=== PATIENT | female | born 1940 | race Caucasian/White ===

== ENCOUNTER 2019-04-21 17:59 | Inpatient (IN) | payer MEDICARE, OTHER, SELFPAY ==
[2019-04-21] VITALS (8 sets, daily range): BP systolic 113–135; BP diastolic 65–71; PULSE 62–115; RESP 16–20; TEMP 36.1–36.7; O2SAT 94–98; BMI 19.6; BMI 20.1
--- NOTE | 2019-04-21 18:50 | RAD_ITS ---
STUDY: X-RAY CHEST REASON FOR EXAM: Female, 78 years old. Cough, SOB. TECHNIQUE: PA and lateral chest. COMPARISON: None. FINDINGS: The lungs are clear and expanded. There is no demonstrated pleural abnormality. Normal size heart. Normal mediastinum and torsten. Normal visualized pulmonary arteries. Normal visualized aortic arch and descending thoracic aorta. Normal visualized thoracic spine. Normal visualized ribs, clavicles, and shoulders. There is no demonstrated abnormality of the visualized soft tissue structures of the upper abdomen. RAD/Chest PA and Lateral IMPRESSION: Normal x-ray examination of the chest. Electronically Signed: Edith Jade MD at 20:17 EST Tel , Service support ,
[2019-04-21] MEDS: Albuterol 2.5 MG/3 ML VIAL.NEB. INHALATION ×3 (18:57→19:36)
[2019-04-21] MEDS: Ipratropium/Albuterol Sulfate 3 ML AMPUL.NEB INHALATION (18:57)
--- NOTE | 2019-04-21 20:11 | ED.VISSUMM ---
- ER Visit Summary Date of Service: 04/21/19 Chief Complaint: Bronchitis History of Present Illness: The patient is a 78 F who states that about 2 weeks ago she became ill starting with a sore throat and then progressed with shortness of breath and cough. She notes a history of asthma and is a former smoker. She states that she went to see her nurse practitioner a few days ago and was started on what sounds like methylprednisolone as well as albuterol. She used to have a nebulizer at home but recently moved from [place] and lost it. She denies any fevers or chills. She states that she has been taking a cough medicine with codeine. She does note sputum production. She states that she just feels very poorly and cannot take a deep breath. Physical Examination: Afebrile vital signs are stable. Gen: Well-nourished well-developed Head: Normocephalic atraumatic Eyes: Perrl EOMI ENT: TMs clear no rhinorrhea moist mucous membranes Neck: Supple no lymphadenopathy no JVD nontender CVS: Regular rate rhythm no murmurs normal S1-S2 Respiratory: No distress diminished breath sounds bilaterally rhonchi and inspiratory and expiratory wheezing chest nontender Abdomen: Soft nontender nondistended normal bowel sounds no masses Back: Nontender Extremity: Nontender no edema Skin: Normal color no rash Neuro: alert orientated ?3 CN II-XII intact normal strength sensation reflexes gait cerebellar Psych: Normal affect normal mood Test Results: Chest x-ray was negative for infiltrate. Potassium 3.1 is most likely due to the albuterol we gave her. Emergency Department Course and Treatment: Patient received 3 breathing treatments. Upon repeat lung auscultation there is improved aeration but continued rhonchi and expiratory wheezing. Patient's peak flows the first 1 was around 350 but the rest were under 300. Patient states she does not feel well and is concerned about her breathing. I think would be reasonable to bring her in under observation status. I administered Solu-Medrol and a dose of doxycycline. Impression: 1. Acute asthmatic bronchitis with bronchospasm This note was generated with [employer] dictation software. It may contain incorrect words, spelling, and punctuation that were not noted in review of the chart prior to signing ED Disposition - Plan for ED Patient: Referrals: Qian Colindres MD [Primary Care Provider] -
[2019-04-21] MEDS: Doxycycline 100 MG CAPSULE PO (20:43)
[2019-04-21] MEDS: MethylPREDNISolone 125 MG/2 ML Vial IV (20:43)
[2019-04-21 21:35] LABS: Anion Gap 9 (5-15); BUN 18 mg/dL (7-18); BUN/Creat Ratio 20.6 RATIO (10-20); Chloride 101 mmol/L (98-107); Creatinine, Serum 0.87 mg/dL (0.55-1.02); EST Glomerular Filtration Rate 66 mL/min (>60); Est Glom Filt Rate - Afr Amer 80 mL/min (>60); Estimated Creatinine Clearance 45.06 ml/min; Glucose 190 mg/dL (74-106); Potassium 3.1 mmol/L (3.5-5.1); Sodium Level 137 mmol/L (136-145)
--- NOTE | 2019-04-21 21:39 | HP.PCM_ITS ---
Problem List (1) Asthmatic bronchitis with acute exacerbation Status: Acute (2) Anxiety Status: Acute History of Present Illness Date of Admission: 04/21/19 Chief Complaint: shortness of breath The patient is a 78 year old F with a significant history of anxiety disorder and asthma who presented to emergency department with 2 weeks of persistent shortness of breath. Her symptoms started with sore throat. Associated with her symptoms is productive cough of dark green sputum. Also she has some mild running nose. Further she has chest pain. She feels congestion in her chest. Reportedly she has been on 2 rounds of Z-Rey. Also she has received Solu-Medrol Dosepak at home. At the emergency department patient was given breathing treatment.; doxycycline and Solu-Medrol. At home she used to use a nebulizer machine for breathing treatment. She recently moved from [place] to [place] and lost her nebulization machine in transit. Now she is on home multidose inhaler. At the emergency department her initial peak flow was about 350. Later it decreased to about 300. Past Medical History Medical History: Medical History (Last Reviewed 04/21/19 @ 22:53 by Phi Bowen MD) Asthma J45.909 Allergies Penicillins Allergy (Verified 04/21/19 18:01) Vomiting MYOCIN Allergy (Uncoded 04/21/19 18:01) Other PT STATES SHE IS ALLERGIC TO MOST MOYCIN DRUGS. Home Medications: Ambulatory Orders Medication Instructions Recorded Albuterol Inhaler [Ventolin Hfa 2 puff INHALATION Q4H PRN PRN 04/21/19 (SP)] Azithromycin 250 mg PO DAILY 04/21/19 Clonazepam 1 mg PO BID 04/21/19 Hydrocodone/Acetaminophen 1 tab PO BID PRN 04/21/19 [Hydrocodone-Acetamin 5-325 mg] MethylPREDNISolone DosePak [Medrol 4 mg PO DAILY 04/21/19 DosePak] Trazodone HCl 100 mg PO DAILY 04/21/19 Surgical History: appendectomy, cholecystectomy, tonsillectomy, - - Lives: With Family Smoking Status: Former smoker Alcohol: None - *Family History Maternal History Items: Cancer - Breast, Dementia Paternal History Items: Heart Disease - Her father from heart problem at age 57 Review of Systems Constitutional: Denies: Chills, Fever, Weight Change HEENT: Reports: Head Aches, Sinus Drainage, Sore Throat Cardiovascular: Reports: Chest Pain. Denies: Palpitations Respiratory: Reports: Cough, Shortness of Breath, Sputum production, Wheezing Gastrointestinal: Denies: Abdominal Pain, Nausea, Vomiting Genitourinary: Denies: Dysuria Musculoskeletal: Denies: Joint Pain, Joint Tenderness Skin: Denies: Rash, Wounds Neurological: Denies: Numbness, Tingling, Focal weakness Psychiatric: Reports: Anxiety. Denies: Depression, Homicidal Ideations, Suicidal Ideations Hematologic/ Lymphatic: Denies: Easy Bruising, Easy Bleeding VTE Information - Inpt Only VTE Present on Admission: No VTE Mechan Device Prophylaxis: None VTE Pharm Prophylaxis ordered?: Yes Patient Problems: Active and Suspected Problems (Last Updated 04/21/19 @ 22:47 by Phi Bowen MD) Asthmatic bronchitis with acute exacerbation (Acute) Anxiety (Acute) - Physical Exam Vitals/I&O's: Vital Signs Temp Pulse Resp BP Pulse Ox 96.9 F L 101 H 20 H 113/68 94 04/21/19 18:01 04/21/19 20:51 04/21/19 20:51 04/21/19 20:51 04/21/19 20:51 Oxygen Delivery Method Room Air Weight: 54.431 kg Body Mass Index (BMI) 19.6 General: Alert, Oriented x3, Cooperative HEENT: Atraumatic, PERRLA, EOMI, Normocephalic, TM's Clear, EAC Clear Neck: Supple, No JVD, Negative Carotid Bruits Lungs: No rales, Rhonchi, Tachypneic, Wheezes Cardiovascular: Regular Rhythm, Normal S1, Normal S2, No murmurs, Tachycardic Abdomen: Bowel Sounds Present, Soft, Non Tender Extremities: No edema, Capillary Refill Less than 3 Seconds Skin: No rashes, No breakdown Musculoskeletal: No Tenderness to Palpation of Joints or Extremities Neurological: Cranial nerves II-XII grossly intact Psych/Mental Status: Anxious Laboratory Results 04/21/19 20:35: WBC Cancelled, Corrected WBC Cancelled, RBC Cancelled, Hgb Cancelled, Hct Cancelled, MCV Cancelled, MCH Cancelled, MCHC Cancelled, RDW Std Deviation Cancelled, RDW Coeff of Ester Cancelled, Plt Count Cancelled, MPV Cancelled, Immature Gran % (Auto) Cancelled, Neut % (Auto) Cancelled, Lymph % (Auto) Cancelled, [place] % (Auto) Cancelled, Eos % (Auto) Cancelled, Baso % (Auto) Cancelled, Absolute Neuts (auto) Cancelled, Absolute Lymphs (auto) Cancelled, Total Counted Cancelled, Neutrophils % (Manual) Cancelled, Band Neutrophils % Cancelled, Lymphocytes % (Manual) Cancelled, Monocytes % (Manual) Cancelled, Eosinophils % (Manual) Cancelled, Basophils % (Manual) Cancelled, Metamyelocytes % Cancelled, Myelocytes % Cancelled, Promyelocytes % Cancelled, Blast Cells % Cancelled, Plasma Cell % (Manual) Cancelled, Other Cells % Cancelled, Nucleated RBC % Cancelled, Nucleated RBCs/100 WBC Cancelled, Differential Comment Cancelled, Diff Path Review Cancelled, Hypersegmented Neuts Cancelled, Atypical Lymphocytes Cancelled, Reactive Lymphocytes Cancelled, Smudge Cells Cancelled, Toxic Granulation Cancelled, Toxic Vacuolation Cancelled, Dohle Bodies Cancelled, Amber Rods Cancelled, Platelet Estimate Cancelled, Plt Morphology Comment Cancelled, RBC Morphology Cancelled, Polychromasia Cancelled, Hypochromasia Cancelled, Poikilocytosis Cancelled, Basophilic Stippling Cancelled, Anisocytosis Cancelled, Microcytosis Cancelled, Macrocytosis Cancelled, Spherocytes Cancelled, Sickle Cells Cancelled, Target Cells Cancelled, Tear Drop Cells Cancelled, Ovalocytes Cancelled, Stomatocytes Cancelled, [place] Bodies Cancelled, [place] Cells Cancelled, Bite Cells Cancelled, Crenated Cell Cancelled, Acanthocytes (Spur) Cancelled, Rouleaux Cancelled, Schistocytes Cancelled 04/21/19 20:35: Sodium Cancelled, Potassium Cancelled, Chloride Cancelled, Carbon Dioxide Cancelled, Anion Gap Cancelled, BUN Cancelled, Creatinine Cancelled, Estim Creat Clear Calc Cancelled, Est GFR (MDRD) Af Amer Cancelled, Est GFR (MDRD) Non-Af Cancelled, BUN/Creatinine Ratio Cancelled, Glucose Cancelled, Calcium Cancelled 04/21/19 21:15: WBC Cancelled, Corrected WBC Cancelled, RBC Cancelled, Hgb Cancelled, Hct Cancelled, MCV Cancelled, MCH Cancelled, MCHC Cancelled, RDW Std Deviation Cancelled, RDW Coeff of Ester Cancelled, Plt Count Cancelled, MPV Cancelled, Immature Gran % (Auto) Cancelled, Neut % (Auto) Cancelled, Lymph % (Auto) Cancelled, [place] % (Auto) Cancelled, Eos % (Auto) Cancelled, Baso % (Auto) Cancelled, Absolute Neuts (auto) Cancelled, Absolute Lymphs (auto) Cancelled, Total Counted Cancelled, Neutrophils % (Manual) Cancelled, Band Neutrophils % Cancelled, Lymphocytes % (Manual) Cancelled, Monocytes % (Manual) Cancelled, Eosinophils % (Manual) Cancelled, Basophils % (Manual) Cancelled, Metamyelocytes % Cancelled, Myelocytes % Cancelled, Promyelocytes % Cancelled, Blast Cells % Cancelled, Plasma Cell % (Manual) Cancelled, Other Cells % Cancelled, Nucleated RBC % Cancelled, Nucleated RBCs/100 WBC Cancelled, Differential Comment Cancelled, Diff Path Review Cancelled, Hypersegmented Neuts Cancelled, Atypical Lymphocytes Cancelled, Reactive Lymphocytes Cancelled, Smudge Cells Cancelled, Toxic Granulation Cancelled, Toxic Vacuolation Cancelled, Dohle Bodies Cancelled, Amber Rods Cancelled, Platelet Estimate Cancelled, Plt Morphology Comment Cancelled, RBC Morphology Cancelled, Polychromasia Cancelled, Hypochromasia Cancelled, Poikilocytosis Cancelled, Basophilic Stippling Cancelled, Anisocytosis Cancelled, Microcytosis Cancelled, Macrocytosis Cancelled, Spherocytes Cancelled, Sickle Cells Cancelled, Target Cells Canc elled, Tear Drop Cells Cancelled, Ovalocytes Cancelled, Stomatocytes Cancelled, [place] Bodies Cancelled, [place] Cells Cancelled, Bite Cells Cancelled, Crenated Cell Cancelled, Acanthocytes (Spur) Cancelled, Rouleaux Cancelled, Schistocytes Cancelled 04/21/19 21:15: Sodium 137, Potassium 3.1 L, Chloride 101, Carbon Dioxide 27.0, Anion Gap 9, BUN 18, Creatinine 0.87, Estim Creat Clear Calc 45.06, Est GFR (MDRD) Af Amer 80, Est GFR (MDRD) Non-Af 66, BUN/Creatinine Ratio 20.6 H, Glucose 190 H, Calcium 9.0 Assessment/Plan All Active Problems (Last Updated 04/21/19 @ 22:47 by Phi Bowen MD) Asthmatic bronchitis with acute exacerbation (Acute) Anxiety (Acute) The patient is a 78 year old F with a significant history of anxiety disorder and asthma who presented to emergency department with 2 weeks of persistent shortness of breath; sore throat; productive cough of dark green sputum; mild runny nose; chest pain consistent acute asthmatic bronchitis. Acute exacerbation of asthmatic bronchitis Likely viral but with but with persistent symptoms for about 2 weeks we will continue patient on doxycycline that was started at the emergency department. Schedule breathing treatments and PRN breathing treatments ordered. Patient received Solu-Medrol 125 mg in the emergency department. Continue patient on salmeterol inpatient. Acapella and peak flow ordered. Mucinex ordered We will get comprehensive respiratory pathogen panel. 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 Placed on MedSurg on telemetry. Potassium 60 mEq x 1; and 40 mEq twice daily Trend BMP. Anxiety disorder: Klonopin continued Insomnia Home trazodone continued DVT Prophylaxis Subcutaneous Lovenox ordered. Code Visit OBSV E&M: 91268 Initial observation care L3
[2019-04-21 22:02] LABS: Absolute Lymphocyte Count 0.87 X10^3/uL (0.83-4.51); Absolute Neutrophil Count 7.8 X10^3/uL (2.0-7.7); Basophil# 0.01 X10^3/uL; Basophil% 0.1 % (0-1); Hematocrit 42.1 % (37-47); Hemoglobin 14.2 g/dL (12.0-15.0); Lymphocyte # 0.87 X10^3/ul (4.0); Lymphocyte % 9.5 % (19-41); Mean Corp Hgb Conc 33.7 g/dL (32-36); Mean Corpuscular Hgb 33.1 pg (27.0-32.0); Mean Corpuscular Volume 98.1 fL (81-99); Mean Platelet Vol. 9.1 fl (6.2-12.0); Monocyte# 0.46 X10^3/uL; NRBC Flagged by Analyzer 0 % (0-5); Neutrophil # 7.76 X10^3/uL (2.7-7.7); Neutrophil % 84.9 % (47-70); Platelet Count 185 K/mm3 (150-450); RBC Distribution Width SD 43.3 fl (35.1-43.9); Red Blood Count 4.29 M/mm3 (4.2-5.4); White Blood Count 9.2 K/mm3 (4.4-11.0)
[2019-04-21 23:12] LABS: Hemoglobin A1c 5.2 % (4.2-6.3)
[2019-04-22] VITALS (13 sets, daily range): BP systolic 125–137; BP diastolic 65–83; PULSE 70–119; RESP 14–20; TEMP 36.7–37.1; O2SAT 97–100
[2019-04-22] MEDS: traZODone 100 MG Tablet PO ×2 (00:25→21:13)
[2019-04-22] MEDS: guaiFENesin 1,200 MG Tablet 1200 MG PO ×3 (00:26→21:13)
[2019-04-22] MEDS: Acetaminophen 325 MG Tablet 650 MG PO (04:15)
[2019-04-22] MEDS: Albuterol 2.5 MG/3 ML VIAL.NEB. INHALATION ×2 (05:49→20:29)
[2019-04-22 05:57] LABS: Anion Gap 7 (5-15); BUN 13 mg/dL (7-18); BUN/Creat Ratio 16.4 RATIO (10-20); Calcium,Total 8.7 mg/dL (8.5-10.1); Chloride 105 mmol/L (98-107); EST Glomerular Filtration Rate 74 mL/min (>60); Est Glom Filt Rate - Afr Amer 90 mL/min (>60); Estimated Creatinine Clearance 50.14 ml/min; Glucose 144 mg/dL (74-106); Potassium 4.5 mmol/L (3.5-5.1); Sodium Level 137 mmol/L (136-145)
--- NOTE | 2019-04-22 07:33 | PN_ITS ---
Patient Problems: Active and Suspected Problems (Last Reviewed 04/21/19 @ 22:53 by Phi Bowen MD) Asthmatic bronchitis with acute exacerbation (Acute) Anxiety (Acute) Reason for Visit: Follow-up acute asthma exacerbation Subjective: Patient is a 78-year-old lady with history of moderate intermittent asthma who presented with shortness of breath an assessment of acute asthma exacerbation made admitted to regular nursing floor for further management Objective: GENERAL: cooperative HEENT: Atraumatic; EYES; Anicteric, Normal Conjunctiva NECK; supple, normal thyroid, RESPIRATORY: Diminished to auscultation with bilateral wheezes CARDIOVASCULAR: Regular S1 S2, GI: soft, normoactive bowel sounds, : No Renal angle tenderness; EXTREMITIES: No edema, no clubbing, MUSCULOSKELETAL: no muscle waisting NEURO: Awake; no lateralizing signs. SKIN: No Rash PSYCH; Flat affect Vitals/I&O's: Vital Signs Temp Pulse Resp BP Pulse Ox 98.7 F 85 18 130/72 H 98 04/22/19 05:17 04/22/19 05:49 04/22/19 05:49 04/22/19 05:17 04/22/19 05:17 Oxygen Delivery Method Room Air Weight: 55.7 kg Body Mass Index (BMI) 20.1 Intake and Output for Last 24 Hours 04/20/19 04/21/19 04/22/19 23:59 23:59 23:59 Intake Total 1200 / 1200 Balance 1200 / 1200 Laboratory Results 04/21/19 20:35: WBC Cancelled, Corrected WBC Cancelled, RBC Cancelled, Hgb Cancelled, Hct Cancelled, MCV Cancelled, MCH Cancelled, MCHC Cancelled, RDW Std Deviation Cancelled, RDW Coeff of Ester Cancelled, Plt Count Cancelled, MPV Cancelled, Immature Gran % (Auto) Cancelled, Neut % (Auto) Cancelled, Lymph % (Auto) Cancelled, [place] % (Auto) Cancelled, Eos % (Auto) Cancelled, Baso % (Auto) Cancelled, Absolute Neuts (auto) Cancelled, Absolute Lymphs (auto) Cancelled, Total Counted Cancelled, Neutrophils % (Manual) Cancelled, Band Neutrophils % Cancelled, Lymphocytes % (Manual) Cancelled, Monocytes % (Manual) Cancelled, Eosinophils % (Manual) Cancelled, Basophils % (Manual) Cancelled, Metamyelocytes % Cancelled, Myelocytes % Cancelled, Promyelocytes % Cancelled, Blast Cells % Cancelled, Plasma Cell % (Manual) Cancelled, Other Cells % Cancelled, Nucleated RBC % Cancelled, Nucleated RBCs/100 WBC Cancelled, Differential Comment Cancelle d, Diff Path Review Cancelled, Hypersegmented Neuts Cancelled, Atypical Lymphocytes Cancelled, Reactive Lymphocytes Cancelled, Smudge Cells Cancelled, Toxic Granulation Cancelled, Toxic Vacuolation Cancelled, Dohle Bodies Cancelled, Amber Rods Cancelled, Platelet Estimate Cancelled, Plt Morphology Comment Cancelled, RBC Morphology Cancelled, Polychromasia Cancelled, Hypochromasia Cancelled, Poikilocytosis Cancelled, Basophilic Stippling Cancelled, Anisocytosis Cancelled, Microcytosis Cancelled, Macrocytosis Cancelled, Spherocytes Cancelled, Sickle Cells Cancelled, Target Cells Cancelled, Tear Drop Cells Cancelled, Ovalocytes Cancelled, Stomatocytes Cancelled, [place] Bodies Cancelled, [place] Cells Cancelled, Bite Cells Cancelled, Crenated Cell Cancelled, Acanthocytes (Spur) Cancelled, Rouleaux Cancelled, Schistocytes Cancelled 04/21/19 20:35: Sodium Cancelled, Potassium Cancelled, Chloride Cancelled, Carbon Dioxide Cancelled, Anion Gap Cancelled, BUN Cancelled, Creatinine Cancelled, Estim Creat Clear Calc Cancelled, Est GFR (MDRD) Af Amer Cancelled, Est GFR (MDRD) Non-Af Cancelled, BUN/Creatinine Ratio Cancelled, Glucose Cancelled, Calcium Cancelled 04/21/19 21:15: WBC Cancelled, Corrected WBC Cancelled, RBC Cancelled, Hgb Cancelled, Hct Cancelled, MCV Cancelled, MCH Cancelled, MCHC Cancelled, RDW Std Deviation Cancelled, RDW Coeff of Ester Cancelled, Plt Count Cancelled, MPV Cancelled, Immature Gran % (Auto) Cancelled, Neut % (Auto) Cancelled, Lymph % (Auto) Cancelled, [place] % (Auto) Cancelled, Eos % (Auto) Cancelled, Baso % (Auto) Cancelled, Absolute Neuts (auto) Cancelled, Absolute Lymphs (auto) Cancelled, Total Counted Cancelled, Neutrophils % (Manual) Cancelled, Band Neutrophils % Cancelled, Lymphocytes % (Manual) Cancelled, Monocytes % (Manual) Cancelled, Eosinophils % (Manual) Cancelled, Basophils % (Manual) Cancelled, Metamyelocytes % Cancelled, Myelocytes % Cancelled, Promyelocytes % Cancelled, Blast Cells % Cancelled, Plasma Cell % (Manual) Cancelled, Other Cells % Cancelled, Nucleated RBC % Cancelled, Nucleated RBCs/100 WBC Cancelled, Differential Comment Cancelled, Diff Path Review Cancelled, Hypersegmented Neuts Cancelled, Atypical Lymphocytes Cancelled, Reactive Lymphocytes Cancelled, Smudge Cells Cancelled, Toxic Granulation Cancelled, Toxic Vacuolation Cancelled, Dohle Bodies Cancelled, Amber Rods Cancelled, Platelet Estimate Cancelled, Plt Morphology Comment Cancelled, RBC Morphology Cancelled, Polychromasia Cancelled, Hypochromasia Cancelled, Poikilocytosis Cancelled, Basophilic Stippling Cancelled, Anisocytosis Cancelled, Microcytosis Cancelled, Macrocytosis Cancelled, Spherocytes Cancelled, Sickle Cells Cancelled, Target Cells Cancelled, Tear Drop Cells Cancelled, Ovalocytes Cancelled, Stomatocytes Cancelled, [place] Bodies Cancelled, [place] Cells Cancelled, Bite Cells Cancelled, Crenated Cell Cancelled, Acanthocytes (Spur) Cancelled, Rouleaux Cancelled, Schistocytes Cancelled 04/21/19 21:15: Sodium 137, Potassium 3.1 L, Chloride 101, Carbon Dioxide 27.0, Anion Gap 9, BUN 18, Creatinine 0.87, Estim Creat Clear Calc 45.06, Est GFR (MDRD) Af Amer 80, Est GFR (MDRD) Non-Af 66, BUN/Creatinine Ratio 20.6 H, Glucose 190 H, Calcium 9.0 04/21/19 21:39: WBC 9.2, RBC 4.29, Hgb 14.2, Hct 42.1, MCV 98.1, MCH 33.1 H, MCHC 33.7, RDW Std Deviation 43.3, RDW Coeff of Ester 12.0, Plt Count 185, MPV 9.1, Immature Gran % (Auto) 0.500, Neut % (Auto) 84.9 H, Lymph % (Auto) 9.5 L, [place] % (Auto) 5.0, Eos % (Auto) 0.0, Baso % (Auto) 0.1, Absolute Neuts (auto) 7.8 H, Absolute Lymphs (auto) 0.87, Nucleated RBC % 0 04/21/19 21:39: Hemoglobin A1c 5.2 04/22/19 05:05: Sodium 137, Potassium 4.5, Chloride 105, Carbon Dioxide 25.0, Anion Gap 7, BUN 13, Creatinine 0.80, Estim Creat Clear Calc 50.14, Est GFR (MDRD) Af Amer 90, Est GFR (MDRD) Non-Af 74, BUN/Creatinine Ratio 16.4, Glucose 144 H, Calcium 8.7 Current Medications Acetaminophen (Tylenol) 650 mg PO Q6H PRN PRN PRN Reason: Pain Score 1-3/Temp > 100.7 F Last Admin: 04/22/19 04:15 Dose: 650 mg Documented by: Albuterol Sulfate (Ventolin Aerosols) 2.5 mg INHALATION Q2H PRN PRN PRN Reason: Shortness of Breath/Wheezing Last Admin: 04/22/19 05:49 Dose: 2.5 mg Documented by: Clonazepam (Klonopin) 1 mg PO BID COUNTS INCLUDE 234 BEDS AT THE [facility] Dextrose (D50w Syringe) 0 gm IV X1 PRN; Protocol PRN Reason: Hypoglycemia Doxycycline Monohydrate (Doxycycline) 100 mg PO BID RAM[facility]N Enoxaparin Sodium (Lovenox) 40 mg SC DAILY RAM[facility]N Glucagon () 1 mg IM .X1 PRN PRN Reason: Hypoglycemia Guaifenesin (Mucinex) 1,200 mg PO BID COUNTS INCLUDE 234 BEDS AT THE [facility] Last Admin: 04/22/19 00:26 Dose: 1,200 mg Documented by: Insulin Human Lispro (Humalog Kwikpen (Bkc)) 0 unit SC [facility] COUNTS INCLUDE 234 BEDS AT THE [facility]; Protocol Last Admin: 04/22/19 06:49 Dose: Not Given Documented by: Methylprednisolone (Solu-Medrol) 40 mg IV Q8 COUNTS INCLUDE 234 BEDS AT THE [facility] Last Admin: 04/22/19 05:16 Dose: Not Given Documented by: Ondansetron HCl (Zofran) 4 mg IV Q8H PRN PRN PRN Reason: NAUSEA/VOMITING Potassium Chloride (K-Dur) 40 meq PO BIDCM COUNTS INCLUDE 234 BEDS AT THE [facility] Senna/Docusate Sodium (Senokot-S, Violet-Colace) 2 tablet PO BID PRN PRN PRN Reason: Constipation Sodium Chloride () 10 - 40 ml IV UD PRN PRN Reason: SALINE FLUSH Trazodone HCl (Desyrel) 100 mg PO QHS COUNTS INCLUDE 234 BEDS AT THE [facility] Last Admin: 04/22/19 00:25 Dose: 100 mg Documented by: STROKE Vital Signs/Narrative: Vital Signs Temp Pulse Resp BP Pulse Ox 04/22/19 05:49 85 18 04/22/19 05:17 98.7 F 70 20 H 130/72 H 98 04/22/19 04:35 97 04/22/19 04:00 89 Medical Necessity - Tobacco Use Smoking Status: Former smoker Tobacco Use: Cigarettes Assessment/Plan All Active Problems (Last Reviewed 04/21/19 @ 22:53 by Phi Bowen MD) Asthmatic bronchitis with acute exacerbation (Acute) Anxiety (Acute) Patient is a 78-year-old lady with history of moderate intermittent asthma who presented with shortness of breath an assessment of acute asthma exacerbation made admitted to regular nursing floor for further management 1. Acute asthma exacerbation ?Suspected to be preceded by probable viral bronchitis. Admitted to regular nursing floor managed with aerosol treatment systemic steroid as well as doxycycline. Patient is scheduled to be seen by a superintendent gas distribution at [facility] Main campus 2. Chronic diarrhea - patient has had extensive work-up with no identifiable source takes Imodium as needed this was resumed 3. Hypokalemia corrected per protocol 4. Anxiety disorder Patient is on Klonopin continued 5. DVT prophylaxis ~ on enoxaparin Code Visit OBSV E&M: 60213 Subsequent observation care L3
[2019-04-22] MEDS: Enoxaparin 40 MG/0.4 ML Syringe SC (09:01)
[2019-04-22] MEDS: clonazePAM 1 MG Tablet PO ×2 (09:04→19:55)
[2019-04-22 12:00] LABS: Bedside Glucose 62 mg/dL (70-110)
[2019-04-22 17:01] LABS: Bedside Glucose 97 mg/dL (70-110)
[2019-04-22 21:45] LABS: Bedside Glucose 117 mg/dL (70-110)
[2019-04-23] VITALS (16 sets, daily range): BP systolic 116–156; BP diastolic 63–87; PULSE 55–99; RESP 16–22; TEMP 36.4–36.8; O2SAT 95–100
--- NOTE | 2019-04-23 07:26 | PCM.PN.HOSP ---
Patient Problems: Active and Suspected Problems (Last Reviewed 04/21/19 @ 22:53 by Phi Bowen MD) Asthmatic bronchitis with acute exacerbation (Acute) Anxiety (Acute) Reason for Visit: Acute viral asthmatic bronchitis Subjective: Patient seen has persistent cough. Her viral assay came back positive for RSV A. The patient still experiencing significant bronchospasm consult was placed to pulmonary medicine. Objective: GENERAL: cooperative HEENT: Atraumatic; EYES; Anicteric, Normal Conjunctiva NECK; supple, normal thyroid, RESPIRATORY: Diminished to auscultation with bilateral wheezes CARDIOVASCULAR: Regular S1 S2, GI: soft, normoactive bowel sounds, : No Renal angle tenderness; EXTREMITIES: No edema, no clubbing, MUSCULOSKELETAL: no muscle waisting NEURO: Awake; no lateralizing signs. SKIN: No Rash PSYCH; Flat affect Vitals/I&O's: Vital Signs Temp Pulse Resp BP Pulse Ox 98.1 F 55 L 18 136/77 H 96 04/23/19 03:25 04/23/19 03:25 04/23/19 03:30 04/23/19 03:25 04/23/19 03:25 Oxygen Delivery Method Room Air Weight: 55.7 kg Body Mass Index (BMI) 20.1 Intake and Output for Last 24 Hours 04/21/19 04/22/19 04/23/19 23:59 23:59 23:59 Intake Total 1840 / 1840 Balance 1840 / 1840 Microbiology Past 72 Hours 04/22/19 04:10 Mucosa - Nasopharyngeal Respiratory Panel (PCR) - Final RSV A Laboratory Results 04/22/19 11:30: POC Glucose 62 L 04/22/19 16:51: POC Glucose 97 04/22/19 21:30: POC Glucose 117 H Current Medications Acetaminophen (Tylenol) 650 mg PO Q6H PRN PRN PRN Reason: Pain Score 1-3/Temp > 100.7 F Last Admin: 04/22/19 04:15 Dose: 650 mg Documented by: Albuterol Sulfate (Ventolin Aerosols) 2.5 mg INHALATION Q2H PRN PRN PRN Reason: Shortness of Breath/Wheezing Last Admin: 04/22/19 20:29 Dose: 2.5 mg Documented by: Clonazepam (Klonopin) 1 mg PO BID RAMÓN Last Admin: 04/22/19 19:55 Dose: 1 mg Documented by: Dextrose (D50w Syringe) 0 gm IV X1 PRN; Protocol PRN Reason: Hypoglycemia Enoxaparin Sodium (Lovenox) 40 mg SC DAILY [facility] Last Admin: 04/22/19 09:01 Dose: 40 mg Documented by: Glucagon () 1 mg IM .X1 PRN PRN Reason: Hypoglycemia Guaifenesin (Mucinex) 1,200 mg PO BID [facility] Last Admin: 04/22/19 21:13 Dose: 1,200 mg Documented by: Insulin Human Lispro (Humalog Kwikpen (Bkc)) 0 unit SC ACHS [facility]; Protocol Last Admin: 04/23/19 06:35 Dose: Not Given Documented by: Methylprednisolone (Solu-Medrol) 40 mg IV Q8 [facility] Last Admin: 04/23/19 06:35 Dose: Not Given Documented by: Ondansetron HCl (Zofran) 4 mg IV Q8H PRN PRN PRN Reason: NAUSEA/VOMITING Potassium Chloride (K-Dur) 40 meq PO BIDCM [facility] Last Admin: 04/22/19 16:52 Dose: 40 meq Documented by: Senna/Docusate Sodium (Senokot-S, Violet-Colace) 2 tablet PO BID PRN PRN PRN Reason: Constipation Sodium Chloride () 10 - 40 ml IV UD PRN PRN Reason: SALINE FLUSH Sodium Chloride () 10 - 40 ml IV UD PRN PRN Reason: SALINE FLUSH Trazodone HCl (Desyrel) 100 mg PO QHS [facility] Last Admin: 04/22/19 21:13 Dose: 100 mg Documented by: STROKE Vital Signs/Narrative: Vital Signs Resp 04/23/19 03:30 18 Medical Necessity - Tobacco Use Smoking Status: Former smoker Tobacco Use: Cigarettes Assessment/Plan All Active Problems (Last Reviewed 04/21/19 @ 22:53 by Phi Bowen MD) Asthmatic bronchitis with acute exacerbation (Acute) Anxiety (Acute) Patient is a 78-year-old lady with history of moderate intermittent asthma who presented with shortness of breath an assessment of acute asthma exacerbation made admitted to regular nursing floor for further management 1. Acute asthma exacerbation ?Suspected to be preceded by probable viral bronchitis. Admitted to regular nursing floor managed with aerosol treatment systemic steroid as well as doxycycline. Patient is scheduled to be seen by a integration solution architect at [facility] Main campus ?04/23/2019:Patient seen has persistent cough. Her viral assay came back positive for RSV A. The patient still experiencing significant bronchospasm consult was placed to pulmonary medicine. 2. Chronic diarrhea - patient has had extensive work-up with no identifiable source; takes Imodium as needed this was resumed 3. Hypokalemia corrected per protocol 4. Anxiety disorder Patient is on Klonopin continued 5. DVT prophylaxis ~ on enoxaparin Code Visit OBSV E&M: 16715 Subsequent observation care L3
[2019-04-23] MEDS: clonazePAM 1 MG Tablet PO ×2 (08:13→21:06)
[2019-04-23 08:15] LABS: Bedside Glucose 108 mg/dL (70-110)
[2019-04-23] MEDS: guaiFENesin Dm 10 ML UDC PO ×2 (10:21→19:28)
[2019-04-23] MEDS: predniSONE 20 MG Tablet 40 MG PO (10:21)
[2019-04-23] MEDS: Enoxaparin 40 MG/0.4 ML Syringe SC (10:34)
--- NOTE | 2019-04-23 10:36 | PCM.CONS.PUL ---
Problem List (1) Asthmatic bronchitis with acute exacerbation Status: Acute Qualifiers: Asthma severity: moderate Asthma persistence: persistent Qualified Code(s): J45.41 - Moderate persistent asthma with (acute) exacerbation (2) Anxiety Status: Chronic Reason for Consult Date of Consultation: 04/23/19 Reason for Consultation: Asthma exacerbation History of Present Illness: The patient is a 78 year old F, with past medical history listed below, who presented to [facility] on 04/21/2019 secondary to progressive shortness of breath and cough. Patient reportedly had been complaining for over 2 weeks prior to presentation. Patient had been seen by a nurse practitioner at the primary primary care office and was placed on methylprednisolone and albuterol. Patient denied any fevers or chills, but stated that her cough was productive of clear to pale yellow sputum. Patient had been taking codeine as a cough suppressant. On presentation to the ER, patient was noted to be diminished with peak flows under 300. Patient received 3 breathing treatments, but continued to have rhonchi and wheezing. Patient was placed on Solu-Medrol, doxycycline and admitted to the floor for further evaluation. Over the course of the hospitalization, patient has done okay. Patient has persisted in coughing and wheezing, so a pulmonary consult was obtained. Patient reports a long history of asthma. Patient states that as a child she had been hospitalized many times and placed in an oxygen tent. Patient states that she did well for some time after teenage years, but started to have issues in the late 70s. Patient states that she does have a history of using albuterol as needed. Patient estimates that she has been receiving prednisone bursts 1-3 times a year for the past 3 years. Patient has not seen a hospitality manager or received pulmonary function testing that time. Patient states that she has not required hospitalization previously. Patient does state the prednisone tends to lead to significant anxiety, so I hate to take it. Patient does not believe she has been on a controller medication in many years. Patient does give a history of smoking in the past, but has not smoked in several years. Patient denies any alcohol or drug use. Patient denies any exposure to asbestos or TB. Patient recently moved back to [place], but plans to move to [place] in the next year or so. Review of systems otherwise negative from a constitutional, HEENT, respiratory, cardiovascular, GI, genitourinary, musculoskeletal, skin, neurologic, psychiatric and hematologic system unless stated above. Past Medical History Past Medical History (Chronic Problems): Chronic Problems (Last Reviewed 04/21/19 @ 22:53 by Phi Bowen MD) Anxiety (Chronic) Medical History: Medical History (Last Reviewed 04/21/19 @ 22:53 by Phi Bowen MD) Asthma J45.909 Allergies Penicillins Allergy (Verified 04/21/19 18:01) Vomiting MYOCIN Allergy (Uncoded 04/21/19 23:08) Nausea PT STATES SHE IS ALLERGIC TO MOST MYOCIN DRUGS. Home Medications: Ambulatory Orders Medication Instructions Recorded Albuterol Inhaler [Ventolin Hfa 2 puff INHALATION Q4H PRN PRN 04/21/19 (SP)] Clonazepam 1 mg PO BID 04/21/19 MethylPREDNISolone DosePak [Medrol 4 mg PO DAILY 04/21/19 DosePak] Trazodone HCl 100 mg PO QHS 04/21/19 Surgical History: appendectomy, cholecystectomy, tonsillectomy, - - Lives: With Family Smoking Status: Former smoker Tobacco Use: Cigarettes Alcohol: None - *Family History Maternal History Items: Cancer - Breast, Dementia Paternal History Items: Heart Disease - Her father from heart problem at age 57 Review of Systems Comment: See HPI Patient Problems: Active and Suspected Problems (Last Reviewed 04/21/19 @ 22:53 by Phi Bowen MD) Asthmatic bronchitis with acute exacerbation (Acute) Objective: Chest x-ray was personally reviewed and shows no acute infiltrate or effusion. - Physical Exam Vitals/I&O's: Vital Signs Temp Pulse Resp BP Pulse Ox 36.8 C 64 22 H 156/87 H 96 04/23/19 08:05 04/23/19 08:05 04/23/19 08:05 04/23/19 08:05 04/23/19 08:05 Oxygen Delivery Method Room Air Weight: 55.7 kg Body Mass Index (BMI) 20.1 Intake and Output for Last 24 Hours 04/21/19 04/22/19 04/23/19 23:59 23:59 23:59 Intake Total 1840 / 1840 0 / 0 Balance 1840 / 1840 0 / 0 General: Alert, Oriented x3, Cooperative, - - Mild conversational dyspnea. Thin build. Anxious. Multiple coughing episodes during evaluation. HEENT: Atraumatic, PERRLA, EOMI, Normocephalic, - - No scleral icterus or injection noted Oral: Moist Mucosa, No Gingival or Mucosal Lesions/ Ulcerations Neck: Supple, No JVD, No Nodes, Trachea Midline Lungs: No rhonchi, No rales, Diminished, Wheezes - At end exhalation, - Cardiovascular: Regular rate - Symmetric expansion. No dullness to percussion., Regular Rhythm, Normal S1, Normal S2, No murmurs, No rub noted, No Gallop Abdomen: Bowel Sounds Present, Soft, Non Tender, Non-Distended Extremities: No clubbing, No cyanosis, No edema, Capillary Refill Less than 3 Seconds Skin: No rashes, No breakdown, - - Some dermal atrophy Musculoskeletal: No Tenderness to Palpation of Joints or Extremities Lymphatic: No Cervical, Supraclavicular, or Inguinal Adenopathy Neurological: Cranial nerves II-XII grossly intact, Neuro grossly intact, Motor Exam 5/5 strength throughout Psych/Mental Status: Alert and oriented to time, place, person, mood and affect Microbiology Past 72 Hours 04/22/19 04:10 Mucosa - Nasopharyngeal Respiratory Panel (PCR) - Final RSV A Laboratory Results 04/22/19 11:30: POC Glucose 62 L 04/22/19 16:51: POC Glucose 97 04/22/19 21:30: POC Glucose 117 H 04/23/19 06:34: POC Glucose 108 Clinical Impression(s) from Imaging Studies Chest X-Ray 04/21/19 18:50 IMPRESSION: Normal x-ray examination of the chest. Electronically Signed: Edith Jade MD at 20:17 EST Tel , Service support , Current Medications Acetaminophen (Tylenol) 650 mg PO Q6H PRN PRN PRN Reason: Pain Score 1-3/Temp > 100.7 F Last Admin: 04/22/19 04:15 Dose: 650 mg Documented by: Albuterol Sulfate (Ventolin Aerosols) 2.5 mg INHALATION Q2H PRN PRN PRN Reason: Shortness of Breath/Wheezing Last Admin: 04/22/19 20:29 Dose: 2.5 mg Documented by: Clonazepam (Klonopin) 1 mg PO BID [facility] Last Admin: 04/23/19 08:13 Dose: 1 mg Documented by: Dextrose (D50w Syringe) 0 gm IV X1 PRN; Protocol PRN Reason: Hypoglycemia Enoxaparin Sodium (Lovenox) 40 mg SC DAILY [facility] Last Admin: 04/23/19 10:34 Dose: 40 mg Documented by: Glucagon () 1 mg IM .X1 PRN PRN Reason: Hypoglycemia Guaifenesin (Robitussin Dm) 10 ml PO Q6H PRN PRN PRN Reason: COUGH Last Admin: 04/23/19 10:21 Dose: 10 ml Documented by: Insulin Human Lispro (Humalog Kwikpen (Bkc)) 0 unit SC [facility]; Protocol Last Admin: 04/23/19 06:35 Dose: Not Given Documented by: Loperamide HCl (Imodium) 2 mg PO Q4H PRN PRN PRN Reason: diarhea Ondansetron HCl (Zofran) 4 mg IV Q8H PRN PRN PRN Reason: NAUSEA/VOMITING Potassium Chloride (K-Dur) 40 meq PO BIDCM [facility] Last Admin: 04/23/19 08:13 Dose: 40 meq Documented by: Prednisone () 40 mg PO DAILY@0800 [facility] Last Admin: 04/23/19 10:21 Dose: 40 mg Documented by: Sodium Chloride () 10 - 40 ml IV UD PRN PRN Reason: SALINE FLUSH Sodium Chloride () 10 - 40 ml IV UD PRN PRN Reason: SALINE FLUSH Trazodone HCl (Desyrel) 100 mg PO QHS [facility] Last Admin: 04/22/19 21:13 Dose: 100 mg Documented by: Assessment/Plan All Active Problems (Last Reviewed 04/21/19 @ 22:53 by Phi Bowen MD) Asthmatic bronchitis with acute exacerbation (Acute) RECOMMENDATIONS: 1. Obtain walking oximetry 2. Continue steroids to complete a 5-day burst 3. PRN albuterol likely sufficient at discharge 4. Outpatient follow-up with nurse practitioner 2 weeks after discharge 5. Obtain complete PFT 6. Okay to discharge from a pulmonary perspective if no supplemental oxygen is necessary IMPRESSIONS: 1. Probable acute asthma exacerbation secondary to RSV Patient's protracted course not unexpected with RSV in the setting of uncontrolled asthma. That being said, patient appears to be receiving multiple steroid bursts a year secondary to poor baseline control. Patient should have an outpatient complete pulmonary function test. From an acute standpoint, a walking oximetry should be obtained to rule out exertional hypoxemia. If patient is doing well, likely okay to discharge with a 5-day steroid burst. Patient can follow-up in our office in 2 weeks to establish care and obtain pulmonary function test. Patient does have a smoking history, but it does not appear to be long enough to lead to COPD. Likely okay to just have the 5-day burst. No eosinophils were noted on presentation, but patient had been treated with steroids, so this is questionable for interpretation. 2. Anxiety/advanced age Complicates care, management, recovery and prognosis. Stressed to the patient the importance of recovery from the acute exacerbation. Code Visit Inpatient E&M: 90224 Init Hosp L2
--- NOTE | 2019-04-23 11:28 | NURSING ---
one touch 52, lunch tray present and eating now. pt is asymptomatic. [place] juice given.
--- NOTE | 2019-04-23 13:40 | CASEMGMT ---
RN CM Face to Face with patient for initial transition planning/care coordination assessment. RN CM introduced self and role at [facility]. Patient lying in bed, alert and oriented. Patient willing to participate in assessment and is able to answer all questions appropriately. Care providers, pharmacy, and demographics verified. Patient wishes to discharge home, denies need for home health at this time. Patient states she has no further needs or concerns at this time. CM to follow for discharge planning needs that may arise. PCP: Jens Specialists: Jonny Coy Preferred Pharmacy: [place] [facility] Prescription Benefit: yes Living Will/HPOA: None LNOK: Sister Living Arrangements: Patient lives with sister in first floor apartment with no steps to enter. Patient is independent at home and still works as [employer] 3x per week. Transportation: self DME/HHC: Patient states that she has a nebulizer machine, but has missed placed it during her recent move. CM to assist with new nebulizer. Patient states she prefers [facility]. Disposition Plan: Patient to discharge home with family support and follow-up plans in place. Sri SOW, RN, CM
[2019-04-23 13:55] LABS: Bedside Glucose 124 mg/dL (70-110)
[2019-04-23 13:55] LABS: Bedside Glucose 53 mg/dL (70-110)
[2019-04-23] MEDS: Albuterol 2.5 MG/3 ML VIAL.NEB. INHALATION ×2 (15:53→19:30)
[2019-04-23 16:10] LABS: Bedside Glucose 90 mg/dL (70-110)
[2019-04-23] MEDS: Acetaminophen 325 MG Tablet 650 MG PO (17:12)
[2019-04-23] MEDS: Loperamide 2 MG Capsule PO (19:28)
[2019-04-23] MEDS: traZODone 100 MG Tablet PO (22:39)
[2019-04-23] MEDS: 0.9% Saline Lock 10 ML Syringe IV (22:40)
[2019-04-23 22:50] LABS: Bedside Glucose 84 mg/dL (70-110)
[2019-04-24] VITALS (12 sets, daily range): BP systolic 109–141; BP diastolic 70–83; PULSE 56–130; RESP 16–18; TEMP 36.4–36.6; O2SAT 94–98
[2019-04-24] MEDS: 0.9% Saline Lock 10 ML Syringe IV ×3 (06:34→21:43)
[2019-04-24 06:40] LABS: Bedside Glucose 98 mg/dL (70-110)
[2019-04-24] MEDS: Albuterol 2.5 MG/3 ML VIAL.NEB. INHALATION ×2 (07:41→19:38)
--- NOTE | 2019-04-24 07:47 | PCM.PN.HOSP ---
Patient Problems: Active and Suspected Problems (Last Reviewed 04/21/19 @ 22:53 by Phi Bowen MD) Asthmatic bronchitis with acute exacerbation (Acute) Reason for Visit: Follow-up acute asthmatic bronchitis Subjective: Seen appears back to baseline. Patient however states she is not ready for discharge and thinks she will be ready for discharge on 04/25/2019 Objective: GENERAL: cooperative HEENT: Atraumatic; EYES; Anicteric, Normal Conjunctiva NECK; supple, normal thyroid, RESPIRATORY: Diminished to auscultation with bilateral wheezes CARDIOVASCULAR: Regular S1 S2, GI: soft, normoactive bowel sounds, : No Renal angle tenderness; EXTREMITIES: No edema, no clubbing, MUSCULOSKELETAL: no muscle waisting NEURO: Awake; no lateralizing signs. SKIN: No Rash PSYCH; Flat affect Vitals/I&O's: Vital Signs Temp Pulse Resp BP Pulse Ox 97.6 F L 63 18 140/82 H 98 04/24/19 06:06 04/24/19 07:41 04/24/19 07:41 04/24/19 06:06 04/24/19 07:41 Oxygen Delivery Method Room Air Weight: 55.7 kg Body Mass Index (BMI) 20.1 Intake and Output for Last 24 Hours 04/22/19 04/23/19 04/24/19 23:59 23:59 23:59 Intake Total 1840 / 1840 300 / 300 100 / 100 Balance 1840 / 1840 300 / 300 100 / 100 Microbiology Past 72 Hours 04/22/19 04:10 Mucosa - Nasopharyngeal Respiratory Panel (PCR) - Final RSV A Laboratory Results 04/23/19 06:34: POC Glucose 108 04/23/19 11:26: POC Glucose 53 L 04/23/19 12:12: POC Glucose 124 H 04/23/19 15:58: POC Glucose 90 04/23/19 22:38: POC Glucose 84 04/24/19 06:32: POC Glucose 98 Current Medications Acetaminophen (Tylenol) 650 mg PO Q6H PRN PRN PRN Reason: Pain Score 1-3/Temp > 100.7 F Last Admin: 04/23/19 17:12 Dose: 650 mg Documented by: Albuterol Sulfate (Ventolin Aerosols) 2.5 mg INHALATION Q2H PRN PRN PRN Reason: Shortness of Breath/Wheezing Last Admin: 04/24/19 07:41 Dose: 2.5 mg Documented by: Clonazepam (Klonopin) 1 mg PO BID [facility] Last Admin: 04/23/19 21:06 Dose: 1 mg Documented by: Dextrose (D50w Syringe) 0 gm IV X1 PRN; Protocol PRN Reason: Hypoglycemia Enoxaparin Sodium (Lovenox) 40 mg SC DAILY [facility] Last Admin: 04/23/19 10:34 Dose: 40 mg Documented by: Glucagon () 1 mg IM .X1 PRN PRN Reason: Hypoglycemia Guaifenesin (Robitussin Dm) 10 ml PO Q6H PRN PRN PRN Reason: COUGH Last Admin: 04/23/19 19:28 Dose: 10 ml Documented by: Insulin Human Lispro (Humalog Kwikpen (Bkc)) 0 unit SC [facility]; Protocol Last Admin: 04/24/19 06:34 Dose: Not Given Documented by: Loperamide HCl (Imodium) 2 mg PO Q4H PRN PRN PRN Reason: diarhea Last Admin: 04/23/19 19:28 Dose: 2 mg Documented by: Methylprednisolone (Solu-Medrol) 40 mg IV Q8 [facility] Last Admin: 04/24/19 06:34 Dose: 40 mg Documented by: Ondansetron HCl (Zofran) 4 mg IV Q8H PRN PRN PRN Reason: NAUSEA/VOMITING Potassium Chloride (K-Dur) 40 meq PO BIDCM [facility] Last Admin: 04/23/19 17:12 Dose: 40 meq Documented by: Sodium Chloride () 10 - 40 ml IV UD PRN PRN Reason: SALINE FLUSH Last Admin: 04/24/19 06:34 Dose: 10 ml Documented by: Sodium Chloride () 10 - 40 ml IV UD PRN PRN Reason: SALINE FLUSH Trazodone HCl (Desyrel) 100 mg PO QHS [facility] Last Admin: 04/23/19 22:39 Dose: 100 mg Documented by: STROKE Vital Signs/Narrative: Vital Signs Temp Pulse Resp BP Pulse Ox 04/24/19 07:41 63 18 98 04/24/19 06:22 88 04/24/19 06:06 97.6 F L 69 18 140/82 H 94 Medical Necessity - Tobacco Use Smoking Status: Former smoker Tobacco Use: Cigarettes Assessment/Plan All Active Problems (Last Reviewed 04/21/19 @ 22:53 by Phi Bowen MD) Asthmatic bronchitis with acute exacerbation (Acute) Patient is a 78-year-old lady with history of moderate intermittent asthma who presented with shortness of breath an assessment of acute asthma exacerbation made admitted to regular nursing floor for further management 1. Acute asthma exacerbation ?Suspected to be preceded by probable viral bronchitis. Admitted to regular nursing floor managed with aerosol treatment systemic steroid as well as doxycycline. Patient is scheduled to be seen by a lube attendant at [facility] ?04/23/2019:Patient seen has persistent cough. Her viral assay came back positive for RSV A. The patient still experiencing significant bronchospasm consult was placed to pulmonary medicine. ?04/24/2019 patient was seen in consultation by pulmonary medicine notes and recommendations reviewed. 2. Chronic diarrhea - patient has had extensive work-up with no identifiable source; takes Imodium as needed this was resumed 3. Hypokalemia corrected per protocol 4. Anxiety disorder Patient is on Klonopin continued 5. DVT prophylaxis ~ on enoxaparin Code Visit OBSV E&M: 09646 Initial observation care L2
--- NOTE | 2019-04-24 08:48 | PCM.PN.PUL ---
Patient Problems: Active and Suspected Problems (Last Reviewed 04/21/19 @ 22:53 by Phi Bowen MD) Asthmatic bronchitis with acute exacerbation (Acute) Subjective: Patient was hemodynamically stable overnight. Patient does report significant coughing leading to decreased sleep. Patient did have a walking oximetry showing no significant desaturation. Patient denies any chest pain. Patient has had lower blood sugars, but this has been treated with p.o. intake. - Physical Exam Vitals/I&O's: Vital Signs Temp Pulse Resp BP Pulse Ox 36.4 C L 73 18 140/82 H 98 04/24/19 06:06 04/24/19 07:41 04/24/19 07:41 04/24/19 06:06 04/24/19 07:41 Oxygen Delivery Method Room Air Weight: 55.7 kg Body Mass Index (BMI) 20.1 Intake and Output for Last 24 Hours 04/22/19 04/23/19 04/24/19 23:59 23:59 23:59 Intake Total 1840 / 1840 300 / 300 100 / 100 Balance 1840 / 1840 300 / 300 100 / 100 General: Alert, Oriented x3, Cooperative, No apparent distress, - - Appears young for stated age. HEENT: Atraumatic, PERRLA, EOMI, Normocephalic, - - No scleral icterus or injection noted Oral: Moist Mucosa, No Gingival or Mucosal Lesions/ Ulcerations Neck: Supple, No JVD, No Nodes, Trachea Midline Lungs: No rhonchi, No rales, Diminished, Wheezes - At end exhalation. Exacerbated with forced exhalation, - - Symmetric expansion. No dullness to percussion. Cardiovascular: Regular rate, Regular Rhythm, Normal S1, Normal S2, No murmurs, No rub noted, No Gallop Abdomen: Bowel Sounds Present, Soft, Non Tender, Non-Distended Extremities: No clubbing, No cyanosis, No edema, Capillary Refill Less than 3 Seconds Skin: No rashes, No breakdown Musculoskeletal: No Tenderness to Palpation of Joints or Extremities Lymphatic: No Cervical, Supraclavicular, or Inguinal Adenopathy Neurological: Cranial nerves II-XII grossly intact, Neuro grossly intact, Motor Exam 5/5 strength throughout Psych/Mental Status: Alert and oriented to time, place, person, mood and affect Microbiology Past 72 Hours 04/22/19 04:10 Mucosa - Nasopharyngeal Respiratory Panel (PCR) - Final RSV A Laboratory Results 04/23/19 11:26: POC Glucose 53 L 04/23/19 12:12: POC Glucose 124 H 04/23/19 15:58: POC Glucose 90 04/23/19 22:38: POC Glucose 84 04/24/19 06:32: POC Glucose 98 Current Medications Acetaminophen (Tylenol) 650 mg PO Q6H PRN PRN PRN Reason: Pain Score 1-3/Temp > 100.7 F Last Admin: 04/23/19 17:12 Dose: 650 mg Documented by: Albuterol Sulfate (Ventolin Aerosols) 2.5 mg INHALATION Q2H PRN PRN PRN Reason: Shortness of Breath/Wheezing Last Admin: 04/24/19 07:41 Dose: 2.5 mg Documented by: Clonazepam (Klonopin) 1 mg PO BID [facility] Last Admin: 04/23/19 21:06 Dose: 1 mg Documented by: Dextrose (D50w Syringe) 0 gm IV X1 PRN; Protocol PRN Reason: Hypoglycemia Enoxaparin Sodium (Lovenox) 40 mg SC DAILY [facility] Last Admin: 04/23/19 10:34 Dose: 40 mg Documented by: Glucagon () 1 mg IM .X1 PRN PRN Reason: Hypoglycemia Guaifenesin (Robitussin Dm) 10 ml PO Q6H PRN PRN PRN Reason: COUGH Last Admin: 04/23/19 19:28 Dose: 10 ml Documented by: Insulin Human Lispro (Humalog Kwikpen (Bkc)) 0 unit SC [facility]; Protocol Last Admin: 04/24/19 06:34 Dose: Not Given Documented by: Loperamide HCl (Imodium) 2 mg PO Q4H PRN PRN PRN Reason: diarhea Last Admin: 04/23/19 19:28 Dose: 2 mg Documented by: Methylprednisolone (Solu-Medrol) 40 mg IV Q8 [facility] Last Admin: 04/24/19 06:34 Dose: 40 mg Documented by: Ondansetron HCl (Zofran) 4 mg IV Q8H PRN PRN PRN Reason: NAUSEA/VOMITING Potassium Chloride (K-Dur) 40 meq PO BIDCM [facility] Last Admin: 04/24/19 07:55 Dose: 40 meq Documented by: Sodium Chloride () 10 - 40 ml IV UD PRN PRN Reason: SALINE FLUSH Last Admin: 04/24/19 06:34 Dose: 10 ml Documented by: Sodium Chloride () 10 - 40 ml IV UD PRN PRN Reason: SALINE FLUSH Trazodone HCl (Desyrel) 100 mg PO QHS [facility] Last Admin: 04/23/19 22:39 Dose: 100 mg Documented by: Medical Necessity - Tobacco Use Smoking Status: Former smoker Tobacco Use: Cigarettes Assessment/Plan All Active Problems (Last Reviewed 04/21/19 @ 22:53 by Phi Bowen MD) Asthmatic bronchitis with acute exacerbation (Acute) RECOMMENDATIONS: 1. Okay to transition to prednisone from my perspective 2. Continue steroids to complete a 5-day burst 3. PRN albuterol likely sufficient at discharge 4. Outpatient follow-up with nurse practitioner 2 weeks after discharge 5. Obtain complete PFT 6. Okay to discharge from a pulmonary perspective IMPRESSIONS: 1. Probable acute asthma exacerbation secondary to RSV Patient is highly anxious about her overall condition. Patient is not desaturating with ambulation, so can likely be transition to prednisone therapy to complete a 5-day burst. Stressed to the patient the importance of compliance with prednisone to limit bronchial airway swelling. Patient does need an outpatient complete PFT for verification of asthma diagnosis given smoking history, but would likely benefit from maintenance inhaler of some sort depending on results of complete PFT. Close follow-up with the patient in 2 weeks with nurse practitioner in our office can be arranged at discharge. 2. Anxiety/advanced age Complicates care, management, recovery and prognosis. Stressed to the patient the importance of recovery from the acute exacerbation. Code Visit Inpatient E&M: 15691 Subs Hosp L2
[2019-04-24] MEDS: clonazePAM 1 MG Tablet PO ×2 (10:49→19:27)
[2019-04-24] MEDS: Enoxaparin 40 MG/0.4 ML Syringe SC (10:50)
[2019-04-24 12:05] LABS: Bedside Glucose 73 mg/dL (70-110)
[2019-04-24 18:50] LABS: Bedside Glucose 105 mg/dL (70-110)
[2019-04-24] MEDS: guaiFENesin Dm 10 ML UDC PO (19:27)
[2019-04-24] MEDS: traZODone 100 MG Tablet PO (21:42)
[2019-04-25] VITALS: PULSE 94
[2019-04-25 03:50] VITALS: BP 126/76; PULSE 69; RESP 16; TEMP 36.6; O2SAT 96
[2019-04-25 04:00] VITALS: PULSE 94
[2019-04-25] MEDS: 0.9% Saline Lock 10 ML Syringe IV (06:45)
[2019-04-25 06:50] LABS: Bedside Glucose 109 mg/dL (70-110)
[2019-04-25 07:09] VITALS: PULSE 98
[2019-04-25 07:36] VITALS: O2SAT 97
--- NOTE | 2019-04-25 08:16 | PCM.DC.SUM ---
Discharge Date and Diagnosis - Problem List Patient Problems: Active and Suspected Problems (Last Reviewed 04/21/19 @ 22:53 by Phi Bowen MD) Asthmatic bronchitis with acute exacerbation (Acute) Date of Admission: 04/21/19 Date of Discharge: 04/25/19 - Primary Discharge Diagnosis Active and Suspected Problems (Last Reviewed 04/21/19 @ 22:53 by Phi Bowen MD) Asthmatic bronchitis with acute exacerbation (Acute) - Secondary Discharge Diagnosis Chronic Problems (Last Reviewed 04/21/19 @ 22:53 by Phi Bowen MD) Anxiety (Chronic) Hospital Course and Treatment Imaging Results: Clinical Impression(s) from Imaging Studies Chest X-Ray 04/21/19 18:50 IMPRESSION: Normal x-ray examination of the chest. Electronically Signed: Edith aJde MD at 20:17 EST Tel , Service support , Summary of Care Provided: Patient is a 78-year-old lady with history of moderate intermittent asthma who presented with shortness of breath an assessment of acute asthma exacerbation made admitted to regular nursing floor for further management 1. Acute asthma exacerbation ?Suspected to be preceded by probable viral bronchitis. Admitted to regular nursing floor managed with aerosol treatment systemic steroid as well as doxycycline. Her viral assay came back positive for RSV A. With the patient still experiencing significant bronchospasm consult was placed to pulmonary medicine. Patient was seen by Dr. Coy his recommendations reviewed. Patient was discharged home once condition improved with 5 days of prednisone 40 mg albuterol as needed as well as cough syrup. Was instructed to follow-up with pulmonology as scheduled and with her PCP. 2. Chronic diarrhea - patient has had extensive work-up with no identifiable source; takes Imodium as needed this was resumed 3. Hypokalemia corrected per protocol 4. Anxiety disorder Patient is on Klonopin continued 5. DVT prophylaxis ~ on enoxaparin Patient Problems: Active and Suspected Problems (Last Reviewed 04/21/19 @ 22:53 by Phi Bowen MD) Asthmatic bronchitis with acute exacerbation (Acute) Objective: GENERAL: cooperative HEENT: Atraumatic; EYES; Anicteric, Normal Conjunctiva NECK; supple, normal thyroid, RESPIRATORY: Diminished to auscultation CARDIOVASCULAR: Regular S1 S2, GI: soft, normoactive bowel sounds, : No Renal angle tenderness; EXTREMITIES: No edema, no clubbing, MUSCULOSKELETAL: no muscle waisting NEURO: Awake; no lateralizing signs. SKIN: No Rash PSYCH; Flat affect - Physical Exam Vitals/I&O's: Vital Signs Temp Pulse Resp BP Pulse Ox 97.8 F 98 16 126/76 H 96 04/25/19 03:50 04/25/19 07:09 04/25/19 03:50 04/25/19 03:50 04/25/19 03:50 Oxygen Delivery Method Room Air Weight: 55.7 kg Body Mass Index (BMI) 20.1 Intake and Output for Last 24 Hours 04/23/19 04/24/19 04/25/19 23:59 23:59 23:59 Intake Total 300 / 300 1300 / 1300 Balance 300 / 300 1300 / 1300 Microbiology Past 72 Hours 04/22/19 04:10 Mucosa - Nasopharyngeal Respiratory Panel (PCR) - Final RSV A Laboratory Results 04/24/19 11:54: POC Glucose 73 04/24/19 16:56: POC Glucose 105 04/25/19 06:43: POC Glucose 109 Current Medications Acetaminophen (Tylenol) 650 mg PO Q6H PRN PRN PRN Reason: Pain Score 1-3/Temp > 100.7 F Last Admin: 04/23/19 17:12 Dose: 650 mg Documented by: Albuterol Sulfate (Ventolin Aerosols) 2.5 mg INHALATION Q2H PRN PRN PRN Reason: Shortness of Breath/Wheezing Last Admin: 04/24/19 19:38 Dose: 2.5 mg Documented by: Clonazepam (Klonopin) 1 mg PO BID [facility] Last Admin: 04/24/19 19:27 Dose: 1 mg Documented by: Dextrose (D50w Syringe) 0 gm IV X1 PRN; Protocol PRN Reason: Hypoglycemia Enoxaparin Sodium (Lovenox) 40 mg SC DAILY [facility] Last Admin: 04/24/19 10:50 Dose: 40 mg Documented by: Glucagon () 1 mg IM .X1 PRN PRN Reason: Hypoglycemia Guaifenesin (Robitussin Dm) 10 ml PO Q6H PRN PRN PRN Reason: COUGH Last Admin: 04/24/19 19:27 Dose: 10 ml Documented by: Insulin Human Lispro (Humalog Kwsharpen (Bkc)) 0 unit SC [facility]; Protocol Last Admin: 04/25/19 06:45 Dose: Not Given Documented by: Loperamide HCl (Imodium) 2 mg PO Q4H PRN PRN PRN Reason: diarhea Last Admin: 04/23/19 19:28 Dose: 2 mg Documented by: Methylprednisolone (Solu-Medrol) 40 mg IV Q8 [facility] Last Admin: 04/25/19 06:45 Dose: 40 mg Documented by: Ondansetron HCl (Zofran) 4 mg IV Q8H PRN PRN PRN Reason: NAUSEA/VOMITING [facility] Last Admin: 04/24/19 17:01 Dose: 40 meq Documented by: Sodium Chloride () 10 - 40 ml IV UD PRN PRN Reason: SALINE FLUSH Last Admin: 04/25/19 06:45 Dose: 10 ml Documented by: Sodium Chloride () 10 - 40 ml IV UD PRN PRN Reason: SALINE FLUSH Trazodone HCl (Desyrel) 100 mg PO QHS [facility] Last Admin: 04/24/19 21:42 Dose: 100 mg Documented by: Discharge Diet: No Restrictions Discharge Activity: Return to Normal Activity, May not drive while taking narcotic pain medications. Home Medications: Medications to take at Discharge Clonazepam 1 mg PO BID 04/21/19 Trazodone HCl 100 mg PO QHS 04/21/19 Albuterol Inhaler [Ventolin Hfa] 2 puff INHALATION Q4H PRN PRN #1 inhaler 04/25/19 Codeine Phosphate/Guaifenesin [Codeine-Guaifen 10-100 mg/5 ml] 5 ml PO Q6H PRN PRN 6 Days #120 ml 04/25/19 Prednisone 20 mg PO BID #10 tab 04/25/19 Following Prescrptions Were Given to Patient: Codeine Phosphate/Guaifenesin [Codeine-Guaifen 10-100 mg/5 ml] 5 ml PO Q6H PRN PRN 6 Days #120 ml PRN Reason: Cough/Congestion Transmission Status: Sent to [facility] Prednisone 20 mg PO BID #10 tab Transmission Status: Sent to [facility] Albuterol Inhaler [Ventolin Hfa] 2 puff INHALATION Q4H PRN PRN #1 inhaler PRN Reason: Sob &/Or Wheezing Transmission Status: Sent to [facility] Primary Care Physician: Qina Colindres MD [Primary Care Provider] - Please follow up with your Primary Care Physician in: in 3-5 days Please Follow Up With: Horacio Coy MD When: as scheduled Disposition: Home Minutes spent on discharge:: 35 Patient Condition:: Stable Medical Necessity - Tobacco Use Smoking Status: Former smoker Tobacco Use: Cigarettes Meaningful Use Info Meaningful Use Diagnoses (Choose all that apply): None applicable Code Visit Inpatient E&M: 43735 Disch Hosp
--- NOTE | 2019-04-25 08:20 | DCINST_ITS ---
- Discharge Diagnoses Current Active Problems: Current Active and Chronic Problems (Last Reviewed 04/21/19 @ 22:53 by Phi Bowen MD) Asthmatic bronchitis with acute exacerbation (Acute) Anxiety (Chronic) You will use the following diet at home:: No restrictions Your food should be the consistency of: Regular Discharge Activity: Return to Normal Activity, May not drive while taking narcotic pain medications. Allergies/Adverse Reactions: Allergies Penicillins Allergy (Verified 04/21/19 18:01) Vomiting MYOCIN Allergy (Uncoded 04/21/19 23:08) Nausea PT STATES SHE IS ALLERGIC TO MOST MYOCIN DRUGS. Medications to take at Discharge Clonazepam 1 mg PO BID 04/21/19 Trazodone HCl 100 mg PO QHS 04/21/19 Albuterol Inhaler [Ventolin Hfa] 2 puff INHALATION Q4H PRN PRN #1 inhaler 04/25/19 Codeine Phosphate/Guaifenesin [Codeine-Guaifen 10-100 mg/5 ml] 5 ml PO Q6H PRN PRN 6 Days #120 ml 04/25/19 Prednisone 20 mg PO BID #10 tab 04/25/19 The following prescriptions were given: Codeine Phosphate/Guaifenesin [Codeine-Guaifen 10-100 mg/5 ml] 5 ml PO Q6H PRN PRN 6 Days #120 ml PRN Reason: Cough/Congestion Transmission Status: Sent to [facility] Prednisone 20 mg PO BID #10 tab Transmission Status: Sent to [facility] Albuterol Inhaler [Ventolin Hfa] 2 puff INHALATION Q4H PRN PRN #1 inhaler PRN Reason: Sob &/Or Wheezing Transmission Status: Sent to [facility] Primary Care Physician: Qian Colindres MD [Primary Care Provider] - Please follow up with your Primary Care Physician in: in 3-5 days Test Results: Test results from this visit will be discussed in further detail at your follow- up appointment, if applicable. Please Follow Up With: Horacio Coy MD When: as scheduled Proposed Discharge Date: 04/25/19
[2019-04-25] MEDS: clonazePAM 1 MG Tablet PO (09:31)
[2019-04-25 09:45] VITALS: BP 126/76; PULSE 68; RESP 18; TEMP 36.4; O2SAT 98
--- NOTE | 2019-04-25 09:53 | PCM.PN.PUL ---
Patient Problems: Active and Suspected Problems (Last Reviewed 04/21/19 @ 22:53 by Phi Bowen MD) Asthmatic bronchitis with acute exacerbation (Acute) Subjective: Patient did well overnight. No acute issues were reported. Patient reportedly has been walking around the room without difficulty. Continues to have a nonproductive cough. Patient feels more safe to go home. - Physical Exam Vitals/I&O's: Vital Signs Temp Pulse Resp BP Pulse Ox 36.6 C 98 16 126/76 H 96 04/25/19 03:50 04/25/19 07:09 04/25/19 03:50 04/25/19 03:50 04/25/19 03:50 Oxygen Delivery Method Room Air Weight: 55.7 kg Body Mass Index (BMI) 20.1 Intake and Output for Last 24 Hours 04/23/19 04/24/19 04/25/19 23:59 23:59 23:59 Intake Total 300 / 300 1300 / 1300 Balance 300 / 300 1300 / 1300 General: Alert, Oriented x3, Cooperative, No apparent distress, Well developed, Well nourished, - - No conversational dyspnea. HEENT: Atraumatic, PERRLA, EOMI, Normocephalic, - - No scleral icterus or injection Oral: Moist Mucosa, No Gingival or Mucosal Lesions/ Ulcerations Neck: Supple, No JVD, No Nodes, Trachea Midline Lungs: No rhonchi, No rales, Diminished - Improved from yesterday, Wheezes - At end exhalation Cardiovascular: Regular rate, Regular Rhythm, Normal S1, Normal S2, No murmurs, No rub noted, No Gallop Abdomen: Bowel Sounds Present, Soft, Non Tender, Non-Distended Extremities: No clubbing, No cyanosis, No edema Skin: No rashes, No breakdown Musculoskeletal: No Tenderness to Palpation of Joints or Extremities Lymphatic: No Cervical, Supraclavicular, or Inguinal Adenopathy Neurological: Cranial nerves II-XII grossly intact, Neuro grossly intact, Motor Exam 5/5 strength throughout Psych/Mental Status: Alert and oriented to time, place, person, mood and affect Microbiology Past 72 Hours 04/22/19 04:10 Mucosa - Nasopharyngeal Respiratory Panel (PCR) - Final RSV A Laboratory Results 04/24/19 11:54: POC Glucose 73 04/24/19 16:56: POC Glucose 105 04/25/19 06:43: POC Glucose 109 Current Medications Acetaminophen (Tylenol) 650 mg PO Q6H PRN PRN PRN Reason: Pain Score 1-3/Temp > 100.7 F Last Admin: 04/23/19 17:12 Dose: 650 mg Documented by: Albuterol Sulfate (Ventolin Aerosols) 2.5 mg INHALATION Q2H PRN PRN PRN Reason: Shortness of Breath/Wheezing Last Admin: 04/24/19 19:38 Dose: 2.5 mg Documented by: Clonazepam (Klonopin) 1 mg PO BID [facility] Last Admin: 04/25/19 09:31 Dose: 1 mg Documented by: Dextrose (D50w Syringe) 0 gm IV X1 PRN; Protocol PRN Reason: Hypoglycemia Enoxaparin Sodium (Lovenox) 40 mg SC DAILY [facility] Last Admin: 04/24/19 10:50 Dose: 40 mg Documented by: Glucagon () 1 mg IM .X1 PRN PRN Reason: Hypoglycemia Guaifenesin (Robitussin Dm) 10 ml PO Q6H PRN PRN PRN Reason: COUGH Last Admin: 04/24/19 19:27 Dose: 10 ml Documented by: Insulin Human Lispro (Humalog Kwikpen (Bkc)) 0 unit SC [facility]; Protocol Last Admin: 04/25/19 06:45 Dose: Not Given Documented by: Loperamide HCl (Imodium) 2 mg PO Q4H PRN PRN PRN Reason: diarhea Last Admin: 04/23/19 19:28 Dose: 2 mg Documented by: Methylprednisolone (Solu-Medrol) 40 mg IV Q8 [facility] Last Admin: 04/25/19 06:45 Dose: 40 mg Documented by: Ondansetron HCl (Zofran) 4 mg IV Q8H PRN PRN PRN Reason: NAUSEA/VOMITING Potassium Chloride (K-Dur) 40 meq PO BIDCM [facility] Last Admin: 04/25/19 09:31 Dose: 40 meq Documented by: Sodium Chloride () 10 - 40 ml IV UD PRN PRN Reason: SALINE FLUSH Last Admin: 04/25/19 06:45 Dose: 10 ml Documented by: Sodium Chloride () 10 - 40 ml IV UD PRN PRN Reason: SALINE FLUSH Trazodone HCl (Desyrel) 100 mg PO QHS [facility] Last Admin: 12/03/19 21:42 Dose: 100 mg Documented by: Medical Necessity - Tobacco Use Smoking Status: Former smoker Tobacco Use: Cigarettes Assessment/Plan All Active Problems (Last Reviewed 04/21/19 @ 22:53 by Phi Bowen MD) Asthmatic bronchitis with acute exacerbation (Acute) RECOMMENDATIONS: 1. Okay to transition to prednisone to complete a 5-day burst 2. Patient should be given an albuterol inhaler at discharge 3. Hold on controller medication until further information can be gathered 4. Outpatient follow-up with nurse practitioner 2 weeks after discharge 5. Obtain complete PFT 6. Okay to discharge from a pulmonary perspective IMPRESSIONS: 1. Probable acute asthma exacerbation secondary to RSV Patient is highly anxious about her overall condition, but appears more confident today. Patient is not desaturating with ambulation, so can likely be transition to prednisone therapy to complete a 5-day burst. Stressed to the patient the importance of compliance with prednisone to limit bronchial airway swelling. Patient does need an outpatient complete PFT for verification of asthma diagnosis given smoking history, but would likely benefit from maintenance inhaler of some sort depending on results of complete PFT. Close follow-up with the patient in 2 weeks with nurse practitioner in our office can be arranged at discharge. 2. Anxiety/advanced age Complicates care, management, recovery and prognosis. Stressed to the patient the importance of recovery from the acute exacerbation. Code Visit Inpatient E&M: 11302 Subs Hosp L2
== END 2019-04-25 12:05 | disposition home or self-care (01) | DRG 203 ==
LOC: ED 18:53 → MS3 04-22 00:17
PROVIDERS: Admitting Provider Hospitalist; Emergency Provider Emergency Medicine; Family Provider Internal Medicine; PCP Internal Medicine; Referring Provider Hospitalist; Visit Provider Internal Medicine
DX: J45.41 Moderate persistent asthma with (acute) exacerbation (principal); B97.4 Respiratory syncytial virus as the cause of diseases classified elsewhere; J20.5 Acute bronchitis due to respiratory syncytial virus; F41.9 Anxiety disorder, unspecified; G47.00 Insomnia, unspecified; K52.9 Noninfective gastroenteritis and colitis, unspecified; E87.6 Hypokalemia; Z79.899 Other long term (current) drug therapy; Z87.891 Personal history of nicotine dependence
CPT/HCPCS: 36415; 71046; 80048; 82962; 83036; 85025; 87633; 94640; 94667; 94668; 99251; 99285; A4216; G0463

== ENCOUNTER → 2019-06-05 13:10 | Outpatient (CLI) | payer MEDICARE, OTHER, SELFPAY ==
[2019-05-03 14:52] VITALS: BMI 20.1
--- NOTE | 2019-06-06 08:15 | PFT ---
INTRODUCTION: The patient is a 78-year-old female that presents for pulmonary function studies secondary to a diagnosis of asthma. Respiratory therapy reports good patient effort. Bronchodilators were used during testing. INTERPRETATION: Forced expiration spirometry demonstrates no evidence of a large airways obstructive ventilatory defect. There was no significant response to aerosolized bronchodilators, based upon strict ATS criteria. Spirograms are of good quality and plateau normally. Body plethysmography was performed and reveals lung volumes to be within normal limits. Diffusing capacity by single breath CO is also within normal limits at 83% of predicted. IMPRESSION: Normal pulmonary function studies.
== END ==
PROVIDERS: Family Provider Internal Medicine; PCP Internal Medicine; Referring Provider Nurse Practitioner Acute Care; Visit Provider Nurse Practitioner Acute Care
DX: J45.901 Unspecified asthma with (acute) exacerbation (principal)
CPT/HCPCS: 94060; 94726; 94729

== ENCOUNTER 2020-06-12 10:00 | Outpatient (RCR) | payer MEDICARE, OTHER, SELFPAY ==
[2019-07-24 14:41] VITALS: BMI 20.1
== END 2020-06-12 23:59 ==
LOC: IMMUN 10:00
PROVIDERS: PCP Internal Medicine; Visit Provider Family Medicine
DX: Z23 Encounter for immunization (principal)
CPT/HCPCS: 0011A; 0012A; 91301

== ENCOUNTER 2020-07-22 07:12 | Day surgery (SDC) | payer MEDICARE, OTHER, SELFPAY ==
[2020-07-16 15:28] VITALS: BMI 19.1
[2020-07-22] VITALS (7 sets, daily range): BP systolic 96–128; BP diastolic 63–103; PULSE 65–77; RESP 16; TEMP 36.1–36.6; O2SAT 98–100; BMI 19.3
--- NOTE | 2020-07-22 | GASB_PTH ---
PATIENT: TIFFANI MA LOC: EN U#:[id number] AGE/SX: 79/F ROOM: RE07/22/[address]: Dr. Domingo Glez MD : 1940 BED: DIS: 07/22/2020 SPEC #: [id number] RECD: 07/22/20 11:31 STATUS: [facility] [place] #: [id number] MARI AGUADALUPE: 07/22/20 00:[address]: Domingo Glez DEPT: SURGICAL PATHOLOGY RECD BY: Rajendra Bustamante ENTERED: 07/22/20 13:06 SP TYPE: Gastric Bx OTHR DR: Dr. Qian Colindres MD Tissues: A - Gastric mucous membrane B - Stomach, NOS C - Esophageal mucous membrane D - Duodenum, NOS E - Esophageal mucous membrane F - COLON BIOPSY Procedures: Surgery Specimen Level IV HEADER OPERATION: [place]oscopy, [place] PRE-OP DIAGNOSIS: GE reflux, abdominal pain TISSUE SUBMITTED: A - Antral biopsy for H. pylori and path, B - Greater curvature gastric polyp, C - Distal esophageal biopsy, D - Duodenum biopsy, E - Mid esophagus biopsy, F - Random colonic biopsies MICROSCOPIC DIAGNOSIS A. Antral biopsy: Mild to moderate gastritis. See microscopic description and comment. B. Greater curvature polyp, biopsy: Fundic gland polyp. C. Distal esophageal biopsy: Fragments of gastroesophageal mucosa with mild chronic inflammation. See comment. D. Duodenum biopsy: A fragment of small intestinal mucosa, no pathologic diagnosis. E. Mid esophagus, biopsy: A fragment of squamous epithelium, no pathologic diagnosis. F. Colon, random biopsy: Fragments of colonic mucosa, no pathologic diagnosis. SJ:amparo 07/23/2020 COMMENT A. The results of immunohistochemistry for Helicobacter pylori will be reported separately ([id number]). C. Scant detached fragments of small intestinal mucosa are noted and may represent contaminant from the duodenal biopsy. Correlation with clinical findings is necessary to rule out Nolan's esophagus. MICROSCOPIC DESCRIPTION Slides are reviewed. A. The specimen shows fragments of gastric mucosa with chronic inflammatory cell infiltrates in the lamina propria consisting of lymphocytes and plasma cells, consistent with mild to moderate chronic gastritis. GROSS DESCRIPTION A - Received in fixative is one container labeled with the patient's name and designated antral biopsy. The specimen consists of one irregular fragment of light wan soft tissue that measures 0.3 x 0.3 x 0.1 cm. The specimen is totally submitted in one cassette. B - Received in fixative is one container labeled with the patient's name and designated greater curvature gastric polyp. The specimen consists of one irregular fragment of light wan soft tissue that measures 0.3 x 0.2 x 0.1 cm. The specimen is totally submitted in one cassette. C - Received in fixative is one container labeled with the patient's name and designated distal esophageal biopsy. The specimen consists of two irregular fragments of light wan soft tissue that in aggregate measure 0.8 x 0.4 x 0.1 cm. The specimen is totally submitted in one cassette. D - Received in fixative is one container labeled with the patient's name and designated duodenum biopsy. The specimen consists of one irregular fragment of light wan soft tissue that measures 0.3 x 0.3 x 0.1 cm. The specimen is totally submitted in one cassette. E - Received in fixative is one container labeled with the patient's name and designated mid esophagus biopsy. The specimen consists of one irregular fragment of light wan soft tissue that measures 0.5 x 0.3 x 0.1 cm. The specimen is totally submitted in one cassette. F - Received in fixative is one container labeled with the patient's name and designated random colonic biopsy. The specimen consists of multiple irregular fragments of light wan soft tissue that in aggregate measure 1.2 x 0.7 x 0.1 cm. The specimen is totally submitted in one cassette. / SJ:rg 07/22/20 TC:3 CPT: 01664 x6
[2020-07-22 07:46] LABS: Bedside Glucose 92 mg/dL (70-110)
--- NOTE | 2020-07-22 08:12 | PCM.HP.BLA ---
Problem List (1) Gastroesophageal reflux disease Status: Acute Qualifiers: (2) Abdominal pain Status: Acute Qualifiers: History and Physical Date of Admission: 07/22/[address] Domingo Glez MD on 07/17/20 at 0627 Addendum entered and electronically signed by Domingo Glez MD 07/17/20 06:27: Intake Chief Complaint: generalized abd pain/ constipation Allergies Penicillins Allergy (Verified 07/24/19 14:39) Vomiting MYOCIN Allergy (Uncoded 05/03/19 14:32) Nausea Medications Clonazepam 1 mg PO BID 04/21/19 [History Confirmed 07/16/20] Trazodone HCl 100 mg PO QHS 04/21/19 [History Confirmed 07/16/20] Albuterol Inhaler [Ventolin Hfa] 2 puff INHALATION Q4H PRN PRN #1 inhaler 04/25/19 [Rx Confirmed 07/16/20] valacyclovir 1 gram tablet PO #5 tab 05/03/19 [History Confirmed 07/16/20] estradiol 1 mg tablet mg PO 07/24/19 [History Confirmed 07/16/20] cholecalciferol (vitamin D3) 250 mcg (10,000 unit) capsule 250 mcg PO DAILY 07/16/20 [History Confirmed 07/16/20] multivitamin 1 tab PO DAILY 07/16/20 [History Confirmed 07/16/20] ondansetron HCl 4 mg tablet 4 mg PO Q12H PRN tab 07/16/20 [History Confirmed 07/16/20] pantoprazole 40 mg tablet,delayed release 40 mg PO BID tab 07/16/20 [History Confirmed 07/16/20] Assessment & Plan Problems 1. Generalized abdominal pain R10.84 2. Gastroesophageal reflux disease, unspecified whether esophagitis present K21.9 Plan - Dr. Domingo Glez MD 79-year-old female where she previously had severe GERD symptoms and diarrhea now it is GERD symptoms and severe constipation.As I did a year ago I recommend to her combined esophagogastroduodenoscopy with biopsy and colonoscopy with possible biopsy or polypectomy as indicated. This would be performed with monitored anesthesia care. Because now her symptoms are severe constipation I would recommend a 2-day bowel prep. I would recommend monitored anesthesia care. She has had an opportunity to ask and have questions answered. We will try to schedule and proceed as noted. I very much appreciate the ongoing opportunity of assisting with her surgical care. Copy: Jessica Vasquez CNP and Dr. Qian Glez M.D., .A.C.S. 07/17/20 0627 <Electronically signed by Domingo Glez MD> Date Domingo Glez MD cc: AIDA Vasquez; Dr. 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 Is patient in pain?: Yes (generalized abdomen ) Pain scale (1-10): 8 Allergies Penicillins Allergy (Verified 07/24/19 14:39) Vomiting MYOCIN Allergy (Uncoded 05/03/19 14:32) Nausea Medications Clonazepam 1 mg PO BID 04/21/19 [History Confirmed 07/16/20] Trazodone HCl 100 mg PO QHS 04/21/19 [History Confirmed 07/16/20] Albuterol Inhaler [Ventolin Hfa] 2 puff INHALATION Q4H PRN PRN #1 inhaler 04/25/19 [Rx Confirmed 07/16/20] valacyclovir 1 gram tablet PO #5 tab 05/03/19 [History Confirmed 07/16/20] estradiol 1 mg tablet mg PO 07/24/19 [History Confirmed 07/16/20] cholecalciferol (vitamin D3) 250 mcg (10,000 unit) capsule 250 mcg PO DAILY 07/16/20 [History Confirmed 07/16/20] multivitamin 1 tab PO DAILY 07/16/20 [History Confirmed 07/16/20] ondansetron HCl 4 mg tablet 4 mg PO Q12H PRN tab 07/16/20 [History Confirmed 07/16/20] pantoprazole 40 mg tablet,delayed release 40 mg PO BID tab 07/16/20 [History Confirmed 07/16/20] Is last menstrual period known: No Post menopausal: Yes Patient : No PFSH Medical History (Updated 07/16/20 @ 15:24 by Lindy Mai) Abdominal pain (Acute) Anxiety (Acute) Asthma (Acute) GERD (gastroesophageal reflux disease) (Acute) Hemorrhoids (Acute) History of bronchitis (Acute) Chronic constipation (Chronic) Surgical History (Updated 07/16/20 @ 15:24 by Lindy Mai) History of appendectomy (Acute) History of breast implant (Acute) History of breast implant removal (Acute) History of colonoscopy (Acute ~2010) History of esophagogastroduodenoscopy (EGD) (Acute ~2013) History of hysterectomy with oophorectomy (Acute) History of appendectomy (Resolved) History of cholecystectomy (Resolved) History of tonsillectomy and adenoidectomy (Resolved) Family History Father , 57 Heart disease Myocardial infarction Mother Alzheimer disease Social History (Updated 07/16/20 @ 15:[address] Domingo Glez MD) Smoking Status: Former smoker HPI HPI HPI: TIFFANI MA, is a 79 F who presents to the office today for Surgical consultation regarding abdominal pain and change of bowel habits now constipation. The patient is referred by Jessica Vasquez CNP and a written copy of my surgical consult and recommendations will be returned to Liliam well as forwarded on to Dr. Qian Colindres. The patient presented to Jessica Vasquez with complaint of new onset of constipation. Chronic ongoing problems with abdominal pain. Her previous colonoscopy was May [address] Tyson Elliott. The patient is presenting for an updated examination. It is also of note that the patient states that she is taking a proton pump a bit or twice a day but there is some concern that if she were doing this that her prescription would have already . The patient's current referral is because she did not proceed with the previous upper and lower scope as anticipated. She is gone 1 additional 4-year. She was taking significant amounts of Imodium and then developed constipation. She states now for the past 6 months she has had been severely constipated. She continues to have GERD type symptoms. She claims that she is lost 4 to 5 pounds in weight. There is been no family history of colon cancer. She states that she develops abdominal pain that is very severe.She also has ongoing GERD symptoms. She claims as noted to be taking pantoprazole twice daily. She states that her symptoms are improved but not resolved. She claims that the pain is very severe in the low mid abdomen.As noted in her history she has had problems with chronic abdominal pain. It has been difficult to determine the precise etiology. My previous notes from July 24, 2019 reflect the following HPI: TIFFANI MA, is a 78 F who presents to the office today for surgical consultation today regarding abdominal pain diarrhea. The patient is referred by Jessica Vasquez CNP and a written complement surgical consult will return to her. 78-year-old female who appears very anxious and agitated today presents in referral. She states that she just cannot live any longer. She has incredible amounts of abdominal pain and and frequent diarrhea. She takes Imodium 3 times daily [id number]. There is evidence had a previous screening colonoscopy performed by Dr. Tyson Elliott May 26, 2010 was not remarkable. Random biopsies were not obtained at that time. The patient has had a much more recent esophagogastroduodenoscopy on May 11, 2018 for reported heartburn. Normal esophagus and stomach and duodenum identified with a few gastric polyps. Biopsies did not show Helicobacter pylori noted to demonstrate active gastritis. The patient is complaining of severe generalized epigastric abdominal pain. She feels like she cannot go on. There is evidence that the patient has actually had previous multiple upper endoscopies. HPI HPI HPI: TIFFANI MA, is a 79 F who presents to the office today for ROS General General: Yes weight change and fatigue; no appetite, colon cancer, breast cancer or weakness HEENT HEENT: No difficulty swallowing, eye injury, eye surgery, swollen glands or hoarseness Endo Endocrine: No thyroid disease, diabetes mellitus, thyroid cancer, Hair loss, heat intolerance or cold intolerance Musc Musculoskeletal: No back problems, arthritis, rheumatoid arthritis, gout or joint pain Cardio Cardiovascular: No murmur, pacemaker, heart disease, atrial fibrillation, high blood pressure, heart attack, heart stent, palpitations, shortness of breat with exertion or chest pain Psych Psychiatric: Yes anxiety; no depression or hearing voices Resp Respiratory: No shortness of breath, No sleep apnea, No cough, No COPD, Yes asthma, No emphysema, No wheezing Gastro Gastrointestinal: Yes abdominal pain, Yes nausea or vomiting, No diarrhea, Yes constipation, No blood in stool, Yes acid reflux, Yes hemorrhoids, No ulcers, No gallbladder problem, No black,tarry stools Jay Hematologic: No blood thinners, No blood disorders, No bleeding, No anemia, No blood clots Neuro Neurologic: No weakness Exam Const General: comfortable, no acute distress Nutritional Appearance: underweight Orientation: alert HENMT Head: normal to inspection Eyes General: appearance normal, both eyes and all related structures Resp Effort & Inspection: normal respiratory effort Auscultation: clear to auscultation bilaterally Cardio Rate: regular rate Heart Sounds: no murmurs GI Other: Patient holds her abdomen somewhat tense, I do not detect any hepatosplenomegaly, bowel sounds are present and normal Musc Cervical Spine: normal cervical lordosis Neuro Cognition: normal cognition Psych Affect: normal affect Assessment & Plan Plan 79-year-old female where she previously had severe GERD symptoms and diarrhea now it is GERD symptoms and severe constipation.As I did a year ago I recommend to her combined esophagogastroduodenoscopy with biopsy and colonoscopy with possible biopsy or polypectomy as indicated. This would be performed with monitored anesthesia care. Because now her symptoms are severe constipation I would recommend a 2-day bowel prep. I would recommend monitored anesthesia care. She has had an opportunity to ask and have questions answered. We will try to schedule and proceed as noted. I very much appreciate the ongoing opportunity of assisting with her surgical care. Copy: Jessica Vasquez CNP and Dr. Qian Glez M.D., F.A.C.S. I have re-examined the patient. There are no clinical changes since date of exam. Procedure Criteria Procedure Type: Elective COVID Risk Discussion: The surgeon/proceduralist and patient have discussed in detail the risk of exposure to and/or potential harm posed by the COVID-19 virus with having a surgery/procedure at this time versus the risk of delaying the surgery/procedure. It is not possible to know either the risk of delaying the surgery or procedure or chance of getting an infection with perfect accuracy, but a joint decision was made between the patient and the surgeon/proceduralist to proceed at this time with the scheduled surgery/procedure as indicated on the consent form.
[2020-07-22] MEDS: Lactated Ringers 1,000 ML 100 ML IV ×2 (08:16→11:00)
--- NOTE | 2020-07-22 09:45 | IMM_PTH ---
PATIENT: TIFFANI MA LOC: EN U#:[id number] AGE/SX: 79/F ROOM: RE07/22/[address]: Dr. Domingo Glez MD : 1940 BED: DIS: 07/22/2020 SPEC #: [id number] RECD: 07/22/20 14:26 STATUS: UMU REQ #: [id number] MARIA GUADALUPE: 07/22/20 09:[address]: Domingo Glez DEPT: IMMUNOHISTOCHEMISTRY RECD BY: Crystal Conrad ENTERED: 07/22/20 14:26 SP TYPE: IMMUNO OTHR DR: Dr. Qian Colindres MD Tissues: A - Stomach, NOS Procedures: H Pylori (initial) PHYSICIAN & INSTITUTION [place] [id number] SPECIMEN INFORMATION: Tissue Source: A - Antral biopsy Clinical Info: GE reflux, abdominal pain Specimen Number: [id number] CPT code: 11322 METHODOLOGY: Deparaffinized sections of prefer/formalin-fixed tissue or PAP/DQ stained slides are incubated with monoclonal/polyclonal antibodies/oligonucleotide probes. Localization is made via biotin free immunoperoxidase method. Appropriate controls are performed and reacted as expected. Results on target cell population are indicated in the following table: RESULTS: ANTIBODY / CLONE RESULT Block A H Pylori (polyclonal) negative These tests were developed and their performance characteristics determined by [facility]. They may not have been cleared or approved by the [place].S. Food and Drug Administration. The FDA has determined that such clearance or approval is not necessary. INTERPRETATION: A. Antral biopsy: Negative for Helicobacter pylori organisms. SJ:amparo 07/23/2020
--- NOTE | 2020-07-22 11:23 | OP.CCLET_ITS ---
07/22/2020 Qian Colindres [address] [place] [address] Re : Upper GI endoscopy procedure for Chelsy Tran Dear Dr. Colindres This procedure was performed on Wednesday, July 22, 2020. My impressions and recommendations are as follows: Impressions : - Normal middle third of esophagus. Biopsied. - Z-line regular, 40 cm from the incisors. Biopsied. Small hiatal hernia - Multiple gastric polyps. Resected and retrieved. - Erythematous mucosa in the antrum. Biopsied. - Normal examined duodenum. Biopsied. Recommendations : - Discharge patient to home. - Resume previous diet. - Continue present medications. - Telephone my office for pathology results in 1 week. My findings are described in the full procedure note, which is enclosed. If I can be of further assistance, please feel free to contact me at Doctor phone number(s): Work: . Sincerely, Domingo Glez MD 07/22/2020 11:23:24 AM This report has been signed electronically.
--- NOTE | 2020-07-22 11:23 | OP.EGD_ITS ---
Patient Name: Chelsy Tran Procedure Date: 07/22/2020 10:22 AM Date of : 1940 Age: 79 Procedure: Upper GI endoscopy Indications: Epigastric abdominal pain Providers: Domingo Glez MD Medicines: See the Anesthesia note for documentation of the administered medications Complications: No immediate complications. Procedure: Pre-Anesthesia Assessment: - Prior to the procedure, a History and Physical was performed, and patient medications and allergies were reviewed. The patient's tolerance of previous anesthesia was also reviewed. The risks and benefits of the procedure and the sedation options and risks were discussed with the patient. All questions were answered, and informed consent was obtained. Prior Anticoagulants: The patient has taken no previous anticoagulant or antiplatelet agents. ASA Grade Assessment: II - A patient with mild systemic disease. After reviewing the risks and benefits, the patient was deemed in satisfactory condition to undergo the procedure. After obtaining informed consent, the endoscope was passed under direct vision. Throughout the procedure, the patient's blood pressure, pulse, and oxygen saturations were monitored continuously. The Endoscope was introduced through the mouth, and advanced to the second part of duodenum. The upper GI endoscopy was accomplished without difficulty. The patient tolerated the procedure well. Scope In: 10:29:47 AM Scope Out: 10:36:43 AM Total Procedure Duration Time 0 hours 6 minutes 56 seconds Findings: The middle third of the esophagus was normal. Biopsies were taken with a cold forceps for histology. The Z-line was regular and was found 40 cm from the incisors. Biopsies were taken with a cold forceps for histology. Multiple sessile polyps with no stigmata of recent bleeding were found on the greater curvature of the stomach. The polyp was removed with a cold biopsy forceps. Resection and retrieval were complete. Diffuse mildly erythematous mucosa without bleeding was found in the gastric antrum. Biopsies were taken with a cold forceps for histology. The examined duodenum was normal. Biopsies were taken with a cold forceps for histology. Impression: - Normal middle third of esophagus. Biopsied. - Z-line regular, 40 cm from the incisors. Biopsied. Small hiatal hernia - Multiple gastric polyps. Resected and retrieved. - Erythematous mucosa in the antrum. Biopsied. - Normal examined duodenum. Biopsied. Recommendation: - Discharge patient to home. - Resume previous diet. - Continue present medications. - Telephone my office for pathology results in 1 week. Procedure Code(s): --- Professional --- 23191, Esophagogastroduodenoscopy, flexible, transoral; with biopsy, single or multiple Diagnosis Code(s): --- Professional --- K31.7, Polyp of stomach and duodenum K31.89, Other diseases of stomach and duodenum R10.13, Epigastric pain CPT copyright 2017 [employer]. All rights reserved. The codes documented in this report are preliminary and upon traveling representative review may be revised to meet current compliance requirements. Domingo Glez MD 07/22/2020 11:23:24 AM This report has been signed electronically. Number of Addenda: 0 Note Initiated On: 07/22/2020 10:22 AM
--- NOTE | 2020-07-22 11:27 | OP.CCLET_ITS ---
07/22/2020 Qian Colindres [address] [place] [address] Re : Colonoscopy procedure for Chelsy Tran Dear Dr. Colindres This procedure was performed on Wednesday, July 22, 2020. My impressions and recommendations are as follows: Impressions : - Non-thrombosed external hemorrhoids, non-thrombosed internal hemorrhoids and internal hemorrhoids that prolapse with straining, but require manual replacement into the anal canal (Grade III) found on digital rectal exam. - Tortuous colon. - Diverticulosis in the sigmoid colon and in the descending colon. - Biopsies were taken with a cold forceps from the entire colon for evaluation of microscopic colitis. Recommendations : - Discharge patient to home. - Resume previous diet. - Continue present medications. - Repeat colonoscopy is not recommended due to current age (66 years or older) for screening purposes. - Telephone my office for pathology results in 1 week. My findings are described in the full procedure note, which is enclosed. If I can be of further assistance, please feel free to contact me at Doctor phone number(s): Work: . Sincerely, Domingo Glez MD 07/22/2020 11:26:58 AM This report has been signed electronically.
--- NOTE | 2020-07-22 11:27 | OP.COLON_ITS ---
Patient Name: Chelsy Tran Procedure Date: 07/22/2020 10:37 AM Date of : 1940 Age: 79 Procedure: Colonoscopy Indications: Generalized abdominal pain Providers: Domingo Glez MD Medicines: See the Anesthesia note for documentation of the administered medications Patient Profile: Last Colonoscopy: 2010. Complications: No immediate complications. Procedure: Pre-Anesthesia Assessment: - Prior to the procedure, a History and Physical was performed, and patient medications and allergies were reviewed. The patient's tolerance of previous anesthesia was also reviewed. The risks and benefits of the procedure and the sedation options and risks were discussed with the patient. All questions were answered, and informed consent was obtained. Prior Anticoagulants: The patient has taken no previous anticoagulant or antiplatelet agents. ASA Grade Assessment: II - A patient with mild systemic disease. After reviewing the risks and benefits, the patient was deemed in satisfactory condition to undergo the procedure. After I obtained informed consent, the scope was passed under direct vision. Throughout the procedure, the patient's blood pressure, pulse, and oxygen saturations were monitored continuously. The pediatric colonoscope was introduced through the anus and advanced to the cecum, identified by appendiceal orifice and ileocecal valve. The colonoscopy was technically difficult and complex due to a tortuous colon. The patient tolerated the procedure well. The quality of the bowel preparation was good. Scope In: 10:39:36 AM Scope Withdrawal Time 0 hours 6 minutes 12 seconds Scope Out: 11:17:02 AM Total Procedure Duration Time 0 hours 37 minutes 26 seconds Findings: The digital rectal exam findings include non-thrombosed external hemorrhoids, non-thrombosed internal hemorrhoids and internal hemorrhoids that prolapse with straining, but require manual replacement into the anal canal (Grade III). The colon (entire examined portion) was significantly tortuous. Advancing the scope required changing the patient to a supine position and using manual pressure. Multiple diverticula were found in the sigmoid colon and descending colon. Biopsies for histology were taken with a cold forceps from the entire colon for evaluation of microscopic colitis. Impression: - Non-thrombosed external hemorrhoids, non-thrombosed internal hemorrhoids and internal hemorrhoids that prolapse with straining, but require manual replacement into the anal canal (Grade III) found on digital rectal exam. - Tortuous colon. - Diverticulosis in the sigmoid colon and in the descending colon. - Biopsies were taken with a cold forceps from the entire colon for evaluation of microscopic colitis. Recommendation: - Discharge patient to home. - Resume previous diet. - Continue present medications. - Repeat colonoscopy is not recommended due to current age (66 years or older) for screening purposes. - Telephone my office for pathology results in 1 week. Procedure Code(s): --- Professional --- 46714, Colonoscopy, flexible; with biopsy, single or multiple Diagnosis Code(s): --- Professional --- K64.2, Third degree hemorrhoids K64.4, Residual hemorrhoidal skin tags R10.84, Generalized abdominal pain K57.30, Diverticulosis of large intestine without perforation or abscess without bleeding Q43.8, Other specified congenital malformations of intestine CPT copyright 2017 [employer]. All rights reserved. The codes documented in this report are preliminary and upon pipelayer review may be revised to meet current compliance requirements. Domingo Glez MD 07/22/2020 11:26:58 AM This report has been signed electronically. Number of Addenda: 0 Note Initiated On: 07/22/2020 10:37 AM
== END 2020-07-22 12:59 | disposition home or self-care (01) ==
LOC: EN 07:15 → AC 07:22
PROVIDERS: PCP Internal Medicine; Referring Provider Internal Medicine; Visit Provider Surgery
PROC: 0DJD8ZZ Inspection of Lower Intestinal Tract, Via Natural or Artificial Opening Endoscopic (ICD-10-PCS; CPT 45378; principal; 2020-07-22 09:40)
DX: K21.9 Gastro-esophageal reflux disease without esophagitis (principal); Z20.828 Contact with and (suspected) exposure to other viral communicable diseases; F41.9 Anxiety disorder, unspecified; K59.00 Constipation, unspecified; J45.909 Unspecified asthma, uncomplicated; Z79.899 Other long term (current) drug therapy; Z87.891 Personal history of nicotine dependence; K44.9 Diaphragmatic hernia without obstruction or gangrene; K31.7 Polyp of stomach and duodenum; K57.30 Diverticulosis of large intestine without perforation or abscess without bleeding; K64.4 Residual hemorrhoidal skin tags; Q43.8 Other specified congenital malformations of intestine; K64.2 Third degree hemorrhoids
CPT/HCPCS: 43239; 45380; 82962; 87426; 88305; 88342; J7120; J2405

== ENCOUNTER 2020-09-29 19:44 | Emergency (ER) | payer MEDICARE, OTHER, SELFPAY ==
[2020-07-22 08:02] VITALS: BMI 19.3
[2020-09-29 19:44] VITALS: BP 131/64; PULSE 87; RESP 16; TEMP 36.2; O2SAT 97; BMI 19.1
--- NOTE | 2020-09-29 20:47 | EDS_ITS ---
HPI History of Present Illness Chief Complaint: Edema Detail of Chief Complaint: Bruising and swelling of right upper leg after procedure Informant: patient Onset/Context/Timing Onset: Yesterday Context: Gradual Onset Timing: Continuous Current Severity: Mild Maximum Severity: Mild Narrative Narrative: Patient complaining of mild discomfort in her right thigh area and swelling. She had some type of vascular procedure done in [place] at [facility] about 2 to 3 weeks ago. It sounds like they did dilatation of one of the abdominal arteries for possibly mesenteric ischemia. Patient states she was doing fine until last 2 to 3 days has had mild bruising and swelling to her right leg with mild pain in her right groin. She denies any abdominal pain whatsoever. Prior similar symptoms: No Recent Illness/Hospitalization: Yes [facility] Medical History Abdominal pain Anxiety Asthma Chronic constipation Gastroesophageal reflux disease GERD (gastroesophageal reflux disease) Hemorrhoids History of bronchitis Home Medications clonazepam 1 mg PO BID 04/21/19 [History Last Taken 07/22/20] trazodone 100 mg PO QHS 04/21/19 [History Last Taken 04/20/19 22:00] albuterol sulfate 2 puff INHALATION Q4H PRN PRN #1 inhaler 04/25/19 [Rx Last Taken Unknown] valacyclovir 1 gram tablet 1 tab PO DAILY #5 tab 05/03/19 [History Last Taken Unknown] cholecalciferol (vitamin D3) 250 mcg (10,000 unit) capsule 250 mcg PO DAILY 07/16/20 [History Last Taken Unknown] multivitamin 1 tab PO DAILY 07/16/20 [History Last Taken Unknown] ondansetron HCl 4 mg tablet 4 mg PO Q12H PRN tab 07/16/20 [History Last Taken Unknown] fluticasone furoate-vilanterol 1 ea IH PRN PRN 07/17/20 [History Last Taken Unknown] Allergy/AdvReac Type Severity Reaction Status Date / Time Penicillins Allergy Vomiting Verified 09/29/20 19:47 MYOCIN Allergy Nausea Uncoded 09/29/20 19:47 Family History Father , 57 Heart disease Myocardial infarction Mother Alzheimer disease Surgical History History of appendectomy History of appendectomy History of breast implant History of breast implant removal History of cholecystectomy History of colonoscopy (~2010) History of esophagogastroduodenoscopy (EGD) (~2013) History of hysterectomy with oophorectomy History of tonsillectomy and adenoidectomy Social History Smoking Status: Former smoker ROS ROS ED ROS Narrative She denies any recent illness. Review of Systems ROS Unobtainable: Denies due to encephalopathy Constitutional Constitutional ED: Denies fever(s) or sweats Eyes Eyes: Denies change in vision ENT ENT ED: Denies sore throat Cardiovascular Cardiovascular: Denies chest pain Respiratory/Chest Respiratory/Chest: Denies dyspnea Gastrointestinal Gastrointestinal: Denies abdominal pain, constipation, diarrhea, nausea or vomiting Genitourinary Genitourinary ED: Denies dysuria or hematuria Musculoskeletal Musculoskeletal: Denies myalgias Integumentary Denies rash Neurologic Neurologic: Denies headache(s) Psychiatric Psychiatric: Denies depression Endocrine Endocrinology: Denies polyuria Allergic/Immunologic Allergic/Immunologic ED: Denies urticaria EXAM Physical Exam Narrative Exam Narrative: Well-appearing older female no acute distress. Vital signs stable afebrile. HEENT exam unremarkable. Lungs clear to auscultation. Heart regular rhythm no murmur. Abdomen soft nontender normal bowel sounds no peritoneal signs. Moving all 4 extremities. Neurovascular intact. She has mild bruising in the suprapubic area. Also along the anterior medial right thigh. Minimally tender. No cord. No lower extremity edema. Both lower extremities are neurovascularly intact. Normal DP pulse. Normal dorsi plantar flexion. Back nontender. Neurologically she is awake alert with no focal motor deficits. Const Vital Signs: 09/29/20 19:44 Temperature 97.2 F L Temperature Source Temporal Pulse Rate 87 Respiratory Rate 16 Blood Pressure 131/64 H Blood Pressure Mean 86 Pulse Ox 97 Oxygen Delivery Method Room Air Positive well nourished and well developed General Appearance ED: well developed HEENT Reports moist mucous membranes Negative for trauma or tenderness Eyes PERRL and EOMs intact bilaterally Neck no lymphadenopathy, supple and no JVD Chest Wall inspection of chest normal Resp normal respiratory effort Cardio regular rate, regular rhythm and no murmurs GI normal to inspection, nondistended, normoactive bowel sounds, non-tender, non- distended and no masses Auscultation: normoactive bowel sounds Palpation: soft Back/Spine no CVA tenderness General Back: Negative for CVA tenderness Extremity normal to inspection Extremity Narrative: Except mild bruising to her right thigh. No calf edema. Minimal tenderness in the right groin. Neuro oriented x3 Sensorium / Orientation: alert Motor Exam: strength 5/5 throughout Psych mental status grossly normal Skin no rashes or lesions noted MDM MDM MDM Narrative Medical decision making narrative: Patient with right thigh bruising mild swelling status post vascular procedure through the catheter about 2 to 3 weeks ago in [place]. Concern for possible DVT which I think is less likely versus a pseudoaneurysm. Ultrasound is being obtained. The tech knowledges its on the night is not arterial tech and is unable to do an arterial study looking for pseudoaneurysm. That will be of pain through a CAT scan. Repeat exam patient is doing well at 11:48 PM will be discharged home. Repeat exam no change. Lab Data Labs: Laboratory Results - last 24 hr 09/29/20 09/29/20 21:30 21:30 WBC 9.8 RBC 3.84 L Hgb 13.4 Hct 39.9 MCV 103.9 H MCH 34.9 H MCHC 33.6 RDW Std Deviation 48.8 H RDW Coeff of Ester 12.8 Plt Count 210 MPV 9.1 Immature Gran % (Auto) 0.300 Neut % (Auto) 69.8 Lymph % (Auto) 20.1 Ness % (Auto) 7.5 Eos % (Auto) 1.9 Baso % (Auto) 0.4 Absolute Neuts (auto) 6.8 Absolute Lymphs (auto) 1.96 Nucleated RBC % 0 Sodium 137 Potassium 3.9 Chloride 104 Carbon Dioxide 30.0 Anion Gap 3 L BUN 17 Creatinine 0.80 Estim Creat Clear Calc 45.42 Est GFR (MDRD) Af Amer 88 Est GFR (MDRD) Non-Af 73 BUN/Creatinine Ratio 21.2 H Glucose 91 Calcium 8.8 CBC unremarkable normal white count. Normal hemoglobin. Chemistries normal normal creatinine and gap. Ultrasound of the right lower extremity revealed no DVT. There appear to be a fluid collection per the residential pest control technician. CTA abdomen with runoff showed subcu edema in the right thigh region. No acute hemorrhage. No stenosis. No pseudoaneurysm. Read by the radiologist and reviewed by me. All test results were gone over with the patient. Radiography Diagnostic Testing: Radiology Impression Venous Duplex 09/29/20 20:48 IMPRESSION: No sonographic evidence of deep venous thrombosis. In the right upper anterior thigh at area of palpable concern, one of the quadriceps muscles appears enlarged and heterogeneous with intramuscular edema. Differential includes intramuscular hematoma, infarction and other less likely etiologies. Electronically Signed: Angelito Adamson MD at 21:53 EDT Tel , Service support , Abdomen/Pelvis CTA 09/29/20 22:20 IMPRESSION: 1. Right common femoral artery: No demonstrated narrowing. Mild subcutaneous edema or scarring is present in the right inguinal region. No demonstrated active arterial hemorrhaging or pseudoaneurysm on this study. Mild reactive inguinal subcentimeter adenopathy is present. 2. Colonic diverticulosis Electronically Signed: Haresh Daniels MD at 23:19 EDT , Service support , Discharge Plan Triage Chief Complaint: Edema ED Provider: Alex Briones Dx/Rx/DC Orders Clinical Impression: Leg edema Prescriptions: No Action valacyclovir 1 gram tablet 1 tab PO DAILY Qty: 5 RF: 0 ondansetron HCl 4 mg tablet 4 mg PO Q12H PRN (Reason: Nausea) RF: 0 multivitamin Tablet 1 tab PO DAILY RF: 0 cholecalciferol (vitamin D3) 250 mcg (10,000 unit) capsule 250 mcg PO DAILY RF: 0 clonazepam 1 MG tablet 1 mg PO BID RF: 0 trazodone 100 MG tablet 100 mg PO QHS RF: 0 albuterol sulfate 1 INHALER inhaler 2 puff inhalation Q4H PRN PRN (Reason: Sob &/Or Wheezing) Qty: 1 RF: 0 fluticasone furoate-vilanterol 1 EACH blister with device 1 ea IH PRN PRN (Reason: Sob &/Or Wheezing) RF: 0 Primary Care Provider: Qian Colindres Referrals: Qian Colindres MD [Primary Care Provider] - 3-5 Days if not improving Activity Restrictions/Additional Instructions: Follow-up with your vascular surgeon in [place]. This appears to be post procedure swelling of the soft tissue. There is no blood clot. There is no bleeding. There is no pseudoaneurysm. This should improve with time. Ice and elevate your leg. Disposition Disposition: Home, self care
--- NOTE | 2020-09-29 20:48 | US_ITS ---
INDICATION: S/P VASCULAR PROCEDURE- NOW WITH ANTERIOR THIGH SWELLING/ PALP EXAMINATION: US Venous Duplex LE Unilat / Limited TECHNIQUE: Wang scale, pulse wave, and color flow Doppler imaging was performed of the lower extremity venous system. The right greater saphenous, common femoral, femoral, and popliteal veins were interrogated. COMPARISON: None. FINDINGS: There is normal compression, augmentation, and signal throughout the visualized deep lower extremity veins. In the right upper anterior thigh at area of palpable concern, one of the quadriceps muscles appears enlarged and heterogeneous with intramuscular edema. This area measures approximately 5.3 cm. US/Venous Duplex Imag/Limited/Uni IMPRESSION: No sonographic evidence of deep venous thrombosis. In the right upper anterior thigh at area of palpable concern, one of the quadriceps muscles appears enlarged and heterogeneous with intramuscular edema. Differential includes intramuscular hematoma, infarction and other less likely etiologies. Electronically Signed: Angelito Adamson MD at 21:53 EDT Tel , Service support ,
[2020-09-29 21:39] LABS: Absolute Lymphocyte Count 1.96 X10^3/uL (0.83-4.51); Absolute Neutrophil Count 6.8 X10^3/uL (2.0-7.7); Basophil# 0.04 X10^3/uL; Basophil% 0.4 % (0-1); Eosinophil# 0.19 X10^3/uL; Eosinophils% 1.9 % (0-5); Hematocrit 39.9 % (37-47); Hemoglobin 13.4 g/dL (12.0-15.0); Lymphocyte # 1.96 X10^3/ul (0.83-4.51); Lymphocyte % 20.1 % (19-41); Mean Corp Hgb Conc 33.6 g/dL (32-36); Mean Corpuscular Hgb 34.9 pg (27.0-32.0); Mean Corpuscular Volume 103.9 fL (81-99); Mean Platelet Vol. 9.1 fl (6.2-12.0); Monocyte# 0.73 X10^3/uL; Monocyte% 7.5 % (0-10); NRBC Flagged by Analyzer 0 % (0-5); Neutrophil % 69.8 % (47-70); Platelet Count 210 K/mm3 (150-450); RBC Distribution Width CV 12.8 % (11.6-14.6); RBC Distribution Width SD 48.8 fl (35.1-43.9); Red Blood Count 3.84 M/mm3 (4.2-5.4); White Blood Count 9.8 K/mm3 (4.4-11.0)
[2020-09-29 21:53] LABS: Anion Gap 3 (5-15); BUN 17 mg/dL (7-18); BUN/Creat Ratio 21.2 RATIO (10-20); Calcium,Total 8.8 mg/dL (8.5-10.1); Chloride 104 mmol/L (98-107); EST Glomerular Filtration Rate 73 mL/min (>60); Est Glom Filt Rate - Afr Amer 88 mL/min (>60); Estimated Creatinine Clearance 45.42 ml/min; Glucose 91 mg/dL (74-106); Potassium 3.9 mmol/L (3.5-5.1); Sodium Level 137 mmol/L (136-145)
--- NOTE | 2020-09-29 22:20 | CT_ITS ---
STUDY: CTA OF THE ABDOMINAL AORTA AND BILATERAL LOWER EXTREMITIES REASON FOR EXAM: Female, 80 years old. Question right femoral pseudoaneurysm versus other RADIATION DOSAGE (If Supplied By Facility): CTDIvol = ( 9.326 ) mGy, DLP = ( 944.54 ) mGycm TECHNIQUE: Axial CT angiography multi-detector data acquisition was obtained from the to the following intravenous administration of IV 100mL Isovue-370. Axial images and MIP images were reconstructed from the axial data set. Post-processing of the angiographic images was performed, with multiplanar reformation and 3D reconstruction. Individualized dose optimization techniques were used for this CT. TECHNICAL QUALITY: Good COMPARISON: None. Descriptors of Narrowing: None (0%) Mild (< 50%) Moderate (50-70%) Severe (70-90%) Subtotal/Total Occlusion (90-100%) Non-Evaluable (technically non-diagnostic FINDINGS: Abdominal aorta: No demonstrated narrowing. Mild calcified atherosclerotic plaque. No aneurysm or dissection. Celiac and superior mesenteric arteries: No demonstrated narrowing. Inferior mesenteric artery: No demonstrated narrowing. Right renal artery(arteries): No demonstrated narrowing. Left renal artery(arteries): No demonstrated narrowing. Right common iliac artery: No demonstrated narrowing. Right external iliac artery: No demonstrated narrowing. Right internal iliac artery: No demonstrated narrowing. Left common iliac artery: No demonstrated narrowing. Tiny focus of calcified plaque. Left external iliac artery: No demonstrated narrowing. Left internal iliac artery: There is mild diffuse narrowing. RIGHT LOWER EXTREMITY Right common femoral artery: No demonstrated narrowing. Mild subcutaneous edema or scarring is present in the right inguinal region. No demonstrated active arterial hemorrhaging or pseudoaneurysm on this study. Mild reactive inguinal subcentimeter adenopathy is present. Right profundus femoris: No demonstrated narrowing. Right superficial femoral: No demonstrated narrowing. Right popliteal artery: No demonstrated narrowing. Right tibioperoneal trunk: No demonstrated narrowing. Right anterior tibial artery: No demonstrated narrowing. Right posterior tibial artery: No demonstrated narrowing. Right peroneal artery: No demonstrated narrowing. LEFT LOWER EXTREMITY Left common femoral artery: No demonstrated narrowing. Left profundus femoris: No demonstrated narrowing. Left superficial femoral: No demonstrated narrowing. Left popliteal artery: No demonstrated narrowing. Left tibioperoneal trunk: No demonstrated narrowing. Left anterior tibial artery: No demonstrated narrowing. Left posterior tibial artery: No demonstrated narrowing. Left peroneal artery: No demonstrated narrowing. NONVASCULAR FINDINGS: Bilateral breast implants are present. A small calcified granulomas present in the left lower lobe. Normal liver. No intrahepatic biliary duct dilatation or liver mass. There are surgical clips in the gallbladder fossa consistent with a prior cholecystectomy. Normal spleen. Normal pancreas. Normal bilateral adrenal glands. Normal right kidney. Normal left kidney. No hydronephrosis or renal masses. No large stones. Normal visualized stomach. Normal small intestine. There are multiple sigmoid colonic diverticula consistent with diverticulosis. No bowel dilatation or obstruction. No free air or free fluid. The full length of the colon is stool-filled. The appendix is visualized and appears normal. There is diffuse atherosclerotic calcification of the abdominal aorta, without a demonstrated aneurysm. Normal inferior vena cava. Normal retroperitoneum. Normal urinary bladder. There is absence of the uterus consistent with a prior hysterectomy. Normal abdominal wall. Small calcified granuloma of the right buttock. There are diffuse degenerative changes of the visualized lumbar spine. CT/CTA Abd w/Runoff W/WO Contrast IMPRESSION: 1. Right common femoral artery: No demonstrated narrowing. Mild subcutaneous edema or scarring is present in the right inguinal region. No demonstrated active arterial hemorrhaging or pseudoaneurysm on this study. Mild reactive inguinal subcentimeter adenopathy is present. 2. Colonic diverticulosis Electronically Signed: Haresh Daniels MD at 23:19 EDT , Service support ,
[2020-09-29 23:56] VITALS: BP 138/64; PULSE 77; RESP 16; O2SAT 98
== END 2020-09-29 23:57 | disposition home or self-care (01) ==
PROVIDERS: Emergency Provider Emergency Medicine; PCP Internal Medicine
DX: R60.0 Localized edema (principal); J45.909 Unspecified asthma, uncomplicated; Z87.891 Personal history of nicotine dependence
CPT/HCPCS: 75635; 80048; 85025; 93971; 99283; Q9967; A4216

== ENCOUNTER 2021-07-16 09:18 | Day surgery (SDC) | payer MEDICARE, OTHER, SELFPAY ==
--- NOTE | 2021-07-13 13:31 | EKG12_ITS ---
Test Reason : PREOP Blood Pressure : / mmHG Vent. Rate : 065 BPM Atrial Rate : 065 BPM P-R Int : 174 ms QRS Dur : 072 ms QT Int : 370 ms P-R-T Axes : 074 050 081 degrees QTc Int : 384 ms Sinus rhythm with Premature atrial complexes Septal infarct , age undetermined , cannot be excluded Abnormal ECG Confirmed by EDGAR SALINAS, JULIUS ([id number]), general expeditor AMITA RUDOLPH ([id number]) on 07/14/2021 6:43:37 AM Referred By: WILLIAM Confirmed By:JULIUS HERNÁNDEZ MD
[2021-07-13 14:44] LABS: Hematocrit 38.6 % (37-47); Hemoglobin 13.2 g/dL (12.0-15.0); Mean Corp Hgb Conc 34.2 g/dL (32-36); Mean Corpuscular Volume 96.5 fL (81-99); Mean Platelet Vol. 9.1 fl (6.2-12.0); Platelet Count 148 K/mm3 (150-450); RBC Distribution Width CV 12.3 % (11.6-14.6); RBC Distribution Width SD 43.4 fl (35.1-43.9); White Blood Count 6.6 K/mm3 (4.4-11.0)
[2021-07-13 15:33] LABS: ALB/GLOB Ratio 1.1 RATIO (0.9-2.4); AST(SGOT) 22 U/L (15-37); Alanine Aminotransfer ALT/SGPT 26 U/L (13-56); Albumin, Serum 3.6 g/dL (3.2-5.0); Alkaline Phosphatase 81 U/L (45-117); Anion Gap 4 (5-15); BUN 9 mg/dL (7-18); BUN/Creat Ratio 10.7 RATIO (10-20); Calcium,Total 8.5 mg/dL (8.5-10.1); Chloride 101 mmol/L (98-107); Creatinine, Serum 0.84 mg/dL (0.55-1.02); EST Glomerular Filtration Rate 69 mL/min (>60); Est Glom Filt Rate - Afr Amer 84 mL/min (>60); Globulin 3.3 g/dL (2.2-4.2); Glucose 100 mg/dL (74-106); Potassium 3.9 mmol/L (3.5-5.1); Protein, Total 6.9 g/dL (6.4-8.2); Sodium Level 136 mmol/L (136-145)
[2021-07-16] VITALS (9 sets, daily range): BP systolic 100–147; BP diastolic 52–116; PULSE 66–94; RESP 16–18; TEMP 36.3–36.6; O2SAT 94–100; BMI 19.5
--- NOTE | 2021-07-16 | CYST_PTH ---
PATIENT: TIFFANI MA LOC: [facility] [place] U#:[id number] AGE/SX: 80/F ROOM: RE07/16/[address]: Dr. Riddhi Ty DO : 1940 BED: DIS: 07/16/2021 SPEC #: [id number] RECD: 07/16/21 12:44 STATUS: UMU DEANNE #: [id number] MARIA GUADALUPE: 07/16/21 00:[address]: Riddhi yT DEPT: SURGICAL PATHOLOGY RECD BY: Rajendra Bustamante ENTERED: 07/16/21 12:44 SP TYPE: Cyst OTHR DR: Dr. Qian Colindres MD Tissues: CYST Procedures: Surgery Specimen Level III HEADER OPERATION: Excision Bartholin cyst PRE-OP DIAGNOSIS: Right Bartholin cyst TISSUE SUBMITTED: Right Bartholin cyst MICROSCOPIC DIAGNOSIS Right Bartholin cyst, excision: Consistent with Bartholin cyst with associated mild chronic inflammation. AM:amparo 07/17/2021 MICROSCOPIC DESCRIPTION Slides are reviewed. GROSS DESCRIPTION Received in fixative is one container labeled with the patient's name and designated right Bartholin cyst. The specimen consists of an irregular fragment of pink-wan, rubbery tissue measuring 2.8 x 2.5 x 1.5 cm. The specimen is serially sectioned and totally submitted in one cassette. / AM:amparo 07/16/2021 TC:5 [facility]: [id number]
[2021-07-16] MEDS: Lactated Ringers 1,000 ML 15 ML IV (10:12)
[2021-07-16] MEDS: Lidocaine 1% /Epi 1:100 (50ml) 50 ML VIAL (11:14)
--- NOTE | 2021-07-16 11:44 | PCM.OPRPT ---
Problems Associated Problem List Diagnoses (1) Bartholin cyst: (2) Vulvar pain: Report of Operation Date of Procedure: 07/16/21 Pre-Operative Diagnosis: Bartholin cyst, vulvar pain Post-Operative Diagnosis: As above Surgery/Procedure Performed:: Excision of bartholin cyst Description of Surgical Findings:: Right vulvar bartholin cyst measuring about 4 cm in size with dark bloody fluid present in the cyst Surgeon: Riddhi Ty inspector and adjuster golf club head: Alisha Baltazar Type of Anesthesia: MAC Special Medications: None Specimen's removed: Right bartholin cyst Drains: None Estimated Blood Loss (mL): < 50 cc Description of Procedure: Indications: The patient has had a persistent right Bartholin gland cyst despite multiple incision and drainages, Word catheter placement, and conservative therapies. The Bartholin cyst was bothersome for the patient, and she noted persistent vulvar discomfort from the cyst. She desired excision of the cyst. Discussed risk, benefits, and alternatives of excision of the Bartholin cyst and she desired to proceed. Procedure: Patient was taken to the operating room where MAC anesthesia was found be adequate. She was prepped and draped in the dorsal lithotomy position using yellowfin stirrups. The vulva was atrophic but otherwise normal-appearing. There was a 4 cm right Bartholin gland cyst that was palpated. Over the cyst and just inside the vaginal introitus, 1% lidocaine with epinephrine was injected along the incision line. An incision was made just inside the vaginal introitus over the cyst using the scalpel. Using pickups and Metzenbaum scissors the Bartholin cyst was dissected away, and in the process the cyst was ruptured for dark bloody fluid. The entire cyst was removed and sent to pathology for review. Bleeding was made hemostatic with the Bovie cautery and 2 [id number] Vicryl stitches. The vaginal mucosa was closed with 3-0 Vicryl in a running fashion. All instruments were removed. Instrument, needle, sponge counts were correct. Bleeding was hemostatic. Vaginal sweep was performed. Patient was taken to recovery in stable condition. Analysis Intern Dr. Alisha Baltazar was present for the entire surgery and assisted with draping the patient, and removing the Bartholin cyst. Grafts/Implants Used: None Procedure Start Time: 11:14 Procedure Stop Time: 11:41 Complications None Admit VTE Documentation VTE Present on Admission: No VTE Mechan Device Prophylaxis: SCD's
--- NOTE | 2021-07-16 11:54 | PCM.DC ---
Discharge Instructions Diet Discharge Diet: No restrictions Activity Discharge Activity: May Not Drive and May Shower May resume sexual activity in: 6-8 weeks Ice area for (Minutes): 15 Weight Bearing Status: Weight bearing as tolerated Lifting Restrictions: No restrictions Additional Activity Instructions:: Nothing in vagina for 6 weeks. No tampons, intercourse, hot tubs, or pools. Dressing / Incision Call your doctor if your incision/area has: Sudden Increased Bleeding, Increased Pain/ Swelling, Increased Redness, Foul Smelling Discharge and Swelling at the incision site Call your doctor if you observe: Fever of 101 or Higher, Coldness, Increased Pain, Numbness or Tingling, Change in Color, Inability to urinate, Inability to have a bowel movement, Using more than 1 pad per hour, Shortness of breath, Dizziness, Fainting spells, Swelling in the ankles, Chest pain, Increased palpitations (irregular heartbeat), Calf discomfort and Uncontrolled pain Cleanse incision/area with: Soap & Water Additional Dressing/Incision Instructions:: Allow warm soapy water to run over vaginal area/incision. Do not scrub. Pat dry or blow dry using a blow centrifugal drier operator on low setting. Keep area as clean and dry as possible. Wear cotton underwear only and loose fitting clothing. Ice will help with the pain. You will have vaginal soreness and light bleeding/spotting for 2-3 weeks. Follow Up Care Please Follow Up With: Melony When: 1-2 weeks Test Results: Test results from this visit will be discussed in further detail at your follow-up appointment, if applicable. Discharge Plan Admission Primary Reason for Your Visit: Surgery - excision of Bartholin gland cyst Attending Provider: Riddhi Ty Primary Care Provider: Qian Colindres Discharge Orders/Prescriptions Prescriptions: Continued cholecalciferol (vitamin D3) 250 mcg (10,000 unit) capsule 250 mcg PO DAILY RF: 0 clonazepam 1 MG tablet 1 mg PO BID RF: 0 trazodone 100 MG tablet 100 mg PO QHS RF: 0 albuterol sulfate 1 INHALER inhaler 2 puff inhalation Q4H PRN PRN (Reason: Sob &/Or Wheezing) Qty: 1 RF: 0 aspirin 81 mg Tablet,Delayed Release (Dr/Ec) 81 mg PO DAILY RF: 0 ascorbic acid (vitamin C) [Vitamin C] 500 mg Tablet 500 mg PO BID RF: 0 omeprazole 20 mg Tablet,Delayed Release (Dr/Ec) 20 mg PO DAILY RF: 0 Centrum Men 8 mg iron- 200 mcg-600 mcg Tablet 1 tab PO DAILY RF: 0 gabapentin 300 mg Tablet 300 mg PO QHS RF: 0 Other Ambulatory Orders: Type & Screen - PAT ONLY (Routine) Timeframe: 20200716 Facility: [facility] - Location: Laboratory Ordered By: Dr. Riddhi Ty 12 Lead EKG (Routine) Timeframe: [id number] Location: None Selected Ordered By: Dr. Riddhi Ty Referrals / Follow Up: Qian Colindres MD [Primary Care Provider] - Disposition Disposition (needs filled in before D/C Order can be placed): Home, Self Care
[2021-07-16] MEDS: HYDROcodone Bitartrate/Apap 5/325 Tablet PO (13:09)
== END 2021-07-16 23:59 | disposition home or self-care (01) ==
LOC: SDC 09:20 → AC 09:20
PROVIDERS: PCP Internal Medicine; Referring Provider Obstetrics & Gynecology; Visit Provider Obstetrics & Gynecology
PROC: (CPT 56740; principal; 2021-07-16 10:40)
DX: N75.0 Cyst of Bartholin's gland (principal); Z79.82 Long term (current) use of aspirin; Z79.899 Other long term (current) drug therapy; K21.9 Gastro-esophageal reflux disease without esophagitis; J45.909 Unspecified asthma, uncomplicated; F41.9 Anxiety disorder, unspecified; K59.09 Other constipation; R94.31 Abnormal electrocardiogram [ECG] [EKG]; Z87.891 Personal history of nicotine dependence
CPT/HCPCS: 56740; 00940; 36415; 80053; 85027; 86850; 86900; 86901; 88304; 93005; J7120; J2405

== ENCOUNTER 2022-01-11 13:00 | Outpatient (RCR) | payer MEDICARE, OTHER, SELFPAY ==
[2021-12-23 13:07] VITALS: BP 128/76; PULSE 68; TEMP 35.6
--- NOTE | 2021-12-23 14:01 | PCM.WC.HP ---
History of Present Illness Date of Service: 12/23/21 Chief Complaint: non healing ulcer on left lateral leg History of Wound: Patient is an 81 year old female who presents with left lateral leg ulcer that occurred in October when she bumped it on the corner of the car door. She has been placing neosporin ointment on it. She went and saw Dr. Casiano who put her on Amoxicillin for a cellulitis and referred her to us. She previously was on another antibiotic that she doesn't remember the name. She has a history of GERD, asthma, anxiety, she has had her gallbladder and appendix removed. Today she denies any fever, chills, nausea or vomiting. She states her appetite is good. Progress of Wound: Left lateral leg ulcer is very painful, the base is beefy pink. She has erythema surrounding the ulcer. She has minimal edema present. [facility] Medical History (Updated 12/23/21 @ 14:32 by Alison Freitas LEGAL RECOVERY SPECIALIST, LEGAL RECOVERY SPECIALIST-C) Abdominal pain Anxiety Asthma Chronic constipation Diarrhea Former smoker Gastroesophageal reflux disease GERD (gastroesophageal reflux disease) Hemorrhoids History of bronchitis Leg cramps Leg edema Wears dentures Home Medications trazodone 100 mg tablet 100 mg PO QHS sleep 04/21/19 [History Last Taken 07/15/21] albuterol sulfate 90 mcg/actuation aerosol inhaler 2 puff inhalation Q4H PRN PRN Sob &/Or Wheezing ##1 04/25/19 [Rx Last Taken 07/15/21] cholecalciferol (vitamin D3) 250 mcg (10,000 unit) capsule 250 mcg PO DAILY 07/16/20 [History Last Taken 07/15/21] ascorbic acid (vitamin C) 500 mg tablet (Vitamin C) 500 mg PO BID 07/10/21 [History Last Taken 07/15/21] aspirin 81 mg tablet,delayed release 81 mg PO DAILY 07/10/21 [History Last Taken 07/15/21] gabapentin 300 mg tablet 300 mg PO QHS 07/10/21 [History Last Taken 07/15/21] multivit,Ca,min-iron 8 mg-folic acid 200 mcg-lycopene 600 mcg tablet (Centrum Men) 1 tab PO DAILY 07/10/21 [History Last Taken 07/15/21] clonazepam 1 mg tablet See Rx Instructions PO .COMPLEX anxiety 11/16/21 [History Last Taken Unknown] fluticasone furoate 100 mcg/actuation blister powder for inhalation (Arnuity Ellipta) 1 inh inhalation DAILY #30 ea 11/16/21 [Rx Last Taken Unknown] Allergy/AdvReac Type Severity Reaction Status Date / Time Penicillins Allergy Vomiting Verified 11/16/21 11:02 MYOCIN Allergy Nausea Uncoded 11/16/21 11:02 Family History (Reviewed 12/23/21 @ 14:24 by Alison Freitas LEGAL RECOVERY SPECIALIST, LEGAL RECOVERY SPECIALIST-C) Father , 57 Heart disease Myocardial infarction Mother Alzheimer disease Surgical History (Reviewed 12/23/21 @ 14:24 by Alison Freitas LEGAL RECOVERY SPECIALIST, LEGAL RECOVERY SPECIALIST-C) History of appendectomy History of appendectomy History of breast implant History of breast implant removal History of cholecystectomy History of colonoscopy (~2010) History of esophagogastroduodenoscopy (EGD) (~2013) History of hysterectomy with oophorectomy History of tonsillectomy and adenoidectomy Social History (Reviewed 12/23/21 @ 14:24 by Alison Freitas LEGAL RECOVERY SPECIALIST, LEGAL RECOVERY SPECIALIST-C) Smoking Status: Former smoker alcohol intake: never substance use type: does not use ROS Constitutional Constitutional: Denies chills, fever(s), malaise or poor appetite Eyes Eyes: Reports none ENT HEENT: Reports none Cardiovascular Cardiovascular: Denies chest pain or dyspnea Respiratory/Chest Respiratory/Chest: Denies cough, dyspnea or dyspnea on exertion Gastrointestinal Gastrointestinal: Denies abdominal pain, nausea or vomiting Musculoskeletal Musculoskeletal: Denies joint pain or joint stiffness Integumentary Integumentary: Reports skin ulcer Neurologic Neurologic: Reports none Psychiatric Psychiatric: Reports anxiety Endocrine Endocrinology: Reports none Hematologic/Lymphatic Hematologic/Lymphatic: Reports none Vital Signs Vital Signs Vital Signs: 12/23/21 13:07 Temperature 96.0 F L Temperature Source Temporal Pulse Rate 68 Blood Pressure 128/76 H Blood Pressure Mean 93 Blood Pressure Source Monitor Blood Pressure Position Sitting Blood Pressure Location Right Arm Physical Exam Const alert, oriented x3 and no apparent distress General Appearance: cooperative and well kempt HEENT normocephalic Eyes General Eye: normal appearance of both eyes Neck full ROM Resp normal respiratory effort, normal air movement and clear to auscultation bilaterally Effort and Inspection: able to speak in complete sentences Cardio regular rate and regular rhythm Peripheral Pulses: posterior tibial pulses present bilateral 2+ GI soft to palpation and non-tender Extremity full ROM and normal capillary refill Extremity Narrative: +1 non pitting edema left leg surrounding the ulcer. Peripheral Pulses: Yes posterior tibial pulses present Skin Wound Narrative: Left lateral leg ulcer is beefy pink in the base of the ulcer, with violet wound being erythematous. Very sensitive to palpation. Neuro oriented x3 Psych thought process normal Appearance: well kempt Debridement Note Debridement Note Wound debrided: lateral leg ulcer Laterality: Left Type of Debridement: Excisional debridement Anesthesia Used: 5% Lidocaine Gel Depth: Down to and including healthy tissue and in the subcutaneous layer Percentage of wound debrided: 100 Instrument Used: 3mm curette Tissue Removed: Non viable tissue and slough Severity: Fat Layer Exposed Amount of bleeding with debridement: Mild Bleeding Controlled with: Pressure and Compression and gauze Patient tolerated procedure: Patient tolerated procedure well Post-Debridement Measurements and Additional Note: Post-Debridement Measurements/Treatment DAKSHA - Nurse 1 - General Ulcer Assessment Start: 12/23/21 13:07 Freq: Status: Active Protocol: DEEDEE Activity Type Activity Date Activity User E-sign Co-sign Detail Recorded Client Recorded Date Recorded By Document 12/23/21 13:07 SHANTELL [id number] 12/23/21 13:25 SHANTELL 12/23/21 13:07 - Today's Visit Information Type of service Initial Visit Arrival Mode Ambulatory Patient Identification Verified (Name & Yes ) Vital Signs Temperature (97.8 F-99.1 F) 96.0 F L Temperature Source Temporal Pulse Rate (60-100) 68 Pulse Location Monitor Blood Pressure (90/60-120/80) 128/76 H Blood Pressure Mean 93 Source Monitor Position Sitting Blood Pressure Location Right Arm History Since Last Visit- (Skip if this is Patient's initial visit) Have you changed medications since your No last visit? Any new allergies or adverse reactions No Had a fall/change in ADL's that may No increase risk of falls Signs or symptoms of abuse and/or No neglect since last visit Have you been in the hospital since your No last visit? Has dressing in place as prescribed No Has compression in place as prescribed N/A Has offloadiing in place as prescribed N/A Experienced any changes in pain level or No management Left Footwear Regular Shoe Right Footwear Regular Shoe Pain Scale: 0-10 Numeric Is Patient Pain Free? Yes - Nurse 1 - General Ulcer Measurement Start: 12/23/21 13:07 Freq: Status: Active Protocol: Activity Type Activity Date Activity User E-sign Co-sign Detail Recorded Client Recorded Date Recorded By Document 12/23/21 13:07 SHANTELL [id number] 12/23/21 13:25 KR 12/23/21 13:07 Wound Center Nurse 1 #1 Left Lateral Leg -Current Size (cm) - Length 0.6 -Current Size (cm) - Width 0.6 -Current Size (cm) - Depth 0.2 -Total Square Cm 0.36 -Exudate Amt Small -Exudate Type Serosanguineous -Wound Margin Distinct, Outline Attached -Granulation Amt Medium (34-66%) -Granulation Quality Red -Necrosis Amt None Present (0 %) -Texture (Violet-wound Skin Appearance) Assessed, Scarring -Moisture (Violet-wound Skin Appearance) No Abnormality, Assessed -Color (Violet-wound Skin Appearance) No Abnormality, Assessed -Temperature (Violet-wound Skin No Abnormality Appearance) (Pt Warm) -Tenderness on Palpation (Violet-wound No Skin Appearance) -Ulcer Cleansing Rinsed/ Irrigated with Saline -Foul Odor after Cleansing No -Anesthetic Used 5% Lidocaine Gel Right Calf (cm) 32 Right Ankle (cm) 20.1 Left Calf (cm) 32.1 Left Ankle (cm) 20 WC - Nurse 2 - General Ulcer CM Notes Start: 12/23/21 13:07 Freq: Status: Active Protocol: Activity Type Activity Date Activity User E-sign Co-sign Detail Recorded Client Recorded Date Recorded By Document 12/23/21 13:59 PL [id number] 12/23/21 14:00 PL 12/23/21 13:59 Wound Center Nurse 2 #1 Left Lateral Leg -Time 13:43 -Correct Patient Yes -Correct Side, Site, Position Yes -Correct Procedure Yes -Procedure Performed Yes -Type of Procedure Debridement -Clinical Debridement Subcutaneous -Tissue Removed Subcutaneous -Post Debridement (cm) - Length 1.4 -Post Debridement (cm) - Width 0.7 -Post Debridement (cm) - Depth 0.2 -Total Square (Post) (cm) 0.98 -Area of Debridement (cm) - Length 1.4 -Area of Debridement (cm) - Width 0.7 -Total Square (Area) (cm) 0.98 -Tunneling No -Undermining/Tunneling No -Circular Undermining No -Wound/Ulcer Outcome Not Healed -Ulcer Cleansing Rinsed/ Irrigated with Saline -Foul Odor after Cleansing No -Bioengineered Tissue No -Bleeding Controlled with Pressure -Treatment Response Procedure Tolerated Well -Debridement - Subq, 1st 20sq cm Yes Pain Scale: 0-10 Numeric Is Patient Pain Free? Yes Charges/Coding Visit Charges Office Visits / Consults: [id number] OV L4 Est (25 modifier) Procedures Integumentary 111xxx-113xx: [id number] Jenifer subq tissue 20 sq cm/< Assessment/Plan Assessment/Plan (1) Ulcer of left lower extremity with fat layer exposed: CODE(S): L97.922 - Non-pressure chronic ulcer of unspecified part of left lower leg with fat layer exposed (2) Leg edema, left: CODE(S): R60.0 - Localized edema PLAN: Plan Patient was seen and evaluated at the wound healing center today and a subcutaneous debridement was performed. Wound care - Collagen hydrogel covered with adaptic and topped with gauze. Single layer tubigrip for compression. Wound culture obtained today. Depending on the results of the culture, it may necessitate the need to change her antibiotics. If her wound doesn't show improvement over the next couple weeks, I will consider ordering vascular studies. Encouraged to avoid standing for long periods of time to prevent increase in swelling, elevate legs when sitting, encouraged to walk as much as she likes. Follow up one week.
[2021-12-31 13:18] VITALS: BP 110/87; PULSE 72; RESP 18; TEMP 36.3
--- NOTE | 2021-12-31 14:28 | PN.PCM_ITS ---
History of Present Illness Date of Service: 12/31/21 Chief Complaint: non healing ulcer on left lateral leg History of Wound: Patient is an 81 year old female who presents with left lateral leg ulcer that occurred in October when she bumped it on the corner of the car door. She has been placing neosporin ointment on it. She went and saw Dr. Casiano who put her on Amoxicillin for a cellulitis and referred her to us. She previously was on another antibiotic that she doesn't remember the name. She has a history of GERD, asthma, anxiety, she has had her gallbladder and appendix removed. Wound culture obtained on 12/23/21 was positive for Staphylococcus epidermidis. Will start her on Bactrim due her allergies and the sensitivity. Wound care - Collagen Hydrogel covered with adaptic and topped with gauze daily. Tubigrip with compression. Today she denies any fever, chills, nausea or vomiting. She states her appetite is good. Progress of Wound: Left lateral leg ulcer is smaller and continues to be painful. She has been wearing her compression. Objective Data Objective Data Vital Signs: Vital Signs Temp Pulse Resp BP 97.4 F L 72 18 110/87 H 12/31/21 13:18 12/31/21 13:18 12/31/21 13:18 12/31/21 13:18 Lab / Micro Data Micro: Microbiology 12/23/21 13:50 Wound Abcess - Leg, Left Gram Stain - Final 12/23/21 13:50 Wound Abcess - Leg, Left Wound Culture - Final Staphylococcus epidermidis 12/23/21 13:50 Wound Abcess - Leg, Left Anaerobic Culture - Final No anaerobic bacteria isolated. Charges/Coding Procedures Integumentary 111xxx-113xx: [id number] Jenifer subq tissue 20 sq cm/< Physical Exam Const alert, oriented x3 and no apparent distress General Appearance: cooperative and well kempt HEENT normocephalic Eyes General Eye: normal appearance of both eyes Resp normal respiratory effort Effort and Inspection: able to speak in complete sentences Cardio regular rate Peripheral Pulses: posterior tibial pulses present bilateral 2+ Extremity full ROM and normal capillary refill Extremity Narrative: +1 non pitting edema left leg surrounding the ulcer. Peripheral Pulses: Yes posterior tibial pulses present Skin Wound Narrative: Left lateral leg ulcer is beefy pink in the base of the ulcer, it is smaller is this week. Very sensitive to palpation. Neuro oriented x3 Psych thought process normal Appearance: well kempt Debridement Note Debridement Note Wound debrided: lateral leg ulcer Laterality: Left Type of Debridement: Excisional debridement Anesthesia Used: 5% Lidocaine Gel Depth: Down to and including healthy tissue and in the subcutaneous layer Percentage of wound debrided: 100 Instrument Used: 3mm curette Tissue Removed: Non viable tissue and slough Severity: Fat Layer Exposed Amount of bleeding with debridement: Mild Bleeding Controlled with: Pressure and Compression and gauze Patient tolerated procedure: Patient tolerated procedure well Post-Debridement Measurements and Additional Note: Post-Debridement Measurements/Treatment - Nurse 1 - General Ulcer Assessment Start: 12/23/21 13:07 Freq: Status: Active Protocol: DEEDEE Activity Type Activity Date Activity User E-sign Co-sign Detail Recorded Client Recorded Date Recorded By Document 12/23/21 13:07 KR [id number] 12/23/21 13:25 KR Document 12/31/21 13:18 DL [id number] 12/31/21 13:22 DL 12/23/21 12/31/21 13:07 13:18 - Today's Visit Information Type of service Initial Visit Follow-up Visit (Physician/[employer]LECT[employer]ES[employer]ER ) Arrival Mode Ambulatory Ambulatory Transfer Assistance None Patient Identification Verified (Name & Yes Yes ) Vital Signs Temperature (97.8 F-99.1 F) 96.0 F L 97.4 F L Temperature Source Temporal Temporal Pulse Rate (60-100) 68 72 Pulse Location Monitor Monitor Respiratory Rate (12-18) 18 Respiratory rate source Observation Blood Pressure (90/60-120/80) 128/76 H 110/87 H Blood Pressure Mean (mm Hg) 93 94 Source Monitor Monitor Position Sitting Blood Pressure Location Right Arm History Since Last Visit- (Skip if this is Patient's initial visit) Have you changed medications since your No No last visit? Any new allergies or adverse reactions No No Had a fall/change in ADL's that may No No increase risk of falls Signs or symptoms of abuse and/or No No neglect since last visit Have you been in the hospital since your No No last visit? Has dressing in place as prescribed No Yes Has compression in place as prescribed N/A Yes Has offloadiing in place as prescribed N/A N/A Experienced any changes in pain level or No No management Left Footwear Regular Shoe Right Footwear Regular Shoe Pain Scale: 0-10 Numeric Is Patient Pain Free? Yes Yes WC - Nurse 1 - General Ulcer Measurement Start: 12/23/21 13:07 Freq: Status: Active Protocol: Activity Type Activity Date Activity User E-sign Co-sign Detail Recorded Client Recorded Date Recorded By Document 12/23/21 13:07 KR [id number] 12/23/21 13:25 KR Document 12/31/21 13:18 DL [id number] 12/31/21 13:22 DL 12/23/21 12/31/21 13:07 13:18 Wound Center Nurse 1 #1 Left Lateral Leg -Current Size (cm) - Length 0.6 0.1 -Current Size (cm) - Width 0.6 0.1 -Current Size (cm) - Depth 0.2 0.1 -Total Square Cm 0.36 0.01 -Photo Taken No -Exudate Amt Small None Present -Exudate Type Serosanguineous -Wound Margin Distinct, Outline Attached -Granulation Amt Medium (34-66%) Small (1-33%) -Granulation Quality Red Red -Necrosis Amt None Present (0 None Present (0 %) %) -Structure Exposed N/A -Texture (Violet-wound Skin Appearance) Assessed, Scarring Scarring -Moisture (Violet-wound Skin Appearance) No Abnormality, No Abnormality Assessed -Color (Violet-wound Skin Appearance) No Abnormality, No Abnormality Assessed -Temperature (Violet-wound Skin No Abnormality No Abnormality Appearance) (Pt Warm) (Pt Warm) -Tenderness on Palpation (Violet-wound No No Skin Appearance) -Ulcer Cleansing Rinsed/ Rinsed/ Irrigated with Irrigated with Saline Saline -Foul Odor after Cleansing No No -Anesthetic Used 5% Lidocaine 5% Lidocaine Gel Gel Right Calf (cm) 32 Right Ankle (cm) 20.1 Left Calf (cm) 32.1 30 Left Ankle (cm) 20 17.5 WC - Nurse 2 - General Ulcer CM Notes Start: 12/23/21 13:07 Freq: Status: Active Protocol: Activity Type Activity Date Activity User E-sign Co-sign Detail Recorded Client Recorded Date Recorded By Document 12/23/21 13:59 PL [id number] 12/23/21 14:00 PL Document 12/31/21 13:49 MW [id number] 12/31/21 13:55 MW 12/23/21 12/31/21 13:59 13:49 Wound Center Nurse 2 #1 Left Lateral Leg -Time 13:43 13:51 -Correct Patient Yes Yes -Correct Side, Site, Position Yes Yes -Correct Procedure Yes Yes -Procedure Performed Yes Yes -Type of Procedure Debridement Debridement -Clinical Debridement Subcutaneous Subcutaneous -Tissue Removed Subcutaneous Subcutaneous -Post Debridement (cm) - Length 1.4 0.7 -Post Debridement (cm) - Width 0.7 0.3 -Post Debridement (cm) - Depth 0.2 0.1 -Total Square (Post) (cm) 0.98 0.21 -Area of Debridement (cm) - Length 1.4 0.7 -Area of Debridement (cm) - Width 0.7 0.3 -Total Square (Area) (cm) 0.98 0.21 -Tunneling No No -Undermining/Tunneling No No -Circular Undermining No No -Wound/Ulcer Outcome Not Healed Not Healed -Ulcer Cleansing Rinsed/ Rinsed/ Irrigated with Irrigated with Saline Saline -Foul Odor after Cleansing No No -Bioengineered Tissue No No -Bleeding Controlled with Pressure Pressure -Treatment Response Procedure Procedure Tolerated Well Tolerated Well -Offloading No -Debridement - Subq, 1st 20sq cm Yes Yes Pain Scale: 0-10 Numeric Is Patient Pain Free? Yes Yes Assessment/Plan Assessment/Plan (1) Ulcer of left lower extremity with fat layer exposed: CODE(S): L97.922 - Non-pressure chronic ulcer of unspecified part of left lower leg with fat layer exposed (2) Leg edema, left: CODE(S): R60.0 - Localized edema PLAN: Plan Patient was seen and evaluated at the wound healing center today and a subcutaneous debridement was performed. Wound care - Collagen hydrogel covered with adaptic and topped with gauze. Single layer tubigrip for compression. Wound culture obtained on 12/23/21 was positive for Staphylococcus epidermidis. Will start her on Bactrim due her allergies and the sensitivity. If her wound doesn't show improvement over the next couple weeks, I will consider ordering vascular studies. Encouraged to avoid standing for long periods of time to prevent increase in swelling, elevate legs when sitting, encouraged to walk as much as she likes. Follow up one week.
[2022-01-11 12:59] VITALS: BP 119/82; PULSE 80; TEMP 36.3
--- NOTE | 2022-01-11 15:04 | PN.PCM_ITS ---
History of Present Illness Date of Service: 01/11/22 Chief Complaint: non healing ulcer on left lateral leg History of Wound: Patient is an 81 year old female who presents with left lateral leg ulcer that occurred in October when she bumped it on the corner of the car door. She has been placing neosporin ointment on it. She went and saw Dr. Casiano who put her on Amoxicillin for a cellulitis and referred her to us. She previously was on another antibiotic that she doesn't remember the name. She has a history of GERD, asthma, anxiety, she has had her gallbladder and appendix removed. Wound culture obtained on 12/23/21 was positive for Staphylococcus epidermidis. She will finish Bacitracin this week. Wound care - Collagen Hydrogel covered with adaptic and topped with gauze daily. Tubigrip with compression. Today she denies any fever, chills, nausea or vomiting. She states her appetite is good. Progress of Wound: Left lateral leg ulcer is healed today. She has been wearing her compression. Objective Data Objective Data Vital Signs: Vital Signs Temp Pulse Resp BP 97.3 F L 80 18 119/82 H 01/11/22 12:59 01/11/22 12:59 12/31/21 13:18 01/11/22 12:59 Lab / Micro Data Micro: Microbiology 12/23/21 13:50 Wound Abcess - Leg, Left Gram Stain - Final 12/23/21 13:50 Wound Abcess - Leg, Left Wound Culture - Final Staphylococcus epidermidis 12/23/21 13:50 Wound Abcess - Leg, Left Anaerobic Culture - Final No anaerobic bacteria isolated. Charges/Coding Visit Charges Office Visits / Consults: 80176 OV L3 Est Physical Exam Const alert and oriented x3 General Appearance: well kempt HEENT normocephalic Eyes General Eye: normal appearance of both eyes Resp normal respiratory effort Effort and Inspection: able to speak in complete sentences Cardio regular rate Peripheral Pulses: posterior tibial pulses present bilateral 2+ Extremity full ROM and normal capillary refill Extremity Narrative: +1 edema left leg . Peripheral Pulses: Yes posterior tibial pulses present Skin Wound Narrative: Left lateral leg ulcer is healed. Still is tender to palpation. Neuro oriented x3 Psych thought process normal Appearance: well kempt Debridement Note Debridement Note No debridement was completed: No debridement was completed today Post-Debridement Measurements and Additional Note: Post-Debridement Measurements/Treatment WC - Nurse 1 - General Ulcer Assessment Start: 12/23/21 13:07 Freq: Status: Active Protocol: DEEDEE Activity Type Activity Date Activity User E-sign Co-sign Detail Recorded Client Recorded Date Recorded By Document 12/23/21 13:07 KR [id number] 12/23/21 13:25 KR Document 12/31/21 13:18 DL [id number] 12/31/21 13:22 DL Document 01/11/22 12:59 AK [id number] 01/11/22 13:02 AK 12/23/21 12/31/21 01/11/22 13:07 13:18 12:59 WC - Today's Visit Information Type of service Initial Visit Follow-up Visit Follow-up Visit (Physician/OPTIMIZATION SPECIALIST (Physician/OPTIMIZATION SPECIALIST ) ) Arrival Mode Ambulatory Ambulatory Ambulatory Transfer Assistance None Patient Identification Verified (Name & Yes Yes Yes ) Patient Requires Transmission-Based No Precautions Vital Signs Temperature (97.8 F-99.1 F) 96.0 F L 97.4 F L 97.3 F L Temperature Source Temporal Temporal Temporal Pulse Rate (60-100) 68 72 80 Pulse Location Monitor Monitor Monitor Respiratory Rate (12-18) 18 Respiratory rate source Observation Blood Pressure (90/60-120/80) 128/76 H 110/87 H 119/82 H Blood Pressure Mean (mm Hg) 93 94 94 Source Monitor Monitor Monitor Position Sitting Blood Pressure Location Right Arm History Since Last Visit- (Skip if this is Patient's initial visit) Have you changed medications since your No No No last visit? Any new allergies or adverse reactions No No No Had a fall/change in ADL's that may No No No increase risk of falls Signs or symptoms of abuse and/or No No No neglect since last visit Have you been in the hospital since your No No No last visit? Has dressing in place as prescribed No Yes Yes Has compression in place as prescribed N/A Yes N/A Has offloadiing in place as prescribed N/A N/A N/A Experienced any changes in pain level or No No No management Left Footwear Regular Shoe Regular Shoe Right Footwear Regular Shoe Regular Shoe Pain Scale: 0-10 Numeric Is Patient Pain Free? Yes Yes Yes DAKSHA - Nurse 1 - General Ulcer Measurement Start: 12/23/21 13:07 Freq: Status: Active Protocol: Activity Type Activity Date Activity User E-sign Co-sign Detail Recorded Client Recorded Date Recorded By Document 12/23/21 13:07 KR [id number] 12/23/21 13:25 KR Document 12/31/21 13:18 DL [id number] 12/31/21 13:22 DL Document 01/11/22 12:59 AK [id number] 01/11/22 13:02 AK 12/23/21 12/31/21 01/11/22 13:07 13:18 12:59 Wound Center Nurse 1 #1 Left Lateral Leg -Combined with other wound No -Current Size (cm) - Length 0.6 0.1 0.1 -Current Size (cm) - Width 0.6 0.1 0.1 -Current Size (cm) - Depth 0.2 0.1 0.1 -Total Square Cm 0.36 0.01 0.01 -Date of Last Picture (Recall this 01/11/22 field) -Photo Taken No Yes -Tunneling No -Undermining/Tunneling No -Circular Undermining No -Change in Wound Grade/Stage No -Exudate Amt Small None Present None Present -Exudate Type Serosanguineous -Wound Margin Distinct, Distinct, Outline Outline Attached Attached -Granulation Amt Medium (34-66%) Small (1-33%) None Present (0 %) -Granulation Quality Red Red N/A -Slough/Fibrin No -Necrosis Amt None Present (0 None Present (0 None Present (0 %) %) %) -Structure Exposed N/A N/A -Texture (Violet-wound Skin Appearance) Assessed, Scarring Assessed, Scarring Scarring -Moisture (Violet-wound Skin Appearance) No Abnormality, No Abnormality No Abnormality, Assessed Assessed -Color (Violet-wound Skin Appearance) No Abnormality, No Abnormality No Abnormality, Assessed Assessed -Temperature (Violet-wound Skin No Abnormality No Abnormality No Abnormality Appearance) (Pt Warm) (Pt Warm) (Pt Warm) -Tenderness on Palpation (Violet-wound No No No Skin Appearance) -Ulcer Cleansing Rinsed/ Rinsed/ Rinsed/ Irrigated with Irrigated with Irrigated with Saline Saline Saline -Foul Odor after Cleansing No No No -Anesthetic Used 5% Lidocaine 5% Lidocaine 5% Lidocaine Gel Gel Gel Right Calf (cm) 32 Right Ankle (cm) 20.1 Left Calf (cm) 32.1 30 Left Ankle (cm) 20 17.5 - Nurse 2 - General Ulcer CM Notes Start: 12/23/21 13:07 Freq: Status: Active Protocol: Activity Type Activity Date Activity User E-sign Co-sign Detail Recorded Client Recorded Date Recorded By Document 12/23/21 13:59 PL [id number] 12/23/21 14:00 PL Document 12/31/21 13:49 MW [id number] 12/31/21 13:55 MW Document 01/11/22 13:18 JF [id number] 01/11/22 13:19 JF 12/23/21 12/31/21 01/11/22 13:59 13:49 13:18 Wound Center Nurse 2 #1 Left Lateral Leg -Time 13:43 13:51 -Correct Patient Yes Yes No -Correct Side, Site, Position Yes Yes No -Correct Procedure Yes Yes No -Procedure Performed Yes Yes No -Type of Procedure Debridement Debridement -Clinical Debridement Subcutaneous Subcutaneous -Tissue Removed Subcutaneous Subcutaneous -Post Debridement (cm) - Length 1.4 0.7 0 -Post Debridement (cm) - Width 0.7 0.3 0 -Post Debridement (cm) - Depth 0.2 0.1 0 -Total Square (Post) (cm) 0.98 0.21 0 -Area of Debridement (cm) - Length 1.4 0.7 0 -Area of Debridement (cm) - Width 0.7 0.3 0 -Total Square (Area) (cm) 0.98 0.21 0 -Tunneling No No -Undermining/Tunneling No No -Circular Undermining No No -Wound/Ulcer Outcome Not Healed Not Healed Healed- Epithelialized -Ulcer Cleansing Rinsed/ Rinsed/ Irrigated with Irrigated with Saline Saline -Foul Odor after Cleansing No No -Bioengineered Tissue No No -Bleeding Controlled with Pressure Pressure -Treatment Response Procedure Procedure Tolerated Well Tolerated Well -Offloading No -Debridement - Subq, 1st 20sq cm Yes Yes Pain Scale: 0-10 Numeric Is Patient Pain Free? Yes Yes Yes DAKSHA - Nurse 3 - General Ulcer D/C NN Start: 12/23/21 13:07 Freq: Status: Active Protocol: Activity Type Activity Date Activity User E-sign Co-sign Detail Recorded Client Recorded Date Recorded By Document 12/31/21 14:34 DL [id number] 12/31/21 14:35 DL 12/31/21 14:34 Wound Care Nurse 3 #1 Left Lateral Leg -Ulcer Cleansing Rinsed/ Irrigated with Saline -Foul Odor after Cleansing No -Primary Dressing Applied NonAdherent Contact Layer -Other Dressing hydrogel -Primary Dressing Covered/Secured with Dry Gauze & Roll Gauze, Secured with Tape Left -Tubular Bandage Single Layer -Size of Tubigrip Used Size D -Size D ($) 1 Treatment Response Procedure Tolerated Well Pain Scale: 0-10 Numeric Is Patient Pain Free? Yes WC - Visit Discharge Discharge Condition Stable Ambulatory Status Ambulatory Transportation Private Auto Assessment/Plan Assessment/Plan (1) Ulcer of left lower extremity with fat layer exposed: CODE(S): L97.922 - Non-pressure chronic ulcer of unspecified part of left lower leg with fat layer exposed (2) Leg edema, left: CODE(S): R60.0 - Localized edema PLAN: Plan Patient was seen and evaluated at the wound healing center today. Her left leg ulcer is healed. She should continue to wear gauze over it for another week due to how fragile the skin is. Massage with lotion daily to help soften scarring and prevent it from becoming dry. She will complete her antibiotic over the next couple days. Continue to wear Tubigrip for compression. Follow up as needed.
== END 2022-01-15 13:47 | disposition home or self-care (01) ==
LOC: WC 13:00
PROVIDERS: PCP Internal Medicine; Referring Provider Family Medicine; Visit Provider Nurse Practitioner Family
DX: L97.822 Non-pressure chronic ulcer of other part of left lower leg with fat layer exposed (principal); R60.0 Localized edema; Z79.82 Long term (current) use of aspirin; F41.9 Anxiety disorder, unspecified; M79.605 Pain in left leg; Z87.891 Personal history of nicotine dependence; K21.9 Gastro-esophageal reflux disease without esophagitis; J45.909 Unspecified asthma, uncomplicated; Z79.899 Other long term (current) drug therapy
CPT/HCPCS: 11042; 87070; 87075; 87077; 87186; 87205; 99213; G0463

== ENCOUNTER 2022-05-19 09:21 | Emergency (ER) | payer MEDICARE, OTHER, SELFPAY ==
[2022-05-19 09:22] VITALS: BP 121/99; PULSE 79; RESP 17; TEMP 36.2; O2SAT 100; BMI 17.0
--- NOTE | 2022-05-19 10:18 | CT_ITS ---
STUDY: CT ABDOMEN AND PELVIS WITH CONTRAST REASON FOR EXAM: Female, 81 years old. Pain RADIATION DOSAGE (If Supplied By Facility): CTDIvol = ( 11.63 ) mGy, DLP = ( 315.64 ) mGycm TECHNIQUE: Transaxial images were obtained from the dome of the diaphragm to the symphysis pubis without oral contrast. IV 100mL Isovue-370 was administered. Sagittal and coronal images were reconstructed. Individualized dose optimization techniques were used for this CT. COMPARISON: September 29, 2020 CT angiogram abdomen and pelvis with runoff FINDINGS: The visualized lung bases are unremarkable. The visualized portions of the heart are within normal limits. There are bilateral breast implants. Normal liver. There are surgical clips in the gallbladder fossa consistent with a prior cholecystectomy. Normal spleen. Normal pancreas. Normal bilateral adrenal glands. There is mild right sided extrarenal pelvis stable since prior study. There is mild distention of the proximal left ureter. There are no visualized stones along the course of the left ureter. Findings are similar to the prior study. There is a small 2 to 3 mm cystic structure left kidney partially seen on prior study. There is mild thickening of the distal esophagus. There is a mildly distended gaseous appearance of most of the small bowel. There are numerous diverticula within the colon with retained contrast. There is no visualized inflammation or diverticulitis. There is quite a bit artifact within the study. Allowing for artifact the appendix is partially visualized and appears of normal caliber. Image #65 axial views. Aorta is tortuous and minimally calcified. There is a patent appearance of the bilateral common iliac arteries and branches. Normal inferior vena cava. Normal retroperitoneum. The bladder is distended. There is absence of the uterus consistent with a prior hysterectomy. Normal abdominal wall. There is visualized degenerative change in the thoracolumbar spine. There are Schmorl''s nodes in the lower thoracic spine. At L1-L2 there is disc space narrowing and endplate sclerosis without neural foramina narrowing the central stenosis. At L2-3 there is minimal disc space narrowing and no significant neural foramina narrowing or central stenosis. There is mild disc space narrowing at L3-L4 with minimal endplate sclerosis. There is a Schmorl''s node. At L4-L5 there is mild disc space narrowing minimal broad disc bulge. There is ligamentum flavum hypertrophy mild central stenosis and mild neural foramina narrowing. L5-S1 there is vacuum phenomenon without neural foramina narrowing or central stenosis. There is degenerative change of the SI joints. CT/Abdomen/Pelvis W IV Cont ONLY IMPRESSION: Moderate constipation gassy appearance of most of the small bowel consider ileus. There is diverticulosis without visualized diverticulitis. Status post cholecystectomy. Status post hysterectomy. Degenerative changes of the thoracolumbar spine. Bilateral breast implants. Minimal bilateral renal pelviectasis stable since prior study. Partially visualized appendix without evidence of inflammatory change. Electronically Signed: Kala Camilo MD at 13:11 EST Reading Location ID and State: [facility] / [place] Tel , Service support ,
--- NOTE | 2022-05-19 10:20 | ED.VIS.GI ---
HPI HPI - GI History of Present Illness Chief Complaint: Diarrhea Informant: patient Narrative Narrative: Patient presents with approximately 2 months of generalized abdominal pain. It does seem to be more in the epigastric area and not as much lower though. She states she gets nauseated if she eats but she has never vomited. She has lost a total of 11 pounds over the last 2 months. She estimates that 6 pounds just in the last week. She has been having black stools the entire time. Sometimes they will be soft but she has had episodes with watery stools also. None seem like they are melena. She is denying any recent surgeries. She has had prior cholecystectomy, appendectomy, hysterectomy. She thinks she has had colonoscopy and endoscopy but it has been a long time. She saw a paid search specialist in [place] about 10 days ago. She states he was supposed to be the most brilliant doctor in [place]. She was started on Pepcid. Since she was leaving town they could not do a work-up there. Therefore no blood work or imaging was done. She called their office and they referred her to the emergency department. She called her primary doctor who recommended she come to the emergency department for IV. It took quite some questioning. But it sounds like the only medicine the patient takes regularly is trazodone at night. Pepcid she has been taking once a day for the last approximately 10 days. She takes no other medications. Despite her allergies she denied any actual allergies to me. Nothing specifically makes her symptoms better or worse but eating does make the nausea come on. PFSH PFSH Medical History Abdominal bloating Abdominal pain Acute depression Acute gastritis Anxiety Asthma Chronic constipation Diarrhea Diverticulosis Former smoker Gastroesophageal reflux disease GERD (gastroesophageal reflux disease) Hemorrhoids History of bronchitis IBS (irritable bowel syndrome) Leg cramps Leg edema Nausea Wears dentures Home Medications trazodone 100 mg tablet 100 mg PO QHS sleep 04/21/19 [History Last Taken 07/15/21] esomeprazole magnesium 20 mg capsule,delayed release (Nexium) 20 mg PO DAILY #30 caps 05/19/22 [Rx Last Taken Unknown] famotidine 20 mg tablet mg 05/19/22 [History Last Taken Unknown] ondansetron 4 mg disintegrating tablet 4 mg PO Q8H PRN nausea and vomiting #10 tabs 12/28/22 [Rx Last Taken Unknown] sucralfate 1 gram tablet (Carafate) 1 g PO TID #30 tabs 05/19/22 [Rx Last Taken Unknown] Allergy/AdvReac Type Severity Reaction Status Date / Time cephalexin Allergy Intermediate Other Verified 05/19/22 09:22 nitrofurantoin Allergy Intermediate Other Verified 05/19/22 09:22 [From Macrobid] prednisone Allergy Intermediate Other Verified 05/19/22 09:22 Sulfa (Sulfonamide Allergy Intermediate Other Verified 05/19/22 09:22 Antibiotics) Penicillins Allergy Vomiting Verified 05/19/22 09:22 MYOCIN Allergy Nausea Uncoded 05/19/22 09:22 Family History Father , 57 Heart disease Myocardial infarction Mother Alzheimer disease Surgical History History of appendectomy History of appendectomy History of breast implant History of breast implant removal History of cholecystectomy History of colonoscopy (~2010) History of esophagogastroduodenoscopy (EGD) (~2013) History of hysterectomy with oophorectomy History of tonsillectomy and adenoidectomy Social History Smoking Status: Former smoker alcohol intake: never substance use type: does not use ROS ROS ED Constitutional Constitutional ED: Denies chills, fever(s) or subjective ENT ENT ED: Denies rhinorrhea Cardiovascular Cardiovascular: Denies chest pain or palpitations Respiratory/Chest Respiratory/Chest: Denies cough or dyspnea Gastrointestinal Gastrointestinal: Reports abdominal pain, diarrhea and nausea; Denies constipation, melena or vomiting Genitourinary Genitourinary ED: Denies hematuria Musculoskeletal Musculoskeletal: Denies back pain Integumentary Denies rash Neurologic Neurologic: Denies headache(s) Psychiatric Psychiatric: Reports anxiety Endocrine Endocrinology: Denies polydipsia or polyuria Hematologic/Lymphatic Hematologic/Lymphatic: Denies easy bleeding or easy bruising Allergic/Immunologic Allergic/Immunologic ED: Denies urticaria EXAM Physical Exam Const Vital Signs: 05/19/22 09:22 05/19/22 11:22 05/19/22 13:00 Temperature 97.1 F L Temperature Source Temporal Pulse Rate 79 85 Respiratory Rate 17 18 18 Blood Pressure 121/99 H 130/85 H Blood Pressure Mean 106 100 Pulse Ox 100 97 100 Oxygen Delivery Method Room Air Room Air Room Air Positive well nourished and well developed General Appearance ED: well developed and NAD; Negative for pallor HEENT Reports moist mucous membranes Eyes Eyes Narrative: No notable pallor. General Eye ED: Negative for pale conjunctiva Neck no lymphadenopathy Resp normal respiratory effort and clear to auscultation bilaterally Cardio regular rate and regular rhythm GI GI Narrative: Abdomen is thin. Bowel sounds are slightly increased. I do not feel any mass. There is no focal tenderness on exam. No rebound or guarding. Palpation: soft Back/Spine no CVA tenderness Extremity General Extremety ED: Negative for tenderness Neuro Sensorium / Orientation: alert; Negative for confused, lethargic or stuporous Psych mental status grossly normal Skin no wounds General Skin Exam: Negative for pallor MDM MDM MDM Narrative Medical decision making narrative: CT was hinting of an ileus but this does not match the clinical picture as she is still moving her bowels regularly. White count is normal. Hemoglobin is 15.1 despite reported black stools for 2 months. Her platelets are normal. Electrolytes are normal. Liver function test is normal. Lipase is normal. Patient was still nauseated. I gave her some Phenergan which helped. Patient is very concerned that she has lost weight. I explained that it is concerning but she is also had abdominal pain and nausea. If we can control these hopefully we can get her to eat. There is no indication of dehydration or acute laboratory abnormalities. CAT scan is not showing an acute process that requires admission at this time. I think she does need follow-up. When I mention following up with Dr. Quesada, she states she is already supposed to see him soon but I do not know when this appointment was made because it sounds like she was in [place] until recently. But I think it is a good plan. She may need endoscopy. I will write for some Nexium. I asked planed she can take this instead of the Pepcid that she has been trying. We will write for some Carafate. I will write for some Zofran also. We discussed reasons to return. Lab Data Attestation: I reviewed the patient's lab results. Labs: Laboratory Results - last 24 hr 05/19/22 05/19/22 05/19/22 10:36 10:36 10:59 WBC 7.7 RBC 4.51 Hgb 15.1 H Hct 43.4 MCV 96.2 MCH 33.5 H MCHC 34.8 RDW Std Deviation 45.2 H RDW Coeff of Ester 12.8 Plt Count 206 MPV 9.0 Immature Gran % (Auto) 0.300 Neut % (Auto) 71.7 H Lymph % (Auto) 18.7 L [place] % (Auto) 8.1 Eos % (Auto) 0.8 Baso % (Auto) 0.4 Absolute Neuts (auto) 5.5 Absolute Lymphs (auto) 1.43 Nucleated RBC % 0 Sodium Cancelled Cancelled Potassium Cancelled Cancelled Chloride Cancelled Cancelled Carbon Dioxide Cancelled Cancelled Anion Gap Cancelled Cancelled BUN Cancelled Cancelled Creatinine Cancelled Cancelled Estim Creat Clear Calc Cancelled Cancelled Est GFR (MDRD) Af Amer Cancelled Cancelled Est GFR (MDRD) Non-Af Cancelled Cancelled BUN/Creatinine Ratio Cancelled Cancelled Glucose Cancelled Cancelled Calcium Cancelled Cancelled Total Bilirubin Cancelled Cancelled AST Cancelled Cancelled ALT Cancelled Cancelled Alkaline Phosphatase Cancelled Cancelled Total Protein Cancelled Cancelled Albumin Cancelled Cancelled Globulin Cancelled Cancelled Albumin/Globulin Ratio Cancelled Cancelled Lipase Cancelled Cancelled 05/19/22 11:38 WBC RBC Hgb Hct MCV MCH MCHC RDW Std Deviation RDW Coeff of Ester Plt Count MPV Immature Gran % (Auto) Neut % (Auto) Lymph % (Auto) [place] % (Auto) Eos % (Auto) Baso % (Auto) Absolute Neuts (auto) Absolute Lymphs (auto) Nucleated RBC % Sodium 139 Potassium 3.6 Chloride 105 Carbon Dioxide 27.0 Anion Gap 7 BUN 11 Creatinine 0.90 Estim Creat Clear Calc 35.89 Est GFR (MDRD) Af Amer 77 Est GFR (MDRD) Non-Af 64 BUN/Creatinine Ratio 12.2 Glucose 96 Calcium 9.0 Total Bilirubin 0.60 AST 22 ALT 23 Alkaline Phosphatase 80 Total Protein 7.2 Albumin 3.9 Globulin 3.3 Albumin/Globulin Ratio 1.2 Lipase 78 Radiography Diagnostic Testing: Clinical Impression(s) from Imaging Studies Abdomen/Pelvis CT 05/19/22 10:18 IMPRESSION: Moderate constipation gassy appearance of most of the small bowel consider ileus. There is diverticulosis without visualized diverticulitis. Status post cholecystectomy. Status post hysterectomy. Degenerative changes of the thoracolumbar spine. Bilateral breast implants. Minimal bilateral renal pelviectasis stable since prior study. Partially visualized appendix without evidence of inflammatory change. Electronically Signed: Kala Camilo MD at 13:11 EST , CT scan looked at by me and read by radiology shows no sign of acute process. There is some mild constipation. And there were consideration of ileus. However, patient is still moving her bowels and still eating. I do not think this represents an ileus clinically. Discharge Plan Triage Chief Complaint: Diarrhea ED Provider: Tanner Chin Dx/Rx/DC Orders Clinical Impression: Abdominal pain, Gastritis, Nausea, Abnormal weight loss Instructions: ED Gastritis Ulcer No Abx Prescriptions: New esomeprazole magnesium [Nexium] 20 mg capsule,delayed release(DR/EC) 20 mg PO DAILY Qty: 30 0RF ondansetron 4 mg tablet,disintegrating 4 mg PO Q8H PRN (Reason: nausea and vomiting) Qty: 10 0RF sucralfate [Carafate] 1 gram tablet 1 g PO TID Qty: 30 0RF No Action trazodone 100 MG tablet 100 mg PO QHS famotidine 20 mg Tablet Primary Care Provider: Qian Colindres Referrals: Qian Colindres MD [Primary Care Provider] - 3-5 Days if not improving Gerardo Quesada DO [Med Staff - Active Staff] - As soon as possible Disposition Disposition: Home, Self Care
[2022-05-19] MEDS: Ondansetron 4 MG/2 ML Vial IV (10:35)
[2022-05-19] MEDS: 0.9% Normal Saline 1,000 ML 1000 ML IV (10:35)
[2022-05-19 10:42] LABS: Absolute Lymphocyte Count 1.43 X10^3/uL (0.83-4.51); Absolute Neutrophil Count 5.5 X10^3/uL (2.0-7.7); Basophil# 0.03 X10^3/uL; Basophil% 0.4 % (0-1); Eosinophil# 0.06 X10^3/uL; Eosinophils% 0.8 % (0-5); Hematocrit 43.4 % (37-47); Hemoglobin 15.1 g/dL (12.0-15.0); Lymphocyte # 1.43 X10^3/ul (0.83-4.51); Lymphocyte % 18.7 % (19-41); Mean Corp Hgb Conc 34.8 g/dL (32-36); Mean Corpuscular Hgb 33.5 pg (27.0-32.0); Mean Corpuscular Volume 96.2 fL (81-99); Monocyte# 0.62 X10^3/uL; Monocyte% 8.1 % (0-10); NRBC Flagged by Analyzer 0 % (0-5); Neutrophil # 5.49 X10^3/uL (2.7-7.7); Neutrophil % 71.7 % (47-70); Platelet Count 206 K/mm3 (150-450); RBC Distribution Width CV 12.8 % (11.6-14.6); RBC Distribution Width SD 45.2 fl (35.1-43.9); Red Blood Count 4.51 M/mm3 (4.2-5.4); White Blood Count 7.7 K/mm3 (4.4-11.0)
--- NOTE | 2022-05-19 10:46 | NURSING ---
CHEMISTRIES HEMOLIZED. NEEDS REDRAWN
[2022-05-19 11:22] VITALS: RESP 18; O2SAT 97
[2022-05-19 12:01] LABS: ALB/GLOB Ratio 1.2 RATIO (0.9-2.4); AST(SGOT) 22 U/L (15-37); Alanine Aminotransfer ALT/SGPT 23 U/L (13-56); Albumin, Serum 3.9 g/dL (3.2-5.0); Alkaline Phosphatase 80 U/L (45-117); Anion Gap 7 (5-15); BUN 11 mg/dL (7-18); BUN/Creat Ratio 12.2 RATIO (10-20); Chloride 105 mmol/L (98-107); EST Glomerular Filtration Rate 64 mL/min (>60); Est Glom Filt Rate - Afr Amer 77 mL/min (>60); Estimated Creatinine Clearance 35.89 ml/min; Globulin 3.3 g/dL (2.2-4.2); Glucose 96 mg/dL (74-106); Lipase 78 U/L (73-393); Potassium 3.6 mmol/L (3.5-5.1); Protein, Total 7.2 g/dL (6.4-8.2); Sodium Level 139 mmol/L (136-145)
[2022-05-19 13:00] VITALS: BP 130/85; PULSE 85; RESP 18; O2SAT 100
[2022-05-19] MEDS: proMETHazine 25 MG Tablet 12.5 MG PO (14:00)
--- NOTE | 2022-05-19 14:55 | ED.RN ---
PATIENT UPSET AND INFORMED SHE HAS BEEN DISCHARGED. RN AT BEDSIDE EXPLAINING MEDICATIONS. PT STATES THE MEDICATION YOU GAVE ME DID NOT WORK AT ALL. I DON'T FEEL WELL AND YOU GUYS AREN'T DOING ANYTHING. RN STATED THE PHENERGAN I GAVE YOU? THE DOCTOR ALSO WROTE A PRESCRIPTION FOR ZOFRAN TO HELP. PATIENT STATES SHE WANTED A WHEELCHAIR TO CARRY HER BAGS OUT. RN STATED OK, UNFORTUNATELY YOU CANT TAKE THE WHEELCHAIR TO THE CAR. DID YOU CARRY THEM IN? PATIENT STATES I DID MYSELF BUT THEY ARE PRETTY HEAVY. PICK THEM UP YOURSELF. RN PICKS UP THE BAG AND PATIENT STATES WELL, YOU'RE YOUNG AND HEALTHY. OF COURSE YOU CAN DO IT. PATIENT STATES NEVER MIND. I WILL CARRY THEM MYSELF. I AM GOING TO WRITE THIS PLACE UP.
== END 2022-05-19 14:59 | disposition home or self-care (01) ==
PROVIDERS: Emergency Provider Emergency Medicine; PCP Internal Medicine; Visit Provider Emergency Medicine
DX: K29.70 Gastritis, unspecified, without bleeding (principal); R63.4 Abnormal weight loss; Z87.891 Personal history of nicotine dependence
CPT/HCPCS: 36415; 74177; 80053; 83690; 85025; 96361; 96374; 99284; J7030; Q9967; A4216; J2405; J3490

== ENCOUNTER 2022-05-25 18:12 | Emergency (ER) | payer MEDICARE, OTHER, SELFPAY ==
[2022-05-25 18:15] VITALS: BP 134/67; PULSE 89; RESP 16; TEMP 36.2; O2SAT 99
[2022-05-25 18:17] VITALS: O2SAT 99
--- NOTE | 2022-05-25 18:31 | EKG12_ITS ---
Test Reason : SOB Blood Pressure : / mmHG Vent. Rate : 087 BPM Atrial Rate : 087 BPM P-R Int : 174 ms QRS Dur : 072 ms QT Int : 338 ms P-R-T Axes : -01 075 -11 degrees QTc Int : 406 ms Sinus rhythm with Premature supraventricular complexes Low voltage QRS (Limb Leads) Poor R wave progression Nonspecific T wave abnormality Abnormal ECG Confirmed by EDGAR SALINAS, JULIUS ([id number]), senior editor AMITA RUDOLPH ([id number]) on 05/27/2022 9:40:27 AM Referred By: Confirmed By:JULIUS HERNÁNDEZ MD
--- NOTE | 2022-05-25 18:34 | EX.ED.DYSGE1 ---
HPI History of Present Illness Chief Complaint: Shortness of Breath Informant: patient Narrative Narrative: Patient present secondary to shortness of breath and weight loss. Patient states that she is lost another 6 pounds since she was here last. She states that her primary care physician is aware of this and she is even seen specialist in the [place] area. She is try to supplement with extra Ensure drinks. When asked why she is in the emergency room specifically today she states it is because of shortness of breath. She states it started today but she has had intermittent shortness of breath for some time. She has occasional chest pain but cannot describe it for me. Patient states that she has difficulty eating because sometimes she will vomit her food back up and sometimes she has trouble getting it swallowed down. [facility] Medical History Abdominal bloating Abdominal pain Acute depression Acute gastritis Anxiety Asthma Chronic constipation Diarrhea Diverticulosis Former smoker Gastroesophageal reflux disease GERD (gastroesophageal reflux disease) Hemorrhoids History of bronchitis IBS (irritable bowel syndrome) Leg cramps Leg edema Nausea Wears dentures Home Medications trazodone 100 mg tablet 100 mg PO QHS sleep 04/21/19 [History Last Taken 07/15/21] esomeprazole magnesium 20 mg capsule,delayed release (Nexium) 20 mg PO DAILY #30 caps 05/19/22 [Rx Last Taken Unknown] famotidine 20 mg tablet 20 mg PO DAILY 05/19/22 [History Last Taken Unknown] ondansetron 4 mg disintegrating tablet 4 mg PO Q8H PRN nausea and vomiting #10 tabs 05/19/22 [Rx Last Taken Unknown] sucralfate 1 gram tablet (Carafate) 1 g PO TID #30 tabs 05/19/22 [Rx Last Taken Unknown] Allergy/AdvReac Type Severity Reaction Status Date / Time cephalexin Allergy Intermediate Other Verified 05/25/22 18:19 nitrofurantoin Allergy Intermediate Other Verified 05/25/22 18:19 [From Macrobid] prednisone Allergy Intermediate Other Verified 05/25/22 18:19 Sulfa (Sulfonamide Allergy Intermediate Other Verified 05/25/22 18:19 Antibiotics) Penicillins Allergy Vomiting Verified 05/25/22 18:19 MYOCIN Allergy Nausea Uncoded 05/25/22 18:19 Family History Father , 57 Heart disease Myocardial infarction Mother Alzheimer disease Surgical History History of appendectomy History of appendectomy History of breast implant History of breast implant removal History of cholecystectomy History of colonoscopy (~2010) History of esophagogastroduodenoscopy (EGD) (~2013) History of hysterectomy with oophorectomy History of tonsillectomy and adenoidectomy Social History Smoking Status: Former smoker alcohol intake: never substance use type: does not use ROS ROS ED Constitutional Constitutional ED: Denies chills or fever(s) Eyes Eyes: Denies change in vision or discharge from eye(s) ENT ENT ED: Denies discharge from eye(s), rhinorrhea or sore throat Cardiovascular Cardiovascular: Reports chest pain; Denies palpitations Respiratory/Chest Respiratory/Chest: Reports dyspnea; Denies cough Gastrointestinal Gastrointestinal: Denies abdominal pain, diarrhea, nausea or vomiting Genitourinary Genitourinary ED: Denies dysuria Musculoskeletal Musculoskeletal: Denies back pain or extremity pain Integumentary Denies Abrasions or rash Neurologic Neurologic: Denies headache(s) or weakness Endocrine Endocrinology: Denies polydipsia or polyuria Allergic/Immunologic Allergic/Immunologic ED: Denies lip swelling or urticaria EXAM Physical Exam Const Vital Signs: 05/25/22 18:15 05/25/22 18:17 Temperature 97.2 F L Temperature Source Temporal Pulse Rate 89 Respiratory Rate 16 Respiratory Effort Normal Non-Labored Respiratory Depth Normal Respiratory Pattern Normal Blood Pressure 134/67 H Blood Pressure Mean 89 Pulse Ox 99 Oxygen Delivery Method Room Air Room Air Positive well nourished and well developed General Appearance ED: well developed HEENT Reports normocephalic and head/scalp atraumatic Eyes PERRL and EOMs intact bilaterally Neck supple Chest Wall inspection of chest normal and palpation of chest normal Resp normal respiratory effort and clear to auscultation bilaterally Cardio regular rate and regular rhythm GI normal to inspection, nondistended, normoactive bowel sounds Palpation: soft Extremity normal to inspection Neuro oriented x3 and no sensory deficits noted Sensorium / Orientation: alert Motor Exam: strength 5/5 throughout Psych Mood & Affect: anxious Skin no rashes or lesions noted MDM MDM MDM Narrative Medical decision making narrative: Patient placed on cardiac monitor technician. EKG and chest x-ray obtained. Lab work ordered. Due to the patient having difficulty swallowing a CT head was obtained. Lab Data Attestation: I reviewed the patient's lab results. Labs: Laboratory Results - last 24 hr 05/25/22 05/25/22 05/25/22 18:50 18:50 18:50 WBC 8.8 RBC 4.33 Hgb 14.1 Hct 41.7 MCV 96.3 MCH 32.6 H MCHC 33.8 RDW Std Deviation 44.3 H RDW Coeff of Ester 12.5 Plt Count 199 MPV 9.1 Immature Gran % (Auto) 0.200 Neut % (Auto) 70.3 H Lymph % (Auto) 21.6 [place] % (Auto) 6.6 Eos % (Auto) 1.0 Baso % (Auto) 0.3 Absolute Neuts (auto) 6.2 Absolute Lymphs (auto) 1.89 Nucleated RBC % 0 D-Dimer Quant (PE/DVT) < 0.27 L Sodium 136 Potassium 3.9 Chloride 102 Carbon Dioxide 28.0 Anion Gap 6 BUN 31 H Creatinine 0.79 Estim Creat Clear Calc 37.39 Est GFR (MDRD) Af Amer 89 Est GFR (MDRD) Non-Af 74 BUN/Creatinine Ratio 39.1 H Glucose 109 H Calcium 9.7 Troponin I High Sens 4 B-Natriuretic Peptide TSH 2.63 05/25/22 18:50 WBC RBC Hgb Hct MCV MCH MCHC RDW Std Deviation RDW Coeff of Ester Plt Count MPV Immature Gran % (Auto) Neut % (Auto) Lymph % (Auto) [place] % (Auto) Eos % (Auto) Baso % (Auto) Absolute Neuts (auto) Absolute Lymphs (auto) Nucleated RBC % D-Dimer Quant (PE/DVT) Sodium Potassium Chloride Carbon Dioxide Anion Gap BUN Creatinine Estim Creat Clear Calc Est GFR (MDRD) Af Amer Est GFR (MDRD) Non-Af BUN/Creatinine Ratio Glucose Calcium Troponin I High Sens B-Natriuretic Peptide 9.6 TSH Radiography Chest X-Ray - ED: 1 View, Read by ED Physician, Normal, Heart, Lungs and Mediastinum Diagnostic Testing: Clinical Impression(s) from Imaging Studies Brain CT 05/25/22 18:38 IMPRESSION: 1. No acute intracranial abnormality. 2. Mild underlying senescent change with small vessel ischemia. Electronically Signed: Mack Bradley MD at 19:43 EST , Chest X-Ray 05/25/22 19:22 IMPRESSION: No radiographic evidence of acute cardiopulmonary disease. Electronically Signed: Mack Bradley MD at 19:49 EST , EKG Initial EKG: Attestation: I personally reviewed and interpreted this EKG as follows: Interpretation: Sinus Rhythm (Sinus 87 with no acute ischemia.) Treatment and Re-Evaluation Narrative: CBC and chemistry studies are unremarkable. D-dimer is negative. Troponin, TSH, BNP are all unremarkable. Chest x-ray per my interpretation reveals no acute findings. Radiology interpretation is reviewed and agrees. EKG is unremarkable. CT scan of the head reveals no acute findings. I did asked nursing staff to perform a bedside swallow test as the patient had reported difficulty with swallowing. She passed this without difficulty. On repeat evaluation she was reporting some mild nausea and was given a dose of Zofran. At this time her symptoms are improved. I will write her a prescription for Zofran. I did encourage her to follow-up with her primary care physician for further ongoing monitoring and testing. Discharge Plan Triage Chief Complaint: Shortness of Breath ED Provider: Odette Dobbins Dx/Rx/DC Orders Clinical Impression: Dyspnea, Difficulty swallowing Instructions: ED Dyspnea, ED Dysphagia (Adult) Prescriptions: No Action trazodone 100 MG tablet 100 mg PO QHS famotidine 20 mg Tablet 20 mg PO DAILY esomeprazole magnesium [Nexium] 20 mg capsule,delayed release(DR/EC) 20 mg PO DAILY Qty: 30 0RF ondansetron 4 mg tablet,disintegrating 4 mg PO Q8H PRN (Reason: nausea and vomiting) Qty: 10 0RF sucralfate [Carafate] 1 gram tablet 1 g PO TID Qty: 30 0RF Primary Care Provider: Qian Colindres Referrals: Qian Colindres MD [Primary Care Provider] - 1-2 Weeks Disposition Disposition: Home, Self Care
--- NOTE | 2022-05-25 18:38 | CT_ITS ---
EXAM: CT HEAD WITHOUT INTRAVENOUS CONTRAST CLINICAL INDICATION: dysphagia TECHNIQUE: Multiple axial images were obtained of the head without intravenous contrast. This CT exam was performed using one or more of the following dose reduction techniques: automated exposure control, adjustment of the mA and/or kV according to patient size, and/or use of iterative reconstruction technique. This report was created using [employer] report AllClear ID technology. COMPARISON: None. FINDINGS: BRAIN AND EXTRA-AXIAL SPACES: There is enlargement of ventricular system and cortical sulci. There is hypoattenuation in the periventricular white matter. No intra- or extra-axial hemorrhage. No evidence of acute infarct. No intracranial mass or mass effect. There is preservation of the parisi/white matter interface. Posterior fossa structures are unremarkable. Basal cisterns are patent. BONES/JOINTS: Unremarkable. No discrete lytic or blastic abnormalities. SINUSES: Unremarkable as visualized. Clear. MASTOID AIR CELLS: Unremarkable. Clear. ORBITS: Visualized globes, extraocular muscles, optic nerves and retrobulbar fat appear unremarkable. CT/Brain/Head without Contrast IMPRESSION: 1. No acute intracranial abnormality. 2. Mild underlying senescent change with small vessel ischemia. Electronically Signed: Mack Bradley MD at 19:43 EST ,
[2022-05-25 19:01] LABS: Absolute Lymphocyte Count 1.89 X10^3/uL (0.83-4.51); Absolute Neutrophil Count 6.2 X10^3/uL (2.0-7.7); Basophil# 0.03 X10^3/uL; Basophil% 0.3 % (0-1); Eosinophil# 0.09 X10^3/uL; Hematocrit 41.7 % (37-47); Hemoglobin 14.1 g/dL (12.0-15.0); Lymphocyte # 1.89 X10^3/ul (0.83-4.51); Lymphocyte % 21.6 % (19-41); Mean Corp Hgb Conc 33.8 g/dL (32-36); Mean Corpuscular Hgb 32.6 pg (27.0-32.0); Mean Corpuscular Volume 96.3 fL (81-99); Mean Platelet Vol. 9.1 fl (6.2-12.0); Monocyte# 0.58 X10^3/uL; Monocyte% 6.6 % (0-10); NRBC Flagged by Analyzer 0 % (0-5); Neutrophil # 6.16 X10^3/uL (2.7-7.7); Neutrophil % 70.3 % (47-70); Platelet Count 199 K/mm3 (150-450); RBC Distribution Width CV 12.5 % (11.6-14.6); RBC Distribution Width SD 44.3 fl (35.1-43.9); Red Blood Count 4.33 M/mm3 (4.2-5.4); White Blood Count 8.8 K/mm3 (4.4-11.0)
[2022-05-25] MEDS: 0.9% Normal Saline 1,000 ML 150 ML IV (19:01)
[2022-05-25 19:12] LABS: D-Dimer Quantitative (DVT/PE) < 0.27 FEU/ug/m (0.27-0.49)
[2022-05-25 19:19] LABS: BNP,B-Type NATRIURETIC PEPTIDE 9.6 pg/mL (0-100)
--- NOTE | 2022-05-25 19:22 | RAD_ITS ---
EXAM: XR CHEST, 1 VIEW CLINICAL INDICATION: sob TECHNIQUE: Frontal view of the chest. This report was created using Code42 report generation technology. COMPARISON: 04/21/2019 FINDINGS: LUNGS AND PLEURAL SPACES: Unremarkable. No consolidation or edema. No pneumothorax. No effusion. HEART: Unremarkable. Cardiac silhouette not enlarged. MEDIASTINUM: Central airways and mediastinal contour are unremarkable. BONES/JOINTS: Unremarkable. SOFT TISSUES: Unremarkable. RAD/Chest 1 View (Portable) IMPRESSION: No radiographic evidence of acute cardiopulmonary disease. Electronically Signed: Mack Bradley MD at 19:49 EST ,
[2022-05-25 19:29] LABS: Anion Gap 6 (5-15); BUN 31 mg/dL (7-18); BUN/Creat Ratio 39.1 RATIO (10-20); Calcium,Total 9.7 mg/dL (8.5-10.1); Chloride 102 mmol/L (98-107); Creatinine, Serum 0.79 mg/dL (0.55-1.02); EST Glomerular Filtration Rate 74 mL/min (>60); Est Glom Filt Rate - Afr Amer 89 mL/min (>60); Estimated Creatinine Clearance 37.39 ml/min; Glucose 109 mg/dL (74-106); Potassium 3.9 mmol/L (3.5-5.1); Sodium Level 136 mmol/L (136-145); Thyroid Stim Hormone (TSH) 2.63 uIU/mL (0.358-3.74); Troponin-I HS 4 pg/mL (3.0-54.0)
[2022-05-25] MEDS: Ondansetron 4 MG/2 ML Vial IV (20:47)
== END 2022-05-25 21:45 | disposition home or self-care (01) ==
PROVIDERS: Emergency Provider Emergency Medicine; PCP Internal Medicine; Visit Provider Emergency Medicine
DX: R13.10 Dysphagia, unspecified (principal); R06.02 Shortness of breath; Z87.891 Personal history of nicotine dependence
CPT/HCPCS: 70450; 71045; 80048; 83880; 84443; 84484; 85025; 85379; 87428; 93005; 96374; 99285; J7030; A4216; J2405

== ENCOUNTER → 2022-06-25 | Outpatient (CLI) | payer MEDICARE, OTHER, SELFPAY ==
[2022-06-25 15:36] LABS: Absolute Lymphocyte Count 1.74 X10^3/uL (0.83-4.51); Absolute Neutrophil Count 4.7 X10^3/uL (2.0-7.7); Basophil# 0.04 X10^3/uL; Basophil% 0.5 % (0-1); Eosinophil# 0.13 X10^3/uL; Eosinophils% 1.8 % (0-5); Hematocrit 41.4 % (37-47); Hemoglobin 13.7 g/dL (12.0-15.0); Lymphocyte # 1.74 X10^3/ul (0.83-4.51); Lymphocyte % 23.8 % (19-41); Mean Corp Hgb Conc 33.1 g/dL (32-36); Mean Corpuscular Hgb 33.7 pg (27.0-32.0); Mean Platelet Vol. 8.9 fl (6.2-12.0); Monocyte# 0.73 X10^3/uL; NRBC Flagged by Analyzer 0 % (0-5); Neutrophil # 4.66 X10^3/uL (2.7-7.7); Neutrophil % 63.8 % (47-70); Platelet Count 162 K/mm3 (150-450); RBC Distribution Width CV 13.4 % (11.6-14.6); RBC Distribution Width SD 50.8 fl (35.1-43.9); Red Blood Count 4.06 M/mm3 (4.2-5.4); White Blood Count 7.3 K/mm3 (4.4-11.0)
[2022-06-25 16:23] LABS: ALB/GLOB Ratio 1.3 RATIO (0.9-2.4); AST(SGOT) 25 U/L (15-37); Alanine Aminotransfer ALT/SGPT 24 U/L (13-56); Albumin, Serum 3.8 g/dL (3.2-5.0); Alkaline Phosphatase 63 U/L (45-117); Anion Gap 6 (5-15); BUN 27 mg/dL (7-18); BUN/Creat Ratio 31.6 RATIO (10-20); CRP < 2.90 mg/L (0.0-3.0); Chloride 100 mmol/L (98-107); Creatinine, Serum 0.86 mg/dL (0.55-1.02); EST Glomerular Filtration Rate 68 mL/min (>60); Est Glom Filt Rate - Afr Amer 82 mL/min (>60); Globulin 2.9 g/dL (2.2-4.2); Glucose 86 mg/dL (74-106); LDH 203 U/L (84-246); Potassium 4.5 mmol/L (3.5-5.1); Protein, Total 6.7 g/dL (6.4-8.2); Sodium Level 139 mmol/L (136-145)
[2022-06-25 17:18] LABS: Erythrocyte Sedimentation Rate 4 mm/hr (0-30)
[2022-06-28 13:07] LABS: Anti-Centromere B Ab <0.2 AI (0.0-0.9); Anti-Chromatin 0.8 AI (0.0-0.9); Anti-Jo <0.2 AI (0.0-0.9); Anti-Scleroderma-70 AB <0.2 AI (0.0-0.9); RNP Ab <0.2 AI (0.0-0.9); SJOGREN'S Anti-SS-A test < 0.2 AI (0.0-0.9); SJOGREN'S Anti-SS-B test 2.5 AI (0.0-0.9); Smith Ab <0.2 AI (0.0-0.9)
[2022-06-28 13:58] LABS: Anti-dsDNA Ab <1 IU/mL (0-9)
[2022-06-28 15:08] LABS: Endomysial Antibody IgA Negative (Negative)
[2022-06-28 15:51] LABS: Immunoglobulin A 153 mg/dL (64-422); t-Transglutaminase IgA <2 U/mL (0-3)
[2022-07-01 08:09] LABS: Albumin 3.8 g/dL (2.9-4.4); Alpha-1-Globulins 0.2 g/dL (0.0-0.4); Alpha-2-Globulins 0.8 g/dL (0.4-1.0); Immunoglobulin A 159 mg/dL (64-422); Immunoglobulin E 161 IU/mL (6-495); Immunoglobulin G 964 mg/dL (586-1602); Immunoglobulin M 76 mg/dL (26-217); PROEL- TOTAL PROTEIN 6.7 g/dL (6.0-8.5)
[2022-07-01 17:56] LABS: Cytoplasmic Ab (C-ANCA) <1:20 titer (Neg:<1:20); Perinuclear Ab (P-ANCA) <1:20 titer (Neg:<1:20)
== END | disposition home or self-care (01) ==
PROVIDERS: PCP Internal Medicine; Referring Provider Internal Medicine Gastroenterology; Visit Provider Internal Medicine Gastroenterology
DX: R10.9 Unspecified abdominal pain (principal)
CPT/HCPCS: 36415; 80053; 82784; 82785; 83516; 83615; 84165; 85025; 85652; 86140; 86225; 86235; 86255; 86256; 86334

== ENCOUNTER → 2022-07-06 | Outpatient (CLI) | payer MEDICARE, OTHER, SELFPAY ==
[2022-07-09 19:18] LABS: Calprotectin, Stool <16 ug/g (0-120)
[2022-07-09 19:21] LABS: Pancreatic Elastase, Fecal 162 (>200)
== END | disposition home or self-care (01) ==
LOC: LABSPEC 14:54
PROVIDERS: PCP Internal Medicine; Visit Provider Internal Medicine Gastroenterology
DX: R10.9 Unspecified abdominal pain (principal)
CPT/HCPCS: 82653; 83630; 83993

== ENCOUNTER 2022-08-25 08:48 | Day surgery (SDC) | payer MEDICARE, OTHER, SELFPAY ==
[2022-08-25] VITALS (9 sets, daily range): BP systolic 89–144; BP diastolic 46–88; PULSE 67–118; RESP 15–18; TEMP 36.2–36.6; O2SAT 95–100; BMI 18.7
--- NOTE | 2022-08-25 | EGD_PTH ---
PATIENT: TFIFANI MA LOC: EN U#:[id number] AGE/SX: 81/F ROOM: RE08/25/[address]: Dr. Gerardo Quesada DO : 1940 BED: DIS: 08/25/2022 SPEC #: [id number] RECD: 08/25/22 12:39 STATUS: UMU DEANNE #: [id number] MARIA GUADALUPE: 08/25/22 00:[address]: Gerardo Quesada DEPT: SURGICAL PATHOLOGY RECD BY: Rajendra Bustamante ENTERED: 08/25/22 12:39 SP TYPE: EGD BIOPSY SHERIN DR: Dr. Qian Colindres MD Tissues: A - Duodenum, NOS B - Esophageal mucous membrane Procedures: Special Stain Group II Surgery Specimen Level IV Alcian Blue/PAS (control) HEADER OPERATION: Colonoscopy, EGD ([facility]) PRE-OP DIAGNOSIS: Abdominal pain TISSUE SUBMITTED: A ? Duodenum biopsy, B ? Distal esophagus biopsy MICROSCOPIC DIAGNOSIS A. Duodenum, biopsy: No pathologic change. B. Distal esophagus, biopsy: Fragments of gastric mucosa with chronic inflammation. No evidence of goblet cell metaplasia. See comment. AM:amparo 08/26/2022 COMMENT B. Alcian blue/PAS stain with matched control supports the above diagnosis. MICROSCOPIC DESCRIPTION Slides are reviewed. GROSS DESCRIPTION A - Received in fixative is one container labeled with the patient's name and designated duodenum biopsy. The specimen consists of multiple irregular fragments of light wan soft tissue that in aggregate measure 1.5 x 0.5 x 0.1 cm. The specimen is totally submitted in one cassette. B - Received in fixative is one container labeled with the patient's name and designated distal esophagus. The specimen consists of one irregular fragment of light wan soft tissue that measures 0.6 x 0.6 x 0.1 cm. The specimen is totally submitted in one cassette. / AM:amparo 08/25/2022 TC:3 CPT: 98662 x2, 24497
[2022-08-25] MEDS: Lactated Ringers 1,000 ML 15 ML IV (09:00)
--- NOTE | 2022-08-25 09:09 | HP.PCM_ITS ---
History and Physical Date of Admission: 08/25/22 81 F who presents to the office today for Initial consult. Chelsy established with this clinic 2.3. with referral from PCP. She has had a longstanding history of constipation that has recently changed to frequent loose stools for many months with abdominal pain and nausea without emesis with weight loss of approximately 20lbs; she started ensure drinks and has been able to increase weight to 115lbs recently. Gastroenterology history includes acute gastritis, diverticulosis, reflux (we llchol), internal hemorrhoids PMH anxiety, bronchiectasis, depression, mitral valve prolapse, raynauds, psoriasis ROS Const Constitutional: No anorexia, fatigue, fever(s), weight change or sleep problems Eyes Eyes: No change in vision ENT ENT: No abnormal hearing, difficulty swallowing, mouth lesions, tongue swelling or throat swelling Resp Respiratory: No cough or shortness of breath Cardio Cardiology: No chest pain at rest, chest pain with exertion, shortness of breath or dyspnea on exertion Gastro GI: No difficulty swallowing Genitourinary-Female: No difficulty urinating or burning urination Musc Musculoskeletal: No joint pain, joint swelling, muscle weakness or decreased muscle mass Skin Skin: No hair loss in leg, yellowing of the eye, itchy eyes, rash, skin ulcer or skin swelling Neuro Neurology: No abnormal hearing, abnormal movements, confusion, unsteady gait/balance or memory loss Psych Psychiatric: No anxiety, No confusion and No memory loss Endo Endocrine: No fatigue or weight change Aller/Imm Allergy/Immunologic: No itchy eyes, throat swelling or tongue swelling Jay/Lymp Hematologic/Lymphatic: No easy bleeding, easy bruising or enlarged lymph nodes Exam Const General: cooperative and comfortable Nutritional Appearance: average body habitus and well nourished [facility] Head: normal to inspection Ears: hearing grossly normal bilaterally Nose: external nose normal Face and sinus: normal facial exam Mouth: oral mucosae normal Throat: posterior oropharynx normal Eyes General: appearance normal, both eyes and all related structures Neck Neck: normal visual inspection Chest Chest palpation & inspection: normal inspection of the chest and normal palpation of entire chest wall Resp Effort & Inspection: normal respiratory effort Auscultation: Bilateral: Clear to Auscultation Cardio Palpation: normal PMI Rate: regular rate Rhythm: regular rhythm GI Inspection: normal to inspection Auscultation: normal bowel sounds Percussion: normal to percussion Palpation: no hepatosplenomegaly Skin General: no rashes or lesions noted Neuro General: patient alert Extrem General: normal to inspection Psych Affect: normal affect Quality Reporting Tobacco Screening ([facility] 138) Smoking Status: Former smoker Assessment and Plan Assessment and Plan (1) Abdominal pain: ?Status:?Acute ?Plan: The differential diagnosis for her diarrhea and abdominal pain does include mi croscopic colitis collagenous colitis, IBS with diarrhea, exocrine pancreatic insufficiency and less likely inflammatory bowel disease.? She is also getting some bloating and cramping after eating.? Differential diagnosis would include H. pylori associated gastritis, peptic ulcer disease, IBS, celiac disease.? She will undergo an upper lower endoscopy to evaluate upper GI tract and lower GI tract.? We will take biopsies for microscopic disease.? I would not put her on any antibiotics or any medicines at this time.? That her stool culture and stool for enteric pathogens and C. difficile is subsequently negative.? We will get stool samples for fecal calprotectin in the near future along with stool for ova and parasites with lactoferrin.. ? ? ? Orders: Orders Comprehensive Metabolic Profil Today R10.9 - Unspecified abdominal pain ? CRP Today R10.9 - Unspecified abdominal pain ? LDH Today R10.9 - Unspecified abdominal pain ? CBC W/Diff, Automated Today J45.41 - Moderate persistent asthma with (acute) exacerbation, R10.9 - Unspecified abdominal pain ? Erythrocyte Sed Rate Today R10.9 - Unspecified abdominal pain ? EMILIA Comprehensive Panel Today R10.9 - Unspecified abdominal pain ? Calprotectin, Stool Today R10.9 - Unspecified abdominal pain ? Stool Lactoferrin/WBC Today R10.9 - Unspecified abdominal pain ? ANCA Today R10.9 - Unspecified abdominal pain ? Celiac Disease Profile Today R10.9 - Unspecified abdominal pain ? Immunoglobulins G/A/M/E Today R10.9 - Unspecified abdominal pain ? JOHN + Protein Elect, Serum Today R10.9 - Unspecified abdominal pain ? Pancreatic Elastase, Fecal Today R10.9 - Unspecified abdominal pain ? Miscellaneous Lab Procedure Today R10.9 - Unspecified abdominal pain ? I have examined the patient and the H&P has been reviewed. There are no clinical changes since date of exam.
[2022-08-25] MEDS: Lactated Ringers 1,000 ML 999 ML IV (09:16)
--- NOTE | 2022-08-25 10:40 | OP.EGD_ITS ---
Patient Name: Chelsy Tran Procedure Date: 08/25/2022 9:46 AM Date of : 1940 Age: 81 Procedure: Upper GI endoscopy Indications: Epigastric abdominal pain Providers: Gerardo Quesada DO Referring MD: Gerardo Quesada DO Medicines: Monitored Anesthesia Care Patient Profile: This is an 81 year old female. Refer to note in patient chart for documentation of history and physical. Patient has symptoms of chronic epigastric abdominal pain. Complications: No immediate complications. Procedure: Pre-Anesthesia Assessment: - Prior to the procedure, a History and Physical was performed, and patient medications and allergies were reviewed. The risks and benefits of the procedure and the sedation options and risks were discussed with the patient. All questions were answered and informed consent was obtained. Patient identification and proposed procedure were verified by the physician. Mental Status Examination: normal. Respiratory Examination: clear to auscultation. CV Examination: normal. Prophylactic Antibiotics: The patient does not require prophylactic antibiotics. Prior Anticoagulants: The patient has taken no previous anticoagulant or antiplatelet agents. After reviewing the risks and benefits, the patient was deemed in satisfactory condition to undergo the procedure. The anesthesia plan was to use moderate sedation / analgesia (conscious sedation). Immediately prior to administration of medications, the patient was re-assessed for adequacy to receive sedatives. The heart rate, respiratory rate, oxygen saturations, blood pressure, adequacy of pulmonary ventilation, and response to care were monitored throughout the procedure. The physical status of the patient was re-assessed after the procedure. After obtaining informed consent, the endoscope was passed under direct vision. Throughout the procedure, the patient's blood pressure, pulse, and oxygen saturations were monitored continuously. The colonoscope was introduced through the mouth, and advanced to the second part of duodenum. The upper GI endoscopy was accomplished without difficulty. The patient tolerated the procedure well. Scope In: 9:57:01 AM Scope Out: 10:01:03 AM Total Procedure Duration Time 0 hours 4 minutes 2 seconds Findings: Non-severe esophagitis with no bleeding was found 38 to 39 cm from the incisors. Patchy mild inflammation characterized by congestion (edema), erosions and erythema was found in the gastric body and in the gastric antrum. Biopsies were taken with a cold forceps for histology. Verification of patient identification for the specimen was done. Estimated blood loss was minimal. Mildly erythematous mucosa without active bleeding and with no stigmata of bleeding was found in the first portion of the duodenum. Biopsies were taken with a cold forceps for histology. Verification of patient identification for the specimen was done. Estimated blood loss was minimal. Impression: - Non-severe non-erosive esophagitis. - Gastritis. Biopsied. - Erythematous duodenopathy. Biopsied. Recommendation: - Discharge patient to home. - Resume previous diet. - Continue present medications. - Await pathology results. - Use Protonix (pantoprazole) 40 mg PO daily for 8 weeks. Procedure Code(s): --- Professional --- 96612, Esophagogastroduodenoscopy, flexible, transoral; with biopsy, single or multiple CPT copyright 2017 [employer]. All rights reserved. The codes documented in this report are preliminary and upon scenic arts supervisor review may be revised to meet current compliance requirements. Gerardo Quesada DO 08/25/2022 10:39:53 AM This report has been signed electronically. Number of Addenda: 0 Note Initiated On: 08/25/2022 9:46 AM
--- NOTE | 2022-08-25 10:41 | OP.CCLET_ITS ---
08/25/2022 Qian Colindres [address] [place] [address] Re : Upper GI endoscopy procedure for Chelsy Tran Dear Dr. Colindres This procedure was performed on Thursday, August 25, 2022. My impressions and recommendations are as follows: Impressions : - Non-severe non-erosive esophagitis. - Gastritis. Biopsied. - Erythematous duodenopathy. Biopsied. Recommendations : - Discharge patient to home. - Resume previous diet. - Continue present medications. - Await pathology results. - Use Protonix (pantoprazole) 40 mg PO daily for 8 weeks. My findings are described in the full procedure note, which is enclosed. If I can be of further assistance, please feel free to contact me at . Sincerely, Gerardo Quesada, 08/25/2022 10:39:53 AM This report has been signed electronically.
--- NOTE | 2022-08-25 10:45 | OP.COLON_ITS ---
Patient Name: Chelsy Tran Procedure Date: 08/25/2022 10:01 AM Date of : 1940 Age: 81 Procedure: Colonoscopy Indications: Screening for colorectal malignant neoplasm Providers: Gerardo Quesada DO Referring MD: Gerardo Quesada DO Medicines: See the Anesthesia note for documentation of the administered medications Patient Profile: This is an 81 year old female. Refer to note in patient chart for documentation of history and physical. Patient has symptoms of chronic epigastric abdominal pain. Last Colonoscopy: more than 10 years ago. Complications: No immediate complications. Procedure: Pre-Anesthesia Assessment: - Prior to the procedure, a History and Physical was performed, and patient medications and allergies were reviewed. The risks and benefits of the procedure and the sedation options and risks were discussed with the patient. All questions were answered and informed consent was obtained. Patient identification and proposed procedure were verified by the physician. Mental Status Examination: normal. Respiratory Examination: clear to auscultation. CV Examination: normal. Prophylactic Antibiotics: The patient does not require prophylactic antibiotics. Prior Anticoagulants: The patient has taken no previous anticoagulant or antiplatelet agents. After reviewing the risks and benefits, the patient was deemed in satisfactory condition to undergo the procedure. The anesthesia plan was to use moderate sedation / analgesia (conscious sedation). Immediately prior to administration of medications, the patient was re-assessed for adequacy to receive sedatives. The heart rate, respiratory rate, oxygen saturations, blood pressure, adequacy of pulmonary ventilation, and response to care were monitored throughout the procedure. The physical status of the patient was re-assessed after the procedure. After I obtained informed consent, the scope was passed under direct vision. Throughout the procedure, the patient's blood pressure, pulse, and oxygen saturations were monitored continuously. The colonoscope was introduced through the anus and advanced to the terminal ileum. The colonoscopy was performed without difficulty. The patient tolerated the procedure well. The quality of the bowel preparation was adequate. Scope In: 10:03:16 AM Scope Withdrawal Time 0 hours 9 minutes 1 second Scope Out: 10:30:59 AM Total Procedure Duration Time 0 hours 27 minutes 43 seconds Findings: The perianal and digital rectal examinations were normal. Multiple small and large-mouthed diverticula were found in the recto-sigmoid colon and sigmoid colon. There was narrowing of the colon in association with the diverticular opening. There was evidence of diverticular spasm. Erythema was seen in association with the diverticular opening. The exam was otherwise without abnormality on direct and retroflexion views. Impression: - Severe diverticulosis in the recto-sigmoid colon and in the sigmoid colon. There was narrowing of the colon in association with the diverticular opening. There was evidence of diverticular spasm. Erythema was seen in association with the diverticular opening. - The examination was otherwise normal on direct and retroflexion views. - No specimens collected. Recommendation: - Discharge patient to home. - Resume previous diet. - Cipro (ciprofloxacin) 500 mg PO BID for 7 days. - Flagyl (metronidazole) 500 mg PO TID for 7 weeks. - No repeat colonoscopy due to age. - Continue present medications. Procedure Code(s): --- Professional --- G0121, Colorectal cancer screening; colonoscopy on individual not meeting criteria for high risk CPT copyright 2017 [employer]. All rights reserved. The codes documented in this report are preliminary and upon technical project manager review may be revised to meet current compliance requirements. Gerardo Quesada DO 08/25/2022 10:44:59 AM This report has been signed electronically. Number of Addenda: 0 Note Initiated On: 08/25/2022 10:01 AM
--- NOTE | 2022-08-25 10:46 | OP.CCLET_ITS ---
08/25/2022 Qian Colindres [address] [place] [address] Re : Colonoscopy procedure for Chelsy Tran Dear Dr. Colindres This procedure was performed on Thursday, August 25, 2022. My impressions and recommendations are as follows: Impressions : - Severe diverticulosis in the recto-sigmoid colon and in the sigmoid colon. There was narrowing of the colon in association with the diverticular opening. There was evidence of diverticular spasm. Erythema was seen in association with the diverticular opening. - The examination was otherwise normal on direct and retroflexion views. - No specimens collected. Recommendations : - Discharge patient to home. - Resume previous diet. - Cipro (ciprofloxacin) 500 mg PO BID for 7 days. - Flagyl (metronidazole) 500 mg PO TID for 7 weeks. - No repeat colonoscopy due to age. - Continue present medications. My findings are described in the full procedure note, which is enclosed. If I can be of further assistance, please feel free to contact me at . Sincerely, Gerardo Quesada, 08/25/2022 10:44:59 AM This report has been signed electronically.
[2022-08-25] MEDS: Ondansetron ODT 4 MG Tablet PO (11:45)
--- NOTE | 2022-08-25 12:28 | SUR.PHASEII ---
patient states she is still nauseated and wants to speak to dr Bailey. Dr bailey spoke with patient and ordered compazine po. ok to dc patient home
[2022-08-25] MEDS: proCHLORPERazine 5 MG Tablet 10 MG PO (13:09)
== END 2022-08-25 13:58 | disposition home or self-care (01) ==
LOC: EN 08:48 → AC 08:50
PROVIDERS: PCP Internal Medicine; Referring Provider Internal Medicine; Visit Provider Internal Medicine Gastroenterology
PROC: 0DJD8ZZ Inspection of Lower Intestinal Tract, Via Natural or Artificial Opening Endoscopic (ICD-10-PCS; CPT 45378; principal; 2022-08-25 09:55)
DX: K57.30 Diverticulosis of large intestine without perforation or abscess without bleeding (principal); K21.00 Gastro-esophageal reflux disease with esophagitis, without bleeding; K31.89 Other diseases of stomach and duodenum; K29.70 Gastritis, unspecified, without bleeding; F41.9 Anxiety disorder, unspecified; Z79.899 Other long term (current) drug therapy; Z87.891 Personal history of nicotine dependence
CPT/HCPCS: 45378; 43239; 88305; 88313; J7120; J2405

== ENCOUNTER → 2022-09-30 | Outpatient (CLI) | payer MEDICARE, OTHER, SELFPAY ==
--- NOTE | 2022-09-30 16:49 | CT_ITS ---
STUDY: CT ABDOMEN AND PELVIS WITH CONTRAST REASON FOR EXAM: Female, 82 years old. ? Diverticulitis. Chronic abdominal pain. RADIATION DOSAGE (If Supplied By Facility): CTDIvol = ( 13.86 ) mGy, DLP = ( 337.79 ) mGycm TECHNIQUE: Transaxial images were obtained from the dome of the diaphragm to the symphysis pubis with oral contrast. IV 100mL Isovue-300 was administered. Sagittal and coronal images were reconstructed. Individualized dose optimization techniques were used for this CT. COMPARISON: Comparison is made with prior study dated May 19, 2022. FINDINGS: There is evidence of bilateral breast prostheses. The visualized lung bases are unremarkable. The visualized portions of the heart are within normal limits. Normal liver. There are surgical clips in the gallbladder fossa consistent with a prior cholecystectomy. Normal spleen. Normal pancreas. Normal bilateral adrenal glands. Normal right kidney. Normal left kidney. Normal visualized stomach. Normal small intestine. There are multiple colonic diverticula consistent with diverticulosis. Moderate amount of fecal material is seen throughout the colon. There is non-visualization of the appendix. There is scattered atherosclerotic calcification of the abdominal aorta, without a demonstrated aneurysm. Normal inferior vena cava. Normal retroperitoneum. Normal urinary bladder. There is absence of the uterus consistent with a prior hysterectomy. Normal abdominal wall. There are diffuse degenerative changes of the visualized lumbar spine. Loss of the normal lumbar lordosis. CT/Abdomen/Pelvis WITH Contrast IMPRESSION: Sigmoid diverticulosis. Status post cholecystectomy and hysterectomy. No acute abnormality is seen. Electronically Signed: Ge Pulido MD at 14:35 EDT ,
[2022-09-30 17:21] LABS: CREATININE FINGERSTICK < 0.9 mg/dL (0.55-1.02); EGFR FINGERSTICK > 60.0000 mL/min (>60)
== END | disposition home or self-care (01) ==
LOC: CT 16:48
PROVIDERS: PCP Internal Medicine; Referring Provider Internal Medicine Gastroenterology; Visit Provider Internal Medicine Gastroenterology
DX: K57.92 Diverticulitis of intestine, part unspecified, without perforation or abscess without bleeding (principal)
CPT/HCPCS: 74177; Q9967

== ENCOUNTER 2022-11-12 10:47 | Emergency (ER) | payer MEDICARE, OTHER, SELFPAY ==
[2022-11-12 10:48] VITALS: BP 139/114; PULSE 98; RESP 14; TEMP 36.6; O2SAT 97
--- NOTE | 2022-11-12 11:10 | EX.ED.DYSGE1 ---
HPI History of Present Illness Chief Complaint: Numb/Ting Informant: patient Onset/Context/Timing Onset: Days (3 days) Narrative Narrative: Patient presents with 3-day history of left facial numbness and tingling along with left arm numbness and tingling. She has not had any arm weakness. No known history of stroke or TIA. She called her PCPs office today and was directed to the emergency room. [facility] Medical History (Updated 11/12/22 @ 18:[address] Odette Dobbins MD) Abdominal bloating Abdominal pain Acute depression Acute gastritis Anxiety Asthma Chronic constipation Diarrhea Diverticulosis Former smoker Gastroesophageal reflux disease GERD (gastroesophageal reflux disease) Hemorrhoids History of bronchitis IBS (irritable bowel syndrome) Leg cramps Leg edema Nausea Non-smoker Wears dentures Wears glasses Wears partial dentures Home Medications trazodone 100 mg tablet 50 - 100 mg PO QHS sleep 04/21/19 [History Last Taken 11/11/22] ondansetron 4 mg disintegrating tablet 4 mg PO Q8H PRN nausea and vomiting #10 tabs 05/19/22 [Rx Last Taken 2 Days Ago ~11/10/22] gabapentin 300 mg capsule 300 - 600 mg PO DAILY 08/19/22 [History Last Taken 11/11/22] pantoprazole 40 mg tablet,delayed release 40 mg PO DAILY #30 tabs 08/25/22 [Rx Last Taken 11/11/22] prtlur-hcecuemo-zypfxdi 24,000-76,000-120,000 unit capsule,delayed rel (Creon) 1 cap PO BID 11/12/22 [History Last Taken 11/11/22] Allergy/AdvReac Type Severity Reaction Status Date / Time cephalexin Allergy Intermediate Other Verified 11/12/22 10:48 nitrofurantoin Allergy Intermediate Other Verified 11/12/22 10:48 [From Macrobid] prednisone Allergy Intermediate Other Verified 11/12/22 10:48 Sulfa (Sulfonamide Allergy Intermediate Other Verified 11/12/22 10:48 Antibiotics) Penicillins Allergy Vomiting Verified 11/12/22 10:48 MYOCIN Allergy Nausea Uncoded 11/12/22 10:48 Family History Father , 57 Heart disease Myocardial infarction Mother Alzheimer disease Surgical History (Updated 11/12/22 @ 11:[address] Odette Dobbins MD) History of appendectomy History of breast implant History of breast implant removal History of cholecystectomy History of colonoscopy (~2010) History of esophagogastroduodenoscopy (EGD) (~2013) History of hysterectomy with oophorectomy History of tonsillectomy and adenoidectomy Social History Smoking Status: Former smoker alcohol intake: never substance use type: does not use ROS ROS ED Constitutional Constitutional ED: Denies chills or fever(s) Eyes Eyes: Denies change in vision or discharge from eye(s) ENT ENT ED: Denies discharge from eye(s), rhinorrhea or sore throat Cardiovascular Cardiovascular: Denies chest pain or palpitations Respiratory/Chest Respiratory/Chest: Denies cough or dyspnea Gastrointestinal Gastrointestinal: Reports nausea; Denies abdominal pain, diarrhea or vomiting Genitourinary Genitourinary ED: Denies dysuria Musculoskeletal Musculoskeletal: Denies back pain or extremity pain Integumentary Denies Abrasions or rash Neurologic Neurologic: Reports paresthesias; Denies headache(s) or weakness Psychiatric Psychiatric: Denies anxiety or depression Allergic/Immunologic Allergic/Immunologic ED: Denies lip swelling or urticaria EXAM Physical Exam Const Vital Signs: 11/12/22 10:48 11/12/22 12:47 11/12/22 14:00 Temperature 98 F Temperature Source Temporal Pulse Rate 98 108 H Respiratory Rate 14 26 H 16 Blood Pressure 139/114 H 147/81 H Blood Pressure Mean 122 103 Pulse Ox 97 97 Oxygen Delivery Method Room Air Room Air 11/12/22 16:00 Temperature Temperature Source Pulse Rate Respiratory Rate 21 H Blood Pressure Blood Pressure Mean Pulse Ox Oxygen Delivery Method Positive well nourished and well developed General Appearance ED: well developed HEENT Reports normocephalic and head/scalp atraumatic Eyes PERRL and EOMs intact bilaterally Neck supple Chest Wall inspection of chest normal and palpation of chest normal Resp normal respiratory effort and clear to auscultation bilaterally Cardio regular rate and regular rhythm GI non-tender Palpation: soft Extremity normal to inspection Neuro oriented x3 Neuro Narrative: NIH equals 1 for decreased sensation to light touch in the left face and left arm. Sensorium / Orientation: alert Motor Exam: strength 5/5 throughout Psych mental status grossly normal Skin no rashes or lesions noted MDM MDM MDM Narrative Medical decision making narrative: Labwork obtained to evaluate for leukocytosis, anemia, and electrolyte derangement. Nursing staff was able to obtain the blood work but unable to establish an IV line. After multiple attempts patient declines any further attempts for IV placement. Noncontrast head CT is obtained. EKG obtained to evaluate for cardiac arrhythmia/ischemia. Lab Data Attestation: I reviewed the patient's lab results. Labs: Laboratory Results - last 24 hr 11/12/22 11/12/22 12:10 12:10 WBC 8.6 RBC 4.53 Hgb 14.6 Hct 43.8 MCV 96.7 MCH 32.2 H MCHC 33.3 RDW Std Deviation 47.9 H RDW Coeff of Ester 13.3 Plt Count MPV 9.1 Immature Gran % (Auto) 0.300 Neut % (Auto) 73.1 H Lymph % (Auto) 14.5 L [place] % (Auto) 10.6 H Eos % (Auto) 0.9 Baso % (Auto) 0.6 Absolute Neuts (auto) 6.3 Absolute Lymphs (auto) 1.25 Nucleated RBC % 0 Differential Comment SCANNED Platelet Estimate ADEQUATE Sodium 137 Potassium 3.9 Chloride 105 Carbon Dioxide 24.0 Anion Gap 8 BUN 32 H Creatinine 0.82 Estim Creat Clear Calc 42.67 Est GFR (MDRD) Af Amer 86 Est GFR (MDRD) Non-Af 71 BUN/Creatinine Ratio 39.2 H Glucose 97 Calcium 9.2 Troponin I High Sens 4 Radiography Diagnostic Testing: Clinical Impression(s) from Imaging Studies Brain CT 11/12/22 12:53 IMPRESSION: No acute intracranial process identified. Chronic involutional and white matter changes. Electronically Signed: Ness Mendieta MD at 14:29 EDT , Brain MRI 11/12/22 15:23 IMPRESSION: Mild atrophy and minor periventricular white matter ischemic change without evidence for acute infarct.. Electronically Signed: Wilfredo Davalos MD at 18:18 EDT , EKG Initial EKG: Attestation: I personally reviewed and interpreted this EKG as follows: Interpretation: Sinus Rhythm (Sinus 85 with no acute ischemia.) Treatment and Re-Evaluation :: CBC and chemistry studies are unremarkable. Troponin is normal at 4. EKG is sinus rhythm with no acute ischemia. Noncontrast head CT reveals no evidence of acute process. Chronic involutional and white matter changes are noted. Given the patient has had 3 days of symptoms I did elect to go ahead and perform a noncontrast MRI. This returns with no evidence of acute infarct. In light of this patient will be able to be discharged home. We discussed possibility of pinched nerve causing her symptoms as it does wrap around the left side of her neck onto her face and her left arm. She has no muscular weakness. She is to follow with her primary care physician. Return instructions were given. Discharge Plan Triage Chief Complaint: Numb/Ting ED Provider: Odette Dobbins Dx/Rx/DC Orders Clinical Impression: Paresthesias Instructions: ED Paraesthesias Prescriptions: No Action trazodone 100 MG tablet 50 - 100 mg PO QHS ondansetron 4 mg tablet,disintegrating 4 mg PO Q8H PRN (Reason: nausea and vomiting) Qty: 10 0RF gabapentin 300 mg capsule 300 - 600 mg PO DAILY Creon 24,000-76,000 -120,000 unit capsule,delayed release(DR/EC) 1 cap PO BID Rx Instructions: administer with meals and/or snacks pantoprazole 40 mg tablet,delayed release (DR/EC) 40 mg PO DAILY Qty: 30 3RF Primary Care Provider: Qian Colindres Referrals: Qian Colindres MD [Primary Care Provider] - 3-5 Days Disposition Disposition: Home, Self Care
[2022-11-12 12:27] LABS: Absolute Lymphocyte Count 1.25 X10^3/uL (0.83-4.51); Absolute Neutrophil Count 6.3 X10^3/uL (2.0-7.7); Basophil# 0.05 X10^3/uL; Basophil% 0.6 % (0-1); Eosinophil# 0.08 X10^3/uL; Eosinophils% 0.9 % (0-5); Hematocrit 43.8 % (37-47); Hemoglobin 14.6 g/dL (12.0-15.0); Lymphocyte # 1.25 X10^3/ul (0.83-4.51); Lymphocyte % 14.5 % (19-41); Mean Corp Hgb Conc 33.3 g/dL (32-36); Mean Corpuscular Hgb 32.2 pg (27.0-32.0); Mean Corpuscular Volume 96.7 fL (81-99); Mean Platelet Vol. 9.1 fl (6.2-12.0); Monocyte# 0.91 X10^3/uL; Monocyte% 10.6 % (0-10); NRBC Flagged by Analyzer 0 % (0-5); Neutrophil % 73.1 % (47-70); POSITIVE COUNT YES; RBC Distribution Width CV 13.3 % (11.6-14.6); RBC Distribution Width SD 47.9 fl (35.1-43.9); Red Blood Count 4.53 M/mm3 (4.2-5.4); White Blood Count 8.6 K/mm3 (4.4-11.0)
[2022-11-12 12:40] LABS: Anion Gap 8 (5-15); BUN 32 mg/dL (7-18); BUN/Creat Ratio 39.2 RATIO (10-20); Calcium,Total 9.2 mg/dL (8.5-10.1); Chloride 105 mmol/L (98-107); Creatinine, Serum 0.82 mg/dL (0.55-1.02); EST Glomerular Filtration Rate 71 mL/min (>60); Est Glom Filt Rate - Afr Amer 86 mL/min (>60); Estimated Creatinine Clearance 42.67 ml/min; Glucose 97 mg/dL (74-106); Potassium 3.9 mmol/L (3.5-5.1); Sodium Level 137 mmol/L (136-145); Troponin-I HS 4 pg/mL (3.0-54.0)
[2022-11-12 12:47] VITALS: BP 147/81; PULSE 108; RESP 26; O2SAT 97
[2022-11-12 12:47] LABS: Differential Indicated SCAN CRITERIA MET
[2022-11-12 12:48] LABS: Differential Comment SCANNED; Platelet Estimate ADEQUATE (ADEQ)
--- NOTE | 2022-11-12 12:53 | CT_ITS ---
HISTORY: paresthesias. TECHNIQUE: Multiple axial images were obtained of the head without intravenous contrast. A radiation dose optimization technique was used for this scan. 230 images. COMPARISON: 05/25/2022. FINDINGS: BRAIN PARENCHYMA: Multiple foci and zones of low attenuation in the bilateral cerebral white matter compatible with chronic small vessel ischemic gliosis. No acute intra-axial hemorrhage identified. CSF SPACES: Generalized volume loss. No midline shift or other significant mass effect. No acute extra-axial hemorrhage seen. OTHER: Intact calvarium. No significant air fluid levels in the paranasal sinuses or mastoid air cells. Unremarkable orbits. CT/Brain/Head without Contrast IMPRESSION: No acute intracranial process identified. Chronic involutional and white matter changes. Electronically Signed: Ness Mendieta MD at 14:29 EDT ,
[2022-11-12] MEDS: Ondansetron ODT 4 MG Tablet PO (13:21)
[2022-11-12 14:00] VITALS: RESP 16
--- NOTE | 2022-11-12 14:46 | CM.ED ---
Social Work SW assisted patient back into bed and placed her rail up. Patient was concerned about falling out of bed without rail. SW provided emotional support. Maria Luz David PROJECT LEAD, HAT FORMING MACHINE FEEDER
--- NOTE | 2022-11-12 15:23 | MRI_ITS ---
STUDY: MRI BRAIN WITHOUT CONTRAST REASON FOR EXAM: Female, 82 years old. paresthesias -- left facial and LUE paresthesias. NIH=1 TECHNIQUE: Standardized multiplanar fat and water weighted pulse sequences were obtained. COMPARISON: CT of the brain November 12, 2022 FINDINGS: Mild atrophy and minor periventricular white matter ischemic change without mass effect or restricted diffusion.. There is disproportionate dilatation of the lateral ventricles with respect cortical sulci raising question of communicating hydrocephalus or NPH. Normal bilateral basal ganglia. Normal thalami. There is no extra-axial fluid accumulation. Normal flow voids within the major intracranial circulation suggesting patency by spin echo criteria. Normal sella turcica, pituitary gland, infundibular stalk, optic chiasm and hypothalamus. Normal tectal plate and pineal gland. Normal midbrain, devon and medulla. Normal cerebellum. Normal basal cisterns. Normal bilateral temporal bones. Normal bilateral internal auditory canals. No demonstrated orbital abnormality, within the constraints of a routine brain study. Normal visualized paranasal sinuses. Normal calvarium and skull base. Normal visualized soft tissue structures. Normal visualized upper cervical spine. MRI/Brain without Contrast IMPRESSION: Mild atrophy and minor periventricular white matter ischemic change without evidence for acute infarct.. Electronically Signed: Wilfredo Davalos MD at 18:18 EDT ,
[2022-11-12 16:00] VITALS: RESP 21
== END 2022-11-12 19:10 | disposition home or self-care (01) ==
PROVIDERS: Emergency Provider Emergency Medicine; PCP Internal Medicine; Visit Provider Emergency Medicine
DX: R20.2 Paresthesia of skin (principal); Z87.891 Personal history of nicotine dependence
CPT/HCPCS: 70450; 70551; 80048; 84484; 85025; 93005; 99283; J7030; J2405

== ENCOUNTER 2023-04-25 14:58 | Observation (INO) | payer MEDICARE, OTHER, SELFPAY ==
[2023-04-25 14:59] VITALS: BP 116/72; PULSE 88; RESP 16; TEMP 36.2; O2SAT 97; BMI 18.3
--- NOTE | 2023-04-25 15:37 | ED.VIS.DYS ---
HPI History of Present Illness Chief Complaint: Shortness of Breath Narrative Narrative: 82-year-old female who denies significant past medical history presents with cough and shortness of breath that she has had for a week and a half. She relates history that her symptoms began approximately a week and a half ago, when she went to see her primary care provider, Dr. Colindres, who wrote her prescription for ciprofloxacin which she completed, and the strongest cough medicine. She states that she was told that if she was not seeing improvement that she might need to come to the emergency department. Today she went to urgent care who directed her here for further evaluation for her continuing shortness of breath. She currently denies any fever or chills but states she coughed up a lot of phlegm over the last few days. She continues to cough. No rhinorrhea or nasal congestion. [facility] Medical History Abdominal bloating Abdominal pain Acute depression Acute gastritis Anxiety Asthma Chronic constipation Diarrhea Diverticulosis Former smoker Gastroesophageal reflux disease GERD (gastroesophageal reflux disease) Hemorrhoids History of bronchitis IBS (irritable bowel syndrome) Leg cramps Leg edema Nausea Non-smoker Wears dentures Wears glasses Wears partial dentures Home Medications trazodone 100 mg tablet 50 - 100 mg PO QHS sleep 04/21/19 [History Last Taken 11/11/22] ondansetron 4 mg disintegrating tablet 4 mg PO Q8H PRN nausea and vomiting #10 tabs 05/19/22 [Rx Last Taken 2 Days Ago ~11/10/22] gabapentin 300 mg capsule 300 - 600 mg PO DAILY 08/19/22 [History Last Taken 11/11/22] pantoprazole 40 mg tablet,delayed release 40 mg PO DAILY #30 tabs 08/25/22 [Rx Last Taken 11/11/22] nklnxc-kziaruyi-kinpemv 24,000-76,000-120,000 unit capsule,delayed rel (Creon) 1 cap PO BID 11/12/22 [History Last Taken 11/11/22] Allergy/AdvReac Type Severity Reaction Status Date / Time cephalexin Allergy Intermediate Other Verified 11/12/22 10:48 nitrofurantoin Allergy Intermediate Other Verified 11/12/22 10:48 [From Macrobid] prednisone Allergy Intermediate Other Verified 11/12/22 10:48 Sulfa (Sulfonamide Allergy Intermediate Other Verified 11/12/22 10:48 Antibiotics) erythromycin base Allergy Nausea Verified 01/04/23 11:13 [From E-Mycin] Penicillins Allergy Vomiting Verified 11/12/22 10:48 Family History Father , 57 Heart disease Myocardial infarction Mother Alzheimer disease Surgical History History of appendectomy History of breast implant History of breast implant removal History of cholecystectomy History of colonoscopy (~2010) History of esophagogastroduodenoscopy (EGD) (~2013) History of hysterectomy with oophorectomy History of tonsillectomy and adenoidectomy Social History Smoking Status: Former smoker alcohol intake: never substance use type: does not use ROS ROS ED ROS Narrative Constitutional: No fever, no chills. HEENT: No sore throat. No neck pain. No loss of vision. No rhinorrhea. Cardiovascular: Positive chest tightness/chest pain. No palpitations. No pedal edema. Respiratory: Positive occasionally productive cough, positive shortness of breath. Abdominal: No abdominal pain. No nausea. No vomiting. Genitourinary: No dysuria. No hematuria. Musculoskeletal: No myalgias. No arthralgias. Neurologic: No headaches. No dizziness. No lightheadedness. Skin: No rash. No change in color. Psychiatric: No depression. No anxiety. EXAM Physical Exam Narrative Exam Narrative: Afebrile. Vital signs noted. HEENT: Normocephalic. Atraumatic. PERRL, EOMI. Neck soft and supple. No point tenderness or step off. Cardiovascular: Regular rate and rhythm. No murmurs, rubs, or gallops appreciated. Respiratory: No tachypnea. Lungs clear to auscultation bilaterally. No wheezing. Dry cough on examination. Moving a good amount of air. Speaking in full sentences. Gastrointestinal: Abdomen soft, nontender, with normoactive bowel sounds. No rebound or guarding. Neurological: Awake. Alert. Nonfocal, nonlateralizing. Skin: No rash. Normal color. No pallor. Musculoskeletal: No pedal edema. Full range of motion extremities. Const Vital Signs: 12/04/23 14:59 04/25/23 15:50 04/25/23 15:50 Temperature 97.2 F L Temperature Source Temporal Pulse Rate 88 76 Respiratory Rate 16 18 Respiratory Pattern Blood Pressure 116/72 Blood Pressure Mean 86 Pulse Ox 97 97 Oxygen Delivery Method Room Air Room Air 04/25/23 16:09 04/25/23 16:49 Temperature Temperature Source Pulse Rate 90 Respiratory Rate Respiratory Pattern Tachypnea Blood Pressure 147/72 H Blood Pressure Mean Pulse Ox Oxygen Delivery Method MDM MDM MDM Narrative Medical decision making narrative: has already been treated with a course of antibiotics. In the differential diagnosis is bronchitis versus pneumonia versus pneumothorax. I have low suspicion for pneumothorax because the history and physical does not support this. Given her chest tightness, I do feel that EKG and chest x-ray should be obtained along with laboratory work. I do feel a single troponin would be sufficient as her symptoms have been ongoing for a week and a half. I do not see the utility in obtaining respiratory swabs because she is already 10 days into her symptoms. EKG was obtained and interpreted by myself independently as normal sinus rhythm at 80 bpm with sinus arrhythmia but no acute ST changes. No STEMI. I do feel that cardiac ischemia is partially ruled out, at least STEMI. I will await her single troponin. I reviewed her laboratory work and she has a normal white count of 6.1, hemoglobin 13.9, hematocrit 43.6, platelet count normal at 224. We will 135 which I think is nonspecific, normal potassium of 4.1, BUN elevated at 30 with normal creatinine of 0.90. Her glucose is appropriately elevated at 97 with a normal anion gap of 8. BNP is normal at 26.2 and high-sensitivity troponin is 5. Chest x-ray in 2 views interpreted by myself independently shows no evidence of an acute process, no pneumonia. I reviewed the radiology report which confirms my independent interpretation. However, during her emergency department stay, she developed 9 out of 10 chest pain and pressure. Upon repeat examination, she is clutching her chest saying that she is having pain and pressure mainly on the left side of her chest. Repeat EKG will be obtained. I will obtain another troponin, and additionally a CTA to help rule out dissection or pulmonary embolism. Given her advanced age, and that she developed increasing chest pressure, she will be given aspirin and nitroglycerin, and I will discuss patient with the hospitalist for observation. Patient is in stable condition. Repeat EKG was obtained and interpreted by myself independently as normal sinus rhythm at 88 bpm without ectopy or acute ST changes. No significant change from previous. Upon repeat examination at approximately 1800, her pain has improved after nitroglycerin. I reviewed the CTA report which shows no evidence of pulmonary embolism or dissection. History & Record Review Discussion w/independent historian: Patient Additional record(s) reviewed:: Prior ED visit Lab Data Attestation: I reviewed the patient's lab results. Labs: Laboratory Results - last 24 hr 04/25/23 16:00 WBC 6.1 RBC 4.40 Hgb 13.9 Hct 43.6 MCV 99.1 H MCH 31.6 MCHC 31.9 L RDW Std Deviation 46.2 H RDW Coeff of Ester 12.6 Plt Count 224 MPV 9.1 Immature Gran % (Auto) 0.300 Neut % (Auto) 66.7 Lymph % (Auto) 18.1 L [place] % (Auto) 13.5 H Eos % (Auto) 0.7 Baso % (Auto) 0.7 Absolute Neuts (auto) 4.1 Absolute Lymphs (auto) 1.10 Nucleated RBC % 0 Sodium 135 L Potassium 4.1 Chloride 102 Carbon Dioxide 25.0 Anion Gap 8 BUN 30 H Creatinine 0.90 Estim Creat Clear Calc 37.44 Est GFR (MDRD) Af Amer 76 Est GFR (MDRD) Non-Af 63 BUN/Creatinine Ratio 33.2 H Glucose 97 Calcium 8.9 Troponin I High Sens 5 B-Natriuretic Peptide 26.2 Radiography Diagnostic Testing: Clinical Impression(s) from Imaging Studies Chest X-Ray 04/25/23 16:05 IMPRESSION: No radiographic evidence of acute cardiopulmonary disease. Electronically Signed: Mack Bradley MD at 16:29 EST , Chest CTA 04/25/23 17:00 IMPRESSION: Negative CTA chest. Electronically Signed: Mack Bradley MD at 17:37 EST , Management Discussion w/another healthcare provider: Hospitalist (Dr. Castanon) Discharge Plan Dx/Rx/DC Orders Clinical Impression: SOB (shortness of breath), Anxiety, Chest pain Disposition Disposition: Acute Care Hospital [facility]
[2023-04-25] MEDS: Albuterol 2.5 MG/3 ML VIAL.NEB. INHALATION (15:48)
[2023-04-25 15:50] VITALS: PULSE 76; RESP 18; O2SAT 97
--- NOTE | 2023-04-25 16:05 | RAD_ITS ---
EXAM: XR CHEST, 2 VIEWS CLINICAL INDICATION: Cough, shortness of breath TECHNIQUE: Frontal and lateral views of the chest. COMPARISON: 05/25/2022 FINDINGS: LUNGS AND PLEURAL SPACES: Unremarkable. No consolidation or edema. No pneumothorax. No effusion. HEART: Unremarkable. Cardiac silhouette not enlarged. MEDIASTINUM: Central airways and mediastinal contour are unremarkable. BONES/JOINTS: Unremarkable. No acute fracture. SOFT TISSUES: Unremarkable. RAD/Chest PA and Lateral IMPRESSION: No radiographic evidence of acute cardiopulmonary disease. Electronically Signed: Mack Bradley MD at 16:29 EST ,
[2023-04-25 16:14] LABS: Absolute Neutrophil Count 4.1 X10^3/uL (2.0-7.7); Basophil# 0.04 X10^3/uL; Basophil% 0.7 % (0-1); Eosinophil# 0.04 X10^3/uL; Eosinophils% 0.7 % (0-5); Hematocrit 43.6 % (37-47); Hemoglobin 13.9 g/dL (12.0-15.0); Lymphocyte % 18.1 % (19-41); Mean Corp Hgb Conc 31.9 g/dL (32-36); Mean Corpuscular Hgb 31.6 pg (27.0-32.0); Mean Corpuscular Volume 99.1 fL (81-99); Mean Platelet Vol. 9.1 fl (6.2-12.0); Monocyte# 0.82 X10^3/uL; Monocyte% 13.5 % (0-10); NRBC Flagged by Analyzer 0 % (0-5); Neutrophil # 4.06 X10^3/uL (2.7-7.7); Neutrophil % 66.7 % (47-70); Platelet Count 224 K/mm3 (150-450); RBC Distribution Width CV 12.6 % (11.6-14.6); RBC Distribution Width SD 46.2 fl (35.1-43.9); White Blood Count 6.1 K/mm3 (4.4-11.0)
[2023-04-25 16:28] LABS: Anion Gap 8 (5-15); BUN 30 mg/dL (7-18); BUN/Creat Ratio 33.2 RATIO (10-20); Calcium,Total 8.9 mg/dL (8.5-10.1); Chloride 102 mmol/L (98-107); EST Glomerular Filtration Rate 63 mL/min (>60); Est Glom Filt Rate - Afr Amer 76 mL/min (>60); Estimated Creatinine Clearance 37.44 ml/min; Glucose 97 mg/dL (74-106); Potassium 4.1 mmol/L (3.5-5.1); Sodium Level 135 mmol/L (136-145); Troponin-I HS 5 pg/mL (3.0-54.0)
[2023-04-25 16:33] LABS: BNP,B-Type NATRIURETIC PEPTIDE 26.2 pg/mL (0-100)
[2023-04-25] MEDS: Aspirin 81 MG TAB.CHEW 162 MG PO (16:47)
[2023-04-25 16:49] VITALS: BP 147/72; PULSE 90
[2023-04-25] MEDS: Nitroglycerin SL (ED/IMG/CATH) 0.4 MG TABLET SL (16:49)
--- NOTE | 2023-04-25 17:00 | CT_ITS ---
EXAM: CT ANGIOGRAPHY CHEST WITHOUT AND WITH INTRAVENOUS CONTRAST CLINICAL INDICATION: Chest Pain TECHNIQUE: Helically acquired angiography images were obtained of the chest without and with intravenous contrast. This CT exam was performed using one or more of the following dose reduction techniques: automated exposure control, adjustment of the mA and/or kV according to patient size, and/or use of iterative reconstruction technique. MIP reconstructed images were created and reviewed. CONTRAST: IV 100mL Isovue-370 COMPARISON: No relevant prior studies available. FINDINGS: PULMONARY ARTERIES: Unremarkable. Normal in caliber. No evidence of pulmonary embolism. AORTA: Unremarkable. Normal in caliber. No evidence of dissection. GREAT VESSELS OF AORTIC ARCH: Unremarkable. Normal in caliber. No evidence of dissection. LUNGS AND PLEURAL SPACES: Unremarkable. No mass. No consolidation or edema. No pleural effusion or thickening. No pneumothorax. HEART: Unremarkable. Heart size is normal. No pericardial effusion. No significant coronary artery calcifications. MEDIASTINUM: Unremarkable. No mediastinal or hilar adenopathy. Esophagus is unremarkable. No hiatal hernia. THYROID: Unremarkable. No thyroid lesions. BONES/JOINTS: Unremarkable. No suspicious lytic or blastic abnormality. CT/CTA Chest W/WO Contrast IMPRESSION: Negative CTA chest. Electronically Signed: Mack Bradley MD at 17:37 EST ,
[2023-04-25 18:15] VITALS: BP 115/56; PULSE 83; RESP 22; TEMP 36.6; O2SAT 96
--- NOTE | 2023-04-25 18:15 | HP.PCM.HOS_ITS ---
HPI - General General Date of Admission: 04/25/23 HPI Narrative TIFFANI MA, is a 82 F who presents to the hospital initially with complaints of shortness of breath for the last 10 days. During the work-up troponin was obtained which was normal at 5 and she has no cardiac risk factors other than a family history where her father at 58 from a heart attack. An initial BNP was also normal. EKG was unremarkable chest x-ray was normal and she is not behaving like she has an upper respiratory infection and its been 10 days. She states that she has taken ciprofloxacin as an outpatient by her PCP and a very strong cough medication. Today she went to urgent care and was told to come to the emergency room for evaluation. During her evaluation as everything was coming back normal she related to the ED physician that she was having severe chest pain that she rated as a 9 out of 10 that was going to her back. On my exam she indicated that the pain on palpation was identical to the pain she was feeling though she states that her chest pain is is improved currently. CTA of the chest was unremarkable for PE or aortic dissection. Throughout her ED stay she has not required any oxygen. To me she relates that she is also been having difficulty with swallowing and having white stuff in her mouth which she did not tell the ED physician about and she has not told her PCP about the white stuff but she states that she has been losing weight. She does appear very anxious bu t she denies any anxiety. [facility] Medical History (Updated 04/25/23 @ 19:28 by Ann Forbes) Abdominal bloating Abdominal pain Acute depression Acute gastritis Anxiety Asthma Chronic constipation Diarrhea Diverticulosis Former smoker Gastroesophageal reflux disease GERD (gastroesophageal reflux disease) GI bleed Hemorrhoids History of bronchitis IBS (irritable bowel syndrome) Leg cramps Leg edema Nausea Non-smoker Wears dentures Wears glasses Wears partial dentures Home Medications trazodone 100 mg tablet 50 - 100 mg PO QHS sleep 04/21/19 [History Last Taken 11/11/22] gabapentin 300 mg capsule 300 - 600 mg PO DAILY 08/19/22 [History Last Taken 11/11/22] Allergy/AdvReac Type Severity Reaction Status Date / Time cephalexin Allergy Intermediate Other Verified 11/12/22 10:48 nitrofurantoin Allergy Intermediate Other Verified 11/12/22 10:48 [From Macrobid] prednisone Allergy Intermediate Other Verified 11/12/22 10:48 Sulfa (Sulfonamide Allergy Intermediate Other Verified 11/12/22 10:48 Antibiotics) erythromycin base Allergy Nausea Verified 01/04/23 11:13 [From E-Mycin] Penicillins Allergy Vomiting Verified 11/12/22 10:48 Family History Father , 57 Heart disease Myocardial infarction Mother Alzheimer disease Surgical History History of appendectomy History of breast implant History of breast implant removal History of cholecystectomy History of colonoscopy (~2010) History of esophagogastroduodenoscopy (EGD) (~2013) History of hysterectomy with oophorectomy History of tonsillectomy and adenoidectomy Social History Smoking Status: Former smoker alcohol intake: never substance use type: does not use ROS Constitutional Constitutional: Denies chills, fatigue, fever(s) or malaise Eyes Eyes: Denies blurry vision ENT HEENT: Denies headache(s) or nasal discharge Cardiovascular Cardiovascular: Reports chest pain; Denies dyspnea on exertion or syncope Respiratory/Chest Respiratory/Chest: Reports cough, shortness of breath at rest and shortness of breath with exertion Gastrointestinal Gastrointestinal: Reports dysphagia; Denies constipation, diarrhea, nausea or vomiting Genitourinary Genitourinary: Denies dysuria Neurologic Neurologic: Denies focal weakness, numbness or tremor(s) Psychiatric Psychiatric: Denies anxiety or depression Vital Signs Vital Signs Vital Signs: 04/25/23 14:59 04/25/23 15:50 04/25/23 15:50 Temperature 97.2 F L Temperature Source Temporal Pulse Rate 88 76 Respiratory Rate 16 18 Respiratory Pattern Blood Pressure 116/72 Blood Pressure Mean 86 Pulse Ox 97 97 Oxygen Delivery Method Room Air Room Air 04/25/23 16:09 04/25/23 16:49 Temperature Temperature Source Pulse Rate 90 Respiratory Rate Respiratory Pattern Tachypnea Blood Pressure 147/72 H Blood Pressure Mean Pulse Ox Oxygen Delivery Method Weight Weight: 110 lb 6.4 oz Body Mass Index (BMI) 18.3 Physical Exam Narrative General: Alert, Oriented x3, Cooperative, anxious HEENT: Atraumatic, PERRLA, EOMI, Normocephalic Oral: Dry mucosa, no thrush noted Neck: Supple, No JVD Lungs: Diminished, Normal air movement, No rhonchi, No wheeze, No rales Cardiovascular: Regular rate, Regular Rhythm, Normal S1, Normal S2, No murmurs Abdomen: Soft, Non Tender, Non-Distended, No Hepato-splenomegaly Extremities: No edema, Capillary Refill Less than 3 Seconds Skin: No rashes, No breakdown Musculoskeletal: No Tenderness to Palpation of Joints or Extremities Neurological: Cranial nerves II-XII grossly intact, Motor Exam 5/5 strength throughout, Sensory exam intact to light touch and pain Psych/Mental Status: Anxious Results Lab / Micro Data 04/25/23 16:00 04/25/23 16:00 Labs: Laboratory Results - last 24 hr 04/25/23 16:00: WBC 6.1, RBC 4.40, Hgb 13.9, Hct 43.6, MCV 99.1 H, MCH 31.6, MCHC 31.9 L, RDW Std Deviation 46.2 H, RDW Coeff of Ester 12.6, Plt Count 224, MPV 9.1, Immature Gran % (Auto) 0.300, Neut % (Auto) 66.7, Lymph % (Auto) 18.1 L, [place] % (Auto) 13.5 H, Eos % (Auto) 0.7, Baso % (Auto) 0.7, Absolute Neuts (auto) 4.1, Absolute Lymphs (auto) 1.10, Nucleated RBC % 0, Sodium 135 L, Potassium 4.1, Chloride 102, Carbon Dioxide 25.0, Anion Gap 8, BUN 30 H, Creatinine 0.90, Estim Creat Clear Calc 37.44, Est GFR (MDRD) Af Amer 76, Est GFR (MDRD) Non-Af 63, BUN/Creatinine Ratio 33.2 H, Glucose 97, Calcium 8.9, Troponin I High Sens 5, B-Natriuretic Peptide 26.2 Imagaing Radiology Impression Chest X-Ray 04/25/23 16:05 IMPRESSION: No radiographic evidence of acute cardiopulmonary disease. Electronically Signed: Mack Bradley MD at 16:29 EST , Chest CTA 04/25/23 17:00 IMPRESSION: Negative CTA chest. Electronically Signed: Mack Bradley MD at 17:37 EST , Assessment & Plan Assessment/Plan (1) Chest pain: (2) SOB (shortness of breath): PLAN: Plan 1. Chest pain ? Her heart score is low at 3 however she does appear to be very anxious and is clutching her chest during my evaluation ? We will obtain serial troponins ? We will order a stress test for tomorrow morning ? CTA was unremarkable and this does not appear to be cardiac ? Her shortness of breath at this point does not have any etiology she is not requiring any oxygen and all imaging and lab tests have been normal 2. Dysphagia with a history of GERD ? She did have an EGD in August of this year with mild esophagitis we will continue with her PPI ? Her presentation is very scattered so it is unclear as to what the primary source of all of her issues and discomfort is, therefore we will proceed with a cardiac work-up first ? There is no mention in GIs EGD from August without any significant esophageal findings other than the esophagitis ? My evaluation did not demonstrate any thrush however may benefit from a repeat EGD as an outpatient DVT: Ambulation 75 minutes was spent on direct patient care, including documentation as well as chart review and collaboration with colleagues Charges/Coding Visit Charges Inpatient E&M: 41412 Init Hosp L3
[2023-04-25 19:23] VITALS: BMI 17.9
[2023-04-25 20:00] VITALS: BP 122/74; PULSE 78; RESP 17; TEMP 36.8; O2SAT 96
[2023-04-25 20:47] LABS: Troponin-I HS 6 pg/mL (3.0-54.0)
[2023-04-25] MEDS: Benzonatate 100 MG Capsule PO (22:22)
[2023-04-25] MEDS: 0.9% Saline Lock 10 ML Syringe IV (22:26)
[2023-04-25 22:46] VITALS: BP 122/74; PULSE 78; RESP 17; TEMP 36.8; O2SAT 96
[2023-04-26] MEDS: traZODone 100 MG Tablet PO (00:09)
[2023-04-26] MEDS: Gabapentin 600 MG Tablet PO (00:09)
[2023-04-26 01:32] VITALS: BP 92/51; PULSE 74
[2023-04-26] MEDS: Nitroglycerin (INPATIENT USE) 0.4 MG TAB.SUBL SL (01:32)
[2023-04-26 01:42] VITALS: BP 92/51; PULSE 74; RESP 16; TEMP 36.7; O2SAT 94
[2023-04-26 04:46] VITALS: BP 101/59; PULSE 73; RESP 17; TEMP 36.6; O2SAT 95
[2023-04-26 06:53] LABS: Absolute Lymphocyte Count 1.88 X10^3/uL (0.83-4.51); Absolute Neutrophil Count 1.9 X10^3/uL (2.0-7.7); Basophil# 0.02 X10^3/uL; Basophil% 0.4 % (0-1); Eosinophil# 0.18 X10^3/uL; Eosinophils% 3.8 % (0-5); Hemoglobin 13.1 g/dL (12.0-15.0); Lymphocyte # 1.88 X10^3/ul (0.83-4.51); Lymphocyte % 39.6 % (19-41); Mean Corp Hgb Conc 33.6 g/dL (32-36); Mean Corpuscular Volume 95.1 fL (81-99); Mean Platelet Vol. 9.1 fl (6.2-12.0); Monocyte# 0.73 X10^3/uL; Monocyte% 15.4 % (0-10); NRBC Flagged by Analyzer 0 % (0-5); Neutrophil # 1.92 X10^3/uL (2.7-7.7); Neutrophil % 40.4 % (47-70); Platelet Count 257 K/mm3 (150-450); RBC Distribution Width CV 12.7 % (11.6-14.6); RBC Distribution Width SD 44.2 fl (35.1-43.9); White Blood Count 4.8 K/mm3 (4.4-11.0)
[2023-04-26 07:24] LABS: Anion Gap 3 (5-15); BUN 17 mg/dL (7-18); BUN/Creat Ratio 22.7 RATIO (10-20); Calcium,Total 8.5 mg/dL (8.5-10.1); Chloride 106 mmol/L (98-107); Creatinine, Serum 0.75 mg/dL (0.55-1.02); EST Glomerular Filtration Rate 78 mL/min (>60); Est Glom Filt Rate - Afr Amer 95 mL/min (>60); Estimated Creatinine Clearance 32.97 ml/min; Glucose 97 mg/dL (74-106); Potassium 3.7 mmol/L (3.5-5.1); Sodium Level 137 mmol/L (136-145)
--- NOTE | 2023-04-26 07:42 | PCM.PN.HOSP ---
Reason for Visit Reason for Visit: Diagnoses Shortness of breath (04/25/23) Chest pain, unspecified (04/25/23) Subjective Subjective Patient is an 82-year-old lady admitted with a week history of chest pain. Admitted to a monitored bed where patient is currently undergoing evaluation Objective Data Objective Data Vital Signs: Vital Signs Temp Pulse Resp BP Pulse Ox O2 Del Method 98 F 73 17 101/59 L 95 Room Air 04/26/23 04:46 04/26/23 04:46 04/26/23 04:46 04/26/23 04:46 04/26/23 04:46 04/26/23 04:46 Oxygen Delivery Method Room Air Weight: 49 kg Body Mass Index (BMI) 17.9 Intake & Output: Intake and Output for Last 24 Hours 04/24/23 04/25/23 04/26/23 23:59 23:59 23:59 Intake Total 100 / 100 Output Total 0 / 0 Balance 100 / 100 Lab / Micro Data 04/26/23 06:20 04/26/23 06:20 Labs: Laboratory Results - last 24 hr 04/25/23 16:00: WBC 6.1, RBC 4.40, Hgb 13.9, Hct 43.6, MCV 99.1 H, MCH 31.6, MCHC 31.9 L, RDW Std Deviation 46.2 H, RDW Coeff of Ester 12.6, Plt Count 224, MPV 9.1, Immature Gran % (Auto) 0.300, Neut % (Auto) 66.7, Lymph % (Auto) 18.1 L, [place] % (Auto) 13.5 H, Eos % (Auto) 0.7, Baso % (Auto) 0.7, Absolute Neuts (auto) 4.1, Absolute Lymphs (auto) 1.10, Nucleated RBC % 0, Sodium 135 L, Potassium 4.1, Chloride 102, Carbon Dioxide 25.0, Anion Gap 8, BUN 30 H, Creatinine 0.90, Estim Creat Clear Calc 37.44, Est GFR (MDRD) Af Amer 76, Est GFR (MDRD) Non-Af 63, BUN/Creatinine Ratio 33.2 H, Glucose 97, Calcium 8.9, Troponin I High Sens 5, B-Natriuretic Peptide 26.2 04/25/23 20:20: Troponin I High Sens 6 04/26/23 06:20: WBC 4.8, RBC 4.10 L, Hgb 13.1, Hct 39.0, MCV 95.1, MCH 32.0, MCHC 33.6 D, RDW Std Deviation 44.2 H, RDW Coeff of Ester 12.7, Plt Count 257, MPV 9.1, Immature Gran % (Auto) 0.400, Neut % (Auto) 40.4 L, Lymph % (Auto) 39.6, [place] % (Auto) 15.4 H, Eos % (Auto) 3.8, Baso % (Auto) 0.4, Absolute Neuts (auto) 1.9 L, Absolute Lymphs (auto) 1.88, Nucleated RBC % 0, Sodium 137, Potassium 3.7, Chloride 106, Carbon Dioxide 28.0, Anion Gap 3 L, BUN 17, Creatinine 0.75, Estim Creat Clear Calc 32.97, Est GFR (MDRD) Af Amer 95, Est GFR (MDRD) Non-Af 78, BUN/Creatinine Ratio 22.7 H, Glucose 97, Calcium 8.5 Radiography Diagnostic Testing: Radiology Impression Chest X-Ray 04/25/23 16:05 IMPRESSION: No radiographic evidence of acute cardiopulmonary disease. Electronically Signed: Mack Bradley MD at 16:29 EST , Chest CTA 04/25/23 17:00 IMPRESSION: Negative CTA chest. Electronically Signed: Mack Bradley MD at 17:37 EST , Physical Exam Narrative GENERAL: cooperative HEENT: Atraumatic; normocephalic EYES; Anicteric, Normal Conjunctiva NECK; supple, normal thyroid, RESPIRATORY: Diminished to auscultation CARDIOVASCULAR: Regular S1 S2, GI: soft, normoactive bowel sounds, : No Renal angle tenderness; EXTREMITIES: No edema, no clubbing, MUSCULOSKELETAL: no muscle wasting NEURO: Awake; no lateralizing signs. SKIN: No Rash PSYCH; Flat affect Assessment & Plan Assessment/Plan (1) Chest pain: (2) SOB (shortness of breath): PLAN: Plan Patient is an 82-year-old lady admitted with a week history of chest pain. Admitted to a monitored bed where patient is currently undergoing evaluation 1. Chest pain ? Admitted to monitored bed serial cardiac enzymes so far negative to date patient to complete workup with a nuclear stress test 2. History of esophagitis ? Based on EGD performed on 09/09/2022 patient is on PPI continue. Patient has significant nausea and vomiting added Zofran as needed 3. DVT prophylaxis ? SC Lovenox Time spent in the patient's overall evaluation,decision-making process, review of diagnostic data, adjustment of management, discussion with other providers, nursing nursing and ancillary staff involved in patient's care documentation, 40 Minutes Charges/Coding Visit Charges Inpatient E&M: 13789 Subs Hosp L2
[2023-04-26 10:15] VITALS: BP 94/83; PULSE 75; RESP 18; TEMP 36.9; O2SAT 96
[2023-04-26] MEDS: Pantoprazole Sodium 40 MG Tablet PO (10:19)
[2023-04-26] MEDS: 0.9% Saline Lock 10 ML Syringe IV (11:56)
[2023-04-26] MEDS: Ondansetron 4 MG/2 ML Vial IV (11:56)
--- NOTE | 2023-04-26 13:43 | CASEMGMT ---
Per nursing admission questions patient does not have a Healthcare Power of Glass Cut Off Tender or Healthcare Living Will and patient is not interested in documents. Estrella CASH
[2023-04-26 14:22] VITALS: BP 108/90; PULSE 74; RESP 18; TEMP 36.4; O2SAT 97
--- NOTE | 2023-04-26 15:18 | STRESSREP ---
Stress Test Report Date: 04/26/2023 Procedure: Pharmacologic stress nuclear imaging study Indications: Chest pain Consent: Per the patient Procedure: The patient underwent pharmacologic (Regadenoson 0.4mg ) evaluation with a peak heart rate of 115 beats per minute (83%predicted maximal heart rate) and a peak blood pressure of 116/58 mmHg. The baseline ECG demonstrated sinus rhythm. The peak pharmacologic ECG demonstrated no ischemic changes. There were no cardiac dysrhythmias pretest, during pharmacologic infusion, or recovery. Patient complained of chest pain pretest which remained unchanged. The patient was injected with 11.7 millicuries of technetium 99m Cardiolite and subsequently rest SPECT Cardiolite nuclear imaging was obtained in the horizontal long, vertical long, and short axis views. The patient underwent pharmacologic (Regadenoson) evaluation. The patient was injected with 33.3 millicuries of technetium 99m Cardiolite and subsequently stress SPECT Cardiolite nuclear imaging was obtained in the horizontal long, vertical long, and short axis views. A gated Cardiolite study at peak stress was obtained. The examination was stopped secondary to completion of protocol. Rest and stress SPECT Cardiolite nuclear imaging status post realignment, normalization, and attenuation correction demonstrate no fixed or reversible perfusion defects. There is end systolic thickening and brightening. The gated Cardiolite study demonstrates myocardial thickening and inward wall motion. The reported LVEF is 79%. Impression: 1. Pharmacologic (Regadenoson) evaluation 2. Peak pharmacologic ECG with. 3. There were no cardiac dysrhythmias pretest, during pharmacologic infusion, or recovery. 5. Rest and stress SPECT Cardiolite nuclear imaging demonstrate relative uniform tracer uptake and myocardial perfusion appearing within normal limits. 6. The gated Cardiolite study reports an LVEF of 79%. This note was generated with [employer] software. It may contain incorrect words, spelling, and punctuation that were not noted in checking the note before signing.
--- NOTE | 2023-04-26 15:41 | DS.PCM_ITS ---
Providers Date of Admission: 04/25/23 Date of Discharge: 04/26/23 Primary Care Physician: Dr. Qian Colindres MD Reason For Visit: CHEST PAIN Diagnosis Discharge Diagnosis (1) Chest pain: Status: Acute Code(s): R07.9 - Chest pain, unspecified (2) SOB (shortness of breath): Status: Acute Code(s): R06.02 - Shortness of breath Plan Patient is an 82-year-old lady admitted with a week history of chest pain. Admitted to a monitored bed where patient is currently undergoing evaluation 1. Chest pain ? Admitted to monitored bed serial cardiac enzymes so far negative to date patient to complete workup with a nuclear stress test ? Patient underwent a nuclear stress test which was negative for stress-induced ischemia subsequently discharged home ? Was assessed patient was having anxiety attack. Prescription was written for Paxil 20 mg on discharge 2. History of esophagitis ? Based on EGD performed on 09/09/2022 patient is on PPI continue. Patient has significant nausea and vomiting added Zofran as needed 3. DVT prophylaxis ? SC Lovenox Time spent in the patient's overall evaluation,decision-making process, review of diagnostic data, adjustment of management, discussion with other providers, nursing nursing and ancillary staff involved in patient's care documentation, 35 Minutes Medications at Discharge Home Medications trazodone 100 mg tablet 50 - 100 mg PO QHS sleep 04/21/19 gabapentin 300 mg capsule 300 - 600 mg PO DAILY 08/19/22 paroxetine HCl 20 mg tablet (Paxil) 20 mg PO DAILY #30 tabs 04/26/23 Hospital Course Procedures Stress test Summary of Care Provided Minutes Spent on Discharge: 35 Physical Exam Narrative GENERAL: cooperative HEENT: Atraumatic; normocephalic EYES; Anicteric, Normal Conjunctiva NECK; supple, normal thyroid, RESPIRATORY: Diminished to auscultation CARDIOVASCULAR: Regular S1 S2, GI: soft, normoactive bowel sounds, : No Renal angle tenderness; EXTREMITIES: No edema, no clubbing, MUSCULOSKELETAL: no muscle wasting NEURO: Awake; no lateralizing signs. SKIN: No Rash PSYCH; Flat affect Medical Records Data Medical Nutrition Assessment Dietitian: Malnutrition Criteria Met Start: 04/26/23 13:08 Freq: Status: Active Protocol: Document 04/26/23 15:07 RMA (Rec: 04/26/23 15:08 RMA [id number]) Nutrition Malnutrition Evidence of Malnutrition Exists Yes Malnutrition (severe): Acute Illness/Injury Evidenced By Suboptimal Energy Intake ( Severe),Weight Loss (Severe), Physical Changes (Severe) Clinical Problem Acute Disease or Injury Related Malnutrition Etiology Severe protein-calorie malnutrition in the context of acute disease related to inability to take adequate oral nutrition, altered GI funtion and difficulty chewing /swallowing Signs/Symptoms as evidenced by BMI 18.0, ~10% unintentional weight loss x 6 months, PO meeting less than 50% estimated nutrition needs x 3-6 months and severe muscle wasting and fat depletion in the clavicle, orbitals, temporal region, arms and legs Status Active Problem Recommendation Dietitian Recommendations/Changes Recommend advance diet as tolerated to liberalized Regular with consistency/ texture as per POST DOCTORAL RESEARCHER. Will add 240mL ensure clear BID w/ breakfast and dinner meals for now. Change ONS to 240mL vanilla ensure plus HP BID w/ breakfast and dinner as diet advanced from clear liquids. May need to consider enteral nutrition support to supplement PO if oral intake remains inadequate and weight continues to decline. Weight / BMI Weight Weight: 49 kg Body Mass Index (BMI) 17.9 ABG / Lab / Microbiology Data 04/26/23 06:20 04/26/23 06:20 Laboratory: Laboratory Results - last 24 hr 04/25/23 16:00: WBC 6.1, RBC 4.40, Hgb 13.9, Hct 43.6, MCV 99.1 H, MCH 31.6, MCHC 31.9 L, RDW Std Deviation 46.2 H, RDW Coeff of Ester 12.6, Plt Count 224, MPV 9.1, Immature Gran % (Auto) 0.300, Neut % (Auto) 66.7, Lymph % (Auto) 18.1 L, H[place]go % (Auto) 13.5 H, Eos % (Auto) 0.7, Baso % (Auto) 0.7, Absolute Neuts (auto) 4.1, Absolute Lymphs (auto) 1.10, Nucleated RBC % 0, Sodium 135 L, Potassium 4.1, Chloride 102, Carbon Dioxide 25.0, Anion Gap 8, BUN 30 H, Creatinine 0.90, Estim Creat Clear Calc 37.44, Est GFR (MDRD) Af Amer 76, Est GFR (MDRD) Non-Af 63, BUN/Creatinine Ratio 33.2 H, Glucose 97, Calcium 8.9, Troponin I High Sens 5, B-Natriuretic Peptide 26.2 04/25/23 20:20: Troponin I High Sens 6 04/26/23 06:20: WBC 4.8, RBC 4.10 L, Hgb 13.1, Hct 39.0, MCV 95.1, MCH 32.0, MCHC 33.6 D, RDW Std Deviation 44.2 H, RDW Coeff of Ester 12.7, Plt Count 257, MPV 9.1, Immature Gran % (Auto) 0.400, Neut % (Auto) 40.4 L, Lymph % (Auto) 39.6, Hidalgo % (Auto) 15.4 H, Eos % (Auto) 3.8, Baso % (Auto) 0.4, Absolute Neuts (auto) 1.9 L, Absolute Lymphs (auto) 1.88, Nucleated RBC % 0, Sodium 137, Potassium 3.7, Chloride 106, Carbon Dioxide 28.0, Anion Gap 3 L, BUN 17, Creatinine 0.75, Estim Creat Clear Calc 32.97, Est GFR (MDRD) Af Amer 95, Est GFR (MDRD) Non-Af 78, BUN/Creatinine Ratio 22.7 H, Glucose 97, Calcium 8.5 Radiography Diagnostic Testing: Radiology Impression Chest X-Ray 04/25/23 16:05 IMPRESSION: No radiographic evidence of acute cardiopulmonary disease. Electronically Signed: Mack Bradley MD at 16:29 EST , Chest CTA 04/25/23 17:00 IMPRESSION: Negative CTA chest. Electronically Signed: Mack Bradley MD at 17:37 EST , D/C Instructions Discharge Diet: No restrictions Discharge Activity: Return to Normal Activity Call your doctor if you observe: Fever of 101 or Higher, Shortness of breath, Fainting spells and Chest pain Meaningful Use Info Meaningful Use Diagnoses (Choose all that apply): None applicable Discharge Plan Admission Admit Date/Time: 04/25/23 18:08 Attending Provider: Bert Lin Primary Care Provider: Qian Colindres Consulting Providers: Minesh Castanon Discharge Orders/Prescriptions Prescriptions: New paroxetine HCl [Paxil] 20 mg tablet 20 mg PO DAILY Qty: 30 0RF Continued trazodone 100 MG tablet 50 - 100 mg PO QHS gabapentin 300 mg capsule 300 - 600 mg PO DAILY Referrals / Follow Up: Qian Colindres MD [Primary Care Provider] - Within 2 Weeks Disposition Disposition (needs filled in before D/C Order can be placed): Home, Self Care Charges/Coding Visit Charges Inpatient E&M: 26976 Disch Hosp >30min
--- NOTE | 2023-04-26 16:17 | PHA.DC.MC.R ---
Pharmacy [facility] has performed discharge medication reconciliation and counseling for this patient. 1. PAROXETINE 20MG PO DAILY The patient's discharge medication list was reviewed for discrepancies and discrepancies were resolved. The patient was counseled on the following discharge medications and changes in medications for homegoing were reviewed. The Reason for Use, instructions for use, and potential side effects were reviewed for all new medications. The patient's questions regarding all of their medications were answered. The patient was able to verbally demonstrate an understanding of their discharge medications. Medications at Discharge Home Medications trazodone 100 mg tablet 50 - 100 mg PO QHS sleep 04/21/19 gabapentin 300 mg capsule 300 - 600 mg PO DAILY 08/19/22 paroxetine HCl 20 mg tablet (Paxil) 20 mg PO DAILY #30 tabs 04/26/23
== END 2023-04-26 15:43 | disposition home or self-care (01) ==
LOC: ED 18:06 → PCU 18:18
PROVIDERS: Admitting Provider Family Medicine; Emergency Provider Emergency Medicine; PCP Internal Medicine; Visit Provider Internal Medicine
DX: R07.89 Other chest pain (principal); F41.9 Anxiety disorder, unspecified; Z87.891 Personal history of nicotine dependence; I49.8 Other specified cardiac arrhythmias; R13.10 Dysphagia, unspecified; K21.9 Gastro-esophageal reflux disease without esophagitis; J45.909 Unspecified asthma, uncomplicated; Z79.899 Other long term (current) drug therapy; R06.02 Shortness of breath; R63.4 Abnormal weight loss; Z68.1 Body mass index [BMI] 19.9 or less, adult
CPT/HCPCS: 36415; 71046; 71275; 78452; 80048; 83880; 84484; 85025; 92610; 93005; 93017; 94640; 96374; 97802; 99221; 99285; A9500; Q9967; A4216; G0378; J2405; J2785

== ENCOUNTER → 2023-08-05 | Outpatient (CLI) | payer MEDICARE, SELFPAY ==
--- NOTE | 2023-08-05 12:15 | MRI_ITS ---
STUDY: MRI LEFT FOREFOOT WITHOUT CONTRAST REASON FOR EXAM: Female, 82 years old. OSTEOMYELITIS TECHNIQUE: Standardized fat and water weighted pulse sequences were obtained in all 3 orthogonal planes. COMPARISON: None. FINDINGS: There is mild degenerative arthrosis at the first MTP joint. Normal bone marrow of the metatarsals, phalanges and visualized distal tarsal row, without osteomyelitis, fracture, periostitis, erosions or reactive bone edema. Normal sesamoids without sesamoiditis, fracture or avascular necrosis. There are no significant joint effusions. There are no extraarticular fluid collections. Normal visualized Lisfranc joints and normal Lisfranc ligament. Normal intermetatarsal spaces without intermetatarsal ([place]) neuroma or bursitis. Normal visualized distal posterior tibialis tendon. Normal visualized distal anterior tibialis tendon. Normal visualized distal peroneus longus and brevis tendons. Normal visualized extensor digitorum longus, extensor hallucis longus, flexor digitorum brevis and flexor hallucis longus tendons. Normal visualized plantar fascia without fasciitis, fibromatosis or tear. Normal intrinsic muscles of the foot, without soft tissue masses or evidence of denervation atrophy. Normal dorsal and plantar subcutis adipose space. 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 No MRI evidence of osteomyelitis. Electronically Signed: Speedy Winslow MD at 13:47 EDT ,
--- OUTSIDE RECORDS SUMMARY | 2023-08-05 16:51 | XMS RPT_ITS | CCD ---
Author Name Unknown Address [address] [place] [address] Organization [facility] Care Team Providers Care Tunnel Heading Inspector Name Role Phone KRISTEN, SHARATH Referring Unavailable KRISTEN, SHARATH Referring Unavailable Jannet Mitchell MD Primary Care Provider Jannet Mitchell MD Primary Care Provider Jens SALINAS Jannet D Primary Care Provider GINA AZEVEDO Attending Unavailable TALAMPAS, JANNET D Referring Unavailable TALAMPAS, JANNET D Primary Care Unavailable TALAMPAS, JANNET D Attending Unavailable TALAMPAS, JANNET D Primary Care Unavailable TALAMPAS, JANNET D Attending Unavailable TALAMPAS, JANNET D Primary Care Unavailable TALAMPAS, JANNET D Attending Unavailable TALAMPAS, JANNET D Primary Care Unavailable TALAMPAS, JANNET D Primary Care Unavailable MATTHEW DIAZ Attending Unavailable TALAMPAS, JANNET D Primary Care Unavailable TALAMPAS, JANNET D Referring Unavailable MATTHEW DIAZ Attending Unavailable TALAMPAS, JANNET D Primary Care Unavailable TALAMPAS, JANNET D Referring Unavailable TALAMPAS, JANNET D Attending Unavailable TALAMPAS, JANNET D Primary Care Unavailable TALAMPAS, JANNET D Attending Unavailable TALAMPAS, JANNET D Primary Care Unavailable TALAMPAS, JANNET D Primary Care Unavailable TALAMPAS, JANNET D Primary Care Unavailable TALAMPAS, JANNET D Attending Unavailable TALAMPAS, JANNET D Primary Care Unavailable TALAMPAS, JANNET D Attending Unavailable TALAMPAS, JANNET D Attending Unavailable TALAMPAS, JANNET D Primary Care Unavailable TALAMPAS, JANNET D Primary Care Unavailable TALAMPAS, JANNET D Referring Unavailable TALAMPAS, JANNET D Attending Unavailable TALAMPAS, JANNET D Primary Care Unavailable TALAMPAS, JANNET D Attending Unavailable TALAMPAS, JANNET D Primary Care Unavailable TALAMPGRABIEL JANNET D Primary Care Unavailable MARIEAMPGRABIEL JANNET D Referring Unavailable MARIEAMPAS, JANNET D Attending Unavailable TALAMPAS, JANNET D Primary Care Unavailable MARIEAMPGRABIEL JANNET D Attending Unavailable MARIEAMPGRABIEL JANNET D Primary Care Unavailable Allergies Allergy Classification Reported Allergen(s) Allergy Type Date of Onset Reaction(s) Facility (20 sources) Aminoglycosides (Antibiotic); Translations: [AMINOGLYCOSIDES] Propensity to adverse reactions to drug (disorder) 06-13-19 08 Vomiting [facility] Repository (20 sources) cefdinir; Translations: [CEFDINIR] Drug Allergy 08-03-19 15 Hives [facility] Repository (20 sources) Erythromycin; Translations: [ERYTHROMYCIN] Drug Allergy 01-20-20 10 GI Upset [facility] Repository (20 sources) gabapentin; Translations: [GABAPENTIN] Drug Allergy 06-30-19 16 Other: See Comments [facility] Repository (20 sources) Penicillin; Translations: [PENICILLIN G] Drug Allergy 11-05-19 04 Rash [facility] Repository (20 sources) predniSONE; Translations: [PREDNISONE] Drug Allergy 02-05-20 10 GI Upset [facility] Repository (20 sources) Sulfonamides (Antibiotic); Translations: [SULFA (SULFONAMIDE ANTIBIOTICS)] Propensity to adverse reactions to drug (disorder) 06-13-19 08 Vomiting [facility] Repository (20 sources) NITROFURANTOIN MONOHYD/M-CRYST; Translations: [NITROFURANTOIN MONOHYD/M-CRYST] Propensity to adverse reactions to drug (disorder) 06-13-19 08 Vomiting [facility] Repository (20 sources) Cephalexin; Translations: [CEPHALEXIN] Drug Allergy 03-31-20 21 Diarrhea [facility] Work Phone: Medications Current Medications Medication Drug Class(es) Dates Sig (Normalized) Sig (Original) amoxicillin 875 mg oral tablet (9 sources) Penicillin-class Antibacterial Start: 07-19-2023 End: 07-26-2023 take 1 tablet by mouth twice daily amoxicillin (AMOXIL) 875 mg tablet Indications: Acute pansinusitis, recurrence not specified Take 1 tablet by mouth two times a day for 7 days. 14 tablet 0 07/19/2023 07/26/2023 Active Completed/Discontinued Medications Medication Drug Class(es) Dates Sig (Normalized) Sig (Original) acetaminophen 325 mg / HYDROcodone bitartrate 5 mg oral tablet (20 sources) Opioid Agonist Start: 05-24-2023 End: 05-31-2023 take 1 tablet by mouth every eight hours as needed for pain HYDROcodone-acetamin ophen (NORCO) 5-325 mg per tablet Indications: Anterior chest wall pain , Bronchiectasis with acute lower respiratory infection (HCC) , Epigastric pain Take 1 tablet by mouth every 8 hours as needed for pain for up to 7 days. 21 tablet 0 05/24/2023 05/31/2023 Problems Active Problems Problem Classification Problem Date Documented Da te Episodic/Chronic Abdominal pain (20 sources) Pain in female pelvis; Translations: [Pelvic and perineal pain] Onset: 3 Episodic Acute bronchitis (3 sources) Acute bronchitis; Translations: [Acute bronchitis, unspecified] Onset: 4 03-19-2023 Episodic Anxiety disorders (20 sources) Anxiety; Translations: [Anxiety disorder, unspecified] Onset: 5 02-22-2015 Chronic Asthma (20 sources) Asthma; Translations: [Unspecified asthma, uncomplicated] Onset: 9 10-31-2018 Chronic Chronic obstructive pulmonary disease and bronchiectasis (20 sources) Acute exacerbation of bronchiectasis; Translations: [Bronchiectasis with (acute) exacerbation] Onset: 0 09-11-2019 Chronic Complications of surgical procedures or medical care (4 sources) Arterial complication of procedure; Translations: [Complication of mesenteric artery following a procedure, not elsewhere classified, sequela] Episodic Diverticulosis and diverticulitis (5 sources) Diverticulitis; Translations: [Diverticulitis of intestine, part unspecified, without perforation or abscess without bleeding] Onset: 3 Chronic E Codes: Fall (1 source) Fall; Translations: [Unspecified fall, initial encounter] Episodic Esophageal disorders (20 sources) Gastro-esophageal reflux disease without esophagitis; Translations: [Gastroesophageal reflux disease] Onset: 6 03-18-2010 Chronic Fracture of lower limb (2 sources) Closed fracture of right foot; Translations: [Unspecified fracture of right foot, initial encounter for closed fracture] Episodic Genitourinary symptoms and ill-defined conditions (20 sources) Urge incontinence of urine; Translations: [Urge incontinence] Onset: 7 04-22-2017 Chronic Immunizations and screening for infectious disease (3 sources) Vaccination needed; Translations: [Encounter for immunization] Onset: 4 Episodic Inflammatory diseases of female pelvic organs (2 sources) Abscess of labia; Translations: [Abscess of vulva] Episodic Menopausal disorders (20 sources) Menopausal flushing; Translations: [Menopausal and female climacteric states] Onset: 9 01-08-2011 Chronic Miscellaneous mental health disorders (15 sources) Psychophysiologic insomnia; Translations: [Psychophysiologic insomnia] Onset: 3 Chronic Mycoses (2 sources) Candidiasis of mouth; Translations: [Candidal stomatitis] Onset: 4 06-19-2023 Episodic Nausea and vomiting (2 sources) Nausea; Translations: [Nausea] Episodic Nonmalignant breast conditions (1 source) Breast lump; Translations: [Unspecified lump in the left breast, overlapping quadrants] Episodic Nonspecific chest pain (2 sources) Anterior chest wall pain; Translations: [Other chest pain] Onset: 4 06-19-2023 Episodic Open wounds of extremities (2 sources) Open wound of lower limb; Translations: [Unspecified open wound, left lower leg, initial encounter] Episodic Open wounds of extremities (1 source) Tear of skin; Translations: [Laceration without foreign body, right lower leg, initial encounter] Episodic Other connective tissue disease (20 sources) Cramp in lower limb; Translations: [Sleep related leg cramps] Onset: 8 03-18-2010 Chronic Other connective tissue disease (1 source) Muscle spasm of cervical muscle of neck; Translations: [Other muscle spasm] 11-30-2022 Episodic Other female genital disorders (1 source) Hematoma of vulva; Translations: [Other specified noninflammatory disorders of vulva and perineum] Episodic Other gastrointestinal disorders (20 sources) Irritable bowel syndrome with diarrhea; 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 bowel syndrome with diarrhea] Onset: 9 10-31-2018 Chronic Other gastrointestinal disorders (1 source) Irritable bowel syndrome; Translations: [Mixed irritable bowel syndrome] Chronic Other gastrointestinal disorders (1 source) Mixed irritable bowel syndrome; 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 bowel syndrome with both constipation and diarrhea] Onset: 3 Chronic Other gastrointestinal disorders (4 sources) Diarrhea; Translations: [Diarrhea, unspecified] Episodic Other gastrointestinal disorders (1 source) Abdominal bloating; Translations: [Abdominal distension (gaseous)] Episodic Other gastrointestinal disorders (1 source) Acute diarrhea; Translations: [Diarrhea, unspecified] Episodic Other gastrointestinal disorders (2 sources) Constipation; Translations: [Constipation, unspecified] Episodic Other hereditary and degenerative nervous system conditions (20 sources) Restless legs; Translations: [Restless legs syndrome] Onset: 0 09-11-2019 Chronic Other inflammatory condition of skin (20 sources) Psoriasis; Translations: [Psoriasis, unspecified] Onset: 0 07-03-2009 Chronic Other lower respiratory disease (1 source) Dyspnea; Translations: [Shortness of breath] 04-25-2023 Episodic Other non-traumatic joint disorders (4 sources) Chronic ankle pain; Translations: [Pain in right ankle and joints of right foot] Episodic Other screening for suspected conditions (not mental disorders or infectious disease) (1 source) Patient encounter status; Translations: [Encounter for screening mammogram for malignant neoplasm of breast] Episodic Other skin disorders (1 source) Skin lesion; Translations: [Disorder of the skin and subcutaneous tissue, unspecified] Episodic Other upper respiratory infections (4 sources) Chronic sinusitis; Translations: [Chronic sinusitis, unspecified] Onset: 3 04-15-2023 Chronic Other upper respiratory infections (2 sources) Acute pansinusitis; Translations: [Acute pansinusitis, unspecified] Episodic Peripheral and visceral atherosclerosis (20 sources) Mesenteric artery stenosis; 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] Onset: 1 09-29-2020 Chronic Residual codes; unclassified (1 source) Pain, unspecified; Translations: [Pain, unspecified] Onset: 9 Skin and subcutaneous tissue infections (2 sources) Cellulitis of left lower limb; Translations: [Cellulitis of left lower limb] Episodic Spondylosis; intervertebral disc disorders; other back problems (20 sources) Pain in cervical spine; Translations: [Cervical disc disorder, unspecified, unspecified cervical region] Onset: 3 Chronic Spondylosis; intervertebral disc disorders; other back problems (4 sources) Cervical radiculopathy; Translations: [Radiculopathy, cervical region] Onset: 3 02-03-2023 Episodic Unclassified (1 source) Subacute cough; Translations: [Subacute cough] Onset: 4 Past or Other Problems Problem Classification Problem Date Documented Da te Episodic/Chronic Chronic obstructive pulmonary disease and bronchiectasis (1 source) Bronchitis, not specified as acute or chronic; Translations: [Sinobronchitis] Onset: 04-19-2023 Episodic Genitourinary symptoms and ill-defined conditions (20 sources) Urgent desire to urinate; Translations: [Urgency of urination] Onset: 04-22-2017 04-22-2017 Episodic Other bone disease and musculoskeletal deformities (1 source) Chondrocostal junction syndrome [Tietze]; Translations: [Acute costochondritis] Onset: 04-19-2023 Episodic Other connective tissue disease (20 sources) Spasm; Translations: [Other muscle spasm] Onset: 04-22-2017 04-22-2017 Episodic Other connective tissue disease (20 sources) Cramp in lower limb; Translations: [Cramp and spasm] Onset: 09-11-2019 09-11-2019 Episodic Other connective tissue disease (1 source) Other muscle spasm; Translations: [Neck muscle spasm] Onset: 11-30-2022 Episodic Other female genital disorders (20 sources) Burning sensation of vagina; Translations: [Unspecified condition associated with female genital organs and menstrual cycle] Onset: 09-11-2019 09-11-2019 Episodic Other gastrointestinal disorders (1 source) Constipation, unspecified; Translations: [Constipation, unspecified constipation type] Onset: 01-07-2023 Episodic Other injuries and conditions due to external causes (20 sources) Muscle strain; Translations: [Other injury of unspecified body region, initial encounter] Onset: 07-03-2009 07-03-2009 Episodic Other lower respiratory disease (20 sources) Multiple nodules of lung; Translations: [Other nonspecific abnormal finding of lung field] Onset: 09-11-2019 09-11-2019 Episodic Other lower respiratory disease (20 sources) Imaging of lung abnormal ; Translations: [Other nonspecific abnormal finding of lung field] Onset: 09-11-2019 09-11-2019 Episodic Other lower respiratory disease (14 sources) Cough; Translations: [Cough] Onset: 04-19-2023 Episodic Other nervous system disorders (20 sources) Numbness of face; Translations: [Anesthesia of skin] Onset: 12-09-2022 Episodic Other nervous system disorders (20 sources) Numbness of upper limb; Translations: [Anesthesia of skin] Onset: 12-09-2022 Episodic Other nervous system disorders (2 sources) Anesthesia of skin; Translations: [Arm numbness left] Onset: 12-09-2022 Episodic Pancreatic disorders (not diabetes) (20 sources) Cyst of pancreas; Translations: [Cyst of pancreas] Onset: 02-22-2014 02-22-2014 Episodic Residual codes; unclassified (20 sources) History of angioplasty; Translations: [Other specified postprocedural states] Onset: 09-29-2020 09-29-2020 Episodic Sprains and strains (3 sources) Shoulder strain; Translations: [Strain of unspecified muscle, fascia and tendon at shoulder and upper arm level, unspecified arm, initial encounter] Onset: 02-21-2023 Episodic Viral infection (20 sources) Herpes simplex; Translations: [Herpesviral infection, unspecified] Onset: 10-31-2018 10-31-2018 Episodic Results Test Name Value Interpretation Reference Range Facil ity Vital Signs Date Time Vital Sign Value Performing Clinician Faci lity 05-24-2023 14:53-0500 Body temperature 98.6 [degF] Jannet Mitchell MD Work Phone: [facility] 05-24-2023 14:53-0500 Body weight 50.76 kg Jannet Mitchell MD Work Phone: [facility] 05-24-2023 14:53-0500 Diastolic blood pressure 60 mm[Hg] Jannet Mitchell MD Work Phone: [facility] 05-24-2023 14:53-0500 Heart rate 85 /min Jannet Mitchell MD Work Phone: [facility] 05-24-2023 14:53-0500 Respiratory rate 18 /min Jannet Mitchell MD Work Phone: [facility] 05-24-2023 14:53-0500 SaO2% (BldA) [Mass fraction] 97 % Jannet Mitchell MD Work Phone: [facility] 05-24-2023 14:53-0500 Systolic blood pressure 104 mm[Hg] Jannet Mitchell MD Work Phone: [facility] 04-25-2023 14:13-0500 Body temperature 97.9 [degF] Sulma Mai APRN.CLIENT STRATEGIST Work Phone: [facility] 04-25-2023 14:13-0500 Body weight 50.35 kg Sulma Mai APRN.CLIENT STRATEGIST Work Phone: [facility] 04-25-2023 14:13-0500 Diastolic blood pressure 62 mm[Hg] Sulma Mai APRN.CLIENT STRATEGIST Work Phone: [facility] 04-25-2023 14:13-0500 Heart rate 84 /min Sulma Mai APRN.CLIENT STRATEGIST Work Phone: [facility] 04-25-2023 14:13-0500 Respiratory rate 18 /min Sulma Mai APRN.CLIENT STRATEGIST Work Phone: [facility] 04-25-2023 14:13-0500 SaO2% (BldA) [Mass fraction] 96 % Sulma Mai APRN.CLIENT STRATEGIST Work Phone: [facility] 04-25-2023 14:13-0500 Systolic blood pressure 92 mm[Hg] Sulma Mai APRN.CLIENT STRATEGIST Work Phone: [facility] 03-22-2023 16:21-0400 Body temperature 97.81 [degF] Jannet Mitchell MD Work Phone: [facility] 03-22-2023 16:21-0400 Body weight 51.71 kg Jannet Mitchell MD Work Phone: [facility] 03-22-2023 16:21-0400 Diastolic blood pressure 64 mm[Hg] Jannet Mitchell MD Work Phone: [facility] 03-22-2023 16:21-0400 Heart rate 83 /min Jannet Mitchell MD Work Phone: [facility] 03-22-2023 16:21-0400 Respiratory rate 18 /min Jannet Mitchell MD Work Phone: [facility] 03-22-2023 16:21-0400 SaO2% (BldA) [Mass fraction] 97 % Jannet Mitchell MD Work Phone: [facility] 03-22-2023 16:21-0400 Systolic blood pressure 122 mm[Hg] Jannet Mitchell MD Work Phone: [facility] 02-03-2023 14:33-0400 Heart rate 86 /min Gina Azevedo MD Work Phone: [facility] 02-03-2023 14:33-0400 Respiratory rate 18 /min Gina Azevedo MD Work Phone: [facility] 02-03-2023 14:33-0400 SaO2% (BldA) [Mass fraction] 96 % Gina Azevedo MD Work Phone: [facility] 11-30-2022 18:37-0400 Body temperature 96.8 [degF] Jannet Mitchell MD Work Phone: [facility] 11-30-2022 18:37-0400 Body weight 51.71 kg Jannet Mitchell MD Work Phone: [facility] 11-30-2022 18:37-0400 Diastolic blood pressure 62 mm[Hg] Jannet Mitchell MD Work Phone: [facility] 11-30-2022 18:37-0400 Heart rate 92 /min Jannet Mitchell MD Work Phone: [facility] 11-30-2022 18:37-0400 Respiratory rate 18 /min Jannet Mitchell MD Work Phone: [facility] 11-30-2022 18:37-0400 SaO2% (BldA) [Mass fraction] 95 % Jannet Mitchell MD Work Phone: [facility] 11-30-2022 18:37-0400 Systolic blood pressure 102 mm[Hg] Jannet Mitchell MD Work Phone: [facility] 11-15-2022 17:09-0400 Body temperature 98.91 [degF] Jannet Mitchell MD Work Phone: [facility] 11-15-2022 17:09-0400 Body weight 51.71 kg Jannet Mitchell MD Work Phone: [facility] 11-15-2022 17:09-0400 Diastolic blood pressure 80 mm[Hg] Jannet Mitchell MD Work Phone: [facility] 11-15-2022 17:09-0400 Heart rate 84 /min Jannet Mitchell MD Work Phone: [facility] 11-15-2022 17:09-0400 Respiratory rate 18 /min Jannet Mitchell MD Work Phone: [facility] 11-15-2022 17:09-0400 SaO2% (BldA) [Mass fraction] 94 % Jannet Mitchell MD Work Phone: [facility] 11-15-2022 17:09-0400 Systolic blood pressure 120 mm[Hg] Jannet Mitchell MD Work Phone: [facility] 10-27-2022 14:27-0400 Body temperature 97.9 [degF] Jannet Mitchell MD Work Phone: [facility] 10-27-2022 14:27-0400 Body weight 51.26 kg Jannet Mitchell MD Work Phone: [facility] 10-27-2022 14:27-0400 Diastolic blood pressure 60 mm[Hg] Jannet Mitchell MD Work Phone: [facility] 10-27-2022 14:27-0400 Heart rate 90 /min Jannet Mitchell MD Work Phone: [facility] 10-27-2022 14:27-0400 Respiratory rate 18 /min Jannet Mitchell MD Work Phone: [facility] 10-27-2022 14:27-0400 SaO2% (BldA) [Mass fraction] 95 % Jannet Mitchell MD Work Phone: [facility] 10-27-2022 14:27-0400 Systolic blood pressure 112 mm[Hg] Jannet Mitchell MD Work Phone: [facility] 10-05-2022 13:10-0400 Body temperature 96.69 [degF] Jannet Mitchell MD Work Phone: [facility] 10-05-2022 13:10-0400 Diastolic blood pressure 62 mm[Hg] Jannet Mitchell MD Work Phone: [facility] 10-05-2022 13:10-0400 Heart rate 89 /min Jannet Mitchell MD Work Phone: [facility] 10-05-2022 13:10-0400 Respiratory rate 18 /min Jannet Mitchell MD Work Phone: [facility] 10-05-2022 13:10-0400 SaO2% (BldA) [Mass fraction] 96 % Jannet Mitchell MD Work Phone: [facility] 10-05-2022 13:10-0400 Systolic blood pressure 118 mm[Hg] Jannet Mitchell MD Work Phone: [facility] 09-25-2022 10:49-0400 Body height 166.4 cm Jannet Mitchell MD Work Phone: [facility] 09-25-2022 10:49-0400 Body temperature 97.5 [degF] Jannet Mitchell MD Work Phone: [facility] 09-25-2022 10:49-0400 Body weight 52.16 kg Jannet Mitchell MD Work Phone: [facility] 09-25-2022 10:49-0400 Diastolic blood pressure 50 mm[Hg] Jannet Mitchell MD Work Phone: [facility] 09-25-2022 10:49-0400 Heart rate 91 /min Jannet Mitchell MD Work Phone: [facility] 09-25-2022 10:49-0400 Respiratory rate 14 /min Jannet Mitchell MD Work Phone: [facility] 09-25-2022 10:49-0400 SaO2% (BldA) [Mass fraction] 97 % Jannet Mitchell MD Work Phone: [facility] 09-25-2022 10:49-0400 Systolic blood pressure 120 mm[Hg] Jannet Mitchell MD Work Phone: [facility] 08-13-2022 14:50-0400 Body temperature 98.01 [degF] Jannet Mitchell MD Work Phone: [facility] 08-13-2022 14:50-0400 Body weight 52.16 kg Jannet Mitchell MD Work Phone: [facility] 08-13-2022 14:50-0400 Diastolic blood pressure 58 mm[Hg] Jannet Mitchell MD Work Phone: [facility] 08-13-2022 14:50-0400 Heart rate 74 /min Jannet Mitchell MD Work Phone: [facility] 08-13-2022 14:50-0400 Respiratory rate 18 /min Jannet Mitchell MD Work Phone: [facility] 08-13-2022 14:50-0400 SaO2% (BldA) [Mass fraction] 96 % Jannet Mitchell MD Work Phone: [facility] 08-13-2022 14:50-0400 Systolic blood pressure 116 mm[Hg] Jannet Mitchell MD Work Phone: [facility] 07-27-2022 19:21-0500 Body temperature 99.9 [degF] Jannet Mitchell MD Work Phone: [facility] 07-27-2022 19:21-0500 Body weight 52.16 kg Jannet Mitchell MD Work Phone: [facility] 07-27-2022 19:21-0500 Diastolic blood pressure 68 mm[Hg] Jannet Mitchell MD Work Phone: [facility] 07-27-2022 19:21-0500 Heart rate 94 /min Jannet Mitchell MD Work Phone: [facility] 07-27-2022 19:21-0500 Respiratory rate 18 /min Jannet Mitchell MD Work Phone: [facility] 07-27-2022 19:21-0500 SaO2% (BldA) [Mass fraction] 96 % Jannet Mitchell MD Work Phone: [facility] 07-27-2022 19:21-0500 Systolic blood pressure 110 mm[Hg] Jannet Mitchell MD Work Phone: [facility] 07-10-2022 11:37-0500 Body temperature 97.9 [degF] Jannet Mitchell MD Work Phone: [facility] 07-10-2022 11:37-0500 Body weight 52.16 kg Jannet Mitchell MD Work Phone: [facility] 07-10-2022 11:37-0500 Diastolic blood pressure 70 mm[Hg] Jannet Mitchell MD Work Phone: [facility] 07-10-2022 11:37-0500 Heart rate 72 /min Jannet Mitchell MD Work Phone: [facility] 07-10-2022 11:37-0500 Respiratory rate 16 /min Jannet Mitchell MD Work Phone: [facility] 07-10-2022 11:37-0500 SaO2% (BldA) [Mass fraction] 99 % Jannet Mitchell MD Work Phone: [facility] 07-10-2022 11:37-0500 Systolic blood pressure 108 mm[Hg] Jannet Mitchell MD Work Phone: [facility] 05-28-2022 14:46-0500 Body temperature 97.7 [degF] Jannet Mitchell MD Work Phone: [facility] 05-28-2022 14:46-0500 Body weight 50.98 kg Jannet Mitchell MD Work Phone: [facility] 05-28-2022 14:46-0500 Diastolic blood pressure 68 mm[Hg] Jannet Mitchell MD Work Phone: [facility] 05-28-2022 14:46-0500 Heart rate 58 /min Jannet Mitchell MD Work Phone: [facility] 05-28-2022 14:46-0500 Respiratory rate 18 /min Jannet Mitchell MD Work Phone: [facility] 05-28-2022 14:46-0500 SaO2% (BldA) [Mass fraction] 97 % Jannet Mitchell MD Work Phone: [facility] 05-28-2022 14:46-0500 Systolic blood pressure 110 mm[Hg] Jannet Mitchell MD Work Phone: [facility] 05-21-2022 15:32-0500 Body temperature 98.8 [degF] Jannet Mitchell MD Work Phone: [facility] 05-21-2022 15:32-0500 Body weight 47.17 kg Jannet Mitchell MD Work Phone: [facility] 05-21-2022 15:32-0500 Diastolic blood pressure 68 mm[Hg] Jannet Mitchell MD Work Phone: [facility] 05-21-2022 15:32-0500 Heart rate 68 /min Jannet Mitchell MD Work Phone: [facility] 05-21-2022 15:32-0500 Respiratory rate 18 /min Jannet Mitchell MD Work Phone: [facility] 05-21-2022 15:32-0500 SaO2% (BldA) [Mass fraction] 98 % Jannet Mitchell MD Work Phone: [facility] 05-21-2022 15:32-0500 Systolic blood pressure 122 mm[Hg] Jannet Mitchell MD Work Phone: [facility] 03-30-2022 18:41-0500 Diastolic blood pressure 82 mm[Hg] Jannet Mitchell MD Work Phone: [facility] 03-30-2022 18:41-0500 Heart rate 78 /min Jannet Mitchell MD Work Phone: [facility] 03-30-2022 18:41-0500 SaO2% (BldA) [Mass fraction] 98 % Jannet Mitchell MD Work Phone: [facility] 03-30-2022 18:41-0500 Systolic blood pressure 142 mm[Hg] Jannet Mitchell MD Work Phone: [facility] 03-22-2022 13:21-0400 Body temperature 97.59 [degF] Jill Older DE ICER INSTALLER.CLIENT STRATEGIST Work Phone: [facility] 03-22-2022 13:21-0400 Body weight 52.16 kg Jill Older DE ICER INSTALLER.CLIENT STRATEGIST Work Phone: [facility] 03-22-2022 13:21-0400 Diastolic blood pressure 64 mm[Hg] Jill Older DE ICER INSTALLER.CLIENT STRATEGIST Work Phone: [facility] 03-22-2022 13:21-0400 Heart rate 74 /min Jill Older DE ICER INSTALLER.CLIENT STRATEGIST Work Phone: [facility] 03-22-2022 13:21-0400 Respiratory rate 14 /min Jill Older DE ICER INSTALLER.CLIENT STRATEGIST Work Phone: [facility] 03-22-2022 13:21-0400 SaO2% (BldA) [Mass fraction] 98 % Jill Older DE ICER INSTALLER.CLIENT STRATEGIST Work Phone: [facility] 03-22-2022 13:21-0400 Systolic blood pressure 118 mm[Hg] Jill Older DE ICER INSTALLER.CLIENT STRATEGIST Work Phone: [facility] 12-21-2021 14:21-0400 Body temperature 97.9 [degF] Tracy Podlogar DE ICER INSTALLER.CLIENT STRATEGIST Work Phone: [facility] 12-21-2021 14:21-0400 Diastolic blood pressure 72 mm[Hg] Tracy Podlogar DE ICER INSTALLER.CLIENT STRATEGIST Work Phone: [facility] 12-21-2021 14:21-0400 Heart rate 64 /min Tracy Podlogar DE ICER INSTALLER.CLIENT STRATEGIST Work Phone: [facility] 12-21-2021 14:21-0400 Respiratory rate 16 /min Tracy Podlogar DE ICER INSTALLER.CLIENT STRATEGIST Work Phone: [facility] 12-21-2021 14:21-0400 SaO2% (BldA) [Mass fraction] 94 % Tracy Podlogar DE ICER INSTALLER.CLIENT STRATEGIST Work Phone: [facility] 12-21-2021 14:21-0400 Systolic blood pressure 126 mm[Hg] Tracy Podlogar DE ICER INSTALLER.CLIENT STRATEGIST Work Phone: [facility] 12-14-2021 10:40-0400 Diastolic blood pressure 64 mm[Hg] Angelito Casiano MD Work Phone: [facility] 12-14-2021 10:40-0400 Heart rate 80 /min Angelito Casiano MD Work Phone: [facility] 12-14-2021 10:40-0400 Respiratory rate 16 /min Angelito Casiano MD Work Phone: [facility] 12-14-2021 10:40-0400 SaO2% (BldA) [Mass fraction] 97 % Angelito Casiano MD Work Phone: [facility] 12-14-2021 10:40-0400 Systolic blood pressure 108 mm[Hg] Angelito Casiano MD Work Phone: [facility] 11-20-2021 11:23-0400 Diastolic blood pressure 68 mm[Hg] Basilia Kellogg DE ICER INSTALLER.FLOOR CLEANER Work Phone: [facility] 11-20-2021 11:23-0400 Heart rate 76 /min Basilia Kellogg DE ICER INSTALLER.FLOOR CLEANER Work Phone: [facility] 11-20-2021 11:23-0400 Respiratory rate 16 /min Basilia Klelogg DE ICER INSTALLER.FLOOR CLEANER Work Phone: [facility] 11-20-2021 11:23-0400 Systolic blood pressure 102 mm[Hg] Basilia Kellogg DE ICER INSTALLER.FLOOR CLEANER Work Phone: [facility] 11-03-2021 14:57-0400 Body weight 52.16 kg Jannet Mitchell MD Work Phone: [facility] 11-03-2021 14:57-0400 Diastolic blood pressure 80 mm[Hg] Jannet Mitchell MD Work Phone: [facility] 11-03-2021 14:57-0400 Heart rate 71 /min Jannet Mitchell MD Work Phone: [facility] 11-03-2021 14:57-0400 SaO2% (BldA) [Mass fraction] 99 % Jannet Mitchell MD Work Phone: [facility] 11-03-2021 14:57-0400 Systolic blood pressure 108 mm[Hg] Jannet Mitchell MD Work Phone: [facility] 08-28-2021 12:48-0400 Body weight 52.16 kg Riddhi Ty MD Work Phone: [facility] 08-28-2021 12:48-0400 Diastolic blood pressure 72 mm[Hg] Riddhi Ty MD Work Phone: [facility] 08-28-2021 12:48-0400 Systolic blood pressure 110 mm[Hg] Riddhi Ty MD Work Phone: [facility] 07-31-2021 16:50-0500 Diastolic blood pressure 62 mm[Hg] Jannet Mitchell MD Work Phone: [facility] 07-31-2021 16:50-0500 Heart rate 62 /min Jannet Mitchell MD Work Phone: [facility] 07-31-2021 16:50-0500 Systolic blood pressure 112 mm[Hg] Jannet Mitchell MD Work Phone: [facility] Encounters Encounter Date Encounter Type Care Provider Facility Start: 07-29-2023 Telephone encounter Jannet pagan MD Work Phone: [facility] Procedures Date Procedure Procedure Detail Performing Clinician Start: 02-17-2022 Diagnostic mammograp hy computer-aided detcj bi Jannet Mitchell MD Work Phone: Start: 12-28-2021 Ct lower extremity w /o contrast material Ephraim Medina MD Work Phone: Start: 12-25-2021 Mri lower extrem oth /thn jt w/o contr matrl Ephraim Medina MD Work Phone: Start: 11-03-2021 PFIZER-BIONTECH COVI D-19 VACCINE, AGE 12+ YR (TERRELL TOP) Jannet Mitchell MD Work Phone: Start: 08-28-2021 Urnls dip stick/tabl et rgnt auto w/o microscopy Riddhi Ty MD Work Phone: Start: 08-12-2021 Us pelvic nonobstetr ic real-time image complete Riddhi Ty MD Work Phone: Plan of Treatment Date Care Activity Detail Author Start: 01-02-2029 Urine microalbumin profile [facility] Start: 02-22-2024 Covid-19 Vaccine ( season) Covid-19 Vaccine ( season) [facility] Immunizations Immunization Date Immunization Notes Care Provider Fa el 02-21-2023 influenza (HD-IIV4) vaccine, age 65+ yr, high dose, quadrivalent, PF (FLUZONE HIGH-DOSE) Jannet Mitchell MD Work Phone: [facility] 02-03-2022 influenza, high-dose , quadrivalent vaccine (FLUZONE HIGH DOSE QUADRIVALENT) Jannet Mitchell MD Work Phone: [facility] 02-03-2022 influenza virus vacc ine, unspecified formulation Gina Azevedo MD Work Phone: [facility] 11-03-2021 COVID-19 vaccine, ag e 12+ yr ([employer] - TERRELL TOP) Basilia Kellogg FLOOR CLEANER Work Phone: [facility] 04-07-2021 influenza (aIIV4) vaccine, age 65+ yr, quadrivalent, PF (FLUAD QUAD) Jannet Mitchell MD Work Phone: [facility] 04-07-2021 influenza, injectabl e, quadrivalent, contains preservative Riddhi Ty MD Work Phone: [facility] Work Phone: 07-10-2020 COVID-19 vaccine, fu ll dose (MODERNA) Riddhi Ty MD Work Phone: [facility] 06-12-2020 COVID-19 vaccine, fu ll dose (MODERNA) Riddhi Ty MD Work Phone: [facility] 01-29-2020 influenza (HD-IIV4) vaccine, age 65+ yr, high dose, quadrivalent, PF (FLUZONE HIGH-DOSE) Jannet Mitchell MD Work Phone: [facility] 01-29-2020 influenza, high dose seasonal, preservative-free Riddhi Ty MD Work Phone: [facility] Work Phone: 02-14-2019 influenza, high dose seasonal, preservative-free Riddhi Ty MD Work Phone: [facility] 01-02-2019 tetanus toxoid, redu kendall diphtheria toxoid, and acellular pertussis vaccine, adsorbed Riddhi Ty MD Work Phone: [facility] 03-20-2018 influenza, high dose seasonal, preservative-free Riddhi Ty MD Work Phone: [facility] 02-22-2017 influenza, high dose seasonal, preservative-free Riddhi Ty MD Work Phone: [facility] 08-31-2016 pneumococcal conjuga te vaccine, 13 valent Riddhi Ty MD Work Phone: [facility] 02-12-2016 influenza, high dose seasonal, preservative-free Riddhi Ty MD Work Phone: [facility] 03-25-2015 influenza, high dose seasonal, preservative-free Riddhi Ty MD Work Phone: [facility] 02-04-2014 influenza, seasonal, injectable Riddhi Ty MD Work Phone: [facility] 01-14-2014 influenza, high dose seasonal, preservative-free Riddhi Ty MD Work Phone: [facility] 02-21-2013 influenza virus vacc ine, unspecified formulation Riddhi Ty MD Work Phone: [facility] 02-15-2012 tetanus and diphther ia toxoids, adsorbed, preservative free, for adult use (2 Lf of tetanus toxoid and 2 Lf of diphtheria toxoid) Riddhi Ty MD Work Phone: [facility] 01-15-2012 influenza virus vacc ine, unspecified formulation Riddhi Ty MD Work Phone: [facility] 02-27-2010 influenza virus vacc ine, unspecified formulation Riddhi Ty MD Work Phone: [facility] 02-27-2010 pneumococcal polysaccharide vaccine, 23 valent Riddhi Ty MD Work Phone: [facility] 03-15-2006 influenza virus vacc ine, unspecified formulation Riddhi Ty MD Work Phone: [facility] Work Phone: 03-25-2005 influenza virus vacc ine, unspecified formulation Riddhi Ty MD Work Phone: [facility] Work Phone: Payers Date Payer Category Payer Private Health Insurance [id number] 2019 Medicare [id number] 2019 Unknown MMO MMO MEDICARE SUPPLEMENT [id number] 2019-Present [phone] [address] [place] [address] Indemnity [id number] 2009 Unknown BWC BWC GENERIC [id number] 2009-Present [phone] [address] [address] [place] [address] [id number] 2009 Unknown [id number] 2008 Medicare MEDICARE MEDICAR E A AND B [id number] 2008-Present [phone] [address] [address] [place] [address] Medicare [id number] 2008 Medicare [id number] 2008 Medicare [id number] Social History Date Type Detail Facility Start: 10-14-2021 End: 02-03-2022 Tobacco smoking status NHIS Ex-smoker [facility] End: 05-23-1978 History of tobacco use Cigarette Smoker [facility] Start: 07-31-2021 End: 05-24-2023 Alcohol intake Current non-drinker of alcohol (finding) [facility] Start: 11-19-2019 Tobacco Comment Briefly in col [place]ge, stopped in early 30s. [facility] Start: 1940 Sex Assigned At Not on file [facility] Start: 07-21-2021 End: 03-30-2022 Exposure to SARS-CoV-2 (event) Not sure [facility] End: 05-23-1978 History of tobacco use Current smoker [facility] Start: 10-14-2021 End: 02-03-2022 Tobacco use and exposure Smokeless tobacco non-user [facility] Start: 09-25-2022 End: 11-30-2022 History of Social function [facility] Work Phone: Start: 09-25-2022 End: 11-30-2022 Tobacco use panel [facility] Work Phone: Adult Depression Screening Assessment 0 [facility] Work Phone: Medical Equipment Procedure Code Equipment Code Equipment Origin al Text Equipment Identifier Dates Implant Memoryge l 11.4cm P4.6cm High Profile Round Narrow Base Silicone - [id number] Start: 08-06-2016 Implant Memoryge l 11.4cm P4.6cm High Profile Round Narrow Base Silicone - [id number] Start: 08-06-2016 Clinical Notes 08-26-2009 to 07-29-2023 Telephone Encounter - Susy Milner LPN - 07/29/2023 1:21 PM ESTTelephone Encounter - Milena Faye LPN - 07/28/2023 12:15 PM ESTTelephone Encounter - Dacia Sanabria RN - 07/27/2023 6:49 PM EST Note Date & Type Note Facility 07-29-2023 Miscellaneous Notes Images from the original note were not included. Electronic PA rec'd and completed for omeprazole. This was approved. Prior authorization approved Payer: [facility] [phone] PA Case: [id number], Status: Approved, Coverage Starts on: 05/23/2023 12:00:00 AM, Coverage Ends on: 05/22/2024 12:00:00 AM. Questions? Contact . Approval Details Authorization number: 0 Authorized from May 23, 2023 to May 22, 2024 Electronic appeal: Not supported View History Medication Being Authorized omeprazole (PRILOSEC) 40 mg capsule Take 1 capsule by mouth once daily. Dispense: 90 capsule Refills: 3 Start: 07/29/2023 Class: Normal Diagnoses: Subacute cough, Epigastric pain This order has been released to its destination. To be filled at: [address] [address] [facility] [phone] [id number] documented in this encounter [facility] 07-28-2023 Miscellaneous Notes Pt notified of message from provider & voiced understanding. Pt wishes to see pcp on Tuesday, appt booked. Appt was offered with another provider today but pt declined, states she only wants to see pcp. Milena Faye LPN Attempted to contact patient. No answer. Left message to return call and ask for a triage nurse. Dacia Sanabria, RN May add at 11:20 on Tuesday. If having constipation, remind her to try Miralax. If having diarrhea and cramping, she has had RX for Levsin and Bentyl before--can try one or the other if has at home. Agree with ER evaluation if pain gets too severe, especially if signs of bowel obstruction with nausea and vomiting and not able to keep food and fluid down. Patient call in for abdominal pain mid lower. Patient states that this has been going on for about 4 days. Patient continues to work although patient is moaning while one phone. Nurse Triage assessment completed with protocol recommending for disposition of See PCP in 4 hours. Patient not wanting to see anyone but Dr. Mitchell. Patient asking if Dr. Mitchell can fit her into schedule on Tuesday? Patient advised to seek evaluation in ER if symptoms persist or gets worse. Patient states that she will never go to the ER again at least not this one. Reason for Disposition [1] MILD-MODERATE pain AND [2] constant AND [3] present > 2 hours Answer Assessment - Initial Assessment Questions 1. LOCATION: Middle lower abdomen below belly button 2. RADIATION: Denies 3. ONSET: 4 days ago 4. SUDDEN: Gradual 5. PATTERN Constant, seems like it hurts most of the time 6. SEVERITY: Patient continues to work, does not wake from sleep; 7. RECURRENT SYMPTOM: Denies 8. CAUSE: What do you think is causing the stomach pain? Unsure 9. RELIEVING/AGGRAVATING FACTORS: Denies 10. OTHER SYMPTOMS: Denies other symptoms Protocols used: Abdominal Pain - [id number] documented in this encounter [facility] 07-23-2023 Miscellaneous Notes Detailed VM left on pt's identified voicemail of information below. Edith Chester LPN The following approved medication requests have been transmitted electronically. Requested Prescriptions Signed Prescriptions Disp Refills codeine-guaiFENesin (ROBITUSSIN AC) 10-100 mg/5 mL syrup 240 mL 0 Sig: Take 5-10 mL by mouth four times a day as needed for cough for up to 7 days. May cause drowsiness. Authorizing Provider: JANNET MITCHELL MD Pt states she is out and still has a bad cough. Patient has been identified by name and date of : Yes, Provider Dr Mitchell Date 07/22/23 Time 1632. Patient phones for refill(s): Requested Prescriptions Pending Prescriptions Disp Refills codeine-guaiFENesin (ROBITUSSIN AC) 10-100 mg/5 mL syrup 240 mL 0 Sig: Take 5-10 mL by mouth four times a day as needed for cough for up to 7 days. May cause drowsiness. Date of last office visit in primary care: 05/24/2023 Date of next office visit in primary care: Visit date not found Please advise. Thank you. Janie Andre RN. documented in this encounter [facility] 07-19-2023 Miscellaneous Notes Patient notified and verbalized understanding. Patient stated that she will make an appointment. Florencia Ocampo LPN May treat this time without being seen, but if not improving with treatment, or has another recurrence in less than 2 months, needs seen. The following approved medication requests have been transmitted electronically. Requested Prescriptions Signed Prescriptions Disp Refills amoxicillin (AMOXIL) 875 mg tablet 14 tablet 0 Sig: Take 1 tablet by mouth two times a day for 7 days. Authorizing Provider: JANNET MITCHELL predniSONE (DELTASONE) 10 mg tablet 30 tablet 0 Si tabs x 4 days, then 1 tab x3 days with food. Authorizing Provider: JANNET MITCHELL MD Pt calls to report sx started a few days ago: Nasal congestion, sinus pressure, drainage, sore throat, cough. Pt reports she needs an atb and steroids for this sinus infection . Tried to have pt schedule an appt but pt reports her dr always calls medication in for her. Pt reports she has to work tomorrow also. Please review and advise. Geraldine Otero LPN documented in this encounter [facility] 05-24-2023 Note HNO ID: [id number] Author: JANNET MITCHELL MD Service: ? Author Type: Physician Type: Progress Notes Filed: 06/19/2023 16:15 Note Text: This note was created using goodideazs. Subjective Harry Tran is a 82 year old female. Patient presents with: Hospital F/U SUBJECTIVE: Harry Tran is a 82 year old year old lady here today for hospital follow up appointment for review of medical conditions. Was in hospital 04/25/23 and declined appointment within 2 weeks of discharge. Evaluated for chest pain and SOB. Diagnosed with anxiety. Prescribed Paxil. Declines Paxil. Does not thinks had anxiety or panic attacks. Also was worried about potential side effects from the med. No significant issues with chest pain or SOB since discharge. Trying to get weight up. Getting more Ensure now and food. Stomach pain noted. Having more constipation lately. Has noted pain in left upper chest with tenderness. Also pain in mid upper back. Noted recurrent cold symptoms and having hard time breathing through her nose. Finished Cipro. No pain or pressure in sinuses. Treated for thrush with nystatin suspension. Wondered about pills. Has been using the suspension 2 times daily. 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 1tsp swish in mouth for several minutes, then swallow (or expectorate) 4 times daily until thrush gone. Repeat course for recurrence of thrush ondansetron (ZOFRAN) 4 mg tablet Take 1-2 tablets by mouth every 8 hours as needed for nausea/vomiting. fluticasone (FLONASE) 50 mcg/actuation nasal spray Use 2 Sprays in each nostril once daily. Rinse mouth after use. traZODone (DESYREL) 50 mg tablet Take 1-2 tablets by mouth daily at bedtime. gabapentin (NEURONTIN) 300 mg capsule Take 1-2 capsules by mouth daily at bedtime for 180 days. As directed ciprofloxacin HCl (CIPRO) 500 mg tablet Take 1 tablet by mouth two times a day for 7 days. To extend current course another week (Patient not taking: Reported on 05/24/2023) clonazePAM (KLONOPIN) 0.5 mg tablet Take 1-2 tablets by mouth once daily as needed for up to 30 days. As directed. May fill today due to increase anxiety. diclofenac, EC, (VOLTAREN) 75 mg EC tablet TAKE 1 PILL BY MOUTH WITH FOOD UP TO EVERY 12 HOURS NEEDED FOR PAIN (Patient not taking: Reported on 02/21/2023) polyethylene glycol 3350 (MIRALAX) 17 gram/dose powder Will try 1 to to 3 teaspoon daily to prevent constipation; increase dose as needed to treat constipation. (Patient not taking: Reported on 03/22/2023) valACYclovir (VALTREX) 1 gram Take 1 pill daily for 5 days for recurrences. Re-treat as needed (Patient not taking: Reported on 02/21/2023) hyoscyamine (LEVSIN) 0.125 mg tablet Take 1 tablet by mouth every 8 hours as needed. (Patient not taking: Reported on 02/03/2023) dicyclomine (BENTYL) 20 mg tablet Take 1 tablet by mouth before meals and at bedtime. As directed (Patient not taking: Reported on 02/03/2023) loperamide (IMODIUM) 2 mg cap(s) Take 1 capsule by mouth four times daily as needed. (Patient not taking: Reported on 05/24/2023) No current facility-administered medications for this visit. Review of Systems Objective BP 104/60 Pulse 85 Temp 37 ?C (98.6 ?F) Resp 18 Wt 50.8 kg (111 lb 14.4 oz) SpO2 97% BMI 18.34 kg/m? Last 5 Encounter Wt Readings: Date: Wt: 05/24/2023 50.8 kg (111 lb 14.4 oz) 04/25/2023 50.3 kg (111 lb) 04/19/2023 49.9 kg (110 lb) 03/22/2023 51.7 kg (114 lb) 02/21/2023 52.5 kg (115 lb 11.2 oz) No waist measurement recorded Estimated body mass index is 18.34 kg/m? as calculated from the following: Height as of 09/25/22: 166.4 cm (5' 5.5 ). Weight as of this encounter: 50.8 kg (111 lb 14.4 oz). Last 5 Encounter BP Readings: Date: BP: 05/24/2023 104/60 04/25/2023 92/62 04/19/2023 118/60 03/22/2023 122/64 02/21/2023 122/73 Physical Exam Constitutional: Appearance: Normal appearance. HENT: Head: Normocephalic. Eyes: Conjunctiva/sclera: Conjunctivae normal. Cardiovascular: Rate and Rhythm: Normal rate and regular rhythm. Heart sounds: Normal heart sounds. Pulmonary: Effort: Pulmonary effort is normal. Breath sounds: (more content not included)... [facility] 05-24-2023 Instructions Jannet Mitchell MD - 05/24/2023 3:22 PM EST Ensure twice daily to get enough calories and protein in. Also milk is fine. Okay to stay hydrated with water but okay to get water in fluids with calories--some healthy juices, milk okay. Continue with potatoes. Chicken and turkey okay. Cooked vegetables and fruits. Cooked corn okay (starch). For bowels: Miralax 1 to 2 tablespoons in 4 to 8 ounces of water in the morning--to keep stools from getting too hard Metamucil (psyllium) 1 scoop in water in the evening--to keep stools bulked up so neither too loose or too hard. Okay to try gummies or capsules. Make sure to take something to prevent constipation if taking the pain pill (hydrocodone). Need to treat and prevent constipation since this can cause problems with reflux, nausea and vomiting and stomach pain from acid. documented in this encounter [facility] 05-24-2023 History of Present illness Narrative This note was created using TactoTekter. Subjective Harry Tran is a 82 year old female. Patient presents with: Hospital F/U SUBJECTIVE: Harry Tran is a 82 year old year old lady here today for hospital follow up appointment for review of medical conditions. Was in hospital 04/25/23 and declined appointment within 2 weeks of discharge. Evaluated for chest pain and SOB. Diagnosed with anxiety. Prescribed Paxil. Declines Paxil. Does not thinks had anxiety or panic attacks. Also was worried about potential side effects from the med. No significant issues with chest pain or SOB since discharge. Trying to get weight up. Getting more Ensure now and food. Stomach pain noted. Having more constipation lately. Has noted pain in left upper chest with tenderness. Also pain in mid upper back. Noted recurrent cold symptoms and having hard time breathing through her nose. Finished Cipro. No pain or pressure in sinuses. Treated for thrush with nystatin suspension. Wondered about pills. Has been using the suspension 2 times daily. 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 1tsp swish in mouth for several minutes, then swallow (or expectorate) 4 times daily until thrush gone. Repeat course for recurrence of thrush ondansetron (ZOFRAN) 4 mg tablet Take 1-2 tablets by mouth every 8 hours as needed for nausea/vomiting. fluticasone (FLONASE) 50 mcg/actuation nasal spray Use 2 Sprays in each nostril once daily. Rinse mouth after use. traZODone (DESYREL) 50 mg tablet Take 1-2 tablets by mouth daily at bedtime. gabapentin (NEURONTIN) 300 mg capsule Take 1-2 capsules by mouth daily at bedtime for 180 days. As directed ciprofloxacin HCl (CIPRO) 500 mg tablet Take 1 tablet by mouth two times a day for 7 days. To extend current course another week (Patient not taking: Reported on 05/24/2023) clonazePAM (KLONOPIN) 0.5 mg tablet Take 1-2 tablets by mouth once daily as needed for up to 30 days. As directed. May fill today due to increase anxiety. diclofenac, EC, (VOLTAREN) 75 mg EC tablet TAKE 1 PILL BY MOUTH WITH FOOD UP TO EVERY 12 HOURS NEEDED FOR PAIN (Patient not taking: Reported on 02/21/2023) polyethylene glycol 3350 (MIRALAX) 17 gram/dose powder Will try 1 to to 3 teaspoon daily to prevent constipation; increase dose as needed to treat constipation. (Patient not taking: Reported on 03/22/2023) valACYclovir (VALTREX) 1 gram Take 1 pill daily for 5 days for recurrences. Re-treat as needed (Patient not taking: Reported on 02/21/2023) hyoscyamine (LEVSIN) 0.125 mg tablet Take 1 tablet by mouth every 8 hours as needed. (Patient not taking: Reported on 02/03/2023) dicyclomine (BENTYL) 20 mg tablet Take 1 tablet by mouth before meals and at bedtime. As directed (Patient not taking: Reported on 02/03/2023) loperamide (IMODIUM) 2 mg cap(s) Take 1 capsule by mouth four times daily as needed. (Patient not taking: Reported on 05/24/2023) No current facility-administered medications for this visit. Review of Systems Objective BP 104/60 Pulse 85 Temp 37 C (98.6 F) Resp 18 Wt 50.8 kg (111 lb 14.4 oz) SpO2 97% BMI 18.34 kg/m Last 5 Encounter Wt Readings: Date: Wt: 05/24/2023 50.8 kg (111 lb 14.4 oz) 04/25/2023 50.3 kg (111 lb) 04/19/2023 49.9 kg (110 lb) 03/22/2023 51.7 kg (114 lb) 02/21/2023 52.5 kg (115 lb 11.2 oz) No waist measurement recorded Estimated body mass index is 18.34 kg/m as calculated from the following: Height as of 09/25/22: 166.4 cm (5' 5.5 ). Weight as of this encounter: 50.8 kg (111 lb 14.4 oz). Last 5 Encounter BP Readings: Date: BP: 05/24/2023 104/60 04/25/2023 92/62 04/19/2023 118/60 03/22/2023 122/64 02/21/2023 122/73 Physical Exam Constitutional: Appearance: Normal appearance. HENT: Head: Normocephalic. Eyes: Conjunctiva/sclera: Conjunctivae normal. Cardiovascular: Rate and Rhythm: Normal rate and regular rhythm. Heart sounds: Normal heart sounds. Pulmonary: Effort: Pulmonary effort is normal. Breath sounds: Normal breath sounds. Skin: General: Skin is warm and dry. Neurological: General: No focal deficit present. Mental Status: She is alert and oriented to person, place, and time. Psychiatric: Mood and Affect: Mood normal. Behavior: Behavior normal. Thought Content: Thought content normal. Judgment: Judgment normal. Assessment and Plan Encounter Diagnosis ICD-10-CM 1. Thrush (oral) B37.0 fluconazole (DIFLUCAN) 100 mg tablet Recurrent versus persistent thrush.Trreatment as discussed 2. Acute bronchitis, unspecified organism J20.9 amoxicillin (AMOXIL) 875 mg tablet Not resolved with Cipro and prednisone. Amoxil prescribed this time.Recommend follow up with [facility] if not improving or keeps having recurrent symptoms 3. Anterior chest wall pain R07.89 HYDROcodone-acetaminophen (NORCO) 5-325 mg per tablet Suspect associated with persisten cough. Treat to resolve cough. 4. Subacute cough R05.2 mometasone (NASONEX) 50 mcg/actuation nasal spray pantoprazole DR (PROTONIX) 40 mg tablet Treating infection as well as reflux 5. Bronchiectasis with acute lower respiratory infection (HCC) J47.0 HYDROcodone-acetaminophen (NORCO) 5-325 mg per tablet As noted above with treating with Amoxil since Cipro and prednisone did not help resolving symptoms 6. Epigastric pain R10.[address] (PROTONIX) 40 mg tablet HYDROcodone-acetaminophen (NORCO) 5-325 mg per tablet History of GERD, esophagitis and gastritis PPI as discussed along with lifestyle management for preventing reflux 7. Constipation, unspecified constipation type K59.00 Discussed management for treatment and prevention.Need to control this to help with reflux 8. Encounter for immunization Z23 RSV PRINTED PHARMACY INSTRUCTIONS Above issues addressed with patient. Patient involved in shared decision making for management of medical issues. History and medications reviewed. Epic updated as needed Refills and/or prescriptions taken care of and meds adjusted as indicated after reviewed history, exam and labs. Health Maintenance reviewed. Updated record and/or ordered tests as recorded. Encouraged on efforts at healthy diet and regular exercise and adequate sleep. I spent a total of 50 minutes on the date of the service which included [id number] patient care, completing clinical documentation, obtaining and/or reviewing separately obtained history, performing a medically appropriate examination, counseling and educating the patient/family/caregiver, ordering medications, tests, or procedures, independently interpreting results (not separately reported), and communicating results to the patient/family/caregiver. Jannet Mitchell MD documented in this encounter [facility] 04-29-2023 Miscellaneous Notes Left detailed vm on identified vm with provider's message below. Filed order for pulmonology consult for recurrent respiratory infections and her history of bronchiectasis. Try nystatin swish and swallow or swish and exepctorate (Spit). The following approved medication requests have been transmitted electronically. Requested Prescriptions Signed Prescriptions Disp Refills nystatin (MYCOSTATIN) 100,000 unit/mL suspension 200 mL 3 Sig: Take 5 mL by mouth four times daily. 1tsp swish in mouth for several minutes, then swallow (or expectorate) 4 times daily until thrush gone. Repeat course for recurrence of thrush Authorizing Provider: JANNET MITCHELL MD Patient calls and states that she forgot to mention at appointment that she has a white coating on tongue and roof of mouth. Patient also wants to know what doctor provider would recommend for her to see regarding her chronic issues. Patient states that provider was going to refer her to someone. Please review and advise, Desirae Case RN documented in this encounter [facility] 04-25-2023 Note HNO ID: [id number] Author: Sulma Mai APRN.JESSICA Service: ? Author Type: Nurse Practitioner Type: Progress Notes Filed: 04/25/2023 2:45 PM Note Text: Patient came in complaining of being sick for about 10 to 14 days. Over the last couple days has been having shortness of breath. Patient says when she takes a deep breath and she has pain on the left side. Patient does appear to be pursed lip breathing. Patient should be seen at the ER for full evaluation. Did offer a squad. Patient does not want a squad she wants to take her self. [facility] 04-25-2023 History of Present illness Narrative Patient came in complaining of being sick for about 10 to 14 days. Over the last couple days has been having shortness of breath. Patient says when she takes a deep breath and she has pain on the left side. Patient does appear to be pursed lip breathing. Patient should be seen at the ER for full evaluation. Did offer a squad. Patient does not want a squad she wants to take her self. documented in this encounter [facility] 04-22-2023 Miscellaneous Notes Patient calls for nose bleed earlier today. Nurse triage completed. Protocol recommends home care. Patient verbalizes understanding and will call back with further concerns or questions. Reason for Disposition [1] Mild-moderate nosebleed AND [2] bleeding stopped now Answer Assessment - Initial Assessment Questions 1. AMOUNT OF BLEEDING: - MODERATE: needed many tissues Patient reports one nose bleed earlier today that took several kleenex to stop and after stopped she had one clot the size do thumb nail come out. 2. ONSET: Earlier today. 3. FREQUENCY: 1 4. RECURRENT SYMPTOMS: Not for a long time 5. CAUSE: Patient not certain. Has a cold currently. 6. LOCAL FACTORS:Cold symptoms. 7. SYSTEMIC FACTORS: No 8. BLOOD THINNERS: No 9. OTHER SYMPTOMS: No light-headedness. Protocols used: [id number] documented in this encounter [facility] 04-19-2023 Note HNO ID: [id number] Author: Jannet Mitchell MD Service: ? Author Type: Physician Type: Progress Notes Filed: 05/21/2023 8:25 PM Note Text: This note was created using [employer]. Subjective Harry Tran is a 82 year old female. Patient presents with: F/U 4 week SUBJECTIVE: Harry Tran is a 82 year old year old lady here today for 4 week follow up appointment for review of medical conditions. Started with sinobronchitis symptoms at least 1 week ago. Every day gets sick. Ondansetron twice daily--helps some. Can stay hydrated. Eats some frosted flakes in AM. Mashed potatoes. No constipation or diarrhea. Having pain in left chest above breast and laterally. Has had increased coughing. Taking antibiotic and cough Needed work excuse. 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; was reactive depression after the of her mom, not active Diverticulosis of colon (without mention of hemorrhage) Esophageal reflux on [facility] Herpes simplex Hot flash, menopausal has been premarin since menopause Internal hemorrhoids without mention of complication Mitral valve disorders(424.0) MVP Nausea alone Other specified circulatory system disorders raynauds Psoriasis 07/03/2009 Unspecified gastritis and gastroduodenitis on [facility] Current Outpatient Medications Medication Sig ciprofloxacin HCl (CIPRO) 500 mg tablet Take 1 tablet by mouth two times a day for 7 days. ondansetron (ZOFRAN) 4 mg tablet Take 1-2 tablets by mouth every 8 hours as needed for nausea/vomiting. fluticasone (FLONASE) 50 mcg/actuation nasal spray Use 2 Sprays in each nostril once daily. Rinse mouth after use. traZODone (DESYREL) 50 mg tablet Take 1-2 tablets by mouth daily at bedtime. gabapentin (NEURONTIN) 300 mg capsule Take 1-2 capsules by mouth daily at bedtime for 180 days. As directed clonazePAM (KLONOPIN) 0.5 mg tablet Take 1-2 tablets by mouth once daily as needed for up to 30 days. As directed. May fill today due to increase anxiety. loperamide (IMODIUM) 2 mg cap(s) Take 1 capsule by mouth four times daily as needed. diclofenac, EC, (VOLTAREN) 75 mg EC tablet TAKE 1 PILL BY MOUTH WITH FOOD UP TO EVERY 12 HOURS NEEDED FOR PAIN (Patient not taking: Reported on 02/21/2023) polyethylene glycol 3350 (MIRALAX) 17 gram/dose powder Will try 1 to to 3 teaspoon daily to prevent constipation; increase dose as needed to treat constipation. (Patient not taking: Reported on 03/22/2023) valACYclovir (VALTREX) 1 gram Take 1 pill daily for 5 days for recurrences. Re-treat as needed (Patient not taking: Reported on 02/21/2023) hyoscyamine (LEVSIN) 0.125 mg tablet Take 1 tablet by mouth every 8 hours as needed. (Patient not taking: Reported on 02/03/2023) dicyclomine (BENTYL) 20 mg tablet Take 1 tablet by mouth before meals and at bedtime. As directed (Patient not taking: Reported on 02/03/2023) No current facility-administered medications for this visit. Review of Systems Objective BP 118/60 Pulse 98 Temp 36.2 ?C (97.1 ?F) Resp 20 Wt 49.9 kg (110 lb) SpO2 100% BMI 18.03 kg/m? Last 5 Encounter Wt Readings: Date: Wt: 04/19/2023 49.9 kg (110 lb) 03/22/2023 51.7 kg (114 lb) 02/21/2023 52.5 kg (115 lb 11.2 oz) 12/11/2022 49.9 kg (110 lb) 11/30/2022 51.7 kg (114 lb) No waist measurement recorded Estimated body mass index is 18.03 kg/m? as calculated from the following: Height as of 09/25/22: 166.4 cm (5' 5.5 ). Weight as of this encounter: 49.9 kg (110 lb). Last 5 Encounter BP Readings: Date: BP: 04/19/2023 118/60 03/22/2023 122/64 02/21/2023 122/73 12/11/2022 110/70 11/30/2022 102/62 Physical Exam Constitutional: General: She is not in acute distress. Appearance: Normal appearance. She is ill-appearing. She is not toxic-appearing or diaphoretic. HENT: Head: Normocephalic. Comments: Tenderness over sinuses Eyes: Conjunctiva/sclera: Conjunctivae normal. Cardiovascular: Rate and Rhythm: Normal rate and regular rhythm. Heart sounds: Normal heart sounds. Pulmonary: Effort: Pulmonary effort is normal. Breath sounds: Wheezing (With coughing) present. Musculoskeletal: Right lower leg: No edema. Left lower leg: No edema. Skin: General: Skin is warm and dry. Neurological: General: No focal deficit present. Mental Status: She is alert and oriented to person, place, and time. Psychiatric: Mood and Affect: Mood normal. Behavior: Behavior normal. Thought Content: Thought content normal. Judgment: Judgment normal. Assessment and Plan ASSESSMENT/PLAN: 1. Sinobronchitis - ICD9: 473.9, 490, ICD10: J32.9, J40 (primary diagnosis) - Will begin treatment with as per antibiotic as written, see orders - CODEINE 10 MG-GUAIFENESIN 100 MG/5 ML ORAL LI (more content not included)... [facility] 04-16-2023 Miscellaneous Notes Message left to pt with info. She was just on Cipro end of February. Recommend she see [facility] if she gets another episode of infection like this again in the next 1 to 2 months given her diagnosis of bronchiectasis. Up to her if back to Dr. Coy who she had seen at [facility], or with [facility] (prefer our providers ideally) Will treat given her history of bronchiectasis and it is the weekend. Follow up if not getting better. The following approved medication requests have been transmitted electronically. Requested Prescriptions Signed Prescriptions Disp Refills ciprofloxacin HCl (CIPRO) 500 mg tablet 14 tablet 0 Sig: Take 1 tablet by mouth two times a day for 7 days. Jannet Mitchell MD Patient calls to request antibiotic for cough and mild SOB. Nurse triage completed. Protocol recommends see provider within 4 hours. No appointments available. Patient declines EC. Requests her usual antibiotic . Care advice reviewed. Patient verbalizes understanding. [facility]acy is [facility]. Reason for Disposition [1] MILD difficulty breathing (e.g., minimal/no SOB at rest, SOB with walking, pulse <100) AND [2] still present when not coughing Answer Assessment - Initial Assessment Questions 1. ONSET: Patient reports she developed a cough 4 days ago and is bringing up yellowish green mucus. Patient has to work tonight and is requesting provider send in her usual antibiotic to [facility]. 2. SEVERITY: Patient reports it is severe and she needs her antibiotic to get rid of it. 3. SPUTUM: yellowish green. 4. HEMOPTYSIS: No 5. DIFFICULTY BREATHING: - MILD: No SOB at rest, mild SOB with walking, speaks normally in sentences, can lie down, no retractions, pulse < 100. 6. FEVER: No 7. CARDIAC HISTORY: No history of heart attack, congestive heart failure) 8. LUNG HISTORY: Asthma, Lung Nodules, Bronchiectasis, Chronic Asthmatic Bronchitis. 9. PE RISK FACTORS: No recent major surgery, recent prolonged travel, bedridden 10. OTHER SYMPTOMS: Runny nose. No wheezing or chest pain. 11. : NA 12. TRAVEL:NA Protocols used: Cough - Acute [id number]-IV documented in this encounter [facility] 03-22-2023 Note HNO ID: [id number] Author: Jannet Mitchell MD Service: ? Author Type: Physician Type: Progress Notes Filed: 04/17/2023 7:02 PM Note Text: This note was created using [employer]. Subjective Harry Tran is a 82 year old female. Patient presents with: F/U 4 week SUBJECTIVE: Harry Tran is a 82 year old year old lady here today for follow up appointment for review of medical conditions. Had eye surgery. Has been ill. Nasal congestion. Hard to breath through her nose. Voice getting hoarse from coughing. Ongoing symptoms the past 2 weeks and getting worse. Not really SOB. 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; was reactive depression after the of her mom, not active - Diverticulosis of colon (without mention of hemorrhage) - Esophageal reflux on wellchol - Herpes simplex - Hot flash, menopausal has been premarin since menopause - Internal hemorrhoids without mention of complication - Mitral valve disorders(424.0) MVP - Nausea alone - Other specified circulatory system disorders raynauds - Psoriasis 07/03/2009 - Unspecified gastritis and gastroduodenitis on [facility] Current Outpatient Medications Medication Sig - traZODone (DESYREL) 50 mg tablet Take 1-2 tablets by mouth daily at bedtime. - gabapentin (NEURONTIN) 300 mg capsule Take 1-2 capsules by mouth daily at bedtime for 180 days. As directed - clonazePAM (KLONOPIN) 0.5 mg tablet Take 1-2 tablets by mouth once daily as needed for up to 30 days. As directed. May fill today due to increase anxiety. - ondansetron (ZOFRAN) 4 mg tablet Take 1-2 tablets by mouth every 8 hours as needed for nausea/vomiting. - loperamide (IMODIUM) 2 mg cap(s) Take 1 capsule by mouth four times daily as needed. - diclofenac, EC, (VOLTAREN) 75 mg EC tablet TAKE 1 PILL BY MOUTH WITH FOOD UP TO EVERY 12 HOURS NEEDED FOR PAIN (Patient not taking: Reported on 02/21/2023) - polyethylene glycol 3350 (MIRALAX) 17 gram/dose powder Will try 1 to to 3 teaspoon daily to prevent constipation; increase dose as needed to treat constipation. (Patient not taking: Reported on 03/22/2023) - valACYclovir (VALTREX) 1 gram Take 1 pill daily for 5 days for recurrences. Re-treat as needed (Patient not taking: Reported on 02/21/2023) - hyoscyamine (LEVSIN) 0.125 mg tablet Take 1 tablet by mouth every 8 hours as needed. (Patient not taking: Reported on 02/03/2023) - dicyclomine (BENTYL) 20 mg tablet Take 1 tablet by mouth before meals and at bedtime. As directed (Patient not taking: Reported on 02/03/2023) No current facility-administered medications for this visit. Review of Systems Objective BP 122/64 Pulse 83 Temp 36.6 ?C (97.8 ?F) Resp 18 Wt 51.7 kg (114 lb) SpO2 97% BMI 18.68 kg/m? Physical Exam Constitutional: Appearance: Normal appearance. HENT: Head: Normocephalic. Eyes: Conjunctiva/sclera: Conjunctivae normal. Cardiovascular: Rate and Rhythm: Normal rate and regular rhythm. Heart sounds: Normal heart sounds. Pulmonary: Effort: Pulmonary effort is normal. Breath sounds: Normal breath sounds. No wheezing (no wheezing with forced expirations). Skin: General: Skin is warm and dry. Neurological: General: No focal deficit present. Mental Status: She is alert and oriented to person, place, and time. Psychiatric: Mood and Affect: Mood normal. Behavior: Behavior normal. Thought Content: Thought content normal. Judgment: Judgment normal. Assessment and Plan Encounter Diagnosis ICD-10-CM 1. Sinobronchitis J32.9 ciprofloxacin HCl (CIPRO) 500 mg tablet J40 codeine-guaiFENesin (ROBITUSSIN AC) 10-100 mg/5 mL syrup 2. Cough R05.9 ciprofloxacin HCl (CIPRO) 500 mg tablet codeine-guaiFENesin (ROBITUSSIN AC) 10-100 mg/5 mL syrup 3. Bronchiectasis with acute exacerbation (HCC) J47.1 ciprofloxacin HCl (CIPRO) 500 mg tablet codeine-guaiFENesin (ROBITUSSIN AC) 10-100 mg/5 mL syrup Suspect contributing to cough Above issues addressed with patient. Patient involved in shared decision making for management of medical issues. History and medications reviewed. Epic updated as needed Refills and/or prescriptions taken care of and meds adjusted as indicated after reviewed history, exam and labs. Health Maintenance reviewed. Updated record and/or ordered tests as recorded. Encouraged on efforts at healthy diet and regular exercise and adequate sleep. Jannet Mitchell MD [facility] 03-22-2023 History of Present illness Narrative This note was created using [employer]. Subjective Harry Tran is a 82 year old female. Patient presents with: F/U 4 week SUBJECTIVE: Harry Tran is a 82 year old year old lady here today for follow up appointment for review of medical conditions. Had eye surgery. Has been ill. Nasal congestion. Hard to breath through her nose. Voice getting hoarse from coughing. Ongoing symptoms the past 2 weeks and getting worse. Not really SOB. 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 gabapentin (NEURONTIN) 300 mg capsule Take 1-2 capsules by mouth daily at bedtime for 180 days. As directed clonazePAM (KLONOPIN) 0.5 mg tablet Take 1-2 tablets by mouth once daily as needed for up to 30 days. As directed. May fill today due to increase anxiety. ondansetron (ZOFRAN) 4 mg tablet Take 1-2 tablets by mouth every 8 hours as needed for nausea/vomiting. loperamide (IMODIUM) 2 mg cap(s) Take 1 capsule by mouth four times daily as needed. diclofenac, EC, (VOLTAREN) 75 mg EC tablet TAKE 1 PILL BY MOUTH WITH FOOD UP TO EVERY 12 HOURS NEEDED FOR PAIN (Patient not taking: Reported on 02/21/2023) polyethylene glycol 3350 (MIRALAX) 17 gram/dose powder Will try 1 to to 3 teaspoon daily to prevent constipation; increase dose as needed to treat constipation. (Patient not taking: Reported on 03/22/2023) valACYclovir (VALTREX) 1 gram Take 1 pill daily for 5 days for recurrences. Re-treat as needed (Patient not taking: Reported on 02/21/2023) hyoscyamine (LEVSIN) 0.125 mg tablet Take 1 tablet by mouth every 8 hours as needed. (Patient not taking: Reported on 02/03/2023) dicyclomine (BENTYL) 20 mg tablet Take 1 tablet by mouth before meals and at bedtime. As directed (Patient not taking: Reported on 02/03/2023) No current facility-administered medications for this visit. Review of Systems Objective BP 122/64 Pulse 83 Temp 36.6 C (97.8 F) Resp 18 Wt 51.7 kg (114 lb) SpO2 97% BMI 18.68 kg/m Physical Exam Constitutional: Appearance: Normal appearance. HENT: Head: Normocephalic. Eyes: Conjunctiva/sclera: Conjunctivae normal. Cardiovascular: Rate and Rhythm: Normal rate and regular rhythm. Heart sounds: Normal heart sounds. Pulmonary: Effort: Pulmonary effort is normal. Breath sounds: Normal breath sounds. No wheezing (no wheezing with forced expirations). Skin: General: Skin is warm and dry. Neurological: General: No focal deficit present. Mental Status: She is alert and oriented to person, place, and time. Psychiatric: Mood and Affect: Mood normal. Behavior: Behavior normal. Thought Content: Thought content normal. Judgment: Judgment normal. Assessment and Plan Encounter Diagnosis ICD-10-CM 1. Sinobronchitis J32.9 ciprofloxacin HCl (CIPRO) 500 mg tablet J40 codeine-guaiFENesin (ROBITUSSIN AC) 10-100 mg/5 mL syrup 2. Cough R05.9 ciprofloxacin HCl (CIPRO) 500 mg tablet codeine-guaiFENesin (ROBITUSSIN AC) 10-100 mg/5 mL syrup 3. Bronchiectasis with acute exacerbation (HCC) J47.1 ciprofloxacin HCl (CIPRO) 500 mg tablet codeine-guaiFENesin (ROBITUSSIN AC) 10-100 mg/5 mL syrup Suspect contributing to cough Above issues addressed with patient. Patient involved in shared decision making for management of medical issues. History and medications reviewed. Epic updated as needed Refills and/or prescriptions taken care of and meds adjusted as indicated after reviewed history, exam and labs. Health Maintenance reviewed. Updated record and/or ordered tests as recorded. Encouraged on efforts at healthy diet and regular exercise and adequate sleep. Jannet Mitchell MD documented in this encounter [facility] 03-22-2023 Miscellaneous Notes Patient calls back and notified of below. Patient has appointment with provider today and will discuss this today. Desirae Case RN Message left on voicemail to call CC for update. Magalie Ponce LPN Below noted. Did not sound like had signs of infection since only symptoms were maybe runny nose and trouble breathing but was able to speak in full sentences. Noted she said she did not have a cough but requested cough med. Need to clarify with her. Suspect allergies and maybe asthma symptoms. Prior PFTs did not looks consistent with COPD and she has a diagnosis of bronchiectasis. Given chronic lung issues, she should have follow up with pulmonology--she used to follow up with Dr. Coy at [facility] but could establish with [facility] provider (Dr. Wallace) Check on patient on Tuesday. I pended albuterol inhaler and fluticasone nasal steroid to treat symptoms if she wants/needs (she might already have these from prior RXs given). Requested Prescriptions Pending Prescriptions Disp Refills albuterol HFA (PROVENTIL HFA, VENTOLIN HFA) 90 mcg/actuation inhaler 1 Each 1 Sig: Inhale 2 Puffs as instructed every 4 hours as needed for wheezing/shortness of breath. fluticasone (FLONASE) 50 mcg/actuation nasal spray 1 Each 1 Sig: Use 2 Sprays in each nostril once daily as needed for cold/allergy symptoms (runny nose or congestion). Rinse mouth after use. Jannet Mitchell MD Patient calling and states she needs to have Dr. Mitchell order her something to make her cold go down and to help her breathe better . Reports she has to work this weekend . Requesting possibly an antibiotic and cough medicine . Reports: -runny nose x 2 weeks -reports trouble breathing at rest and with activity, able to speak full sentences -Denies: cough, sinus congestion or pressure, no N/V/D, no headache or muscle aches, no fever or chills Of note pt called in on 03/01/23 for similar sx's and pt was advised, as well as recommended to schedule an appointment if not feeling improved or concerning symptoms. Pt did not make appt. Pt advised that PCP is [facility] . Advised that she should go to [facility] for evaluation this afternoon or to ER for any severe sx's. Also adsvised to call back for any questions or further concerns. Myriam Burns RN documented in this encounter [facility] 03-03-2023 Miscellaneous Notes Patient notified of providers message and verbalized understanding. She can try Delsym or Robitussin DM +/- cough drops [id number] for cough She could try an [id number] antihistamine such as loratadine or nasal spray such as fluticasone for nasal congestion and drainage. Recommend scheduling an appointment if not feeling improved or concerning symptoms. Pt called back in asking if provider had called anything in for her cough. I let her know that message had not been looked at yet. Pt asking what she could use OTC for cough if nothing gets called in. Please call Pt and advise. Pt calls to report she has had nasal congestion, runny nose, cough x 3 days. Pt denies fever or any other sx. Pt is asking for pcp to call something in for this cold . Pt reports she has eye surgery the beginning of next week and needs to be better before then. Advised pt providers do not usually call something to pharmacy for a cold since it is a virus. Pt states to tell her and she will know and know what to do . Geraldine Otero LPN documented in this encounter [facility] 03-02-2023 Miscellaneous Notes Pt and daughter called to assist Pts son Wilfredo Sherman in scheduling with Dr. Edgar. She indicated that Pt has talked to Dr Mitchell about taking him on as a pt. Please advise this is approved. documented in this encounter [facility] 02-24-2023 Note HNO ID: [id number] Author: Matthew Diaz PT Service: ? Author Type: Physical Therapist Type: Progress Notes Filed: 02/24/2023 11:53 AM Note Text: 02/24/2023 [facility] PHYSICAL THERAPY DISCONTINUANCE OF CARE Plan of Care Period: Start of Care Date: 12/09/22 Last Visit Date: 12/16/2022 Therapy Program: The following is a summary of the interventions provided for this episode of care; Therapeutic exercise and Manual therapy Assessment: Based on most recent visit, patient was progressing slower than expected toward functional goals based on documented subjective information on progress. Unable to formally assess goal achievement, as patient has not returned to therapy or scheduled additional follow-up appointments. Reason for Discontinuation of Care: Patient has not returned to therapy or scheduled additional follow-up appointments. Matthew Diaz, PT [facility] 02-21-2023 Note HNO ID: [id number] Author: Jannet Mitchell MD Service: ? Author Type: Physician Type: Progress Notes Filed: 03/24/2023 5:00 PM Note Text: This note was created using goodideazs. Subjective Harry Tran is a 82 year old female. Patient presents with: F/U 4 week SUBJECTIVE: Harry Tran is a 82 year old year old lady here today for 4 week follow up appointment for review of medical conditions. Increased neck pain Worse at night. Greene at bedtime helps when pain severe, especially after working. Also numbness in side of face and neck and arm. Dr. Azevedo says maybe pinched nerve. Will address with shots in neck after eye surgery. Getting eye surgery. Dr. Todd. Clonazepam as needed but not at same times as pain med--patient aware of risks. 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; was reactive depression after the of her mom, not active Diverticulosis of colon (without mention of hemorrhage) Esophageal reflux on wellchol Herpes simplex Hot flash, menopausal has been premarin since menopause Internal hemorrhoids without mention of complication Mitral valve disorders(424.0) MVP Nausea alone Other specified circulatory system disorders raynauds Psoriasis 07/03/2009 [facility] and [facility] Outpatient Medications Medication Sig polyethylene glycol 3350 (MIRALAX) 17 gram/dose powder Will try 1 to to 3 teaspoon daily to prevent constipation; increase dose as needed to treat constipation. gabapentin (NEURONTIN) 300 mg capsule Take 1-2 capsules by mouth daily at bedtime for 90 days. As directed clonazePAM (KLONOPIN) 0.5 mg tablet Take 1-2 tablets by mouth once daily as needed for up to 30 days. As directed. May fill today due to increase anxiety. Do not start before December 15, 2022. ondansetron (ZOFRAN) 4 mg tablet Take 1-2 tablets by mouth every 8 hours as needed for nausea/vomiting. traZODone (DESYREL) 50 mg tablet Take 1-2 tablets by mouth daily at bedtime. loperamide (IMODIUM) 2 mg cap(s) Take 1 capsule by mouth four times daily as needed. diclofenac, EC, (VOLTAREN) 75 mg EC tablet TAKE 1 PILL BY MOUTH WITH FOOD UP TO EVERY 12 HOURS NEEDED FOR PAIN (Patient not taking: Reported on 02/21/2023) valACYclovir (VALTREX) 1 gram Take 1 pill daily for 5 days for recurrences. Re-treat as needed (Patient not taking: Reported on 02/21/2023) hyoscyamine (LEVSIN) 0.125 mg tablet Take 1 tablet by mouth every 8 hours as needed. (Patient not taking: Reported on 02/03/2023) pantoprazole DR (PROTONIX) 40 mg tablet Take 40 mg by mouth once daily. (Patient not taking: Reported on 02/03/2023) dicyclomine (BENTYL) 20 mg tablet Take 1 tablet by mouth before meals and at bedtime. As directed (Patient not taking: Reported on 02/03/2023) sucralfate (CARAFATE) 1 gram tablet Take 1 tablet by mouth before meals and at bedtime. (Patient not taking: Reported on 02/03/2023) Simethicone 125 mg cap Take 1 capsule by mouth four times daily. (For Gas) (Patient not taking: Reported on 02/03/2023) No current facility-administered medications for this visit. Review of Systems Objective BP 122/73 Pulse 82 Temp 36.8 ?C (98.2 ?F) Resp 18 Wt 52.5 kg (115 lb 11.2 oz) SpO2 98% BMI 18.96 kg/m? Physical Exam Constitutional: Appearance: Normal appearance. HENT: Head: Normocephalic. Eyes: Conjunctiva/sclera: Conjunctivae normal. Cardiovascular: Rate and Rhythm: Normal rate and regular rhythm. Heart sounds: Normal heart sounds. Pulmonary: Effort: Pulmonary effort is normal. Breath sounds: Normal breath sounds. Musculoskeletal: Cervical back: Pain with movement and muscular tenderness (with some muscle tightness with spasm) present. Decreased range of motion. Skin: General: Skin is warm and dry. Neurological: General: No focal deficit present. Mental Status: She is alert and oriented to person, place, and time. Psychiatric: Mood and Affect: Mood normal. Behavior: Behavior normal. Thought Content: Thought content normal. Judgment: Judgment normal. Assessment and Plan Encounter Diagnosis ICD-10-CM 1. Cervical neck pain with evidence of disc disease M50.90 Discussed symptoms and conservaitve management. Consider PT and pain management or spine center evaluation 2. Psychophysiological insomnia F51.04 traZODone (DESYREL) 50 mg tablet gabapentin (NEURONTIN) 300 mg capsule clonazePAM (KLONOPIN) 0.5 mg tablet Doing okay on current med(s) 3. Anxiety F41.9 clonazePAM (KLONOPIN) 0.5 mg tablet 4. Strain of shoulder, unspecified laterality, initial encounter S46.482D HYDROcodone-acetaminophen (NORCO) 5-325 mg per tablet due to fall 5. Neck muscle spasm M62.838 6. Encounter for immunization Z23 INFLUENZA VACCINE, [place] (more content not included)... [facility] 02-03-2023 Note HNO ID: [id number] Author: Trena Gibson LPN Service: ? Author Type: LICENSED NURSE Type: Progress Notes Filed: 02/03/2023 3:20 PM Note Text: Review of Systems Constitutional: Negative for activity change, chills, fever and unexpected weight change. Gastrointestinal: Negative for bowel retention or incontinence Genitourinary: Negative for difficulty urinating. Negative for bladder retention or incontinence Musculoskeletal: Positive for neck pain and neck stiffness. Negative for arthralgias, back pain, gait problem, joint swelling and myalgias. Neurological: Positive for numbness. Negative for weakness and headaches. Psychiatric/Behavioral: Positive for sleep disturbance. Negative for dysphoric mood and suicidal ideas. The patient is nervous/anxious. [facility] 02-03-2023 Miscellaneous Notes Procedure(s) being scheduled: 1.Are you diabetic No 2. Are you on any blood thinners? No If yes, does it require a hold? No If yes, was approval letter sent? No 3. Are you taking any aspirin? No 4. Are you currently taking any antibiotics? No If yes, is it prophylactic or for treatment of an infection? NA 5. Do you have any allergies to latex? No 6. Do you have any allergies to seafood or shellfish? No 7. Do you have any allergies to x-ray dye? No 8. Did the physician instruct you to take any medication prior to your procedure? No 9. Does this procedure require a helper driver? Yes If yes, has patient been notified that a helper driver is needed and must be present at check in? Yes 10. Were the pre-procedure instructions explained and provided to the patient? Yes 11. Do you have a pacemaker? No 12. Do you have an internal stimulator of any kind? No If yes, please bring the remote with you to your procedure visit. 13. Have you received the COVID-19 Vaccine? Yes. If yes, date(s) received: 10/2021 (Patient should not receive a procedure including steroids 14 days prior to their first dose of the COVID vaccine. They should not receive any procedure containing steroids in the time frame between their 1st and 2nd doses of the COVID vaccine. They should not receive a procedure containing steroids 14 days after their 2nd dose of the COVID vaccine.) Mirella Morris documented in this encounter [facility] 02-03-2023 History of Present illness Narrative Review of Systems Constitutional: Negative for activity change, chills, fever and unexpected weight change. Gastrointestinal: Negative for bowel retention or incontinence Genitourinary: Negative for difficulty urinating. Negative for bladder retention or incontinence Musculoskeletal: Positive for neck pain and neck stiffness. Negative for arthralgias, back pain, gait problem, joint swelling and myalgias. Neurological: Positive for numbness. Negative for weakness and headaches. Psychiatric/Behavioral: Positive for sleep disturbance. Negative for dysphoric mood and suicidal ideas. The patient is nervous/anxious. Images from the original note were not included. 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 Notable Events During Course of Treatment: 02/01/2023 - Initial HPI: Referred by Jannet Mitchell MD, for evaluation & management of neck pain Duration: 6 months Sudden onset? no, Trauma? no Prior Treatments: Medications (See below), Modalities (eg. Heat, Ice), Physical Therapy , Home Exercise Program , and Activity Modification Reports has had vision changes in the left eye, eye surgeon following, surgery planned for this fall Has had two visits of PT, 12/09 and 12/16/2022, was told by eye doctor not to continue INTAKE PAIN ASSESSMENT 01/07/2023 02/03/2023 Are you having pain associated with your visit today? No Yes, Provider notified Pain Scales - Verbal (Numeric Rating or Visual Analog Scale) Pain Level - 5 Pain Location - - Description - Radiating;Sore;Pressure Duration Amount of Time - - Duration Units - Months Frequency - Intermittent Intervention/Comfort measure - Heat;Relaxation Comments - - Pain Assessment - - Medications: CURRENT Pain Medications: Klonopin 0.5mg Greene 5-325mg - takes intermittently Gabapentin 300mg qHS - for restless legs, does not make her tired Trazodone 50mg Valtrex Pain Medications Taken TO DATE (for the chief complaint(s)): Membrane Stabilizers: Neurontin (Gabapentin) and Effexor (Venlafaxine) NSAIDS: Motrin (Ibuprofen) and Mobic (Meloxicam) Opioids: Vicodin or Greene (Hydrocodone) Muscle Relaxants: Flexeril (Cyclobenzaprine) and Zanaflex (Tizanidine) - did not take, did not help Topicals: Voltaren Gel Other Prescription or OTC Pain Medications: Aspirin Anti-depressants: Effexor, Zoloft, and Trazodone Non-Pain Meds of Note: Klonopin, Valtrex Allergies: ALLERGIES Allergen Reactions Erythromycin GI Upset Nausea and vomiting Gabapentin Other: See Comments dizziness and weakness after one 300mg pill Keflex [Cephalexin] Diarrhea Diarrhea Macrobid [Nitrofura* Vomiting Mycins [Aminoglycos* Vomiting Omnicef [Cefdinir] Hives Bilateral arms and itching Penicillin G Rash Can tolerate amoxicillin but not augmentin Prednisone GI Upset states that made her sick in the past but does not know dose Sulfa (Sulfonamide * Vomiting Compliance: PDMP website checked and validated. All prescriptions have been APPROPRIATELY filled. No suspicious activity was identified. on 02/03/2023 by Gina Azevedo MD Greene 5/325, #21 (01/22/2023, 10/27, 09/25, 08/04, 03/31)... (PCP) Clonazepam 0.5mg, #45 (current) Recent Drug screens: [facility] 02/03/2023 Questionnaire GREENLIGHT Completed Date 02/03/2023 Questionnaire Opiod Risk Tool Completed Date 02/03/2023 Risk Assessment: NEREYDA-7: NEREYDA - 7 SCORES 02/03/2023 NEREYDA-7 Score 2 (0-4) minimal anxiety, (5-9) mild anxiety, (10-14) moderate anxiety, (15-21) severe anxiety PHQ-9: PHQ-9 01/06/2017 02/03/2023 Score 4 0 (0-4) minimal depression, (5-9) mild depression, (10-14) moderate depression, (15-19) moderately severe depression, (20-27) severe depression Opioid Risk Tool: Family History of Substance Abuse: 0 - No Personal History of Substance Abuse: 0 - No Age between 16-45: 0 - No History of Pre-Adolescence Sexual Abuse: 0 - No Psychological Disease: 0 - No Risk Total: 0 Total Score Risk Category: Low Risk 0-3 (0-3, low risk or no risk; 4-7, moderate risk, 8+, high risk) Diagnostic Studies: Relevant Imaging: Reviewed Personally on today's date, noted above MRI Spine Report No resulted procedures found. X-ray Cervical 10/2022 RESULT: Moderate foraminal encroachment on the left at C3-4 and C4-5 and on the right at C4-5. No fracture or prevertebral swelling. Straightening of the normal lordosis. Severe disc space narrowing at C5-6. Moderate disc space narrowing at C3-4, C4-5 and C6-7. Mild osteophytosis throughout. No fracture or prevertebral swelling. IMPRESSION: DEGENERATIVE CHANGES DESCRIBED Electrodiagnostic Study (EMG): None Recent Labs: Creatinine Date Value Ref Range Status 10/25/2019 1.02 (H) 0.58 - 0.96 mg/dL Final No results found for: GFR No results found for: PCGLUCOSE Pain Procedures: DATE PROCEDURE IMPROVEMENT None Current Medications, Past Medical History, Past Surgical History, Family History, Social History and Review of Systems: On today's date, noted above, I have confirmed and edited as necessary, the PFSH and ROS obtained by others. Physical Exam: 02/03/23 1433 Pulse: 86 Resp: 18 SpO2: 96% Constitutional:normal weight Eyes: Conjunctiva clear. No discharge from eyes Cardiovascular: Appears well perfused Lymphatic: No visible regional lymphadenopathy Skin: No visible rashes or ecchymosis Psychiatric: Full affect, Alert, Pleasant Neuro-Upper: Sensation: Grossly intact to light touch in both upper limbs (C5-T1) dermatomes Strength: Deltoid (C5): 5 left, 5 Right Biceps (C6): 5 left, 5 Right Triceps (C7): 5 left, 5 Right Wrist Extensors (C8): 5 left, 5 Right Abduct. Pollicis Brevis (T1): 5 left, 5 Right Muscle Tone: Normal and symmetric throughout, without clonus Reflexes: Normal 2+ and symmetric biceps, triceps, brachioradialis Cordon: Negative (Normal) bilaterally Musculoskeletal-Upper: Inspection: Symmetric without atrophy Palpation: Cervical Paraspinal Tenderness: Concordant Greater Occipital Nerves: no tenderness in overlying tissue Paraspinal spasm: Moderate Range of Motion: Flexion/Extension: Normal Without end range pain Lateral Bending: Decreased 50% With end range pain Lateral Rotation: Decreased 50% With end range pain Diagnoses: (M47.812) Cervical spondylosis without myelopathy (primary encounter diagnosis) (M54.12) Cervical radiculopathy (M48.02) Cervical stenosis of spinal canal Pertinent Past Medical History: Sleep related leg cramps, RLS, Cervical neck pain with evidence of disc disease, Left arm numbness, Face numbness, H/O percutaneous angioplasty of SMA, Asthma, Esophageal reflux, Herpes simplex disease, Anxiety, Impression: 82 year old female presents with complaint(s) of left-sided neck pain, facet-mediated. Facial symptoms may be atypical myofascial-referred. Plan: Harry Tran would benefit from the following to reach personal goals for decreasing pain, improving function and work participation, and/or improving quality of life: -Interventional Procedure: Medial branch blocks, left C3-4,4-5 x 2, RFA if positive x 2 under fluoroscopic guidance The risks, benefits, alternative treatment options and prognosis of the procedure were discussed and all of the patient's questions/concerns were addressed to the patient s satisfaction. Patient was advised that they will need a helper driver for after the procedure and that if no helper driver is available and on site at the time of the procedure, the procedure will be cancelled. For any anticoagulants, the patient was advised on whether to continue or hold for this procedure. The patient expressed understanding and gave verbal consent to proceed. Medication(s): Voltaren 75mg BID PRN - will stop if upsets stomach Discussed no opioids given is taking regular Benzodiazepines Additional Studies: None Referrals: No additional considerations at present Functional Scientologist: Physical Therapy (Land-based) - resume, no decompression or traction please Depending on response to the above plan, consider: RFA; Increase Gabapentin to TID (advised, declined today); MRI -Follow-up: 3 months Attribution: In addition to reviewing the information noted above, some elements copied from my most recent clinical note(s), including the physical exam (completed in entirety today), and the impression and plan sections, have been updated where appropriate. All reflect current medical decision making from today's date. Gina Azevedo MD Pain Management [facility] documented in this encounter [facility] 02-01-2023 Note HNO ID: [id number] Author: Gina Azevedo MD Service: ? 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 Notable Events During Course of Treatment: 02/01/2023 - Initial HPI: Referred by Jannet Mitchell MD, for evaluation AND management of neck pain Duration: 6 months Sudden onset? no, Trauma? no Prior Treatments: Medications (See below), Modalities (eg. Heat, Ice), Physical Therapy , Home Exercise Program , and Activity Modification Reports has had vision changes in the left eye, eye surgeon following, surgery planned for this fall Has had two visits of PT, 12/09 and 12/16/2022, was told by eye doctor not to continue INTAKE PAIN ASSESSMENT 01/07/2023 02/03/2023 Are you having pain associated with your visit today? No Yes, Provider notified Pain Scales - Verbal (Numeric Rating or Visual Analog Scale) Pain Level - 5 Pain Location - - Description - Radiating;Sore;Pressure Duration Amount of Time - - Duration Units - Months Frequency - Intermittent Intervention/Comfort measure - Heat;Relaxation Comments - - Pain Assessment - - Medications: CURRENT Pain Medications: Klonopin 0.5mg Greene 5-325mg - takes intermittently Gabapentin 300mg qHS - for restless legs, does not make her tired Trazodone 50mg Valtrex Pain Medications Taken TO DATE (for the chief complaint(s)): Membrane Stabilizers: Neurontin (Gabapentin) and Effexor (Venlafaxine) NSAIDS: Motrin (Ibuprofen) and Mobic (Meloxicam) Opioids: Vicodin or Greene (Hydrocodone) Muscle Relaxants: Flexeril (Cyclobenzaprine) and Zanaflex (Tizanidine) - did not take, did not help Topicals: Voltaren Gel Other Prescription or OTC Pain Medications: Aspirin Anti-depressants: Effexor, Zoloft, and Trazodone Non-Pain Meds of Note: Klonopin, Valtrex Allergies: ALLERGIES Allergen Reactions Erythromycin GI Upset Nausea and vomiting Gabapentin Other: See Comments dizziness and weakness after one 300mg pill Keflex [Cephalexin] Diarrhea Diarrhea Macrobid [Nitrofura* Vomiting Mycins [Aminoglycos* Vomiting Omnicef [Cefdinir] Hives Bilateral arms and itching Penicillin G Rash Can tolerate amoxicillin but not augmentin Prednisone GI Upset states that made her sick in the past but does not know dose Sulfa (Sulfonamide * Vomiting Compliance: PDMP website checked and validated. All prescriptions have been APPROPRIATELY filled. No suspicious activity was identified. on 02/03/2023 by MD Loretta Polk 5/325, #21 (01/22/2023, 10/27, 09/25, 08/04, 03/31)... (PCP) Clonazepam 0.5mg, #45 (current) Recent Drug screens: AG SPINE COMBINATION 02/03/2023 Questionnaire GREENLIGHT Completed Date 02/03/2023 Questionnaire Opiod Risk Tool Completed Date 02/03/2023 Risk Assessment: NEREYDA-7: NEREYDA - 7 SCORES 02/03/2023 NEREYDA-7 Score 2 (0-4) minimal anxiety, (5-9) mild anxiety, (10-14) moderate anxiety, (15-21) severe anxiety PHQ-9: PHQ-9 01/06/2017 02/03/2023 Score 4 0 (0-4) minimal depression, (5-9) mild depression, (10-14) moderate depression, (15-19) moderately severe depression, (20-27) severe depression Opioid Risk Tool: Family History of Substance Abuse: 0 - No Personal History of Substance Abuse: 0 - No Age between 16-45: 0 - No History of Pre-Adolescence Sexual Abuse: 0 - No Psychological Disease: 0 - No Risk Total: 0 Total Score Risk Category: Low Risk 0-3 (0-3, low risk or no risk; 4-7, moderate risk, 8+, high risk) Diagnostic Studies: Relevant Imaging: Reviewed Personally on today's date, noted above MRI Spine Report No resulted procedures found. X-ray Cervical 10/2022 RESULT: Moderate foraminal encroachment on the left at C3-4 and C4-5 and on the right at C4-5. No fracture or prevertebral swelling. Straightening of the normal lordosis. Severe disc space narrowing at C5-6. Moderate disc space narrowing at C3-4, C4-5 and C6-7. Mild osteophytosis throughout. No fracture or prevertebral swelling. IMPRESSION: DEGENERATIVE CHANGES DESCRIBED Electrodiagnostic Study (EMG): None Recent Labs: Creatinine Date Value Ref Range Status 10/25/2019 1.02 (H) 0.58 - 0.96 mg/dL Final No results found for: GFR No results found for: PCGLUCOSE Pain Procedures: DATE PROCEDURE IMPROVEMENT None Current Medications, Past Medical History, Past Surgical Histo (more content not included)... [facility] 01-22-2023 Miscellaneous Notes Last RX was October. Has not needed to take daily or frequently for pain flare ups. Helps when has episodes of severe pain without needing to take routinely. Will okay RX and discuss at follow up appointment how things are going with work and pain issues. The following approved medication requests have been transmitted electronically. Requested Prescriptions Signed Prescriptions Disp Refills HYDROcodone-acetaminophen (NORCO) 5-325 mg per tablet 21 tablet 0 Sig: Take 1 tablet by mouth every 8 hours as needed for pain for up to 7 days. Authorizing Provider: JANNET MITCHELL MD Patient asking if Dr. Mitchell would send script for [place] [facility]. Reports she has to work this weekend and she will be lifting things which causes her neck and shoulder discomfort. Pt states Dr. Mitchell knows me and will know what I need . Pt states she has to work. States if she doesn't get pain medicine to help her through this weekend and week then she will be in a lot of pain. Pt will be seeing Dr. Mitchell on 02/04. Script pended. Thank you. documented in this encounter [facility] 01-20-2023 Miscellaneous Notes Patient calling with health information: patient requesting health information about pain medication , reviewed information from [facility] , and verbalized understanding of information provided. Patient denies any new or worsening symptoms of which a provider is not aware:Yes Patient questioned if hydrocodone is a pain medication. Patient has complaints of neck pain - has refused triage at this time. Source for information: [email or web address] GO TO THE EMERGENCY ROOM OR CALL 911 IF: * You develop any new symptoms * Your condition worsens * You are concerned or anxious about your condition for any other reason. If you have any questions, you can call Nurse fire protection engineer back. documented in this encounter [facility] 01-07-2023 Note HNO ID: [id number] Author: Jannet Mitchell MD Service: ? Author Type: Physician Type: Progress Notes Filed: 02/08/2023 10:53 AM Note Text: This note was created using [employer]. Subjective Harry Tran is a 82 year old female. Patient presents with: Abdominal Pain: Abdominal pain lower x2 weeks SUBJECTIVE: Harry Tran is a 82 year old year old lady here today for follow up appointment for review of medical conditions. Pain resolved and then recurred starting 2 weeks ago. No heartburn or burn. Lower abdomen pain. Doubles her over. Comes and goes. Lasts for hours. Any time of day. Not associated with eating. Not better with eating. No nausea or vomiting. No diarrhea Had to take Miralax for constipation to move bowels recently. Still hard for a few days then takes something. Took Miralax 1 packet plus some more and moved bowels today. 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; was reactive depression after the of her mom, not active Diverticulosis of colon (without mention of hemorrhage) Esophageal reflux on [facility] Herpes simplex Hot flash, menopausal has been premarin since menopause Internal hemorrhoids without mention of complication Mitral valve disorders(424.0) MVP Nausea alone Other specified circulatory system disorders raynauds Psoriasis 07/03/2009 Unspecified gastritis and gastroduodenitis on [facility] Current Outpatient Medications Medication Sig gabapentin (NEURONTIN) 300 mg capsule Take 1-2 capsules by mouth daily at bedtime for 90 days. As directed clonazePAM (KLONOPIN) 0.5 mg tablet Take 1-2 tablets by mouth once daily as needed for up to 30 days. As directed. May fill today due to increase anxiety. Do not start before December 15, 2022. ondansetron (ZOFRAN) 4 mg tablet Take 1-2 tablets by mouth every 8 hours as needed for nausea/vomiting. traZODone (DESYREL) 50 mg tablet Take 1-2 tablets by mouth daily at bedtime. hyoscyamine (LEVSIN) 0.125 mg tablet Take 1 tablet by mouth every 8 hours as needed. (Patient not taking: Reported on 01/07/2023) tiZANidine (ZANAFLEX) 4 mg tablet Take 0.5-1 tablets by mouth twice daily as needed (muscle spasms). (Patient not taking: Reported on 01/07/2023) pantoprazole DR (PROTONIX) 40 mg tablet Take 40 mg by mouth once daily. (Patient not taking: Reported on 01/07/2023) dicyclomine (BENTYL) 20 mg tablet Take 1 tablet by mouth before meals and at bedtime. As directed (Patient not taking: Reported on 01/07/2023) sucralfate (CARAFATE) 1 gram tablet Take 1 tablet by mouth before meals and at bedtime. (Patient not taking: Reported on 01/07/2023) loperamide (IMODIUM) 2 mg cap(s) Take 1 capsule by mouth four times daily as needed. (Patient not taking: Reported on 01/07/2023) Simethicone 125 mg cap Take 1 capsule by mouth four times daily. (For Gas) (Patient not taking: Reported on 10/27/2022) No current facility-administered medications for this visit. Review of Systems Objective BP (P) 122/74 (BP Site: Left Arm, BP Position: Sitting, BP Cuff Size: Regular Adult) Pulse (P) 78 Physical Exam Constitutional: Appearance: Normal appearance. HENT: Head: Normocephalic. Eyes: Conjunctiva/sclera: Conjunctivae normal. Cardiovascular: Rate and Rhythm: Normal rate and regular rhythm. Heart sounds: Normal heart sounds. Pulmonary: Effort: Pulmonary effort is normal. Breath sounds: Normal breath sounds. Abdominal: General: There is no distension. Palpations: There is no mass. Tenderness: There is abdominal tenderness (mild generalized). There is no guarding. Skin: General: Skin is warm and dry. Neurological: General: No focal deficit present. Mental Status: She is alert and oriented to person, place, and time. Psychiatric: Mood and Affect: Mood normal. Behavior: Behavior normal. Thought Content: Thought content normal. Judgment: Judgment normal. Assessment and Plan Encounter Diagnosis ICD-10-CM 1. Lower abdominal pain R10.30 See below 2. Constipation, unspecified constipation type K59.00 polyethylene glycol 3350 (MIRALAX) 17 gram/dose powder See below 3. Recurrent HSV (herpes simplex virus) B00.9 valACYclovir (VALTREX) 1 gram See below Above issues addressed with patient. Patient involved in shared decision making for management of medical issues. History and medications reviewed. Epic updated as needed Refills and/or prescriptions taken care of and meds adjusted as indicated after reviewed history, exam and labs. Work on getting bowels moving routinely. HSV with recurrence after none for several months. Further evaluation and treatment as indicated. Jannet Mitchell MD [facility] 12-16-2022 Note HNO ID: [id number] Author: Matthew Diaz PT Service: ? Author Type: Physical Therapist Type: Progress Notes Filed: 12/16/2022 1:59 PM Note Text: Episode Visit Count: 2 Therapist That Will Accept/Oversee The Plan Of Care: Matthew Diaz Start of Care Date: 12/09/22 Onset Date: 09/09/22 Plan of Care Certification Date: 12/09/22 Next Certification Due Date: 01/13/23 Patient Identified by Name and Date of : Yes REHABILITATION AND SPORTS THERAPY PHYSICAL THERAPY TREATMENT NOTE ASSESSMENT: Harry Tran tolerated the session with decreased symptoms. She demonstrated good tolerance to all manual therapy techniques. The patient will continue to benefit from ongoing skilled physical therapy to progress toward set goals. PLAN FOR NEXT VISIT: MT SUBJECTIVE: Patient Reason for Visit: Not feeling improved. The neck pain is worse. Pain: Pain Pain Location: Neck - Left OBJECTIVE MEASURES WITH LEVEL OF FUNCTION: Cervical L rotation mod limitation that improved to min limitation after mobilizations were performed TREATMENT: Therapeutic Exercise: 1: Discussed cervical flexion stretch x 30 sec Skilled Intervention: Patient was educated in proper exercise technique and purpose for exercises. Correct performance of therapeutic exercises was facilitated with verbal and visual cuing. Manual Therapy: 1: Firm STM along R cervical paraspinals 2: Cervical traction in supine x 10 min 3: Bowstringing cervical paraspinals 4: Opening L C3/C4 grade 3 x 20 Skilled Intervention: Manual skills to improve joint mobility, ROM, and decrease pain. Utilized anatomy knowledge of the therapist, and assessment of patient's response to intervention. Billing Therapeutic Exercise Treatment Minutes: 2 Manual TherapyTreatment Minutes: 43 Total Treatment Time Minutes (timed/untimed): 45 Session Start Time : 1315 Session Stop Time : 1400 Matthew Diaz PT [facility] 12-16-2022 History of Present illness Narrative Episode Visit Count: 2 Therapist That Will Accept/Oversee The Plan Of Care: Matthew Diaz Start of Care Date: 12/09/22 Onset Date: 09/09/22 Plan of Care Certification Date: 12/09/22 Next Certification Due Date: 01/13/23 Patient Identified by Name and Date of : Yes REHABILITATION AND SPORTS THERAPY PHYSICAL THERAPY TREATMENT NOTE ASSESSMENT: Harry Tran tolerated the session with decreased symptoms. She demonstrated good tolerance to all manual therapy techniques. The patient will continue to benefit from ongoing skilled physical therapy to progress toward set goals. PLAN FOR NEXT VISIT: MT SUBJECTIVE: Patient Reason for Visit: Not feeling improved. The neck pain is worse. Pain: Pain Pain Location: Neck - Left OBJECTIVE MEASURES WITH LEVEL OF FUNCTION: Cervical L rotation mod limitation that improved to min limitation after mobilizations were performed TREATMENT: Therapeutic Exercise: 1: Discussed cervical flexion stretch x 30 sec Skilled Intervention: Patient was educated in proper exercise technique and purpose for exercises. Correct performance of therapeutic exercises was facilitated with verbal and visual cuing. Manual Therapy: 1: Firm STM along R cervical paraspinals 2: Cervical traction in supine x 10 min 3: Bowstringing cervical paraspinals 4: Opening L C3/C4 grade 3 x 20 Skilled Intervention: Manual skills to improve joint mobility, ROM, and decrease pain. Utilized anatomy knowledge of the therapist, and assessment of patient's response to intervention. Billing Therapeutic Exercise Treatment Minutes: 2 Manual TherapyTreatment Minutes: 43 Total Treatment Time Minutes (timed/untimed): 45 Session Start Time : 1315 Session Stop Time : 1400 Matthew Diaz PT documented in this encounter [facility] 12-11-2022 Note HNO ID: [id number] Author: Gemini Maldonado APRN.CLIENT STRATEGIST Service: ? Author Type: Nurse Practitioner Type: Progress Notes Filed: 12/11/2022 11:40 AM Note Text: Subjective Sore Throat Associated symptoms include congestion and coughing. Pertinent negatives include no ear pain. Cough Associated symptoms include sore throat. Pertinent negatives include no chills, no ear pain and no myalgias. Harry Tran is a 82 year old female who presents with a sore throat and cold symptoms for the past 4 or 5 days. She has had a cough, congestion, runny and stuffy nose. Cough is productive of sputum. She rates her sore throat pain 6/10. She denies fever. She has not taken any medication for her symptoms. Review of Systems Constitutional: Negative for chills and fever. HENT: Positive for congestion and sore throat. Negative for ear pain. Respiratory: Positive for cough and sputum production. Cardiovascular: Negative. Musculoskeletal: Negative for myalgias. BP 110/70 Pulse 104 Resp 18 Wt 49.9 kg (110 lb) SpO2 96% BMI 18.03 kg/m? 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; was reactive depression after the of her mom, not active Diverticulosis of colon (without mention of hemorrhage) Esophageal reflux on wellchol Herpes simplex Hot flash, menopausal has been premarin since menopause Internal hemorrhoids without mention of complication Mitral valve disorders(424.0) MVP Nausea alone Other specified circulatory system disorders raynauds Psoriasis 07/03/2009 Unspecified gastritis and gastroduodenitis on wellchol PAST SURGICAL HISTORY Procedure Laterality Date APPENDECTOMY laparotomy CHOLECYSTECTOMY Cholecystectomy COLONOSCOPY FLX DX W/COLLJ SPEC WHEN PFRMD 05/26/2010 COLONOSCOPY GEN ANES 07/22/2020 EGD 07/22/2020 EGD 12/18/2014 EGD TRANSORAL BIOPSY SINGLE/MULTIPLE 08/26/2009 ESOPHAGOGASTRODUODENOSCOPY TRANSORAL DIAGNOSTIC 11/04/2000 EGD ESOPHAGOGASTRODUODENOSCOPY TRANSORAL DIAGNOSTIC 11/16/2004 EGD ESOPHAGOGASTRODUODENOSCOPY TRANSORAL DIAGNOSTIC 05/28/2008 EGD ESOPHAGOGASTRODUODENOSCOPY TRANSORAL DIAGNOSTIC 09/19/2012 EGD ESOPHAGOGASTRODUODENOSCOPY TRANSORAL DIAGNOSTIC 08/03/2013 EGD EXCISE;BARTHOLINS GLAND/CYST 07/16/2021 PAST SURGICAL HISTORY OF 05/23/1978 Left salpingo-oophorectomy; laparotomy PAST SURGICAL HISTORY OF 05/23/1979 excision right supacavicular lipoma PAST SURGICAL HISTORY OF Approx 1960 breast implants REMOVAL OF BREAST IMPLANT Bilateral 10/17/2015 TOTAL ABDOMINAL HYSTERECT W/WO RMVL TUBE OVARY age 29 Hysterectomy, MARIA ISABEL/USO ALLERGIES Erythromycin, Gabapentin, Keflex [Cephalexin], Macrobid [Nitrofurantoin Monohyd/M-Cryst], Mycins [Aminoglycosides], Omnicef [Cefdinir], Penicillin G, Prednisone, and Sulfa (Sulfonamide Antibiotics) MEDICATIONS gabapentin (NEURONTIN) 300 mg capsule Take 1-2 capsules by mouth daily at bedtime for 90 days. As directed hyoscyamine (LEVSIN) 0.125 mg tablet Take 1 tablet by mouth every 8 hours as needed. [START ON 12/15/2022] clonazePAM (KLONOPIN) 0.5 mg tablet Take 1-2 tablets by mouth once daily as needed for up to 30 days. As directed. May fill today due to increase anxiety. Do not start before December 15, 2022. tiZANidine (ZANAFLEX) 4 mg tablet Take 0.5-1 tablets by mouth twice daily as needed (muscle spasms). pantoprazole DR (PROTONIX) 40 mg tablet Take 40 mg by mouth once daily. dicyclomine (BENTYL) 20 mg tablet Take 1 tablet by mouth before meals and at bedtime. As directed ondansetron (ZOFRAN) 4 mg tablet Take 1-2 tablets by mouth every 8 hours as needed for nausea/vomiting. sucralfate (CARAFATE) 1 gram tablet Take 1 tablet by mouth before meals and at bedtime. traZODone (DESYREL) 50 mg tablet Take 1-2 tablets by mouth daily at bedtime. loperamide (IMODIUM) 2 mg cap(s) Take 1 capsule by mouth four times daily as needed. doxycycline (VIBRA-TABS) 100 mg tablet Take 1 tablet by mouth twice daily. (Patient not taking: Reported on 11/30/2022) Simethicone 125 mg cap Take 1 capsule by mouth four times daily. (For Gas) (Patient not taking: Reported on 10/27/2022) FAMILY HISTORY Problem Relation Age of Onset Alzheimer's Disease Mother Heart Father at age 57 Breast Cancer Maternal Grandmother Heart Paternal Grandfather Asthma No Family History COPD No Family History Emphysema No Family History Social History Tobacco Use Smoking status: Former Types: Cigarettes Quit date: 05/23/1978 Years since quittin.5 Smokeless tobacco: Never Vaping Use Vaping Use: Never used Substance Use Topics Alcohol use: No Drug use: No Objective Physical Exam Vitals and nursing note reviewed. Constitutional: General: She is not in acute distress. Appearance: Normal (more content not included)... [facility] 12-09-2022 Miscellaneous Notes Addended by: MATTHEW DIAZ on: 12/09/2022 02:47 PM Modules accepted: Orders documented in this encounter [facility] 12-09-2022 Note HNO ID: [id number] Author: Matthew Diaz PT Service: ? Author Type: Physical Therapist Type: Progress Notes Filed: 12/09/2022 2:45 PM Note Text: Episode Visit Count: 1 Therapist That Will Accept/Oversee The Plan Of Care: Matthew Diaz Start of Care Date: 12/09/22 Onset Date: 09/09/22 Plan of Care Certification Date: 12/09/22 Next Certification Due Date: 01/13/23 Patient Identified by Name and Date of : Yes REHABILITATION AND SPORTS THERAPY PHYSICAL THERAPY EVALUATION PLAN OF CARE: Assessment: Harry Tran presents with chief complaint of Neck pain, L arm numbness, and L facial numbness(maxilla and masseter region) that interferes with nothing . She presents with impairments in independence in exercise, range of motion, and symptom management. Patient did not complete the PROMIS? (Patient Reported Outcome Measures Information System). Prognosis for therapy is Good due to: current objective clinical presentation . Pt demonstrates no reproduction of L arm pain/numbness throughout session. Pt demo's decreased cervical mobility with L rotation. Numbness in the L maxilla/mandible changes with sitting vs supine position and with pressure along the masseter per pt report. L masseter is very tight with obvious trigger point palpated. She will benefit from skilled therapy services to meet the goals established for this plan of care as noted below. Goals for Episode of Care: created on 12/09/22 through 02/03/23 Independent in a Home Exercise Program. Pt will report decreased pain in the cervical region with all ADL's by 50% or greater in 8 weeks or less. Pt will report no longer having L arm numbness Patient Goals: Lessen the pain and reduce the numbness Planned Interventions, Frequency, and Duration: Current Frequency: 1x/week Duration: 4 weeks Total Number of Visits Planned: 4 Planned Treatment Interventions: Therapeutic exercise (59890), Neuromuscular re-education (10047), Manual therapy (74217), Self-penitentiary management (39443), Patient/Family/Caregiver Education PLAN FOR NEXT VISIT: Assess reaction to the HEP. STM over masseter on the L. Opening of L cervical facet joints. Further assess TMJ and upper C-spine. Patient demonstrates good understanding of plan of care and treatment. The above goals and plan of care were discussed and agreed upon by patient/family. SUBJECTIVE: Harry Trna is a 82 year old female seen today for Numbness in the L face and arm. MRI and no signs of stroke. Pinch nerve in the neck suspected. Does have neck pain. Hard to say what makes the numbness worse. Stress might make it worse. Sleep is off and on pretty good . The pain is there all day. Not sure what aggravates or alleviates the pain. Lately the L arm has not been numb as frequently. Patient Goals: Lessen the pain and reduce the numbness Functional Limitations: nothing Prior Level of Function: Independent without limitations Intake Information: Prescription present Previous Treatment: Heat Pain: Pain Pain Location: Neck - Left PROMIS Scales T-scores: mean of general population = 50. 5 points is clinically meaningfully difference Percentiles provide an indication of how the patient's score ranks in relation to the general population. Higher percentile rankings indicate better function/quality of life. 50th percentile is the average of the general population and indicates half of respondents had a worse score. OBJECTIVE MEASURES WITH LEVEL OF FUNCTION: Cervical Spine ROM Cervical ROM : Limitation AROM Cervical Flexion AROM: Normal Cervical Extension AROM: Minimal limitation Cervical Side-Bend Right AROM: Moderate limitation Cervical Side-Bend Left AROM: Moderate limitation Cervical Rotation Right AROM: Normal Cervical Rotation Left AROM: Minimal limitation UE AROM R UE AROM: WNL L UE AROM: WNL Special Tests - Cervical Cervical Special Tests: Cervical Distraction Cervical Distraction: (Improves facial numbness per pt report) Education: Education Learning Preferences: Demonstration, Explanation, Performance, Printed Materials Barriers: None Learning/educational needs: Home exercise program, Plan of Care Education Provided: Yes, see treatment interventions for education provided Education Provided To: Patient Education Mode/Type: Demonstration, Explanation/Discussion, Literature/Printed Materials, Performance Response to Education/Teach Back: States/Identifies, Return Demonstration TREATMENT: PT Treatment Interventions: Therapeutic Exercise, Manual Therapy Evaluation Therapeutic Exercise: 1: Discussed therapy goals, exam findings, purpose of the HEP. 2: Seated L scalene stretch 2 x 30 seconds Skilled Intervention: Patient was educated in proper exercise technique and purpose for exercises. Correct performance of therapeutic exercises was facilitated with verbal and visual cuing. Manual Therapy: 1: STM over L massete (more content not included)... [facility] 12-09-2022 History of Present illness Narrative Episode Visit Count: 1 Therapist That Will Accept/Oversee The Plan Of Care: Matthew Diaz Start of Care Date: 12/09/22 Onset Date: 09/09/22 Plan of Care Certification Date: 12/09/22 Next Certification Due Date: 01/13/23 Patient Identified by Name and Date of : Yes REHABILITATION AND SPORTS THERAPY PHYSICAL THERAPY EVALUATION PLAN OF CARE: Assessment: Harry Tran presents with chief complaint of Neck pain, L arm numbness, and L facial numbness(maxilla and masseter region) that interferes with nothing . She presents with impairments in independence in exercise, range of motion, and symptom management. Patient did not complete the PROMIS (Patient Reported Outcome Measures Information System). Prognosis for therapy is Good due to: current objective clinical presentation . Pt demonstrates no reproduction of L arm pain/numbness throughout session. Pt demo's decreased cervical mobility with L rotation. Numbness in the L maxilla/mandible changes with sitting vs supine position and with pressure along the masseter per pt report. L masseter is very tight with obvious trigger point palpated. She will benefit from skilled therapy services to meet the goals established for this plan of care as noted below. Goals for Episode of Care: created on 12/09/22 through 02/03/23 Independent in a Home Exercise Program. Pt will report decreased pain in the cervical region with all ADL's by 50% or greater in 8 weeks or less. Pt will report no longer having L arm numbness Patient Goals: Lessen the pain and reduce the numbness Planned Interventions, Frequency, and Duration: Current Frequency: 1x/week Duration: 4 weeks Total Number of Visits Planned: 4 Planned Treatment Interventions: Therapeutic exercise (51027), Neuromuscular re-education (72306), Manual therapy (61690), Self-penitentiary management (81016), Patient/Family/Caregiver Education PLAN FOR NEXT VISIT: Assess reaction to the HEP. STM over masseter on the L. Opening of L cervical facet joints. Further assess TMJ and upper C-spine. Patient demonstrates good understanding of plan of care and treatment. The above goals and plan of care were discussed and agreed upon by patient/family. SUBJECTIVE: Harry Tran is a 82 year old female seen today for Numbness in the L face and arm. MRI and no signs of stroke. Pinch nerve in the neck suspected. Does have neck pain. Hard to say what makes the numbness worse. Stress might make it worse. Sleep is off and on pretty good . The pain is there all day. Not sure what aggravates or alleviates the pain. Lately the L arm has not been numb as frequently. Patient Goals: Lessen the pain and reduce the numbness Functional Limitations: nothing Prior Level of Function: Independent without limitations Intake Information: Prescription present Previous Treatment: Heat Pain: Pain Pain Location: Neck - Left PROMIS Scales T-scores: mean of general population = 50. 5 points is clinically meaningfully difference Percentiles provide an indication of how the patient's score ranks in relation to the general population. Higher percentile rankings indicate better function/quality of life. 50th percentile is the average of the general population and indicates half of respondents had a worse score. OBJECTIVE MEASURES WITH LEVEL OF FUNCTION: Cervical Spine ROM Cervical ROM : Limitation AROM Cervical Flexion AROM: Normal Cervical Extension AROM: Minimal limitation Cervical Side-Bend Right AROM: Moderate limitation Cervical Side-Bend Left AROM: Moderate limitation Cervical Rotation Right AROM: Normal Cervical Rotation Left AROM: Minimal limitation UE AROM R UE AROM: WNL L UE AROM: WNL Special Tests - Cervical Cervical Special Tests: Cervical Distraction Cervical Distraction: (Improves facial numbness per pt report) Education: Education Learning Preferences: Demonstration, Explanation, Performance, Printed Materials Barriers: None Learning/educational needs: Home exercise program, Plan of Care Education Provided: Yes, see treatment interventions for education provided Education Provided To: Patient Education Mode/Type: Demonstration, Explanation/Discussion, Literature/Printed Materials, Performance Response to Education/Teach Back: States/Identifies, Return Demonstration TREATMENT: PT Treatment Interventions: Therapeutic Exercise, Manual Therapy Evaluation Therapeutic Exercise: 1: Discussed therapy goals, exam findings, purpose of the HEP. 2: Seated L scalene stretch 2 x 30 seconds Skilled Intervention: Patient was educated in proper exercise technique and purpose for exercises. Correct performance of therapeutic exercises was facilitated with verbal and visual cuing. Manual Therapy: 1: STM over L masseter circular pattern working on TP in superior portion of the muscle 2: Cervical traction x 3 min 3: Discussed self massage over the R upper thoracic parapsinals using lacrosse ball on wall with proper technique, duration,a nd intensity. Skilled Intervention: Manual skills to improve joint mobility, ROM, and decrease pain. Utilized anatomy knowledge of the therapist, and assessment of patient's response to intervention. Billing * Evaluation Low Complexity: 1 Unit Therapeutic Exercise Treatment Minutes: 12 Manual TherapyTreatment Minutes: 13 Total Treatment Time Minutes (timed/untimed): 47 Matthew Diaz PT documented in this encounter [facility] 12-08-2022 Miscellaneous Notes Spoke with patient and she had not picked up the Levsin. Gave her general idea pricing for this medication with [facility]. Can we see if she was able to get the non sustained release Levbid which would be Levsin. Patient has a current script for dicyclomine 20 mg before each meal and at bedtime. Will see if not SR is covered. If see if she has tried taking the Bentyl (dicyclomine) Patient calling to say that Levbid is too expensive even with [facility]. Asking if there is a less expensive alternative? Dacia Sanabria, RN documented in this encounter [facility] 12-06-2022 Miscellaneous Notes Patient has been identified by name and date of : Yes, Provider Dr. Mitchell Date 12/06/22 Time 12:13 pm Patient phones for refill(s): Requested Prescriptions Pending Prescriptions Disp Refills gabapentin (NEURONTIN) 300 mg capsule 60 capsule 2 Sig: Take 1-2 capsules by mouth daily at bedtime for 90 days. As directed Date of last office visit in primary care: 11/30/22 Last 2 Encounter Wt Readings: Date: Wt: 11/30/2022 51.7 kg (114 lb) 11/15/2022 51.7 kg (114 lb) Previous labs/tests for medication: Not applicable Please advise. Thank you. Edith Chester LPM documented in this encounter [facility] 11-30-2022 Note HNO ID: [id number] Author: Jannet Mitchell MD Service: ? Author Type: Physician Type: Progress Notes Filed: 01/02/2023 9:21 PM Note Text: This note was created using goodideazs. Subjective Harry Tran is a 82 year old female. No chief complaint on file. SUBJECTIVE: Harry Tran is a 82 year old year old lady here today for follow up appointment for review of medical conditions. Waiting for PT and pain management appointments. Tight in neck muscles. Was better till son in hospital on vent. Told to be taking 3 Creon per day per GI. Taking 1 daily to 2 per day. Was better till son hospitalized. Anxiety exacerbated. Sleeping okay at night. Using heat. Last muscle relaxant was years ago (flexeril). Still wearing a pad since sometimes gets watery stool. Still gets every day. 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 As directed. May fill today due to increase anxiety. pantoprazole DR (PROTONIX) 40 mg tablet Take 40 mg by mouth once daily. traZODone (DESYREL) 50 mg tablet Take 1-2 tablets by mouth daily at bedtime. doxycycline (VIBRA-TABS) 100 mg tablet Take 1 tablet by mouth twice daily. (Patient not taking: Reported on 11/30/2022) hyoscyamine SR (LEVBID) 0.375 mg 12 hr tablet Take 1 tablet by mouth every 12 hours as needed. dicyclomine (BENTYL) 20 mg tablet Take 1 tablet by mouth before meals and at bedtime. As directed gabapentin (NEURONTIN) 300 mg capsule Take 1-2 capsules by mouth daily at bedtime for 90 days. As directed ondansetron (ZOFRAN) 4 mg tablet Take 1-2 tablets by mouth every 8 hours as needed for nausea/vomiting. sucralfate (CARAFATE) 1 gram tablet Take 1 tablet by mouth before meals and at bedtime. (Patient not taking: Reported on 10/05/2022) loperamide (IMODIUM) 2 mg cap(s) Take 1 capsule by mouth four times daily as needed. (Patient not taking: Reported on 11/30/2022) Simethicone 125 mg cap Take 1 capsule by mouth four times daily. (For Gas) (Patient not taking: Reported on 10/27/2022) No current facility-administered medications for this visit. Review of Systems Objective BP 102/62 Pulse 92 Temp 36 ?C (96.8 ?F) Resp 18 Wt 51.7 kg (114 lb) SpO2 95% BMI 18.68 kg/m? Physical Exam Constitutional: Appearance: Normal appearance. HENT: Head: Normocephalic. Eyes: Conjunctiva/sclera: Conjunctivae normal. Neck: Comments: Noted tightness of neck muscles. Cardiovascular: Rate and Rhythm: Normal rate and regular rhythm. Heart sounds: Normal heart sounds. Pulmonary: Effort: Pulmonary effort is normal. Breath sounds: Normal breath sounds. Abdominal: General: Abdomen is flat. Bowel sounds are normal. There is no distension. Palpations: Abdomen is soft. Tenderness: There is no abdominal tenderness. There is no guarding. Musculoskeletal: Cervical back: Normal range of motion. Skin: General: Skin is warm and dry. Neurological: General: No focal deficit present. Mental Status: She is alert and oriented to person, place, and time. Psychiatric: Mood and Affect: Mood normal. Behavior: Behavior normal. Thought Content: Thought content normal. Judgment: Judgment normal. Assessment and Plan Encounter Diagnosis ICD-10-CM 1. Anxiety F41.9 clonazePAM (KLONOPIN) 0.5 mg tablet 2. Psychophysiological insomnia F51.04 clonazePAM (KLONOPIN) 0.5 mg tablet Doing okay on current med(s) 3. Diverticulitis K57.92 DISCONTINUED: hyoscyamine SR (LEVBID) 0.375 mg 12 hr tablet 4. Cervical neck pain with evidence of disc disease M50.90 tiZANidine (ZANAFLEX) 4 mg tablet 5. Neck muscle spasm M62.838 tiZANidine (ZANAFLEX) 4 mg tablet 6. Diarrhea, unspecified type R19.7 Above issues addressed with patient. Patient involved in shared decision making for management of medical issues. History and medications reviewed. Epic updated as needed Refills and/or prescriptions taken care of and meds adjusted as indicated after reviewed history, exam and labs. Health Maintenance reviewed. Updated record and/or ordered tests as recorded. Encouraged on efforts at healthy diet and regular exercise and adequate sleep (more content not included)... [facility] 11-30-2022 History of Present illness Narrative This note was created using goodideazs. Subjective Harry Tran is a 82 year old female. No chief complaint on file. SUBJECTIVE: Harry Tran is a 82 year old year old lady here today for follow up appointment for review of medical conditions. Waiting for PT and pain management appointments. Tight in neck muscles. Was better till son in hospital on vent. Told to be taking 3 Creon per day per GI. Taking 1 daily to 2 per day. Was better till son hospitalized. Anxiety exacerbated. Sleeping okay at night. Using heat. Last muscle relaxant was years ago (flexeril). Still wearing a pad since sometimes gets watery stool. Still gets every day. 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; was reactive depression after the of her mom, not active Diverticulosis of colon (without mention of hemorrhage) Esophageal reflux on wellchol Herpes simplex Hot flash, menopausal has been premarin since menopause Internal hemorrhoids without mention of complication Mitral valve disorders(424.0) MVP Nausea alone Other specified circulatory system disorders raynauds Psoriasis 07/03/2009 Unspecified [facility] Current Outpatient Medications Medication Sig clonazePAM (KLONOPIN) 0.5 mg tablet Take 1-2 tablets by mouth once daily as needed for up to 30 days. As directed. May fill today due to increase anxiety. pantoprazole DR (PROTONIX) 40 mg tablet Take 40 mg by mouth once daily. traZODone (DESYREL) 50 mg tablet Take 1-2 tablets by mouth daily at bedtime. doxycycline (VIBRA-TABS) 100 mg tablet Take 1 tablet by mouth twice daily. (Patient not taking: Reported on 11/30/2022) hyoscyamine SR (LEVBID) 0.375 mg 12 hr tablet Take 1 tablet by mouth every 12 hours as needed. dicyclomine (BENTYL) 20 mg tablet Take 1 tablet by mouth before meals and at bedtime. As directed gabapentin (NEURONTIN) 300 mg capsule Take 1-2 capsules by mouth daily at bedtime for 90 days. As directed ondansetron (ZOFRAN) 4 mg tablet Take 1-2 tablets by mouth every 8 hours as needed for nausea/vomiting. sucralfate (CARAFATE) 1 gram tablet Take 1 tablet by mouth before meals and at bedtime. (Patient not taking: Reported on 10/05/2022) loperamide (IMODIUM) 2 mg cap(s) Take 1 capsule by mouth four times daily as needed. (Patient not taking: Reported on 11/30/2022) Simethicone 125 mg cap Take 1 capsule by mouth four times daily. (For Gas) (Patient not taking: Reported on 10/27/2022) No current facility-administered medications for this visit. Review of Systems Objective BP 102/62 Pulse 92 Temp 36 C (96.8 F) Resp 18 Wt 51.7 kg (114 lb) SpO2 95% BMI 18.68 kg/m Physical Exam Constitutional: Appearance: Normal appearance. HENT: Head: Normocephalic. Eyes: Conjunctiva/sclera: Conjunctivae normal. Neck: Comments: Noted tightness of neck muscles. Cardiovascular: Rate and Rhythm: Normal rate and regular rhythm. Heart sounds: Normal heart sounds. Pulmonary: Effort: Pulmonary effort is normal. Breath sounds: Normal breath sounds. Abdominal: General: Abdomen is flat. Bowel sounds are normal. There is no distension. Palpations: Abdomen is soft. Tenderness: There is no abdominal tenderness. There is no guarding. Musculoskeletal: Cervical back: Normal range of motion. Skin: General: Skin is warm and dry. Neurological: General: No focal deficit present. Mental Status: She is alert and oriented to person, place, and time. Psychiatric: Mood and Affect: Mood normal. Behavior: Behavior normal. Thought Content: Thought content normal. Judgment: Judgment normal. Assessment and Plan Encounter Diagnosis ICD-10-CM 1. Anxiety F41.9 clonazePAM (KLONOPIN) 0.5 mg tablet 2. Psychophysiological insomnia F51.04 clonazePAM (KLONOPIN) 0.5 mg tablet Doing okay on current med(s) 3. Diverticulitis K57.92 DISCONTINUED: hyoscyamine SR (LEVBID) 0.375 mg 12 hr tablet 4. Cervical neck pain with evidence of disc disease M50.90 tiZANidine (ZANAFLEX) 4 mg tablet 5. Neck muscle spasm M62.838 tiZANidine (ZANAFLEX) 4 mg tablet 6. Diarrhea, unspecified type R19.7 Above issues addressed with patient. Patient involved in shared decision making for management of medical issues. History and medications reviewed. Epic updated as needed Refills and/or prescriptions taken care of and meds adjusted as indicated after reviewed history, exam and labs. Health Maintenance reviewed. Updated record and/or ordered tests as recorded. Encouraged on efforts at healthy diet and regular exercise and adequate sleep. Continue control of anxiety with clonazepam--needing to take due to exacerbation of anxiety since son hospitalized and not able to see him. No signs of diversion or abuse of medication(s); no adverse effects. Continue present management. Follow up with GI as needed. Waiting to see PT and pain management. Further evaluation and treatment as indicated. Jannet Mitchell MD documented in this encounter [facility] 11-25-2022 Miscellaneous Notes Patient updated. Myriam Burns RN VM left for pt to call PCP office for message below. Myriam Burns RN Filed orders for PT and pain management with Dr. Azevedo Pt was given results. Pt wishes to get started with PT & will schedule with Dr Azevedo. Please order. Milena Faye LPN VM left for pt to call PCP office and ask for a nurse for provider's message below. Myriam Burns RN Result note: As suspected based on history, has moderate to severe DDD in her neck. Narrowing where the nerve roots exit and several levels on the left and the right. Severe disc space narrowing at C5-6. This could cause her symptoms. See if prefers to see PT now and also schedule with [facility]Pain management Dr. Azevedo since may take a while to get in with him. Patient asking if Dr. Mitchell would advise her on recent Cervical Xray result from 11/15? Also asking if provider would place a referral for her to see someone regarding her neck and the pinched nerve ? Please advise patient. Thank you. documented in this encounter [facility] 11-15-2022 Note HNO ID: [id number] Author: RT Babak(R) Service: Radiology Author Type: Technologist Type: Progress Notes Filed: 11/15/2022 6:38 PM Note Text: Radiology Service Progress Note PATIENT NAME: Harry Tran DATE OF SERVICE: November 15, 2022 TIME: 6:22 PM PATIENT IDENTITY VERIFICATION COMPLETED USING TWO (2) IDENTIFIERS: Name and Date of confirmed by patient verbally. FALL SCREENING: Has the patient had 2 falls in the last year or 1 fall with injury or currently using an Ambulatory Assistive Device (Walker, Cane, Wheelchair, Crutches, etc.)? No PATIENT GENDER DATA: Female. status: : No status: NO. PATIENT RELEVANT IMPLANT DATA REVIEWED: Yes RADIOLOGY DEPARTMENT: General X-ray: Exam(s) Completed: Spine X-Ray(s): Cervical AP / LAT / OBL PERIPHERAL IV DATA: Not applicable SIGNED BY: RT Babak(R) November 15, 2022 6:22 PM [facility] 11-15-2022 Note HNO ID: [id number] Author: Jannet Mitchell MD Service: ? Author Type: Physician Type: Progress Notes Filed: 11/20/2022 3:43 PM Note Text: This note was created using [employer]. Subjective Harry Tran is a 82 year old female. Patient presents with: ED Follow-up SUBJECTIVE: Harry Tran is a 82 year old year old lady here today for ER follow up appointment for review of medical conditions. Numbness and weakness left face and arm. Reviewed MRI and labs Noted muscle spasms and tenderness left back and neck; no facial asymmetry. Speech normal. Decreased sensation left arm and face but can feel light touch. Strength normal. Reviewed that had similar symptoms 2008. MRI cervical spine not done. Numbness left face and arm. Numbness in face 2015--resolved. Needed refill clonazepam since they will not fill 3 day earlier. 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 pantoprazole DR (PROTONIX) 40 mg tablet Take 40 mg by mouth once daily. clonazePAM (KLONOPIN) 0.5 mg tablet Take 1-2 tablets by mouth once daily as needed for up to 90 days. As directed dicyclomine (BENTYL) 20 mg tablet Take 1 tablet by mouth before meals and at bedtime. As directed gabapentin (NEURONTIN) 300 mg capsule Take 1-2 capsules by mouth daily at bedtime for 90 days. As directed ondansetron (ZOFRAN) 4 mg tablet Take 1-2 tablets by mouth every 8 hours as needed for nausea/vomiting. traZODone (DESYREL) 50 mg tablet Take 1-2 tablets by mouth daily at bedtime. loperamide (IMODIUM) 2 mg cap(s) Take 1 capsule by mouth four times daily as needed. doxycycline (VIBRA-TABS) 100 mg tablet Take 1 tablet by mouth twice daily. sucralfate (CARAFATE) 1 gram tablet Take 1 tablet by mouth before meals and at bedtime. (Patient not taking: No sig reported) Simethicone 125 mg cap Take 1 capsule by mouth four times daily. (For Gas) (Patient not taking: No sig reported) No current facility-administered medications for this visit. Review of Systems Objective BP 120/80 Pulse 84 Temp 37.2 ?C (98.9 ?F) Resp 18 Wt 51.7 kg (114 lb) SpO2 94% BMI 18.68 kg/m? Physical Exam Constitutional: Appearance: Normal appearance. HENT: Head: Normocephalic. Eyes: Conjunctiva/sclera: Conjunctivae normal. Neck: Comments: Some pain with turning head. Cardiovascular: Rate and Rhythm: Normal rate and regular rhythm. Heart sounds: Normal heart sounds. Pulmonary: Effort: Pulmonary effort is normal. Breath sounds: Normal breath sounds. Musculoskeletal: Cervical back: Tenderness present. Pain with movement and muscular tenderness (Left SCM muscle and left paravertebral muscles on left.) present. Decreased range of motion. Skin: General: Skin is warm and dry. Neurological: General: No focal deficit present. Mental Status: She is alert and oriented to person, place, and time. Motor: No weakness. Gait: Gait is intact. Psychiatric: Mood and Affect: Mood normal. Behavior: Behavior normal. Thought Content: Thought content normal. Judgment: Judgment normal. Assessment and Plan Encounter Diagnosis ICD-10-CM 1. Cervical neck pain with evidence of disc disease M50.90 XR CERV OTHER 4V AP/LAT/OBL 2. Numbness of face R20.0 XR CERV OTHER 4V AP/LAT/OBL 3. Arm numbness left R20.0 XR CERV OTHER 4V AP/LAT/OBL 4. Anxiety F41.9 clonazePAM (KLONOPIN) 0.5 mg tablet 5. Psychophysiological insomnia F51.04 clonazePAM (KLONOPIN) 0.5 mg tablet Above issues addressed with patient. Patient involved in shared decision making for management of medical issues. History and medications reviewed. Epic updated as needed Refills and/or prescriptions taken care of and meds adjusted as indicated after reviewed history, exam and labs. Health Maintenance reviewed. Updated record and/or ordered tests as recorded. Encouraged on efforts at healthy diet and regular exercise and adequate sleep. History and symptoms consistent with DDD with radiculopathy causing symptoms on the left side neck and arm. Noted had episodes in the past. Declines MRI. Recommend PT, pain management, or spine center as indicated. Further evaluation and tr (more content not included)... [facility] 11-15-2022 History of Present illness Narrative This note was created using [employer]. Subjective Harry Tran is a 82 year old female. Patient presents with: ED Follow-up SUBJECTIVE: Harry Tran is a 82 year old year old lady here today for ER follow up appointment for review of medical conditions. Numbness and weakness left face and arm. Reviewed MRI and labs Noted muscle spasms and tenderness left back and neck; no facial asymmetry. Speech normal. Decreased sensation left arm and face but can feel light touch. Strength normal. Reviewed that had similar symptoms 2008. MRI cervical spine not done. Numbness left face and arm. Numbness in face 2016--resolved. Needed refill clonazepam since they will not fill 3 day earlier. 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 pantoprazole DR (PROTONIX) 40 mg tablet Take 40 mg by mouth once daily. clonazePAM (KLONOPIN) 0.5 mg tablet Take 1-2 tablets by mouth once daily as needed for up to 90 days. As directed dicyclomine (BENTYL) 20 mg tablet Take 1 tablet by mouth before meals and at bedtime. As directed gabapentin (NEURONTIN) 300 mg capsule Take 1-2 capsules by mouth daily at bedtime for 90 days. As directed ondansetron (ZOFRAN) 4 mg tablet Take 1-2 tablets by mouth every 8 hours as needed for nausea/vomiting. traZODone (DESYREL) 50 mg tablet Take 1-2 tablets by mouth daily at bedtime. loperamide (IMODIUM) 2 mg cap(s) Take 1 capsule by mouth four times daily as needed. doxycycline (VIBRA-TABS) 100 mg tablet Take 1 tablet by mouth twice daily. sucralfate (CARAFATE) 1 gram tablet Take 1 tablet by mouth before meals and at bedtime. (Patient not taking: No sig reported) Simethicone 125 mg cap Take 1 capsule by mouth four times daily. (For Gas) (Patient not taking: No sig reported) No current facility-administered medications for this visit. Review of Systems Objective BP 120/80 Pulse 84 Temp 37.2 C (98.9 F) Resp 18 Wt 51.7 kg (114 lb) SpO2 94% BMI 18.68 kg/m Physical Exam Constitutional: Appearance: Normal appearance. HENT: Head: Normocephalic. Eyes: Conjunctiva/sclera: Conjunctivae normal. Neck: Comments: Some pain with turning head. Cardiovascular: Rate and Rhythm: Normal rate and regular rhythm. Heart sounds: Normal heart sounds. Pulmonary: Effort: Pulmonary effort is normal. Breath sounds: Normal breath sounds. Musculoskeletal: Cervical back: Tenderness present. Pain with movement and muscular tenderness (Left SCM muscle and left paravertebral muscles on left.) present. Decreased range of motion. Skin: General: Skin is warm and dry. Neurological: General: No focal deficit present. Mental Status: She is alert and oriented to person, place, and time. Motor: No weakness. Gait: Gait is intact. Psychiatric: Mood and Affect: Mood normal. Behavior: Behavior normal. Thought Content: Thought content normal. Judgment: Judgment normal. Assessment and Plan Encounter Diagnosis ICD-10-CM 1. Cervical neck pain with evidence of disc disease M50.90 XR CERV OTHER 4V AP/LAT/OBL 2. Numbness of face R20.0 XR CERV OTHER 4V AP/LAT/OBL 3. Arm numbness left R20.0 XR CERV OTHER 4V AP/LAT/OBL 4. Anxiety F41.9 clonazePAM (KLONOPIN) 0.5 mg tablet 5. Psychophysiological insomnia F51.04 clonazePAM (KLONOPIN) 0.5 mg tablet Above issues addressed with patient. Patient involved in shared decision making for management of medical issues. History and medications reviewed. Epic updated as needed Refills and/or prescriptions taken care of and meds adjusted as indicated after reviewed history, exam and labs. Health Maintenance reviewed. Updated record and/or ordered tests as recorded. Encouraged on efforts at healthy diet and regular exercise and adequate sleep. History and symptoms consistent with DDD with radiculopathy causing symptoms on the left side neck and arm. Noted had episodes in the past. Declines MRI. Recommend PT, pain management, or spine center as indicated. Further evaluation and treatment as indicated. Jannet Mitchell MD documented in this encounter [facility] 11-12-2022 Miscellaneous Notes Noted, agree, monitor for ER/admission Patient call in for Left side numbness to face and arms. Patient states that this has been going on for 3 days. Patient has had chest pain along with this. Nurse Triage assessment completed with protocol recommending for disposition of Go to ED now. Care advice reviewed with patient, patient stated understanding. Reason for Disposition [1] Numbness (i.e., loss of sensation) of the face, arm / hand, or leg / foot on one side of the body AND [2] sudden onset AND [3] brief (now gone) Answer Assessment - Initial Assessment Questions 1. SYMPTOM: Numbness to left arm and face 2. ONSET: Started 3 days ago 3. LAST NORMAL: Last normal 3 days ago 4. PATTERN Constant; Sometimes it lessens and then it gets really bad. 5. CARDIAC SYMPTOMS: Chest Pain (last night) 6. NEUROLOGIC SYMPTOMS: Denies other symptoms 7. OTHER SYMPTOMS: Just Numbness in face and arms Protocols used: Neurologic [id number] documented in this encounter [facility] 11-06-2022 Miscellaneous Notes Detailed VM left on pt's identified voicemail of information below. Edith Chester LPN The following approved medication requests have been transmitted electronically. Requested Prescriptions Signed Prescriptions Disp Refills codeine-guaiFENesin (ROBITUSSIN AC) 10-100 mg/5 mL syrup 240 mL 0 Sig: Take 5-10 mL by mouth four times daily as needed for cough for up to 7 days. May cause drowsiness. Authorizing Provider: JANNET MITCHELL MD Follow up if cough not getting better. Noted last filled beginning of September. Pt states she has a cold, reports congestion & feels like she has to cough but can't, states sx have been since she was last seen in the office 10/27/22. Pt states pcp has given her codeine-guaifenesin before when she had these sx & is asking for a refill. Pt uses [facility]. Please advise. Milena Faye LPN documented in this encounter [facility] 10-27-2022 Note HNO ID: [id number] Author: Jannet Mitchell MD Service: ? Author Type: Physician Type: Progress Notes Filed: 11/24/2022 12:44 AM Note Text: This note was created using goodideazs. Subjective Harry Tran is a 82 year old female. Patient presents with: Established Patient: Follow up SUBJECTIVE: Harry Tran is a 82 year old year old lady here today for follow up appointment for review of medical conditions. Noted that has had diarrhea more lately. Has been having going back and forth between diarrhea and constipation. Has had hard stools at times. Dr. Quesada. Has not taken anything for bowels the past 3 days. Last took Imodium several day ago because of diarrhea. Today had hard stool. At least 2 days since last stool. tripped on a toy and ripped open skin on right marmolejo. Hurts in SI joint on right Shoulder also hurts. Requests hydrocodone. At home weight around 110 pounds. Taking 3 Ensure per day. 150 calories Wondered about seeing Melodie Luna for help with nutrition and weight gain. Has Creon but first time taking upset stomach. 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 hyoscyamine SR (LEVBID) 0.375 mg 12 hr tablet Take 1 tablet by mouth every 12 hours as needed. pantoprazole DR (PROTONIX) 40 mg tablet Take 40 mg by mouth once daily. clonazePAM (KLONOPIN) 0.5 mg tablet Take 1-2 tablets by mouth once daily as needed for up to 90 days. As directed dicyclomine (BENTYL) 20 mg tablet Take 1 tablet by mouth before meals and at bedtime. As directed gabapentin (NEURONTIN) 300 mg capsule Take 1-2 capsules by mouth daily at bedtime for 90 days. As directed ondansetron (ZOFRAN) 4 mg tablet Take 1-2 tablets by mouth every 8 hours as needed for nausea/vomiting. traZODone (DESYREL) 50 mg tablet Take 1-2 tablets by mouth daily at bedtime. loperamide (IMODIUM) 2 mg cap(s) Take 1 capsule by mouth four times daily as needed. lubiprostone (AMITIZA) 8 mcg capsule Take 1 capsule by mouth twice daily with meals. (Patient not taking: Reported on 10/27/2022) sucralfate (CARAFATE) 1 gram tablet Take 1 tablet by mouth before meals and at bedtime. (Patient not taking: No sig reported) Simethicone 125 mg cap Take 1 capsule by mouth four times daily. (For Gas) (Patient not taking: Reported on 10/27/2022) No current facility-administered medications for this visit. Review of Systems Objective BP 112/60 Pulse 90 Temp 36.6 ?C (97.9 ?F) Resp 18 Wt 51.3 kg (113 lb) SpO2 95% BMI 18.52 kg/m? Physical Exam Constitutional: Appearance: Normal appearance. HENT: Head: Normocephalic. Eyes: Conjunctiva/sclera: Conjunctivae normal. Cardiovascular: Rate and Rhythm: Normal rate and regular rhythm. Heart sounds: Normal heart sounds. Pulmonary: Effort: Pulmonary effort is normal. Breath sounds: Normal breath sounds. Skin: General: Skin is warm and dry. Neurological: General: No focal deficit present. Mental Status: She is alert and oriented to person, place, and time. Psychiatric: Attention and Perception: Perception normal. Mood and Affect: Affect normal. Mood is anxious. Speech: Speech normal. Behavior: Behavior normal. Thought Content: Thought content normal. Cognition and Memory: Cognition normal. Judgment: Judgment normal. Assessment and Plan Encounter Diagnosis ICD-10-CM 1. Diverticulitis K57.92 HYDROcodone-acetaminophen (NORCO) 5-325 mg per tablet Above issues addressed with patient. Patient involved in shared decision making for management of medical issues. History and medications reviewed. Epic updated as needed Refills and/or prescriptions taken care of and meds adjusted as indicated after reviewed history, exam and labs. Health Maintenance reviewed. Updated record and/or ordered tests as recorded. Encouraged on efforts at healthy diet and regular exercise and adequate sleep. Effective control of acute pain with hydrocodone as needed. At this time benefits outweigh risks. Continue to monitor for adverse effects and indications for decreasing dose or tapering off. Will follow up with GI. For acute pain s/p fall, can refer to PT or (more content not included)... [facility] 10-27-2022 Instructions Jannet Mitchell MD - 10/27/2022 3:04 PM EDT Consider getting Oatbran, Applesauce, Prune juice--mix equal parts and take 1 to 3 tablespoons daily to help prevent constipation. Try 1/3 cup each and see if that lasts a few days to a week--mix this up and let sit in fridge overnight before eating. If above not adequate to prevent constipation, can add Metamucil and Miralax daily. May need to adjust dose--consider 1 tablespoon each daily then adjust from there. GasX/simethicone to decrease gas pressure. documented in this encounter [facility] 10-27-2022 History of Present illness Narrative This note was created using [employer]. Subjective Harry Tran is a 82 year old female. Patient presents with: Established Patient: Follow up SUBJECTIVE: Harry Tran is a 82 year old year old lady here today for follow up appointment for review of medical conditions. Noted that has had diarrhea more lately. Has been having going back and forth between diarrhea and constipation. Has had hard stools at times. Dr. Quesada. Has not taken anything for bowels the past 3 days. Last took Imodium several day ago because of diarrhea. Today had hard stool. At least 2 days since last stool. tripped on a toy and ripped open skin on right marmolejo. Hurts in SI joint on right Shoulder also hurts. Requests hydrocodone. At home weight around 110 pounds. Taking 3 Ensure per day. 150 calories Wondered about seeing Melodie Luna for help with nutrition and weight gain. Has Creon but first time taking upset stomach. 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 hyoscyamine SR (LEVBID) 0.375 mg 12 hr tablet Take 1 tablet by mouth every 12 hours as needed. pantoprazole DR (PROTONIX) 40 mg tablet Take 40 mg by mouth once daily. clonazePAM (KLONOPIN) 0.5 mg tablet Take 1-2 tablets by mouth once daily as needed for up to 90 days. As directed dicyclomine (BENTYL) 20 mg tablet Take 1 tablet by mouth before meals and at bedtime. As directed gabapentin (NEURONTIN) 300 mg capsule Take 1-2 capsules by mouth daily at bedtime for 90 days. As directed ondansetron (ZOFRAN) 4 mg tablet Take 1-2 tablets by mouth every 8 hours as needed for nausea/vomiting. traZODone (DESYREL) 50 mg tablet Take 1-2 tablets by mouth daily at bedtime. loperamide (IMODIUM) 2 mg cap(s) Take 1 capsule by mouth four times daily as needed. lubiprostone (AMITIZA) 8 mcg capsule Take 1 capsule by mouth twice daily with meals. (Patient not taking: Reported on 10/27/2022) sucralfate (CARAFATE) 1 gram tablet Take 1 tablet by mouth before meals and at bedtime. (Patient not taking: No sig reported) Simethicone 125 mg cap Take 1 capsule by mouth four times daily. (For Gas) (Patient not taking: Reported on 10/27/2022) No current facility-administered medications for this visit. Review of Systems Objective BP 112/60 Pulse 90 Temp 36.6 C (97.9 F) Resp 18 Wt 51.3 kg (113 lb) SpO2 95% BMI 18.52 kg/m Physical Exam Constitutional: Appearance: Normal appearance. HENT: Head: Normocephalic. Eyes: Conjunctiva/sclera: Conjunctivae normal. Cardiovascular: Rate and Rhythm: Normal rate and regular rhythm. Heart sounds: Normal heart sounds. Pulmonary: Effort: Pulmonary effort is normal. Breath sounds: Normal breath sounds. Skin: General: Skin is warm and dry. Neurological: General: No focal deficit present. Mental Status: She is alert and oriented to person, place, and time. Psychiatric: Attention and Perception: Perception normal. Mood and Affect: Affect normal. Mood is anxious. Speech: Speech normal. Behavior: Behavior normal. Thought Content: Thought content normal. Cognition and Memory: Cognition normal. Judgment: Judgment normal. Assessment and Plan Encounter Diagnosis ICD-10-CM 1. Diverticulitis K57.92 HYDROcodone-acetaminophen (NORCO) 5-325 mg per tablet Above issues addressed with patient. Patient involved in shared decision making for management of medical issues. History and medications reviewed. Epic updated as needed Refills and/or prescriptions taken care of and meds adjusted as indicated after reviewed history, exam and labs. Health Maintenance reviewed. Updated record and/or ordered tests as recorded. Encouraged on efforts at healthy diet and regular exercise and adequate sleep. Effective control of acute pain with hydrocodone as needed. At this time benefits outweigh risks. Continue to monitor for adverse effects and indications for decreasing dose or tapering off. Will follow up with GI. For acute pain s/p fall, can refer to PT or ortho as indicated. No signs of diversion or abuse of medication(s); no adverse effects. Continue present management. I spent a total of 25 minutes on the date of the service which included [id number] patient care, completing clinical documentation, obtaining and/or reviewing separately obtained history, performing a medically appropriate examination, and counseling and educating the patient/family/caregiver. Jannet Mitchell MD documented in this encounter [facility] 10-25-2022 Miscellaneous Notes There's a 1:40 on Tuesday right now Patient calling has to cancel appt for today has emergency with her son. Patient is asking if PCP is able to work her in Tuesday or Tuesday this week for appt? No openings in PCP schedule. Patient said she fell and needs to see PCP, said she can not keep today appt. Please advise documented in this encounter [facility] 10-19-2022 Miscellaneous Notes Patient calls and notified of results and providers instructions. Patient verbalizes understanding. Rescheduled follow up appointment per appointment notes. Anna Kirk RN Left message to call & speak to nurse re: results. Echo Garnica LPN ----- Message from Basilia Kellogg APRN.FLOOR CLEANER sent at 10/15/2022 3:42 PM EDT ----- XR abdomen: Surgical clips are noted right upper quadrant pelvis. No active disease noted. No acute findings. documented in this encounter [facility] 10-05-2022 Note HNO ID: [id number] Author: RT Lara(R) Service: Nuclear Medicine Author Type: Technologist Type: Progress Notes Filed: 10/05/2022 2:29 PM Note Text: Radiology Service Progress Note PATIENT NAME: Harry Tran DATE OF SERVICE: October 05, 2022 TIME: 2:17 PM PATIENT IDENTITY VERIFICATION COMPLETED USING TWO (2) IDENTIFIERS: Name and Date of confirmed by patient verbally. FALL SCREENING: Has the patient had 2 falls in the last year or 1 fall with injury or currently using an Ambulatory Assistive Device (Walker, Cane, Wheelchair, Crutches, etc.)? No PATIENT GENDER DATA: Female. status: : No status: NO. PATIENT RELEVANT IMPLANT DATA REVIEWED: Not Applicable RADIOLOGY DEPARTMENT: General X-ray: Exam(s) Completed: Abdomen X-Ray: Abdomen PERIPHERAL IV DATA: Not applicable SIGNED BY: RT Lara(R) October 05, 2022 2:17 PM [facility] 10-05-2022 Note HNO ID: [id number] Author: Jannet Mitchell MD Service: ? Author Type: Physician Type: Progress Notes Filed: 11/07/2022 10:40 PM Note Text: This note was created using [employer]. Subjective Harry Tran is a 82 year old female. Patient presents with: GI issues SUBJECTIVE: Harry Tran is a 82 year old year old lady here today for follow up appointment for review of medical conditions. Dr. Quesada had nurse call her to tell her to start Creon for pancreatic insufficiency. Brought bottles of Creon, pantoprazole and Flagyl. Finished metronidazole. Still having runny stools. Took Imodium to get here today. Not sure if taking Amitiza. Also not sure about dicyclomine. 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; was reactive depression after the of her mom, not active Diverticulosis of colon (without mention of hemorrhage) Esophageal reflux on wellchol Herpes simplex Hot flash, menopausal has been premarin since menopause Internal hemorrhoids without mention of complication Mitral valve disorders(424.0) MVP Nausea alone Other specified circulatory system disorders raynauds Psoriasis 07/03/2009 Unspecified gastritis and gastroduodenitis on [facility] Current Outpatient Medications Medication Sig doxycycline (VIBRA-TABS) 100 mg tablet Take 1 tablet by mouth twice daily. hyoscyamine SR (LEVBID) 0.375 mg 12 hr tablet Take 1 tablet by mouth every 12 hours as needed. pantoprazole DR (PROTONIX) 40 mg tablet Take 40 mg by mouth once daily. clonazePAM (KLONOPIN) 0.5 mg tablet Take 1-2 tablets by mouth once daily as needed for up to 90 days. As directed dicyclomine (BENTYL) 20 mg tablet Take 1 tablet by mouth before meals and at bedtime. As directed gabapentin (NEURONTIN) 300 mg capsule Take 1-2 capsules by mouth daily at bedtime for 90 days. As directed ondansetron (ZOFRAN) 4 mg tablet Take 1-2 tablets by mouth every 8 hours as needed for nausea/vomiting. traZODone (DESYREL) 50 mg tablet Take 1-2 tablets by mouth daily at bedtime. loperamide (IMODIUM) 2 mg cap(s) Take 1 capsule by mouth four times daily as needed. lubiprostone (AMITIZA) 8 mcg capsule Take 1 capsule by mouth twice daily with meals. sucralfate (CARAFATE) 1 gram tablet Take 1 tablet by mouth before meals and at bedtime. (Patient not taking: Reported on 10/05/2022) Simethicone 125 mg cap Take 1 capsule by mouth four times daily. (For Gas) (Patient taking differently: Take 1 capsule by mouth four times daily as needed. (For Gas)) No current facility-administered medications for this visit. Review of Systems Objective BP 118/62 Pulse 89 Temp (!) 35.9 ?C (96.7 ?F) Resp 18 SpO2 96% Physical Exam Constitutional: General: She is not in acute distress. Appearance: Normal appearance. She is ill-appearing. HENT: Head: Normocephalic. Eyes: Conjunctiva/sclera: Conjunctivae normal. Cardiovascular: Rate and Rhythm: Normal rate and regular rhythm. Heart sounds: Normal heart sounds. Pulmonary: Effort: Pulmonary effort is normal. Breath sounds: Normal breath sounds. Abdominal: General: Abdomen is flat. Bowel sounds are normal. There is no distension. Palpations: Abdomen is soft. There is no mass. Tenderness: There is abdominal tenderness. There is no guarding or rebound. Comments: Bowels active (but not tinkling as with obstruction) Skin: General: Skin is warm and dry. Neurological: General: No focal deficit present. Mental Status: She is alert and oriented to person, place, and time. Psychiatric: Mood and Affect: Mood normal. Behavior: Behavior normal. Thought Content: Thought content normal. Judgment: Judgment normal. CT scan results from 09/30 reviewed. Also reviewed colonoscopy report. Assessment and Plan Encounter Diagnosis ICD-10-CM 1. Generalized abdominal pain R10.84 XR ABDOMEN 1V SUPINE 2. Irritable bowel syndrome with both constipation and diarrhea K58.2 XR ABDOMEN 1V SUPINE ?run off diarrhea due to constipation 3. Gastroesophageal reflux disease, unspecified whether esophagitis present K21.9 4. Diverticulosis K57.90 Above issues addressed with patient. Patient involved in shared decision making for management of medical issues. History and medications reviewed. Epic updated as needed Refills and/or prescriptions taken care of and meds adjusted as indicated after reviewed history, exam and labs. Health Maintenance reviewed. Updated record and/or ordered tests as recorded. Encouraged on efforts at healthy diet and regular exercise and adequate sleep. Discussed medication management to control bowel issues and follow up with GI. Further evaluation and treatment as indicated. Main issue has been constipation and concern that there may be (more content not included)... [facility] 10-05-2022 Instructions Jannet Mitchell MD - 10/05/2022 1:40 PM EDT Creon is enzymes for meals to help with digestion. Okay to put on hold if not eating well. Miralax to prevent constipation and clean out bowels. Lactulose is also to treat and prevent constipation. Do not need to get this inf Miralax adequate. Bentyl (dicyclomine) to help prevent spasm in colon. LevBid (hyoscyamine) is also for preventing spasm in colon. Amitiza (lubiprostone) to treat constipation. Might need to add Metamucil at some point to bulk up the stools. Stay on Pantoprazole to treat gastritis and esophagitis issues. documented in this encounter [facility] 10-05-2022 History of Present illness Narrative This note was created using goodideazs. Subjective Harry Tran is a 82 year old female. Patient presents with: GI issues SUBJECTIVE: Harry Tran is a 82 year old year old lady here today for follow up appointment for review of medical conditions. Dr. Quesada had nurse call her to tell her to start Creon for pancreatic insufficiency. Brought bottles of Creon, pantoprazole and Flagyl. Finished metronidazole. Still having runny stools. Took Imodium to get here today. Not sure if taking Amitiza. Also not sure about dicyclomine. 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 hyoscyamine SR (LEVBID) 0.375 mg 12 hr tablet Take 1 tablet by mouth every 12 hours as needed. pantoprazole DR (PROTONIX) 40 mg tablet Take 40 mg by mouth once daily. clonazePAM (KLONOPIN) 0.5 mg tablet Take 1-2 tablets by mouth once daily as needed for up to 90 days. As directed dicyclomine (BENTYL) 20 mg tablet Take 1 tablet by mouth before meals and at bedtime. As directed gabapentin (NEURONTIN) 300 mg capsule Take 1-2 capsules by mouth daily at bedtime for 90 days. As directed ondansetron (ZOFRAN) 4 mg tablet Take 1-2 tablets by mouth every 8 hours as needed for nausea/vomiting. traZODone (DESYREL) 50 mg tablet Take 1-2 tablets by mouth daily at bedtime. loperamide (IMODIUM) 2 mg cap(s) Take 1 capsule by mouth four times daily as needed. lubiprostone (AMITIZA) 8 mcg capsule Take 1 capsule by mouth twice daily with meals. sucralfate (CARAFATE) 1 gram tablet Take 1 tablet by mouth before meals and at bedtime. (Patient not taking: Reported on 10/05/2022) Simethicone 125 mg cap Take 1 capsule by mouth four times daily. (For Gas) (Patient taking differently: Take 1 capsule by mouth four times daily as needed. (For Gas)) No current facility-administered medications for this visit. Review of Systems Objective BP 118/62 Pulse 89 Temp (!) 35.9 C (96.7 F) Resp 18 SpO2 96% Physical Exam Constitutional: General: She is not in acute distress. Appearance: Normal appearance. She is ill-appearing. HENT: Head: Normocephalic. Eyes: Conjunctiva/sclera: Conjunctivae normal. Cardiovascular: Rate and Rhythm: Normal rate and regular rhythm. Heart sounds: Normal heart sounds. Pulmonary: Effort: Pulmonary effort is normal. Breath sounds: Normal breath sounds. Abdominal: General: Abdomen is flat. Bowel sounds are normal. There is no distension. Palpations: Abdomen is soft. There is no mass. Tenderness: There is abdominal tenderness. There is no guarding or rebound. Comments: Bowels active (but not tinkling as with obstruction) Skin: General: Skin is warm and dry. Neurological: General: No focal deficit present. Mental Status: She is alert and oriented to person, place, and time. Psychiatric: Mood and Affect: Mood normal. Behavior: Behavior normal. Thought Content: Thought content normal. Judgment: Judgment normal. CT scan results from 09/30 reviewed. Also reviewed colonoscopy report. Assessment and Plan Encounter Diagnosis ICD-10-CM 1. Generalized abdominal pain R10.84 XR ABDOMEN 1V SUPINE 2. Irritable bowel syndrome with both constipation and diarrhea K58.2 XR ABDOMEN 1V SUPINE ?run off diarrhea due to constipation 3. Gastroesophageal reflux disease, unspecified whether esophagitis present K21.9 4. Diverticulosis K57.90 Above issues addressed with patient. Patient involved in shared decision making for management of medical issues. History and medications reviewed. Epic updated as needed Refills and/or prescriptions taken care of and meds adjusted as indicated after reviewed history, exam and labs. Health Maintenance reviewed. Updated record and/or ordered tests as recorded. Encouraged on efforts at healthy diet and regular exercise and adequate sleep. Discussed medication management to control bowel issues and follow up with GI. Further evaluation and treatment as indicated. Main issue has been constipation and concern that there may be a narrowed area due to diverticulosis and history of diverticulitis. Also swinging back and forth between diarrhea and constipation possible due to taking Imodium to treat loose stools which may be from run off diarrhea due to constipation. Further evaluation and treatment as indicated. Noted patient's anxiety over ongoing GI symptoms. Also financial issues. Emotional support given. I spent a total of 43 minutes on the date of the service which included preparing to see the patient, [id number] patient care, completing clinical documentation, obtaining and/or reviewing separately obtained history, performing a medically appropriate examination, counseling and educating the patient/family/caregiver, and ordering medications, tests, or procedures. Jannet Mitchell MD documented in this encounter [facility] 09-25-2022 Note HNO ID: [id number] Author: Jannet Mitchell MD Service: ? Author Type: Physician Type: Progress Notes Filed: 09/25/2022 1:21 PM Note Text: This note was created using goodideazs. Subjective Harry Tran is a 82 year old female. Patient presents with: Follow Up Abdominal Pain: pain since colonoscopy x 4 weeks ago 08/25/22 SUBJECTIVE: Harry Tran is a 82 year old year old lady here today for follow up appointment for review of medical conditions. Gets swelling in abdomen and pain that she feels is worse since after had colonoscopy and EGD. Could not afford the Amitiza that was prescribed by Dr. Quesada. Nurse today found out is cheaper at [employer] through [employer] with coupon. Taking doxycycline--prescribed 09/20. Had stopped metronidazole since upset her stomach. Only took a few pills of metronidazole when was prescribed 08/25. Still with constipation since had colonoscopy. States that was told to call Dr. Quesada's office with update on her symptoms and for follow up, but had called and left 4 messages without reply. Wanted to know what to do about her GI symptoms not doing better. She is not sure if/when has follow up scheduled with him. Noted that was having hoarseness from coughing. Started a week ago at least. Had called a couple days ago to request antibiotic and cough med. Appointment made for today to address. 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 hyoscyamine SR (LEVBID) 0.375 mg 12 hr tablet Take 1 tablet by mouth every 12 hours as needed. lubiprostone (AMITIZA) 8 mcg capsule Take 1 capsule by mouth twice daily with meals. pantoprazole DR (PROTONIX) 40 mg tablet Take 40 mg by mouth once daily. clonazePAM (KLONOPIN) 0.5 mg tablet Take 1-2 tablets by mouth once daily as needed for up to 90 days. As directed dicyclomine (BENTYL) 20 mg tablet Take 1 tablet by mouth before meals and at bedtime. As directed gabapentin (NEURONTIN) 300 mg capsule Take 1-2 capsules by mouth daily at bedtime for 90 days. As directed ondansetron (ZOFRAN) 4 mg tablet Take 1-2 tablets by mouth every 8 hours as needed for nausea/vomiting. sucralfate (CARAFATE) 1 gram tablet Take 1 tablet by mouth before meals and at bedtime. traZODone (DESYREL) 50 mg tablet Take 1-2 tablets by mouth daily at bedtime. loperamide (IMODIUM) 2 mg cap(s) Take 1 capsule by mouth four times daily as needed. Simethicone 125 mg cap Take 1 capsule by mouth four times daily. (For Gas) (Patient taking differently: Take 1 capsule by mouth four times daily as needed. (For Gas)) No current facility-administered medications for this visit. Review of Systems Objective BP 120/50 (BP Site: Left Arm, BP Position: Sitting, BP Cuff Size: Regular Adult) Pulse 91 Temp 36.4 ?C (97.5 ?F) Resp 14 Ht 166.4 cm (5' 5.5 ) Wt 52.2 kg (115 lb) SpO2 97% BMI 18.85 kg/m? Last 5 Encounter Wt Readings: Date: Wt: 09/25/2022 52.2 kg (115 lb) 08/13/2022 52.2 kg (115 lb) 07/27/2022 52.2 kg (115 lb) 07/10/2022 52.2 kg (115 lb) 05/28/2022 51 kg (112 lb 6.4 oz) No waist measurement recorded Estimated body mass index is 18.85 kg/m? as calculated from the following: Height as of this encounter: 166.4 cm (5' 5.5 ). Weight as of this encounter: 52.2 kg (115 lb). Last 5 Encounter BP Readings: Date: BP: 09/25/2022 120/50 08/13/2022 116/58 07/27/2022 110/68 07/10/2022 108/70 05/28/2022 110/68 Physical Exam HENT: Head: Normocephalic. Eyes: Conjunctiva/sclera: Conjunctivae normal. Cardiovascular: Rate and Rhythm: Normal rate and regular rhythm. Heart sounds: Normal heart sounds. Pulmonary: Effort: Pulmonary effort is normal. Breath sounds: Normal breath sounds. Abdominal: General: Bowel sounds are normal. There is distension. Tenderness: There is abdominal tenderness. Skin: General: Skin is warm and dry. Neurological: General: No focal deficit present. Mental Status: She is alert and oriented to person, place, and time. Psychiatric: Attention and Perception: Attention and perception normal. Mood and Affect: Affect normal. Mood is anxious (due to ongoing GI symptoms). Speech: Speech normal. Behavior: Behavior norm (more content not included)... [facility] 09-25-2022 Instructions Jannet Mitchell MD - 09/25/2022 11:43 AM EDT Gas X (simethicone) for dissolving the gas in the GI tract. This is over the counter. May take 4 times daily (even if not eating; if eating, can take prior to eating). This helps decompress the bowels so less pain from gas and bloating. Make sure taking pantoprazole. Needed for reflux and gastritis. documented in this encounter [facility] 09-25-2022 History of Present illness Narrative This note was created using goodideazs. Subjective Harry Tran is a 82 year old female. Patient presents with: Follow Up Abdominal Pain: pain since colonoscopy x 4 weeks ago 08/25/22 SUBJECTIVE: Harry Tran is a 82 year old year old lady here today for follow up appointment for review of medical conditions. Gets swelling in abdomen and pain that she feels is worse since after had colonoscopy and EGD. Could not afford the Amitiza that was prescribed by Dr. Quesada. Nurse today found out is cheaper at [employer] through [employer] with coupon. Taking doxycycline--prescribed 09/20. Had stopped metronidazole since upset her stomach. Only took a few pills of metronidazole when was prescribed 08/25. Still with constipation since had colonoscopy. States that was told to call Dr. Quesada's office with update on her symptoms and for follow up, but had called and left 4 messages without reply. Wanted to know what to do about her GI symptoms not doing better. She is not sure if/when has follow up scheduled with him. Noted that was having hoarseness from coughing. Started a week ago at least. Had called a couple days ago to request antibiotic and cough med. Appointment made for today to address. 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 hyoscyamine SR (LEVBID) 0.375 mg 12 hr tablet Take 1 tablet by mouth every 12 hours as needed. lubiprostone (AMITIZA) 8 mcg capsule Take 1 capsule by mouth twice daily with meals. pantoprazole DR (PROTONIX) 40 mg tablet Take 40 mg by mouth once daily. clonazePAM (KLONOPIN) 0.5 mg tablet Take 1-2 tablets by mouth once daily as needed for up to 90 days. As directed dicyclomine (BENTYL) 20 mg tablet Take 1 tablet by mouth before meals and at bedtime. As directed gabapentin (NEURONTIN) 300 mg capsule Take 1-2 capsules by mouth daily at bedtime for 90 days. As directed ondansetron (ZOFRAN) 4 mg tablet Take 1-2 tablets by mouth every 8 hours as needed for nausea/vomiting. sucralfate (CARAFATE) 1 gram tablet Take 1 tablet by mouth before meals and at bedtime. traZODone (DESYREL) 50 mg tablet Take 1-2 tablets by mouth daily at bedtime. loperamide (IMODIUM) 2 mg cap(s) Take 1 capsule by mouth four times daily as needed. Simethicone 125 mg cap Take 1 capsule by mouth four times daily. (For Gas) (Patient taking differently: Take 1 capsule by mouth four times daily as needed. (For Gas)) No current facility-administered medications for this visit. Review of Systems Objective BP 120/50 (BP Site: Left Arm, BP Position: Sitting, BP Cuff Size: Regular Adult) Pulse 91 Temp 36.4 C (97.5 F) Resp 14 Ht 166.4 cm (5' 5.5 ) Wt 52.2 kg (115 lb) SpO2 97% BMI 18.85 kg/m Last 5 Encounter Wt Readings: Date: Wt: 09/25/2022 52.2 kg (115 lb) 08/13/2022 52.2 kg (115 lb) 07/27/2022 52.2 kg (115 lb) 07/10/2022 52.2 kg (115 lb) 05/28/2022 51 kg (112 lb 6.4 oz) No waist measurement recorded Estimated body mass index is 18.85 kg/m as calculated from the following: Height as of this encounter: 166.4 cm (5' 5.5 ). Weight as of this encounter: 52.2 kg (115 lb). Last 5 Encounter BP Readings: Date: BP: 09/25/2022 120/50 08/13/2022 116/58 07/27/2022 110/68 07/10/2022 108/70 05/28/2022 110/68 Physical Exam HENT: Head: Normocephalic. Eyes: Conjunctiva/sclera: Conjunctivae normal. Cardiovascular: Rate and Rhythm: Normal rate and regular rhythm. Heart sounds: Normal heart sounds. Pulmonary: Effort: Pulmonary effort is normal. Breath sounds: Normal breath sounds. Abdominal: General: Bowel sounds are normal. There is distension. Tenderness: There is abdominal tenderness. Skin: General: Skin is warm and dry. Neurological: General: No focal deficit present. Mental Status: She is alert and oriented to person, place, and time. Psychiatric: Attention and Perception: Attention and perception normal. Mood and Affect: Affect normal. Mood is anxious (due to ongoing GI symptoms). Speech: Speech normal. Behavior: Behavior normal. Thought Content: Thought content normal. Judgment: Judgment normal. Reviewed copy of pictures from colonoscopy she had been given. Assessment and Plan Encounter Diagnosis ICD-10-CM 1. Diverticulitis K57.92 doxycycline (VIBRA-TABS) 100 mg tablet hyoscyamine SR (LEVBID) 0.375 mg 12 hr tablet metroNIDAZOLE (FLAGYL) 500 mg tablet ciprofloxacin HCl (CIPRO) 500 mg tablet HYDROcodone-acetaminophen (NORCO) 5-325 mg per tablet 2. Bronchiectasis with acute exacerbation (HCC) J47.1 ciprofloxacin HCl (CIPRO) 500 mg tablet codeine-guaiFENesin (ROBITUSSIN AC) 10-100 mg/5 mL syrup 3. Constipation, unspecified constipation type K59.00 lubiprostone (AMITIZA) 8 mcg capsule 4. Cough R05.9 ciprofloxacin HCl (CIPRO) 500 mg tablet codeine-guaiFENesin (ROBITUSSIN AC) 10-100 mg/5 mL syrup Above issues addressed with patient. Patient involved in shared decision making for management of medical issues. History and medications reviewed. Epic updated as needed Refills and/or prescriptions taken care of and meds adjusted as indicated after reviewed history, exam and labs. Health Maintenance reviewed. Updated record and/or ordered tests as recorded. Encouraged on efforts at healthy diet and regular exercise and adequate sleep. Stopping Doxy--GI symptoms not better and has exacerbation of bronchiectiasis. Starting Cipro to cover both diverticulitis and bronchiectasis. Also try metronidazole again in case that was not the cause of upset stomach last time was tried. Forwarding this note to Dr. Quesada to update him on her ongoing symptoms and concerns. I did give a short term prescription for the pain med (hydrocodone) and reminded her that it can contribute to constipation. Will see if tolerates Amitiza and if effective. Sent a RX to [facility] along with coupon for [employer] son not over $100 as was at [facility]. Reminded her to try simethicone for gas and related gas pain. Encouraged to get adequate nutrition and take 2 bottles of Ensure daily if not able to eat adequately. Reminded to take pantoprazole. Has follow up appointment with me already scheduled for the end of this month. Jannet Mitchell MD documented in this encounter [facility] 09-24-2022 Miscellaneous Notes She has appointment Tuesday Pt calls requesting atb and cough medicine. Explained needs to be seemn even offered urgent care . States Dr. Mitchell will do this for me. Explained she is out today asks this be sent to her for tomorrow. documented in this encounter [facility] 08-25-2022 Miscellaneous Notes Detailed message left as to same. Can start taking after colonoscopy. Avoid meds that might slow bowels down and keep from getting adequate clean out for colonoscopy. The following approved medication requests have been transmitted electronically. Requested Prescriptions Signed Prescriptions Disp Refills codeine-guaiFENesin (ROBITUSSIN AC) 10-100 mg/5 mL syrup 240 mL 0 Sig: Take 5-10 mL by mouth four times daily as needed for cough for up to 7 days. May cause drowsiness. Authorizing Provider: JANNET MITCHELL MD Patient checking on reply. Advised since today is Tuesday and colonoscopy is Tue, pcp may not want that codeine in her system since she will be receiving medication at her colonoscopy. Patient states just hold off then but she would like to have the codeine cough medicine on . Patient asking pcp to send Rx for cough medicine with codeine. Reports she has a little bit of a cough again. Reports she is scheduled for EGD/Colonoscopy with Dr. Quesada next 08-25-22 and if she has a cough,, they will not do the tests. Please advise patient. documented in this encounter [facility] 08-13-2022 Note HNO ID: [id number] Author: Jannet Mitchell MD Service: ? Author Type: Physician Type: Progress Notes Filed: 09/13/2022 1:04 AM Note Text: This note was created using [employer]. Subjective Harry Tran is a 81 year old female. Patient presents with: F/U 3 months SUBJECTIVE: Harry Tran is a 81 year old year old lady here today for follow up appointment for review of medical conditions. Will see GI 08/25. Pain just a little bit better controlled compared to last time seen. Weight staying up 115 pounds now. Taking Ensure with each meal to keep nutrition up. 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 (For Gas) (Patient taking differently: Take 1 capsule by mouth four times daily as needed. (For Gas)) dicyclomine (BENTYL) 20 mg tablet Take 1 tablet by mouth before meals and at bedtime. As directed gabapentin (NEURONTIN) 300 mg capsule Take 1-2 capsules by mouth daily at bedtime for 90 days. As directed ondansetron (ZOFRAN) 4 mg tablet Take 1-2 tablets by mouth every 8 hours as needed for nausea/vomiting. HYDROcodone-acetaminophen (NORCO) 5-325 mg per tablet Take 1 tablet by mouth twice daily as needed for up to 30 days. clonazePAM (KLONOPIN) 0.5 mg tablet Take 2 tablets by mouth once daily as needed for up to 30 days. As directed sucralfate (CARAFATE) 1 gram tablet Take 1 tablet by mouth before meals and at bedtime. traZODone (DESYREL) 50 mg tablet Take 1-2 tablets by mouth daily at bedtime. loperamide (IMODIUM) 2 mg cap(s) Take 1 capsule by mouth four times daily as needed. No current facility-administered medications for this visit. Review of Systems Objective BP 116/58 Pulse 74 Temp 36.7 ?C (98 ?F) Resp 18 Wt 52.2 kg (115 lb) SpO2 96% BMI 18.85 kg/m? Physical Exam Constitutional: Appearance: Normal appearance. HENT: Head: Normocephalic. Eyes: Conjunctiva/sclera: Conjunctivae normal. Cardiovascular: Rate and Rhythm: Normal rate and regular rhythm. Heart sounds: Normal heart sounds. Pulmonary: Effort: Pulmonary effort is normal. Comments: Fine crackles in bases; no wheezes Abdominal: Tenderness: There is abdominal tenderness in the right upper quadrant, epigastric area and left upper quadrant. There is no guarding or rebound. Skin: General: Skin is warm and dry. Neurological: General: No focal deficit present. Mental Status: She is alert and oriented to person, place, and time. Psychiatric: Mood and Affect: Mood normal. Behavior: Behavior normal. Thought Content: Thought content normal. Judgment: Judgment normal. Assessment and Plan Encounter Diagnosis ICD-10-CM 1. Psychophysiological insomnia F51.04 gabapentin (NEURONTIN) 300 mg capsule 2. Pain of upper abdomen R10.10 dicyclomine (BENTYL) 20 mg tablet Scopes in August on the with Dr. Quesada. 3. Bronchiectasis without complication (HCC) J47.9 4. Nausea R11.0 ondansetron (ZOFRAN) 4 mg tablet Additional Medical Conditions Last edited 08/13/22 15:40 EDT by Jannet Mitchell MD Above issues addressed with patient. Patient involved in shared decision making for management of medical issues. History and medications reviewed. Epic updated as needed Refills and/or prescriptions taken care of and meds adjusted as indicated after reviewed history, exam and labs. Health Maintenance reviewed. Updated record and/or ordered tests as recorded. Encouraged on efforts at healthy diet and regular exercise and adequate sleep. I spent a total of 34 minutes on the date of the service which included [id number] patient care, completing clinical documentation, performing a medically appropriate examination, counseling and educating the patient/family/caregiver, and ordering medications, tests, or procedures . Jannet Mitchell MD [facility] 08-13-2022 History of Present illness Narrative This note was created using goodideazs. Subjective Harry Tran is a 81 year old female. Patient presents with: F/U 3 months SUBJECTIVE: Harry Tran is a 81 year old year old lady here today for follow up appointment for review of medical conditions. Will see GI 4/5. Pain just a little bit better controlled compared to last time seen. Weight staying up 115 pounds now. Taking Ensure with each meal to keep nutrition up. 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; was reactive depression after the of her mom, not active Diverticulosis of colon (without mention of hemorrhage) Esophageal reflux on [facility] Herpes simplex Hot flash, menopausal has been premarin since menopause Internal hemorrhoids without mention of complication Mitral valve disorders(424.0) MVP Nausea alone Other specified circulatory system disorders raynauds Psoriasis 07/03/2009 Unspecified gastritis and gastroduodenitis on [facility] Current Outpatient Medications Medication Sig Simethicone 125 mg cap Take 1 capsule by mouth four times daily. (For Gas) (Patient taking differently: Take 1 capsule by mouth four times daily as needed. (For Gas)) dicyclomine (BENTYL) 20 mg tablet Take 1 tablet by mouth before meals and at bedtime. As directed gabapentin (NEURONTIN) 300 mg capsule Take 1-2 capsules by mouth daily at bedtime for 90 days. As directed ondansetron (ZOFRAN) 4 mg tablet Take 1-2 tablets by mouth every 8 hours as needed for nausea/vomiting. HYDROcodone-acetaminophen (NORCO) 5-325 mg per tablet Take 1 tablet by mouth twice daily as needed for up to 30 days. clonazePAM (KLONOPIN) 0.5 mg tablet Take 2 tablets by mouth once daily as needed for up to 30 days. As directed sucralfate (CARAFATE) 1 gram tablet Take 1 tablet by mouth before meals and at bedtime. traZODone (DESYREL) 50 mg tablet Take 1-2 tablets by mouth daily at bedtime. loperamide (IMODIUM) 2 mg cap(s) Take 1 capsule by mouth four times daily as needed. No current facility-administered medications for this visit. Review of Systems Objective BP 116/58 Pulse 74 Temp 36.7 C (98 F) Resp 18 Wt 52.2 kg (115 lb) SpO2 96% BMI 18.85 kg/m Physical Exam Constitutional: Appearance: Normal appearance. HENT: Head: Normocephalic. Eyes: Conjunctiva/sclera: Conjunctivae normal. Cardiovascular: Rate and Rhythm: Normal rate and regular rhythm. Heart sounds: Normal heart sounds. Pulmonary: Effort: Pulmonary effort is normal. Comments: Fine crackles in bases; no wheezes Abdominal: Tenderness: There is abdominal tenderness in the right upper quadrant, epigastric area and left upper quadrant. There is no guarding or rebound. Skin: General: Skin is warm and dry. Neurological: General: No focal deficit present. Mental Status: She is alert and oriented to person, place, and time. Psychiatric: Mood and Affect: Mood normal. Behavior: Behavior normal. Thought Content: Thought content normal. Judgment: Judgment normal. Assessment and Plan Encounter Diagnosis ICD-10-CM 1. Psychophysiological insomnia F51.04 gabapentin (NEURONTIN) 300 mg capsule 2. Pain of upper abdomen R10.10 dicyclomine (BENTYL) 20 mg tablet Scopes in August on the with Dr. Quesada. 3. Bronchiectasis without complication (HCC) J47.9 4. Nausea R11.0 ondansetron (ZOFRAN) 4 mg tablet Additional Medical Conditions Last edited 08/13/22 15:40 EDT by Jannet Mitchell MD Above issues addressed with patient. Patient involved in shared decision making for management of medical issues. History and medications reviewed. Epic updated as needed Refills and/or prescriptions taken care of and meds adjusted as indicated after reviewed history, exam and labs. Health Maintenance reviewed. Updated record and/or ordered tests as recorded. Encouraged on efforts at healthy diet and regular exercise and adequate sleep. I spent a total of 34 minutes on the date of the service which included [id number] patient care, completing clinical documentation, performing a medically appropriate examination, counseling and educating the patient/family/caregiver, and ordering medications, tests, or procedures . Jannet Mitchell MD documented in this encounter [facility] 08-04-2022 Miscellaneous Notes The following approved medication requests have been transmitted electronically. Requested Prescriptions Signed Prescriptions Disp Refills HYDROcodone-acetaminophen (NORCO) 5-325 mg per tablet 30 tablet 0 Sig: Take 1 tablet by mouth twice daily as needed for up to 30 days. Authorizing Provider: JANNET MITCHELL MD Last RX was from March. Uses sparingly for severe pain. Pt calling to check status. Please advise. Edith Chester LPN Last OV: 07/27/22. Pt reports she is having sever pain across her ribs and pcp knows about this pain. Pt reports the pain is an 8 on pain scale, constant, and hard to describe . Pt reports she has tried tylenol and other otc meds but nothing is helping with the pain. Pt reports she has trouble sleeping because of the pain. Pt reports she has a colonoscopy in three weeks but needs something for the pain she is having now. Pt reports pcp has prescribed hydrocodone in the past and it helps with the pain. Please review and advise. Patient has been identified by name and date of : Yes Requested Prescriptions Pending Prescriptions Disp Refills HYDROcodone-acetaminophen (NORCO) 5-325 mg per tablet 30 tablet 0 Sig: Take 1 tablet by mouth twice daily as needed for up to 30 days. RX INSTRUCTIONS: Patient aware RX will be sent to pharmacy. No need to notify patient. Geraldine Otero LPN documented in this encounter [facility] 07-30-2022 Miscellaneous Notes Noted. Spoke with pt and she reports her bowels are moving a little and she will try the GasX. Edith Chester LPN Check on patient to make sure bowels are moving and not developing constipation or signs of bowel obstruction or ileus. May take GasX for what sounds like bloating/gas retention after slowing bowels down with Imodium. Pt calling to let you know she was seen last night by you and she wanted to let you know her stomach is swelling and hurts. She had a small BM today around 2 pm. Pt has had watery stool and yesterday took 3 imodium to make sure she did not have any watery stool and could come for her apt yesterday. Pt eating even though she is having pains in her stomach and drinking ensure. Pt wondering why she her stomach is swelling. Please advise pt. Edith Chester LPN documented in this encounter [facility] 07-27-2022 Instructions Jannet Mitchell MD - 07/27/2022 8:07 PM EST Take the Imodium (Loperamide) up to 4 times daily to control diarrhea. At least twice daily till bowels settle down. Take Tylenol for fevers as needed. Stay hydrated. Drink at least 2 liters of fluid a day. Need to make up for what is lost with diarrhea. If lose weight, need to increase fluid intake to get weight back up. Dicyclomine can help with the abdominal cramping and urgency after eating. Sucralfate--at least twice daily. Can be 4 times daily to protect stomach. documented in this encounter [facility] 07-27-2022 History of Present illness Narrative This note was created using [employer]. Subjective Harry Tran is a 81 year old female. Patient presents with: Established Patient SUBJECTIVE: Harry Tran is a 81 year old year old lady here today for follow up appointment for review of medical conditions. Had to take 3 Imodium to help prevent diarrhea to be able to com today's appointment. Fecal incontinence. Was not using the Imodium but does have. Also not using carafate or Bentyl August [address] Quesada. Noted sore area left lower breast at 6 o'clock--no large or hard lump but feels like glandular thickened tissue. Depression Screening 12/02/2016 01/06/2017 01/25/2018 07/27/2022 PHQ-2 Score - 3 0 0 PHQ-9 Score - 4 - - NEREYDA-2 Total Score 1 - - - Depression screening tool completed and reviewed. Based on score and interview, patient is not at risk for depression. Screening tool discussed with patient, and I recommended no further intervention at this time. 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 clonazePAM (KLONOPIN) 0.5 mg tablet Take 2 tablets by mouth once daily as needed for up to 30 days. As directed gabapentin (NEURONTIN) 300 mg capsule Take 2 capsules by mouth daily at bedtime for 90 days. (Patient taking differently: Take 300 mg by mouth daily at bedtime.) ondansetron (ZOFRAN) 4 mg tablet Take 1-2 tablets by mouth every 8 hours as needed for nausea/vomiting. traZODone (DESYREL) 50 mg tablet Take 1-2 tablets by mouth daily at bedtime. sertraline (ZOLOFT) 25 mg tablet Take 1 tablet by mouth once daily. As directed (Patient not taking: No sig reported) Simethicone 125 mg cap Take 1 capsule by mouth four times daily. (For Gas) (Patient not taking: No sig reported) dicyclomine (BENTYL) 20 mg tablet Take 0.5 tablets by mouth before meals and at bedtime. (Patient not taking: No sig reported) sucralfate (CARAFATE) 1 gram tablet Take 1 tablet by mouth before meals and at bedtime. (Patient not taking: No sig reported) No current facility-administered medications for this visit. Review of Systems Objective BP 110/68 Pulse 94 Temp 37.7 C (99.9 F) Resp 18 Wt 52.2 kg (115 lb) SpO2 96% BMI 18.85 kg/m Physical Exam Constitutional: Appearance: Normal appearance. HENT: Head: Normocephalic. Eyes: Conjunctiva/sclera: Conjunctivae normal. Cardiovascular: Rate and Rhythm: Normal rate and regular rhythm. Heart sounds: Normal heart sounds. Pulmonary: Effort: Pulmonary effort is normal. Breath sounds: Normal breath sounds. Abdominal: General: Abdomen is flat. Palpations: Abdomen is soft. There is no mass. Tenderness: There is abdominal tenderness. Hernia: No hernia is present. Skin: General: Skin is warm and dry. Neurological: General: No focal deficit present. Mental Status: She is alert and oriented to person, place, and time. Psychiatric: Mood and Affect: Mood normal. Behavior: Behavior normal. Thought Content: Thought content normal. Judgment: Judgment normal. Assessment and Plan Encounter Diagnosis ICD-10-CM 1. Acute diarrhea R19.7 Low grade fever noted. Suspect viral illness on top of chronic diarrhea and abdominal pain issues. 2. Anxiety F41.9 clonazePAM (KLONOPIN) 0.5 mg tablet 3. Psychophysiological insomnia F51.04 clonazePAM (KLONOPIN) 0.5 mg tablet 4. RUQ pain R10.11 sucralfate (CARAFATE) 1 gram tablet 5. Gastroesophageal reflux disease, unspecified whether esophagitis present K21.9 sucralfate (CARAFATE) 1 gram tablet Above issues addressed with patient. Patient involved in shared decision making for management of medical issues. History and medications reviewed. Epic updated as needed Refills and/or prescriptions taken care of and meds adjusted as indicated after reviewed history, exam and labs. Health Maintenance reviewed. Updated record and/or ordered tests as recorded. Waiting for evaluation by GI. Continue present management as discussed. Reinforced indications for GI meds and recommendations for taking meds. Stable with control of anxiety as needed clonazepam given stressors with ongoing GI symptoms. At this time benefits outweigh risks. Continue to monitor for adverse effects and indications for decreasing dose or tapering off. No signs of diversion or abuse of medication(s); no adverse effects. Continue present management. Jannet Mitchell MD documented in this encounter [facility] 03-07-2023 Miscellaneous Notes Patient has OV this evening 07/27/2022 and will discuss at that time. Magalie Ponce LPN Had diagnostic mammogram in January and was determined to be negative for signs of cancer. Verify reason requesting left sided mammogram now. Was there a change in lump on self breast exam. Note that if has more concerns, recommended after January mammogram referral to general surgeon to determine whether needed to pursue biopsy or excision of lump versus further imaging. Pt calling to get orders to have a repeat Mammogram on left. Please review and advise pt. Edith Chester LPN documented in this encounter [facility] 07-27-2022 Miscellaneous Notes Message left on secure voicemail. Magalie Ponce LPN Noted Declined going to the ER prior times had called in regarding abdominal pain. Will discuss at appointment tomorrow, Patient calling to say she is having recurrent mid lower abdominal pain 8/10 which gets worse after she eats. She states she is scheduled for a Colonoscopy in August but she says her symptoms are worsening and is asking what PCP can do for her right now. She says she takes Zofran but that does not help. Advised patient that Zofran is for nausea. She denies vomiting, diarrhea, constipation, fever, blood in stool. Denies urinary symptoms. Advised ER evaluation due to pain level 8/10 at time of call which she adamantly refuses. Scheduled first available appointment with PCP tomorrow 07/27 @ 7 PM. Dacia Sanabria RN documented in this encounter [facility] 07-10-2022 History of Present illness Narrative This note was created using [employer]ideaz[employer]. Subjective Harry Tran is a 81 year old female. Patient presents with: Cough: Productive cough SUBJECTIVE: Harry Tran is a 81 year old year old lady here today for follow up appointment for review of medical conditions. Scheduled for EGD and colonoscopy. On cancellation list. Cold symptoms noted. Increased cough with bad tasting phlegm. Had some chills but no fevers. Sinuses also acting up with pain and pressure with runny nose and post nasal drainage. Tends to get diarrhea with antibiotic even plain amoxicillin. 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 As directed sertraline (ZOLOFT) 25 mg tablet Take 1 tablet by mouth once daily. As directed (Patient not taking: Reported on 06/25/2022) gabapentin (NEURONTIN) 300 mg capsule Take 2 capsules by mouth daily at bedtime for 90 days. (Patient taking differently: Take 300 mg by mouth daily at bedtime.) Simethicone 125 mg cap Take 1 capsule by mouth four times daily. (For Gas) (Patient not taking: Reported on 05/28/2022) dicyclomine (BENTYL) 20 mg tablet Take 0.5 tablets by mouth before meals and at bedtime. (Patient not taking: No sig reported) ondansetron (ZOFRAN) 4 mg tablet Take 1-2 tablets by mouth every 8 hours as needed for nausea/vomiting. sucralfate (CARAFATE) 1 gram tablet Take 1 tablet by mouth before meals and at bedtime. (Patient not taking: No sig reported) traZODone (DESYREL) 50 mg tablet Take 1-2 tablets by mouth daily at bedtime. No current facility-administered medications for this visit. Review of Systems Objective BP 108/70 Pulse 72 Temp 36.6 C (97.9 F) (Temporal) Resp 16 Wt 52.2 kg (115 lb) SpO2 99% BMI 18.85 kg/m Last 5 Encounter Wt Readings: Date: Wt: 07/10/2022 52.2 kg (115 lb) 05/28/2022 51 kg (112 lb 6.4 oz) 05/21/2022 47.2 kg (104 lb) 03/22/2022 52.2 kg (115 lb) 11/03/2021 52.2 kg (115 lb) No waist measurement recorded Estimated body mass index is 18.85 kg/m as calculated from the following: Height as of 10/14/21: 166.4 cm (5' 5.5 ). Weight as of this encounter: 52.2 kg (115 lb). Last 5 Encounter BP Readings: Date: BP: 07/10/2022 108/70 05/28/2022 110/68 05/21/2022 122/68 03/30/2022 142/82 03/22/2022 118/64 Physical Exam Constitutional: General: She is not in acute distress. Appearance: She is ill-appearing. She is not toxic-appearing or diaphoretic. HENT: Head: Normocephalic. Eyes: Conjunctiva/sclera: Conjunctivae normal. Cardiovascular: Rate and Rhythm: Normal rate and regular rhythm. Heart sounds: Normal heart sounds. Pulmonary: Effort: Pulmonary effort is normal. Comments: A few scattered low pitched rhonchi Skin: General: Skin is warm and dry. Neurological: General: No focal deficit present. Mental Status: She is alert and oriented to person, place, and time. Psychiatric: Mood and Affect: Mood normal. Behavior: Behavior normal. Thought Content: Thought content normal. Judgment: Judgment normal. Assessment and Plan Encounter Diagnosis ICD-10-CM 1. Bronchiectasis with acute exacerbation (HCC) J47.1 CONSULT TO PULMONARY MEDICINE Recurrent episodes of bronchitis 2. Diarrhea, unspecified type R19.7 loperamide (IMODIUM) 2 mg cap(s) 3. Acute pansinusitis, recurrence not specified J01.40 amoxicillin (AMOXIL) 875 mg tablet Also with pain and tenderness in sinuses 4. Cough R05.9 codeine-guaiFENesin (ROBITUSSIN AC) 10-100 mg/5 mL syrup 5. Bronchiectasis without complication (HCC) J47.9 codeine-guaiFENesin (ROBITUSSIN AC) 10-100 mg/5 mL syrup Above issues addressed with patient. Patient involved in shared decision making for management of medical issues. History and medications reviewed. Epic updated as needed Refills and/or prescriptions taken care of and meds adjusted as indicated after reviewed history, exam and labs. Health Maintenance reviewed. Updated record and/or ordered tests as recorded. Discussed should follow with pulmonology given bronchiectasis and recurrent exacerbations. Treating acute illness and making referral. Further evaluation and treatment as indicated. Jannet Mitchell MD documented in this encounter [facility] 06-28-2022 Miscellaneous Notes Pt called and is notified of providers message and instructions. Pt voices understanding. Janie Andre RN Would remind patient that all meds have potential side effects but that does not mean they will cause side effects. If anxiety and chronic pain persist despite the as needed medications prescribed, recommend reconsider trying Zoloft starting at the low dose half of the 25 mg pill and increase as tolerated as needed (note that max dose is 100 to 150 mg per day). There are potential side effects from clonazepam too. Can discuss at next follow up appointment, The following approved medication requests have been transmitted electronically. Requested Prescriptions Signed Prescriptions Disp Refills clonazePAM (KLONOPIN) 0.5 mg tablet 30 tablet 0 Sig: Take 2 tablets by mouth once daily as needed for up to 30 days. As directed Authorizing Provider: JANNET MITCHELL MD Pt states she threw the Zoloft away because she read about it and it had too many side effects. Updated med list. Patient has been identified by name and date of : Yes, Provider Dr Mitchell Date 06/25/22 Time 1249. Patient phones for refill(s): Requested Prescriptions Pending Prescriptions Disp Refills clonazePAM (KLONOPIN) 0.5 mg tablet 30 tablet 0 Sig: Take 2 tablets by mouth once daily as needed for up to 30 days. As directed Date of last office visit in primary care: 05/28/22 Future visit: 08/13/22 Last 2 Encounter Wt Readings: Date: Wt: 05/28/2022 51 kg (112 lb 6.4 oz) 05/21/2022 47.2 kg (104 lb) Previous labs/tests for medication: Blood Pressure: BUN (mg/dL) Date Value 10/25/2019 10 Sodium (mmol/L) Date Value 10/25/2019 136 Last 1 Encounter BP Readings: Date: BP: 05/28/2022 110/68 Liver Function: ALT (U/L) Date Value 07/08/2020 16 AST (U/L) Date Value 07/08/2020 25 Please advise. Thank you. Janie Andre RN documented in this encounter [facility] 06-19-2022 Miscellaneous Notes Called and left a detailed voicemail notifying patient of providers message. Hospital phone number was left in case patient had any questions. Janie Andre RN Patient has bronchiectasis. Okay meds as requested but remember red flags for needing to go to hospital (worsening SOB, increased FORREST, not able to maintain nutrition and hydration, high fevers, etc). The following approved medication requests have been transmitted electronically. Requested Prescriptions Signed Prescriptions Disp Refills ciprofloxacin HCl (CIPRO) 500 mg tablet 20 tablet 0 Sig: Take 1 tablet by mouth twice daily for 10 days. Authorizing Provider: JANNET MITCHELL codeine-guaiFENesin (ROBITUSSIN AC) 10-100 mg/5 mL syrup 473 mL 0 Sig: Take 5-10 mL by mouth every 4 hours as needed for cough for up to 14 days. May cause drowsiness. Authorizing Provider: JANNET MITCHELL MD Pt called in and reports provider know she has been the ER twice. She states she is getting a bad cold and needs the provider to call in cough medicine and Cipro before the weekend. She states she doesn't want to have to go to the ER again. Please call and advise. documented in this encounter [facility] 06-01-2022 Miscellaneous Notes Patient aware of provider recommendations for fluid intake and medication instructions. Nursing explained medication instructions x 2 and had patient repeat back. Patient verbalizes understanding, wanting to take the clonazepm daily instead as needed. Re-read PCP message to patient concerning dosing and stated understanding. Magalie Ponce LPN Make sure in addition to the Ensure, needs water, electrolyte fluids, etc to equal at least 8 cups per day. Recommend keeping a log of fluid intake for at least the next week. Log weight first thing in the morning, ideally wearing the same thing every day. We discussed not using the clonazepam on a daily basis because of increased risk for falls, depression ,etc. Okay to have to take as needed. If needs daily for a few days then switch to as needed, that is okay. Note that it takes time for hair to regrow so might not see improvement for a couple weeks. The following approved medication requests have been transmitted electronically. Requested Prescriptions Signed Prescriptions Disp Refills clonazePAM (KLONOPIN) 0.5 mg tablet 30 tablet 0 Sig: Take 2 tablets by mouth once daily as needed for up to 30 days. As directed Authorizing Provider: JANNET MITCHELL MD Patient calls and states that she has lost a lot of weight. Patient states that she went from 115 to 100 pounds. Patient states that she is also losing her hair. Patient asking if provider can send in prescription for Clonazepam? Please review and advise, Desirae Case RN Patient reports she threw away all of her medications, except zofran and trazedone, because she didn't want to take drugs anymore. Now she wants to take her Klonopin 0.5 mg 1 daily. Asking if pcp can send Rx to [facility]? Please advise patient. Reports she continues to loose weight, despite drinking 3 ensure max with 30 mg protein each, daily. documented in this encounter [facility] 05-28-2022 History of Present illness Narrative This note was created using [employer]. Subjective Harry Tran is a 81 year old female. Patient presents with: ED Follow-up: [facility] ED follow up (05/19/2022) SUBJECTIVE: Harry Tran is a 81 year old year old lady here today for ER follow up appointment for review of medical conditions. Daughter present. Reviewed evaluation done by GI provider she brought mother to right before left for [place]. Weight was 119.5 last year in August. States that lost 6 pounds in past few days though our scales note had gained some weight back since last seen Just does not feel well. Ongoing issues with abdominal pain and feeling sick to her stomach. Hard to eat or drink well. Gets an nutritional supplement in daily. Does not like things too milky like Ensure. Is fine with drinking lots of water. Reviewed that does not want back on clonazepam. 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 (Patient taking differently: Take 300 mg by mouth daily at bedtime.) ondansetron (ZOFRAN) 4 mg tablet Take 1-2 tablets by mouth every 8 hours as needed for nausea/vomiting. traZODone (DESYREL) 50 mg tablet Take 1-2 tablets by mouth daily at bedtime. Simethicone 125 mg cap Take 1 capsule by mouth four times daily. (For Gas) (Patient not taking: Reported on 05/28/2022) dicyclomine (BENTYL) 20 mg tablet Take 0.5 tablets by mouth before meals and at bedtime. (Patient not taking: No sig reported) sucralfate (CARAFATE) 1 gram tablet Take 1 tablet by mouth before meals and at bedtime. (Patient not taking: No sig reported) No current facility-administered medications for this visit. OBJECTIVE: BP 110/68 Pulse (!) 58 Temp 36.5 C (97.7 F) Resp 18 Wt 51 kg (112 lb 6.4 oz) SpO2 97% BMI 18.42 kg/m Last 5 Encounter Wt Readings: Date: Wt: 05/28/2022 51 kg (112 lb 6.4 oz) 05/21/2022 47.2 kg (104 lb) 03/22/2022 52.2 kg (115 lb) 11/03/2021 52.2 kg (115 lb) 10/17/2021 52.2 kg (115 lb) No waist measurement recorded Estimated body mass index is 18.42 kg/m as calculated from the following: Height as of 5/25/22: 166.4 cm (5' 5.5 ). Weight as of this encounter: 51 kg (112 lb 6.4 oz). Last 5 Encounter BP Readings: Date: BP: 05/28/2022 110/68 05/21/2022 122/68 03/30/2022 142/82 03/22/2022 118/64 Physical Exam Constitutional: General: She is not in acute distress. HENT: Head: Normocephalic. Eyes: Conjunctiva/sclera: Conjunctivae normal. Cardiovascular: Rate and Rhythm: Normal rate and regular rhythm. Heart sounds: Normal heart sounds. Pulmonary: Effort: Pulmonary effort is normal. Breath sounds: Normal breath sounds. Abdominal: General: Abdomen is flat. Bowel sounds are normal. Palpations: Abdomen is soft. Tenderness: There is generalized abdominal tenderness. Skin: General: Skin is warm and dry. Neurological: General: No focal deficit present. Mental Status: She is alert and oriented to person, place, and time. Psychiatric: Attention and Perception: Attention and perception normal. Mood and Affect: Mood is anxious and depressed. Speech: Speech normal. Behavior: Behavior normal. Thought Content: Thought content normal. Judgment: Judgment normal. Assessment and Plan Encounter Diagnosis ICD-10-CM 1. RUQ pain R10.11 2. Anxiety F41.9 sertraline (ZOLOFT) 25 mg tablet Will try Zoloft instead of clonazepam. May help also with IBS. 3. 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 Muscle Strain, RUQ T14.8XXA 6. Irritable bowel syndrome with diarrhea K58.0 Above issues addressed with patient and daughter.. Patient involved in shared decision making for management of medical issues. Will see if able to get in to see GI Dr. Friend sooner since missed the appointment that had been moved up. Reviewed with daughter work up that was previously done in [place], recent evaluation that was started before she came back to [place], and work up done through [facility]. Stay on present meds. Focus on adequate hydration/rehydration and getting enough nutrition even if through mostly supplements. Try to stay on low residual foods. Further evaluation and treatment as indicated. History and medications reviewed. Epic updated as needed Refills and/or prescriptions taken care of and meds adjusted as indicated after reviewed history, exam and labs. Health Maintenance reviewed. Updated record and/or ordered tests as recorded. Encouraged on efforts at healthy diet and regular exercise and adequate sleep. I spent a total of at least 40 minutes on the date of the service which included [id number] patient care, completing clinical documentation, obtaining and/or reviewing separately obtained history, performing a medically appropriate examination, counseling and educating the patient/family/caregiver, and ordering medications, tests, or procedures. Jannet Mitchell MD documented in this encounter [facility] 05-28-2022 Miscellaneous Notes ER Information to PCP as requested. Checking on Dr. Quesada. Magalie Ponce LPN Info from ER please Any word back from Dr. Quesada's office? Patient returned call and given provider's message below with verbalized understanding. Reports daughter is here now and will be coming with her to appt on Tuesday. Reports she was seen in [facility] ER yesterday. Patient asking pcp office to let her know when you hear from Dr. Quesada. LEFT MESSAGE FOR PATIENT TO CALL OFFICE. Did Dr. Quesada's office reach out to patient? 2nd Message left for Dr. Amezcuas office on the back line asking for a return call. Can take 3 of the Max protein per day and drink other fluids to stay hydrated. As long as she is urinating and mouth is not too dry, then sounds like getting some hydration. When is daughter flying in. Noted that have a call into gastro office--was the back line number used? I think I told her that I hesistate to call to the ER since they do not take too kindly to an outside doctor telling them what to do. If not sick enough needs to go to ER, could add her to tomorrow afternoon's schedule tomorrow. Pt called and is notified of providers message and instructions. Pt states well what if I go to the ER and they don't give me fluids when I go. She wants to know if this provider would call and let them know she needed IVF. She states she doesn't remember if she got any when she was in, she couldn't remember if she has an IV placed. She kept saying, I don't know what I'm going to do. I let her know that provider advised she go to the ER preferably [place] over [facility] and that she have someone drive her. She states her daughter is flying in and she could have her drive her to [employer] or [employer]. Pt states she wouldn't be able to afford 6-8 Ensures a day, and she states she takes the Max Protein Ensure. Pt wants to know if provider could call Dr Sangita and get her in today or tomorrow. I told her I don't know if she would be able to get them to take her in that quickly. Called and left a message on Gastro nurse line about getting Pt in for an appointment.[facility] does not do IVF. Janie Andre RN 1) She is dehydated based on rapid weight loss not just over the weekend but also prior to ER evaluation--they did not give any IVF since labs were fine . If not able to get at least 2 to 3 liters of fluids with electrolytes in and keep weight up, should go to ER (consider [facility] and not [facility]--prefer someone bring her but as discussed last week, aware that she does not have anyone here she can rely on). Might have to call 911 if too weak to get there on her own. If not that severe, are we able to give IVF here? Needs appointment with Friend rescheduled--missed the one that was made for her. 3) She can get as many in as she can to get fluids and calories and protein up. Depends also on which Ensure she chooses to get (amount of protein and calories per bottle). Original aim for 6 to 8 bottles if not if still not able to eat much Pt calling to let you know she last saw you on 05-21-22 and she has lost another 5 #. She is asking who she needs to see. Pt states not feeling well having the same symptoms as she was having on 05-21-22. Referral to someone due to weight loss, diarrhea breathing issues she feels due to dropping weight so fast, not sure How many Ensures can she drink in a day Refill on Gabapentin Pt states she takes her thumb and presses and the skin does not bounce back. Patient has been identified by name and date of : Yes Patient phones for refill(s): Requested Prescriptions Pending Prescriptions Disp Refills gabapentin (NEURONTIN) 300 mg capsule 60 capsule 2 Sig: Take 2 capsules by mouth daily at bedtime for 90 days. Date of last office visit in primary care: 05/21/22 next apt 05/28/22. Last 2 Encounter Wt Readings: Date: Wt: 05/21/2022 47.2 kg (104 lb) 03/22/2022 52.2 kg (115 lb) Previous labs/tests for medication: Not applicable Please advise soon per pt. Thank you. Edith Chester LPN documented in this encounter [facility] 05-21-2022 Instructions Jannet Mitchell MD - 05/21/2022 4:41 PM EST Ensure Clear Needs fluids with some calories. Juice, Gatorade, Powerade, Vitamin water. Avoid fruits or veggies that have skin or are not cooked. Need to get at least 8 to 10 cups of fluids in daily to get rehydrated. Push fluids if having diarrhea or if weight is going down. Try taking Simethicone 125 mg 4 pills daily (if not able to eat meals, then take 4 times daily spaced apart Okay to take sucralfate in case of ulcer or gastritis. Okay to stay on just Pepcid and hold off on omperazole or Nexium--may add back if worsening gastritis and reflux symptoms. Okay to take the ondansetron every 6 to 8 hours routinely if needed to control nausea. Recommend [facility] ER if needed. [facility] is the closest. documented in this encounter [facility] 05-21-2022 History of Present illness Narrative This note was created using goodideazs. Subjective Harry Tran is a 81 year old female. Patient presents with: ER F/U: [facility] SUBJECTIVE: Harry Tran is a 81 year old year old lady here today for ER follow up appointment for review of medical conditions. Reviewed ER evaluation. Was referred there since lose 6 pounds in 6 days and not able to keep much down. ER did not give IVF. Did CT scan but possible ileus not addressed. Feels deathly sick when eats Has has black stools the past month. Losing hair. Pain bad in stomach when eats. Saw GI in [place]. Just saw for consultation day was leaving for home in [place] Only keeping down mashed potatoes and water. Did not see Dr. Friend--missed appointment since was given wrong time. Noted lots of gas and pain. Burping and flatulence. Took a hydrocodone the other night. 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 gabapentin (NEURONTIN) 300 mg capsule Take 2 capsules by mouth daily at bedtime for 90 days. dicyclomine (BENTYL) 20 mg tablet Take 0.5 tablets by mouth before meals and at bedtime. (Patient not taking: Reported on 05/21/2022) sucralfate (CARAFATE) 1 gram tablet Take 1 tablet by mouth before meals and at bedtime. (Patient not taking: Reported on 05/21/2022) traZODone (DESYREL) 50 mg tablet Take 1-2 tablets by mouth daily at bedtime. (Patient not taking: Reported on 05/21/2022) No current facility-administered medications for this visit. Review of Systems Objective BP 122/68 Pulse 68 Temp 37.1 C (98.8 F) Resp 18 Wt 47.2 kg (104 lb) SpO2 98% BMI 17.04 kg/m Last 5 Encounter Wt Readings: Date: Wt: 05/21/2022 47.2 kg (104 lb) 03/22/2022 52.2 kg (115 lb) 11/03/2021 52.2 kg (115 lb) 10/17/2021 52.2 kg (115 lb) 10/14/2021 52.2 kg (115 lb) No waist measurement recorded Estimated body mass index is 17.04 kg/m as calculated from the following: Height as of 10/14/21: 166.4 cm (5' 5.5 ). Weight as of this encounter: 47.2 kg (104 lb). Last 5 Encounter BP Readings: Date: BP: 05/21/2022 122/68 03/30/2022 142/82 03/22/2022 118/64 02/03/2022 122/72 12/21/2021 126/72 Physical Exam Constitutional: General: She is not in acute distress. Appearance: She is underweight. She is ill-appearing. She is not toxic-appearing or diaphoretic. HENT: Head: Normocephalic. Eyes: Conjunctiva/sclera: Conjunctivae normal. Cardiovascular: Rate and Rhythm: Normal rate and regular rhythm. Heart sounds: Normal heart sounds. Pulmonary: Effort: Pulmonary effort is normal. Breath sounds: Normal breath sounds. Abdominal: General: Abdomen is flat. Palpations: Abdomen is soft. There is no mass. Tenderness: There is abdominal tenderness (generalized). There is no guarding or rebound. Hernia: No hernia is present. Skin: General: Skin is warm and dry. Neurological: General: No focal deficit present. Mental Status: She is alert and oriented to person, place, and time. Psychiatric: Mood and Affect: Mood normal. Behavior: Behavior normal. Thought Content: Thought content normal. Judgment: Judgment normal. Abdomen/Pelvis W IV Cont ONLY [facility] [address] [place] [address] Abdomen/Pelvis W IV Cont ONLY MR#: [id number] Acct: [id number] Name: HARRY TRAN Rep #: [id number] : 1940 F 81 From: Kala Camilo MD PCP: Dr. Jannet Mitchell MD Status: REG ER Study: Abdomen/Pelvis W IV Cont ONLY Date of Exam: Exam# [id number] Ordering Dr: Tanner Chin MD STUDY: CT ABDOMEN AND PELVIS WITH CONTRAST REASON FOR EXAM: Female, 81 years old. Pain RADIATION DOSAGE (If Supplied By Facility): CTDIvol = ( 11.63 ) mGy, DLP = ( 315.64 ) mGycm TECHNIQUE: Transaxial images were obtained from the dome of the diaphragm to the symphysis pubis without oral contrast. IV 100mL Isovue-370 was administered. Sagittal and coronal images were reconstructed. Individualized dose optimization techniques were used for this CT. COMPARISON: September 29, 2020 CT angiogram abdomen and pelvis with runoff _ FINDINGS: The visualized lung bases are unremarkable. The visualized portions of the heart are within normal limits. There are bilateral breast implants. Normal liver. There are surgical clips in the gallbladder fossa consistent with a prior cholecystectomy. Normal spleen. Normal pancreas. Normal bilateral adrenal glands. There is mild right sided extrarenal pelvis stable since prior study. There is mild distention of the proximal left ureter. There are no visualized stones along the course of the left ureter. Findings are similar to the prior study. There is a small 2 to 3 mm cystic structure left kidney partially seen on prior study. There is mild thickening of the distal esophagus. There is a mildly distended gaseous appearance of most of the small bowel. There are numerous diverticula within the colon with retained contrast. There is no visualized inflammation or diverticulitis. There is quite a bit artifact within the study. Allowing for artifact the appendix is partially visualized and appears of normal caliber. Image #65 axial views. Aorta is tortuous and minimally calcified. There is a patent appearance of the bilateral common iliac arteries and branches. Normal inferior vena cava. Normal retroperitoneum. The bladder is distended. There is absence of the uterus consistent with a prior hysterectomy. Normal abdominal wall. There is visualized degenerative change in the thoracolumbar spine. There are Schmorl''s nodes in the lower thoracic spine. At L1-L2 there is disc space narrowing and endplate sclerosis without neural foramina narrowing the central stenosis. At L2-3 there is minimal disc space narrowing and no significant neural foramina narrowing or central stenosis. There is mild disc space narrowing at L3-L4 with minimal endplate sclerosis. There is a Schmorl''s node. At L4-L5 there is mild disc space narrowing minimal broad disc bulge. There is ligamentum flavum hypertrophy mild central stenosis and mild neural foramina narrowing. L5-S1 there is vacuum phenomenon without neural foramina narrowing or central stenosis. There is degenerative change of the SI joints. _ CT/Abdomen/Pelvis W IV Cont ONLY IMPRESSION: Moderate constipation gassy appearance of most of the small bowel consider ileus. There is diverticulosis without visualized diverticulitis. Status post cholecystectomy. Status post hysterectomy. Degenerative changes of the thoracolumbar spine. Bilateral breast implants. Minimal bilateral renal pelviectasis stable since prior study. Partially visualized appendix without evidence of inflammatory change. Electronically Signed: Kala Camilo MD at 13:11 EST , CC: Dr. Jannet Mitchell MD; Dr. Tanner Chin MD General Studies Program Chair: Signed Assessment and Plan Encounter Diagnosis ICD-10-CM 1. RUQ pain R10.11 2. Gastroesophageal reflux disease, unspecified whether esophagitis present K21.9 3. 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 Irritable bowel syndrome with diarrhea K58.0 Above issues addressed with patient. Patient involved in shared decision making for management of medical issues. Complicated GI history. Noted missed appointment with GI as apparently was given the wrong time and missed it. Working on getting appointment rescheduled. Red flag symptoms for needing to go back to the ER discussed, but noted that ER does not apparently think her symptoms are that severe when they see her despite the history of rapid weight loss from poor intake and clinical sighs of dehydration. Encouraged to get more fluids in daily to get rehydrated and get more nutritional supplements and low residual foods. Further evaluation and treatment as indicated. History and medications reviewed. Epic updated as needed Refills and/or prescriptions taken care of and meds adjusted as indicated after reviewed history, exam and labs. Health Maintenance reviewed. Updated record and/or ordered tests as recorded. Encouraged on efforts at healthy diet and regular exercise and adequate sleep. I spent a total of 40 minutes on the date of the service which included [id number] patient care, completing clinical documentation, obtaining and/or reviewing separately obtained history, performing a medically appropriate examination, counseling and educating the patient/family/caregiver, ordering medications, tests, or procedures, independently interpreting results (not separately reported), and communicating results to the patient/family/caregiver. Jannet Mitchell MD documented in this encounter [facility] 05-19-2022 Miscellaneous Notes See other tele enc. She did go to ER but they discharged her home despite weight loss, etc. PATIENT NOTIFIED OF SAME. States she is getting things ready incase they admit her and will go tomorrow. Explained to patient that it is recommended that she goes today but states It's just that I have been through too much and I promise that I will go tomorrow. I agree, if the provider who saw her advised she needs ER then would recommend eval in ER since we don't have the full picture of what she was seen for. Please let her know we agree and advise ER if that is their recommendation. Pt called and she reports she was seen in [place] due illness 05-10-22. She is now home She is still having black stool all the time. Dropping weight 5 # since 05-10-22. They called her and instructed her she needs to go to the [facility] ER today. Pt states she can not go till tomorrow. Pt was told to speak with her doctor. I let her know message will be given to her provider, but she needs to do what has been instructed on going to ER. Pt will have her cell phone on her and she will get to the ER as soon as she can. Edith Chester LPN documented in this encounter [facility] 04-22-2022 Miscellaneous Notes Patient calls and provider message below given. Patient verbalizes understanding. Anna Kirk RN VM left for patient to call PCP office for provider's message below. Myriam Burns RN If just cold symptoms at this time and not signs of exacerbation of bronchiectasis with bronchitis symptoms, does not need antibiotic. I will send a RX so can take if developing signs of bronchiectasis with bacterial bronchitis symptoms since will be traveling out of town. The following approved medication requests have been transmitted electronically. Requested Prescriptions Signed Prescriptions Disp Refills ciprofloxacin HCl (CIPRO) 500 mg tablet 20 tablet 0 Sig: Take 1 tablet by mouth twice daily for 10 days. Authorizing Provider: JANNET MITCHELL MD Patient calling with request for script for CIPRO for cold symptoms. She states she started with typical cold symptoms a couple days ago with nasal congestion and scratchy throat. She says she has now developed a cough. She is travelling to [place] this weekend and is concerned her symptoms will get worse. [facility]. Dacia Sanabria RN documented in this encounter [facility] 04-14-2022 Miscellaneous Notes Spoke with patient. Given message from provider's office. Patient verbalizes understanding. Dacia Sanabria RN Left vm for patient to return call to nurse for provider's message. Jessie Philip texted back that she will work on getting patient in sooner than next June. 1) Will check with his WHITTLING ROOM OPERATOR on Tuesday if any way patient can be seen sooner than June given her ongoing symptoms that have been severe at times. 2) Okay to take whole pill though if has not tried pill splitter yet to cut pills, may try that if not tolerating whole 20 mg tablet. Patient calls and wanted to let provider know that: She tried to get into see Dr. Quesada for her GI issues. Patient states that she cannot get into see him till June. Patient states that she cannot wait till June. Patient asking if there is anything provider can do about this? Patient states that provider put in an order for Bentyl 20 mg to split in half to make 10 mg. Patient reports that she has been unable to split these in half due to medication crumbling so she has been taking a whole pill (20 mg). Please review and advise, Desirae Case RN documented in this encounter [facility] 04-05-2022 Miscellaneous Notes Patient reports [facility] does not have anymore dicyclomine 10 mg caps, but they do have dicylomine 20 mg. Asking pcp to send Rx for the 20 mg tab. Pended. documented in this encounter [facility] 04-02-2022 Miscellaneous Notes Patient called and stated that she is unable to get in to see [facility] GI until Jun 2022. Asked if there was any other GI providers in the area and did suggest Dr. Quesada to patient. Patient would like to try to get in to see him. Referral and records faxed to Dr. Quesada's office at this time. documented in this encounter [facility] 03-30-2022 Instructions Jannet Mitchell MD - 03/30/2022 7:38 PM EST Okay to take Imodium up to 4 pills per day. If this is not enough despite adding Bentyl (dicyclomine), I might need to prescribe Lomotil. Okay to take Imodium or Bentyl in the AM to prevent accidents when need to leave home, and worry that might have flare up. Note that dose of Bentyl can be increased to 20 mg, but more potential side effects, like dry mouth. Try eating stuff with peanut butter, bananas, and tapioca. Consider GasX daily to help dissolve gas in bowel fluids --can take 4 times daily if needed to. Lactose can help with digesting milk products. Limit caffeine but do not go cold turkey. documented in this encounter [facility] 03-30-2022 History of Present illness Narrative This note was created using goodideazs. Subjective Harry Tran is a 81 year old female. Patient presents with: Follow Up SUBJECTIVE: Harry Tran is a 81 year old year old lady here today for follow up appointment for review of medical conditions. Has been feeling sick since last time saw her. Having diarrhea intermittently. Pills would stop diarrhea then after stopping pills, would get diarrhea again. Even took peptobismol. Fecal incontinence. Not able to sleep because of the pain and being sick to her stomach. Hard to swallow at night. Wants to see GI at [facility] since not getting better. 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; was reactive depression after the of her mom, not active Diverticulosis of colon (without mention of hemorrhage) Esophageal reflux on wellchol Herpes simplex Hot flash, menopausal has been premarin since menopause Internal hemorrhoids without mention of complication Mitral valve disorders(424.0) MVP Nausea alone Other specified circulatory system disorders raynauds Psoriasis 07/03/2009 Unspecified gastritis and gastroduodenitis on wellchol Current Outpatient Medications Medication Sig codeine-guaiFENesin (ROBITUSSIN AC) 10-100 mg/5 mL syrup Take 5-10 mL by mouth every 4 hours as needed for cough for up to 14 days. May cause drowsiness. albuterol HFA (PROVENTIL HFA, VENTOLIN HFA) 90 mcg/actuation inhaler Inhale 2 Puffs as instructed every 4 hours as needed for wheezing/shortness of breath. amoxicillin (AMOXIL) 875 mg tablet Take 1 tablet by mouth twice daily for 10 days. (Patient not taking: Reported on 03/30/2022) valACYclovir (VALTREX) 1 gram Take 1 tablet by mouth twice daily. clonazePAM (KLONOPIN) 0.5 mg tablet Take 2 tablets by mouth every morning AND 1 tablet daily at bedtime. Do all this for 30 days. As directed. gabapentin (NEURONTIN) 300 mg capsule Take 2 capsules by mouth daily at bedtime for 90 days. meloxicam (MOBIC) 15 mg tablet Take 1 tablet by mouth once daily. sucralfate (CARAFATE) 1 gram tablet Take 1 tablet by mouth before meals and at bedtime. omeprazole (PRILOSEC) 40 mg capsule Take 1 capsule by mouth once daily. diclofenac (VOLTAREN) 1 % topical gel Apply 2 g to affected area four times daily. As directed for ankle pain and swelling ondansetron (ZOFRAN) 4 mg tablet Take 1-2 tablets by mouth every 8 hours as needed for nausea/vomiting. valACYclovir (VALTREX) 1 gram Take 1 tablet by mouth once daily. traZODone (DESYREL) 50 mg tablet Take 1-2 tablets by mouth daily at bedtime. Cholecalciferol, Vitamin D3, 250 mcg (10,000 unit) cap DAILY dicyclomine (BENTYL) 10 mg capsule Take 1 capsule by mouth before meals and at bedtime. BABY ASPIRIN ORAL Take 1 capsule by mouth. polyethylene glycol 3350 (MIRALAX) 17 gram/dose powder Take 17 g by mouth once daily. albuterol (PROVENTIL) 2.5 mg /3 mL (0.083 %) nebulizer solution Use 3 mL via nebulizer twice daily. Inhale over 5-15 minutes MULTIVIT WITH CALCIUM,IRON,MIN (WOMEN'S DAILY MULTIVITAMIN ORAL) Take 2 tablets by mouth twice daily. No current facility-administered medications for this visit. Review of Systems Objective BP 142/82 Pulse 78 SpO2 98% Last 5 Encounter Wt Readings: Date: Wt: 03/22/2022 52.2 kg (115 lb) 11/03/2021 52.2 kg (115 lb) 10/17/2021 52.2 kg (115 lb) 10/14/2021 52.2 kg (115 lb) 08/28/2021 52.2 kg (115 lb) No waist measurement recorded Estimated body mass index is 18.85 kg/m as calculated from the following: Height as of 10/14/21: 166.4 cm (5' 5.5 ). Weight as of 03/22/22: 52.2 kg (115 lb). Last 5 Encounter BP Readings: Date: BP: 03/30/2022 142/82 03/22/2022 118/64 02/03/2022 122/72 12/21/2021 126/72 12/14/2021 108/64 Physical Exam Constitutional: Appearance: Normal appearance. She is normal weight. Eyes: Conjunctiva/sclera: Conjunctivae normal. Cardiovascular: Rate and Rhythm: Normal rate and regular rhythm. Pulmonary: Effort: Pulmonary effort is normal. Breath sounds: Normal breath sounds. Abdominal: General: Abdomen is flat. Bowel sounds are increased. There is no distension. Palpations: There is no fluid wave, hepatomegaly, splenomegaly, mass or pulsatile mass. Tenderness: There is abdominal tenderness. There is no rebound. Skin: General: Skin is warm and dry. Neurological: Mental Status: She is alert. Assessment and Plan Encounter Diagnosis ICD-10-CM 1. Diarrhea, unspecified type R19.7 CONSULT TO GASTROENTEROLOGY 2. Generalized abdominal pain R10.84 CONSULT TO GASTROENTEROLOGY 3. Irritable bowel syndrome with diarrhea K58.0 dicyclomine (BENTYL) 10 mg capsule CONSULT TO GASTROENTEROLOGY In the past was IBS with constipation. Now diarrhea 4. Lower abdominal pain R10.30 dicyclomine (BENTYL) 10 mg capsule HYDROcodone-acetaminophen (NORCO) 5-325 mg per tablet Sometimes pain in lower abdomen is the main issue 5. Nausea R11.0 CONSULT TO GASTROENTEROLOGY ondansetron (ZOFRAN) 4 mg tablet No vomiting 6. Nausea R11.0 CONSULT TO GASTROENTEROLOGY ondansetron (ZOFRAN) 4 mg tablet 7. Abdominal bloating R14.0 8. Anxiety F41.9 clonazePAM (KLONOPIN) 0.5 mg tablet 9. 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 Needs hydrocodone sometimes 11. Lower abdominal pain R10.30 dicyclomine (BENTYL) 10 mg capsule HYDROcodone-acetaminophen (NORCO) 5-325 mg per tablet recurrent 12. 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 Patient involved in shared decision making for management of medical issues. History and medications reviewed. Epic updated as needed Refills and/or prescriptions taken care of and meds adjusted as indicated after reviewed history, exam and labs. Health Maintenance reviewed. Updated record and/or ordered tests as recorded. Encouraged on efforts at healthy diet and regular exercise and adequate sleep. Jannet Mitchell MD documented in this encounter [facility] 03-24-2022 Miscellaneous Notes Left detailed message as to same. Looks like this patient has an upcoming appointment with Dr. Mitchell on 03/30, can we please let her know to discuss her diarrhea at that time if she is still having issues with this? Thank you! Pt calls to report she has been having trouble with diarrhea for the past couple of months. Pt reports she will have diarrhea all day and cannot say how many times she has it. Pt reports she will take 2-3 tabs of Imodium and that will keep her from having diarrhea for that day. Pt reports the 2nd day she might no have diarrhea but then the 3rd day she will have to take 2-3 tabs of Imodium again because she will have diarrhea constantly. Pt is asking what she needs to do. Did not want to schedule an appt until pcp reviewed message. Geraldine Otero LPN documented in this encounter [facility] 03-22-2022 History of Present illness Narrative CC: Patient presents with: cough and sore throat x 5 days HPI: Harry Tran is a 81 year old female who presents to the office with above complaint Symptoms began 5 days ago and include: Fever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 TRANSORAL DIAGNOSTIC 05/28/2008 EGD ESOPHAGOGASTRODUODENOSCOPY TRANSORAL DIAGNOSTIC 09/19/2012 EGD ESOPHAGOGASTRODUODENOSCOPY TRANSORAL DIAGNOSTIC 08/03/2013 EGD EXCISE;BARTHOLINS GLAND/CYST 07/16/2021 PAST SURGICAL HISTORY OF 05/23/1978 Left salpingo-oophorectomy; laparotomy PAST SURGICAL HISTORY OF 05/23/1979 excision right supacavicular lipoma PAST SURGICAL HISTORY OF Approx 1960 breast implants REMOVAL OF BREAST IMPLANT Bilateral 10/17/2015 TOTAL ABDOMINAL HYSTERECT W/WO RMVL TUBE OVARY age 29 Hysterectomy, MARIA ISABEL/USO Family History FAMILY HISTORY Problem Relation Age of Onset Alzheimer's Disease Mother Heart Father at age 57 Breast Cancer Maternal Grandmother Heart Paternal Grandfather Asthma No Family History COPD No Family History Emphysema No Family History Patient Allergies ALLERGIES Allergen Reactions Erythromycin GI Upset Nausea and vomiting Gabapentin Other: See Comments dizziness and weakness after one 300mg pill Keflex [Cephalexin] Diarrhea Diarrhea Macrobid [Nitrofura* Vomiting Mycins [Aminoglycos* Vomiting Omnicef [Cefdinir] Hives Bilateral arms and itching Penicillin G Rash Can tolerate amoxicillin but not augmentin Prednisone GI Upset states that made her sick in the past but does not know dose Sulfa (Sulfonamide * Vomiting Current Medications Current Outpatient Medications on File Prior to Visit Medication Sig doxycycline (VIBRA-TABS) 100 mg tablet Take 1 tablet by mouth twice daily for 10 days. sucralfate (CARAFATE) 1 gram tablet Take 1 tablet by mouth before meals and at bedtime. omeprazole (PRILOSEC) 40 mg capsule Take 1 capsule by mouth once daily. clonazePAM (KLONOPIN) 0.5 mg tablet Take 2 tablets by mouth every morning AND 1 tablet daily at bedtime. Do all this for 90 days. diclofenac (VOLTAREN) 1 % topical gel Apply 2 g to affected area four times daily. As directed for ankle pain and swelling ondansetron (ZOFRAN) 4 mg tablet Take 1-2 tablets by mouth every 8 hours as needed for nausea/vomiting. valACYclovir (VALTREX) 1 gram Take 1 tablet by mouth once daily. traZODone (DESYREL) 50 mg tablet Take 1-2 tablets by mouth daily at bedtime. albuterol HFA (PROVENTIL HFA, VENTOLIN HFA) 90 mcg/actuation inhaler Inhale 2 Puffs as instructed every 4 hours as needed for wheezing/shortness of breath. gabapentin (NEURONTIN) 300 mg capsule 1 capsule PO at bedtime Cholecalciferol, Vitamin D3, 250 mcg (10,000 unit) cap DAILY dicyclomine (BENTYL) 10 mg capsule Take 1 capsule by mouth before meals and at bedtime. BABY ASPIRIN ORAL Take 1 capsule by mouth. polyethylene glycol 3350 (MIRALAX) 17 gram/dose powder Take 17 g by mouth once daily. albuterol (PROVENTIL) 2.5 mg /3 mL (0.083 %) nebulizer solution Use 3 mL via nebulizer twice daily. Inhale over 5-15 minutes MULTIVIT WITH CALCIUM,IRON,MIN (WOMEN'S DAILY MULTIVITAMIN ORAL) Take 2 tablets by mouth twice daily. No current facility-administered medications on file prior to visit. Social History Social History Tobacco Use Smoking status: Former Smoker Types: Cigarettes Quit date: 05/23/1978 Years since quittin.5 Smokeless tobacco: Never Used Vaping Use Vaping Use: Never used Substance Use Topics Alcohol use: No Drug use: No Review of Symptoms REVIEW OF SYSTEMS See HPI EXAM: BP 108/64 Pulse 80 Resp 16 SpO2 97% General Appearance: Well appearing, alert, in no acute distress, well-hydrated, well nourished.. Skin: 2 cm x 1.3 cm wound on left lateral marmolejo with fat layer exposed. Positive for swelling, TTP, mild erythema which is receding. No purulent drainage or bleeding. Has 0.5-1 cm raised crusted lesion on left posterior calf which may be SCC. Health Maintenance List SHINGRIX VACCINE(1 of 2) Never done INFLUENZA(1) due on 01/21/2022 DIABETES SCREEN due on 10/24/2022 DTAP,TDAP,TD(3 - Td or Tdap) due on 01/02/2029 BONE DENSITY Completed SPIROMETRY Completed ADVANCE DIRECTIVE DISCUSSION Completed COVID-19 VACCINE Completed PNEUMOCOCCAL: 65+ Completed ASSESSMENT/PLAN: 1. Wound, open, leg, left, initial encounter - ICD9: 891.0, ICD10: S81.802A (primary diagnosis) Will refer to skin care team for further evaluation and treatment. Continue PO and topical abx and will follow up recommendations. Will recheck in 1 week if she is not able to get in to see wound care. Red flags for re-assessment reviewed with patient in detail. 2. Cellulitis of left lower extremity - ICD9: 682.6, ICD10: L03.116 Improving gradually. - Continue treatment with Doxycycline - No lymphangetic streaking, this was defined for patient to watch for and to seek medical care immediately if appears - Follow up for recheck in 1 week. - CONSULT TO SKIN CARE TEAM 3. Skin lesion - ICD9: 709.9, ICD10: L98.9 Possible SCC. Referral to dermatology for biopsy/excision. - CONSULT TO DERMATOLOGY Angelito Casiano MD documented in this encounter [facility] 11-20-2021 History of Present illness Narrative SUBJECTIVE: SHINGRIX VACCINE(1 of 2) Never done HPI Harry Tran is a 81 year old female. Past medical history significant for ACTIVE PROBLEM LIST Esophageal Reflux Sleep Related Leg Cramps Muscle Strain, RUQ Psoriasis Hot Flash, Menopausal Pancreatic Cyst Anxiety Levator Spasm Urinary Urgency Urge Incontinence Atrophic Vaginitis Irritable Bowel Syndrome With Diarrhea Asthma Herpes Simplex Disease Rls (Restless Legs Syndrome) Leg cramping, severe Vaginal Burning Lung Nodules Abnormal CT Scan of Lung Bronchiectasis With Acute Exacerbation (Hcc) Chronic Asthmatic Bronchitis (Hcc) Superior Mesenteric Artery Stenosis (Hcc) History of percutaneous angioplasty of SMA Presents today with report of right upper quadrant abdominal pain. Present about 1 month. Notes it seems to get worse over the course of the day. Maintaining oral intake. Heartburn: no Reflux: yes, occurring daily, taking prilosec 20 mg which seems to help somewhat Abdominal pain:RUQ Nausea: no Vomiting: no Diarrhea: loose stools 5/day intermittently Constipation: intermittent, alternates with loose stools BRBPR: no Black tarry: no She notes a groin procedure ~ 6 mos ago, can not recall what it was. Review of Systems Constitutional: Negative. Gastrointestinal: Positive for abdominal pain. Negative for abdominal distention, anal bleeding, blood in stool, nausea and vomiting. Objective BP 102/68 Pulse 76 Resp 16 Physical Exam Vitals and nursing note reviewed. Constitutional: Appearance: Normal appearance. HENT: Head: Normocephalic and atraumatic. Eyes: Conjunctiva/sclera: Conjunctivae normal. Cardiovascular: Rate and Rhythm: Normal rate and regular rhythm. Heart sounds: Normal heart sounds. Pulmonary: Effort: Pulmonary effort is normal. Breath sounds: Normal breath sounds. Abdominal: General: Bowel sounds are normal. Palpations: Abdomen is soft. Tenderness: There is abdominal tenderness (RUQ, epigastric). Musculoskeletal: Right lower leg: No edema. Left lower leg: No edema. Skin: General: Skin is warm and dry. Neurological: General: No focal deficit present. Mental Status: She is alert and oriented to person, place, and time. ALLERGIES Allergen Reactions Erythromycin GI Upset Nausea and vomiting Gabapentin Other: See Comments dizziness and weakness after one 300mg pill Keflex [Cephalexin] Diarrhea Diarrhea Macrobid [Nitrofura* Vomiting Mycins [Aminoglycos* Vomiting Omnicef [Cefdinir] Hives Bilateral arms and itching Penicillin G Rash Can tolerate amoxicillin but not augmentin Prednisone GI Upset states that made her sick in the past but does not know dose Sulfa (Sulfonamide * Vomiting clonazePAM (KLONOPIN) 0.5 mg tablet Take 2 tablets by mouth every morning AND 1 tablet daily at bedtime. Do all this for 90 days. diclofenac (VOLTAREN) 1 % topical gel Apply 2 g to affected area four times daily. As directed for ankle pain and swelling ondansetron (ZOFRAN) 4 mg tablet Take 1-2 tablets by mouth every 8 hours as needed for nausea/vomiting. valACYclovir (VALTREX) 1 gram Take 1 tablet by mouth once daily. traZODone (DESYREL) 50 mg tablet Take 1-2 tablets by mouth daily at bedtime. albuterol HFA (PROVENTIL HFA, VENTOLIN HFA) 90 mcg/actuation inhaler Inhale 2 Puffs as instructed every 4 hours as needed for wheezing/shortness of breath. gabapentin (NEURONTIN) 300 mg capsule 1 capsule PO at bedtime omeprazole (PRILOSEC) 20 mg capsule Take 1 capsule by mouth once daily. Cholecalciferol, Vitamin D3, 250 mcg (10,000 unit) cap DAILY dicyclomine (BENTYL) 10 mg capsule Take 1 capsule by mouth before meals and at bedtime. BABY ASPIRIN ORAL Take 1 capsule by mouth. polyethylene glycol 3350 (MIRALAX) 17 gram/dose powder Take 17 g by mouth once daily. MULTIVIT WITH CALCIUM,IRON,MIN (WOMEN'S DAILY MULTIVITAMIN ORAL) Take 2 tablets by mouth twice daily. albuterol (PROVENTIL) 2.5 mg /3 mL (0.083 %) nebulizer solution Use 3 mL via nebulizer twice daily. 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; was reactive depression after the of her mom, not active Diverticulosis of colon (without mention of hemorrhage) Esophageal reflux on [facility] Herpes simplex Hot flash, menopausal has been premarin since menopause Internal hemorrhoids without mention of complication Mitral valve disorders(424.0) MVP Nausea alone Other specified circulatory system disorders raynauds Psoriasis 07/03/2009 Unspecified gastritis and gastroduodenitis on [facility] Social History Tobacco Use Smoking status: Former Smoker Types: Cigarettes Quit date: 05/23/1978 Years since quittin.5 Smokeless tobacco: Never Used Vaping Use Vaping Use: Never used Substance Use Topics Alcohol use: No Drug use: No ASSESSMENT/PLAN: 1. RUQ pain - ICD9: 789.01, ICD10: R10.11 (primary diagnosis) 2. Gastroesophageal reflux disease, unspecified whether esophagitis present - ICD9: 530.81, ICD10: K21.9 History of cholecystectomy Complaints most consistent with exacerbation of GERD. We will treat with Carafate and increase her dose of omeprazole from 20 to 40 mg daily to see if this helps. Right upper quadrant ultrasound to further evaluate right upper quadrant pain. She will let us know if not feeling improved with these treatments EGD, colonoscopy Dr Glez [facility] 07/2020 - SUCRALFATE 1 GRAM TABLET - OMEPRAZOLE 40 MG CAPSULE,DELAYED RELEASE - US ABD RT UPPER QUADRANT Basilia Kellogg APRN.CNS Medical Decision Making: Problems: Moderate: 1+ chronic illnesses with change Data: Unique test(s) ordered: 1 Risk: Moderate: Drug management Medical Decision Making Level: 4 - Moderate documented in this encounter [facility] 11-18-2021 Miscellaneous Notes Patient needs evaluated for RUQ pain and decreased appetite to determine what diagnostics may be needed. Thank you Mariya Reyes APRN.JESSICA Patient asking if pcp would order an x-ray of RUQ. Reports she is having pain up under her right ribs and thinks it may have something to do with a procedure that was done years ago, when a provider in [place] went in that area with a balloon to separate something, maybe vessels, she cannot remember. Reports she had her gallbladder removed also. Reports she is eating- forces herself, and urinating normal color. Please advise patient. documented in this encounter [facility] 11-03-2021 History of Present illness Narrative This note was created using goodideazs. Subjective Harry Tran is a 81 year old female. Patient presents with: Follow Up SUBJECTIVE: Harry Tran is a 81 year old year old lady here today for 3 month follow up appointment for review of medical conditions. Doing good from respiratory standpoint. Still has stomach aches all the time Needed to take Imodium. Noted blood this time--new issue. Was having issues with constipation. Miralax daily daily Does not need Clonazepam 1 mg three times daily--hard to cut pill in half for HS dose. Needing pain med because of foot pain on right. Will see Dr. Medina for follow up on the lateral ankle pain. Really tender and bone is saba prominent. Hard to walk. States that needs to work now because her money not going as far. Still painful in vaginal area. 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; was reactive depression after the of her mom, not active Diverticulosis of colon (without mention of hemorrhage) Esophageal reflux on [facility] Herpes simplex Hot flash, menopausal has been premarin since menopause Internal hemorrhoids without mention of complication Mitral valve disorders(424.0) MVP Nausea alone Other specified circulatory system disorders raynauds Psoriasis 07/03/2009 Unspecified gastritis and gastroduodenitis on wellchol Current Outpatient Medications Medication Sig ondansetron (ZOFRAN) 4 mg tablet Take 1-2 tablets by mouth every 8 hours as needed for nausea/vomiting. valACYclovir (VALTREX) 1 gram Take 1 tablet by mouth once daily. traZODone (DESYREL) 50 mg tablet Take 1-2 tablets by mouth daily at bedtime. clonazePAM (KLONOPIN) 1 mg tablet Take 1 tablet by mouth three times daily as needed for up to 60 days. Do not start before August 08, 2021. albuterol HFA (PROVENTIL HFA, VENTOLIN HFA) 90 mcg/actuation inhaler Inhale 2 Puffs as instructed every 4 hours as needed for wheezing/shortness of breath. gabapentin (NEURONTIN) 300 mg capsule 1 capsule PO at bedtime omeprazole (PRILOSEC) 20 mg capsule Take 1 capsule by mouth once daily. Cholecalciferol, Vitamin D3, 250 mcg (10,000 unit) cap DAILY dicyclomine (BENTYL) 10 mg capsule Take 1 capsule by mouth before meals and at bedtime. BABY ASPIRIN ORAL Take 1 capsule by mouth. polyethylene glycol 3350 (MIRALAX) 17 gram/dose powder Take 17 g by mouth once daily. albuterol (PROVENTIL) 2.5 mg /3 mL (0.083 %) nebulizer solution Use 3 mL via nebulizer twice daily. Inhale over 5-15 minutes (Patient not taking: Reported on 10/14/2021 ) MULTIVIT WITH CALCIUM,IRON,MIN (WOMEN'S DAILY MULTIVITAMIN ORAL) Take 2 tablets by mouth twice daily. No current facility-administered medications for this visit. Review of Systems Objective BP 108/80 Pulse 71 Wt 52.2 kg (115 lb) SpO2 99% BMI 18.85 kg/m Last 5 Encounter Wt Readings: Date: Wt: 11/03/2021 52.2 kg (115 lb) 10/17/2021 52.2 kg (115 lb) 10/14/2021 52.2 kg (115 lb) 08/28/2021 52.2 kg (115 lb) 08/12/2021 51.7 kg (114 lb) No waist measurement recorded Estimated body mass index is 18.85 kg/m as calculated from the following: Height as of 10/14/21: 166.4 cm (5' 5.5 ). Weight as of this encounter: 52.2 kg (115 lb). Last 5 Encounter BP Readings: Date: BP: 11/03/2021 108/80 10/17/2021 110/62 08/28/2021 110/72 08/12/2021 100/68 07/31/2021 112/62 Physical Exam Constitutional: Appearance: Normal appearance. HENT: Head: Normocephalic. Eyes: Conjunctiva/sclera: Conjunctivae normal. Pulmonary: Effort: Pulmonary effort is normal. Breath sounds: Normal breath sounds. Skin: General: Skin is warm and dry. Neurological: General: No focal deficit present. Mental Status: She is alert and oriented to person, place, and time. Psychiatric: Mood and Affect: Mood normal. Behavior: Behavior normal. Thought Content: Thought content normal. Judgment: Judgment normal. Assessment and Plan ASSESSMENT/PLAN: 1. Chronic pain of right ankle - ICD9: 719.47, 338.29, ICD10: M25.571, G89.29 (primary diagnosis) Continue present management. - HYDROCODONE 5 MG-ACETAMINOPHEN 325 MG TABLET - DICLOFENAC 1 % TOPICAL GEL 2. Anxiety - ICD9: 300.00, ICD10: F41.9 Chronic issue. At this time benefits outweigh risks. Continue to monitor for adverse effects and indications for decreasing dose or tapering off. - CLONAZEPAM 0.5 MG TABLET 3. Psychophysiological insomnia - ICD9: 307.42, ICD10: F51.04 Stable with control. No signs of diversion or abuse of medication(s); no adverse effects. Continue present management. - CLONAZEPAM 0.5 MG TABLET 4. Lower abdominal pain - ICD9: 789.09, ICD10: R10.30 Chronic/recurrent pain. Complicated history. Work up in [place] as well as here in [place] and other specialists in [facility]. Continue present management. Further evaluation and treatment as indicated. - HYDROCODONE 5 MG-ACETAMINOPHEN 325 MG TABLET 5. Abscess of labia - ICD9: 616.4, ICD10: N76.4 - HYDROCODONE 5 MG-ACETAMINOPHEN 325 MG TABLET 6. 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 Vaginal pain - ICD9: 625.9, ICD10: R10.2 Follow up with [facility] as needed. Jannet Mitchell MD documented in this encounter [facility] 10-20-2021 Miscellaneous Notes Spoke to Dr. Mitchell, can offer alternative anti-viral, lower dosage to help limit nausea or provide anti nausea medication. States she has taken Zofran with no improvement. Did not like any suggestion given and demands to be seen. Per LDT, can do phone or virtual since rash has already been evaluated. Scheduled for phone appointment tonight, aware time will very limited. Pt called in and reports she is having a herpes flare up. She went to [facility] over the weekend, and they gave her Valacyclovir and Kenalog cream but Pt states they are not working. Pt reports she has two sores that are scabbing over, but there are more coming in and states that the area is blood red. Pt reports she cannot go another day without something. She said she had someone come to her house and after they left she had to lay down because she didn't feel well. She thinks the medication is making her nauseous. Pt was asking if there was any way the provider could fit her in tonight. documented in this encounter [facility] 10-18-2021 Miscellaneous Notes I called and discussed positive herpes testing. Continue Valtrex as prescribed and topical medicine as needed. Follow-up with PCP if needed. documented in this encounter [facility] 10-17-2021 Miscellaneous Notes Phone call placed, detailed message on patients identified voicemail (see prior provider encounter) Oliva Chester LPN Please let harry know her urine was normal. documented in this encounter [facility] 10-17-2021 Miscellaneous Notes Message left to pt with info. Cannot tell whether has yeast infection or cellulitis with abscess. With the boil, suspect the latter might be possible.. Should see [facility] if not resolving with trying topical antibiotic. Not sure if [facility] could treat this. Progress report Tuesday please The following approved medication requests have been transmitted electronically. Signed Prescriptions Disp Refills mupirocin (BACTROBAN) 2 % ointment 30 g 0 Sig: Apply to affected area three times daily for 10 days. Authorizing Provider: JANNET MITCHELL MD Pt called in and reports she has a vaginal rash that's red and matos all the time, also states there is what appears to be a boil the size of her thumb nail that is red and raised. She reports the boil does not have a white head on it and no red streaks going away from it. Pt reports she tried using Cortizone but it did not help. Pt asking if provider could send in a cream for her, as she already has an appointment set up with her on 11/03/21. I told her the provider may want to see her before prescribing anything for this in order to get the right medication. Please call and advise. documented in this encounter [facility] 09-25-2021 Miscellaneous Notes Info relayed to this pt to have Chelsea call for appt. She should call and make an appointment Jannet Mitchell MD is taking new patients Patient asking Dr. Mitchell if you would accept her niece as a new patient, Chelsea Ozuna. Reports Chelsea is in her early 20's, and was a friend of your daughter. 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 Please advise patient if agreeable. documented in this encounter [facility] 09-21-2021 Miscellaneous Notes Spoke with patient, unable to come in today but will call and schedule with Utility Repairer. Patient does have a history of bronchiectasis. If she is getting worse since last Tuesday and not able to come in at my flex time this afternoon to be evaluated, can treat empirically and follow up if not getting better. RX sent in case. 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 The following approved medication requests have been transmitted electronically. Signed Prescriptions Disp Refills ciprofloxacin HCl (CIPRO) 500 mg tablet 20 tablet 0 Sig: Take 1 tablet by mouth twice daily for 10 days. codeine-guaiFENesin (ROBITUSSIN AC) 10-100 mg/5 mL syrup 240 mL 0 Sig: Take 5-10 mL by mouth four times daily as needed for cough for up to 7 days. May cause drowsiness. PRIETO Class: C-V DEEJAY: No Jannet Mitchell MD Patient calls to report sore throat and dry non-productive cough since last Tuesday. Triage completed. Protocol recommends home care. Patient disagrees. Patient requesting a prescription for Cipro and Robitussin AC be sent to [facility]. Patient reports this needs to be done MANGO d/t history of asthma and bronchitis. Requesting prescriptions be sent to [facility]. Reason for Disposition Cough Answer Assessment - Initial Assessment Questions 1. ONSET: Cough that started last Tuesday 2. SEVERITY:Constant 3. SPUTUM: None. Cough sounds dry over the phone. 4. HEMOPTYSIS: No 5. DIFFICULTY BREATHING: No 6. FEVER: No 7. CARDIAC HISTORY: No 8. LUNG HISTORY: Asthma, Lung nodules, Chronic Asthmatic bronchitis 9. PE RISK FACTORS: No 10. OTHER SYMPTOMS: Sore throat. No runny nose, wheezing, or chest pain. 11. TRAVEL: No Protocols used: COUGH - ACUTE [id number] documented in this encounter [facility] 08-31-2021 Miscellaneous Notes Pt returned call and was given results and voiced understanding. Floridalma Salas LPN Left message for patient to call office. Nery Muhammad RN ----- Message from Carmen Mace APRN.CNP sent at 08/31/2021 8:22 AM EDT ----- Please let patient know that her BV/yeast and urine cultures was negative. Carmen Mace APRN.CNP documented in this encounter [facility] 08-28-2021 History of Present illness Narrative Harry Tran is a 81 year old female who presents for problem visit. HPI: New vaginal burning that started a few weeks ago. The burning is inside the vagina. No vulvar burning or pain. No vaginal discharge. She denies fevers, chills, N/V. Completed a course of antibiotics as prescribed by her PCP but states she did not take the Flagyl as she did not tolerate it. Occasional vaginal pain and pelvic pain as well. 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; was reactive depression after the of her mom, not active Diverticulosis of colon (without mention of hemorrhage) Esophageal reflux on wellchol Herpes simplex Hot flash, menopausal has been premarin since menopause Internal hemorrhoids without mention of complication Mitral valve disorders(424.0) MVP Nausea alone Other specified circulatory system disorders raynauds Psoriasis 07/03/2009 Unspecified gastritis and gastroduodenitis on wellchol PAST SURGICAL HISTORY Procedure Laterality Date APPENDECTOMY laparotomy CHOLECYSTECTOMY Cholecystectomy COLONOSCOPY FLX DX W/COLLJ SPEC WHEN PFRMD 05/26/2010 COLONOSCOPY GEN ANES 07/22/2020 EGD 07/22/2020 EGD 12/18/2014 EGD TRANSORAL BIOPSY SINGLE/MULTIPLE 08/26/2009 ESOPHAGOGASTRODUODENOSCOPY TRANSORAL DIAGNOSTIC 11/04/2000 EGD ESOPHAGOGASTRODUODENOSCOPY TRANSORAL DIAGNOSTIC 11/16/2004 EGD ESOPHAGOGASTRODUODENOSCOPY TRANSORAL DIAGNOSTIC 05/28/2008 EGD ESOPHAGOGASTRODUODENOSCOPY TRANSORAL DIAGNOSTIC 09/19/2012 EGD ESOPHAGOGASTRODUODENOSCOPY TRANSORAL DIAGNOSTIC 08/03/2013 EGD EXCISE;BARTHOLINS GLAND/CYST 07/16/2021 PAST SURGICAL HISTORY OF 05/23/1978 Left salpingo-oophorectomy; laparotomy PAST SURGICAL HISTORY OF 05/23/1979 excision right supacavicular lipoma PAST SURGICAL HISTORY OF Approx 1960 breast implants REMOVAL OF BREAST IMPLANT Bilateral 10/17/2015 TOTAL ABDOMINAL HYSTERECT W/WO RMVL TUBE OVARY age 29 Hysterectomy, MARIA ISABEL/USO FAMILY HISTORY Problem Relation Age of Onset Alzheimer's Disease Mother Heart Father at age 57 Breast Cancer Maternal Grandmother Heart Paternal Grandfather Asthma No Family History COPD No Family History Emphysema No Family History Social History Tobacco Use Smoking status: Former Smoker Types: Cigarettes Smokeless tobacco: Never Used Tobacco comment: Briefly in college, stopped in early 30s. Vaping Use Vaping Use: Never used Substance Use Topics Alcohol use: No Drug use: No Current Outpatient Medications Medication Sig clonazePAM (KLONOPIN) 1 mg tablet Take 1 tablet by mouth three times daily as needed for up to 60 days. Do not start before August 08, 2021. ondansetron (ZOFRAN) 4 mg tablet Take 1 tablet by mouth every 8 hours as needed for nausea/vomiting. albuterol HFA (PROVENTIL HFA, VENTOLIN HFA) 90 mcg/actuation inhaler Inhale 2 Puffs as instructed every 4 hours as needed for wheezing/shortness of breath. gabapentin (NEURONTIN) 300 mg capsule 1 capsule PO at bedtime omeprazole (PRILOSEC) 20 mg capsule Take 1 capsule by mouth once daily. Cholecalciferol, Vitamin D3, 250 mcg (10,000 unit) cap DAILY dicyclomine (BENTYL) 10 mg capsule Take 1 capsule by mouth before meals and at bedtime. BABY ASPIRIN ORAL Take 1 capsule by mouth. polyethylene glycol 3350 (MIRALAX) 17 gram/dose powder Take 17 g by mouth once daily. MULTIVIT WITH CALCIUM,IRON,MIN (WOMEN'S DAILY MULTIVITAMIN ORAL) Take 2 tablets by mouth twice daily. valACYclovir (VALTREX) 1 gram Take 1 tablet by mouth once daily. (Patient not taking: Reported on 07/06/2021 ) traZODone (DESYREL) 50 mg tablet Take 1-2 tablets by mouth daily at bedtime. albuterol (PROVENTIL) 2.5 mg /3 mL (0.083 %) nebulizer solution Use 3 mL via nebulizer twice daily. Inhale over 5-15 minutes (Patient not taking: Reported on 05/29/2021 ) No current facility-administered medications for this visit. Allergies As of Date: 08/28/2021 Allergen Noted Reaction ERYTHROMYCIN 01/19/2010 GI Upset GABAPENTIN 06/30/2015 Other: See Comments KEFLEX [CEPHALEXIN] 03/31/2021 Diarrhea MACROBID [NITROFURANTOIN MONOHYD/*06/13/2007 Vomiting MYCINS [AMINOGLYCOSIDES] 06/13/2007 Vomiting OMNICEF [CEFDINIR] 08/02/2014 Hives PENICILLIN G 11/05/2003 Rash PREDNISONE 02/04/2010 GI Upset SULFA (SULFONAMIDE ANTIBIOTICS) 06/13/2007 Vomiting Fully Assessed 08/28/2021 REVIEW OF SYSTEMS Expanded ROS: As above. Allergies and current medication updated:Yes EXAM: BP 110/72 Wt 115 lb (52.2kg) GENERAL: pleasant, female in no apparent distress CHEST: Normal inspiratory effort ABDOMEN: soft, non-tender and no masses PELVIC: external genitalia atrophic, normal Bartholin's glands, urethra, Hepburn's glands, no vulvar lesions, good vaginal support, physiologic discharge present, normal appearing perineal body and perianal region, excision well healed BIMANUAL: no adnexal masses and non-tender NEURO: exam grossly non-focal EXTREMITIES: normal ASSESSMENT AND PLAN: Encounter Diagnosis ICD-10-CM 1. Vaginal pain R10.2 BACT/PEDRO VAG GRAM STAIN URINE CULTURE URINALYSIS, WITH MICROSCOPIC 2. Vaginal burning N94.9 Unclear etiology. Screen for BV/yeast as she just completed antibiotics. Had pelvic US completed already. Some bladder tenderness on exam- check urine. Encouraged to follow up with PCP as well. Discussed follow up with Dr. Fay as well given chronic symptoms. Riddhi Ty DO Medical Decision Making: Problems: Low: Acute, uncomplicated illness or injury Data: Unique test(s) ordered: 3+ Risk: Low: Low risk from testing/treatment Medical Decision Making Level: 3 - Low documented in this encounter [facility] 08-13-2021 Miscellaneous Notes Called and left a detailed voicemail notifying patient of providers message. Hospital phone number was left in case patient had any questions. Janie Andre RN She states she has had pain in lower abdomen across lower abdomen. Noted tender LLQ when was examined by Dr. Ty. Reviewed with patient that she had diverticulosis noted on colonoscopy done by Dr. Glez. Patient states that does not want to go to ER because it seems like it takes 6 hours to be seen then they never figure out what is going on and send her home. Since at this point she is able to hold a conversation with me, she was able to drive to her ASSEMBLER [employer]EMENT appointment and back home again, and not red flag symptoms at this time, will treat empirically for possible diverticulitis. She cannot take Augmentin or omnicef. She will keep us posted. Also will go to ER if has severe pain as discussed since acute abdominal pain should not take 6 hours to be seen,etc. The following approved medication requests have been transmitted electronically. Signed Prescriptions Disp Refills metroNIDAZOLE (FLAGYL) 500 mg tablet 21 tablet 0 Sig: Take 1 tablet by mouth every 8 hours for 7 days. Authorizing Provider: JANNET MITCHELL ciprofloxacin HCl (CIPRO) 500 mg tablet 14 tablet 0 Sig: Take 1 tablet by mouth twice daily for 7 days. Authorizing Provider: JANNET MITCHELL MD Pt states she was dx'd with diverticulitis by Dr Ty, her ASSEM[employer]. 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 Pt states she is having significant pain. Denies fever, vomiting or problems with bowel movement. Pt uses [facility]. Please advise. Milena Faye LPN documented in this encounter [facility] 08-12-2021 Miscellaneous Notes Patient given message and voices understanding Left message for patient to call office. Nery Muhammad RN Please call pt and let her know I consulted with Dr. Mitchell given concern for diverticulitis. Recommend going to the ER if she has fevers, chills, severe pain, vomiting, not having BM's or passing flatus. Otherwise to contact her office later this week with an update regarding her symptoms. documented in this encounter [facility] 08-10-2021 Miscellaneous Notes Patient notified. Nery Muhammad RN Ok agree with pelvic US and appointment with me that day Patient calling c/o pelvic pain. She has had it since surgery intermittently, but now has been significantly worse. States it is both sides of pelvis. Movement makes it worse. Rating 8/10 on pain scale today. Has not taken any medication for it. Stated that she doesn't want to take any stronger pain pill and ibuprofen never helps. She has been using heating pad all morning. She did schedule pelvic u/s for 08/12/21 that was originally order 03/2021. Declines appointment for today because she doesn't feel she can make it in d/t the pain. Does not want to go to ER. Please advise. Nery Muhammad RN documented in this encounter [facility] 07-31-2021 History of Present illness Narrative This note was created using [employer]. Subjective Harry Tran is a 80 year old female. Patient presents with: F/U 3 Month SUBJECTIVE: Harry Tran is a 80 year old year old lady here today for 3 month follow up appointment for review of medical conditions. Had thrombosis after surgery for Bartholin gland cyst and still with pain. Reviewed [employer] post op note. Pain med does help though avoids using very often. Still has enough from 07/19 RX to last. Has LW and HCDPOA. Okay to use current contacts and agents but needs to update contact info since they have moved Gabapentin 300 mg helping with pain and sleep. Does have 100 mg pills also but not taking. Taking clonazepam twice daily. 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; was reactive depression after the of her mom, not active Diverticulosis of colon (without mention of hemorrhage) Esophageal reflux on wellchol Herpes simplex Hot flash, menopausal has been premarin since menopause Internal hemorrhoids without mention of complication Mitral valve disorders(424.0) MVP Nausea alone Other specified circulatory system disorders raynauds Psoriasis 07/03/2009 Unspecified gastritis and gastroduodenitis on wellchol Current Outpatient Medications Medication Sig HYDROcodone-acetaminophen (NORCO) 5-325 mg per tablet Take 1 tablet by mouth twice daily as needed for up to 15 days. clonazePAM (KLONOPIN) 1 mg tablet Take 1 tablet by mouth three times daily as needed for up to 30 days. ondansetron (ZOFRAN) 4 mg tablet Take 1 tablet by mouth every 8 hours as needed for nausea/vomiting. albuterol HFA (PROVENTIL HFA, VENTOLIN HFA) 90 mcg/actuation inhaler Inhale 2 Puffs as instructed every 4 hours as needed for wheezing/shortness of breath. gabapentin (NEURONTIN) 300 mg capsule 1 capsule PO at bedtime omeprazole (PRILOSEC) 20 mg capsule Take 1 capsule by mouth once daily. Cholecalciferol, Vitamin D3, 250 mcg (10,000 unit) cap DAILY dicyclomine (BENTYL) 10 mg capsule Take 1 capsule by mouth before meals and at bedtime. valACYclovir (VALTREX) 1 gram Take 1 tablet by mouth once daily. (Patient not taking: Reported on 07/06/2021 ) BABY ASPIRIN ORAL Take 1 capsule by mouth. traZODone (DESYREL) 50 mg tablet Take 1-2 tablets by mouth daily at bedtime. polyethylene glycol 3350 (MIRALAX) 17 gram/dose powder Take 17 g by mouth once daily. albuterol (PROVENTIL) 2.5 mg /3 mL (0.083 %) nebulizer solution Use 3 mL via nebulizer twice daily. Inhale over 5-15 minutes (Patient not taking: Reported on 05/29/2021 ) MULTIVIT WITH CALCIUM,IRON,MIN (WOMEN'S DAILY MULTIVITAMIN ORAL) Take 2 tablets by mouth twice daily. No current facility-administered medications for this visit. Review of Systems Objective BP 112/62 Pulse 62 Physical Exam Constitutional: Appearance: Normal appearance. HENT: Head: Normocephalic. Eyes: Conjunctiva/sclera: Conjunctivae normal. Cardiovascular: Rate and Rhythm: Normal rate and regular rhythm. Heart sounds: Normal heart sounds. Pulmonary: Effort: Pulmonary effort is normal. Breath sounds: Normal breath sounds. Skin: General: Skin is warm and dry. Neurological: General: No focal deficit present. Mental Status: She is alert and oriented to person, place, and time. Psychiatric: Mood and Affect: Mood normal. Behavior: Behavior normal. Thought Content: Thought content normal. Judgment: Judgment normal. Has to stand up periodically to help with pain. Assessment and Plan Encounter Diagnosis ICD-10-CM 1. Anxiety F41.9 clonazePAM (KLONOPIN) 1 mg tablet 2. Psychophysiological insomnia F51.04 clonazePAM (KLONOPIN) 1 mg tablet 3. Vulvar hematoma N90.89 post op--pain gradually improving but still there ASSESSMENT/PLAN: 1. Anxiety - ICD9: 300.00, ICD10: F41.9 (primary diagnosis) Overall stable with current meds. Helps her stay functional despite stressors. Continue present management. - CLONAZEPAM 1 MG TABLET 2. Psychophysiological insomnia - ICD9: 307.42, ICD10: F51.04 As noted above. Clonazepam helps with sleep Gabapentin helps. Continue present management. 3. Vulvar hematoma - ICD9: 624.5, ICD10: N90.89 Pain slowly improving since surgery. Rarely takes pain med. I spent a total of at least 31 minutes on the date of the service which included [id number] patient care, completing clinical documentation, obtaining and/or reviewing separately obtained history, performing a medically appropriate examination, counseling and educating the patient/family/caregiver and ordering medications, tests, or procedures. Jannet Mitchell MD documented in this encounter [facility] documented as of this encounter (statuses as of 06/19/2023) [facility] History of Past illness Narrative* Problem Noted Date Diagnosed Date Resolved Date Bronchiectasis with acute exacerbation 09/11/2019 05/24/2023 Nausea alone 08/26/2009 11/12/2013 Nausea 05/29/2009 11/12/2013 Abdominal pain, epigastric 05/28/2008 0 11/12/2013 ACUTE GASTRITIS W/O HEMORRHAGE 05/28/2008 02/22/2015 Unspecified gastritis and gastroduodenitis 03/25/2005 02/22/2015 Other plastic surgery for un acceptable cosmetic appearance 02/14/2004 02/22/2015 Nausea & vomiting 11/12/2013 documented as of this encounter (statuses as of 07/20/2023) [facility] History of Past illness Narrative* Problem Noted Date Diagnosed Date Resolved Date Bronchiectasis with acute exacerbation 09/11/2019 05/24/2023 Nausea alone 08/26/2009 11/12/2013 Nausea 05/29/2009 11/12/2013 Abdominal pain, epigastric 05/28/2008 0 11/12/2013 ACUTE GASTRITIS W/O HEMORRHAGE 05/28/2008 02/22/2015 Unspecified gastritis and gastroduodenitis 03/25/2005 02/22/2015 Other plastic surgery for un acceptable cosmetic appearance 02/14/2004 02/22/2015 Nausea & vomiting 11/12/2013 documented as of this encounter (statuses as of 07/23/2023) [facility] History of Past illness Narrative* Problem Noted Date Diagnosed Date Resolved Date Bronchiectasis with acute exacerbation 09/11/2019 05/24/2023 Nausea alone 08/26/2009 11/12/2013 Nausea 05/29/2009 11/12/2013 Abdominal pain, epigastric 05/28/2008 0 11/12/2013 ACUTE GASTRITIS W/O HEMORRHAGE 05/28/2008 02/22/2015 Unspecified gastritis and gastroduodenitis 03/25/2005 02/22/2015 Other plastic surgery for un acceptable cosmetic appearance 02/14/2004 02/22/2015 Nausea & vomiting 11/12/2013 documented as of this encounter (statuses as of 07/25/2023) [facility] History of Past illness Narrative* Problem Noted Date Diagnosed Date Resolved Date Bronchiectasis with acute exacerbation 09/11/2019 05/24/2023 Nausea alone 08/26/2009 11/12/2013 Nausea 05/29/2009 11/12/2013 Abdominal pain, epigastric 05/28/2008 0 11/12/2013 ACUTE GASTRITIS W/O HEMORRHAGE 05/28/2008 02/22/2015 Unspecified gastritis and gastroduodenitis 03/25/2005 02/22/2015 Other plastic surgery for un acceptable cosmetic appearance 02/14/2004 02/22/2015 Nausea & vomiting 11/12/2013 documented as of this encounter (statuses as of 07/28/2023) [facility] History of Past illness Narrative* Problem Noted Date Diagnosed Date Resolved Date Bronchiectasis with acute exacerbation 09/11/2019 05/24/2023 Nausea alone 08/26/2009 11/12/2013 Nausea 05/29/2009 11/12/2013 Abdominal pain, epigastric 05/28/2008 0 11/12/2013 ACUTE GASTRITIS W/O HEMORRHAGE 05/28/2008 02/22/2015 Unspecified gastritis and gastroduodenitis 03/25/2005 02/22/2015 Other plastic surgery for un acceptable cosmetic appearance 02/14/2004 02/22/2015 Nausea & vomiting 11/12/2013 documented as of this encounter (statuses as of 07/29/2023) [facility] History of Past illness Narrative* Problem Noted Date Resolved Date Nausea alone 08/26/2009 11/12/2013 Nausea 05/29/2009 11/12/2013 Abdominal pain, epigastric 05/28/200811/12 ACUTE GASTRITIS W/O HEMORRHAGE 05/28/2008 1 Unspecified gastritis and gastroduodenitis 03/2502/22/2015 Other plastic surgery for unacceptable cosmetic appearance 02/14/2004 02/22/2015 Nausea & vomiting 11/12/2013 documented as of this encounter (statuses as of 08/10/2021) [facility] History of Past illness Narrative* Problem Noted Date Resolved Date Nausea alone 08/26/2009 11/12/2013 Nausea 05/29/2009 11/12/2013 Abdominal pain, epigastric 05/28/200811/12 ACUTE GASTRITIS W/O HEMORRHAGE 05/28/2008 1 Unspecified gastritis and gastroduodenitis 03/2502/22/2015 Other plastic surgery for unacceptable cosmetic appearance 02/14/2004 02/22/2015 Nausea & vomiting 11/12/2013 documented as of this encounter (statuses as of 08/12/2021) [facility] History of Past illness Narrative* Problem Noted Date Resolved Date Nausea alone 08/26/2009 11/12/2013 Nausea 05/29/2009 11/12/2013 Abdominal pain, epigastric 05/28/200811/12 ACUTE GASTRITIS W/O HEMORRHAGE 05/28/2008 1 Unspecified gastritis and gastroduodenitis 03/2502/22/2015 Other plastic surgery for unacceptable cosmetic appearance 02/14/2004 02/22/2015 Nausea & vomiting 11/12/2013 documented as of this encounter (statuses as of 08/12/2021) [facility] History of Past illness Narrative* Problem Noted Date Resolved Date Nausea alone 08/26/2009 11/12/2013 Nausea 05/29/2009 11/12/2013 Abdominal pain, epigastric 05/28/200811/12 ACUTE GASTRITIS W/O HEMORRHAGE 05/28/2008 1 Unspecified gastritis and gastroduodenitis 03/2502/22/2015 Other plastic surgery for unacceptable cosmetic appearance 02/14/2004 02/22/2015 Nausea & vomiting 11/12/2013 documented as of this encounter (statuses as of 08/12/2021) [facility] History of Past illness Narrative* Problem Noted Date Resolved Date Nausea alone 08/26/2009 11/12/2013 Nausea 05/29/2009 11/12/2013 Abdominal pain, epigastric 05/28/200811/12 ACUTE GASTRITIS W/O HEMORRHAGE 05/28/2008 1 Unspecified gastritis and gastroduodenitis 03/2502/22/2015 Other plastic surgery for unacceptable cosmetic appearance 02/14/2004 02/22/2015 Nausea & vomiting 11/12/2013 documented as of this encounter (statuses as of 08/13/2021) [facility] History of Past illness Narrative* Problem Noted Date Resolved Date Nausea alone 08/26/2009 11/12/2013 Nausea 05/29/2009 11/12/2013 Abdominal pain, epigastric 05/28/200811/12 ACUTE GASTRITIS W/O HEMORRHAGE 05/28/2008 1 Unspecified gastritis and gastroduodenitis 03/2502/22/2015 Other plastic surgery for unacceptable cosmetic appearance 02/14/2004 02/22/2015 Nausea & vomiting 11/12/2013 documented as of this encounter (statuses as of 08/26/2021) [facility] History of Past illness Narrative* Problem Noted Date Resolved Date Nausea alone 08/26/2009 11/12/2013 Nausea 05/29/2009 11/12/2013 Abdominal pain, epigastric 05/28/200811/12 ACUTE GASTRITIS W/O HEMORRHAGE 05/28/2008 1 Unspecified gastritis and gastroduodenitis 03/2502/22/2015 Other plastic surgery for unacceptable cosmetic appearance 02/14/2004 02/22/2015 Nausea & vomiting 11/12/2013 documented as of this encounter (statuses as of 08/28/2021) [facility] [facility] of Past illness Narrative* Problem Noted Date Resolved Date Nausea alone 08/26/2009 11/12/2013 Nausea 05/29/2009 11/12/2013 Abdominal pain, epigastric 05/28/200811/12 ACUTE GASTRITIS W/O HEMORRHAGE 05/28/2008 1 Unspecified gastritis and gastroduodenitis 03/2502/22/2015 Other plastic surgery for unacceptable cosmetic appearance 02/14/2004 02/22/2015 Nausea & vomiting 11/12/2013 documented as of this encounter (statuses as of 08/31/2021) [facility]04-06[facility]2010 History of Past illness Narrative* Problem Noted Date Resolved Date Nausea alone 08/26/2009 11/12/2013 Nausea 05/29/2009 11/12/2013 Abdominal pain, epigastric 05/28/200811/12 ACUTE GASTRITIS W/O HEMORRHAGE 05/28/2008 1 Unspecified gastritis and gastroduodenitis 03/2502/22/2015 Other plastic surgery for unacceptable cosmetic appearance 02/14/2004 02/22/2015 Nausea & vomiting 11/12/2013 documented as of this encounter (statuses as of 09/21/2021) [facility]04-[facility]2010 History of Past illness Narrative* Problem Noted Date Resolved Date Nausea alone 08/26/2009 11/12/2013 Nausea 05/29/2009 11/12/2013 Abdominal pain, epigastric 05/28/200811/12 ACUTE GASTRITIS W/O HEMORRHAGE 05/28/2008 1 Unspecified gastritis and gastroduodenitis 03/2502/22/2015 Other plastic surgery for unacceptable cosmetic appearance 02/14/2004 02/22/2015 Nausea & vomiting 11/12/2013 documented as of this encounter (statuses as of 09/25/2021) [facility]04[facility]2010 History of Past illness Narrative* Problem Noted Date Resolved Date Nausea alone 08/26/2009 11/12/2013 Nausea 05/29/2009 11/12/2013 Abdominal pain, epigastric 05/28/200811/12 ACUTE GASTRITIS W/O HEMORRHAGE 05/28/2008 1 Unspecified gastritis and gastroduodenitis 03/2502/22/2015 Other plastic surgery for unacceptable cosmetic appearance 02/14/2004 02/22/2015 Nausea & vomiting 11/12/2013 documented as of this encounter (statuses as of 10/17/2021) [facility]04[facility]2010 History of Past illness Narrative* Problem Noted Date Resolved Date Nausea alone 08/26/2009 11/12/2013 Nausea 05/29/2009 11/12/2013 Abdominal pain, epigastric 05/28/200811/12 ACUTE GASTRITIS W/O HEMORRHAGE 05/28/2008 1 Unspecified gastritis and gastroduodenitis 03/2502/22/2015 Other plastic surgery for unacceptable cosmetic appearance 02/14/2004 02/22/2015 Nausea & vomiting 11/12/2013 documented as of this encounter (statuses as of 10/18/2021) [facility]04-[facility]2010 History of Past illness Narrative* Problem Noted Date Resolved Date Nausea alone 08/26/2009 11/12/2013 Nausea 05/29/2009 11/12/2013 Abdominal pain, epigastric 05/28/200811/12 ACUTE GASTRITIS W/O HEMORRHAGE 05/28/2008 1 Unspecified gastritis and gastroduodenitis 03/2502/22/2015 Other plastic surgery for unacceptable cosmetic appearance 02/14/2004 02/22/2015 Nausea & vomiting 11/12/2013 documented as of this encounter (statuses as of 10/20/2021) [facility]04[facility] History of Past illness Narrative* Problem Noted Date Resolved Date Nausea alone 08/26/2009 11/12/2013 Nausea 05/29/2009 11/12/2013 Abdominal pain, epigastric 05/28/200811/12 ACUTE GASTRITIS W/O HEMORRHAGE 05/28/2008 1 Unspecified gastritis and gastroduodenitis 03/2502/22/2015 Other plastic surgery for unacceptable cosmetic appearance 02/14/2004 02/22/2015 Nausea & vomiting 11/12/2013 documented as of this encounter (statuses as of 11/20/2021) [place] [address]-06-2010 History of Past illness Narrative* Problem Noted Date Resolved Date Nausea alone 08/26/2009 11/12/2013 Nausea 05/29/2009 11/12/2013 Abdominal pain, epigastric 05/28/200811/12 ACUTE GASTRITIS W/O HEMORRHAGE 05/28/2008 1 Unspecified gastritis and gastroduodenitis 03/2502/22/2015 Other plastic surgery for unacceptable cosmetic appearance 02/14/2004 02/22/2015 Nausea & vomiting 11/12/2013 documented as of this encounter (statuses as of 12/15/2021) [facility] History of Past illness Narrative* Problem Noted Date Resolved Date Nausea alone 08/26/2009 11/12/2013 Nausea 05/29/2009 11/12/2013 Abdominal pain, epigastric 05/28/200811/12 ACUTE GASTRITIS W/O HEMORRHAGE 05/28/2008 1 Unspecified gastritis and gastroduodenitis 03/2502/22/2015 Other plastic surgery for unacceptable cosmetic appearance 02/14/2004 02/22/2015 Nausea & vomiting 11/12/2013 documented as of this encounter (statuses as of 12/15/2021) [facility] History of Past illness Narrative* Problem Noted Date Resolved Date Nausea alone 08/26/2009 11/12/2013 Nausea 05/29/2009 11/12/2013 Abdominal pain, epigastric 05/28/200811/12 ACUTE GASTRITIS W/O HEMORRHAGE 05/28/2008 1 Unspecified gastritis and gastroduodenitis 03/2502/22/2015 Other plastic surgery for unacceptable cosmetic appearance 02/14/2004 02/22/2015 Nausea & vomiting 11/12/2013 documented as of this encounter (statuses as of 12/21/2021) [facility]04[facility]2010 History of Past illness Narrative* Problem Noted Date Resolved Date Nausea alone 08/26/2009 11/12/2013 Nausea 05/29/2009 11/12/2013 Abdominal pain, epigastric 05/28/200811/12 ACUTE GASTRITIS W/O HEMORRHAGE 05/28/2008 1 Unspecified gastritis and gastroduodenitis 03/2502/22/2015 Other plastic surgery for unacceptable cosmetic appearance 02/14/2004 02/22/2015 Nausea & vomiting 11/12/2013 documented as of this encounter (statuses as of 12/21/2021) [facility]2010 History of Past illness Narrative* Problem Noted Date Resolved Date Nausea alone 08/26/2009 11/12/2013 Nausea 05/29/2009 11/12/2013 Abdominal pain, epigastric 05/28/200811/12 ACUTE GASTRITIS W/O HEMORRHAGE 05/28/2008 1 Unspecified gastritis and gastroduodenitis 03/2502/22/2015 Other plastic surgery for unacceptable cosmetic appearance 02/14/2004 02/22/2015 Nausea & vomiting 11/12/2013 documented as of this encounter (statuses as of 12/26/2021) [facility]04[facility]2010 History of Past illness Narrative* Problem Noted Date Resolved Date Nausea alone 08/26/2009 11/12/2013 Nausea 05/29/2009 11/12/2013 Abdominal pain, epigastric 05/28/200811/12 ACUTE GASTRITIS W/O HEMORRHAGE 05/28/2008 1 Unspecified gastritis and gastroduodenitis 03/2502/22/2015 Other plastic surgery for unacceptable cosmetic appearance 02/14/2004 02/22/2015 Nausea & vomiting 11/12/2013 documented as of this encounter (statuses as of 12/26/2021) [facility]04[facility]2010 History of Past illness Narrative* Problem Noted Date Resolved Date Nausea alone 08/26/2009 11/12/2013 Nausea 05/29/2009 11/12/2013 Abdominal pain, epigastric 05/28/200811/12 ACUTE GASTRITIS W/O HEMORRHAGE 05/28/2008 1 Unspecified gastritis and gastroduodenitis 03/2502/22/2015 Other plastic surgery for unacceptable cosmetic appearance 02/14/2004 02/22/2015 Nausea & vomiting 11/12/2013 documented as of this encounter (statuses as of 12/29/2021) [facility]04[facility] History of Past illness Narrative* Problem Noted Date Resolved Date Nausea alone 08/26/2009 11/12/2013 Nausea 05/29/2009 11/12/2013 Abdominal pain, epigastric 05/28/200811/12 ACUTE GASTRITIS W/O HEMORRHAGE 05/28/2008 1 Unspecified gastritis and gastroduodenitis 03/2502/22/2015 Other plastic surgery for unacceptable cosmetic appearance 02/14/2004 02/22/2015 Nausea & vomiting 11/12/2013 documented as of this encounter (statuses as of 12/31/2021) [facility]04[facility]2010 History of Past illness Narrative* Problem Noted Date Resolved Date Nausea alone 08/26/2009 11/12/2013 Nausea 05/29/2009 11/12/2013 Abdominal pain, epigastric 05/28/200811/12 ACUTE GASTRITIS W/O HEMORRHAGE 05/28/2008 1 Unspecified gastritis and gastroduodenitis 03/2502/22/2015 Other plastic surgery for unacceptable cosmetic appearance 02/14/2004 02/22/2015 Nausea & vomiting 11/12/2013 documented as of this encounter (statuses as of 01/27/2022) [facility]04[facility]2010 History of Past illness Narrative* Problem Noted Date Resolved Date Nausea alone 08/26/2009 11/12/2013 Nausea 05/29/2009 11/12/2013 Abdominal pain, epigastric 05/28/200811/12 ACUTE GASTRITIS W/O HEMORRHAGE 05/28/2008 1 Unspecified gastritis and gastroduodenitis 03/2502/22/2015 Other plastic surgery for unacceptable cosmetic appearance 02/14/2004 02/22/2015 Nausea & vomiting 11/12/2013 documented as of this encounter (statuses as of 01/30/2022) [facility] History of Past illness Narrative* Problem Noted Date Resolved Date Nausea alone 08/26/2009 11/12/2013 Nausea 05/29/2009 11/12/2013 Abdominal pain, epigastric 05/28/200811/12 ACUTE GASTRITIS W/O HEMORRHAGE 05/28/2008 1 Unspecified gastritis and gastroduodenitis 03/2502/22/2015 Other plastic surgery for unacceptable cosmetic appearance 02/14/2004 02/22/2015 Nausea & vomiting 11/12/2013 documented as of this encounter (statuses as of 02/09/2022) [facility] History of Past illness Narrative* Problem Noted Date Resolved Date Nausea alone 08/26/2009 11/12/2013 Nausea 05/29/2009 11/12/2013 Abdominal pain, epigastric 05/28/200811/12 ACUTE GASTRITIS W/O HEMORRHAGE 05/28/2008 1 Unspecified gastritis and gastroduodenitis 03/2502/22/2015 Other plastic surgery for unacceptable cosmetic appearance 02/14/2004 02/22/2015 Nausea & vomiting 11/12/2013 documented as of this encounter (statuses as of 02/18/2022) [facility] History of Past illness Narrative* Problem Noted Date Resolved Date Nausea alone 08/26/2009 11/12/2013 Nausea 05/29/2009 11/12/2013 Abdominal pain, epigastric 05/28/200811/12 ACUTE GASTRITIS W/O HEMORRHAGE 05/28/2008 1 Unspecified gastritis and gastroduodenitis 03/2502/22/2015 Other plastic surgery for unacceptable cosmetic appearance 02/14/2004 02/22/2015 Nausea & vomiting 11/12/2013 documented as of this encounter (statuses as of 02/24/2022) [facility]2010 History of Past illness Narrative* Problem Noted Date Resolved Date Nausea alone 08/26/2009 11/12/2013 Nausea 05/29/2009 11/12/2013 Abdominal pain, epigastric 05/28/200811/12 ACUTE GASTRITIS W/O HEMORRHAGE 05/28/2008 1 Unspecified gastritis and gastroduodenitis 03/2502/22/2015 Other plastic surgery for unacceptable cosmetic appearance 02/14/2004 02/22/2015 Nausea & vomiting 11/12/2013 documented as of this encounter (statuses as of 03/18/2022) [facility] History of Past illness Narrative* Problem Noted Date Resolved Date Nausea alone 08/26/2009 11/12/2013 Nausea 05/29/2009 11/12/2013 Abdominal pain, epigastric 05/28/200811/12 ACUTE GASTRITIS W/O HEMORRHAGE 05/28/2008 1 Unspecified gastritis and gastroduodenitis 03/2502/22/2015 Other plastic surgery for unacceptable cosmetic appearance 02/14/2004 02/22/2015 Nausea & vomiting 11/12/2013 documented as of this encounter (statuses as of 03/22/2022) [facility]04[facility]2010 History of Past illness Narrative* Problem Noted Date Resolved Date Nausea alone 08/26/2009 11/12/2013 Nausea 05/29/2009 11/12/2013 Abdominal pain, epigastric 05/28/200811/12 ACUTE GASTRITIS W/O HEMORRHAGE 05/28/2008 1 Unspecified gastritis and gastroduodenitis 03/2502/22/2015 Other plastic surgery for unacceptable cosmetic appearance 02/14/2004 02/22/2015 Nausea & vomiting 11/12/2013 documented as of this encounter (statuses as of 03/24/2022) [facility]2010 History of Past illness Narrative* Problem Noted Date Resolved Date Nausea alone 08/26/2009 11/12/2013 Nausea 05/29/2009 11/12/2013 Abdominal pain, epigastric 05/28/200811/12 ACUTE GASTRITIS W/O HEMORRHAGE 05/28/2008 1 Unspecified gastritis and gastroduodenitis 03/2502/22/2015 Other plastic surgery for unacceptable cosmetic appearance 02/14/2004 02/22/2015 Nausea & vomiting 11/12/2013 documented as of this encounter (statuses as of 03/31/2022) [facility] History of Past illness Narrative* Problem Noted Date Resolved Date Nausea alone 08/26/2009 11/12/2013 Nausea 05/29/2009 11/12/2013 Abdominal pain, epigastric 05/28/200811/12 ACUTE GASTRITIS W/O HEMORRHAGE 05/28/2008 1 Unspecified gastritis and gastroduodenitis 03/2502/22/2015 Other plastic surgery for unacceptable cosmetic appearance 02/14/2004 02/22/2015 Nausea & vomiting 11/12/2013 documented as of this encounter (statuses as of 04/02/2022) [facility] History of Past illness Narrative* Problem Noted Date Resolved Date Nausea alone 08/26/2009 11/12/2013 Nausea 05/29/2009 11/12/2013 Abdominal pain, epigastric 05/28/200811/12 ACUTE GASTRITIS W/O HEMORRHAGE 05/28/2008 1 Unspecified gastritis and gastroduodenitis 03/2502/22/2015 Other plastic surgery for unacceptable cosmetic appearance 02/14/2004 02/22/2015 Nausea & vomiting 11/12/2013 documented as of this encounter (statuses as of 04/06/2022) [facility] History of Past illness Narrative* Problem Noted Date Resolved Date Nausea alone 08/26/2009 11/12/2013 Nausea 05/29/2009 11/12/2013 Abdominal pain, epigastric 05/28/200811/12 ACUTE GASTRITIS W/O HEMORRHAGE 05/28/2008 1 Unspecified gastritis and gastroduodenitis 03/2502/22/2015 Other plastic surgery for unacceptable cosmetic appearance 02/14/2004 02/22/2015 Nausea & vomiting 11/12/2013 documented as of this encounter (statuses as of 04/14/2022) [facility] History of Past illness Narrative* Problem Noted Date Resolved Date Nausea alone 08/26/2009 11/12/2013 Nausea 05/29/2009 11/12/2013 Abdominal pain, epigastric 05/28/200811/12 ACUTE GASTRITIS W/O HEMORRHAGE 05/28/2008 1 Unspecified gastritis and gastroduodenitis 03/2502/22/2015 Other plastic surgery for unacceptable cosmetic appearance 02/14/2004 02/22/2015 Nausea & vomiting 11/12/2013 documented as of this encounter (statuses as of 04/22/2022) [facility] History of Past illness Narrative* Problem Noted Date Resolved Date Nausea alone 08/26/2009 11/12/2013 Nausea 05/29/2009 11/12/2013 Abdominal pain, epigastric 05/28/200811/12 ACUTE GASTRITIS W/O HEMORRHAGE 05/28/2008 1 Unspecified gastritis and gastroduodenitis 03/2502/22/2015 Other plastic surgery for unacceptable cosmetic appearance 02/14/2004 02/22/2015 Nausea & vomiting 11/12/2013 documented as of this encounter (statuses as of 04/23/2022) [facility] History of Past illness Narrative* Problem Noted Date Resolved Date Nausea alone 08/26/2009 11/12/2013 Nausea 05/29/2009 11/12/2013 Abdominal pain, epigastric 05/28/200811/12 ACUTE GASTRITIS W/O HEMORRHAGE 05/28/2008 1 Unspecified gastritis and gastroduodenitis 03/2502/22/2015 Other plastic surgery for unacceptable cosmetic appearance 02/14/2004 02/22/2015 Nausea & vomiting 11/12/2013 documented as of this encounter (statuses as of 05/26/2022) [facility] History of Past illness Narrative* Problem Noted Date Resolved Date Nausea alone 08/26/2009 11/12/2013 Nausea 05/29/2009 11/12/2013 Abdominal pain, epigastric 05/28/200811/12 ACUTE GASTRITIS W/O HEMORRHAGE 05/28/2008 1 Unspecified gastritis and gastroduodenitis 03/2502/22/2015 Other plastic surgery for unacceptable cosmetic appearance 02/14/2004 02/22/2015 Nausea & vomiting 11/12/2013 documented as of this encounter (statuses as of 06/01/2022) [facility] History of Past illness Narrative* Problem Noted Date Resolved Date Nausea alone 08/26/2009 11/12/2013 Nausea 05/29/2009 11/12/2013 Abdominal pain, epigastric 05/28/200811/12 ACUTE GASTRITIS W/O HEMORRHAGE 05/28/2008 1 Unspecified gastritis and gastroduodenitis 03/2502/22/2015 Other plastic surgery for unacceptable cosmetic appearance 02/14/2004 02/22/2015 Nausea & vomiting 11/12/2013 documented as of this encounter (statuses as of 06/02/2022) [facility] History of Past illness Narrative* Problem Noted Date Resolved Date Nausea alone 08/26/2009 11/12/2013 Nausea 05/29/2009 11/12/2013 Abdominal pain, epigastric 05/28/200811/12 ACUTE GASTRITIS W/O HEMORRHAGE 05/28/2008 1 Unspecified gastritis and gastroduodenitis 03/2502/22/2015 Other plastic surgery for unacceptable cosmetic appearance 02/14/2004 02/22/2015 Nausea & vomiting 11/12/2013 documented as of this encounter (statuses as of 06/19/2022) [facility] History of Past illness Narrative* Problem Noted Date Resolved Date Nausea alone 08/26/2009 11/12/2013 Nausea 05/29/2009 11/12/2013 Abdominal pain, epigastric 05/28/200811/12 ACUTE GASTRITIS W/O HEMORRHAGE 05/28/2008 1 Unspecified gastritis and gastroduodenitis 03/2502/22/2015 Other plastic surgery for unacceptable cosmetic appearance 02/14/2004 02/22/2015 Nausea & vomiting 11/12/2013 documented as of this encounter (statuses as of 06/20/2022) [facility] History of Past illness Narrative* Problem Noted Date Resolved Date Nausea alone 08/26/2009 11/12/2013 Nausea 05/29/2009 11/12/2013 Abdominal pain, epigastric 05/28/200811/12 ACUTE GASTRITIS W/O HEMORRHAGE 05/28/2008 1 Unspecified gastritis and gastroduodenitis 03/2502/22/2015 Other plastic surgery for unacceptable cosmetic appearance 02/14/2004 02/22/2015 Nausea & vomiting 11/12/2013 documented as of this encounter (statuses as of 06/23/2022) [facility] History of Past illness Narrative* Problem Noted Date Resolved Date Nausea alone 08/26/2009 11/12/2013 Nausea 05/29/2009 11/12/2013 Abdominal pain, epigastric 05/28/200811/12 ACUTE GASTRITIS W/O HEMORRHAGE 05/28/2008 1 Unspecified gastritis and gastroduodenitis 03/2502/22/2015 Other plastic surgery for unacceptable cosmetic appearance 02/14/2004 02/22/2015 Nausea & vomiting 11/12/2013 documented as of this encounter (statuses as of 06/28/2022) [facility] History of Past illness Narrative* Problem Noted Date Resolved Date Nausea alone 08/26/2009 11/12/2013 Nausea 05/29/2009 11/12/2013 Abdominal pain, epigastric 05/28/200811/12 ACUTE GASTRITIS W/O HEMORRHAGE 05/28/2008 1 Unspecified gastritis and gastroduodenitis 03/2502/22/2015 Other plastic surgery for unacceptable cosmetic appearance 02/14/2004 02/22/2015 Nausea & vomiting 11/12/2013 documented as of this encounter (statuses as of 07/27/2022) [facility] History of Past illness Narrative* Problem Noted Date Resolved Date Nausea alone 08/26/2009 11/12/2013 Nausea 05/29/2009 11/12/2013 Abdominal pain, epigastric 05/28/200811/12 ACUTE GASTRITIS W/O HEMORRHAGE 05/28/2008 1 Unspecified gastritis and gastroduodenitis 03/2502/22/2015 Other plastic surgery for unacceptable cosmetic appearance 02/14/2004 02/22/2015 Nausea & vomiting 11/12/2013 documented as of this encounter (statuses as of 07/29/2022) [facility] History of Past illness Narrative* Problem Noted Date Resolved Date Nausea alone 08/26/2009 11/12/2013 Nausea 05/29/2009 11/12/2013 Abdominal pain, epigastric 05/28/200811/12 ACUTE GASTRITIS W/O HEMORRHAGE 05/28/2008 1 Unspecified gastritis and gastroduodenitis 03/2502/22/2015 Other plastic surgery for unacceptable cosmetic appearance 02/14/2004 02/22/2015 Nausea & vomiting 11/12/2013 documented as of this encounter (statuses as of 07/30/2022) [facility] History of Past illness Narrative* Problem Noted Date Resolved Date Nausea alone 08/26/2009 11/12/2013 Nausea 05/29/2009 11/12/2013 Abdominal pain, epigastric 05/28/200811/12 ACUTE GASTRITIS W/O HEMORRHAGE 05/28/2008 1 Unspecified gastritis and gastroduodenitis 03/2502/22/2015 Other plastic surgery for unacceptable cosmetic appearance 02/14/2004 02/22/2015 Nausea & vomiting 11/12/2013 documented as of this encounter (statuses as of 08/09/2022) [facility] History of Past illness Narrative* Problem Noted Date Resolved Date Nausea alone 08/26/2009 11/12/2013 Nausea 05/29/2009 11/12/2013 Abdominal pain, epigastric 05/28/200811/12 ACUTE GASTRITIS W/O HEMORRHAGE 05/28/2008 1 Unspecified gastritis and gastroduodenitis 03/2502/22/2015 Other plastic surgery for unacceptable cosmetic appearance 02/14/2004 02/22/2015 Nausea & vomiting 11/12/2013 documented as of this encounter (statuses as of 08/25/2022) [facility] History of Past illness Narrative* Problem Noted Date Resolved Date Nausea alone 08/26/2009 11/12/2013 Nausea 05/29/2009 11/12/2013 Abdominal pain, epigastric 05/28/200811/12 ACUTE GASTRITIS W/O HEMORRHAGE 05/28/2008 1 Unspecified gastritis and gastroduodenitis 03/2502/22/2015 Other plastic surgery for unacceptable cosmetic appearance 02/14/2004 02/22/2015 Nausea & vomiting 11/12/2013 documented as of this encounter (statuses as of 08/30/2022) [facility] History of Past illness Narrative* Problem Noted Date Resolved Date Nausea alone 08/26/2009 11/12/2013 Nausea 05/29/2009 11/12/2013 Abdominal pain, epigastric 05/28/200811/12 ACUTE GASTRITIS W/O HEMORRHAGE 05/28/2008 1 Unspecified gastritis and gastroduodenitis 03/2502/22/2015 Other plastic surgery for unacceptable cosmetic appearance 02/14/2004 02/22/2015 Nausea & vomiting 11/12/2013 documented as of this encounter (statuses as of 09/13/2022) [facility] History of Past illness Narrative* Problem Noted Date Resolved Date Nausea alone 08/26/2009 11/12/2013 Nausea 05/29/2009 11/12/2013 Abdominal pain, epigastric 05/28/200811/12 ACUTE GASTRITIS W/O HEMORRHAGE 05/28/2008 1 Unspecified gastritis and gastroduodenitis 03/2502/22/2015 Other plastic surgery for unacceptable cosmetic appearance 02/14/2004 02/22/2015 Nausea & vomiting 11/12/2013 documented as of this encounter (statuses as of 09/25/2022) [place] [address]-06-2010 History of Past illness Narrative* Problem Noted Date Resolved Date Nausea alone 08/26/2009 11/12/2013 Nausea 05/29/2009 11/12/2013 Abdominal pain, epigastric 05/28/200811/12 ACUTE GASTRITIS W/O HEMORRHAGE 05/28/2008 1 Unspecified gastritis and gastroduodenitis 03/2502/22/2015 Other plastic surgery for unacceptable cosmetic appearance 02/14/2004 02/22/2015 Nausea & vomiting 11/12/2013 documented as of this encounter (statuses as of 09/25/2022) [facility] History of Past illness Narrative* Problem Noted Date Resolved Date Nausea alone 08/26/2009 11/12/2013 Nausea 05/29/2009 11/12/2013 Abdominal pain, epigastric 05/28/200811/12 ACUTE GASTRITIS W/O HEMORRHAGE 05/28/2008 1 Unspecified gastritis and gastroduodenitis 03/2502/22/2015 Other plastic surgery for unacceptable cosmetic appearance 02/14/2004 02/22/2015 Nausea & vomiting 11/12/2013 documented as of this encounter (statuses as of 10/19/2022) [facility] History of Past illness Narrative* Problem Noted Date Resolved Date Nausea alone 08/26/2009 11/12/2013 Nausea 05/29/2009 11/12/2013 Abdominal pain, epigastric 05/28/200811/12 ACUTE GASTRITIS W/O HEMORRHAGE 05/28/2008 1 Unspecified gastritis and gastroduodenitis 03/2502/22/2015 Other plastic surgery for unacceptable cosmetic appearance 02/14/2004 02/22/2015 Nausea & vomiting 11/12/2013 documented as of this encounter (statuses as of 11/06/2022) [facility] History of Past illness Narrative* Problem Noted Date Resolved Date Nausea alone 08/26/2009 11/12/2013 Nausea 05/29/2009 11/12/2013 Abdominal pain, epigastric 05/28/200811/12 ACUTE GASTRITIS W/O HEMORRHAGE 05/28/2008 1 Unspecified gastritis and gastroduodenitis 03/2502/22/2015 Other plastic surgery for unacceptable cosmetic appearance 02/14/2004 02/22/2015 Nausea & vomiting 11/12/2013 documented as of this encounter (statuses as of 11/08/2022) [facility] History of Past illness Narrative* Problem Noted Date Resolved Date Nausea alone 08/26/2009 11/12/2013 Nausea 05/29/2009 11/12/2013 Abdominal pain, epigastric 05/28/200811/12 ACUTE GASTRITIS W/O HEMORRHAGE 05/28/2008 1 Unspecified gastritis and gastroduodenitis 03/2502/22/2015 Other plastic surgery for unacceptable cosmetic appearance 02/14/2004 02/22/2015 Nausea & vomiting 11/12/2013 documented as of this encounter (statuses as of 11/16/2022) [facility] History of Past illness Narrative* Problem Noted Date Resolved Date Nausea alone 08/26/2009 11/12/2013 Nausea 05/29/2009 11/12/2013 Abdominal pain, epigastric 05/28/200811/12 ACUTE GASTRITIS W/O HEMORRHAGE 05/28/2008 1 Unspecified gastritis and gastroduodenitis 03/2502/22/2015 Other plastic surgery for unacceptable cosmetic appearance 02/14/2004 02/22/2015 Nausea & vomiting 11/12/2013 documented as of this encounter (statuses as of 11/20/2022) [place] [id number] History of Past illness Narrative* Problem Noted Date Resolved Date Nausea alone 08/26/2009 11/12/2013 Nausea 05/29/2009 11/12/2013 Abdominal pain, epigastric 05/28/200811/12 ACUTE GASTRITIS W/O HEMORRHAGE 05/28/2008 1 Unspecified gastritis and gastroduodenitis 03/2502/22/2015 Other plastic surgery for unacceptable cosmetic appearance 02/14/2004 02/22/2015 Nausea & vomiting 11/12/2013 documented as of this encounter (statuses as of 11/24/2022) [facility]04-06-2010 History of Past illness Narrative* Problem Noted Date Resolved Date Nausea alone 08/26/2009 11/12/2013 Nausea 05/29/2009 11/12/2013 Abdominal pain, epigastric 05/28/200811/12 ACUTE GASTRITIS W/O HEMORRHAGE 05/28/2008 1 Unspecified gastritis and gastroduodenitis 03/2502/22/2015 Other plastic surgery for unacceptable cosmetic appearance 02/14/2004 02/22/2015 Nausea & vomiting 11/12/2013 documented as of this encounter (statuses as of 11/25/2022) [facility]2010 History of Past illness Narrative* Problem Noted Date Diagnosed Date Resolved Date Nausea alone 08/26/2009 11/12/2013 Nausea 05/29/2009 11/12/2013 Abdominal pain, epigastric 05/28/2008 0 11/12/2013 ACUTE GASTRITIS W/O HEMORRHAGE 05/28/2008 02/22/2015 Unspecified gastritis and gastroduodenitis 03/25/2005 02/22/2015 Other plastic surgery for un acceptable cosmetic appearance 02/14/2004 02/22/2015 Nausea & vomiting 11/12/2013 documented as of this encounter (statuses as of 12/04/2022) [facility]2010 History of Past illness Narrative* Problem Noted Date Diagnosed Date Resolved Date Nausea alone 08/26/2009 11/12/2013 Nausea 05/29/2009 11/12/2013 Abdominal pain, epigastric 05/28/2008 0 11/12/2013 ACUTE GASTRITIS W/O HEMORRHAGE 05/28/2008 02/22/2015 Unspecified gastritis and gastroduodenitis 03/25/2005 02/22/2015 Other plastic surgery for un acceptable cosmetic appearance 02/14/2004 02/22/2015 Nausea & vomiting 11/12/2013 documented as of this encounter (statuses as of 12/07/2022) [address] History of Past illness Narrative* Problem Noted Date Diagnosed Date Resolved Date Nausea alone 08/26/2009 11/12/2013 Nausea 05/29/2009 11/12/2013 Abdominal pain, epigastric 05/28/2008 0 11/12/2013 ACUTE GASTRITIS W/O HEMORRHAGE 05/28/2008 02/22/2015 Unspecified gastritis and gastroduodenitis 03/25/2005 02/22/2015 Other plastic surgery for un acceptable cosmetic appearance 02/14/2004 02/22/2015 Nausea & vomiting 11/12/2013 documented as of this encounter (statuses as of 12/09/2022) [facility]2010 History of Past illness Narrative* Problem Noted Date Diagnosed Date Resolved Date Nausea alone 08/26/2009 11/12/2013 Nausea 05/29/2009 11/12/2013 Abdominal pain, epigastric 05/28/2008 0 11/12/2013 ACUTE GASTRITIS W/O HEMORRHAGE 05/28/2008 02/22/2015 Unspecified gastritis and gastroduodenitis 03/25/2005 02/22/2015 Other plastic surgery for un acceptable cosmetic appearance 02/14/2004 02/22/2015 Nausea & vomiting 11/12/2013 documented as of this encounter (statuses as of 12/09/2022) [place] [id number] History of Past illness Narrative* Problem Noted Date Diagnosed Date Resolved Date Nausea alone 08/26/2009 11/12/2013 Nausea 05/29/2009 11/12/2013 Abdominal pain, epigastric 05/28/2008 0 11/12/2013 ACUTE GASTRITIS W/O HEMORRHAGE 05/28/2008 02/22/2015 Unspecified gastritis and gastroduodenitis 03/25/2005 02/22/2015 Other plastic surgery for un acceptable cosmetic appearance 02/14/2004 02/22/2015 Nausea & vomiting 11/12/2013 documented as of this encounter (statuses as of 12/16/2022) [facility]2010 History of Past illness Narrative* Problem Noted Date Diagnosed Date Resolved Date Nausea alone 08/26/2009 11/12/2013 Nausea 05/29/2009 11/12/2013 Abdominal pain, epigastric 05/28/2008 0 11/12/2013 ACUTE GASTRITIS W/O HEMORRHAGE 05/28/2008 02/22/2015 Unspecified gastritis and gastroduodenitis 03/25/2005 02/22/2015 Other plastic surgery for un acceptable cosmetic appearance 02/14/2004 02/22/2015 Nausea & vomiting 11/12/2013 documented as of this encounter (statuses as of 01/03/2023) [facility] History of Past illness Narrative* Problem Noted Date Diagnosed Date Resolved Date Nausea alone 08/26/2009 11/12/2013 Nausea 05/29/2009 11/12/2013 Abdominal pain, epigastric 05/28/2008 0 11/12/2013 ACUTE GASTRITIS W/O HEMORRHAGE 05/28/2008 02/22/2015 Unspecified gastritis and gastroduodenitis 03/25/2005 02/22/2015 Other plastic surgery for un acceptable cosmetic appearance 02/14/2004 02/22/2015 Nausea & vomiting 11/12/2013 documented as of this encounter (statuses as of 01/21/2023) [facility]2010 History of Past illness Narrative* Problem Noted Date Diagnosed Date Resolved Date Nausea alone 08/26/2009 11/12/2013 Nausea 05/29/2009 11/12/2013 Abdominal pain, epigastric 05/28/2008 0 11/12/2013 ACUTE GASTRITIS W/O HEMORRHAGE 05/28/2008 02/22/2015 Unspecified gastritis and gastroduodenitis 03/25/2005 02/22/2015 Other plastic surgery for un acceptable cosmetic appearance 02/14/2004 02/22/2015 Nausea & vomiting 11/12/2013 documented as of this encounter (statuses as of 01/25/2023) [facility] History of Past illness Narrative* Problem Noted Date Diagnosed Date Resolved Date Nausea alone 08/26/2009 11/12/2013 Nausea 05/29/2009 11/12/2013 Abdominal pain, epigastric 05/28/2008 0 11/12/2013 ACUTE GASTRITIS W/O HEMORRHAGE 05/28/2008 02/22/2015 Unspecified gastritis and gastroduodenitis 03/25/2005 02/22/2015 Other plastic surgery for un acceptable cosmetic appearance 02/14/2004 02/22/2015 Nausea & vomiting 11/12/2013 documented as of this encounter (statuses as of 02/04/2023) [facility] History of Past illness Narrative* Problem Noted Date Diagnosed Date Resolved Date Nausea alone 08/26/2009 11/12/2013 Nausea 05/29/2009 11/12/2013 Abdominal pain, epigastric 05/28/2008 0 11/12/2013 ACUTE GASTRITIS W/O HEMORRHAGE 05/28/2008 02/22/2015 Unspecified gastritis and gastroduodenitis 03/25/2005 02/22/2015 Other plastic surgery for un acceptable cosmetic appearance 02/14/2004 02/22/2015 Nausea & vomiting 11/12/2013 documented as of this encounter (statuses as of 02/04/2023) [facility] History of Past illness Narrative* Problem Noted Date Diagnosed Date Resolved Date Nausea alone 08/26/2009 11/12/2013 Nausea 05/29/2009 11/12/2013 Abdominal pain, epigastric 05/28/2008 0 11/12/2013 ACUTE GASTRITIS W/O HEMORRHAGE 05/28/2008 02/22/2015 Unspecified gastritis and gastroduodenitis 03/25/2005 02/22/2015 Other plastic surgery for un acceptable cosmetic appearance 02/14/2004 02/22/2015 Nausea & vomiting 11/12/2013 documented as of this encounter (statuses as of 03/02/2023) [facility]2010 History of Past illness Narrative* Problem Noted Date Diagnosed Date Resolved Date Nausea alone 08/26/2009 11/12/2013 Nausea 05/29/2009 11/12/2013 Abdominal pain, epigastric 05/28/2008 0 11/12/2013 ACUTE GASTRITIS W/O HEMORRHAGE 05/28/2008 02/22/2015 Unspecified gastritis and gastroduodenitis 03/25/2005 02/22/2015 Other plastic surgery for un acceptable cosmetic appearance 02/14/2004 02/22/2015 Nausea & vomiting 11/12/2013 documented as of this encounter (statuses as of 03/04/2023) [facility] History of Past illness Narrative* Problem Noted Date Diagnosed Date Resolved Date Nausea alone 08/26/2009 11/12/2013 Nausea 05/29/2009 11/12/2013 Abdominal pain, epigastric 05/28/2008 0 11/12/2013 ACUTE GASTRITIS W/O HEMORRHAGE 05/28/2008 02/22/2015 Unspecified gastritis and gastroduodenitis 03/25/2005 02/22/2015 Other plastic surgery for un acceptable cosmetic appearance 02/14/2004 02/22/2015 Nausea & vomiting 11/12/2013 documented as of this encounter (statuses as of 03/22/2023) [facility] History of Past illness Narrative* Problem Noted Date Diagnosed Date Resolved Date Nausea alone 08/26/2009 11/12/2013 Nausea 05/29/2009 11/12/2013 Abdominal pain, epigastric 05/28/2008 0 11/12/2013 ACUTE GASTRITIS W/O HEMORRHAGE 05/28/2008 02/22/2015 Unspecified gastritis and gastroduodenitis 03/25/2005 02/22/2015 Other plastic surgery for un acceptable cosmetic appearance 02/14/2004 02/22/2015 Nausea & vomiting 11/12/2013 documented as of this encounter (statuses as of 04/16/2023) [facility] History of Past illness Narrative* Problem Noted Date Diagnosed Date Resolved Date Nausea alone 08/26/2009 11/12/2013 Nausea 05/29/2009 11/12/2013 Abdominal pain, epigastric 05/28/2008 0 11/12/2013 ACUTE GASTRITIS W/O HEMORRHAGE 05/28/2008 02/22/2015 Unspecified gastritis and gastroduodenitis 03/25/2005 02/22/2015 Other plastic surgery for un acceptable cosmetic appearance 02/14/2004 02/22/2015 Nausea & vomiting 11/12/2013 documented as of this encounter (statuses as of 04/17/2023) [facility] History of Past illness Narrative* Problem Noted Date Diagnosed Date Resolved Date Nausea alone 08/26/2009 11/12/2013 Nausea 05/29/2009 11/12/2013 Abdominal pain, epigastric 05/28/2008 0 11/12/2013 ACUTE GASTRITIS W/O HEMORRHAGE 05/28/2008 02/22/2015 Unspecified gastritis and gastroduodenitis 03/25/2005 02/22/2015 Other plastic surgery for un acceptable cosmetic appearance 02/14/2004 02/22/2015 Nausea & vomiting 11/12/2013 documented as of this encounter (statuses as of 04/22/2023) [facility] History of Past illness Narrative* Problem Noted Date Diagnosed Date Resolved Date Nausea alone 08/26/2009 11/12/2013 Nausea 05/29/2009 11/12/2013 Abdominal pain, epigastric 05/28/2008 0 11/12/2013 ACUTE GASTRITIS W/O HEMORRHAGE 05/28/2008 02/22/2015 Unspecified gastritis and gastroduodenitis 03/25/2005 02/22/2015 Other plastic surgery for un acceptable cosmetic appearance 02/14/2004 02/22/2015 Nausea & vomiting 11/12/2013 documented as of this encounter (statuses as of 04/26/2023) [facility]2010 History of Past illness Narrative* Problem Noted Date Diagnosed Date Resolved Date Nausea alone 08/26/2009 11/12/2013 Nausea 05/29/2009 11/12/2013 Abdominal pain, epigastric 05/28/2008 0 11/12/2013 ACUTE GASTRITIS W/O HEMORRHAGE 05/28/2008 02/22/2015 Unspecified gastritis and gastroduodenitis 03/25/2005 02/22/2015 Other plastic surgery for un acceptable cosmetic appearance 02/14/2004 02/22/2015 Nausea & vomiting 11/12/2013 documented as of this encounter (statuses as of 04/29/2023) [facility] note* Diagnosis Anxiety- Primary Anxiety state, unspecified Psychophysiological insomnia Persistent disorder of initiating or maintaining sleep Vulvar hematoma Hematoma of vulva [facility] Diagnosis Pelvic pain in female- Primary Unspecified symptom associated with female genital organs [facility] Diagnosis Pelvic pain in female- Primary Unspecified symptom associated with female genital organs [facility] Diagnosis Vaginal pain- Primary Unspecified symptom associated with female genital organs Vaginal burning Other specified symptom associated with female genital organs [facility] Diagnosis Cough Bronchiectasis without complication (HCC) Bronchiectasis without acute exacerbation [facility] Diagnosis RUQ pain- Primary Abdominal pain, right upper quadrant Gastroesophageal reflux disease, unspecified whether esophagitis present [facility] Diagnosis Wound, open, leg, left, initial encounter- Primary Cellulitis of left lower extremity Cellulitis and abscess of leg, except foot Skin lesion Unspecified disorder of skin and subcutaneous tissue [facility] Diagnosis Lower abdominal pain- Primary Abdominal pain, other specified site Epigastric pain Abdominal pain, epigastric Diarrhea, unspecified type 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, not elsewhere classified, sequela Abscess of labia Other abscess of vulva Chronic pain of right ankle documented in this encounter [facility] note* Diagnosis Open wound of left lower leg, subsequent encounter- Primary Wound cellulitis Cellulitis and abscess of unspecified site documented in this encounter [facility] note* Diagnosis Chronic pain of right ankle- Primary Anxiety Anxiety state, unspecified Psychophysiological insomnia Persistent disorder of initiating or maintaining sleep Lower abdominal pain Abdominal pain, other specified site Abscess of labia Other abscess of vulva 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, not elsewhere classified, sequela Vaginal pain Unspecified symptom associated with female genital organs Need for COVID-19 vaccine documented in this encounter [facility] note* Diagnosis Closed fracture of right foot, initial encounter documented in this encounter [facility] note* Diagnosis Closed fracture of right foot, initial encounter documented in this encounter [facility] note* Diagnosis Cough Bronchiectasis without complication (HCC) Bronchiectasis without acute exacerbation documented in this encounter [facility] note* Diagnosis Psychophysiological insomnia Persistent disorder of initiating or maintaining sleep documented in this encounter [facility] note* Diagnosis Psychophysiological insomnia Persistent disorder of initiating or maintaining sleep documented in this encounter [facility] note* Diagnosis Anxiety Anxiety state, unspecified Psychophysiological insomnia Persistent disorder of initiating or maintaining sleep documented in this encounter [facility] note* Diagnosis Breast cancer screening by mammogram Mass overlapping multiple quadrants of left breast documented in this encounter [facility] note* Diagnosis Bronchiectasis with acute exacerbation (HCC)- Primary Bronchiectasis with acute exacerbation Acute cough documented in this encounter [facility] note* Diagnosis Diarrhea, unspecified type- Primary Generalized abdominal pain Abdominal pain, generalized Irritable bowel syndrome with diarrhea Irritable bowel syndrome Lower abdominal pain Abdominal pain, other specified site Nausea Nausea alone Abdominal bloating Flatulence, eructation, and gas pain Anxiety Anxiety state, unspecified Psychophysiological insomnia 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, not elsewhere classified, sequela Chronic pain of right ankle documented in this encounter [facility] note* Diagnosis Anxiety Anxiety state, unspecified Psychophysiological insomnia Persistent disorder of initiating or maintaining sleep documented in this encounter [facility] note* Diagnosis Psychophysiological insomnia Persistent disorder of initiating or maintaining sleep documented in this encounter [facility] note* Diagnosis Acute cough documented in this encounter [facility] note* Diagnosis RUQ pain- Primary Abdominal pain, right upper quadrant Gastroesophageal reflux disease, unspecified whether esophagitis present History of percutaneous angioplasty of SMA Irritable bowel syndrome with diarrhea Irritable bowel syndrome documented in this encounter [facility] note* Diagnosis RUQ pain- Primary Abdominal pain, right upper quadrant Anxiety Anxiety state, unspecified 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 Muscle Strain, RUQ Unspecified site of sprain and strain Irritable bowel syndrome with diarrhea Irritable bowel syndrome documented in this encounter [facility] note* Diagnosis Anxiety Anxiety state, unspecified Psychophysiological insomnia Persistent disorder of initiating or maintaining sleep documented in this encounter [facility] note* Diagnosis Bronchiectasis with acute exacerbation (HCC)- Primary Bronchiectasis with acute exacerbation Diarrhea, unspecified type Acute pansinusitis, recurrence not specified Cough Bronchiectasis without complication (HCC) Bronchiectasis without acute exacerbation documented in this encounter [facility] note* Diagnosis Cough Bronchiectasis without complication (HCC) Bronchiectasis without acute exacerbation documented in this encounter [facility] note* Diagnosis Acute diarrhea- Primary Diarrhea Anxiety Anxiety state, unspecified Psychophysiological insomnia Persistent disorder of initiating or maintaining sleep RUQ pain Abdominal pain, right upper quadrant Gastroesophageal reflux disease, unspecified whether esophagitis present documented in this encounter [facility] note* Diagnosis Psychophysiological insomnia- Primary Persistent disorder of initiating or maintaining sleep Pain of upper abdomen Abdominal pain, other specified site Bronchiectasis without complication (HCC) Bronchiectasis without acute exacerbation Nausea Nausea alone documented in this encounter [facility] note* Diagnosis Diverticulitis- Primary Diverticulitis of colon (without mention of hemorrhage) Bronchiectasis with acute exacerbation (HCC) Bronchiectasis with acute exacerbation Constipation, unspecified constipation type Cough documented in this encounter [facility] note* Diagnosis Cough Bronchiectasis with acute exacerbation (HCC) Bronchiectasis with acute exacerbation documented in this encounter [facility] note* Diagnosis Generalized abdominal pain- Primary Abdominal pain, generalized Irritable bowel syndrome with both constipation and diarrhea Gastroesophageal reflux disease, unspecified whether esophagitis present Diverticulosis Diverticulosis of colon (without mention of hemorrhage) [facility] Diagnosis Cervical neck pain with evidence of disc disease- Primary Other and unspecified disc disorder of cervical region Numbness of face Disturbance of skin sensation Arm numbness left Disturbance of skin sensation Anxiety Anxiety state, unspecified Psychophysiological insomnia Persistent disorder of initiating or maintaining sleep [facility] Diagnosis Diverticulitis- Primary Diverticulitis of colon (without mention of hemorrhage) Skin tear of right lower leg without complication, initial encounter Fall, initial encounter Strain of shoulder, unspecified laterality, initial encounter Generalized abdominal pain Abdominal pain, generalized [facility] Diagnosis Cervical neck pain with evidence of disc disease- Primary Other and unspecified disc disorder of cervical region Arm numbness left Disturbance of skin sensation Numbness of face Disturbance of skin sensation [facility] Diagnosis Psychophysiological insomnia Persistent disorder of initiating or maintaining sleep [facility] Diagnosis Cervical neck pain with evidence of disc disease Other and unspecified disc disorder of cervical region Arm numbness left Disturbance of skin sensation Numbness of face Disturbance of skin sensation [facility] Diagnosis Numbness of face- Primary Disturbance of skin sensation Cervical neck pain with evidence of disc disease Other and unspecified disc disorder of cervical region Arm numbness left Disturbance of skin sensation [facility] Anxiety- Primary Anxiety state, unspecified Psychophysiological insomnia Persistent disorder of initiating or maintaining sleep Diverticulitis Diverticulitis of colon (without mention of hemorrhage) Cervical neck pain with evidence of disc disease Other and unspecified disc disorder of cervical region Neck muscle spasm Spasm of muscle Diarrhea, unspecified type [facility] Diagnosis Strain of shoulder, unspecified laterality, initial encounter [facility] Diagnosis Cervical spondylosis without myelopathy- Primary Cervical radiculopathy Brachial neuritis or radiculitis nos Cervical stenosis of spinal canal Spinal stenosis in cervical region [facility] Acute cough Acute bronchitis [facility] Diagnosis Cough Bronchiectasis with acute exacerbation (HCC) Bronchiectasis with acute exacerbation Sinobronchitis Unspecified sinusitis (chronic) documented in this encounter [facility] note* Diagnosis Sinobronchitis- Primary Unspecified sinusitis (chronic) Cough Bronchiectasis with acute exacerbation (HCC) Bronchiectasis with acute exacerbation documented in this encounter [facility] note* Diagnosis SOB (shortness of breath)- Primary Shortness of breath documented in this encounter [facility] note* Diagnosis Bronchiectasis with acute lower respiratory infection (HCC)- Primary Bronchiectasis with acute exacerbation documented in this encounter [facility] note* Diagnosis Thrush (oral)- Primary Acute bronchitis, unspecified organism Anterior chest wall pain Painful respiration Subacute cough Cough Bronchiectasis with acute lower respiratory infection (HCC) Bronchiectasis with acute exacerbation Epigastric pain Abdominal pain, epigastric Constipation, unspecified constipation type Encounter for immunization Need for other specified prophylactic vaccination against single bacterial disease documented in this encounter [facility] note* Diagnosis Acute pansinusitis, recurrence not specified documented in this encounter [facility] note* Diagnosis Cough Sinobronchitis Unspecified sinusitis (chronic) Bronchiectasis with acute exacerbation (HCC) Bronchiectasis with acute exacerbation documented in this encounter [facility] note* Diagnosis 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, not elsewhere classified, sequela Lower abdominal pain Abdominal pain, other specified site Chronic pain of right ankle [facility] Diagnostic Procedure Only (Routine) - Pending Review Specialty Diagnoses / Procedures Referred By Brant galdamez Referred To Contact US IMAGING Diagnoses RUQ pain Gastroesophageal reflux disease, unspecified whether esophagitis present Procedures US ABD RT UPPER QUADRANT US ABDOMINAL REAL TIME W/IMAGE LIMITED Basilia Kellogg APRN.CNS [address] [place] [address] Us Imaging Referral ID Status Reason Start Date Expiration Date Visits Requested Visits Authorized [id number] Pending Review Auto-Generat ed Referral 11/20/2021 12/20/2022 1 1 [facility] for referral (narrative)* Diagnostic Procedure Only (Routine) - Authorized Specialty Diagnoses / Procedures Referred By Brant galdamez Referred To Contact XR IMAGING Diagnoses Lower abdominal pain Epigastric pain Diarrhea, unspecified type Procedures XR ABDOMEN 2V ROUTINE SUPINE W UPRIGHT/DECUB/CTL RADIOLOGIC EXAM ABDOMEN 2 VIEWS Jannet Mitchell MD [address] [place] [address] Xr Imaging Referral ID Status Reason Start Date Expiration Date Visits Requested Visits Authorized [id number] Authorized Auto-Generat ed Referral 12/18/2021 01/17/2023 1 1 * Diagnostic Procedure Only (Routine) - Pending Review Specialty Diagnoses / Procedures Referred By Contac t Referred To Contact XR IMAGING Diagnoses Lower abdominal pain Epigastric pain Diarrhea, unspecified type Procedures XR CHEST 1V FRONTAL RADIOLOGIC EXAM CHEST SINGLE VIEW Jannet Mitchell MD [address] [place] [address] Xr Imaging Referral ID Status Reason Start Date Expiration Date Visits Requested Visits Authorized [id number] Pending Review Auto-Generat ed Referral 12/18/2021 01/17/2023 1 1 [facility] for referral (narrative)* Diagnostic Procedure Only (Routine) - Closed Specialty Diagnoses / Procedures Referred By Contac t Referred To Contact XR IMAGING Diagnoses Wound cellulitis Procedures XR TIBIA FIBULA 2V AP/LAT LEFT RADIOLOGIC EXAMINATION TIBIA & FIBULA 2 VIEWS Tracy Mckeon APRN.CNP [address] [place] [address] Xr Imaging Referral ID Status Reason Start Date Expiration Date V isits Requested Visits Authorized [id number] Closed Auto-Generate d Referral 12/21/2021 01/20/2023 1 1 [facility] for referral (narrative)* Diagnostic Procedure Only (Routine) - Closed Specialty Diagnoses / Procedures Referred By Contac t Referred To Contact XR IMAGING Diagnoses Generalized abdominal pain Irritable bowel syndrome with both constipation and diarrhea Procedures XR ABDOMEN 1V SUPINE RADIOLOGIC EXAM ABDOMEN 1 VIEW Jannet Mitchell MD [address] [place] [address] Xr Imaging Referral ID Status Reason Start Date Expiration Date V isits Requested Visits Authorized [id number] Closed Auto-Generate d Referral 10/05/2022 11/04/2023 1 1 [facility] for referral (narrative)* Diagnostic Procedure Only (Routine) - Closed Specialty Diagnoses / Procedures Referred By Brant galdamez Referred To Contact XR IMAGING Diagnoses Cervical neck pain with evidence of disc disease Numbness of face Arm numbness left Procedures XR CERV OTHER 4V AP/LAT/OBL RADEX SPINE CERVICAL 4 OR 5 VIEWS Jannet Mitchell MD [facility] [place] [address] Xr Imaging Referral ID Status Reason Start Date Expiration Date V isits Requested Visits Authorized [id number] Closed Auto-Generate d Referral 11/15/2022 12/15/2023 1 1 [facility] for visit Narrative* Diagnostic Procedure Only (Routine) - Closed Specialty Diagnoses / Procedures Referred By Brant galdamez Referred To Contact [facility] Diagnoses Abnormal ultrasound Procedures PELVIC US [facility] ECHO EXAM OF PELVIS Riddhi Ty MD [address] [place] [address] [facility] [address] [place] [address] Referral ID Status Reason Start Date Expiration Date V isits Requested Visits Authorized [id number] Closed Auto-Generate d Referral 04/08/2021 04/08/2022 1 1 [facility] for visit Narrative* Diagnostic Procedure Only (Routine) - Closed Specialty Diagnoses / Procedures Referred By Brant galdamez Referred To Contact BR IMAGING Diagnoses Breast cancer screening by mammogram Mass overlapping multiple quadrants of left breast Procedures MIMI DIAGNOSTIC LT DIAGNOSTIC MAMMOGRAPHY COMPUTER-AIDED DETCJ UNI Jannet Mitchell MD [address] [place] [address] [facility] [address] [place] [address] Referral ID Status Reason Start Date Expiration Date V isits Requested Visits Authorized [id number] Closed Auto-Generate d Referral 02/03/2022 03/05/2023 1 1 [facility] Summary Purpose Family History No Family History Records FoundNo Family History Records FoundNo Family History Records FoundNo Family History Records Found Advance Directives No Advanced Directives Records FoundDocuments on File Type Date Recorded Patient Kennel Hand Expl anation Advance Directive(s) 01/02/2019 7:37 PM Advance Directive(s) 10/23/2018 2:42 PM Advance Directive(s) 10/22/2018 9:29 PM Advance Directive(s) 03/31/2018 6:16 PM Advance Directive(s) 03/20/2018 5:08 PM Advance Directive(s) 09/22/2015 1:29 PM Advance Directive(s) 02/03/2014 8:50 AM Documents on File Type Date Recorded Patient Kennel Hand Expl anation Advance Directive(s) 01/02/2019 7:37 PM Advance Directive(s) 10/23/2018 2:42 PM Advance Directive(s) 10/22/2018 9:29 PM Advance Directive(s) 03/31/2018 6:16 PM Advance Directive(s) 03/20/2018 5:08 PM Advance Directive(s) 09/22/2015 1:29 PM Advance Directive(s) 02/03/2014 8:50 AM Documents on File Type Date Recorded Patient Kennel Hand Expl anation Advance Directive(s) 02/03/2014 8:50 AM Documents on File Type Date Recorded Patient Kennel Hand Expl anation Advance Directive(s) 02/03/2014 8:50 AM Reason for Referral Specialty Diagnoses / Procedures Referred By Contac t Referred To Contact Dermatology Diagnoses Skin lesion Procedures CONSULT TO DERMATOLOGY Angelito Casiano MD [address] [place] [address] Referral ID Status Reason Start Date Expiration Date Visits Requested Visits Authorized [id number] Ref Not Required PCP Requested Referral 12/14/2021 12/14/2022 1 1 Specialty Diagnoses / Procedures Referred By Brant t Referred To Contact MR IMAGING Diagnoses Closed fracture of right foot, initial encounter Procedures MRI FOOT/TOES WO IVCON RT MRI LOWER EXTREM OTH/THN JT W/O CONTR MATRL Ephraim Medina MD [address] [place] [address] Mr Imaging Referral ID Status Reason Start Date Expiration Date V isits Requested Visits Authorized [id number] Closed Auto-Generate d Referral 10/14/2021 11/13/2022 1 1 Specialty Diagnoses / Procedures Referred By Contac t Referred To Contact CT IMAGING Diagnoses Closed fracture of right foot, initial encounter Procedures CT FOOT WO IVCON RT CT LOWER EXTREMITY W/O CONTRAST MATERIAL Ephraim Medina MD [address] [place] [address] Ct Imaging Referral ID Status Reason Start Date Expiration Date V isits Requested Visits Authorized [id number] Closed Auto-Generate d Referral 10/14/2021 11/13/2022 1 1 Specialty Diagnoses / Procedures Referred By Contac t Referred To Contact GASTROENTEROLOGY Diagnoses Irritable bowel syndrome with diarrhea Diarrhea, unspecified type Generalized abdominal pain Nausea Procedures CONSULT TO GASTROENTEROLOGY OFFICE/OUTPATIENT [facility] 60-74 MINUTES Jannet Mitchell MD [address] [place] [address] Gerardo Quesada, [address] [address] Referral ID Status Reason Start Date Expiration Date Visits Requested Visits Authorized [id number] Authorized PCP Requested Referral 2 05/22/2022 99 99 Specialty Diagnoses / Procedures Referred By Contac t Referred To Contact Pain Management Diagnoses Cervical neck pain with evidence of disc disease Arm numbness left Numbness of face Procedures CONSULT TO PAIN MGT OFFICE/OUTPATIENT [facility] 60-74 MINUTES Jannet Mitchell MD [address] [place] [address] Gina Azevedo MD [address] [address] Referral ID Status Reason Start Date Expiration Date Visits Requested Visits Authorized [id number] Authorized PCP Requested Referral 11/24/2022 11/24/2023 1 1 Specialty Diagnoses / Procedures Referred By Contac t Referred To Contact [facility] Diagnoses Cervical neck pain with evidence of disc disease Arm numbness left Numbness of face Procedures CONSULT TO PHYSICAL THERAPY PHYSICAL THERAPY EVALUATION HIGH COMPLEX 45 MINS Jannet Mitchell MD [address] [place] [address] [facility] [address] [address] Referral ID Status Reason Start Date Expiration Date Visits Requested Visits Authorized [id number] Authorized PCP Requested Referral Auto-Generate d Referral 11/24/2022 11/24/2023 99 99 Specialty Diagnoses / Procedures Referred By Contac t Referred To Contact [facility] Diagnoses Cervical neck pain with evidence of disc disease Arm numbness left Numbness of face Procedures PT REHAB FOLLOW UP ORDER THERAPEUTIC EXERCISES RE, EA 15 MIN. Matthew Diaz, PT [address] [place] [address] [facility] [address] [address] Referral ID Status Reason Start Date Expiration Date Visits Requested Visits Authorized [id number] Pending Review PCP Requested Referral Auto-Generate d Referral 12/09/2022 03/09/2023 1 1 Specialty Diagnoses / Procedures Referred By Contac t Referred To Contact Diagnoses Strain of shoulder, unspecified laterality, initial encounter Jannet Mitchell MD [address] [place] [address] Referral ID Status Reason Start Date Expiration Date Visits Re quested Visits Authorized [id number] Closed 1 1 Specialty Diagnoses / Procedures Referred By Contac t Referred To Contact [facility] Diagnoses Cervical spondylosis without myelopathy Procedures CONSULT TO PHYSICAL THERAPY PHYSICAL THERAPY EVALUATION HIGH COMPLEX 45 MINS Gina Azevedo MD [address] [address] [facility] [address] [address] Referral ID Status Reason Start Date Expiration Date Visits Requested Visits Authorized [id number] Authorized PCP Requested Referral Auto-Generate d Referral 02/03/2023 02/03/2024 99 99 Additional Source Comments INFORMATION SOURCE (unrecogn ized section and content) DATE CREATED AUTHOR AUTHOR'S ORGANIZ ATION 01/10/2019 [facility] DATE CREATED AUTHOR AUTHOR'S ORGANIZ ATION 02/05/2023 [facility] DATE CREATED AUTHOR AUTHOR'S ORGANIZ ATION 07/30/2023 [facility] Source Comments (unrecognize d section and content) In the event this informatio n is protected by the Federal Confidentiality of Alcohol and Drug Abuse Patient Records regulations: The Federal rules restrict any use of the information to criminally investigate or prosecute any alcohol or drug abuse patient.[facility] the event this information is protected by the Federal Confidentiality of Alcohol and Drug Abuse Patient Records regulations: The Federal rules restrict any use of the information to criminally investigate or prosecute any alcohol or drug abuse patient.[facility] the event this information is protected by the Federal Confidentiality of Alcohol and Drug Abuse Patient Records regulations: The Federal rules restrict any use of the information to criminally investigate or prosecute any alcohol or drug abuse patient.[facility] the event this information is protected by the Federal Confidentiality of Alcohol and Drug Abuse Patient Records regulations: The Federal rules restrict any use of the information to criminally investigate or prosecute any alcohol or drug abuse patient.[facility] the event this information is protected by the Federal Confidentiality of Alcohol and Drug Abuse Patient Records regulations: The Federal rules restrict any use of the information to criminally investigate or prosecute any alcohol or drug abuse patient.[facility] HospitalIn the event this information is protected by the Federal Confidentiality of Alcohol and Drug Abuse Patient Records regulations: The Federal rules restrict any use of the information to criminally investigate or prosecute any alcohol or drug abuse patient.[facility] the event this information is protected by the Federal Confidentiality of Alcohol and Drug Abuse Patient Records regulations: The Federal rules restrict any use of the information to criminally investigate or prosecute any alcohol or drug abuse patient.[facility] HospitalIn the event this information is protected by the Federal Confidentiality of Alcohol and Drug Abuse Patient Records regulations: The Federal rules restrict any use of the information to criminally investigate or prosecute any alcohol or drug abuse patient.[facility] HospitalIn the event this information is protected by the Federal Confidentiality of Alcohol and Drug Abuse Patient Records regulations: The Federal rules restrict any use of the information to criminally investigate or prosecute any alcohol or drug abuse patient.[facility] HospitalIn the event this information is protected by the Federal Confidentiality of Alcohol and Drug Abuse Patient Records regulations: The Federal rules restrict any use of the information to criminally investigate or prosecute any alcohol or drug abuse patient.[facility] HospitalIn the event this information is protected by the Federal Confidentiality of Alcohol and Drug Abuse Patient Records regulations: The Federal rules restrict any use of the information to criminally investigate or prosecute any alcohol or drug abuse patient.[facility] HospitalIn the event this information is protected by the Federal Confidentiality of Alcohol and Drug Abuse Patient Records regulations: The Federal rules restrict any use of the information to criminally investigate or prosecute any alcohol or drug abuse patient.[facility] HospitalIn the event this information is protected by the Federal Confidentiality of Alcohol and Drug Abuse Patient Records regulations: The Federal rules restrict any use of the information to criminally investigate or prosecute any alcohol or drug abuse patient.[facility] HospitalIn the event this information is protected by the Federal Confidentiality of Alcohol and Drug Abuse Patient Records regulations: The Federal rules restrict any use of the information to criminally investigate or prosecute any alcohol or drug abuse patient.[facility] HospitalIn the event this information is protected by the Federal Confidentiality of Alcohol and Drug Abuse Patient Records regulations: The Federal rules restrict any use of the information to criminally investigate or prosecute any alcohol or drug abuse patient.[facility] HospitalIn the event this information is protected by the Federal Confidentiality of Alcohol and Drug Abuse Patient Records regulations: The Federal rules restrict any use of the information to criminally investigate or prosecute any alcohol or drug abuse patient.[facility] HospitalIn the event this information is protected by the Federal Confidentiality of Alcohol and Drug Abuse Patient Records regulations: The Federal rules restrict any use of the information to criminally investigate or prosecute any alcohol or drug abuse patient.[facility] HospitalIn the event this information is protected by the Federal Confidentiality of Alcohol and Drug Abuse Patient Records regulations: The Federal rules restrict any use of the information to criminally investigate or prosecute any alcohol or drug abuse patient.[facility] HospitalIn the event this information is protected by the Federal Confidentiality of Alcohol and Drug Abuse Patient Records regulations: The Federal rules restrict any use of the information to criminally investigate or prosecute any alcohol or drug abuse patient.[facility] HospitalIn the event this information is protected by the Federal Confidentiality of Alcohol and Drug Abuse Patient Records regulations: The Federal rules restrict any use of the information to criminally investigate or prosecute any alcohol or drug abuse patient.[facility] HospitalIn the event this information is protected by the Federal Confidentiality of Alcohol and Drug Abuse Patient Records regulations: The Federal rules restrict any use of the information to criminally investigate or prosecute any alcohol or drug abuse patient.[facility] HospitalIn the event this information is protected by the Federal Confidentiality of Alcohol and Drug Abuse Patient Records regulations: The Federal rules restrict any use of the information to criminally investigate or prosecute any alcohol or drug abuse patient.[facility] HospitalIn the event this information is protected by the Federal Confidentiality of Alcohol and Drug Abuse Patient Records regulations: The Federal rules restrict any use of the information to criminally investigate or prosecute any alcohol or drug abuse patient.[facility] HospitalIn the event this information is protected by the Federal Confidentiality of Alcohol and Drug Abuse Patient Records regulations: The Federal rules restrict any use of the information to criminally investigate or prosecute any alcohol or drug abuse patient.[facility] HospitalIn the event this information is protected by the Federal Confidentiality of Alcohol and Drug Abuse Patient Records regulations: The Federal rules restrict any use of the information to criminally investigate or prosecute any alcohol or drug abuse patient.[facility] HospitalIn the event this information is protected by the Federal Confidentiality of Alcohol and Drug Abuse Patient Records regulations: The Federal rules restrict any use of the information to criminally investigate or prosecute any alcohol or drug abuse patient.[facility] HospitalIn the event this information is protected by the Federal Confidentiality of Alcohol and Drug Abuse Patient Records regulations: The Federal rules restrict any use of the information to criminally investigate or prosecute any alcohol or drug abuse patient.[facility] HospitalIn the event this information is protected by the Federal Confidentiality of Alcohol and Drug Abuse Patient Records regulations: The Federal rules restrict any use of the information to criminally investigate or prosecute any alcohol or drug abuse patient.[facility] HospitalIn the event this information is protected by the Federal Confidentiality of Alcohol and Drug Abuse Patient Records regulations: The Federal rules restrict any use of the information to criminally investigate or prosecute any alcohol or drug abuse patient.[facility] HospitalIn the event this information is protected by the Federal Confidentiality of Alcohol and Drug Abuse Patient Records regulations: The Federal rules restrict any use of the information to criminally investigate or prosecute any alcohol or drug abuse patient.[facility] HospitalIn the event this information is protected by the Federal Confidentiality of Alcohol and Drug Abuse Patient Records regulations: The Federal rules restrict any use of the information to criminally investigate or prosecute any alcohol or drug abuse patient.[facility] HospitalIn the event this information is protected by the Federal Confidentiality of Alcohol and Drug Abuse Patient Records regulations: The Federal rules restrict any use of the information to criminally investigate or prosecute any alcohol or drug abuse patient.[facility] HospitalIn the event this information is protected by the Federal Confidentiality of Alcohol and Drug Abuse Patient Records regulations: The Federal rules restrict any use of the information to criminally investigate or prosecute any alcohol or drug abuse patient.[facility] HospitalIn the event this information is protected by the Federal Confidentiality of Alcohol and Drug Abuse Patient Records regulations: The Federal rules restrict any use of the information to criminally investigate or prosecute any alcohol or drug abuse patient.[facility] HospitalIn the event this information is protected by the Federal Confidentiality of Alcohol and Drug Abuse Patient Records regulations: The Federal rules restrict any use of the information to criminally investigate or prosecute any alcohol or drug abuse patient.[facility] HospitalIn the event this information is protected by the Federal Confidentiality of Alcohol and Drug Abuse Patient Records regulations: The Federal rules restrict any use of the information to criminally investigate or prosecute any alcohol or drug abuse patient.[facility] HospitalIn the event this information is protected by the Federal Confidentiality of Alcohol and Drug Abuse Patient Records regulations: The Federal rules restrict any use of the information to criminally investigate or prosecute any alcohol or drug abuse patient.[facility] HospitalIn the event this information is protected by the Federal Confidentiality of Alcohol and Drug Abuse Patient Records regulations: The Federal rules restrict any use of the information to criminally investigate or prosecute any alcohol or drug abuse patient.[facility] HospitalIn the event this information is protected by the Federal Confidentiality of Alcohol and Drug Abuse Patient Records regulations: The Federal rules restrict any use of the information to criminally investigate or prosecute any alcohol or drug abuse patient.[facility] HospitalIn the event this information is protected by the Federal Confidentiality of Alcohol and Drug Abuse Patient Records regulations: The Federal rules restrict any use of the information to criminally investigate or prosecute any alcohol or drug abuse patient.[facility] HospitalIn the event this information is protected by the Federal Confidentiality of Alcohol and Drug Abuse Patient Records regulations: The Federal rules restrict any use of the information to criminally investigate or prosecute any alcohol or drug abuse patient.[facility] HospitalIn the event this information is protected by the Federal Confidentiality of Alcohol and Drug Abuse Patient Records regulations: The Federal rules restrict any use of the information to criminally investigate or prosecute any alcohol or drug abuse patient.[facility] HospitalIn the event this information is protected by the Federal Confidentiality of Alcohol and Drug Abuse Patient Records regulations: The Federal rules restrict any use of the information to criminally investigate or prosecute any alcohol or drug abuse patient.[facility] HospitalIn the event this information is protected by the Federal Confidentiality of Alcohol and Drug Abuse Patient Records regulations: The Federal rules restrict any use of the information to criminally investigate or prosecute any alcohol or drug abuse patient.[facility] HospitalIn the event this information is protected by the Federal Confidentiality of Alcohol and Drug Abuse Patient Records regulations: The Federal rules restrict any use of the information to criminally investigate or prosecute any alcohol or drug abuse patient.[facility] HospitalIn the event this information is protected by the Federal Confidentiality of Alcohol and Drug Abuse Patient Records regulations: The Federal rules restrict any use of the information to criminally investigate or prosecute any alcohol or drug abuse patient.[facility] HospitalIn the event this information is protected by the Federal Confidentiality of Alcohol and Drug Abuse Patient Records regulations: The Federal rules restrict any use of the information to criminally investigate or prosecute any alcohol or drug abuse patient.[facility] HospitalIn the event this information is protected by the Federal Confidentiality of Alcohol and Drug Abuse Patient Records regulations: The Federal rules restrict any use of the information to criminally investigate or prosecute any alcohol or drug abuse patient.[facility] HospitalIn the event this information is protected by the Federal Confidentiality of Alcohol and Drug Abuse Patient Records regulations: The Federal rules restrict any use of the information to criminally investigate or prosecute any alcohol or drug abuse patient.[facility] HospitalIn the event this information is protected by the Federal Confidentiality of Alcohol and Drug Abuse Patient Records regulations: The Federal rules restrict any use of the information to criminally investigate or prosecute any alcohol or drug abuse patient.[facility] HospitalIn the event this information is protected by the Federal Confidentiality of Alcohol and Drug Abuse Patient Records regulations: The Federal rules restrict any use of the information to criminally investigate or prosecute any alcohol or drug abuse patient.[facility] HospitalIn the event this information is protected by the Federal Confidentiality of Alcohol and Drug Abuse Patient Records regulations: The Federal rules restrict any use of the information to criminally investigate or prosecute any alcohol or drug abuse patient.[facility] HospitalIn the event this information is protected by the Federal Confidentiality of Alcohol and Drug Abuse Patient Records regulations: The Federal rules restrict any use of the information to criminally investigate or prosecute any alcohol or drug abuse patient.[facility] HospitalIn the event this information is protected by the Federal Confidentiality of Alcohol and Drug Abuse Patient Records regulations: The Federal rules restrict any use of the information to criminally investigate or prosecute any alcohol or drug abuse patient.[facility] HospitalIn the event this information is protected by the Federal Confidentiality of Alcohol and Drug Abuse Patient Records regulations: The Federal rules restrict any use of the information to criminally investigate or prosecute any alcohol or drug abuse patient.[facility] HospitalIn the event this information is protected by the Federal Confidentiality of Alcohol and Drug Abuse Patient Records regulations: The Federal rules restrict any use of the information to criminally investigate or prosecute any alcohol or drug abuse patient.[facility] HospitalIn the event this information is protected by the Federal Confidentiality of Alcohol and Drug Abuse Patient Records regulations: The Federal rules restrict any use of the information to criminally investigate or prosecute any alcohol or drug abuse patient.[facility] HospitalIn the event this information is protected by the Federal Confidentiality of Alcohol and Drug Abuse Patient Records regulations: The Federal rules restrict any use of the information to criminally investigate or prosecute any alcohol or drug abuse patient.[facility] HospitalIn the event this information is protected by the Federal Confidentiality of Alcohol and Drug Abuse Patient Records regulations: The Federal rules restrict any use of the information to criminally investigate or prosecute any alcohol or drug abuse patient.[facility] HospitalIn the event this information is protected by the Federal Confidentiality of Alcohol and Drug Abuse Patient Records regulations: The Federal rules restrict any use of the information to criminally investigate or prosecute any alcohol or drug abuse patient.[facility] HospitalIn the event this information is protected by the Federal Confidentiality of Alcohol and Drug Abuse Patient Records regulations: The Federal rules restrict any use of the information to criminally investigate or prosecute any alcohol or drug abuse patient.[facility] HospitalIn the event this information is protected by the Federal Confidentiality of Alcohol and Drug Abuse Patient Records regulations: The Federal rules restrict any use of the information to criminally investigate or prosecute any alcohol or drug abuse patient.[facility] HospitalIn the event this information is protected by the Federal Confidentiality of Alcohol and Drug Abuse Patient Records regulations: The Federal rules restrict any use of the information to criminally investigate or prosecute any alcohol or drug abuse patient.[facility] HospitalIn the event this information is protected by the Federal Confidentiality of Alcohol and Drug Abuse Patient Records regulations: The Federal rules restrict any use of the information to criminally investigate or prosecute any alcohol or drug abuse patient.[facility] HospitalIn the event this information is protected by the Federal Confidentiality of Alcohol and Drug Abuse Patient Records regulations: The Federal rules restrict any use of the information to criminally investigate or prosecute any alcohol or drug abuse patient.[facility] HospitalIn the event this information is protected by the Federal Confidentiality of Alcohol and Drug Abuse Patient Records regulations: The Federal rules restrict any use of the information to criminally investigate or prosecute any alcohol or drug abuse patient.[facility] HospitalIn the event this information is protected by the Federal Confidentiality of Alcohol and Drug Abuse Patient Records regulations: The Federal rules restrict any use of the information to criminally investigate or prosecute any alcohol or drug abuse patient.[facility] HospitalIn the event this information is protected by the Federal Confidentiality of Alcohol and Drug Abuse Patient Records regulations: The Federal rules restrict any use of the information to criminally investigate or prosecute any alcohol or drug abuse patient.[facility] HospitalIn the event this information is protected by the Federal Confidentiality of Alcohol and Drug Abuse Patient Records regulations: The Federal rules restrict any use of the information to criminally investigate or prosecute any alcohol or drug abuse patient.[facility] HospitalIn the event this information is protected by the Federal Confidentiality of Alcohol and Drug Abuse Patient Records regulations: The Federal rules restrict any use of the information to criminally investigate or prosecute any alcohol or drug abuse patient.[facility] HospitalIn the event this information is protected by the Federal Confidentiality of Alcohol and Drug Abuse Patient Records regulations: The Federal rules restrict any use of the information to criminally investigate or prosecute any alcohol or drug abuse patient.[facility] HospitalIn the event this information is protected by the Federal Confidentiality of Alcohol and Drug Abuse Patient Records regulations: The Federal rules restrict any use of the information to criminally investigate or prosecute any alcohol or drug abuse patient.[facility] HospitalIn the event this information is protected by the Federal Confidentiality of Alcohol and Drug Abuse Patient Records regulations: The Federal rules restrict any use of the information to criminally investigate or prosecute any alcohol or drug abuse patient.[facility] HospitalIn the event this information is protected by the Federal Confidentiality of Alcohol and Drug Abuse Patient Records regulations: The Federal rules restrict any use of the information to criminally investigate or prosecute any alcohol or drug abuse patient.[facility] HospitalIn the event this information is protected by the Federal Confidentiality of Alcohol and Drug Abuse Patient Records regulations: The Federal rules restrict any use of the information to criminally investigate or prosecute any alcohol or drug abuse patient.[facility] HospitalIn the event this information is protected by the Federal Confidentiality of Alcohol and Drug Abuse Patient Records regulations: The Federal rules restrict any use of the information to criminally investigate or prosecute any alcohol or drug abuse patient.[facility] HospitalIn the event this information is protected by the Federal Confidentiality of Alcohol and Drug Abuse Patient Records regulations: The Federal rules restrict any use of the information to criminally investigate or prosecute any alcohol or drug abuse patient.[facility] HospitalIn the event this information is protected by the Federal Confidentiality of Alcohol and Drug Abuse Patient Records regulations: The Federal rules restrict any use of the information to criminally investigate or prosecute any alcohol or drug abuse patient.[facility] HospitalIn the event this information is protected by the Federal Confidentiality of Alcohol and Drug Abuse Patient Records regulations: The Federal rules restrict any use of the information to criminally investigate or prosecute any alcohol or drug abuse patient.[facility] HospitalIn the event this information is protected by the Federal Confidentiality of Alcohol and Drug Abuse Patient Records regulations: The Federal rules restrict any use of the information to criminally investigate or prosecute any alcohol or drug abuse patient.[facility] HospitalIn the event this information is protected by the Federal Confidentiality of Alcohol and Drug Abuse Patient Records regulations: The Federal rules restrict any use of the information to criminally investigate or prosecute any alcohol or drug abuse patient.[facility] HospitalIn the event this information is protected by the Federal Confidentiality of Alcohol and Drug Abuse Patient Records regulations: The Federal rules restrict any use of the information to criminally investigate or prosecute any alcohol or drug abuse patient.[facility] HospitalIn the event this information is protected by the Federal Confidentiality of Alcohol and Drug Abuse Patient Records regulations: The Federal rules restrict any use of the information to criminally investigate or prosecute any alcohol or drug abuse patient.[facility] HospitalIn the event this information is protected by the Federal Confidentiality of Alcohol and Drug Abuse Patient Records regulations: The Federal rules restrict any use of the information to criminally investigate or prosecute any alcohol or drug abuse patient.[facility] HospitalIn the event this information is protected by the Federal Confidentiality of Alcohol and Drug Abuse Patient Records regulations: The Federal rules restrict any use of the information to criminally investigate or prosecute any alcohol or drug abuse patient.[facility] HospitalIn the event this information is protected by the Federal Confidentiality of Alcohol and Drug Abuse Patient Records regulations: The Federal rules restrict any use of the information to criminally investigate or prosecute any alcohol or drug abuse patient.[facility] HospitalIn the event this information is protected by the Federal Confidentiality of Alcohol and Drug Abuse Patient Records regulations: The Federal rules restrict any use of the information to criminally investigate or prosecute any alcohol or drug abuse patient.[facility] Reason for Visit (unrecogniz ed section and content) Reason Comments F/U 3 Month Reason Comments Treatment Planning Reason Comments Pelvic Pain Reason Comments Abdominal Pain Reason Comments Vaginal Problem Reason Comments Results Reason Comments Cough Sore Throat Reason Comments New Patient Reason Comments Patient Question Patient Update Medication Request Reason Comments Patient Update Medication Problem Reason Comments Abdominal Pain RUQ pain - decreased appetite Reason Comments Wound Evaluation follow up Reason Comments Referral Information Reason Comments Orders Reason Comments Orders Reason Comments Wound Check 1 week follow up Reason Comments Follow Up Specialty Diagnoses / Procedures Referred By Contac t Referred To Contact [facility] IMAGING Diagnoses Closed fracture of right foot, initial encounter Procedures MRI FOOT/TOES WO IVCON RT MRI LOWER EXTREM OTH/THN JT W/O CONTR MATRL Ephraim Medina MD [address] [place] [address] Mr Imaging Referral ID Status Reason Start Date Expiration Date V isits Requested Visits Authorized [id number] Closed Auto-Generate d Referral 10/14/2021 11/13/2022 [address] Specialty Diagnoses / Procedures Referred By Contac t Referred To Contact CT IMAGING Diagnoses Closed fracture of right foot, initial encounter Procedures CT FOOT WO IVCON RT CT LOWER EXTREMITY W/O CONTRAST MATERIAL Ephraim Medina MD [address] [place] [address] Ct Imaging Referral ID Status Reason Start Date Expiration Date V isits Requested Visits Authorized [id number] Closed Auto-Generate d Referral 10/14/2021 11/13/2022 1 1 Reason Comments Patient Question Reason Onset Date Comments Refill Request 01/26/2022 Reason Comments Medication Problem Reason Comments Refill Request Reason Comments Radiology US Specialty Diagnoses / Procedures Referred By Contac t Referred To Contact [facility] IMAGING Diagnoses Breast cancer screening by mammogram Mass overlapping multiple quadrants of left breast Procedures US BREAST LTD LT US BREAST UNI REAL TIME WITH IMAGE LIMITED Jannet Mitchell MD [address] [place] [address] Br Imaging [address] [place] [address] Referral ID Status Reason Start Date Expiration Date V isits Requested Visits Authorized [id number] Closed Auto-Generate d Referral 02/03/2022 03/05/2023 1 1 Reason Comments Appointment Reason Comments cough and sore throat x 5 days Reason Comments Diarrhea Reason Comments Request for xray Reason Comments Referral Information Dr. Quesada Reason Comments Medication Request Reason Comments Follow Up Reason Comments decrease weight loss/refill Reason Comments ER F/U [facility] Reason Comments ED Follow-up [facility] ED follow up () Reason Onset Date Comments Refill Request 06/25/2022 Reason Comments mammogram orders Reason Comments stomach swelling Reason Comments Cough Productive cough Reason Comments Established Patient Reason Comments F/U 3 months Reason Comments Medication Request Antibiotic and cough med Reason Comments Follow Up Abdominal Pain pain since colonosco py x 4 weeks ago 08/25/22 Reason Comments GI issues Reason Comments Left side numbness Reason Comments ED Follow-up Reason Comments Established Patient Follow up Reason Comments Results Patient Question Reason Onset Date Comments Refill Request 12/06/2022 Reason Comments PT Eval Specialty Diagnoses / Procedures Referred By Contac t Referred To Contact [facility] Diagnoses Cervical neck pain with evidence of disc disease Arm numbness left Numbness of face Procedures CONSULT TO PHYSICAL THERAPY PHYSICAL THERAPY EVALUATION HIGH COMPLEX 45 MINS Jannet Mitchell MD [facility] [place] [address] [address] Referral ID Status Reason Start Date Expiration Date Visits Requested Visits Authorized [id number] Authorized PCP Requested Referral Auto-Generate d Referral 11/24/2022 11/24/2023 99 99 Reason Comments Physical Therapy Specialty Diagnoses / Procedures Referred By Contac t Referred To Contact [facility] Diagnoses Cervical neck pain with evidence of disc disease Arm numbness left Numbness of face Procedures CONSULT TO PHYSICAL THERAPY PHYSICAL THERAPY EVALUATION HIGH COMPLEX 45 MINS Jannet Mitchell MD [address] [place] [address] [address] Reason Comments Information Reason Comments Medication Request Reason Comments New Patient Neck Pain Left-radiates to jaw Specialty Diagnoses / Procedures Referred By Contac t Referred To Contact Pain Management Diagnoses Cervical neck pain with evidence of disc disease Arm numbness left Numbness of face Procedures CONSULT TO PAIN MGT OFFICE/OUTPATIENT NEW HIGH MDM 60-74 MINUTES Jannet Mitchell MD [address] [place] [address] Gina Azevedo MD [address] [address] Referral ID Status Reason Start Date Expiration Date V isits Requested Visits Authorized [id number] Closed PCP Requested Referral 11/24/2022 11/24/2023 1 1 Reason Comments Injection Questions Reason Comments Nasal Congestion Cough Reason Comments Cough Reason Comments F/U 4 week Reason Comments Nose Bleed Reason Comments Chest Congestion sob, bodyaches and h eadache x 10-14 days Reason Comments Hospital F/U Reason Comments medication request Reason Onset Date Comments Refill Request 07/22/2023 Reason Onset Date Comments Refill Request - Pain 08/03/2022 Refill Request 07/25/2023 Reason Comments Insurance Authorization Care Teams (unrecognized sec tion and content) Tunnel Heading Inspector Relationship Specialty Start Date End Date Jannet Mitchell MD [address] [place] [id number] PCP - General 06/24/08 Tunnel Heading Inspector Relationship Specialty Start Date End Date Jannet Mitchell MD [address] [place] [id number] PCP - General 06/24/08 Tunnel Heading Inspector Relationship Specialty Start Date End Date Jannet Mitchell MD [address] [place] [id number] PCP - General 06/24/08 Tunnel Heading Inspector Relationship Specialty Start Date End Date Jannet Mitchell MD [address] [place] [id number] PCP - General 06/24/08 Tunnel Heading Inspector Relationship Specialty Start Date End Date Jannet Mitchell MD [address] [place] [id number] PCP - General 06/24/08 Tunnel Heading Inspector Relationship Specialty Start Date End Date Jannet Mitchell MD [address] [place] [id number] PCP - General 06/24/08 Tunnel Heading Inspector Relationship Specialty Start Date End Date Jannet Mitchell MD [address] [place] [address] PCP - General 06/24/08 Tunnel Heading Inspector Relationship Specialty Start Date End Date Jannet Mitchell MD [address] [place] [address], [place] [address] PCP - General 06/24/08 Tunnel Heading Inspector Relationship Specialty Start Date End Date Jannet Mitchell MD [address] [place] [address], [place] [address] PCP - General 06/24/08 Tunnel Heading Inspector Relationship Specialty Start Date End Date Jannet Mitchell MD [address] [place] [address], [place] [address] PCP - General 06/24/08 Tunnel Heading Inspector Relationship Specialty Start Date End Date Jannet iMtchell MD [address] [place] [address], [place] [address] PCP - General 06/24/08 Tunnel Heading Inspector Relationship Specialty Start Date End Date Jannet Mitchell MD [address] [place] [address], [place] [address] PCP - General 06/24/08 Tunnel Heading Inspector Relationship Specialty Start Date End Date Jannet Mitchell MD [address] [place] [address], [place] [address] PCP - General 06/24/08 Tunnel Heading Inspector Relationship Specialty Start Date End Date Jannet Mitchell MD [address] [place] [address], [place] [address] PCP - General 06/24/08 Tunnel Heading Inspector Relationship Specialty Start Date End Date Jannet Mitchell MD [address] [place] [address], [place] [address] PCP - General 06/24/08 Tunnel Heading Inspector Relationship Specialty Start Date End Date Jannet Mitchell MD [address] [place] [address] PCP - General 06/24/08 Tunnel Heading Inspector Relationship Specialty Start Date End Date Jannet Mitchell MD [address] [place] [address], [place] [address] PCP - General 06/24/08 Tunnel Heading Inspector Relationship Specialty Start Date End Date Jannet Mitchell MD [address] [place] [address], [place] [address] PCP - General 06/24/08 Tunnel Heading Inspector Relationship Specialty Start Date End Date Jannet Mitchell MD [address] [place] [address], [place] [address] PCP - General 06/24/08 Tunnel Heading Inspector Relationship Specialty Start Date End Date Jannet Mitchell MD [address] [place] [address], [place] [address] PCP - General 06/24/08 Tunnel Heading Inspector Relationship Specialty Start Date End Date Jannet Mitchell MD [address] [place] [address], [place] [address] PCP - General 06/24/08 Tunnel Heading Inspector Relationship Specialty Start Date End Date Jannet Mitchell MD [address] [place] [address], [place] [address] PCP - General 06/24/08 Tunnel Heading Inspector Relationship Specialty Start Date End Date Jannet Mitchell MD [address] [place] [address], [place] [address] PCP - General 06/24/08 Tunnel Heading Inspector Relationship Specialty Start Date End Date Jannet Mitchell MD [address] [place] [address], [place] [address] PCP - General 06/24/08 Tunnel Heading Inspector Relationship Specialty Start Date End Date Jannet Mitchell MD [facility] [place] [address] PCP - General 06/24/08 Tunnel Heading Inspector Relationship Specialty Start Date End Date Jannet Mitchell MD [address] [place] [address], [place] [address] PCP - General 06/24/08 Tunnel Heading Inspector Relationship Specialty Start Date End Date Jannet Mitchell MD [address] [place] [address], [place] [address] PCP - General 06/24/08 Tunnel Heading Inspector Relationship Specialty Start Date End Date Jannet Mitchell MD [address] [place] [address], [place] [address] PCP - General 06/24/08 Tunnel Heading Inspector Relationship Specialty Start Date End Date Jannet Mitchell MD [address] [place] [address], [place] [address] PCP - General 06/24/08 Tunnel Heading Inspector Relationship Specialty Start Date End Date Jannet Mitchell MD [address] [place] [address], [place] [address] PCP - General 06/24/08 Tunnel Heading Inspector Relationship Specialty Start Date End Date Jannet Mitchell MD [address] [place] [address], [place] [address] PCP - General 06/24/08 Tunnel Heading Inspector Relationship Specialty Start Date End Date Jannet Mitchell MD [address] [place] [address], [place] [address] PCP - General 06/24/08 Tunnel Heading Inspector Relationship Specialty Start Date End Date Jannet Mitchell MD [address] [place] [address], [place] [address] PCP - General 06/24/08 Tunnel Heading Inspector Relationship Specialty Start Date End Date Jannet Mitchell MD [address] [place] [address] PCP - General 06/24/08 Tunnel Heading Inspector Relationship Specialty Start Date End Date Jannet Mitchell MD [address] [place] [address] PCP - General 06/24/08 Tunnel Heading Inspector Relationship Specialty Start Date End Date Jannet Mitchell MD [address] [place] [address] PCP - General 06/24/08 Tunnel Heading Inspector Relationship Specialty Start Date End Date Jannet Mitchell MD [address] [place] [address] PCP - General 06/24/08 Tunnel Heading Inspector Relationship Specialty Start Date End Date Jannet Mitchell MD [address] [place] [address] PCP - General 06/24/08 Tunnel Heading Inspector Relationship Specialty Start Date End Date Jannet Mitchell MD [address] [place] [address] PCP - General 06/24/08 Tunnel Heading Inspector Relationship Specialty Start Date End Date Jannet Mitchell MD [address] [place] [address] PCP - General 06/24/08 Tunnel Heading Inspector Relationship Specialty Start Date End Date Jannet Mitchell MD [address] [place] [address] PCP - General 06/24/08 Tunnel Heading Inspector Relationship Specialty Start Date End Date Jannet Mitchell MD [address] [place] [address] PCP - General 06/24/08 Tunnel Heading Inspector Relationship Specialty Start Date End Date Jannet Mitchell MD [address] [place] [address] PCP - General 06/24/08 Tunnel Heading Inspector Relationship Specialty Start Date End Date Jannet Mitchell MD [address] [place] [address] PCP - General 06/24/08 Tunnel Heading Inspector Relationship Specialty Start Date End Date Jannet Mitchell MD [address] [place] [address] PCP - General 06/24/08 Tunnel Heading Inspector Relationship Specialty Start Date End Date Jannet Mitchell MD [address] [place] [address] PCP - General 06/24/08 Tunnel Heading Inspector Relationship Specialty Start Date End Date Jannet Mitchell MD [address] [place] [address] PCP - General 06/24/08 Tunnel Heading Inspector Relationship Specialty Start Date End Date Jannet Mitchell MD [address] [place] [address] PCP - General 06/24/08 Tunnel Heading Inspector Relationship Specialty Start Date End Date Jannet Mitchell MD [address] [place] [address] PCP - General 06/24/08 Tunnel Heading Inspector Relationship Specialty Start Date End Date Jannet Mitchell MD [address] [place] [address] PCP - General 06/24/08 FOR RECORDS PERTAINING TO PATIENTS WHO ARE OR HAVE BEEN ENROLLED IN A CHEMICAL DEPENDENCY/SUBSTANCEABUSE PROGRAM, SOME INFORMATION MAY BE OMITTED. This clinical summary was aggregated from multiple sources. Caution should be exercised in using it in the provision of clinical care. This summary normalizes information from multiple sources, and as a consequence, information in this document may materially change the coding, format and clinical context of patient data. In addition, data may be omitted in some cases. CLINICAL DECISIONS SHOULD BE BASED ON THE PRIMARY CLINICAL RECORDS. [facility] [address] [facility]. provides no warranty or guarantee of the accuracy or completeness of information in this document.
== END | disposition home or self-care (01) ==
LOC: MRI 12:13
PROVIDERS: PCP Internal Medicine; Referring Provider Podiatrist Foot & Ankle Surgery; Visit Provider Podiatrist Foot & Ankle Surgery
DX: M86.9 Osteomyelitis, unspecified (principal)
CPT/HCPCS: 73718

== ENCOUNTER 2024-05-26 21:45 | Emergency (ER) | payer MEDICARE, SELFPAY ==
[2024-05-26 21:47] VITALS: BP 121/99; PULSE 102; RESP 18; TEMP 36.8; O2SAT 94
--- NOTE | 2024-05-26 22:28 | EX.ED.DYSGE1 ---
HPI History of Present Illness Chief Complaint: General Illness Informant: patient and family Narrative Narrative: Patient is a 3-year-old female with past medical history of IBS anxiety and GERD. She states for the last day and a half she has been having recurrent bouts of nausea and vomiting. She states she is also had diarrhea with this. She states that she recently was on Cipro for a UTI as well. She is unsure if the Cipro created her GI upset or if something else is going on. She also is unsure if her urinary tract infection is completely resolved. As she is not unable to hold down food or fluids and has concern for persistent infection she presents for evaluation. [facility] Medical History GI bleed Wears glasses Wears partial dentures Non-smoker Abdominal bloating Diverticulosis Acute depression Acute gastritis Nausea IBS (irritable bowel syndrome) Wears dentures Former smoker Leg cramps Leg edema Gastroesophageal reflux disease Hemorrhoids Chronic constipation Diarrhea Abdominal pain GERD (gastroesophageal reflux disease) Anxiety History of bronchitis Asthma Home Medications ?Medication ?Instructions ?Recorded ?Last Taken ?Type trazodone 100 mg tablet 50 - 100 mg PO QHS sleep 04/21/19 11/11/22 History gabapentin 300 mg capsule 300 - 600 mg PO DAILY 08/19/22 11/11/22 History buspirone 5 mg tablet 5 mg PO BID #60 tabs 08/25/23 Unknown Rx dicyclomine 20 mg tablet 20 mg PO TID 02/23/24 Unknown History omeprazole 20 mg capsule,delayed 20 mg PO QDAY 02/23/24 Unknown History release budesonide 3 mg 3 mg PO QAM #30 ea 02/28/24 Unknown Rx capsule,delayed,extended release hyoscyamine sulfate 0.125 mg tablet 0.125 mg PO BID dyspepsia #60 tabs 03/02/24 Unknown Rx prednisone 20 mg tablet 20 mg PO QDAY #7 tabs 03/02/24 Unknown Rx diphenoxylate-atropine 2.5 1 tab PO 4X/DAY PRN diarrhea 5 05/27/24 Unknown Rx mg-0.025 mg tablet (Lomotil) days #20 tabs ondansetron 4 mg disintegrating 4 mg PO TID PRN nausea and 05/27/24 Unknown Rx tablet vomiting #21 tabs vancomycin 125 mg capsule 125 mg PO 4X/DAY 10 days #40 caps 05/27/24 Unknown Rx Allergy/AdvReac Type Severity Reaction Status Date / Time cephalexin Allergy Intermediate Other Verified 05/26/24 21:49 nitrofurantoin (From Allergy Intermediate Other Verified 05/26/24 21:49 Macrobid) prednisone Allergy Intermediate Other Verified 05/26/24 21:49 Sulfa (Sulfonamide Allergy Intermediate Other Verified 05/26/24 21:49 Antibiotics) erythromycin base (From Allergy Nausea Verified 05/26/24 21:49 E-Mycin) Penicillins Allergy Vomiting Verified 05/26/24 21:49 Family History Father , 57 Heart disease Myocardial infarction Mother Alzheimer disease Surgical History History of appendectomy History of colonoscopy (~2010) History of esophagogastroduodenoscopy (EGD) (~2013) History of breast implant removal History of breast implant History of hysterectomy with oophorectomy History of cholecystectomy History of tonsillectomy and adenoidectomy Social History Smoking Status: Former smoker alcohol intake: never substance use type: does not use ROS ROS ED Constitutional Constitutional ED: Denies chills or fever(s) Eyes Eyes: Denies change in vision ENT ENT ED: Denies sore throat Cardiovascular Cardiovascular: Denies chest pain Respiratory/Chest Respiratory/Chest: Denies cough or dyspnea Gastrointestinal Gastrointestinal: Reports abdominal pain, diarrhea, nausea and vomiting Genitourinary Genitourinary ED: Reports dysuria Musculoskeletal Musculoskeletal: Denies myalgias Integumentary Denies rash Neurologic Neurologic: Denies headache(s) Psychiatric Psychiatric: Reports anxiety Hematologic/Lymphatic Hematologic/Lymphatic: Denies easy bleeding or easy bruising EXAM Physical Exam Const Vital Signs: 05/26/24 21:47 05/26/24 23:06 05/26/24 23:06 Temperature 98.2 F 97.9 F Temperature Source Oral Temporal Pulse Rate 102 H 91 Respiratory Rate 18 20 H Respiratory Effort Normal Non-Labored Respiratory Pattern Normal Blood Pressure 121/99 H 130/67 H Blood Pressure Mean 106 88 Pulse Ox 94 97 Oxygen Delivery Method Room Air Room Air Positive well nourished and well developed General Appearance ED: well developed; Negative for pallor HEENT Reports dry mucous membranes HEENT Narrative: Mucous membranes are dry and tacky No tongue or lip swelling no oral lesions no airway edema or compromise No secondary findings in the posterior pharynx to suggest infection Mouth ED: Yes dry mucous membranes Mouth: dry mucous membranes Eyes PERRL and EOMs intact bilaterally General Eye ED: Negative for scleral icterus Neck supple Neck Narrative: No nuchal rigidity or meningeal signs noted Resp normal respiratory effort and clear to auscultation bilaterally Cardio regular rhythm Rate: tachycardic and other Other Details: Slightly tachycardic rate with regular rhythm Radial and carotid pulses are equal and symmetric GI non-distended and no masses GI Narrative: Abdomen is soft and nondistended with hyperactive bowel sounds. There is mild diffuse pain on palpation without voluntary guarding or rigidity or pulsatile mass No peritoneal signs or fluid wave noted Auscultation: hyperactive bowel sounds Palpation: soft Extremity normal to inspection Neuro oriented x3, CN's II-XII intact bilaterally and no sensory deficits noted Sensorium / Orientation: alert Motor Exam: strength 5/5 throughout Psych Mood & Affect: anxious Skin no rashes or lesions noted and No skin turgor normal Skin Narrative: Skin turgor is increased consistent with mild dehydration General Skin Exam: Negative for jaundice or pallor MDM MDM MDM Narrative Medical decision making narrative: Patient arrived to the ER with stable vitals and a soft nonsurgical abdomen. She reported increased nausea vomiting diarrhea. Concern for underlying abdominal infection such as diverticulitis or colitis pancreatitis or biliary colic/acute cholecystitis is low. Therefore I felt no need for abdominal CT. As the patient was recently treated for a UTI there is concern she has a retained infection so urine sample was ordered and there is also concern for potential urosepsis acute kidney injury or severe electro abnormality based on her dehydration status. Labs showed just mild elevation to her white but otherwise no signs of ORLIN or severe electrolyte abnormality. She reports she has had diarrhea for quite some time just that it has been worse recently. This could be related to viral stomach infection such as the [place] or rotavirus. But as she has recently been on antibiotics there is concern for C. difficile. The C. difficile was antigen positive but toxin negative most likely indicating colonization but as she has had increased diarrhea I will place her on a short round of oral vancomycin to potentially cover for developing C. difficile infection that has not produced enough toxin to trigger a positive test. However at this time she is not uroseptic she is not have ORLIN she does not have severe electrolyte abnormality and she has been rehydrated and vitals are stable and therefore she is otherwise safe for discharge. History & Record Review Discussion w/independent historian: Patient, Family and Friend Lab Data Attestation: I reviewed the patient's lab results. Labs: Laboratory Results - last 24 hr 05/26/24 05/27/24 22:49 00:05 WBC 11.7 H RBC 4.34 Hgb 13.8 Hct 41.2 MCV 94.9 MCH 31.8 MCHC 33.5 RDW Std Deviation 45.7 H RDW Coeff of Ester 13.0 Plt Count 155 MPV 8.4 Immature Gran % (Auto) 0.400 Neut % (Auto) 82.0 H Lymph % (Auto) 6.9 L Bryan % (Auto) 10.2 H Eos % (Auto) 0.3 Baso % (Auto) 0.2 Absolute Neuts (auto) 9.6 H Absolute Lymphs (auto) 0.81 L Nucleated RBC % 0 Sodium 132 L Potassium 3.6 Chloride 97 L Carbon Dioxide 26.0 Anion Gap 9 BUN 23 H Creatinine 0.94 Est GFR (MDRD) Af Amer 73 Est GFR (MDRD) Non-Af 60 BUN/Creatinine Ratio 24.5 H Glucose 96 Calcium 8.3 L Magnesium 1.9 Total Bilirubin 0.70 Direct Bilirubin 0.21 AST 56 H ALT 56 Alkaline Phosphatase 67 Total Protein 7.2 Albumin 3.7 Globulin 3.5 Lipase 16 Urine Color Yellow Urine Clarity Clear Urine pH 6.0 Ur Specific [place] 1.015 Urine Protein 15 H Urine Glucose (UA) Normal Urine Ketones 50 H Urine Occult Blood 150 H Urine Nitrite Positive H Urine Bilirubin Negative Urine Urobilinogen Normal Ur Leukocyte Esterase Negative Urine RBC 0 SEEN Urine WBC 0 SEEN Ur Squamous Epith Cells 0 SEEN Urine Bacteria RARE Urine Mucus 0 SEEN Discharge Plan Triage Chief Complaint: General Illness ED Provider: Rudy Polanco Dx/Rx/DC Orders Clinical Impression: Nausea vomiting and diarrhea, Dehydration, Clostridium difficile diarrhea, Anxiety Instructions: Clostridium Difficile Infection, ED Dehydration (Adult), ED Gastroenteritis, Viral (Adult) Prescriptions: New diphenoxylate-atropine [Lomotil] 2.5-0.025 mg tablet 1 tab PO 4X/DAY PRN (Reason: diarrhea) 5 Days Qty: 20 0RF ondansetron 4 mg tablet,disintegrating 4 mg PO TID PRN (Reason: nausea and vomiting) Qty: 21 0RF vancomycin 125 mg capsule 125 mg PO 4X/DAY 10 Days Qty: 40 0RF No Action buspirone 5 mg tablet 5 mg PO BID Qty: 60 3RF dicyclomine 20 mg tablet 20 mg PO TID omeprazole 20 mg capsule,delayed release(DR/EC) 20 mg PO QDAY trazodone 100 MG tablet 50 - 100 mg PO QHS gabapentin 300 mg capsule 300 - 600 mg PO DAILY budesonide 3 mg capsule,delayed,extend.release 3 mg PO QAM Qty: 30 1RF Rx Instructions: Updated Dx Codes prednisone 20 mg tablet 20 mg PO QDAY Qty: 7 0RF hyoscyamine sulfate 0.125 mg tablet 0.125 mg PO BID Qty: 60 2RF Primary Care Provider: Qian Colindres Referrals: Qian Colindres MD [Primary Care Provider] - Activity Restrictions/Additional Instructions: Your history and exam and workup is most consistent with a viral stomach infection such as norovirus or rotavirus. This will last anywhere from 1 to 7 days with 3 days being the average. Take the Zofran to help control any events of nausea and vomiting and keep yourself well-hydrated. Your testing for C. difficile was positive but you are most likely a carrier. However as your diarrhea has worsened recently there is concern you have developed a true C. difficile infection and therefore take the vancomycin as directed to help resolve this. Return to the ER should you have any further concern Print Language: Occitan Disposition Disposition: Home, Self Care
[2024-05-26 22:57] LABS: Absolute Lymphocyte Count 0.81 X10^3/uL (0.83-4.51); Absolute Neutrophil Count 9.6 X10^3/uL (2.0-7.7); Basophil# 0.02 X10^3/uL; Basophil% 0.2 % (0-1); Eosinophil# 0.03 X10^3/uL; Eosinophils% 0.3 % (0-5); Hematocrit 41.2 % (37-47); Hemoglobin 13.8 g/dL (12.0-15.0); Lymphocyte # 0.81 X10^3/ul (0.83-4.51); Lymphocyte % 6.9 % (19-41); Mean Corp Hgb Conc 33.5 g/dL (32-36); Mean Corpuscular Hgb 31.8 pg (27.0-32.0); Mean Corpuscular Volume 94.9 fL (81-99); Mean Platelet Vol. 8.4 fl (6.2-12.0); Monocyte# 1.19 X10^3/uL; Monocyte% 10.2 % (0-10); NRBC Flagged by Analyzer 0 % (0-5); Neutrophil # 9.61 X10^3/uL (2.7-7.7); Platelet Count 155 K/mm3 (150-450); RBC Distribution Width SD 45.7 fl (35.1-43.9); Red Blood Count 4.34 M/mm3 (4.2-5.4); White Blood Count 11.7 K/mm3 (4.4-11.0)
[2024-05-26 23:06] VITALS: BP 130/67; PULSE 91; RESP 20; TEMP 36.6; O2SAT 97
[2024-05-26 23:14] LABS: AST(SGOT) 56 U/L (15-37); Alanine Aminotransfer ALT/SGPT 56 U/L (13-56); Albumin, Serum 3.7 g/dL (3.2-5.0); Alkaline Phosphatase 67 U/L (45-117); Anion Gap 9 (5-15); BUN 23 mg/dL (7-18); BUN/Creat Ratio 24.5 RATIO (10-20); Bilirubin, Direct 0.21 mg/dL (0.00-0.30); Calcium,Total 8.3 mg/dL (8.5-10.1); Chloride 97 mmol/L (98-107); Creatinine, Serum 0.94 mg/dL (0.55-1.02); EST Glomerular Filtration Rate 60 mL/min (>60); Est Glom Filt Rate - Afr Amer 73 mL/min (>60); Globulin 3.5 g/dL (2.2-4.2); Glucose 96 mg/dL (74-106); Lipase 16 U/L (13-75); Magnesium 1.9 mg/dL (1.6-2.6); Potassium 3.6 mmol/L (3.5-5.1); Protein, Total 7.2 g/dL (6.4-8.2); Sodium Level 132 mmol/L (136-145)
[2024-05-26] MEDS: 0.9% Normal Saline (1000mL) 1,000 ML 999 ML IV (23:22)
[2024-05-26] MEDS: Ondansetron 4 MG/2 ML Vial IV (23:22)
--- NOTE | 2024-05-26 23:52 | ED.RN ---
Doctor approved discontinuing cardiac monitoring due to stable vitals and lab work.
[2024-05-27] MEDS: Diphenoxylate/Atrop 1 Tablet 2 TABLET PO (00:02)
[2024-05-27 00:15] LABS: Mucous, Urine 0 SEEN /hpf (<or=2+); Red Blood Cells-Urine 0 SEEN /hpf (0-5); Squamous Epithelial Cells - UA 0 SEEN /hpf (5-10); White Blood Cells 0 SEEN /hpf (0-5)
[2024-05-27 00:17] LABS: Color, Urine Yellow (Yellow); Glucose, Dipstick Normal (Normal); Ketone-Dipstick 50 mg/dl (Negative); Leukocyte Esterase-Dipstick Negative /ul (Negative); Nitrite-Dipstick Positive (Negative); Occult Blood-Urine 150 /ul (Negative); Protein-Dipstick 15 mg/dl (Negative); Specific Gravity, Urine 1.015 (1.002-1.030); Urine Bilirubin Dipstick Negative (Negative); Urine Clarity Clear (Clear); Urine Urobilinogen Normal (Normal)
[2024-05-27 00:28] LABS: Bacteria RARE /hpf (None Seen)
[2024-05-27] MEDS: Vancomycin 125 MG/5 ML Susp PO.SYRINGE PO (01:09)
[2024-05-27 01:14] VITALS: BP 139/67; PULSE 81; RESP 18; TEMP 37.1; O2SAT 97
== END 2024-05-27 01:15 | disposition home or self-care (01) ==
PROVIDERS: Emergency Provider Emergency Medicine; PCP Internal Medicine; Visit Provider Emergency Medicine
DX: A04.72 Enterocolitis due to Clostridium difficile, not specified as recurrent (principal); K58.9 Irritable bowel syndrome, unspecified; F41.9 Anxiety disorder, unspecified; K21.9 Gastro-esophageal reflux disease without esophagitis; F32.A Depression, unspecified; E86.0 Dehydration; Z88.0 Allergy status to penicillin; Z88.2 Allergy status to sulfonamides; Z88.1 Allergy status to other antibiotic agents; Z90.49 Acquired absence of other specified parts of digestive tract; Z87.19 Personal history of other diseases of the digestive system; Z87.440 Personal history of urinary (tract) infections; Z79.899 Other long term (current) drug therapy; Z87.891 Personal history of nicotine dependence
CPT/HCPCS: 80048; 80076; 81001; 83630; 83690; 83735; 85025; 87077; 87086; 87088; 87177; 87186; 87209; 87493; 87506; 96361; 96374; 99283; A4216; J2405

== ENCOUNTER 2024-05-29 11:01 | Inpatient (IN) | payer MEDICARE, SELFPAY ==
[2024-05-29 11:02] VITALS: BP 152/88; PULSE 93; RESP 16; TEMP 36.1; O2SAT 98; BMI 19.8
--- NOTE | 2024-05-29 11:32 | CT_ITS ---
HISTORY: Abdominal pain. TECHNIQUE: Helically acquired images were obtained of the abdomen and pelvis after the intravenous administration of 100 mL Isovue-370. A radiation dose optimization technique was used for this scan. 363 images. COMPARISON: 04/25/2023. FINDINGS: LOWER CHEST: Calcified left lower lobe granuloma. Breast implants again seen. BOWEL: Bowel nondilated. Appendix not visualized. Mild fluid in the small bowel and colon. Mild sigmoid wall edema. Colonic diverticulosis without focal inflammatory change observed. PERITONEUM: No significant ascites. LIVER: No enhancing mass. GALLBLADDER/BILIARY TREE: Cholecystectomy. SPLEEN/PANCREAS/ADRENAL GLANDS: Calcified splenic granulomas. Homogeneous and nonenlarged. KIDNEYS: No hydronephrosis. Subcentimeter cysts; follow-up not indicated. VESSELS: No abdominal aortic aneurysm. Mild atherosclerosis. PELVIC ORGANS: Absent uterus. BONES: Chronic degenerative endplate changes in the spine. CT/Abdomen/Pelvis W IV Cont ONLY IMPRESSION: Mild fluid distention of bowel and mild sigmoid mural edema, suggesting mild enterocolitis. Colonic diverticulosis without acute diverticulitis. Electronically Signed: Ness Mendieta MD at 13:12 EST ,
[2024-05-29 11:41] LABS: Absolute Lymphocyte Count 1.18 X10^3/uL (0.83-4.51); Absolute Neutrophil Count 4.6 X10^3/uL (2.0-7.7); Basophil# 0.03 X10^3/uL; Basophil% 0.4 % (0-1); Eosinophil# 0.08 X10^3/uL; Eosinophils% 1.2 % (0-5); Hematocrit 42.3 % (37-47); Hemoglobin 14.5 g/dL (12.0-15.0); Lymphocyte # 1.18 X10^3/ul (0.83-4.51); Lymphocyte % 17.7 % (19-41); Mean Corp Hgb Conc 34.3 g/dL (32-36); Mean Corpuscular Volume 93.4 fL (81-99); Mean Platelet Vol. 8.6 fl (6.2-12.0); Monocyte# 0.78 X10^3/uL; Monocyte% 11.7 % (0-10); NRBC Flagged by Analyzer 0 % (0-5); Neutrophil # 4.58 X10^3/uL (2.7-7.7); Neutrophil % 68.7 % (47-70); Platelet Count 150 K/mm3 (150-450); RBC Distribution Width CV 12.8 % (11.6-14.6); RBC Distribution Width SD 43.8 fl (35.1-43.9); Red Blood Count 4.53 M/mm3 (4.2-5.4); White Blood Count 6.7 K/mm3 (4.4-11.0)
--- NOTE | 2024-05-29 11:42 | EDS_ITS ---
HPI History of Present Illness Chief Complaint: Nausea/Vomiting/Diarrhea Narrative Narrative: Chief complaint and HPI: Nausea, vomiting, diarrhea. 83-year-old female with past medical history of asthma, GERD, IBS presents for evaluation of nausea, vomiting, diarrhea. History taken by patient as well as medical record. Patient states for the last several days she has been having nausea, vomiting, diarrhea. Associated symptom is diffuse abdominal pain. Patient endorses nonbloody emesis and diarrhea. States she is having multiple episodes a day. Little p.o. intake. States she is lost 10 pounds in 2 weeks. Patient was seen in our emergency department on 05/26/2024. At that time she had a laboratory workup that showed mild dehydration. It was CT abdomen pelvis obtained at that time. She did have stool testing performed that was positive for rotavirus. She also was positive for C. difficile antigen but negative for toxin. UA was positive for UTI with nitrites. Patient was ultimately discharged home on p.o. vancomycin for suspected C. difficile infection as well as Zofran and Lomotil. Patient states she has been taking her vancomycin without any improvement in symptoms. Review of systems: See HPI Medications: As listed on the chart Allergies: As listed on the chart PFSH: Per chart Vital signs: As listed on the chart. Reviewed. Physical exam: Gen: A&O x3, NAD Head: Normocephalic, atraumatic Eyes: No sclera icterus, conjunctiva clear ENT: Dry mucous membranes Neck: Trachea midline, No JVD CV: RRR, no murmurs, no peripheral edema Resp: Lungs CTA BL, no w/r/c GI: Abd soft, non-distended, diffusely tender to palpation, no r/r/g : No CVA tenderness Musc: Full ROM, no deformity Skin: Warm, dry Neuro: Alert, oriented, grossly intact, sensation intact Psych: Cooperative, appropriate mood and affect [facility] Medical History GI bleed Wears glasses Wears partial dentures Non-smoker Abdominal bloating Diverticulosis Acute depression Acute gastritis Nausea IBS (irritable bowel syndrome) Wears dentures Former smoker Leg cramps Leg edema Gastroesophageal reflux disease Hemorrhoids Chronic constipation Diarrhea Abdominal pain GERD (gastroesophageal reflux disease) Anxiety History of bronchitis Asthma Home Medications ?Medication ?Instructions ?Recorded ?Last Taken ?Type trazodone 100 mg tablet 50 - 100 mg PO QHS sleep 04/21/19 11/11/22 History gabapentin 300 mg capsule 300 - 600 mg PO DAILY 08/19/22 11/11/22 History buspirone 5 mg tablet 5 mg PO BID #60 tabs 08/25/23 Unknown Rx dicyclomine 20 mg tablet 20 mg PO TID 02/23/24 Unknown History omeprazole 20 mg capsule,delayed 20 mg PO QDAY 02/23/24 Unknown History release budesonide 3 mg 3 mg PO QAM #30 ea 02/28/24 Unknown Rx capsule,delayed,extended release hyoscyamine sulfate 0.125 mg tablet 0.125 mg PO BID dyspepsia #60 tabs 03/02/24 Unknown Rx prednisone 20 mg tablet 20 mg PO QDAY #7 tabs 03/02/24 Unknown Rx diphenoxylate-atropine 2.5 1 tab PO 4X/DAY PRN diarrhea 5 05/27/24 Unknown Rx mg-0.025 mg tablet (Lomotil) days #20 tabs ondansetron 4 mg disintegrating 4 mg PO TID PRN nausea and 05/27/24 Unknown Rx tablet vomiting #21 tabs vancomycin 125 mg capsule 125 mg PO 4X/DAY 10 days #40 caps 05/27/24 Unknown Rx Allergy/AdvReac Type Severity Reaction Status Date / Time cephalexin Allergy Intermediate Other Verified 05/29/24 11:05 nitrofurantoin (From Allergy Intermediate Other Verified 05/29/24 11:05 Macrobid) prednisone Allergy Intermediate Other Verified 05/29/24 11:05 Sulfa (Sulfonamide Allergy Intermediate Other Verified 05/29/24 11:05 Antibiotics) erythromycin base (From Allergy Nausea Verified 05/29/24 11:05 E-Mycin) Penicillins Allergy Vomiting Verified 05/29/24 11:05 Family History Father , 57 Heart disease Myocardial infarction Mother Alzheimer disease Surgical History History of appendectomy History of colonoscopy (~2010) History of esophagogastroduodenoscopy (EGD) (~2013) History of breast implant removal History of breast implant History of hysterectomy with oophorectomy History of cholecystectomy History of tonsillectomy and adenoidectomy Social History Smoking Status: Former smoker alcohol intake: never substance use type: does not use EXAM Physical Exam Const Vital Signs: 05/29/24 11:02 Temperature 96.9 F L Temperature Source Axillary Pulse Rate 93 Respiratory Rate 16 Blood Pressure 152/88 H Blood Pressure Mean 109 Pulse Ox 98 Oxygen Delivery Method Room Air MDM MDM MDM Narrative Medical decision making narrative: 83-year-old female with past medical history of asthma, GERD, IBS presents for evaluation of nausea, vomiting, diarrhea. Differential diagnosis includes but is not limited to symptomatic rotavirus, C. difficile infection, electrolyte abnormality, ORLIN, UTI, intra-abdominal pathology such as diverticulitis/colitis. NS bolus, morphine, Zofran ordered for symptoms. Laboratory workup ordered including CT abdomen and pelvis. Will repeat stool studies. Lab Data Labs: Laboratory Results - last 24 hr 05/29/24 11:13 WBC 6.7 RBC 4.53 Hgb 14.5 Hct 42.3 MCV 93.4 MCH 32.0 MCHC 34.3 RDW Std Deviation 43.8 RDW Coeff of Ester 12.8 Plt Count 150 MPV 8.6 Immature Gran % (Auto) 0.300 Neut % (Auto) 68.7 Lymph % (Auto) 17.7 L [place] % (Auto) 11.7 H Eos % (Auto) 1.2 Baso % (Auto) 0.4 Absolute Neuts (auto) 4.6 Absolute Lymphs (auto) 1.18 Nucleated RBC % 0 Discharge Plan Triage Chief Complaint: Nausea/Vomiting/Diarrhea ED Provider: Nain Chino Dx/Rx/DC Orders Prescriptions: No Action buspirone 5 mg tablet 5 mg PO BID Qty: 60 3RF dicyclomine 20 mg tablet 20 mg PO TID omeprazole 20 mg capsule,delayed release(DR/EC) 20 mg PO QDAY trazodone 100 MG tablet 50 - 100 mg PO QHS gabapentin 300 mg capsule 300 - 600 mg PO DAILY diphenoxylate-atropine [Lomotil] 2.5-0.025 mg tablet 1 tab PO 4X/DAY PRN (Reason: diarrhea) 5 Days Qty: 20 0RF ondansetron 4 mg tablet,disintegrating 4 mg PO TID PRN (Reason: nausea and vomiting) Qty: 21 0RF vancomycin 125 mg capsule 125 mg PO 4X/DAY 10 Days Qty: 40 0RF budesonide 3 mg capsule,delayed,extend.release 3 mg PO QAM Qty: 30 1RF Rx Instructions: Updated Dx Codes prednisone 20 mg tablet 20 mg PO QDAY Qty: 7 0RF hyoscyamine sulfate 0.125 mg tablet 0.125 mg PO BID Qty: 60 2RF Primary Care Provider: Qian Colindres Referrals: Qian Colindres MD [Primary Care Provider] - Print Language: Gambian
--- NOTE | 2024-05-29 11:42 | EX.ED.GENINJ ---
HPI History of Present Illness Chief Complaint: Nausea/Vomiting/Diarrhea Narrative Narrative: Chief complaint and HPI: Nausea, vomiting, diarrhea. 83-year-old female with past medical history of asthma, GERD, IBS presents for evaluation of nausea, vomiting, diarrhea. History taken by patient as well as medical record. Patient states for the last several days she has been having nausea, vomiting, diarrhea. Associated symptom is diffuse abdominal pain. Patient endorses nonbloody emesis and diarrhea. States she is having multiple episodes a day. Little p.o. intake. States she is lost 10 pounds in 2 weeks. Patient was seen in our emergency department on 05/26/2024. At that time she had a laboratory workup that showed mild dehydration. It was CT abdomen pelvis obtained at that time. She did have stool testing performed that was positive for rotavirus. She also was positive for C. difficile antigen but negative for toxin. UA was positive for UTI with nitrites. Patient was ultimately discharged home on p.o. vancomycin for suspected C. difficile infection as well as Zofran and Lomotil. Patient states she has been taking her vancomycin without any improvement in symptoms. Review of systems: See HPI Medications: As listed on the chart Allergies: As listed on the chart PFSH: Per chart Vital signs: As listed on the chart. Reviewed. Physical exam: Gen: A&O x3, NAD Head: Normocephalic, atraumatic Eyes: No sclera icterus, conjunctiva clear ENT: Dry mucous membranes Neck: Trachea midline, No JVD CV: RRR, no murmurs, no peripheral edema Resp: Lungs CTA BL, no w/r/c GI: Abd soft, non-distended, diffusely tender to palpation, no r/r/g : No CVA tenderness Musc: Full ROM, no deformity Skin: Warm, dry Neuro: Alert, oriented, grossly intact, sensation intact Psych: Cooperative, appropriate mood and affect [facility] Medical History CKD (chronic kidney disease), stage II Anxiety GI bleed Wears glasses Wears partial dentures Non-smoker Diverticulosis Acute depression Acute gastritis Nausea IBS (irritable bowel syndrome) Wears dentures Former smoker Gastroesophageal reflux disease Chronic constipation Diarrhea GERD (gastroesophageal reflux disease) Anxiety History of bronchitis Asthma Home Medications ?Medication ?Instructions ?Recorded ?Last Taken ?Type trazodone 100 mg tablet 50 - 100 mg PO QHS sleep 04/21/19 05/28/24 History gabapentin 300 mg capsule 300 - 600 mg PO DAILY 08/19/22 05/28/24 History buspirone 5 mg tablet 5 mg PO BID #60 tabs 08/25/23 05/28/24 Rx dicyclomine 20 mg tablet 20 mg PO TID 02/23/24 05/29/24 History omeprazole 20 mg capsule,delayed 20 mg PO QDAY 02/23/24 Unknown History release budesonide 3 mg 3 mg PO QAM #30 ea 02/28/24 05/29/24 Rx capsule,delayed,extended release hyoscyamine sulfate 0.125 mg tablet 0.125 mg PO BID dyspepsia #60 tabs 03/02/24 Unknown Rx diphenoxylate-atropine 2.5 1 tab PO 4X/DAY PRN diarrhea 5 05/27/24 Unknown Rx mg-0.025 mg tablet (Lomotil) days #20 tabs ondansetron 4 mg disintegrating 4 mg PO TID PRN nausea and 05/27/24 Unknown Rx tablet vomiting #21 tabs vancomycin 125 mg capsule 125 mg PO 4X/DAY 10 days #40 caps 05/27/24 Unknown Rx Allergy/AdvReac Type Severity Reaction Status Date / Time cephalexin Allergy Intermediate Other Verified 05/29/24 11:05 nitrofurantoin (From Allergy Intermediate Other Verified 05/29/24 11:05 Macrobid) prednisone Allergy Intermediate Other Verified 05/29/24 11:05 Sulfa (Sulfonamide Allergy Intermediate Other Verified 05/29/24 11:05 Antibiotics) erythromycin base (From Allergy Nausea Verified 05/29/24 11:05 E-Mycin) Penicillins Allergy Vomiting Verified 05/29/24 11:05 Family History Father , 57 Heart disease Myocardial infarction Mother Alzheimer disease Surgical History History of appendectomy History of colonoscopy (~2010) History of esophagogastroduodenoscopy (EGD) (~2013) History of breast implant removal History of breast implant History of hysterectomy with oophorectomy History of cholecystectomy History of tonsillectomy and adenoidectomy Social History household members: none Smoking Status: Former smoker alcohol intake: never substance use type: does not use EXAM Physical Exam Const Vital Signs: 05/29/24 11:02 05/29/24 12:04 05/29/24 13:02 Temperature 96.9 F L 98.2 F Temperature Source Axillary Oral Pulse Rate 93 90 78 Respiratory Rate 16 22 H 19 H Blood Pressure 152/88 H 132/61 H 121/78 H Blood Pressure Mean 109 84 92 Pulse Ox 98 95 98 Oxygen Delivery Method Room Air Room Air Room Air 05/29/24 13:29 Temperature 98 F Temperature Source Pulse Rate 86 Respiratory Rate 22 H Blood Pressure 103/83 H Blood Pressure Mean 89 Pulse Ox 97 Oxygen Delivery Method MDM MDM MDM Narrative Medical decision making narrative: 83-year-old female with past medical history of asthma, GERD, IBS presents for evaluation of nausea, vomiting, diarrhea. Differential diagnosis includes but is not limited to symptomatic rotavirus, C. difficile infection, electrolyte abnormality, ORLIN, UTI, intra-abdominal pathology such as diverticulitis/colitis. NS bolus, morphine, Zofran ordered for symptoms. Laboratory workup ordered including CT abdomen and pelvis. Will repeat stool studies. CBC without leukocytosis or anemia. CMP without ORLIN however patient does have dehydration with mild hypokalemia and hyponatremia. p.o. potassium ordered. Patient has mild transaminitis. Lactic acid unremarkable. Lipase unremarkable. UA positive for dehydration with ketones. Negative for UTI. CT abdomen pelvis shows mild fluid distention of the bowel and mild sigmoid marrow edema, suggesting mild colitis. Colonic diverticulosis without diverticulitis. This can be seen with patient's history of rotavirus and possible C. difficile infection. On reevaluation, patient is still having nausea and vomiting. Unable to tolerate p.o. intake. She has lost a significant amount of weight. Patient will warrant admission for continued hydration and observation. Patient confirmed understanding of plan. I spoke with Dr. Sams who accepted admission. Impression: 1. Intractable nausea, vomiting, diarrhea 2. Rotavirus 3. Possible C. difficile infection 4. Dehydration Lab Data Labs: Laboratory Results - last 24 hr 05/29/24 05/29/24 05/29/24 11:13 11:44 11:54 WBC 6.7 RBC 4.53 Hgb 14.5 Hct 42.3 MCV 93.4 MCH 32.0 MCHC 34.3 RDW Std Deviation 43.8 RDW Coeff of Ester 12.8 Plt Count 150 MPV 8.6 Immature Gran % (Auto) 0.300 Neut % (Auto) 68.7 Lymph % (Auto) 17.7 L [place] % (Auto) 11.7 H Eos % (Auto) 1.2 Baso % (Auto) 0.4 Absolute Neuts (auto) 4.6 Absolute Lymphs (auto) 1.18 Nucleated RBC % 0 Sodium Cancelled 133 L Potassium Cancelled 3.0 L Chloride Cancelled 97 L Carbon Dioxide Cancelled 26.0 Anion Gap Cancelled 10 BUN Cancelled 14 Creatinine Cancelled 0.74 Estim Creat Clear Calc Cancelled 44.54 Est GFR (MDRD) Af Amer Cancelled 96 Est GFR (MDRD) Non-Af Cancelled 80 BUN/Creatinine Ratio Cancelled 19.0 Glucose Cancelled 109 H Lactic Acid 1.3 Calcium Cancelled 8.6 Total Bilirubin Cancelled 0.80 AST Cancelled 73 H ALT Cancelled 57 H Alkaline Phosphatase Cancelled 59 Total Protein Cancelled 6.5 Albumin Cancelled 3.3 Globulin Cancelled 3.2 Albumin/Globulin Ratio Cancelled 1.0 Lipase Cancelled 31 Urine Color Urine Clarity Urine pH Ur Specific [place] Urine Protein Urine Glucose (UA) Urine Ketones Urine Occult Blood Urine Nitrite Urine Bilirubin Urine Urobilinogen Ur Leukocyte Esterase Urine RBC Urine WBC Ur Squamous Epith Cells Urine Bacteria Urine Mucus 05/29/24 12:20 WBC RBC Hgb Hct MCV MCH MCHC RDW Std Deviation RDW Coeff of Ester Plt Count MPV Immature Gran % (Auto) Neut % (Auto) Lymph % (Auto) [place] % (Auto) Eos % (Auto) Baso % (Auto) Absolute Neuts (auto) Absolute Lymphs (auto) Nucleated RBC % Sodium Potassium Chloride Carbon Dioxide Anion Gap BUN Creatinine Estim Creat Clear Calc Est GFR (MDRD) Af Amer Est GFR (MDRD) Non-Af BUN/Creatinine Ratio Glucose Lactic Acid Calcium Total Bilirubin AST ALT Alkaline Phosphatase Total Protein Albumin Globulin Albumin/Globulin Ratio Lipase Urine Color Yellow Urine Clarity Clear Urine pH 6.0 Ur Specific [place] 1.025 Urine Protein 30 H Urine Glucose (UA) Normal Urine Ketones 150 A* Urine Occult Blood 50 H Urine Nitrite Negative Urine Bilirubin Negative Urine Urobilinogen Normal Ur Leukocyte Esterase Negative Urine RBC 0 SEEN Urine WBC 0 SEEN Ur Squamous Epith Cells 0-5 SEEN Urine Bacteria 0 SEEN Urine Mucus 0 SEEN Radiography Diagnostic Testing: Clinical Impression(s) from Imaging Studies Abdomen/Pelvis CT 05/29/24 11:32 IMPRESSION: Mild fluid distention of bowel and mild sigmoid mural edema, suggesting mild enterocolitis. Colonic diverticulosis without acute diverticulitis. Electronically Signed: Ness Mendieta MD at 13:12 EST , Discharge Plan Disposition Disposition: Acute Care Hospital [facility] Discharge Date/Time: 05/29/24 14:19
[2024-05-29] MEDS: 0.9% Normal Saline (1000mL) 1,000 ML 1000 ML IV (11:50)
[2024-05-29] MEDS: Ondansetron 4 MG/2 ML Vial IV ×2 (11:50→22:03)
[2024-05-29] MEDS: Morphine 2 MG/ML Syringe IV (11:51)
[2024-05-29 12:04] VITALS: BP 132/61; PULSE 90; RESP 22; TEMP 36.8; O2SAT 95
[2024-05-29 12:24] LABS: Lactic Acid 1.3 mmol/L (0.4-1.9)
[2024-05-29 12:25] LABS: Bacteria 0 SEEN /hpf (None Seen); Mucous, Urine 0 SEEN /hpf (<or=2+); Red Blood Cells-Urine 0 SEEN /hpf (0-5); White Blood Cells 0 SEEN /hpf (0-5)
[2024-05-29 12:28] LABS: Color, Urine Yellow (Yellow); Glucose, Dipstick Normal (Normal); Leukocyte Esterase-Dipstick Negative /ul (Negative); Nitrite-Dipstick Negative (Negative); Occult Blood-Urine 50 /ul (Negative); Protein-Dipstick 30 mg/dl (Negative); Specific Gravity, Urine 1.025 (1.002-1.030); Urine Bilirubin Dipstick Negative (Negative); Urine Clarity Clear (Clear); Urine Urobilinogen Normal (Normal)
[2024-05-29 12:29] LABS: AST(SGOT) 73 U/L (15-37); Alanine Aminotransfer ALT/SGPT 57 U/L (13-56); Albumin, Serum 3.3 g/dL (3.2-5.0); Alkaline Phosphatase 59 U/L (45-117); Anion Gap 10 (5-15); BUN 14 mg/dL (7-18); Calcium,Total 8.6 mg/dL (8.5-10.1); Chloride 97 mmol/L (98-107); Creatinine, Serum 0.74 mg/dL (0.55-1.02); EST Glomerular Filtration Rate 80 mL/min (>60); Est Glom Filt Rate - Afr Amer 96 mL/min (>60); Estimated Creatinine Clearance 44.54 ml/min; Globulin 3.2 g/dL (2.2-4.2); Glucose 109 mg/dL (74-106); Lipase 31 U/L (13-75); Protein, Total 6.5 g/dL (6.4-8.2); Sodium Level 133 mmol/L (136-145)
[2024-05-29 12:35] LABS: Ketone-Dipstick 150 mg/dl (Negative)
[2024-05-29 12:36] LABS: Squamous Epithelial Cells - UA 0-5 SEEN /hpf (5-10)
[2024-05-29] MEDS: Potassium Chloride Oral Soln 20 MEQ/15 ML UDC 40 MEQ PO (12:53)
[2024-05-29 13:02] VITALS: BP 121/78; PULSE 78; RESP 19; O2SAT 98
[2024-05-29 13:29] VITALS: BP 103/83; PULSE 86; RESP 22; TEMP 36.6; O2SAT 97
--- NOTE | 2024-05-29 13:37 | PCM.HP.STD ---
HPI - General General Date of Admission: 05/29/24 Date of Service: 05/29/24 Chief Complaint: N/V/D, abdominal discomfort. HPI Narrative The patient is an 83 y/o F w/ PMHx: CKD stage II per GFR trending, GERD, Former tobacco use, IBS with constipation, Asthma, Anxiety, Hx GI bleed, Hx C. difficile diarrhea/colitis who presents to the [facility] ED on 05/29/2024 with history of persistent nausea, emesis and diarrhea ongoing over the last several days with associated diffuse abdominal discomfort reporting her emesis and diarrhea are nonbloody with decreased oral intake with approximate 10 pound weight loss over the last 2 weeks initially evaluated in the ED on 06/16 with evidence at that time of mild dehydration with stool studies at that time positive for rotavirus and C. difficile antigen positive but negative for toxin with urine concerning for UTI with nitrites discharged home on oral vancomycin, Zofran and Lomotil. She has continued to take the oral vancomycin however she has had no improvement in her symptoms. From review of records 05/27/2024 urine obtained by catheter with noted less than 1000 E. coli growth, 05/26/2024 positive fecal WBC lactoferrin present, enteric with rotavirus detected, C. difficile antigen positive however C. difficile toxin negative and C. difficile PCR positive. 05/26/2024 ova and parasites still pending. She current notes her abdominal cramping is 3-4/10 in severity. She notes she has emesis with any oral intake attempts. She notes at least 8 diarrhea episodes daily. Workup in the ED included T96.9 Axillary, heart rate 93, BP 152/88, respiratory rate 16, 98% on room air with most recent repeat vitals T98.2 [place], heart rate 78, BP 121/78, respiratory rate 19, 98% on room air, CBC with WBC 6.7, human 14.5, platelet 150 without marked shift, CMP with sodium 133, potassium 3.0, chloride 97, BUN/creatinine 14/0.74, GFR 80, glucose 109, lactic acid 1.3, AST/LT 73/57 otherwise not marked appearing hepatic profile, lipase 31, urinalysis with elevated specific roughly 1.025, protein 30, ketones 150, occult blood 50, urine nitrite negative, urine leukocyte esterase negative, no evidence of any UTI, CT abdomen and pelvis with mild fluid distention of bowel and mild sigmoid mural edema suggestive of mild enterocolitis, colonic diverticulosis without acute diverticulitis. In the ED patient ministered 1 L mL saline, morphine 2 mg IV x 1, Zofran 4 mg IV x 1, potassium 40 mill equivalent p.o. x 1 liquid. [facility] Medical History CKD (chronic kidney disease), stage II Anxiety GI bleed Wears glasses Wears partial dentures Non-smoker Diverticulosis Acute depression Acute gastritis Nausea IBS (irritable bowel syndrome) Wears dentures Former smoker Gastroesophageal reflux disease Chronic constipation Diarrhea GERD (gastroesophageal reflux disease) Anxiety History of bronchitis Asthma Home Medications ?Medication ?Instructions ?Recorded ?Last Taken ?Type trazodone 100 mg tablet 50 - 100 mg PO QHS sleep 04/21/19 11/11/22 History gabapentin 300 mg capsule 300 - 600 mg PO DAILY 08/19/22 11/11/22 History buspirone 5 mg tablet 5 mg PO BID #60 tabs 08/25/23 Unknown Rx dicyclomine 20 mg tablet 20 mg PO TID 02/23/24 Unknown History omeprazole 20 mg capsule,delayed 20 mg PO QDAY 02/23/24 Unknown History release budesonide 3 mg 3 mg PO QAM #30 ea 02/28/24 Unknown Rx capsule,delayed,extended release hyoscyamine sulfate 0.125 mg tablet 0.125 mg PO BID dyspepsia #60 tabs 03/02/24 Unknown Rx prednisone 20 mg tablet 20 mg PO QDAY #7 tabs 03/02/24 Unknown Rx diphenoxylate-atropine 2.5 1 tab PO 4X/DAY PRN diarrhea 5 05/27/24 Unknown Rx mg-0.025 mg tablet (Lomotil) days #20 tabs ondansetron 4 mg disintegrating 4 mg PO TID PRN nausea and 05/27/24 Unknown Rx tablet vomiting #21 tabs vancomycin 125 mg capsule 125 mg PO 4X/DAY 10 days #40 caps 05/27/24 Unknown Rx Allergy/AdvReac Type Severity Reaction Status Date / Time cephalexin Allergy Intermediate Other Verified 05/29/24 11:05 nitrofurantoin (From Allergy Intermediate Other Verified 05/29/24 11:05 Macrobid) prednisone Allergy Intermediate Other Verified 05/29/24 11:05 Sulfa (Sulfonamide Allergy Intermediate Other Verified 05/29/24 11:05 Antibiotics) erythromycin base (From Allergy Nausea Verified 05/29/24 11:05 E-Mycin) Penicillins Allergy Vomiting Verified 05/29/24 11:05 Family History Father , 57 Heart disease Myocardial infarction Mother Alzheimer disease Surgical History History of appendectomy History of colonoscopy (~2010) History of esophagogastroduodenoscopy (EGD) (~2013) History of breast implant removal History of breast implant History of hysterectomy with oophorectomy History of cholecystectomy History of tonsillectomy and adenoidectomy Social History household members: none Smoking Status: Former smoker alcohol intake: never substance use type: does not use ROS ROS Narrative Admission Review of Systems: CONSTITUTIONAL: No weight loss, fever, chills, + weakness or fatigue. HEENT: Eyes: No visual loss, blurred vision, double vision or yellow sclerae. Ears, Nose, Throat: No hearing loss, sneezing, congestion, runny nose or sore throat. SKIN: No rash or itching, lesions, wounds. CARDIOVASCULAR: No chest pain, chest pressure or chest discomfort, palpitations, edema, orthopnea, syncopal events. RESPIRATORY: No shortness of breath, cough or sputum, wheezing, hemoptysis. GASTROINTESTINAL: + anorexia, nausea, vomiting, diarrhea, abdominal cramping/pain. No melena, BRBPR. GENITOURINARY: No dysuria, frequency, urgency or retention. NEUROLOGICAL: No headache, dizziness, syncope, paralysis, ataxia, numbness or tingling in the extremities, focal weakness, change in bowel or bladder control, seizure. MUSCULOSKELETAL: + muscle, back pain, joint pain or stiffness. HEMATOLOGIC: No anemia. + Easy bleeding/bruising. LYMPHATICS: No enlarged nodes. No history of splenectomy. PSYCHIATRIC: + History of anxiety. ENDOCRINOLOGIC: No reports of sweating, cold or heat intolerance. No polyuria or polydipsia. ALLERGIES: + History of asthma. Vital Signs Vital Signs Vital Signs: 05/29/24 11:02 05/29/24 12:04 05/29/24 13:02 Temperature 96.9 F L 98.2 F Temperature Source Axillary Oral Pulse Rate 93 90 78 Respiratory Rate 16 22 H 19 H Blood Pressure 152/88 H 132/61 H 121/78 H Blood Pressure Mean 109 84 92 Pulse Ox 98 95 98 Oxygen Delivery Method Room Air Room Air Room Air 05/29/24 13:29 Temperature 98 F Temperature Source Pulse Rate 86 Respiratory Rate 22 H Blood Pressure 103/83 H Blood Pressure Mean 89 Pulse Ox 97 Oxygen Delivery Method Weight Weight: 118 lb 13.266 oz Body Mass Index (BMI) 19.8 Physical Exam Narrative Physical Examination: General: Awake, alert, oriented x 3 and cooperative, seated upright in the ED bed, appears anxious, per discussion with staff has been up and able to get to the restroom on her own but currently appears weak and fatigued. Skin: Normal color, normal turgor, no icterus, no cyanosis except occasional stage ecchymoses, abrasion HEENT: AT/NC, EOMI, PERRLA, dry MM, no carotid bruits or JVD noted. Lungs: Mildly diminished, greater bases, proper effort, no rales, ronchi or wheezing. Heart: Regular rate and rhythm; no gallop, rub audible. Abdomen: Soft, despite abdominal cramping and discomfort complaints there is no tenderness to palpation no rebound or guarding, no marked distention, mildly hyperactive bowel sounds, no appreciated HSM. Extremities: No cyanosis, clubbing, or edema. Neurological: Patient awake, alert, oriented as noted, cognitive function intact; pupils equally reactive to light and accommodation, cranial nerves gross normal, moving all 4 extremities, no focal deficits, strength moderately globally decreased. Psychiatric: Affect appears anxious with underlying anxiety history. Results Lab / Micro Data 05/29/24 11:13 05/29/24 11:54 Labs: Laboratory Results - last 24 hr 05/29/24 11:13: WBC 6.7, RBC 4.53, Hgb 14.5, Hct 42.3, MCV 93.4, MCH 32.0, MCHC 34.3, RDW Std Deviation 43.8, RDW Coeff of Ester 12.8, Plt Count 150, MPV 8.6, Immature Gran % (Auto) 0.300, Neut % (Auto) 68.7, Lymph % (Auto) 17.7 L, [place] % (Auto) 11.7 H, Eos % (Auto) 1.2, Baso % (Auto) 0.4, Absolute Neuts (auto) 4.6, Absolute Lymphs (auto) 1.18, Nucleated RBC % 0, Sodium Cancelled, Potassium Cancelled, Chloride Cancelled, Carbon Dioxide Cancelled, Anion Gap Cancelled, BUN Cancelled, Creatinine Cancelled, Estim Creat Clear Calc Cancelled, Est GFR (MDRD) Af Amer Cancelled, Est GFR (MDRD) Non-Af Cancelled, BUN/Creatinine Ratio Cancelled, Glucose Cancelled, Calcium Cancelled, Total Bilirubin Cancelled, AST Cancelled, ALT Cancelled, Alkaline Phosphatase Cancelled, Total Protein Cancelled, Albumin Cancelled, Globulin Cancelled, Albumin/Globulin Ratio Cancelled, Lipase Cancelled 05/29/24 11:44: Lactic Acid 1.3 05/29/24 11:54: Sodium 133 L, Potassium 3.0 L, Chloride 97 L, Carbon Dioxide 26.0, Anion Gap 10, BUN 14, Creatinine 0.74, Estim Creat Clear Calc 44.54, Est GFR (MDRD) Af Amer 96, Est GFR (MDRD) Non-Af 80, BUN/Creatinine Ratio 19.0, Glucose 109 H, Calcium 8.6, Total Bilirubin 0.80, AST 73 H, ALT 57 H, Alkaline Phosphatase 59, Total Protein 6.5, Albumin 3.3, Globulin 3.2, Albumin/Globulin Ratio 1.0, Lipase 31 05/29/24 12:20: Urine Color Yellow, Urine Clarity Clear, Urine pH 6.0, Ur Specific [place] 1.025, Urine Protein 30 H, Urine Glucose (UA) Normal, Urine Ketones 150 A*, Urine Occult Blood 50 H, Urine Nitrite Negative, Urine Bilirubin Negative, Urine Urobilinogen Normal, Ur Leukocyte Esterase Negative, Urine RBC 0 SEEN, Urine WBC 0 SEEN, Ur Squamous Epith Cells 0-5 SEEN, Urine Bacteria 0 SEEN, Urine Mucus 0 SEEN Imaging Radiology Impression Abdomen/Pelvis CT 05/29/24 11:32 IMPRESSION: Mild fluid distention of bowel and mild sigmoid mural edema, suggesting mild enterocolitis. Colonic diverticulosis without acute diverticulitis. Electronically Signed: Ness Mendieta MD at 13:12 EST , Assessment & Plan Assessment/Plan (1) Nausea vomiting and diarrhea: PLAN: Plan The patient is an 83 y/o F w/ PMHx: CKD stage II per GFR trending, GERD, Former tobacco use, IBS with constipation, Asthma, Anxiety, Hx GI bleed, Hx C. difficile diarrhea/colitis who presents to the [facility] ED on 05/29/2024 with history of persistent nausea, emesis and diarrhea ongoing over the last several days with associated diffuse abdominal discomfort reporting her emesis and diarrhea are nonbloody with decreased oral intake with approximate 10 pound weight loss over the last 2 weeks initially evaluated in the ED on 06/16 with evidence at that time of mild dehydration with stool studies at that time positive for rotavirus and C. difficile antigen positive but negative for toxin with urine concerning for UTI with nitrites discharged home on oral vancomycin, Zofran and Lomotil. #1. Persistent N/V/D, Acute Rotaviral Gastroenteritis with history of C. difficile colitis previously with positive antigen but negative toxin thus could certainly be primarily colonization in the setting of acute viral diarrheal illness complicated by Underlying IBS w/ chronic constipation->transitioned to persistent diarrhea per outpatient notes with associated significant weakness, debility, adult failure to thrive and given recent significant weight loss/poor intake severe protein calorie malnutrition: Will admit to medical surgical floor, will continue hydration, recent stool studies already obtained with pending ova and parasite, will maintain on clear liquids until clinically improving, maintain on IV PPI, monitor I's and O's, continue antiemetics and discomfort medicines as needed. If not improving certainly could involve gastroenterology as this patient is following chronically for issues with constipation/diarrhea, will for now maintain on oral vancomycin given severity of diarrhea, but higher suspicion as colonization only based on labs. PT/OT/CM consulted for discharge planning. #2. Acute hyponatremia, hypovolemic secondary to GI losses: Admission sodium 133, chloride 97, continue hydration and repeat CMP in AM. #3. Hypokalemia: Admission K+ 3.0, magnesium level requested, supplementation given, repeat level in AM. #4. Chronic Kidney Disease Stage II per GFR trending: Admission BUN/Cr 14/0.74, GFR 80, baseline renal function similar 0.7-0.9 primarily, repeat BMP in AM. #5. GERD with history of GI bleed: Patient on omeprazole low-dose daily, given presentation will temporally place on IV PPI although given history of C. difficile colitis certainly preferential to avoid long-term. #6. Chronic neuropathy: Will continue patient on gabapentin regimen. #7. IBS constipation type: Patient normally on budesonide, hycoscyamine, following with gastroenterology Dr. Quesada with last visit 02/23/2024, ongoing per notes more persistent issues now with elvie diarrhea. #8. Anxiety: We will continue patient home BuSpar regimen. #9. Chronic Asthma: Not on any chronic inhalers per current list, PRN albuterol, HOB, IS parameters. #10. Former tobacco use: Encourage continued tobacco cessation. #11. DVT prophylaxis: Lovenox. #12. CODE status: Patient HCPOA and living will are currently not in place but she notes her daughter would be her medical decision-maker if necessary. Discussed CODE status at length including difference between FULL code, DNR-CCA and DNR-CC status. Following discussions about the differences in these status, requested Full Code status. Advanced Care Planning Face to Face Time: 16 minutes. Charges/Coding Visit Charges Inpatient E&M: 05829 Init Hosp L3 Procedures Hospitalists Procedures: 79500 Advncd Care Plan 30 Min
[2024-05-29 14:28] VITALS: BMI 17.8
[2024-05-29 14:28] LABS: Magnesium 1.4 mg/dL (1.6-2.6); Phosphorus 1.9 mg/dL (2.5-4.9)
[2024-05-29 14:33] LABS: Procalcitonin 0.17 ng/mL (0.00-0.09)
[2024-05-29] MEDS: proCHLORPERazine 10 MG/2 ML Vial 5 MG IV (15:18)
[2024-05-29] MEDS: Diphenoxylate/Atrop 1 Tablet PO (15:18)
[2024-05-29] MEDS: 0.9% Saline Lock 10 ML Syringe IV ×2 (15:19→18:52)
[2024-05-29] MEDS: Pantoprazole Sodium 40 MG in 0.9% Normal Saline (100mL MB+) 100 ML 330 MG IV ×2 (15:28→21:52)
[2024-05-29] MEDS: busPIRone 5 MG Tablet PO ×2 (15:29→21:53)
--- NOTE | 2024-05-29 17:51 | NURSING ---
attempted to call dr Mishra back at [phone] to
--- NOTE | 2024-05-29 18:10 | NURSING ---
DAUGHTER GENNY CALLED BACK. DISCUSSED CURRENT POC. WILL ASK DR TO CALL HER TOMORROW WITH UPDATE PER HER REQUEST.
--- NOTE | 2024-05-29 18:22 | NURSING ---
COMMUNICATION SENT TO DR TIMMONS, PT STILL NAUSEATED, ZOFRAN NOT DUE UNTIL 8, COMPAZINE NOT DUE UNTIL 7.
[2024-05-29] MEDS: Haloperidol Lactate 5 MG/ML Vial IV (18:51)
[2024-05-29] MEDS: Vancomycin 125 MG/5 ML Susp PO.SYRINGE PO ×2 (18:52→21:57)
[2024-05-29] MEDS: 0.9% Normal Saline (1000mL) 1,000 ML 100 ML IV (18:52)
[2024-05-29 19:44] VITALS: BP 164/82; PULSE 83; RESP 16; TEMP 36.9; O2SAT 94
[2024-05-29] MEDS: traZODone 50 MG Tablet PO (21:53)
[2024-05-29] MEDS: Dicyclomine 10 MG Capsule 20 MG PO (21:53)
[2024-05-30 02:00] VITALS: BP 147/80; PULSE 80; RESP 16; TEMP 36.6; O2SAT 95
[2024-05-30] MEDS: 0.9% Normal Saline (1000mL) 1,000 ML 100 ML IV (04:33)
[2024-05-30] MEDS: Dicyclomine 10 MG Capsule 20 MG PO ×3 (04:34→21:07)
[2024-05-30 05:30] VITALS: BMI 18.6
[2024-05-30 06:16] LABS: Absolute Lymphocyte Count 1.58 X10^3/uL (0.83-4.51); Absolute Neutrophil Count 2.3 X10^3/uL (2.0-7.7); Basophil# 0.03 X10^3/uL; Basophil% 0.7 % (0-1); Eosinophil# 0.09 X10^3/uL; Hematocrit 36.1 % (37-47); Hemoglobin 12.2 g/dL (12.0-15.0); Lymphocyte # 1.58 X10^3/ul (0.83-4.51); Lymphocyte % 34.6 % (19-41); Mean Corp Hgb Conc 33.8 g/dL (32-36); Mean Corpuscular Hgb 32.1 pg (27.0-32.0); Mean Platelet Vol. 8.6 fl (6.2-12.0); Monocyte# 0.54 X10^3/uL; Monocyte% 11.8 % (0-10); NRBC Flagged by Analyzer 0 % (0-5); Neutrophil # 2.32 X10^3/uL (2.7-7.7); Neutrophil % 50.7 % (47-70); POSITIVE MORPHOLOGY YES; Platelet Count 138 K/mm3 (150-450); RBC Distribution Width CV 12.8 % (11.6-14.6); RBC Distribution Width SD 44.3 fl (35.1-43.9); White Blood Count 4.6 K/mm3 (4.4-11.0)
[2024-05-30 06:29] LABS: Differential Indicated SCAN CRITERIA MET
[2024-05-30 06:43] LABS: ALB/GLOB Ratio 1.1 RATIO (0.9-2.4); AST(SGOT) 58 U/L (15-37); Alanine Aminotransfer ALT/SGPT 48 U/L (13-56); Alkaline Phosphatase 49 U/L (45-117); Anion Gap 10 (5-15); BUN 8 mg/dL (7-18); BUN/Creat Ratio 15.7 RATIO (10-20); Calcium,Total 8.1 mg/dL (8.5-10.1); Chloride 103 mmol/L (98-107); Creatinine, Serum 0.51 mg/dL (0.55-1.02); EST Glomerular Filtration Rate 122 mL/min (>60); Est Glom Filt Rate - Afr Amer 148 mL/min (>60); Globulin 2.8 g/dL (2.2-4.2); Glucose 74 mg/dL (74-106); Potassium 3.3 mmol/L (3.5-5.1); Protein, Total 5.8 g/dL (6.4-8.2); Sodium Level 135 mmol/L (136-145)
--- NOTE | 2024-05-30 07:31 | PN.HOSP_ITS ---
Reason for Visit Reason for Visit: Diagnoses Nausea with vomiting, unspecified (05/29/24) Diarrhea, unspecified (05/29/24) Subjective Subjective Patient is an 83-year-old lady who presented with nausea vomiting and diarrhea. Patient tested positive for rotavirus on 05/26/2024. Stool for C. difficile tested positive for antigen but negative toxin. Patient seen this morning complains of dysuria and frequency had previously tested positive for E. coli announced significant growth repeated urinalysis patient started on ceftriaxone Objective Data Objective Data Vital Signs: Vital Signs Temp Pulse Resp BP Pulse Ox O2 Del Method 98 F 80 16 147/80 H 95 Room Air 05/30/24 02:00 05/30/24 02:00 05/30/24 02:00 05/30/24 02:00 05/30/24 02:00 05/30/24 02:00 Oxygen Delivery Method Room Air Weight: 50.7 kg Body Mass Index (BMI) 18.6 Intake & Output: Intake and Output for Last 24 Hours 05/28/24 05/29/24 05/30/24 23:59 23:59 23:59 Intake Total 1220 / 1220 968.33 / 968.33 Balance 1220 / 1220 968.33 / 968.33 Lab / Micro Data 05/30/24 05:42 05/30/24 05:42 Labs: Laboratory Results - last 24 hr 05/29/24 11:13: WBC 6.7, RBC 4.53, Hgb 14.5, Hct 42.3, MCV 93.4, MCH 32.0, MCHC 34.3, RDW Std Deviation 43.8, RDW Coeff of Ester 12.8, Plt Count 150, MPV 8.6, Immature Gran % (Auto) 0.300, Neut % (Auto) 68.7, Lymph % (Auto) 17.7 L, [place] % (Auto) 11.7 H, Eos % (Auto) 1.2, Baso % (Auto) 0.4, Absolute Neuts (auto) 4.6, Absolute Lymphs (auto) 1.18, Nucleated RBC % 0, Sodium Cancelled, Potassium Cancelled, Chloride Cancelled, Carbon Dioxide Cancelled, Anion Gap Cancelled, BUN Cancelled, Creatinine Cancelled, Estim Creat Clear Calc Cancelled, Est GFR (MDRD) Af Amer Cancelled, Est GFR (MDRD) Non-Af Cancelled, BUN/Creatinine Ratio Cancelled, Glucose Cancelled, Calcium Cancelled, Total Bilirubin Cancelled, AST Cancelled, ALT Cancelled, Alkaline Phosphatase Cancelled, Total Protein Cancelled, Albumin Cancelled, Globulin Cancelled, Albumin/Globulin Ratio Cancelled, Lipase Cancelled 05/29/24 11:44: Lactic Acid 1.3 05/29/24 11:54: Sodium 133 L, Potassium 3.0 L, Chloride 97 L, Carbon Dioxide 26.0, Anion Gap 10, BUN 14, Creatinine 0.74, Estim Creat Clear Calc 44.54, Est GFR (MDRD) Af Amer 96, Est GFR (MDRD) Non-Af 80, BUN/Creatinine Ratio 19.0, G lucose 109 H, Calcium 8.6, Total Bilirubin 0.80, AST 73 H, ALT 57 H, Alkaline Phosphatase 59, Total Protein 6.5, Albumin 3.3, Globulin 3.2, Albumin/Globulin Ratio 1.0, Lipase 31 05/29/24 12:20: Urine Color Yellow, Urine Clarity Clear, Urine pH 6.0, Ur Specific [place] 1.025, Urine Protein 30 H, Urine Glucose (UA) Normal, Urine Ketones 150 A*, Urine Occult Blood 50 H, Urine Nitrite Negative, Urine Bilirubin Negative, Urine Urobilinogen Normal, Ur Leukocyte Esterase Negative, Urine RBC 0 SEEN, Urine WBC 0 SEEN, Ur Squamous Epith Cells 0-5 SEEN, Urine Bacteria 0 SEEN, Urine Mucus 0 SEEN 05/29/24 14:02: Phosphorus 1.9 L, Magnesium 1.4 L, Procalcitonin 0.17 H 05/30/24 05:42: WBC 4.6, RBC 3.80 L, Hgb 12.2, Hct 36.1 L, MCV 95.0, MCH 32.1 H, MCHC 33.8, RDW Std Deviation 44.3 H, RDW Coeff of Ester 12.8, Plt Count 138 L, MPV 8.6, Immature Gran % (Auto) 0.200, Neut % (Auto) 50.7, Lymph % (Auto) 34.6, [place] % (Auto) 11.8 H, Eos % (Auto) 2.0, Baso % (Auto) 0.7, Absolute Neuts (auto) 2.3, Absolute Lymphs (auto) 1.58, Nucleated RBC % 0, Sodium 135 L, Potassium 3.3 L, Chloride 103, Carbon Dioxide 22.0, Anion Gap 10, BUN 8, Creatinine 0.51 L, Estim Creat Clear Calc 41.90, Est GFR (MDRD) Af Amer 148, Est GFR (MDRD) Non-Af 122, BUN/Creatinine Ratio 15.7, Glucose 74, Calcium 8.1 L, Total Bilirubin 0.70, AST 58 H, ALT 48, Alkaline Phosphatase 49, Total Protein 5.8 L, Albumin 3.0 L, Globulin 2.8, Albumin/Globulin Ratio 1.1 Radiography Diagnostic Testing: Radiology Impression Abdomen/Pelvis CT 05/29/24 11:32 IMPRESSION: Mild fluid distention of bowel and mild sigmoid mural edema, suggesting mild enterocolitis. Colonic diverticulosis without acute diverticulitis. Electronically Signed: Ness Mendieta MD at 13:12 EST Reading Location ID and State: [facility] / [place] Tel , Service support , Physical Exam Narrative GENERAL: cooperative HEENT: Atraumatic; normocephalic EYES; Anicteric, Normal Conjunctiva NECK; supple, normal thyroid, RESPIRATORY: Diminished to auscultation CARDIOVASCULAR: Regular S1 S2, GI: soft, normoactive bowel sounds, : No Renal angle tenderness; EXTREMITIES: No edema, no clubbing, MUSCULOSKELETAL: no muscle wasting NEURO: Awake; no lateralizing signs. SKIN: No Rash PSYCH; Flat affect Assessment & Plan Assessment/Plan (1) Nausea vomiting and diarrhea: PLAN: Plan Patient is an 83-year-old lady who presented with nausea vomiting and diarrhea. Patient tested positive for rotavirus on 05/26/2024. Stool for C. difficile tested positive for antigen but negative toxin. 1. Acute viral gastroenteritis ? Patient has been admitted to regular nursing floor symptom management with IV fluid antinausea medication initiated with subsequent monitoring of electrolyte 2. Hyponatremia Secondary to hypovolemic hyponatremia started on IV fluids subsequent monitoring of electrolyte 3. Hypokalemia ? Secondary to GI losses corrected per protocol 4. Hypomagnesemia -Corrected for protocol 5. Hypophosphatemia ? Corrected for protocol repeat labs ordered in a.m. for 6. Mild intermittent asthma ? Not in exacerbation aerosol treatments as needed 7. Anxiety disorder ? Patient is on buspirone 8. GERD ? Patient is on PPI continue 9. Peripheral neuropathy ? Patient is on gabapentin 10. DVT prophylaxis ? On enoxaparin 11. Suspected cystitis ? Sent for urinalysis started patient on ceftriaxone Time spent in the patient's overall evaluation,decision-making process, review of diagnostic data, adjustment of management, discussion with other providers, nursing nursing and ancillary staff involved in patient's care documentation, 50 Minutes Charges/Coding Visit Charges Inpatient E&M: 40663 [facility] Hosp L3
[2024-05-30 08:03] LABS: Platelet Estimate SLT DEC (ADEQ); Reactive Lymphocyte 2+
[2024-05-30 10:00] VITALS: BP 149/72; PULSE 82; RESP 14; TEMP 36.6; O2SAT 94
[2024-05-30] MEDS: Pantoprazole Sodium 40 MG in 0.9% Normal Saline (100mL MB+) 100 ML 330 MG IV ×2 (10:14→21:07)
[2024-05-30] MEDS: 0.9% Normal Saline (100mL Bag) 100 ML 15 ML IV (10:16)
[2024-05-30 10:17] LABS: Bacteria 0 SEEN /hpf (None Seen); Mucous, Urine 0 SEEN /hpf (<or=2+); Squamous Epithelial Cells - UA 0 SEEN /hpf (5-10); White Blood Cells 0 SEEN /hpf (0-5)
[2024-05-30] MEDS: Ceftriaxone 1 GM/50 ML BAG IV (10:19)
[2024-05-30] MEDS: Enoxaparin 40 MG/0.4 ML Syringe SC (10:22)
[2024-05-30] MEDS: Magnesium Chloride 64 MG Delay Rel.Tablet 128 MG PO ×2 (10:22→21:07)
[2024-05-30] MEDS: busPIRone 5 MG Tablet PO ×2 (10:22→21:07)
[2024-05-30] MEDS: Vancomycin 125 MG/5 ML Susp PO.SYRINGE PO ×4 (10:23→21:08)
[2024-05-30] MEDS: Potassium Chloride Oral Tablet 20 MEQ PO ×2 (10:23→18:46)
[2024-05-30] MEDS: Na Biphos/Potassium Phosphate PACKET 1 PACKET PO ×2 (10:23→21:06)
[2024-05-30 10:36] LABS: Color, Urine Yellow (Yellow); Glucose, Dipstick Normal (Normal); Leukocyte Esterase-Dipstick Negative /ul (Negative); Nitrite-Dipstick Negative (Negative); Occult Blood-Urine 50 /ul (Negative); Protein-Dipstick 15 mg/dl (Negative); Urine Bilirubin Dipstick Negative (Negative); Urine Clarity Sl. Cloudy (Clear); Urine Urobilinogen Normal (Normal)
[2024-05-30 10:39] LABS: Ketone-Dipstick 150 mg/dl (Negative)
[2024-05-30] MEDS: Potassium Phosphate 40 MM in 0.9% Normal Saline (500mL Bag) 500 ML 62.5 MM IV (10:50)
[2024-05-30 10:51] LABS: Red Blood Cells-Urine 0-5 SEEN /hpf (0-5)
[2024-05-30] MEDS: Magnesium Sulfate 4gm/100mL 4 GM/100 ML IV.SOLN. IV (10:53)
--- NOTE | 2024-05-30 11:53 | NURSING ---
PT UNABLE TO TOLERATE THE MAG SULFATE AND POTASSIUM PHOSPHATE TOGETHER. POTASSIUM PHOSPHATE STOPPED AT THIS TIME.
[2024-05-30 12:00] VITALS: PULSE 93
--- NOTE | 2024-05-30 14:12 | NURSING ---
called daughter pieter w/pt update
[2024-05-30 14:28] VITALS: BP 137/91; PULSE 90; RESP 18; TEMP 36.4; O2SAT 95
--- NOTE | 2024-05-30 15:29 | CASEMGMT ---
JOSE MANUEL MURRELL made aware by pt nurse that pt dtr would like private duty info. JOSE MANUEL MURRELL into pt room, pt sitting up in bed with nurse at bedside. Pt states she lives with her sister in a single story home with no steps to enter. She states she is I in ADL/IADLs and denies concerns at home. Pt drives and works. Pt has no DME, denies hx of HHC and SNF stays. Pt denies any homegoing needs. Pt agreeable to JOSE MANUEL MURRELL speaking with her dtr regarding her dc plan. Pt states she has helped her sister at home as she recently had a heart attack. TC to pt dtr, answered questions regarding medic alert. She is requesting information be emailed to her regarding medic alert. She is also requesting to speak to dairy husbandry worker. TC to dairy husbandry worker, no answer and unable to leave vm. JOSE MANUEL MURRELL to attempt at a later time to request dairy husbandry worker to call pt dtr. Emailed medic alert information at this time to [email or web address].
--- NOTE | 2024-05-30 15:58 | CHAPLAIN ---
Type of Pastoral Visit _x__ Initial Visit ___ Follow-up Visit ___ On-call Visit ___ General Patient Visit ___ Spiritual Assessment ___ Family Conference ___ Bereavement ___ Rapid Response ___ Code Blue ___ Other (describe below) Pastoral Care Referral From _x__ Patient ___ Family ___ Nurse ___ Physician ___ Coal Cutting Machine Operator ___ Document Management Technician ___ Other (describe below) Sacrament/Intervention _x__ Active listening ___ Anointing ___ Moravian ___ Bereavement ___ Communion ___ Iman exploration ___ ___ Life review _x__ Prayer ___ Reconciliation ___ Sacrament of Sick _x__ Supportive presence ___ Wedding ___ Other (describe below) Pastoral Comments at time of the visit the RN and the EV staff were also in the room to fulfill their duties; patient states that it is fine to come in at this time; pt admits that she is not feeling well and that she answers just pray for me; pt adds that she is a believer and that she loves to read her Bible but I don't even feel like I can do that now; pt says that her daughter is flying in tomorrow to be with her so that she will have support; prayer is given and patient expresses thanks and how do people do it that don't have iman?
--- NOTE | 2024-05-30 16:03 | CASEMGMT ---
Spoke with pts darnell, Danica Cortez, to complete LIAO form. LIAO form explained to Danica who voiced understanding. Original form placed in pt?s chart and copy provided to patient. Milena Evans, Discharge Planning Asst
--- NOTE | 2024-05-30 17:14 | NURSING ---
pt c/o burning w/urination. requesting something. dr weinberg notified x2
[2024-05-30] MEDS: Phenazopyridine 95 MG Tablet PO ×2 (18:46→21:06)
--- NOTE | 2024-05-30 19:32 | NURSING ---
UPDATED DAUGHTER, GENNY. SHE WILL BE FLYING IN TOMORROW EVENING
[2024-05-30 20:00] VITALS: BP 146/78; PULSE 82; RESP 16; TEMP 36.6; O2SAT 96
[2024-05-30] MEDS: traZODone 50 MG Tablet PO (21:07)
[2024-05-30] MEDS: Gabapentin 300 MG Capsule PO (21:14)
[2024-05-31] MEDS: Dicyclomine 10 MG Capsule 20 MG PO ×3 (05:40→23:17)
[2024-05-31] MEDS: Phenazopyridine 95 MG Tablet PO ×3 (05:40→23:17)
[2024-05-31 06:00] VITALS: BMI 18.7
[2024-05-31 06:48] LABS: Absolute Lymphocyte Count 2.22 X10^3/uL (0.83-4.51); Absolute Neutrophil Count 2.6 X10^3/uL (2.0-7.7); Basophil# 0.03 X10^3/uL; Basophil% 0.5 % (0-1); Eosinophil# 0.12 X10^3/uL; Eosinophils% 2.2 % (0-5); Hematocrit 42.7 % (37-47); Hemoglobin 14.2 g/dL (12.0-15.0); Lymphocyte # 2.22 X10^3/ul (0.83-4.51); Lymphocyte % 40.2 % (19-41); Mean Corp Hgb Conc 33.3 g/dL (32-36); Mean Corpuscular Hgb 31.4 pg (27.0-32.0); Mean Corpuscular Volume 94.5 fL (81-99); Mean Platelet Vol. 8.6 fl (6.2-12.0); Monocyte# 0.54 X10^3/uL; Monocyte% 9.8 % (0-10); NRBC Flagged by Analyzer 0 % (0-5); Neutrophil # 2.59 X10^3/uL (2.7-7.7); Neutrophil % 46.9 % (47-70); POSITIVE MORPHOLOGY YES; Platelet Count 170 K/mm3 (150-450); RBC Distribution Width CV 12.7 % (11.6-14.6); Red Blood Count 4.52 M/mm3 (4.2-5.4); White Blood Count 5.5 K/mm3 (4.4-11.0)
[2024-05-31 07:10] LABS: Differential Indicated SCAN CRITERIA MET
[2024-05-31 07:27] LABS: Anion Gap 7 (5-15); BUN 4 mg/dL (7-18); BUN/Creat Ratio 6.3 RATIO (10-20); Calcium,Total 8.6 mg/dL (8.5-10.1); Chloride 100 mmol/L (98-107); Creatinine, Serum 0.63 mg/dL (0.55-1.02); EST Glomerular Filtration Rate 95 mL/min (>60); Est Glom Filt Rate - Afr Amer 115 mL/min (>60); Estimated Creatinine Clearance 42.23 ml/min; Glucose 92 mg/dL (74-106); Magnesium 2.6 mg/dL (1.6-2.6); Phosphorus 3.5 mg/dL (2.5-4.9); Potassium 4.2 mmol/L (3.5-5.1); Sodium Level 132 mmol/L (136-145)
--- NOTE | 2024-05-31 07:39 | PN.HOSP_ITS ---
Reason for Visit Reason for Visit: Diagnoses Nausea with vomiting, unspecified (05/29/24) Diarrhea, unspecified (05/29/24) Subjective Subjective Patient seen complains of profound generalized weakness and continues to experience several loose bowel movement. Her repeat stool studies came back positive for rotavirus patient started on Imodium for symptomatic Objective Data Objective Data Vital Signs: Vital Signs Temp Pulse Resp BP Pulse Ox O2 Del Method 97.8 F 82 16 146/78 H 96 Room Air 05/30/24 20:00 05/30/24 20:00 05/30/24 20:00 05/30/24 20:00 05/30/24 20:00 05/30/24 20:00 Oxygen Delivery Method Room Air Weight: 51.1 kg Body Mass Index (BMI) 18.7 Intake & Output: Intake and Output for Last 24 Hours 05/29/24 05/30/24 05/31/24 23:59 23:59 23:59 Intake Total 1220 / 1220 2487.6633 / 2487.6633 Balance 1220 / 1220 2487.6633 / 2487.6633 Lab / Micro Data 05/31/24 05:54 05/31/24 05:54 Labs: Laboratory Results - last 24 hr 05/30/24 05:42: Diff Path Review September, Reactive Lymphocytes 2+, Platelet Estimate SLT 05/30/24 09:50: Urine Color Yellow, Urine Clarity Sl. Cloudy, Urine pH 6.0, Ur Specific [place] 1.020, Urine Protein 15 H, Urine Glucose (UA) Normal, Urine Ketones 150 A*, Urine Occult Blood 50 H, Urine Nitrite Negative, Urine Bilirubin Negative, Urine Urobilinogen Normal, Ur Leukocyte Esterase Negative, Urine RBC 0-5 SEEN, Urine WBC 0 SEEN, Ur Squamous Epith Cells 0 SEEN, Urine Bacteria 0 SEEN, Urine Mucus 0 SEEN 05/31/24 05:54: WBC 5.5, RBC 4.52, Hgb 14.2, Hct 42.7, MCV 94.5, MCH 31.4, MCHC 33.3, RDW Std Deviation 44.0 H, RDW Coeff of Ester 12.7, Plt Count 170, MPV 8.6, Immature Gran % (Auto) 0.400, Neut % (Auto) 46.9 L, Lymph % (Auto) 40.2, [place] % (Auto) 9.8, Eos % (Auto) 2.2, Baso % (Auto) 0.5, Absolute Neuts (auto) 2.6, Absolute Lymphs (auto) 2.22, Nucleated RBC % 0, Sodium 132 L, Potassium 4.2, Chloride 100, Carbon Dioxide 25.0, Anion Gap 7, BUN 4 L, Creatinine 0.63, Estim Creat Clear Calc 42.23, Est GFR (MDRD) Af Amer 115, Est GFR (MDRD) Non-Af 95, B UN/Creatinine Ratio 6.3 L, Glucose 92, Calcium 8.6, Phosphorus 3.5, Magnesium 2.6 Physical Exam Narrative GENERAL: cooperative HEENT: Atraumatic; normocephalic EYES; Anicteric, Normal Conjunctiva NECK; supple, normal thyroid, RESPIRATORY: Diminished to auscultation CARDIOVASCULAR: Regular S1 S2, GI: soft, normoactive bowel sounds, : No Renal angle tenderness; EXTREMITIES: No edema, no clubbing, MUSCULOSKELETAL: no muscle wasting NEURO: Awake; no lateralizing signs. SKIN: No Rash PSYCH; Flat affect Assessment & Plan Assessment/Plan (1) Nausea vomiting and diarrhea: PLAN: Plan Patient is an 83-year-old lady who presented with nausea vomiting and diarrhea. Patient tested positive for rotavirus on 05/26/2024. Stool for C. difficile tested positive for antigen but negative toxin. 1. Acute viral gastroenteritis with rotavirus ? Patient has been admitted to regular nursing floor symptom management with IV fluid antinausea medication initiated with subsequent monitoring of electrolyte ? 05/31/2024;Patient seen complains of profound generalized weakness and continues to experience several loose bowel movement. Her repeat stool studies came back positive for rotavirus patient started on Imodium for sympton management 2. Hyponatremia Secondary to hypovolemic hyponatremia started on IV fluids subsequent monitoring of electrolyte 3. Hypokalemia ? Secondary to GI losses corrected per protocol 4. Hypomagnesemia -Corrected for protocol 5. Hypophosphatemia ? Corrected for protocol repeat labs ordered in a.m. for 6. Mild intermittent asthma ? Not in exacerbation aerosol treatments as needed 7. Anxiety disorder ? Patient is on buspirone 8. GERD ? Patient is on PPI continue 9. Peripheral neuropathy ? Patient is on gabapentin 10. DVT prophylaxis ? On enoxaparin 11. Suspected cystitis ? Sent for urinalysis started patient on ceftriaxone ? 05/31/2024 patient urinalysis negative for UTI antibiotics discontinued pending Time spent in the patient's overall evaluation,decision-making process, review of diagnostic data, adjustment of management, discussion with other providers, nursing nursing and ancillary staff involved in patient's care documentation, 38 Minutes Charges/Coding Visit Charges Inpatient E&M: 29700 Subs Hosp L2
[2024-05-31 08:02] LABS: Differential Comment SCANNED
[2024-05-31 09:20] VITALS: BP 126/73; PULSE 93; RESP 18; TEMP 36.4; O2SAT 97
[2024-05-31] MEDS: Potassium Chloride Oral Tablet 20 MEQ PO ×2 (09:23→17:53)
[2024-05-31] MEDS: Enoxaparin 40 MG/0.4 ML Syringe SC (09:23)
[2024-05-31] MEDS: Magnesium Chloride 64 MG Delay Rel.Tablet 128 MG PO ×2 (09:23→23:17)
[2024-05-31] MEDS: Na Biphos/Potassium Phosphate PACKET 1 PACKET PO ×2 (09:23→23:17)
[2024-05-31] MEDS: busPIRone 5 MG Tablet PO ×2 (09:24→23:17)
[2024-05-31] MEDS: 0.9% Saline Lock 10 ML Syringe IV (09:24)
[2024-05-31] MEDS: Loperamide 2 MG Capsule 4 MG PO (09:30)
[2024-05-31] MEDS: Pantoprazole Sodium 40 MG Tablet PO (09:31)
[2024-05-31] MEDS: Vancomycin 125 MG/5 ML Susp PO.SYRINGE PO ×4 (09:34→23:17)
[2024-05-31 10:01] LABS: Pathologist Review Reviewed
--- NOTE | 2024-05-31 10:07 | CASEMGMT ---
Spoke with cnc cutting operator Kimberly, she is aware that pt dtr would like a tc.
--- NOTE | 2024-05-31 10:27 | NS ---
05/31/23: RYANN called pt's daughter Danica ([phone]) and left voicemail d/t no answer. Kimberly Cornell RDN, LD
[2024-05-31 15:07] VITALS: BP 125/73; PULSE 91; RESP 18; TEMP 36.3; O2SAT 99
[2024-05-31] MEDS: Menthol/Lanolin/Calamine/Znox 113 GM Tube 1 APPLIC TOPICAL ×2 (15:09→23:18)
[2024-05-31] MEDS: Loperamide 2 MG Capsule PO ×2 (15:10→20:59)
[2024-05-31] MEDS: Gabapentin 300 MG Capsule PO (23:16)
[2024-05-31] MEDS: traZODone 50 MG Tablet PO (23:18)
[2024-05-31 23:26] VITALS: BP 144/77; PULSE 82; RESP 16; TEMP 37; O2SAT 95
[2024-06-01 05:20] VITALS: BP 136/82; PULSE 78; RESP 16; TEMP 36.2; O2SAT 98
[2024-06-01 06:00] VITALS: BMI 18.7
[2024-06-01 06:23] LABS: Absolute Lymphocyte Count 2.48 X10^3/uL (0.83-4.51); Absolute Neutrophil Count 2.7 X10^3/uL (2.0-7.7); Basophil# 0.03 X10^3/uL; Basophil% 0.5 % (0-1); Eosinophil# 0.21 X10^3/uL; Eosinophils% 3.5 % (0-5); Hematocrit 40.7 % (37-47); Hemoglobin 13.6 g/dL (12.0-15.0); Lymphocyte # 2.48 X10^3/ul (0.83-4.51); Lymphocyte % 41.1 % (19-41); Mean Corp Hgb Conc 33.4 g/dL (32-36); Mean Corpuscular Hgb 31.7 pg (27.0-32.0); Mean Corpuscular Volume 94.9 fL (81-99); Mean Platelet Vol. 8.8 fl (6.2-12.0); Monocyte# 0.64 X10^3/uL; Monocyte% 10.6 % (0-10); NRBC Flagged by Analyzer 0 % (0-5); Neutrophil # 2.67 X10^3/uL (2.7-7.7); Neutrophil % 44.1 % (47-70); Platelet Count 158 K/mm3 (150-450); RBC Distribution Width CV 12.8 % (11.6-14.6); RBC Distribution Width SD 43.9 fl (35.1-43.9); Red Blood Count 4.29 M/mm3 (4.2-5.4)
[2024-06-01] MEDS: Dicyclomine 10 MG Capsule 20 MG PO ×3 (06:50→21:40)
[2024-06-01] MEDS: Menthol/Lanolin/Calamine/Znox 113 GM Tube 1 APPLIC TOPICAL ×3 (06:51→21:45)
[2024-06-01] MEDS: Phenazopyridine 95 MG Tablet PO (06:51)
[2024-06-01 06:53] LABS: Anion Gap 5 (5-15); BUN 7 mg/dL (7-18); BUN/Creat Ratio 10.1 RATIO (10-20); Calcium,Total 8.8 mg/dL (8.5-10.1); Chloride 104 mmol/L (98-107); Creatinine, Serum 0.69 mg/dL (0.55-1.02); EST Glomerular Filtration Rate 86 mL/min (>60); Est Glom Filt Rate - Afr Amer 104 mL/min (>60); Estimated Creatinine Clearance 42.15 ml/min; Glucose 91 mg/dL (74-106); Potassium 4.4 mmol/L (3.5-5.1); Sodium Level 135 mmol/L (136-145)
--- NOTE | 2024-06-01 07:24 | PN.HOSP_ITS ---
Reason for Visit Reason for Visit: Diagnoses Nausea with vomiting, unspecified (05/29/24) Diarrhea, unspecified (05/29/24) Subjective Subjective Patient seen still has diarrhea but has had only 1 bowel movement so far this a.m. her overall clinical condition continues to improve. Did update patient's daughter on her condition the day prior Objective Data Objective Data Vital Signs: Vital Signs Temp Pulse Resp BP Pulse Ox O2 Del Method 97.2 F L 78 16 136/82 H 98 Room Air 06/01/24 05:20 06/01/24 05:20 06/01/24 05:20 06/01/24 05:20 06/01/24 05:20 06/01/24 05:20 Oxygen Delivery Method Room Air Weight: 51 kg Body Mass Index (BMI) 18.7 Intake & Output: Intake and Output for Last 24 Hours 05/30/24 05/31/24 06/01/24 23:59 23:59 23:59 Intake Total 2487.6633 / 2487.6633 1012.25 / 1012.25 700 / 700 Balance 2487.6633 / 2487.6633 1012.25 / 1012.25 700 / 700 Lab / Micro Data 06/01/24 05:48 06/01/24 05:48 Labs: Laboratory Results - last 24 hr 05/30/24 05:42: Diff Path Review Reviewed 05/31/24 05:54: Differential Comment SCANNED, Sodium 132 L, Potassium 4.2, Chloride 100, Carbon Dioxide 25.0, Anion Gap 7, BUN 4 L, Creatinine 0.63, Estim Creat Clear Calc 42.23, Est GFR (MDRD) Af Amer 115, Est GFR (MDRD) Non-Af 95, B UN/Creatinine Ratio 6.3 L, Glucose 92, Calcium 8.6, Phosphorus 3.5, Magnesium 2.6 06/01/24 05:48: WBC 6.0, RBC 4.29, Hgb 13.6, Hct 40.7, MCV 94.9, MCH 31.7, MCHC 33.4, RDW Std Deviation 43.9, RDW Coeff of Ester 12.8, Plt Count 158, MPV 8.8, Immature Gran % (Auto) 0.200, Neut % (Auto) 44.1 L, Lymph % (Auto) 41.1 H, [place] % (Auto) 10.6 H, Eos % (Auto) 3.5, Baso % (Auto) 0.5, Absolute Neuts (auto) 2.7, Absolute Lymphs (auto) 2.48, Nucleated RBC % 0, Sodium 135 L, Potassium 4.4, Chloride 104, Carbon Dioxide 26.0, Anion Gap 5, BUN 7, Creatinine 0.69, Estim Creat Clear Calc 42.15, Est GFR (MDRD) Af Amer 104, Est GFR (MDRD) Non-Af 86, BUN/Creatinine Ratio 10.1, Glucose 91, Calcium 8.8 Micro: Microbiology 05/30/24 09:50 Urine, Clean Catch Urine Culture - Preliminary Culture exhibits no growth. 05/31/24 05:45 Stool Stool Lactoferrin - Final 05/31/24 05:45 Stool Enteric Bacteriology - Final Rotavirus Physical Exam Narrative GENERAL: cooperative HEENT: Atraumatic; normocephalic EYES; Anicteric, Normal Conjunctiva NECK; supple, normal thyroid, RESPIRATORY: Diminished to auscultation CARDIOVASCULAR: Regular S1 S2, GI: soft, normoactive bowel sounds, : No Renal angle tenderness; EXTREMITIES: No edema, no clubbing, MUSCULOSKELETAL: no muscle wasting NEURO: Awake; no lateralizing signs. SKIN: No Rash PSYCH; Flat affect Assessment & Plan Assessment/Plan (1) Nausea vomiting and diarrhea: PLAN: Plan Patient is an 83-year-old lady who presented with nausea vomiting and diarrhea. Patient tested positive for rotavirus on 05/26/2024. Stool for C. difficile tested positive for antigen but negative toxin. 1. Acute viral gastroenteritis with rotavirus ? Patient has been admitted to regular nursing floor symptom management with IV fluid antinausea medication initiated with subsequent monitoring of electrolyte ? 05/31/2024;Patient seen complains of profound generalized weakness and continues to experience several loose bowel movement. Her repeat stool studies came back positive for rotavirus patient started on Imodium for sympton management -06/01/2024;Patient seen still has diarrhea but has had only 1 bowel movement so far this a.m. her overall clinical condition continues to improve. Did update patient's daughter on her condition the day prior 2. Hyponatremia Secondary to hypovolemic hyponatremia started on IV fluids subsequent monitoring of electrolyte 3. Hypokalemia ? Secondary to GI losses corrected per protocol 4. Hypomagnesemia -Corrected for protocol 5. Hypophosphatemia ? Corrected for protocol repeat labs ordered in a.m. for 6. Mild intermittent asthma ? Not in exacerbation aerosol treatments as needed 7. Anxiety disorder ? Patient is on buspirone 8. GERD ? Patient is on PPI continue 9. Peripheral neuropathy ? Patient is on gabapentin 10. DVT prophylaxis ? On enoxaparin 11. Suspected cystitis ? Sent for urinalysis started patient on ceftriaxone ? 05/31/2024 patient urinalysis negative for UTI antibiotics discontinued pending Time spent in the patient's overall evaluation,decision-making process, review of diagnostic data, adjustment of management, discussion with other providers, nursing nursing and ancillary staff involved in patient's care documentation, 38 Minutes Charges/Coding Visit Charges Inpatient E&M: 86551 [facility] Hosp L2
[2024-06-01 08:43] VITALS: BP 122/70; PULSE 93; RESP 16; TEMP 36.3; O2SAT 98
[2024-06-01] MEDS: Potassium Chloride Oral Tablet 20 MEQ PO ×2 (09:02→18:25)
[2024-06-01] MEDS: Vancomycin 125 MG/5 ML Susp PO.SYRINGE PO ×3 (09:03→21:40)
[2024-06-01] MEDS: busPIRone 5 MG Tablet PO ×2 (09:03→21:41)
[2024-06-01] MEDS: Enoxaparin 40 MG/0.4 ML Syringe SC (09:03)
[2024-06-01] MEDS: Magnesium Chloride 64 MG Delay Rel.Tablet 128 MG PO ×2 (09:03→21:41)
[2024-06-01] MEDS: Pantoprazole Sodium 40 MG Tablet PO (09:03)
[2024-06-01] MEDS: Na Biphos/Potassium Phosphate PACKET 1 PACKET PO ×2 (09:04→21:40)
[2024-06-01] MEDS: Loperamide 2 MG Capsule PO (09:05)
[2024-06-01 14:46] VITALS: BP 124/80; PULSE 85; RESP 16; TEMP 36.6; O2SAT 98
[2024-06-01] MEDS: Phenazopyridine 95 MG Tablet 190 MG PO ×2 (14:51→21:41)
[2024-06-01 21:32] VITALS: BP 142/77; PULSE 76; RESP 20; TEMP 36.6; O2SAT 96
[2024-06-01] MEDS: Gabapentin 300 MG Capsule PO (21:40)
[2024-06-01] MEDS: traZODone 50 MG Tablet PO (21:41)
[2024-06-01] MEDS: Ondansetron 4 MG/2 ML Vial IV (22:30)
[2024-06-02 03:30] VITALS: BP 136/82; PULSE 88; RESP 16; TEMP 37.2; O2SAT 96
[2024-06-02] MEDS: Phenazopyridine 95 MG Tablet 190 MG PO ×3 (05:33→21:46)
[2024-06-02] MEDS: Dicyclomine 10 MG Capsule 20 MG PO ×3 (05:33→21:46)
[2024-06-02] MEDS: Menthol/Lanolin/Calamine/Znox 113 GM Tube 1 APPLIC TOPICAL ×3 (05:34→21:56)
[2024-06-02 05:36] VITALS: BMI 18.7
[2024-06-02 06:45] LABS: Absolute Lymphocyte Count 1.77 X10^3/uL (0.83-4.51); Absolute Neutrophil Count 2.7 X10^3/uL (2.0-7.7); Basophil# 0.02 X10^3/uL; Basophil% 0.4 % (0-1); Eosinophil# 0.17 X10^3/uL; Eosinophils% 3.2 % (0-5); Hematocrit 42.7 % (37-47); Hemoglobin 14.2 g/dL (12.0-15.0); Lymphocyte # 1.77 X10^3/ul (0.83-4.51); Lymphocyte % 33.4 % (19-41); Mean Corp Hgb Conc 33.3 g/dL (32-36); Mean Corpuscular Hgb 31.6 pg (27.0-32.0); Mean Corpuscular Volume 95.1 fL (81-99); Mean Platelet Vol. 8.6 fl (6.2-12.0); Monocyte# 0.61 X10^3/uL; Monocyte% 11.5 % (0-10); NRBC Flagged by Analyzer 0 % (0-5); Neutrophil # 2.72 X10^3/uL (2.7-7.7); Neutrophil % 51.3 % (47-70); Platelet Count 171 K/mm3 (150-450); RBC Distribution Width CV 12.7 % (11.6-14.6); RBC Distribution Width SD 45.1 fl (35.1-43.9); Red Blood Count 4.49 M/mm3 (4.2-5.4); White Blood Count 5.3 K/mm3 (4.4-11.0)
[2024-06-02 07:32] LABS: Anion Gap 7 (5-15); BUN 9 mg/dL (7-18); BUN/Creat Ratio 10.4 RATIO (10-20); Calcium,Total 8.9 mg/dL (8.5-10.1); Chloride 104 mmol/L (98-107); Creatinine, Serum 0.86 mg/dL (0.55-1.02); EST Glomerular Filtration Rate 66 mL/min (>60); Est Glom Filt Rate - Afr Amer 80 mL/min (>60); Estimated Creatinine Clearance 39.28 ml/min; Glucose 97 mg/dL (74-106); Potassium 4.2 mmol/L (3.5-5.1); Sodium Level 136 mmol/L (136-145)
[2024-06-02 07:35] VITALS: O2SAT 95
[2024-06-02 08:00] VITALS: BP 125/62; PULSE 73; RESP 14; TEMP 36.3; O2SAT 95
[2024-06-02] MEDS: Enoxaparin 40 MG/0.4 ML Syringe SC (08:12)
[2024-06-02] MEDS: busPIRone 5 MG Tablet PO ×2 (08:13→21:46)
[2024-06-02] MEDS: Pantoprazole Sodium 40 MG Tablet PO (08:13)
[2024-06-02] MEDS: Magnesium Chloride 64 MG Delay Rel.Tablet 128 MG PO ×2 (08:13→21:46)
[2024-06-02] MEDS: Potassium Chloride Oral Tablet 20 MEQ PO ×2 (08:13→16:28)
[2024-06-02] MEDS: Vancomycin 125 MG/5 ML Susp PO.SYRINGE PO ×4 (08:14→21:47)
[2024-06-02] MEDS: Na Biphos/Potassium Phosphate PACKET 1 PACKET PO ×2 (08:14→21:46)
[2024-06-02] MEDS: 0.9% Saline Lock 10 ML Syringe IV ×2 (08:28→23:11)
[2024-06-02] MEDS: Ondansetron 4 MG/2 ML Vial IV ×2 (08:28→23:10)
--- NOTE | 2024-06-02 10:03 | PN.HOSP_ITS ---
Reason for Visit Reason for Visit: Diagnoses Nausea with vomiting, unspecified (05/29/24) Diarrhea, unspecified (05/29/24) Subjective Subjective Patient seen plan was for patient to have been assessed for possible discharge this a.m. however she is complaining of intractable nausea and vomiting. Objective Data Objective Data Vital Signs: Vital Signs Temp Pulse Resp BP Pulse Ox O2 Del Method 97.4 F L 73 14 125/62 H 95 Room Air 06/02/24 08:00 06/02/24 08:00 06/02/24 08:00 06/02/24 08:00 06/02/24 08:00 06/02/24 08:00 Oxygen Delivery Method Room Air Weight: 51.1 kg Body Mass Index (BMI) 18.7 Intake & Output: Intake and Output for Last 24 Hours 05/31/24 06/01/24 06/02/24 23:59 23:59 23:59 Intake Total 1012.25 / 1012.25 2552 / 2552 775 / 775 Balance 1012.25 / 1012.25 2552 / 2552 775 / 775 Lab / Micro Data 06/02/24 06:38 06/02/24 06:38 Labs: Laboratory Results - last 24 hr 06/02/24 06:38: WBC 5.3, RBC 4.49, Hgb 14.2, Hct 42.7, MCV 95.1, MCH 31.6, MCHC 33.3, RDW Std Deviation 45.1 H, RDW Coeff of Ester 12.7, Plt Count 171, MPV 8.6, Immature Gran % (Auto) 0.200, Neut % (Auto) 51.3, Lymph % (Auto) 33.4, [place] % (Auto) 11.5 H, Eos % (Auto) 3.2, Baso % (Auto) 0.4, Absolute Neuts (auto) 2.7, Absolute Lymphs (auto) 1.77, Nucleated RBC % 0, Sodium 136, Potassium 4.2, Chloride 104, Carbon Dioxide 25.0, Anion Gap 7, BUN 9, Creatinine 0.86, Estim Creat Clear Calc 39.28, Est GFR (MDRD) Af Amer 80, Est GFR (MDRD) Non-Af 66, BUN/Creatinine Ratio 10.4, Glucose 97, Calcium 8.9 Micro: Microbiology 05/30/24 09:50 Urine, Clean Catch Urine Culture - Final Culture exhibits no growth. 05/31/24 05:45 Stool Stool Lactoferrin - Final 05/31/24 05:45 Stool Enteric Bacteriology - Final Rotavirus Physical Exam Narrative GENERAL: cooperative HEENT: Atraumatic; normocephalic EYES; Anicteric, Normal Conjunctiva NECK; supple, normal thyroid, RESPIRATORY: Diminished to auscultation CARDIOVASCULAR: Regular S1 S2, GI: soft, normoactive bowel sounds, : No Renal angle tenderness; EXTREMITIES: No edema, no clubbing, MUSCULOSKELETAL: no muscle wasting NEURO: Awake; no lateralizing signs. SKIN: No Rash PSYCH; Flat affect Assessment & Plan Assessment/Plan (1) Nausea vomiting and diarrhea: PLAN: Plan Patient is an 83-year-old lady who presented with nausea vomiting and diarrhea. Patient tested positive for rotavirus on 05/26/2024. Stool for C. difficile tested positive for antigen but negative toxin. 1. Acute viral gastroenteritis with rotavirus ? Patient has been admitted to regular nursing floor symptom management with IV fluid antinausea medication initiated with subsequent monitoring of electrolyte ? 05/31/2024;Patient seen complains of profound generalized weakness and continues to experience several loose bowel movement. Her repeat stool studies came back positive for rotavirus patient started on Imodium for sympton management -06/01/2024;Patient seen still has diarrhea but has had only 1 bowel movement so far this a.m. her overall clinical condition continues to improve. Did update patient's daughter on her condition the day prior ? 06/02/2024 ? 06/02/2024; patient complaining of nausea and vomiting this a.m. plan is to continue with symptom management 2. Hyponatremia Secondary to hypovolemic hyponatremia started on IV fluids subsequent monitoring of electrolyte 3. Hypokalemia ? Secondary to GI losses corrected per protocol 4. Hypomagnesemia -Corrected for protocol 5. Hypophosphatemia ? Corrected for protocol repeat labs ordered in a.m. for 6. Mild intermittent asthma ? Not in exacerbation aerosol treatments as needed 7. Anxiety disorder ? Patient is on buspirone 8. GERD ? Patient is on PPI continue 9. Peripheral neuropathy ? Patient is on gabapentin 10. DVT prophylaxis ? On enoxaparin 11. Suspected cystitis ? Sent for urinalysis started patient on ceftriaxone ? 05/31/2024 patient urinalysis negative for UTI antibiotics discontinued pending Time spent in the patient's overall evaluation,decision-making process, review of diagnostic data, adjustment of management, discussion with other providers, nursing nursing and ancillary staff involved in patient's care documentation, 38 Minutes Charges/Coding Visit Charges Inpatient E&M: 08464 Subs Hosp L2
[2024-06-02] MEDS: Loperamide 2 MG Capsule PO ×3 (12:07→23:10)
[2024-06-02 14:00] VITALS: BP 109/60; PULSE 79; RESP 16; TEMP 36.5; O2SAT 96
[2024-06-02 19:48] VITALS: BP 107/63; PULSE 79; RESP 16; TEMP 36.7; O2SAT 94
[2024-06-02] MEDS: traZODone 50 MG Tablet PO (21:46)
[2024-06-02] MEDS: Gabapentin 300 MG Capsule PO (21:47)
[2024-06-02 23:22] VITALS: BP 99/55; PULSE 78; RESP 16; TEMP 36.6; O2SAT 94
[2024-06-03] MEDS: Phenazopyridine 95 MG Tablet 190 MG PO (05:06)
[2024-06-03] MEDS: Dicyclomine 10 MG Capsule 20 MG PO ×3 (05:06→22:25)
[2024-06-03 05:10] VITALS: BP 125/68; PULSE 68; RESP 16; TEMP 36.3; O2SAT 93
[2024-06-03] MEDS: Loperamide 2 MG Capsule PO ×2 (05:23→17:56)
[2024-06-03 05:25] VITALS: BMI 18.3
[2024-06-03 08:00] VITALS: BP 118/66; PULSE 71; RESP 13; TEMP 36.5; O2SAT 93
[2024-06-03] MEDS: Vancomycin 125 MG/5 ML Susp PO.SYRINGE PO ×4 (08:05→22:38)
[2024-06-03] MEDS: Enoxaparin 40 MG/0.4 ML Syringe SC (08:05)
[2024-06-03] MEDS: Magnesium Chloride 64 MG Delay Rel.Tablet 128 MG PO ×2 (08:06→22:25)
[2024-06-03] MEDS: busPIRone 5 MG Tablet PO ×2 (08:06→22:25)
[2024-06-03] MEDS: Pantoprazole Sodium 40 MG Tablet PO (08:06)
[2024-06-03] MEDS: Na Biphos/Potassium Phosphate PACKET 1 PACKET PO ×2 (08:06→22:26)
[2024-06-03] MEDS: Potassium Chloride Oral Tablet 20 MEQ PO ×2 (08:06→17:11)
[2024-06-03] MEDS: Ensure Plus High Protein 120 ML LIQUID PO ×3 (08:06→17:11)
--- NOTE | 2024-06-03 08:15 | PCM.PN.HOSP ---
Reason for Visit Reason for Visit: Diagnoses Nausea with vomiting, unspecified (05/29/24) Diarrhea, unspecified (05/29/24) Objective Data Objective Data Vital Signs: Vital Signs Temp Pulse Resp BP Pulse Ox O2 Del Method 97.7 F L 71 13 118/66 93 Room Air 06/03/24 08:00 06/03/24 08:00 06/03/24 08:00 06/03/24 08:00 06/03/24 08:00 06/03/24 08:00 Oxygen Delivery Method Room Air Weight: 49.9 kg Body Mass Index (BMI) 18.3 Intake & Output: Intake and Output for Last 24 Hours 06/01/24 06/02/24 06/03/24 23:59 23:59 23:59 Intake Total 2552 / 2552 2725 / 2725 400 / 400 Balance 2552 / 2552 2725 / 2725 400 / 400 Lab / Micro Data 06/02/24 06:38 06/02/24 06:38 Micro: Microbiology 05/30/24 09:50 Urine, Clean Catch Urine Culture - Final Culture exhibits no growth. 05/31/24 05:45 Stool Stool Lactoferrin - Final 05/31/24 05:45 Stool Enteric Bacteriology - Final Rotavirus Physical Exam Narrative GENERAL: cooperative HEENT: Atraumatic; normocephalic EYES; Anicteric, Normal Conjunctiva NECK; supple, normal thyroid, RESPIRATORY: Diminished to auscultation CARDIOVASCULAR: Regular S1 S2, GI: soft, normoactive bowel sounds, : No Renal angle tenderness; EXTREMITIES: No edema, no clubbing, MUSCULOSKELETAL: no muscle wasting NEURO: Awake; no lateralizing signs. SKIN: No Rash PSYCH; Flat affect Assessment & Plan Assessment/Plan (1) Nausea vomiting and diarrhea: PLAN: Plan Patient is an 83-year-old lady who presented with nausea vomiting and diarrhea. Patient tested positive for rotavirus on 05/26/2024. Stool for C. difficile tested positive for antigen but negative toxin. 1. Acute viral gastroenteritis with rotavirus ? Patient has been admitted to regular nursing floor symptom management with IV fluid antinausea medication initiated with subsequent monitoring of electrolyte ? 05/31/2024;Patient seen complains of profound generalized weakness and continues to experience several loose bowel movement. Her repeat stool studies came back positive for rotavirus patient started on Imodium for sympton management -06/01/2024;Patient seen still has diarrhea but has had only 1 bowel movement so far this a.m. her overall clinical condition continues to improve. Did update patient's daughter on her condition the day prior ? 06/02/2024 ? 06/02/2024; patient complaining of nausea and vomiting this a.m. plan is to continue with symptom management ? 06/03/2024; patient diarrhea still persist given her recent history of C. difficile colitis and order was placed to send stool sample to rule out recurrent C. difficile. Patient on admission had a positive antigen but toxin was negative 2. Hyponatremia Secondary to hypovolemic hyponatremia started on IV fluids subsequent monitoring of electrolyte 3. Hypokalemia ? Secondary to GI losses corrected per protocol 4. Hypomagnesemia -Corrected for protocol 5. Hypophosphatemia ? Corrected for protocol repeat labs ordered in a.m. for 6. Mild intermittent asthma ? Not in exacerbation aerosol treatments as needed 7. Anxiety disorder ? Patient is on buspirone 8. GERD ? Patient is on PPI continue 9. Peripheral neuropathy ? Patient is on gabapentin 10. DVT prophylaxis ? On enoxaparin 11. Suspected cystitis ? Sent for urinalysis started patient on ceftriaxone ? 05/31/2024 patient urinalysis negative for UTI antibiotics discontinued pending Time spent in the patient's overall evaluation,decision-making process, review of diagnostic data, adjustment of management, discussion with other providers, nursing nursing and ancillary staff involved in patient's care documentation, 38 Minutes Charges/Coding Visit Charges Inpatient E&M: 25053 [facility] Hosp L2
--- NOTE | 2024-06-03 09:51 | NS ---
Pt's daughter, Danica Cortez, left a voicemail on inpatient RD phone wanting food items pt can have when d/c. RD called Danica ([phone]) today and gave low fiber food examples such as bananas, rice, white bread, applesauce, pudding, jello, and banatrol supplement. Danica asked for a low fiber handout to be given to pt and also sent to her email [email or web address]. Provided information via email and printed material left with pt along with samples of ensure clear. RD contact information provided, daughter can call when needed. Reviewed and approved by Radha Godoy, MS, RDN, LD.
--- NOTE | 2024-06-03 11:26 | NURSING ---
updated pts daughter, Danica
[2024-06-03 13:57] VITALS: BP 106/66; PULSE 78; RESP 14; TEMP 36.6; O2SAT 98
[2024-06-03] MEDS: Ondansetron 4 MG/2 ML Vial IV (20:11)
[2024-06-03] MEDS: 0.9% Saline Lock 10 ML Syringe IV (20:12)
[2024-06-03 20:19] VITALS: BP 116/59; PULSE 78; RESP 16; TEMP 36.8; O2SAT 95
[2024-06-03] MEDS: traZODone 50 MG Tablet PO (22:25)
[2024-06-03] MEDS: MELATONIN 3 MG TABLET PO (22:26)
[2024-06-03] MEDS: Gabapentin 300 MG Capsule PO (22:26)
[2024-06-03] MEDS: Menthol/Lanolin/Calamine/Znox 113 GM Tube 1 APPLIC TOPICAL (22:34)
[2024-06-03 23:01] VITALS: BP 116/68; PULSE 79; RESP 15; TEMP 36.3; O2SAT 94
[2024-06-04] MEDS: Dicyclomine 10 MG Capsule 20 MG PO ×3 (05:00→21:39)
[2024-06-04 05:03] VITALS: BP 119/69; PULSE 76; RESP 16; TEMP 36.6; O2SAT 94
[2024-06-04 05:04] VITALS: BMI 18.8
[2024-06-04 08:14] VITALS: BP 114/67; PULSE 70; RESP 16; TEMP 36.6; O2SAT 92
[2024-06-04] MEDS: Potassium Chloride Oral Tablet 20 MEQ PO ×2 (08:22→17:52)
[2024-06-04] MEDS: Enoxaparin 40 MG/0.4 ML Syringe SC (10:22)
[2024-06-04] MEDS: Pantoprazole Sodium 40 MG Tablet PO (10:23)
[2024-06-04] MEDS: Vancomycin 125 MG/5 ML Susp PO.SYRINGE PO ×4 (10:23→21:39)
[2024-06-04] MEDS: Magnesium Chloride 64 MG Delay Rel.Tablet 128 MG PO ×2 (10:23→21:39)
--- NOTE | 2024-06-04 10:30 | CASEMGMT ---
JOSE MANUEL MURRELL Assessment: Face to Face with pt for initial transition planning/care coordination assessment. RN NYASIA introduced self and role at [facility], pt voices understanding and consents to assessment. Pt lying in bed in no distress. Pt is A&O x4 and answers all questions appropriately at this time. Care providers, pharmacy, and demographics verified/updated. Strata: 2 Admitting Dx: N/V/D PCP: Jens Specialists: Friend, Gastrologist Preferred Pharmacy: [facility] Insurance: [employer] [facility] Prescription Benefit: yes LNOK: [facility] Living Arrangements: Pt lives with Sister in a 1 level home with no steps to enter. ADLs: Pt is I at baseline. Transportation: Pt drives self and denies concerns with transportation. DME: Pt denies DME HHC/SNF: Pt denies HX of. Pt states no concerns with going home at time of dc. Pt states no further concerns/needs. CM to follow. Advised pt to ask CM if any further question/concerns/needs arise, voices understanding. Pt Goal: Home Plan: Home with family support. Pt 6 clicks are 22. Charlette RICHARD CM
[2024-06-04] MEDS: Na Biphos/Potassium Phosphate PACKET 1 PACKET PO ×2 (11:35→21:39)
[2024-06-04] MEDS: busPIRone 5 MG Tablet PO ×2 (11:36→21:39)
[2024-06-04] MEDS: Loperamide 2 MG Capsule PO (13:03)
--- NOTE | 2024-06-04 13:49 | PCM.PN.HOSP ---
Reason for Visit Reason for Visit: Diagnoses Nausea with vomiting, unspecified (06/03/24) Diarrhea, unspecified (06/03/24) Objective Data Objective Data Vital Signs: Vital Signs Temp Pulse Resp BP Pulse Ox O2 Del Method 97.8 F 70 16 114/67 92 Room Air 06/04/24 08:14 06/04/24 08:14 06/04/24 08:14 06/04/24 08:14 06/04/24 08:14 06/04/24 08:14 Oxygen Delivery Method Room Air Weight: 113 lb 5.082 oz Body Mass Index (BMI) 18.8 Intake & Output: Intake and Output for Last 24 Hours 06/02/24 06/03/24 06/04/24 23:59 23:59 23:59 Intake Total 2725 / 2725 800 / 800 600 / 600 Balance 2725 / 2725 800 / 800 600 / 600 Lab / Micro Data 06/02/24 06:38 06/02/24 06:38 Micro: Microbiology 05/31/24 08:46 Stool Ova and Parasites - Final 06/03/24 14:05 Stool C. difficile GDH Antigen & Toxins - Final 06/03/24 14:05 Stool Clostridioides difficile (PCR) - Final 05/30/24 09:50 Urine, Clean Catch Urine Culture - Final Culture exhibits no growth. 05/31/24 05:45 Stool Stool Lactoferrin - Final 05/31/24 05:45 Stool Enteric Bacteriology - Final Rotavirus Physical Exam Narrative Seen and examined. Patient showed me her stool in the toilet. Some solid, thin consistency and fragments. No obvious blood. Patient is still having diarrhea for 5 days. Exhausted and weak. No fever Physical exam General: Alert, Oriented x3, Cooperative. Fatigue HEENT: Atraumatic, PERRLA, EOMI, Normocephalic Oral: Oral mucosa dry. No Gingival or Mucosal Lesions/ Ulcerations Neck: Supple, No JVD, Negative Carotid Bruits Chest wall/Lungs: Air entry diminished in bilateral lung bases. No crepitation/rhonchi Cardiovascular: Regular rate, Regular Rhythm, Normal S1, Normal S2, No M/G/R Abdomen: Bowel Sounds hyper, soft, Non Tender, Non-Distended : No dysuria. No renal angle tenderness. No suprapubic tenderness. Extremities: No edema, Capillary Refill Less than 3 Seconds Skin: No rashes, No breakdown Musculoskeletal: No Tenderness to Palpation of Joints or Extremities Neurological: Cranial nerves II-XII grossly intact, DTR 2+/4. No acute focal neurological deficit. Psych/Mental Status: Flat affect. Assessment & Plan Assessment/Plan (1) Nausea vomiting and diarrhea: PLAN: Plan Patient is an 83-year-old lady who presented with nausea vomiting and diarrhea. Patient tested positive for rotavirus on 05/26/2024. Stool for C. difficile tested positive for antigen but negative toxin. 1. Acute viral gastroenteritis with rotavirus complicated with secondary acute C. difficile infection/colitis ? Patient has been admitted to regular nursing floor symptom management with IV fluid antinausea medication initiated with subsequent monitoring of electrolyte Her repeat stool studies came back positive for rotavirus patient started on Imodium for sympton management . The patient diarrhea still persist given her recent history of C. difficile colitis and order was placed to send stool sample to rule out recurrent C. difficile. Patient on admission had a positive antigen but toxin was negative 06/04: Patient still has diarrhea watery/thin and consented with some fecal matter. No obvious blood. Started on vancomycin oral for symptomatic relief and control diarrhea. Milligrams oral rehydration. 2. Hyponatremia Secondary to hypovolemic hyponatremia started on IV fluids subsequent monitoring of electrolyte 06/04: BMP ordered. 3. Hypokalemia ? Secondary to GI losses corrected per protocol 4. Hypomagnesemia -Corrected for protocol 5. Hypophosphatemia ? Corrected for protocol repeat labs ordered in a.m. for 6. Mild intermittent asthma ? Not in exacerbation aerosol treatments as needed 7. Anxiety disorder ? Patient is on buspirone 8. GERD ? Patient is on PPI continue 9. Peripheral neuropathy ? Patient is on gabapentin 10. DVT prophylaxis ? On enoxaparin 11. Abnormal UA ? Sent for urinalysis started patient on ceftriaxone ? Urine culture shows no growth. UTI ruled out Charges/Coding Visit Charges Inpatient E&M: 60368 Subs Hosp L2
[2024-06-04 15:23] LABS: Absolute Neutrophil Count 3.7 X10^3/uL (2.0-7.7); Basophil# 0.02 X10^3/uL; Basophil% 0.3 % (0-1); Eosinophil# 0.21 X10^3/uL; Eosinophils% 3.1 % (0-5); Hematocrit 38.7 % (37-47); Hemoglobin 13.2 g/dL (12.0-15.0); Lymphocyte % 29.9 % (19-41); Mean Corp Hgb Conc 34.1 g/dL (32-36); Mean Corpuscular Hgb 32.4 pg (27.0-32.0); Mean Corpuscular Volume 94.9 fL (81-99); Mean Platelet Vol. 9.4 fl (6.2-12.0); Monocyte# 0.75 X10^3/uL; Monocyte% 11.2 % (0-10); NRBC Flagged by Analyzer 0 % (0-5); Neutrophil % 55.2 % (47-70); Platelet Count 247 K/mm3 (150-450); RBC Distribution Width CV 12.7 % (11.6-14.6); RBC Distribution Width SD 44.3 fl (35.1-43.9); Red Blood Count 4.08 M/mm3 (4.2-5.4); White Blood Count 6.7 K/mm3 (4.4-11.0)
[2024-06-04] MEDS: Lactobacillis Acidophilus 1 CAP PO ×2 (15:24→21:39)
[2024-06-04] MEDS: Menthol/Lanolin/Calamine/Znox 113 GM Tube 1 APPLIC TOPICAL ×2 (15:35→21:47)
[2024-06-04 16:08] LABS: Anion Gap 5 (5-15); BUN 16 mg/dL (7-18); Calcium,Total 8.9 mg/dL (8.5-10.1); Chloride 100 mmol/L (98-107); EST Glomerular Filtration Rate 56 mL/min (>60); Est Glom Filt Rate - Afr Amer 68 mL/min (>60); Estimated Creatinine Clearance 33.98 ml/min; Glucose 92 mg/dL (74-106); Magnesium 2.3 mg/dL (1.6-2.6); Phosphorus 4.8 mg/dL (2.5-4.9); Potassium 4.3 mmol/L (3.5-5.1); Sodium Level 136 mmol/L (136-145)
[2024-06-04 19:58] VITALS: BP 129/64; PULSE 76; RESP 16; TEMP 36.7; O2SAT 98
[2024-06-04] MEDS: Gabapentin 300 MG Capsule PO (21:39)
[2024-06-04] MEDS: traZODone 50 MG Tablet PO (21:39)
[2024-06-04] MEDS: Ondansetron 4 MG/2 ML Vial IV (22:41)
[2024-06-04] MEDS: 0.9% Saline Lock 10 ML Syringe IV (22:42)
[2024-06-05 02:02] VITALS: BP 121/71; PULSE 68; RESP 16; TEMP 36.4; O2SAT 94
[2024-06-05] MEDS: Dicyclomine 10 MG Capsule 20 MG PO ×3 (05:33→21:08)
[2024-06-05] MEDS: Lactobacillis Acidophilus 1 CAP PO ×4 (05:33→21:08)
[2024-06-05] MEDS: Menthol/Lanolin/Calamine/Znox 113 GM Tube 1 APPLIC TOPICAL ×3 (05:35→21:13)
[2024-06-05 05:37] VITALS: BMI 19.5
[2024-06-05 08:49] VITALS: BP 119/51; PULSE 55; RESP 16; TEMP 36.6; O2SAT 98
[2024-06-05] MEDS: Magnesium Chloride 64 MG Delay Rel.Tablet 128 MG PO ×2 (08:59→21:08)
[2024-06-05] MEDS: Na Biphos/Potassium Phosphate PACKET 1 PACKET PO ×2 (08:59→21:06)
[2024-06-05] MEDS: Pantoprazole Sodium 40 MG Tablet PO (08:59)
[2024-06-05] MEDS: busPIRone 5 MG Tablet PO ×2 (09:00→21:08)
[2024-06-05] MEDS: Vancomycin 125 MG/5 ML Susp PO.SYRINGE PO ×4 (09:00→21:09)
[2024-06-05] MEDS: Potassium Chloride Oral Tablet 20 MEQ PO ×2 (09:00→16:41)
[2024-06-05] MEDS: Enoxaparin 40 MG/0.4 ML Syringe SC (09:00)
--- NOTE | 2024-06-05 11:49 | PN.HOSP_ITS ---
Reason for Visit Reason for Visit: Diagnoses Nausea with vomiting, unspecified (06/03/24) Diarrhea, unspecified (06/03/24) Objective Data Objective Data Vital Signs: Vital Signs Temp Pulse Resp BP Pulse Ox O2 Del Method 97.9 F 55 L 16 119/51 L 98 Room Air 06/05/24 08:49 06/05/24 08:49 06/05/24 08:49 06/05/24 08:49 06/05/24 08:49 06/05/24 08:49 Oxygen Delivery Method Room Air Weight: 117 lb 8.102 oz Body Mass Index (BMI) 19.5 Intake & Output: Intake and Output for Last 24 Hours 06/03/24 06/04/24 06/05/24 23:59 23:59 23:59 Intake Total 800 / 800 1000 / 1000 600 / 600 Balance 800 / 800 1000 / 1000 600 / 600 Lab / Micro Data 06/04/24 15:12 06/04/24 15:12 Labs: Laboratory Results - last 24 hr 06/04/24 15:12: WBC 6.7, RBC 4.08 L, Hgb 13.2, Hct 38.7, MCV 94.9, MCH 32.4 H, MCHC 34.1, RDW Std Deviation 44.3 H, RDW Coeff of Ester 12.7, Plt Count 247, MPV 9.4, Immature Gran % (Auto) 0.300, Neut % (Auto) 55.2, Lymph % (Auto) 29.9, [place] % (Auto) 11.2 H, Eos % (Auto) 3.1, Baso % (Auto) 0.3, Absolute Neuts (auto) 3.7, Absolute Lymphs (auto) 2.00, Nucleated RBC % 0, Sodium 136, Potassium 4.3, Chloride 100, Carbon Dioxide 31.0, Anion Gap 5, BUN 16, Creatinine 1.00, Estim Creat Clear Calc 33.98, Est GFR (MDRD) Af Amer 68, Est GFR (MDRD) Non-Af 56 L, BUN/Creatinine Ratio 16.0, Glucose 92, Calcium 8.9, Phosphorus 4.8, Magnesium 2.3 Micro: Microbiology 05/31/24 08:46 Stool Ova and Parasites - Final 06/03/24 14:05 Stool C. difficile GDH Antigen & Toxins - Final 06/03/24 14:05 Stool Clostridioides difficile (PCR) - Final 05/30/24 09:50 Urine, Clean Catch Urine Culture - Final Culture exhibits no growth. 05/31/24 05:45 Stool Stool Lactoferrin - Final 05/31/24 05:45 Stool Enteric Bacteriology - Final Rotavirus Physical Exam Narrative Seen and examined. Patient is still having diarrhea. She states every half an hour but I feel like diarrhea is getting better although slowly. Consistency of the stool also like pipestem, tape like but not watery liquid. Patient showed me her stool in the toilet. Some solid, thin consistency and fragments. No obvious blood. Patient is still having diarrhea for 5 days. Exhausted and weak. No fever Physical exam General: Alert, Oriented x3, Cooperative. Fatigue HEENT: Atraumatic, PERRLA, EOMI, Normocephalic Oral: Oral mucosa dry. No Gingival or Mucosal Lesions/ Ulcerations Neck: Supple, No JVD, Negative Carotid Bruits Chest wall/Lungs: Air entry diminished in bilateral lung bases. No crepitation/rhonchi Cardiovascular: Regular rate, Regular Rhythm, Normal S1, Normal S2, No M/G/R Abdomen: Bowel Sounds hyper, soft, Non Tender, mild distention. : No dysuria. No renal angle tenderness. No suprapubic tenderness. Extremities: No edema, Capillary Refill Less than 3 Seconds Skin: No rashes, No breakdown Musculoskeletal: No Tenderness to Palpation of Joints or Extremities Neurological: Cranial nerves II-XII grossly intact, DTR 2+/4. No acute focal neurological deficit. Psych/Mental Status: Flat affect. Assessment & Plan Assessment/Plan (1) Nausea vomiting and diarrhea: PLAN: Plan Patient is an 83-year-old lady who presented with nausea vomiting and diarrhea. Patient tested positive for rotavirus on 05/26/2024. Stool for C. difficile tested positive for antigen but negative toxin. 1. Acute viral gastroenteritis with rotavirus complicated with secondary acute C. difficile infection/colitis ? Patient has been admitted to regular nursing floor symptom management with IV fluid antinausea medication initiated with subsequent monitoring of electrolyte Her repeat stool studies came back positive for rotavirus patient started on Imodium for sympton management . The patient diarrhea still persist given her recent history of C. difficile colitis and order was placed to send stool sample to rule out recurrent C. difficile. Patient on admission had a positive antigen but toxin was negative 06/04: Patient still has diarrhea watery/thin and consented with some fecal matter. No obvious blood. Started on vancomycin oral for symptomatic relief and control diarrhea. Milligrams oral rehydration. 06/05: Patient is still complaining of diarrhea although consistency improving. Continue oral vancomycin, probiotic. Patient was on Imodium before discontinued yesterday. Started on Lomotil as patient frustrated with diarrhea. 2. Hyponatremia Secondary to hypovolemic hyponatremia started on IV fluids subsequent monitoring of electrolyte 06/04: BMP ordered. 06/05: Serum sodium, potassium and chloride bicarb all in normal range. BUN/creatinine normal. Serum magnesium and phosphorus level normal. 3. Hypokalemia ? Secondary to GI losses corrected per protocol 4. Hypomagnesemia -Corrected for protocol 5. Hypophosphatemia ? Corrected for protocol repeat labs ordered in a.m. for 6. Mild intermittent asthma ? Not in exacerbation aerosol treatments as needed 7. Anxiety disorder ? Patient is on buspirone 8. GERD ? Patient is on PPI continue 9. Peripheral neuropathy ? Patient is on gabapentin 10. DVT prophylaxis ? On enoxaparin 11. Abnormal UA ? Sent for urinalysis started patient on ceftriaxone ? Urine culture shows no growth. UTI ruled out Charges/Coding Visit Charges Inpatient E&M: 54375 Subs Hosp L2
[2024-06-05 14:30] VITALS: BP 133/71; PULSE 79; RESP 20; TEMP 36.5; O2SAT 97
[2024-06-05 14:34] VITALS: PULSE 80
--- NOTE | 2024-06-05 14:46 | CON.PCM.GI_ITS ---
HPI Consult Data Date of Consult: 06/05/24 HPI Narrative Reason for Consultation: Diarrhea HPI Narrative: TIFFANI MA, is a 83-year-old lady with hx of C. difficile diarrhea/colitis who presents to the [facility] ED on 05/29/2024 with history of persistent nausea, emesis and diarrhea ongoing over the last several days with associated diffuse abdominal discomfort reporting her emesis and diarrhea. She also admitted to a approximate 10 pound weight loss over the last 2 weeks initially evaluated in the ED on 06/16. Her stool studies at that time positive for rotavirus and C. difficile antigen positive but negative for toxin with urine concerning for UTI with nitrites discharged home on oral vancomycin, Zofran and Lomotil. She has continued to take the oral vancomycin however she has had no improvement in her symptoms. From review of records 05/27/2024 urine obtained by catheter with noted less than 1000 E. coli growth, 05/26/2024 positive fecal WBC lactoferrin present, enteric with rotavirus detected, C. difficile antigen positive however C. difficile toxin negative and C. difficile PCR positive. Her stools are starting to thicken up. She was started on Lomotil. CT scan abdomen pelvis on 05/29/2024: Mild fluid distention of bowel and mild sigmoid mural edema, suggesting mild enterocolitis. Colonic diverticulosis without acute diverticulitis [facility] Medical History CKD (chronic kidney disease), stage II Anxiety GI bleed Wears glasses Wears partial dentures Non-smoker Diverticulosis Acute depression Acute gastritis Nausea IBS (irritable bowel syndrome) Wears dentures Former smoker Gastroesophageal reflux disease Chronic constipation Diarrhea GERD (gastroesophageal reflux disease) Anxiety History of bronchitis Asthma Home Medications ?Medication ?Instructions ?Recorded ?Last Taken ?Type trazodone 100 mg tablet 50 - 100 mg PO QHS sleep 04/21/19 05/28/24 History gabapentin 300 mg capsule 300 - 600 mg PO DAILY 08/19/22 05/28/24 History buspirone 5 mg tablet 5 mg PO BID #60 tabs 08/25/23 05/28/24 Rx dicyclomine 20 mg tablet 20 mg PO TID 02/23/24 05/29/24 History omeprazole 20 mg capsule,delayed 20 mg PO QDAY 02/23/24 Unknown History release budesonide 3 mg 3 mg PO QAM #30 ea 02/28/24 05/29/24 Rx capsule,delayed,extended release hyoscyamine sulfate 0.125 mg tablet 0.125 mg PO BID dyspepsia #60 tabs 03/02/24 Unknown Rx diphenoxylate-atropine 2.5 1 tab PO 4X/DAY PRN diarrhea 5 05/27/24 Unknown Rx mg-0.025 mg tablet (Lomotil) days #20 tabs ondansetron 4 mg disintegrating 4 mg PO TID PRN nausea and 05/27/24 Unknown Rx tablet vomiting #21 tabs vancomycin 125 mg capsule 125 mg PO 4X/DAY 10 days #40 caps 05/27/24 Unknown Rx Allergy/AdvReac Type Severity Reaction Status Date / Time cephalexin Allergy Intermediate Other Verified 05/29/24 11:05 nitrofurantoin (From Allergy Intermediate Other Verified 05/29/24 11:05 Macrobid) prednisone Allergy Intermediate Other Verified 05/29/24 11:05 Sulfa (Sulfonamide Allergy Intermediate Other Verified 05/29/24 11:05 Antibiotics) erythromycin base (From Allergy Nausea Verified 05/29/24 11:05 E-Mycin) Penicillins Allergy Vomiting Verified 05/29/24 11:05 Family History Father , 57 Heart disease Myocardial infarction Mother Alzheimer disease Surgical History History of appendectomy History of colonoscopy (~2010) History of esophagogastroduodenoscopy (EGD) (~2013) History of breast implant removal History of breast implant History of hysterectomy with oophorectomy History of cholecystectomy History of tonsillectomy and adenoidectomy Social History household members: none Smoking Status: Former smoker alcohol intake: never substance use type: does not use ROS ROS Narrative Admission Review of Systems: CONSTITUTIONAL: No weight loss, fever, chills, + weakness or fatigue. HEENT: Eyes: No visual loss, blurred vision, double vision or yellow sclerae. Ears, Nose, Throat: No hearing loss, sneezing, congestion, runny nose or sore throat. SKIN: No rash or itching, lesions, wounds. CARDIOVASCULAR: No chest pain, chest pressure or chest discomfort, palpitations, edema, orthopnea, syncopal events. RESPIRATORY: No shortness of breath, cough or sputum, wheezing, hemoptysis. GASTROINTESTINAL: + anorexia, nausea, vomiting, diarrhea, abdominal cramping/pain. No melena, BRBPR. GENITOURINARY: No dysuria, frequency, urgency or retention. NEUROLOGICAL: No headache, dizziness, syncope, paralysis, ataxia, numbness or tingling in the extremities, focal weakness, change in bowel or bladder control, seizure. MUSCULOSKELETAL: + muscle, back pain, joint pain or stiffness. HEMATOLOGIC: No anemia. + Easy bleeding/bruising. LYMPHATICS: No enlarged nodes. No history of splenectomy. PSYCHIATRIC: + History of anxiety. ENDOCRINOLOGIC: No reports of sweating, cold or heat intolerance. No polyuria or polydipsia. ALLERGIES: + History of asthma. Physical Exam Narrative Seen and examined. Patient is still having diarrhea. She states every half an hour but I feel like diarrhea is getting better although slowly. Consistency of the stool also like pipestem, tape like but not watery liquid. Patient showed me her stool in the toilet. Some solid, thin consistency and fragments. No obvious blood. Patient is still having diarrhea for 5 days. Exhausted and weak. No fever Physical exam General: Alert, Oriented x3, Cooperative. Fatigue HEENT: Atraumatic, PERRLA, EOMI, Normocephalic Oral: Oral mucosa dry. No Gingival or Mucosal Lesions/ Ulcerations Neck: Supple, No JVD, Negative Carotid Bruits Chest wall/Lungs: Air entry diminished in bilateral lung bases. No crepitation/rhonchi Cardiovascular: Regular rate, Regular Rhythm, Normal S1, Normal S2, No M/G/R Abdomen: Bowel Sounds hyper, soft, Non Tender, mild distention. : No dysuria. No renal angle tenderness. No suprapubic tenderness. Extremities: No edema, Capillary Refill Less than 3 Seconds Skin: No rashes, No breakdown Musculoskeletal: No Tenderness to Palpation of Joints or Extremities Neurological: Cranial nerves II-XII grossly intact, DTR 2+/4. No acute focal neurological deficit. Psych/Mental Status: Flat affect. Lab / Micro Data 06/04/24 15:12 06/04/24 15:12 Labs: Laboratory Results - last 24 hr 06/04/24 15:12: WBC 6.7, RBC 4.08 L, Hgb 13.2, Hct 38.7, MCV 94.9, MCH 32.4 H, MCHC 34.1, RDW Std Deviation 44.3 H, RDW Coeff of Ester 12.7, Plt Count 247, MPV 9.4, Immature Gran % (Auto) 0.300, Neut % (Auto) 55.2, Lymph % (Auto) 29.9, [place] % (Auto) 11.2 H, Eos % (Auto) 3.1, Baso % (Auto) 0.3, Absolute Neuts (auto) 3.7, Absolute Lymphs (auto) 2.00, Nucleated RBC % 0, Sodium 136, Potassium 4.3, Chloride 100, Carbon Dioxide 31.0, Anion Gap 5, BUN 16, Creatinine 1.00, Estim Creat Clear Calc 33.98, Est GFR (MDRD) Af Amer 68, Est GFR (MDRD) Non-Af 56 L, BUN/Creatinine Ratio 16.0, Glucose 92, Calcium 8.9, Phosphorus 4.8, Magnesium 2.3 Micro: Microbiology 05/31/24 08:46 Stool Ova and Parasites - Final Assessment & Plan Assessment/Plan (1) Nausea vomiting and diarrhea: PLAN: Plan The patient is an 83 y/o with Hx C. difficile diarrhea/colitis who presents to the [facility] ED on 05/29/2024 with history of persistent nausea, emesis and diarrhea. CT scan of the abdomen pelvis shows diffuse inflammation throughout the large bowel. Her stool studies at that time positive for rotavirus and C. difficile antigen positive but negative for toxin with urine concerning for UTI with nitrites discharged home on oral vancomycin, Zofran and Lomotil. She presented back to the hospital having failed outpatient therapy with persistent upper GI and lower GI symptoms. Her nausea and vomiting is a lot better. She is tolerating some oral intake. Most of her symptoms are probably secondary to acute rotavirus Gastroenteritis with history of C. difficile colitis previously with positive antigen but negative toxin. Typically you would not treat her with vancomycin but she received antibiotics for urinary tract infection and she has a history of active C. difficile. Therefore prophylactic treatment with vancomycin would likely yield better results in elderly woman. Agree with probiotic therapy .According to current research, to potentially maximize the benefit of probiotics in preventing C. difficile infection, you should start taking them?as soon as possible after starting antibiotic therapy, ideally within 1-2 days; Keep taking probiotics throughout the entire course of antibiotics and for a period afterwards to allow the gut microbiome to recover for up to a year after C. difficile infection. I would not give Lomotil. Lomotil is typically contraindicated in patients with diarrhea associated with organisms that penetrate the GI mucosa?(toxigenic E. coli, Salmonella, Shigella), and pseudomembranous enterocolitis (Clostridium difficile) associated with broad-spectrum antibiotics. I will give cholestyramine or colestipol instead, stop Lomotil and Protonix.? Charges/Coding Visit Charges Inpatient E&M: 92795 Init Hosp L3
[2024-06-05] MEDS: Ensure Clear 120 ML Liquid PO ×2 (16:51→21:07)
[2024-06-05 21:04] VITALS: BP 146/80; PULSE 77; RESP 18; TEMP 36.7; O2SAT 96
[2024-06-05] MEDS: 0.9% Saline Lock 10 ML Syringe IV (21:05)
[2024-06-05] MEDS: Gabapentin 300 MG Capsule PO (21:08)
[2024-06-05] MEDS: traZODone 50 MG Tablet PO (21:08)
[2024-06-06 05:11] VITALS: BP 140/72; PULSE 74; RESP 18; TEMP 36.6; O2SAT 94
[2024-06-06] MEDS: Lactobacillis Acidophilus 1 CAP PO ×3 (05:13→20:05)
[2024-06-06] MEDS: Dicyclomine 10 MG Capsule 20 MG PO ×3 (05:13→20:04)
[2024-06-06] MEDS: Menthol/Lanolin/Calamine/Znox 113 GM Tube 1 APPLIC TOPICAL ×3 (05:15→20:19)
[2024-06-06 05:45] VITALS: BMI 19.5
[2024-06-06] MEDS: Cholestyramine/Sucrose 4 GM/PACKET PO ×2 (06:17→22:46)
[2024-06-06 09:32] VITALS: BP 130/58; PULSE 80; RESP 18; TEMP 36.2; O2SAT 100
[2024-06-06] MEDS: busPIRone 5 MG Tablet PO (09:34)
[2024-06-06] MEDS: Ensure Clear 120 ML Liquid PO ×2 (09:34→17:25)
[2024-06-06] MEDS: Na Biphos/Potassium Phosphate PACKET 1 PACKET PO ×2 (09:34→20:03)
[2024-06-06] MEDS: Enoxaparin 40 MG/0.4 ML Syringe SC (09:34)
[2024-06-06] MEDS: Vancomycin 125 MG/5 ML Susp PO.SYRINGE PO ×3 (09:35→20:17)
[2024-06-06] MEDS: Potassium Chloride Oral Tablet 20 MEQ PO (09:35)
[2024-06-06] MEDS: Acetaminophen 325 MG Tablet 650 MG PO ×3 (09:46→20:06)
[2024-06-06] MEDS: ALPRAZolam 0.25 MG Tablet PO ×3 (12:33→20:04)
[2024-06-06] MEDS: 0.9% Saline Lock 10 ML Syringe IV (12:38)
[2024-06-06] MEDS: Ondansetron ODT 4 MG Tablet PO ×2 (14:09→20:05)
[2024-06-06 14:11] VITALS: BP 112/57; PULSE 72; RESP 18; TEMP 36.7; O2SAT 98
--- NOTE | 2024-06-06 16:34 | PCM.PN.HOSP ---
Reason for Visit Reason for Visit: Diagnoses Nausea with vomiting, unspecified (06/03/24) Diarrhea, unspecified (06/03/24) Objective Data Objective Data Vital Signs: Vital Signs Temp Pulse Resp BP Pulse Ox O2 Del Method 98.1 F 72 18 112/57 L 98 Room Air 06/06/24 14:11 06/06/24 14:11 06/06/24 14:11 06/06/24 14:11 06/06/24 14:11 06/06/24 14:11 Oxygen Delivery Method Room Air Weight: 117 lb 8.102 oz Body Mass Index (BMI) 19.5 Intake & Output: Intake and Output for Last 24 Hours 06/04/24 06/05/24 06/06/24 23:59 23:59 23:59 Intake Total 1000 / 1000 1200 / 1200 400 / 400 Balance 1000 / 1000 1200 / 1200 400 / 400 Lab / Micro Data 06/04/24 15:12 06/04/24 15:12 Micro: Microbiology 05/31/24 08:46 Stool Ova and Parasites - Final 06/03/24 14:05 Stool C. difficile GDH Antigen & Toxins - Final 06/03/24 14:05 Stool Clostridioides difficile (PCR) - Final 05/30/24 09:50 Urine, Clean Catch Urine Culture - Final Culture exhibits no growth. 05/31/24 05:45 Stool Stool Lactoferrin - Final 05/31/24 05:45 Stool Enteric Bacteriology - Final Rotavirus Physical Exam Narrative Seen and examined. Patient still states that she is having bowel movement every half an hour although seems less frequent. Her stool consistency is getting solidified and is more soft. Discussed with patient's staff nurse. Exhausted and weak. No fever Physical exam General: Alert, Oriented x3, Cooperative. Fatigue HEENT: Atraumatic, PERRLA, EOMI, Normocephalic Oral: Oral mucosa dry. No Gingival or Mucosal Lesions/ Ulcerations Neck: Supple, No JVD, Negative Carotid Bruits Chest wall/Lungs: Air entry diminished in bilateral lung bases. No crepitation/rhonchi Cardiovascular: Regular rate, Regular Rhythm, Normal S1, Normal S2, No M/G/R Abdomen: Bowel Sounds hyper, soft, Non Tender, mild distention. : No dysuria. No renal angle tenderness. No suprapubic tenderness. Extremities: No edema, Capillary Refill Less than 3 Seconds Skin: No rashes, No breakdown Musculoskeletal: No Tenderness to Palpation of Joints or Extremities Neurological: Cranial nerves II-XII grossly intact, DTR 2+/4. No acute focal neurological deficit. Psych/Mental Status: Flat affect. Assessment & Plan Assessment/Plan (1) Nausea vomiting and diarrhea: PLAN: Plan Patient is an 83-year-old lady who presented with nausea vomiting and diarrhea. Patient tested positive for rotavirus on 05/26/2024. Stool for C. difficile tested positive for antigen but negative toxin. 1. Acute viral gastroenteritis with rotavirus complicated with secondary acute C. difficile infection/colitis ? Patient has been admitted to regular nursing floor symptom management with IV fluid antinausea medication initiated with subsequent monitoring of electrolyte Her repeat stool studies came back positive for rotavirus patient started on Imodium for sympton management . The patient diarrhea still persist given her recent history of C. difficile colitis and order was placed to send stool sample to rule out recurrent C. difficile. Patient on admission had a positive antigen but toxin was negative 06/04: Patient still has diarrhea watery/thin and consented with some fecal matter. No obvious blood. Started on vancomycin oral for symptomatic relief and control diarrhea. Milligrams oral rehydration. 06/05: Patient is still complaining of diarrhea although consistency improving. Continue oral vancomycin, probiotic. Patient was on Imodium before discontinued yesterday. Started on Lomotil as patient frustrated with diarrhea. 06/06: I think patient is very anxious and exhausted and restless. Probably she is might be having anxiety attack as she is shaking and she could not sleep. Started on Xanax. Patient also complained of vomiting. On Zofran. 1 dose Phenergan ordered 2. Hyponatremia Secondary to hypovolemic hyponatremia started on IV fluids subsequent monitoring of electrolyte 06/04: BMP ordered. 06/05: Serum sodium, potassium and chloride bicarb all in normal range. BUN/creatinine normal. Serum magnesium and phosphorus level normal. 3. Hypokalemia ? Secondary to GI losses corrected per protocol 4. Hypomagnesemia -Corrected for protocol 5. Hypophosphatemia ? Corrected for protocol repeat labs ordered in a.m. for 6. Mild intermittent asthma ? Not in exacerbation aerosol treatments as needed 7. Anxiety disorder ? Patient is on buspirone 8. GERD ? Patient is on PPI continue 9. Peripheral neuropathy ? Patient is on gabapentin 10. DVT prophylaxis ? On enoxaparin 11. Abnormal UA ? Sent for urinalysis started patient on ceftriaxone ? Urine culture shows no growth. UTI ruled out Charges/Coding Visit Charges Inpatient E&M: 05348 Subs Hosp L2
--- NOTE | 2024-06-06 17:13 | PN.GI_ITS ---
Subjective Subjective Patient is doing a little bit better. She still says she has frequent bowel movements but they are firming up. Objective Data Objective Data Vital Signs: Vital Signs Temp Pulse Resp BP Pulse Ox O2 Del Method 98.1 F 72 18 112/57 L 98 Room Air 06/06/24 14:11 06/06/24 14:11 06/06/24 14:11 06/06/24 14:11 06/06/24 14:11 06/06/24 14:11 Oxygen Delivery Method Room Air Weight: 117 lb 8.102 oz Body Mass Index (BMI) 19.5 Intake & Output: Intake and Output for Last 24 Hours 06/04/24 06/05/24 06/06/24 23:59 23:59 23:59 Intake Total 1000 / 1000 1200 / 1200 400 / 400 Balance 1000 / 1000 1200 / 1200 400 / 400 Lab / Micro Data 06/04/24 15:12 06/04/24 15:12 Micro: Microbiology 05/31/24 08:46 Stool Ova and Parasites - Final 06/03/24 14:05 Stool C. difficile GDH Antigen & Toxins - Final 06/03/24 14:05 Stool Clostridioides difficile (PCR) - Final 05/30/24 09:50 Urine, Clean Catch Urine Culture - Final Culture exhibits no growth. 05/31/24 05:45 Stool Stool Lactoferrin - Final 05/31/24 05:45 Stool Enteric Bacteriology - Final Rotavirus Physical Exam Narrative Seen and examined. Exhausted and weak. No fever Physical exam General: Alert, Oriented x3, Cooperative. Fatigue HEENT: Atraumatic, PERRLA, EOMI, Normocephalic Oral: Oral mucosa dry. No Gingival or Mucosal Lesions/ Ulcerations Neck: Supple, No JVD, Negative Carotid Bruits Chest wall/Lungs: Air entry diminished in bilateral lung bases. No crepitation/rhonchi Cardiovascular: Regular rate, Regular Rhythm, Normal S1, Normal S2, No M/G/R Abdomen: Bowel Sounds hyper, soft, Non Tender, mild distention. : No dysuria. No renal angle tenderness. No suprapubic tenderness. Extremities: No edema, Capillary Refill Less than 3 Seconds Skin: No rashes, No breakdown Musculoskeletal: No Tenderness to Palpation of Joints or Extremities Neurological: Cranial nerves II-XII grossly intact, DTR 2+/4. No acute focal neurological deficit. Psych/Mental Status: Flat affect. Assessment & Plan Assessment/Plan (1) Nausea vomiting and diarrhea: PLAN: Plan The patient is an 83 y/o with Hx C. difficile diarrhea/colitis who presents to the [facility] [place] [facility] on 05/29/2024 with history of persistent nausea, emesis and diarrhea. CT scan of the abdomen pelvis shows diffuse inflammation throughout the large bowel. Her stool studies at that time positive for rotavirus and C. difficile antigen positive but negative for toxin with urine concerning for UTI with nitrites discharged home on oral vancomycin, Zofran and Lomotil. She presented back to the hospital having failed outpatient therapy with persistent upper GI and lower GI symptoms. Her nausea and vomiting is a lot better. She is tolerating some oral intake. Most of her symptoms are probably secondary to acute rotavirus Gastroenteritis with history of C. difficile colitis previously with positive antigen but negative toxin. Typically you would not treat her with vancomycin but she received antibiotics for urinary tract infection and she has a history of active C. difficile. Therefore prophylactic treatment with vancomycin would likely yield better results in elderly woman. Agree with probiotic therapy .According to current research, to potentially maximize the benefit of probiotics in preventing C. difficile infection, you should start taking them?as soon as possible after starting antibiotic therapy, ideally within 1-2 days; Keep taking probiotics throughout the entire course of antibiotics and for a period afterwards to allow the gut microbiome to recover for up to a year after C. difficile infection. I would not give Lomotil. Lomotil is typically contraindicated in patients with diarrhea associated with organisms that penetrate the GI mucosa?(toxigenic E. coli, Salmonella, Shigella), and pseudomembranous enterocolitis (Clostridium difficile) associated with broad-spectrum antibiotics. I will give cholestyramine or colestipol instead, stop Lomotil and Protonix.? 06/06/2024-Lomotil and Protonix were DC'd. She was started on C. difficile medication and is on the C. difficile precautions along with probiotic on a daily basis. She was given cholestyramine. I think clinically she is improving and she had more severe rotavirus then severe C. difficile colitis. Encourage Ensure without milk products. I will also start her on low-dose Xanax therapy. [place] for sedation.
[2024-06-06] MEDS: proMETHazine 25 MG/ML Syringe 12.5 MG IM (17:26)
[2024-06-06] MEDS: busPIRone 5 MG Tablet 10 MG PO (20:04)
[2024-06-06] MEDS: Gabapentin 300 MG Capsule PO (20:06)
[2024-06-06] MEDS: traZODone 50 MG Tablet PO (20:17)
[2024-06-06 20:24] VITALS: BP 112/60; PULSE 81; RESP 16; TEMP 36.6; O2SAT 94
[2024-06-07 01:55] VITALS: BP 117/61; PULSE 79; RESP 16; TEMP 36.3; O2SAT 94
[2024-06-07] MEDS: Ondansetron ODT 4 MG Tablet PO ×2 (05:08→14:20)
[2024-06-07] MEDS: Dicyclomine 10 MG Capsule 20 MG PO ×2 (05:08→14:10)
[2024-06-07] MEDS: ALPRAZolam 0.25 MG Tablet PO ×2 (05:08→14:15)
[2024-06-07] MEDS: Acetaminophen 325 MG Tablet 650 MG PO ×2 (05:09→14:20)
[2024-06-07] MEDS: busPIRone 5 MG Tablet 10 MG PO ×2 (05:09→14:10)
[2024-06-07] MEDS: Lactobacillis Acidophilus 1 CAP PO ×2 (05:09→14:10)
[2024-06-07] MEDS: Menthol/Lanolin/Calamine/Znox 113 GM Tube 1 APPLIC TOPICAL (05:15)
[2024-06-07 06:00] VITALS: BMI 19.5
[2024-06-07 09:38] VITALS: BP 107/51; PULSE 82; RESP 16; TEMP 36.4; O2SAT 98
[2024-06-07] MEDS: Enoxaparin 40 MG/0.4 ML Syringe SC (09:38)
[2024-06-07] MEDS: Vancomycin 125 MG/5 ML Susp PO.SYRINGE PO ×2 (09:38→14:12)
[2024-06-07] MEDS: Na Biphos/Potassium Phosphate PACKET 1 PACKET PO (09:38)
[2024-06-07] MEDS: Cholestyramine/Sucrose 4 GM/PACKET PO (09:38)
--- NOTE | 2024-06-07 11:11 | CASEMGMT ---
Addendum entered by Guerline Bui 06/07/24 14:28: Received notification that pt dtr would like to speak to JOSE MANUEL MURRELL regarding HHC. TC to dtr Danica, she states that pt needs home therapy. Discussed with her the criteria for home health and that pt is not homebound. Pt does not use an AD nor is she homebound. Discussed pt may have outpt therapy but the patient did not have therapy in the hospital so it may not be ordered at [facility]. She is aware that if this is the case, pt will need to follow up with her PCP to obtain the order. Made dtr aware that if pt should chose [facility] for her therapy needs, [facility] has hospital transportation that could transport pt. Pt dtr thankful for the information and denied further questions. JOSE MANUEL MURRELL into pt room, pt nurse and student nurse aware. Discussed with pt therapy and options for outpt as well as transportation options with the [facility] van. Pt is aware JOSE MANUEL MURRELL will ask for outpt therapy rx, if it is not received then she will need to follow up with PCP. Pt kept saying just write it down. Pt aware that this will be on her dc instructions. Message to hospitalist, pt will need to f/u with PCP for therapy orders. Written on dc instructions at this time. Pt to [facility] today. Original Note: Notified by pt nurse that pt dtr wants medic alert information. JOSE MANUEL MURRELL had previously emailed her this information after a tc discussion with her. JOSE MANUEL MURRELL into pt room, pt dtr not present. Provided pt with printed medic alert information that was emailed. Pt denies any homegoing needs.
--- NOTE | 2024-06-07 12:41 | DCINST_ITS ---
Discharge Instructions Diet Discharge Diet: Light diet - advance as tolerated DC O2, CPAP, BIPAP needs Home O2 Discharge instructions: No Dressing / Incision Discharge Activity: Return to Normal Activity Weight Bearing Status: Weight bearing as tolerated Dressing / Incision Call your doctor if you observe: Fever of 101 or Higher, Coldness, Increased Maxime n, Numbness or Tingling, Change in Color, Inability to urinate, Inability to have a bowel movement, Shortness of breath, Dizziness, Fainting spells, Swelling in the ankles, Chest pain, Prolonged hiccupping, Increased palpitations (irregular heartbeat) and Calf discomfort Follow Up Care When: IN 2 WEEKS Test Results: Test results from this visit will be discussed in further detail at your follow- up appointment, if applicable. Discharge Plan Admission Admit Date/Time: 06/03/24 14:15 Primary Reason for Your Visit: Diarrhea from rotavirus and CT Attending Provider: Franko Arcos Primary Care Provider: Qian Colindres Consulting Providers: Lucía Sams; Bert Lin Discharge Orders/Prescriptions Prescriptions: New potassium chloride 20 mEq Tablet,Er Particles/Crystals 20 meq PO BIDCM 30 Days Qty: 60 0RF L.acidoph,saliva-B.bif-S.therm 175 mg Capsule 1 cap PO TID Qty: 0 0RF Rx Instructions: Ailf-xfn-ltfvlyl pain ondansetron 4 mg tablet,disintegrating 4 mg PO Q6H PRN (Reason: nausea and vomiting) Qty: 30 0RF Continued trazodone 100 MG tablet 50 - 100 mg PO QHS gabapentin 300 mg capsule 300 - 600 mg PO DAILY ondansetron 4 mg tablet,disintegrating 4 mg PO TID PRN (Reason: nausea and vomiting) Qty: 21 0RF vancomycin 125 mg capsule 125 mg PO 4X/DAY 12 Days Qty: 48 0RF budesonide 3 mg capsule,delayed,extend.release 3 mg PO QAM Qty: 30 1RF Rx Instructions: Updated Dx Codes hyoscyamine sulfate 0.125 mg tablet 0.125 mg PO BID Qty: 60 2RF Changed buspirone 5 mg tablet 10 mg PO TID 30 Days Qty: 60 3RF dicyclomine 20 mg tablet 20 mg PO TID PRN (Reason: Stomach CRAMPS) 30 Days Qty: 30 0RF Discontinued omeprazole 20 mg capsule,delayed release(DR/EC) 20 mg PO QDAY diphenoxylate-atropine [Lomotil] 2.5-0.025 mg tablet 1 tab PO 4X/DAY PRN (Reason: diarrhea) 5 Days Qty: 20 0RF Referrals / Follow Up: Qian Colindres MD [Primary Care Provider] - Friend,DO Gerardo [Med Staff - Active Staff] - Within 1 Month Disposition Disposition (needs filled in before D/C Order can be placed): Home, Self Care
--- NOTE | 2024-06-07 12:50 | PCM.DC.SUM ---
Providers Date of Admission: 06/03/24 Date of Discharge: 06/07/24 Primary Care Physician: Dr. Qian Colindres MD Consultations 06/05/24 11:47 Consult: Gastroenterology Routine Consulting Provider: [facility] Reason for Consult: chr diarrhea, not getting better EMERGENT Consult: No MD Notified: Yes Date Notified: 06/05/24 Time Notified: 11:48 Method of Notification: Text Reason For Visit: N/V/D Diagnosis Discharge Diagnosis (1) Nausea vomiting and diarrhea: Status: Inactive Code(s): R11.2 - Nausea with vomiting, unspecified; R19.7 - Diarrhea, unspecified Plan Patient is an 83-year-old lady who presented with nausea vomiting and diarrhea. Patient tested positive for rotavirus on 05/26/2024. Stool for C. difficile tested positive for antigen but negative toxin. 1. Acute viral gastroenteritis with rotavirus complicated with secondary acute C. difficile infection/colitis ? Patient has been admitted to regular nursing floor symptom management with IV fluid antinausea medication initiated with subsequent monitoring of electrolyte Her repeat stool studies came back positive for rotavirus patient started on Imodium for sympton management . The patient diarrhea still persist given her recent history of C. difficile colitis and order was placed to send stool sample to rule out recurrent C. difficile. Patient on admission had a positive antigen but toxin was negative 06/04: Patient still has diarrhea watery/thin and consented with some fecal matter. No obvious blood. Started on vancomycin oral for symptomatic relief and control diarrhea. Milligrams oral rehydration. 06/05: Patient is still complaining of diarrhea although consistency improving. Continue oral vancomycin, probiotic. Patient was on Imodium before discontinued yesterday. Started on Lomotil as patient frustrated with diarrhea. 06/06: I think patient is very anxious and exhausted and restless. Probably she is might be having anxiety attack as she is shaking and she could not sleep. Started on Xanax. Patient also complained of vomiting. On Zofran. 1 dose Phenergan was given. 06/07: Her stool is formed. She does not have diarrhea. I tried to convince her that she does not have diarrhea as her symptom complex today does not meet definition of diarrhea. Patient is discharged on vancomycin for 12 more days to complete total of 2 weeks. Advised owns-ddo-fejdvnx lactobacillus. Omeprazole and Lomotil were discontinued. Prescription given for Zofran for symptomatic management. Follow-up in GI clinic. 2. Hyponatremia Secondary to hypovolemic hyponatremia started on IV fluids subsequent monitoring of electrolyte 06/04: BMP ordered. 06/05: Serum sodium, potassium and chloride bicarb all in normal range. BUN/creatinine normal. Serum magnesium and phosphorus level normal. 3. Hypokalemia ? Secondary to GI losses corrected per protocol 06/07 prescription given for potassium supplement. 4. Hypomagnesemia -Corrected for protocol 5. Hypophosphatemia ? Corrected for protocol repeat labs ordered in a.m. for 6. Mild intermittent asthma ? Not in exacerbation aerosol treatments as needed 7. Anxiety disorder ? Patient is on buspirone 8. GERD ? Patient is on PPI continue 9. Peripheral neuropathy ? Patient is on gabapentin 10. DVT prophylaxis ? On enoxaparin 11. Abnormal UA ? Sent for urinalysis started patient on ceftriaxone ? Urine culture shows no growth. UTI ruled out Discharge medication reconciliation done. Discharge follow-up instructions completed. Discharge process discussed with the patient and all questions were answered to patient's satisfaction. Follow with PCP in 1 to 2 weeks Total time spent, exact 35 minutes on discharge meds reconciliation, examination, coordination of care with nurses and ancillary staff, review of imaging and blood test and discussion with the patient on follow-up instructions. Medications at Discharge Home Medications trazodone 100 mg tablet 50 - 100 mg PO QHS sleep 04/21/19 gabapentin 300 mg capsule 300 - 600 mg PO DAILY 08/19/22 budesonide 3 mg capsule,delayed,extended release 3 mg PO QAM #30 ea 02/28/24 hyoscyamine sulfate 0.125 mg tablet 0.125 mg PO BID dyspepsia #60 tabs 03/02/24 ondansetron 4 mg disintegrating tablet 4 mg PO TID PRN nausea and vomiting #21 tabs 05/27/24 L.acidophil,salivari-Bifido bifidum-Strep thermoph 175 mg capsule 1 cap PO TID #0 caps 06/07/24 buspirone 5 mg tablet 10 mg (2 x 5 mg) PO TID 30 days #60 tabs 06/07/24 dicyclomine 20 mg tablet 20 mg PO TID PRN Stomach CRAMPS 30 days #30 tabs 01/16/25 ondansetron 4 mg disintegrating tablet 4 mg PO Q6H PRN nausea and vomiting #30 tabs 06/07/24 potassium chloride 20 mEq tablet,extended release(part/cryst) 20 meq PO BIDCM 30 days #60 tabs 06/07/24 vancomycin 125 mg capsule 125 mg PO 4X/DAY 12 days #48 caps 06/07/24 Physical Exam Narrative Seen and examined. Patient does not have diarrhea. Stool is formed. She tries to overestimate her symptoms. No fever. Physical exam General: Alert, Oriented x3, Cooperative. Laying comfortably HEENT: Atraumatic, PERRLA, EOMI, Normocephalic Oral: Oral mucosa dry. No Gingival or Mucosal Lesions/ Ulcerations Neck: Supple, No JVD, Negative Carotid Bruits Chest wall/Lungs: Air entry diminished in bilateral lung bases. No crepitation/rhonchi Cardiovascular: Regular rate, Regular Rhythm, Normal S1, Normal S2, No M/G/R Abdomen: Bowel Sounds hyper, soft, Non Tender, mild distention. : No dysuria. No renal angle tenderness. No suprapubic tenderness. Extremities: No edema, Capillary Refill Less than 3 Seconds Skin: No rashes, No breakdown Musculoskeletal: No Tenderness to Palpation of Joints or Extremities Neurological: Cranial nerves II-XII grossly intact, DTR 2+/4. No acute focal neurological deficit. Psych/Mental Status: Flat affect. Weight / BMI Weight Weight: 117 lb 1.047 oz Body Mass Index (BMI) 19.5 ABG / Lab / Microbiology Data 06/04/24 15:12 06/04/24 15:12 Microbiology: Microbiology 05/31/24 08:46 Stool Ova and Parasites - Final 06/03/24 14:05 Stool C. difficile GDH Antigen & Toxins - Final 06/03/24 14:05 Stool Clostridioides difficile (PCR) - Final 05/30/24 09:50 Urine, Clean Catch Urine Culture - Final Culture exhibits no growth. 05/31/24 05:45 Stool Stool Lactoferrin - Final 05/31/24 05:45 Stool Enteric Bacteriology - Final Rotavirus D/C Instructions Discharge Diet: Light diet - advance as tolerated Weight Bearing Status: Weight bearing as tolerated Call your doctor if you observe: Fever of 101 or Higher, Coldness, Increased Pain, Numbness or Tingling, Change in Color, Inability to urinate, Inability to have a bowel movement, Shortness of breath, Dizziness, Fainting spells, Swelling in the ankles, Chest pain, Prolonged hiccupping, Increased palpitations (irregular heartbeat) and Calf discomfort DC O2, CPAP, BIPAP Needs Home O2 Discharge instructions: No When: IN 2 WEEKS Meaningful Use Info Meaningful Use Meaningful Use Diagnoses (Choose all that apply): None applicable Ischemic Stroke Statin Dosing Therapy Reference: STATIN DOSE THERAPY REFERENCE: * Patients > 75 years receive moderate or high dose statin therapy. * Patients 75 years or YOUNGER should receive HIGH intensity statin dose unless contraindicated. You will be required to document reason for non-treatment if statin daily dose does not meet guidelines. HIGH DOSE STATIN THERAPY DAILY Atorvastatin > than or = to 40 mg Rosuvastatin > than or = to 20 mg Amlodipine + Atorvastatin > than or = to 2.5/40 mg Ezetimibe + Simvastatin 10/80 mg Simvastatin 80mg Discharge Plan Admission Admit Date/Time: 06/03/24 14:15 Primary Reason for Your Visit: Diarrhea from rotavirus and CT Attending Provider: Franko Arcos Primary Care Provider: Qian Colindres Consulting Providers: Lucía Sams; Bert Lin Discharge Orders/Prescriptions Prescriptions: New potassium chloride 20 mEq Tablet,Er Particles/Crystals 20 meq PO BIDCM 30 Days Qty: 60 0RF L.acidoph,saliva-B.bif-S.therm 175 mg Capsule 1 cap PO TID Qty: 0 0RF Rx Instructions: Hivq-moz-gkotfdf pain ondansetron 4 mg tablet,disintegrating 4 mg PO Q6H PRN (Reason: nausea and vomiting) Qty: 30 0RF Continued trazodone 100 MG tablet 50 - 100 mg PO QHS gabapentin 300 mg capsule 300 - 600 mg PO DAILY ondansetron 4 mg tablet,disintegrating 4 mg PO TID PRN (Reason: nausea and vomiting) Qty: 21 0RF vancomycin 125 mg capsule 125 mg PO 4X/DAY 12 Days Qty: 48 0RF budesonide 3 mg capsule,delayed,extend.release 3 mg PO QAM Qty: 30 1RF Rx Instructions: Updated Dx Codes hyoscyamine sulfate 0.125 mg tablet 0.125 mg PO BID Qty: 60 2RF Changed buspirone 5 mg tablet 10 mg PO TID 30 Days Qty: 60 3RF dicyclomine 20 mg tablet 20 mg PO TID PRN (Reason: Stomach CRAMPS) 30 Days Qty: 30 0RF Discontinued omeprazole 20 mg capsule,delayed release(DR/EC) 20 mg PO QDAY diphenoxylate-atropine [Lomotil] 2.5-0.025 mg tablet 1 tab PO 4X/DAY PRN (Reason: diarrhea) 5 Days Qty: 20 0RF Referrals / Follow Up: Qian Colindres MD [Primary Care Provider] - 06/14/24 10:20 am Gerardo Quesada DO [Med Staff - Active Staff] - 06/22/24 2:00 pm Disposition Disposition (needs filled in before D/C Order can be placed): Home, Self Care Charges/Coding Visit Charges Inpatient E&M: 46033 Disch Hosp >30min
--- NOTE | 2024-06-07 13:00 | EX.PCM.PN.GI ---
Subjective Subjective Patient is no longer having any more signs or symptoms of lower GI bleeding. She is having multiple frequent stools. They are mostly postprandial. She tolerated breakfast without any problems. I told her that as long as she is on antibiotics she will have some diarrhea. That is a normal response with antibiotic usage. She also has a history of IBS with diarrhea. Objective Data Objective Data Vital Signs: Vital Signs Temp Pulse Resp BP Pulse Ox O2 Del Method 97.6 F L 82 16 107/51 L 98 Room Air 06/07/24 09:38 06/07/24 09:38 06/07/24 09:38 06/07/24 09:38 06/07/24 09:38 06/07/24 09:38 Oxygen Delivery Method Room Air Weight: 117 lb 1.047 oz Body Mass Index (BMI) 19.5 Intake & Output: Intake and Output for Last 24 Hours 06/05/24 06/06/24 06/07/24 23:59 23:59 23:59 Intake Total 1200 / 1200 400 / 400 1000 / 1000 Balance 1200 / 1200 400 / 400 1000 / 1000 Lab / Micro Data 06/04/24 15:12 06/04/24 15:12 Micro: Microbiology 05/31/24 08:46 Stool Ova and Parasites - Final 06/03/24 14:05 Stool C. difficile GDH Antigen & Toxins - Final 06/03/24 14:05 Stool Clostridioides difficile (PCR) - Final 05/30/24 09:50 Urine, Clean Catch Urine Culture - Final Culture exhibits no growth. 05/31/24 05:45 Stool Stool Lactoferrin - Final 05/31/24 05:45 Stool Enteric Bacteriology - Final Rotavirus Physical Exam Narrative Seen and examined. Exhausted and weak. No fever Physical exam General: Alert, Oriented x3, Cooperative. Fatigue HEENT: Atraumatic, PERRLA, EOMI, Normocephalic Oral: Oral mucosa dry. No Gingival or Mucosal Lesions/ Ulcerations Neck: Supple, No JVD, Negative Carotid Bruits Chest wall/Lungs: Air entry diminished in bilateral lung bases. No crepitation/rhonchi Cardiovascular: Regular rate, Regular Rhythm, Normal S1, Normal S2, No M/G/R Abdomen: Bowel Sounds hyper, soft, Non Tender, mild distention. : No dysuria. No renal angle tenderness. No suprapubic tenderness. Extremities: No edema, Capillary Refill Less than 3 Seconds Skin: No rashes, No breakdown Musculoskeletal: No Tenderness to Palpation of Joints or Extremities Neurological: Cranial nerves II-XII grossly intact, DTR 2+/4. No acute focal neurological deficit. Psych/Mental Status: Flat affect. Assessment & Plan Assessment/Plan (1) Nausea vomiting and diarrhea: PLAN: Plan The patient is an 83 y/o with Hx C. difficile diarrhea/colitis who presents to the [facility] ED on 05/29/2024 with history of persistent nausea, emesis and diarrhea. CT scan of the abdomen pelvis shows diffuse inflammation throughout the large bowel. Her stool studies at that time positive for rotavirus and C. difficile antigen positive but negative for toxin with urine concerning for UTI with nitrites discharged home on oral vancomycin, Zofran and Lomotil. She presented back to the hospital having failed outpatient therapy with persistent upper GI and lower GI symptoms. Her nausea and vomiting is a lot better. She is tolerating some oral intake. Most of her symptoms are probably secondary to acute rotavirus Gastroenteritis with history of C. difficile colitis previously with positive antigen but negative toxin. Typically you would not treat her with vancomycin but she received antibiotics for urinary tract infection and she has a history of active C. difficile. Therefore prophylactic treatment with vancomycin would likely yield better results in elderly woman. Agree with probiotic therapy .According to current research, to potentially maximize the benefit of probiotics in preventing C. difficile infection, you should start taking them?as soon as possible after starting antibiotic therapy, ideally within 1-2 days; Keep taking probiotics throughout the entire course of antibiotics and for a period afterwards to allow the gut microbiome to recover for up to a year after C. difficile infection. I would not give Lomotil. Lomotil is typically contraindicated in patients with diarrhea associated with organisms that penetrate the GI mucosa?(toxigenic E. coli, Salmonella, Shigella), and pseudomembranous enterocolitis (Clostridium difficile) associated with broad-spectrum antibiotics. I will give cholestyramine or colestipol instead, stop Lomotil and Protonix.? 06/06/2024-Lomotil and Protonix were DC'd. She was started on C. difficile medication and is on the C. difficile precautions along with probiotic on a daily basis. She was given cholestyramine. I think clinically she is improving and she had more severe rotavirus then severe C. difficile colitis. Encourage Ensure without milk products. I will also start her on low-dose Xanax therapy. [place] for sedation. 06/07/2024-patient is tolerating cholestyramine without any problems. She is tolerating alprazolam without any problems. She will need to be on vancomycin for 6 weeks and then she will need Zinplava. Because she is elderly, has a pre-existing diagnosis of IBS with diarrhea , had a recent rotavirus infection and this is her second episode of C. difficile colitis. I think she should be on a long taper. I would continue cholestyramine and as needed alprazolam along with scheduled dicyclomine or Levsin. Patient is okay with this plan.
[2024-06-07 14:21] VITALS: BP 121/63; PULSE 85; RESP 18; TEMP 36.4; O2SAT 100
== END 2024-06-07 17:05 | disposition home or self-care (01) | DRG 392 ==
LOC: ED 11:35 → MS3 14:25
PROVIDERS: Internal Medicine; Admitting Provider Family Medicine; Emergency Provider Surgery; PCP Internal Medicine; Visit Provider Internal Medicine
DX: A08.0 Rotaviral enteritis (principal); E44.1 Mild protein-calorie malnutrition; E87.1 Hypo-osmolality and hyponatremia; N30.00 Acute cystitis without hematuria; Z68.1 Body mass index [BMI] 19.9 or less, adult; J45.20 Mild intermittent asthma, uncomplicated; E83.39 Other disorders of phosphorus metabolism; K21.9 Gastro-esophageal reflux disease without esophagitis; G62.9 Polyneuropathy, unspecified; K58.0 Irritable bowel syndrome with diarrhea; E86.0 Dehydration; E87.6 Hypokalemia; K57.30 Diverticulosis of large intestine without perforation or abscess without bleeding; F41.9 Anxiety disorder, unspecified; K58.1 Irritable bowel syndrome with constipation; K58.2 Mixed irritable bowel syndrome; N18.2 Chronic kidney disease, stage 2 (mild); F41.8 Other specified anxiety disorders; E83.42 Hypomagnesemia; K59.09 Other constipation; Z79.2 Long term (current) use of antibiotics; R10.84 Generalized abdominal pain; Z79.51 Long term (current) use of inhaled steroids; Z87.891 Personal history of nicotine dependence; Z90.710 Acquired absence of both cervix and uterus; A04.72 Enterocolitis due to Clostridium difficile, not specified as recurrent; B96.89 Other specified bacterial agents as the cause of diseases classified elsewhere; B96.20 Unspecified Escherichia coli [E. coli] as the cause of diseases classified elsewhere; Z79.899 Other long term (current) drug therapy; Z79.52 Long term (current) use of systemic steroids
CPT/HCPCS: 36415; 74177; 80048; 80053; 81001; 83605; 83630; 83690; 83735; 84100; 84145; 85025; 87086; 87177; 87209; 87493; 87506; 94668; 99285; Q9967; A4216; J2405

== ENCOUNTER 2024-07-26 07:11 | Day surgery (SDC) | payer MEDICARE, SELFPAY ==
[2024-07-26] VITALS (12 sets, daily range): BP systolic 81–126; BP diastolic 52–75; PULSE 71–80; RESP 16; TEMP 36.2–36.6; O2SAT 90–96; BMI 18.7
--- NOTE | 2024-07-26 08:33 | PCM.PRE.AN2 ---
ASA Classification* ASA Classification ASA Classification: 2 Assessment & Plan Anesthesia* Anesthesia Assessment Anesthesia Assessment: Discussed sedation and/or anesthesia options, risks, benefits, and alternatives with patient/parents/legal guardian/POA. Questions invited. The patient/parents/legal guardian/POA seems to understand and agrees to proceed with anesthesia plan. Reviewed the physical assessment, medical history, allergy history and patient home medications list prior to surgery/procedure/anesthetic and documented any changes. Performed airway and anesthesia risk assessments. Anesthesia Type Anesthesia Type: MAC History Source History Obtained from:: Patient and Chart Anesthesia Focused Assessment* Temperature: 97.2 F Pulse Rate: 80 Blood Pressure: 121/65 Respiratory Rate: 16 Pulse Ox: 94 Oxygen Delivery Method: Room Air Airway Assessment Mouth opens: >3 cm Mallampati Score: II Teeth Condition: Partial (Patient is a lower partial.) Neck Range of motion (ROM): Limited ROM Focused Labs Anesthesia Preop lab: CBC WBC 6.7 K/mm3 (4.4-11.0) 06/04/24 15:12 06/04/24 RBC 4.08 M/mm3 (4.2-5.4) L 06/04/24 15:12 06/04/24 Hgb 13.2 g/dL (12.0-15.0) 06/04/24 15:12 06/04/24 Hct 38.7 % (37-47) 06/04/24 15:12 06/04/24 Plt Count 247 K/mm3 (150-450) 06/04/24 15:12 06/04/24 CHEMISTRY Potassium 4.3 mmol/L (3.5-5.1) 06/04/24 15:12 06/04/24 Sodium 136 mmol/L (136-145) 06/04/24 15:12 06/04/24 Magnesium 2.3 mg/dL (1.6-2.6) 06/04/24 15:12 06/04/24 Phosphorus 4.8 mg/dL (2.5-4.9) 06/04/24 15:12 06/04/24 BUN 16 mg/dL (7-18) 06/04/24 15:12 06/04/24 Creatinine 1.00 mg/dL (0.55-1.02) 06/04/24 15:12 06/04/24 Glucose 92 mg/dL (74-106) 06/04/24 15:12 06/04/24 POC Glucose 92 mg/dL (70-110) 07/22/20 07:38 07/22/20 TSH 2.63 uIU/mL (0.358-3.74) 05/25/22 18:50 05/25/22 COAG Pre-Assessment Diagnosis/Proposed Procedure Planned Operative Procedure(s): CYSTO POSS BLADDER BIOPSY WITH FULGERATION Anesthesia History 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 When Was Last Pacemaker Check QUESTION #4 FULL TEXT: You/Your Family Experience fever (hyperthermia) with Anesthesia Last Oral Intake Last Oral intake: Last Oral Intake NPO since 19:00 07/26/24 07:37 Meds taken in AM with sips of water? Meds patient instructed to take am of surgery PONV PONV - golf course superintendent: PONV - golf course superintendent Female Yes 07/16/24 13:35 HX of Motion Sickness No 07/16/24 13:35 HX of N/V After Surgery No 07/16/24 13:35 Non-Smoker Yes 07/16/24 13:35 Duration of Surgery greater No 07/16/24 13:35 than 60 minutes Number of Risk Factors 2 07/16/24 13:35 PONV Score Moderate Risk 07/16/24 13:35 Height & Weight Height & Weight: Anesthesia: Height & Weight Height 5 ft 5 in 07/26/24 07:37 Weight: 51 kg 07/26/24 07:37 Body Mass Index (BMI) 18.7 07/26/24 07:37 Respiratory Assessment Respiratory Assessment - golf course superintendent: Respiratory Tract Infection Hx - golf course superintendent Hx Respiratory Tract Infection No 07/16/24 13:35 STOP Sleep Apnea STOP Sleep Apnea - golf course superintendent: STOP Sleep Apnea - golf course superintendent Hx Hypertension No 07/16/24 13:35 Hx Sleep Apnea No 07/16/24 13:35 CPAP BIPAP Do you snore loudly (louder No 07/16/24 13:35 than talking or can be heard Do you often feel tired/ No 07/16/24 13:35 fatigued/ sleepy during daytime? Has anyone observed you stop No 07/16/24 13:35 breathing during sleep? STOP Results Negative 07/16/24 13:35 QUESTION #5 FULL TEXT : Do you snore loudly (louder than talking or can be heard through closed doors)? 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 Specify any problems Hx of Preganancy in last 3 No 07/16/24 13:35 Months Nurse Filling Out Transfusion DSCHRIBER 07/16/24 13:35 & Questions: Date: 07/16/24 07/16/24 13:35 Time: 13:38 07/16/24 13:35 Patient unable to answer at this time (ie. confused, unrespo /Reproduction History /Reproductive History - golf course superintendent: /Reproductive Hx- golf course superintendent Hx Now No 07/16/24 13:35 Gestational Age (in weeks): EDC: Hx Hx Para Hx Section SAB No 07/16/24 13:35 PFSH Medical History History of Clostridium difficile infection Post-menopausal Bladder disease Restless legs Leg cramps History of stress test CKD (chronic kidney disease), stage II Colitis GI bleed Wears glasses Wears partial dentures Non-smoker Diverticulosis Acute gastritis Wears dentures Former smoker Gastroesophageal reflux disease Chronic constipation Diarrhea Anxiety History of bronchitis Asthma Anxiety Home Medications ?Medication ?Instructions ?Recorded ?Last Taken ?Type trazodone 100 mg tablet 50 - 100 mg PO QHS sleep 04/21/19 07/25/24 History gabapentin 300 mg capsule 300 - 600 mg PO QHS 08/19/22 07/25/24 History buspirone 5 mg tablet 10 mg (2 x 5 mg) PO TID 30 days 06/07/24 07/26/24 Rx #60 tabs sulfamethoxazole 400 1 tab PO BID 14 days #28 tabs 06/22/24 07/25/24 Rx mg-trimethoprim 80 mg tablet d-mannose 500 mg capsule 1,500 mg PO DAILY 07/16/24 07/25/24 History mirabegron 50 mg tablet,extended 50 mg PO DAILY 07/16/24 07/25/24 History release 24 hr (Myrbetriq) phenazopyridine 95 mg tablet 95 mg PO TID PRN pain 07/16/24 Unknown History Allergy/AdvReac Type Severity Reaction Status Date / Time cephalexin Allergy Intermediate Other Verified 07/26/24 07:33 nitrofurantoin (From Allergy Intermediate Other Verified 07/26/24 07:33 Macrobid) prednisone Allergy Intermediate Other Verified 07/26/24 07:33 Sulfa (Sulfonamide Allergy Intermediate Other Verified 07/26/24 07:33 Antibiotics) erythromycin base (From Allergy Nausea Verified 07/26/24 07:33 E-Mycin) Penicillins Allergy Vomiting Verified 07/26/24 07:33 Family History Father , 57 Heart disease Myocardial infarction Mother Alzheimer disease Surgical History History of appendectomy History of colonoscopy (~2010) History of esophagogastroduodenoscopy (EGD) (~2013) History of breast implant removal History of breast implant History of hysterectomy with oophorectomy History of cholecystectomy History of tonsillectomy and adenoidectomy Social History household members: none Smoking Status: Former smoker alcohol intake: never substance use type: does not use Review of Systems (Anesthesia) ROS Narrative System reviewed and no additional complaints, except as documented. Physical Exam Resp clear to auscultation bilaterally
--- NOTE | 2024-07-26 08:52 | DCINST_ITS ---
Discharge Instructions Diet Discharge Diet: No restrictions Activity Discharge Activity: Return to Normal Activity Dressing / Incision Call your doctor if you observe: Fever of 101 or Higher, Inability to urinate and Inability to have a bowel movement Follow Up Care Please Follow Up With: Federica Ortiz MD When: The office will call to make follow-up arrangements Test Results: Test results from this visit will be discussed in further detail at your follow- up appointment, if applicable. Discharge Plan Admission Attending Provider: Federica Ortiz Primary Care Provider: Qian Colindres Consulting Providers: Gerardo Quesada Instructions Print Language: Japanese Discharge Orders/Prescriptions Prescriptions: Continued sulfamethoxazole-trimethoprim 400-80 mg tablet 1 tab PO BID 14 Days Qty: 28 1RF trazodone 100 MG tablet 50 - 100 mg PO QHS gabapentin 300 mg capsule 300 - 600 mg PO QHS buspirone 5 mg tablet 10 mg PO TID 30 Days Qty: 60 3RF d-mannose 500 mg capsule 1,500 mg PO DAILY phenazopyridine 95 mg tablet 95 mg PO TID PRN (Reason: pain) mirabegron [Myrbetriq] 50 mg tablet extended release 24 hr 50 mg PO DAILY Referrals / Follow Up: Qian Colindres MD [Primary Care Provider] - Disposition Disposition (needs filled in before D/C Order can be placed): Home, Self Care
--- NOTE | 2024-07-26 08:53 | PCM.OPRPT ---
Operative Report (Standard) Operative Information Date of Procedure: 07/26/24 Pre-Operative Diagnosis: Chronic bladder pain Post-Operative Diagnosis: Same Surgery/Procedure Performed: Cystoscopy under anesthesia brick wheeler: No Type of Anesthesia: MAC RN Documented Start/Stop Times: Operation Date: 07/26/24 09:05 Case Time Into Pre-Op 07/26/24 07:16 Out of Pre-Op 07/26/24 08:53 Anesthesia Start 07/26/24 08:55 Into Room 07/26/24 08:55 Procedure Start 07/26/24 09:06 Procedure End 07/26/24 09:09 Anesthesia End 07/26/24 09:13 Out of Room 07/26/24 09:13 Into Recovery 07/26/24 09:16 Procedure Start Time: 09:06 Procedure Stop Time: 09:09 Select all DRAINS/GRAFTS/IMPLANTS that apply: None Estimated Blood Loss: <5cc Specimen collected: No Description of surgery: The patient is an 83-year-old female with a history of chronic bladder pain who is struggling with discomfort, urgency and frequency. She elected to have cystoscopic evaluation under anesthesia. Informed consent was obtained. The patient was taken to the operating room and placed on the operating room table. Anesthesia monitored the head, neck, airway, IV access and vital signs throughout the case. Once anesthesia was appropriately administered, she was placed into dorsolithotomy position was prepped and draped in usual sterile fashion. The cystoscope was inserted through the urethra under direct visualization into the urinary bladder. Cystoscopic evaluation revealed no evidence of mass, erythema, ulceration or foreign body. She does have diffuse detrusor trabeculation and hypertrophy and bilateral Hutch diverticula. Her bladder capacity was measured at 500 cc. The cystoscope was then removed and the patient was awakened and taken to the recovery room in good condition. There were no complications during the procedure. Surgical Findings: No Darrin's ulcers were identified, she has detrusor hypertrophy and trabeculation with Hutch diverticula bilaterally. Bladder capacity of 500 cc. Complications Complications: No Admit VTE Documentation VTE Present on Admission: Yes VTE Mechan Device Prophylaxis: SCD's VTE Pharm Prophylaxis ordered?: No Reason prophylaxis not ordered: Treatment Not Indicated
--- NOTE | 2024-07-26 09:43 | PCM.POST.ANE ---
Anesthesia: Postop Eval I Current Vital Signs Temperature: 98 F Pulse Rate: 78 Blood Pressure: 114/60 Respiratory Rate: 16 Pulse Ox: 94 Oxygen Delivery Method: Room Air Assessment Airway patent: Yes Spontaneous unlabored respirations: Yes Mental status: Awake and Calm nausea: No Vomiting: No Anesthesia Complication: No Fluid Hydration Crystalloid volume administer (ml): 10 Total IV fluid infused: 10 Progress Note Anesthesia document: Postop Eval 1 completed: Yes
[2024-07-26] MEDS: Phenazopyridine 95 MG Tablet 190 MG PO (10:47)
--- NOTE | 2024-07-26 12:45 | POSTOPAN2_ITS ---
Anesthesia Postop Eval I Sum Postop Eval Completion status Anesthesia document: Postop Eval 1 completed: Yes Anesthesia Postop Eval I Summary Anesthesia Postop Eval I Summary: Anesthesia Postop Eval I: Assessment Summary Airway patent Yes 07/26/24 09:43 ACCOUNT [email or web address] Spontaneous unlabored Yes 07/26/24 09:43 ACCOUNT [email or web address] respirations Mental status Awake,Calm 07/26/24 09:43 ACCOUNT [email or web address] nausea No 07/26/24 09:43 ACCOUNT [email or web address] Vomiting No 07/26/24 09:43 ACCOUNT [email or web address] Anesthesia Postop Eval I: Fluid Summary Crystalloid volume administer 10 07/26/24 09:43 ACCOUNT [email or web address] (ml) Colloids volume administered ( ml) Blood Product volume administered (ml) Total IV fluid infused 10 07/26/24 09:43 ACCOUNT UNDERWRITERJOEL Anesthesia Postop Eval I: Summary Notes Anesthesia Complication No 07/26/24 09:43 ACCOUNT UNDERWRITERJOEL Anesthesia Complication Comment: Post-operative progress note Anesthesia: Postop Eval II Evaluation Mental status: Awake and Calm Pain Level: 0 nausea: No Vomiting: No Complications Anesthesia Complication: No
--- NOTE | 2024-07-26 12:45 | PCM.POSTANE2 ---
Anesthesia Postop Eval I Sum Postop Eval Completion status Anesthesia document: Postop Eval 1 completed: Yes Anesthesia Postop Eval I Summary Anesthesia Postop Eval I Summary: Anesthesia Postop Eval I: Assessment Summary Airway patent Yes 07/26/24 09:43 JUNIOR WEB [email or web address] Spontaneous unlabored Yes 07/26/24 09:43 JUNIOR WEB [email or web address] respirations Mental status Awake,Calm 07/26/24 09:43 JUNIOR WEB [email or web address] nausea No 07/26/24 09:43 JUNIOR WEB [email or web address] Vomiting No 07/26/24 09:43 JUNIOR WEB DESIGNERJOEL Anesthesia Postop Eval I: Fluid Summary Crystalloid volume administer 10 07/26/24 09:43 JUNIOR WEB [email or web address].[email or web address] (ml) Colloids volume administered ( ml) Blood Product volume administered (ml) Total IV fluid infused 10 07/26/24 09:43 JUNIOR WEB DESIGNERJOEL Anesthesia Postop Eval I: Summary Notes Anesthesia Complication No 07/26/24 09:43 JUNIOR WEB DESIGNERJOEL Anesthesia Complication Comment: Post-operative progress note Anesthesia: Postop Eval II Evaluation Mental status: Awake and Calm Pain Level: 0 nausea: No Vomiting: No Complications Anesthesia Complication: No
== END 2024-07-26 11:04 | disposition home or self-care (01) ==
LOC: SDC 07:13 → AC 07:14
PROVIDERS: PCP Internal Medicine; Referring Provider Urology; Visit Provider Urology
PROC: 0TBB8ZX Excision of Bladder, Via Natural or Artificial Opening Endoscopic, Diagnostic (ICD-10-PCS; CPT 52000; principal; 2024-07-26 08:55)
DX: R39.82 Chronic bladder pain (principal); K21.9 Gastro-esophageal reflux disease without esophagitis; J45.909 Unspecified asthma, uncomplicated; Z87.891 Personal history of nicotine dependence; R39.15 Urgency of urination; R35.0 Frequency of micturition; N32.89 Other specified disorders of bladder; N32.3 Diverticulum of bladder; N18.2 Chronic kidney disease, stage 2 (mild); F41.9 Anxiety disorder, unspecified; Z79.899 Other long term (current) drug therapy
CPT/HCPCS: 52000; 00910; 93005; A4216; J2405

== ENCOUNTER → 2024-09-25 | Outpatient (CLI) | payer MEDICARE, SELFPAY ==
--- NOTE | 2024-09-25 14:57 | CT_ITS ---
PROCEDURE: CTA ABD/PELVIS W/WO CONTRAST 09/25/2024 REASON FOR EXAM: SUPERIOR MESENTERIC ARTERY SYNDROME TECHNIQUE: CTA imaging of the abdomen and pelvis with intravenous contrast. Multiplanar and multisequence images were obtained. CONTRAST: Isovue-[id number] VOLUME: 100 mL One or more dose reduction techniques were used (e.g., Automated exposure control, adjustment of the mA and/or kV according to patient size, use of iterative reconstruction technique). RADIATION DOSE SUMMARY: CTDlvol: 42.7 mGy DLP: 350.48 mGycm COMPARISON: 05/29/2024. 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 No other significant stenosis of the celiac artery or its branches. No significant stenosis of the superior and inferior mesenteric arteries. Prior hysterectomy. Prior cholecystectomy. Mild diffuse thickening of the stomach, probably gastritis. Diffuse colonic diverticulosis. Mild thickening of the sigmoid colon, possibly mild acute inflammatory pathology. Prior appendectomy. The visualized lung bases are unremarkable. Normal liver. Normal extrahepatic biliary system. Normal spleen. Normal pancreas. Normal bilateral adrenal glands. Normal size of the right kidney. There is no right renal mass. There are no right renal calculi. There is no right hydronephrosis. Normal visualized right ureter. Normal size of the left kidney. There is no left renal mass. There are no left renal calculi. There is no left hydronephrosis. Normal visualized left ureter. Normal small intestine. There is no demonstrated peritoneal fluid. Mild atheromatous plaques of the abdominal aorta. Normal inferior vena cava. Normal retroperitoneum. Normal urinary bladder. There is no pelvic mass lesion or lymphadenopathy. There is no pelvic fluid. Normal abdominal wall. Mild diffuse spondylosis. CT/CTA Abd/Pelvis W/WO Contrast IMPRESSION: 1. 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 2. No other significant stenosis of the celiac artery or its branches. 3. No significant stenosis of the superior and inferior mesenteric arteries. 4. Prior hysterectomy. 5. Prior cholecystectomy. 6. Mild diffuse thickening of the stomach, probably gastritis. 7. Diffuse colonic diverticulosis. 8. Mild thickening of the sigmoid colon, possibly mild acute inflammatory patho logy. 9. Prior appendectomy. Reading [facility]
[2024-09-25 15:41] LABS: CREATININE FINGERSTICK < 1.0 mg/dL (0.55-1.02); EGFR FINGERSTICK > 60.0000 mL/min (>60)
== END | disposition home or self-care (01) ==
LOC: CT 14:56
PROVIDERS: PCP Internal Medicine; Referring Provider Internal Medicine Gastroenterology; Visit Provider Internal Medicine Gastroenterology
DX: K55.1 Chronic vascular disorders of intestine (principal); K57.92 Diverticulitis of intestine, part unspecified, without perforation or abscess without bleeding
CPT/HCPCS: 74174; Q9967

== ENCOUNTER → 2024-11-30 | Outpatient (CLI) | payer MEDICARE, SELFPAY ==
[2024-11-30 16:07] LABS: Hematocrit 47.0 % (37-47); Hemoglobin 15.2 g/dL (12.0-15.0); Immature Granulocytes Count 0.030 X10^3/uL (0.0-0.0); Mean Corp Hgb Conc 32.3 g/dL (32-36); Mean Corpuscular Volume 102.2 fL (81-99); Mean Platelet Vol. 9.3 fl (6.2-12.0); NRBC Flagged by Analyzer 0 % (0-5); Platelet Count 154 K/mm3 (150-450); RBC Distribution Width CV 12.4 % (11.6-14.6); RBC Distribution Width SD 46.7 fl (35.1-43.9); Red Blood Count 4.60 M/mm3 (4.2-5.4); White Blood Count 8.8 K/mm3 (4.4-11.0)
[2024-11-30 16:31] LABS: AST(SGOT) 42 U/L (<=31); Alanine Aminotransfer ALT/SGPT 22 U/L (<=34); Albumin, Serum 4.3 g/dL (3.4-4.8); Alkaline Phosphatase 97 U/L (35-104); Anion Gap 13 (5-15); BUN 19 mg/dL (4-19); BUN/Creat Ratio 25.6 RATIO (10-20); Calcium,Total 9.0 mg/dL (7.6-11.0); Carbon Dioxide 22.1 mmol/L (21.0-32.0); Chloride 101 mmol/L (98-108); Globulin 2.8 g/dL (2.2-4.2); Glucose 97 mg/dL (70-99); Potassium 4.2 mmol/L (3.3-5.1)
== END | disposition home or self-care (01) ==
LOC: LAB 14:08
PROVIDERS: PCP Internal Medicine; Referring Provider Internal Medicine Gastroenterology; Visit Provider Internal Medicine Gastroenterology
DX: K62.5 Hemorrhage of anus and rectum (principal); R19.7 Diarrhea, unspecified
CPT/HCPCS: 36415; 80053; 85025